=== PATIENT | female | born 1975 | race Caucasian/White ===

== ENCOUNTER → 2019-11-18 09:58 | Outpatient (BNVA) | payer MEDICAID, SELFPAY | PROVIDERS: Family Provider Family Medicine; PCP Family Medicine; Visit Provider Anesthesiology | DX: M54.5 Low back pain (principal); M50.30 Other cervical disc degeneration, unspecified cervical region; F17.210 Nicotine dependence, cigarettes, uncomplicated; Z79.891 Long term (current) use of opiate analgesic | CPT/HCPCS: 99214 ==

== ENCOUNTER → 2020-01-13 10:51 | Outpatient (BNVA) | payer MEDICAID, SELFPAY | PROVIDERS: Family Provider Family Medicine; PCP Family Medicine; Visit Provider Nurse Practitioner | DX: G89.29 Other chronic pain (principal); M54.42 Lumbago with sciatica, left side; M17.0 Bilateral primary osteoarthritis of knee; F17.210 Nicotine dependence, cigarettes, uncomplicated; Z79.891 Long term (current) use of opiate analgesic | CPT/HCPCS: 99215 ==

== ENCOUNTER → 2020-03-09 10:34 | Outpatient (BNVA) | payer MEDICAID, SELFPAY | PROVIDERS: Family Provider Family Medicine; PCP Family Medicine; Visit Provider Anesthesiology | DX: M17.0 Bilateral primary osteoarthritis of knee (principal); M25.561 Pain in right knee; M25.552 Pain in left hip; F17.210 Nicotine dependence, cigarettes, uncomplicated; Z79.891 Long term (current) use of opiate analgesic | CPT/HCPCS: 20610; 77003; J1030; J2001; J3490 ==

== ENCOUNTER → 2020-03-21 15:20 | Outpatient (BNVA) | payer MEDICAID, SELFPAY | PROVIDERS: Family Provider Family Medicine; PCP Nurse Practitioner Family; Visit Provider Nurse Practitioner Family | DX: I10 Essential (primary) hypertension (principal); K95.09 Other complications of gastric band procedure; E55.9 Vitamin D deficiency, unspecified; N93.9 Abnormal uterine and vaginal bleeding, unspecified; F52.22 Female sexual arousal disorder | CPT/HCPCS: 80053; 80061; 81003; 82306; 82607; 82746; 84425; 84443; 85025 ==

== ENCOUNTER → 2020-04-11 10:24 | Outpatient (BNVA) | payer MEDICAID, SELFPAY | PROVIDERS: Family Provider Family Medicine; PCP Nurse Practitioner Family; Visit Provider Anesthesiology | DX: G89.29 Other chronic pain (principal); M54.42 Lumbago with sciatica, left side; M54.9 Dorsalgia, unspecified; M50.30 Other cervical disc degeneration, unspecified cervical region; M17.0 Bilateral primary osteoarthritis of knee; F17.210 Nicotine dependence, cigarettes, uncomplicated; Z79.891 Long term (current) use of opiate analgesic | CPT/HCPCS: 99214 ==

== ENCOUNTER → 2020-04-26 14:05 | Outpatient (BNVA) | payer MEDICAID, SELFPAY | PROVIDERS: Family Provider Family Medicine; PCP Nurse Practitioner Family; Visit Provider Obstetrics & Gynecology | DX: N93.9 Abnormal uterine and vaginal bleeding, unspecified (principal); Z90.721 Acquired absence of ovaries, unilateral | CPT/HCPCS: 76830 ==

== ENCOUNTER 2020-05-09 06:14 | Day surgery (SDC) | payer MEDICAID, SELFPAY ==
[2020-05-08 12:25] VITALS: BMI 65.9
[2020-05-08 12:41] LABS: OR HCG Qualitative Urine Negative (Negative)
--- NOTE | 2020-05-08 12:56 | ANES.PREANE2 ---
Pre-Anesthetic Assessment Pre-Anesthetic Assessment: Height/Weight: Height 1.8 m Weight 214.549 kg Preop Diagnosis: Abnormal uterine bleeding. Proposed Procedure: Operation Date: 05/09/20 07:00 Proposed Procedures p Hysteroscopy [id number] n93.9(Not Applicable) - Paul Deshpande MD s Dilation And Curettage (D&C)/Paracervical Block(Not Applicable) - Paul Deshpande MD Social: Social History: Tobacco and No alcohol Exam: Pre-Anes Outpt Exam: alert, oriented x 3, clear to auscultation bilaterally and regular rate & rhythm Airway: Submandibular: WNL Cervical ROM: WNL MP: 1 Dentition: Other (teeth ok) History/ROS: No significant history except as noted Pulmonary: Pulmonary: Sleep apnea CV/HEM: CV/HEM: None reported : : None reported Hepatic: Hepatic: None reported GI: GI: GERD (occ) Metabolic: Metabolic: Morbid obesity Musc/skel: Musc/skel: Lower Back Pain and OA/DJD Neuropsych: Neuropsych: Anxiety and Depression Anesthetic Plan: ASA status: 3 Anesthesia: Anesthesia Evaluation and MAC Risk of > 500 ml blood loss (7ml/kg in children): No PFSH Anesthesia PFSH: Medical History (Updated 04/15/20 @ 18:41 by Paul Deshpande MD) Arthralgia of cervical spine Current every day smoker Degeneration of intervertebral disc of cervical 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 Has been on and off treatment for many years. Surgical History (Updated 04/15/20 @ 18:41 by Paul Deshpande MD) H/O bariatric surgery (09/14/12) Laparoscopic band. H/O section 12/21/1991, 12/14/1993, 04/17/1995. History of bariatric surgery (~2016) Laparoscopic gastric sleeve. History of D&C (~09/2003) History of laparoscopic cholecystectomy (~1993) History of laparoscopy (09/21/18) Dx: Small bowel obstruction. Lysis of adhesions. Performed by Dr. Yee at [facility] [place]. History of left salpingo-oophorectomy (01/15/06) Laparotomy. Performed by Dr. Lovelace at [facility] [place]. 10 cm left adnexal cystic mass. Family History Father Diabetes Hypertension Social History Smoking and tobacco status: current every day smoker cigarettes Packs smoked per day: 1 Alcohol intake: never Substance/Drug Use: never History of recent travel: No Data Anesthesia CBC & Chem 7: 05/08/20 12:35 Other Labs: Laboratory Results - last 48 hr 05/08/20 12:17 Urine HCG, Qual Negative Cardiac Studies: No Data to Display
[2020-05-08 13:15] LABS: Basophils % 0.4 %; Eosinophils # 0.2 10^3/uL (0.0-0.8); Eosinophils % 2.5 %; Hematocrit 37.8 % (37.0-47.0); Hemoglobin 11.2 g/dL (11.5-15.3); Lymphocytes # 2.1 10^3/uL (0.8-4.8); Lymphocytes % 26.7 %; Mean Corpuscular HGB Conc 29.6 g/dL (30.0-36.0); Mean Corpuscular Hemoglobin 25.3 pg (28.0-34.0); Mean Corpuscular Volume 85.5 fL (81-99); Mean Platelet Volume 10.4 fL (7.4-10.4); Monocytes # 0.9 10^3/uL (0.2-0.9); Monocytes % 11.5 %; Neutrophils # 4.6 10^3/uL (1.8-7.7); Neutrophils % 58.4 %; Nucleated Red Blood Cells % 0 %; Platelet Count 264 10^3/cmm (130-400); Red Blood Count 4.42 10^6/uL (4.1-5.3); White Blood Count 7.9 10^3/uL (4.0-10.0)
[2020-05-09] VITALS (8 sets, daily range): BP systolic 126–176; BP diastolic 68–97; PULSE 48–87; RESP 17–23; TEMP 36.1–36.6; O2SAT 95–100
--- NOTE | 2020-05-09 06:41 | W.PM.OPSUD ---
Surgery/Procedure H&P Update DATE OF PROCEDURE: May 09, 2020 DATE H&P PERFORMED: 05/08/20 H&P UPDATE INFORMATION: I have reviewed H&P completed within last 30 days, I have examined patient prior to procedure, No changes to prior documentation and H&P is in [facility] EMR on date indicated PREOP DIAGNOSIS: Abnormal uterine bleeding. PLANNED PROCEDURE: Operation Date: 05/09/20 07:00 Proposed Procedures p Hysteroscopy [id number] n93.9(Not Applicable) - Paul Deshpande MD s Dilation And Curettage (D&C)/Paracervical Block(Not Applicable) - Paul Deshpande MD
[2020-05-09] MEDS: sodium chloride 0.9% 1,000 ML 30 ML IV (06:42)
[2020-05-09] MEDS: ketorolac 30 mg/mL INJ IVP (06:44)
--- NOTE | 2020-05-09 08:05 | P.OP_ITS ---
Operative Report Date of procedure: May 09, 2020 Pre-op Diagnosis: Abnormal uterine bleeding. Post-op Diagnosis: Abnormal uterine bleeding Procedure Done: Hysteroscopy with dilation and curettage, Paracervical block Specimens removed/disposition: Endometrial curettings Surgeon: Paul Deshpande Senior Civil Engineer: Varinder Anesthesia: General and Other (Paracervical block) Estimated blood loss (mL): 5 IV fluids (mL): 800 Complications: None Findings: Thick fluffy endometrial lining with multiple folds seen on hysteroscopy. Neither tubal ostia could be identified. No significant uterine prolapse noted. Condition: stable Brief History: Patient is a 45-year-old white female 3, para 3-0-0-2. She had presented to the office as a referral from ANDRES Hernandez, due to abnormal bleeding. Patient had been previously diagnosed with PCOS and had gone off of her treatment (quick progesterone). As a result she had not had a regular period since November 2019. Her cycles are very infrequent when they occur. She is now been having irregular bleeding with no pattern. She bleeds almost daily and ranges from heavy soaking episodes to light spotting. Reports the passage of up to fist sized clots. She had an ultrasound performed which showed a 3-1/2 cm endometrial stripe with irregularity in its appearance. Further endometrial sampling was recommended, however, due to the patient's weight, it was unable to be performed in the office and she is now presenting to the hospital for hysteroscopy with D&C. Procedure: The patient was taken to the operating room where general anesthesia was obtai lizabeth. She was prepped and draped in the usual sterile fashion in the dorsal supine position with legs in Gavin style stirrups. Sequential compression boots had been placed prior to starting the case. Patient had voided just before coming to the operating room. Exam under anesthesia was performed and the patient was noted to have no significant uterine prolapse. A single-sided Graves-style speculum was placed and the cervix was grasped with a single-tooth tenaculum. A paracervical block was performed with a total of 12 mL of 2% lidocaine with epinephrine used. The cervix was serially dilated until a operative hysteroscope could be passed. Crystalloid solution was used as a distention media. The endometrial cavity was inspected. Thick, fluffy endometrial lining with multiple folds noted. Neither tubal ostia could be identified. Sharp curettage was performed with large amount of tissue obtained. The tenaculum was removed and there was minimal bleeding from the tenaculum site. Patient tolerated the procedure well. Sponge and needle counts were correct. DRAINS: None POSTOPERATIVE STATUS: The patient was transferred to the recovery room in satisfactory condition DISPOSITION: Discharge to home when criteria was met. FOLLOWUP APPOINTMENT: Followup appointment had been scheduled on 05/19/2020 in my office. MEDICATIONS: Patient to resume usual home medications.
--- NOTE | 2020-05-09 08:14 | SUR.PHASEI ---
pt awake alert talkative, pt HOB at 40 degrees, pt is obese, but with good resp effort now on ra sats remain 100%
[2020-05-09] MEDS: cetylpyridinium Lozenge 1 EACH MUCOUS MEM (08:31)
== END 2020-05-09 09:20 | disposition home or self-care (01) ==
PROVIDERS: Family Provider Family Medicine; PCP Nurse Practitioner Family; Visit Provider Obstetrics & Gynecology
PROC: 0UJD8ZZ Inspection of Uterus and Cervix, Via Natural or Artificial Opening Endoscopic (ICD-10-PCS; CPT 58555; principal; 2020-05-09 07:00)
PROC: (CPT 58120; 2020-05-09 07:00)
DX: N93.9 Abnormal uterine and vaginal bleeding, unspecified (principal); G47.30 Sleep apnea, unspecified; E66.01 Morbid (severe) obesity due to excess calories; Z68.44 Body mass index [BMI] 60.0-69.9, adult; M19.90 Unspecified osteoarthritis, unspecified site; F41.9 Anxiety disorder, unspecified; F32.9 Major depressive disorder, single episode, unspecified; F17.210 Nicotine dependence, cigarettes, uncomplicated; I10 Essential (primary) hypertension
CPT/HCPCS: 58558; 12345; 36415; 81025; 84703; 85025; 88305; 96374; J0330; J1885; J2001; J2250; J2405; J2704; J2710; J3010; J3490; J7030

== ENCOUNTER → 2020-06-07 10:32 | Outpatient (BNVA) | payer MEDICAID, SELFPAY | PROVIDERS: Family Provider Family Medicine; PCP Nurse Practitioner Family; Visit Provider Anesthesiology | DX: G89.29 Other chronic pain (principal); M54.42 Lumbago with sciatica, left side; M50.30 Other cervical disc degeneration, unspecified cervical region; M54.9 Dorsalgia, unspecified; F17.210 Nicotine dependence, cigarettes, uncomplicated; Z79.891 Long term (current) use of opiate analgesic | CPT/HCPCS: 99213; 99214 ==

== ENCOUNTER → 2020-06-16 13:17 | Outpatient (BNVA) | payer MEDICAID, SELFPAY | PROVIDERS: Family Provider Family Medicine; PCP Nurse Practitioner Family; Visit Provider Obstetrics & Gynecology | DX: N93.9 Abnormal uterine and vaginal bleeding, unspecified (principal) | CPT/HCPCS: 85025 ==

== ENCOUNTER 2020-06-19 16:22 | Inpatient (IN) | payer MEDICAID, SELFPAY ==
--- NOTE | 2020-06-19 17:20 | PC.NURSE ---
patient arrived on unit. patient denies pain at this time.
--- NOTE | 2020-06-19 19:02 | PC.NURSE ---
Addendum entered by Linda Londono CNA 06/19/20 19:05: 98.7, 72PR, 18R, 9902 125/59 Original Note: Patient Vitals 98.[address] 18 Resp 99 o2 100/50 BP.
[2020-06-19 20:42] LABS: Hematocrit 21.9 % (37.0-47.0)
[2020-06-19 20:48] LABS: Hemoglobin 5.9 g/dL (11.5-15.3)
[2020-06-19 21:03] VITALS: BP 122/74; PULSE 80; RESP 20; TEMP 36.8; O2SAT 99
--- NOTE | 2020-06-19 21:07 | PC.NURSE ---
pt to the floor on day shift. Received T/S around 1800. Blood bank called to let me know blood was ready and after attempting to retrieved it was told they needed an updated HBG/HCT. That order came back critical at 5.9. Called Albino and he ordered another 2 units, for a total of 4 units. Pt currently in no distress as the first 15 min of transfusion is in progress. Pt educated on signs of reaction and is aware. Will monitor closely.
[2020-06-19] MEDS: sodium chloride 0.9% (100 ml) 200 ML 75 ML (21:17)
[2020-06-19 21:20] VITALS: BP 146/76; PULSE 85; RESP 20; TEMP 37.2; O2SAT 98
[2020-06-19 21:35] VITALS: BP 130/85; PULSE 93; RESP 20; TEMP 37.1; O2SAT 99
[2020-06-19 22:35] VITALS: BP 125/75; PULSE 89; RESP 18; TEMP 37.3; O2SAT 99
[2020-06-19 23:35] VITALS: BP 144/79; PULSE 82; RESP 20; TEMP 37.1; O2SAT 100
[2020-06-20] VITALS (17 sets, daily range): BP systolic 119–188; BP diastolic 60–86; PULSE 71–113; RESP 16–20; TEMP 36.6–37.2; O2SAT 94–99
[2020-06-20] MEDS: sodium chloride 0.9% (100 ml) 100 ML 75 ML (00:36)
--- NOTE | 2020-06-20 00:48 | PC.NURSE ---
second unit transfusing at this time, no reaction with in the first 15min, patient in good spirits and resting comfortably
--- NOTE | 2020-06-20 07:41 | PC.NURSE ---
Started administration of 4th unit of blood. patient has no complaints of pain at this time. patient is short of breath with any activity. patient said I am still bleeding alot, they are going to have to do something. When patient stands us, patient had blood dripping on floor. Patient said she told the doctor she was bleeding like that and she already tried two medications and they didn't work, and doctor said he wanted to try replacing blood first then some possible estrogen.
--- NOTE | 2020-06-20 08:16 | P.HP_ITS ---
Providers/Chief Complaint Primary Care Provider: ANDRES Hernandez Chief Complaint: TRANSFUSION HPI TABULAR TYPIST History of Present Illness Ziyad Felipe is a 45 year old female. Status post hysteroscopy and D&C on 05/08/2020 due to abnormal uterine bleeding. Patient refers she has not stopped bleeding since the surgery. Treated with tranexamic acid, but referred that she was still bleeding and feel weakness. Patient came to the clinic to be reassessed. She states that she has went through 78 pads since her surgery with Dr. Deshpande in May. She states that she is changing a pad every 2.5-3 hours. She complains of pelvic cramping today. She states that the pain has been worse the pst couple of days. She states that she feels very weak and not able to do anything. She states that it takes her 45 minutes to shower and she uses a shower chair. She states that she has had a 99 temp over the past 3 weeks. She states that she feels like she is going to pass out. She pushes a wheelchair at home to help her ambulate. She continues to take the Lysteda. Present Details Date of Last Menstrual Period: 05/09/20 Calculated Date of Delivery: 02/13/21 Gestational Age Based on Last Menstrual Period: 6 Review of Systems General: Reports: 10 or more systems reviewed and unremarkable except in HPI and below Const: Reports: fatigue and other (weakness); Denies: fever(s) or chills : Reports: vaginal bleeding, irregular period and metrorrhagia; Denies: flank pain, difficulty voiding, dysuria, urinary frequency, urinary urgency, urinary incontinence, genital lesions, genital pruritis, vaginal dryness, vaginal odor, vaginal discharge, dysmenorrhea, amenorrhea, pelvic pain, prolapse symptoms or dyspareunia Medications/Allergies Home Medications Medication Instructions Recorded Confirmed Last Taken Type multivitamin 1 tab PO BEDTIME 11/18/19 06/20/20 06/18/20 History fexofenadine 180 mg tablet 180 mg PO DAILY PRN 03/09/20 06/20/20 05/08/20 History cholecalciferol (vitamin D3) 1,250 50,000 unit PO .WEEKLY #4 cap 04/21/20 06/20/20 06/18/20 Rx mcg (50,000 unit) capsule trazodone 50 mg tablet 100 mg PO DAILY #60 tab 04/21/20 06/20/20 06/18/20 Rx hydrocodone 10 mg-acetaminophen 1 tab PO Q6H PRN 30 Days #120 tab 06/07/20 06/20/20 06/19/20 10:00 Rx 325 mg tablet tramadol 50 mg tablet 50 mg PO TID PRN 30 Days #90 tab 06/07/20 06/20/20 Unknown Rx pregabalin 50 mg capsule 50 mg PO TID PRN cap 06/19/20 06/20/20 06/18/20 History tizanidine 4 mg capsule 4 mg PO TID PRN cap 06/19/20 06/20/20 06/18/20 History Allergies Allergy/AdvReac Type Severity Reaction Status Date / Time red dye Allergy Intermediate rash Verified 06/19/20 15:13 amoxicillin [From Augmentin] Allergy HIVES AND Verified 06/19/20 15:12 ITCHING clavulanic acid Allergy HIVES AND Verified 06/19/20 15:12 [From Augmentin] ITCHING meperidine [From Demerol] Allergy HIVES, Verified 06/19/20 15:12 ITCHING AND SHORTNESS OF BREATH PFSH TABULAR TYPIST PFSH: Medical History (Updated 06/20/20 @ 08:18 by Leonel Puckett MD) Arthralgia of cervical spine Current every day smoker Degeneration of intervertebral disc of cervical 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 Has been on and off treatment for many years. Surgical History H/O bariatric surgery (09/14/12) Laparoscopic band. H/O section 12/21/1991, 12/14/1993, 04/17/1995. History of bariatric surgery (~2016) Laparoscopic gastric sleeve. History of D&C (~09/2003) History of laparoscopic cholecystectomy (~1993) History of laparoscopy (09/21/18) Dx: Small bowel obstruction. Lysis of adhesions. [place] [facility] [place] History of left salpingo-oophorectomy (01/15/06) Laparotomy. [place] Lovel[place] [facility] [place] 10 cm left adnexal cystic mass. Family History Father Diabetes Hypertension Social History Smoking and tobacco status: current every day smoker cigarettes Packs smoked per day: 1 Alcohol intake: never Other Female Reproductive History: Hx Age of Menarche: 10 Duration of menses: 6-7 days Cycle Length: every 28 days, LMP unknown Menstrual flow: normal/abnormal: heavy History History History 3 Term 3 Miscarriages/Ectopic 0 0 Living Children 2 Vitals/I&O/Wt Last Vital Signs Temp 98.8 F 06/20/20 07:48 Pulse 88 06/20/20 07:48 Resp 18 06/20/20 07:48 BP 188/83 06/20/20 07:48 Pulse Ox 94 06/20/20 07:48 06/19/20 06/20/20 06/20/20 22:59 06:59 14:59 Intake Total 0 / 0 700 / 700 350 / 350 Balance 0 / 0 700 / 700 350 / 350 Physical Exam Narrative: EXAM NARRATIVE: GENERAL APPEARANCE: well developed, COMMON NORMALS: no acute distress, average body habitus, alert and well nourished ORIENTATION/CONSCIOUSNESS: Yes oriented to person, Yes oriented to place and Yes oriented to time Neck/C-Spine: COMMON NORMALS: Thyroid normal GENERAL: Yes trachea midline THYROID: Thyroid normal Resp: COMMON NORMALS: normal respiratory effort and clear to auscultation bilaterally AUSCULTATION: clear to auscultation bilaterally Cardio: COMMON NORMALS: regular rate, regular rhythm, No gallops present (Cardio), No murmurs present (Cardio) and No rub (Cardio) RATE: regular rate RHYTHM: regular rhythm Neuro: SENSORIUM/ORIENTATION: Yes alert, Yes oriented to person, Yes oriented to place and Yes oriented to time Psych: COMMON NORMALS: normal affect MOOD & AFFECT: Yes euthymic mood Data : 06/20/20 11:06 A&P Assessment and plan (1) Anemia: Symptomatic anemia patient admitted for blood transfusion Status: Acute Qualifiers: Anemia type: other cause Other causes of anemia: other cause, not classified Qualified Code(s): D64.89 - Other specified anemias (2) Abnormal uterine bleeding due to disorder of endometrium: Each ear be causing symptomatic anemia admitted for blood transfusion and estrogen therapy. Status: Acute Attestations Medical Necessity Statement*: By professional opinion for admitting diagnosis. Coding Level of Care Code Acute Cop Winder for [facility] Fwd Diagnoses Anemia D64.89 Anemia type: other cause Other causes of anemia: other cause, not classified Abnormal uterine bleeding due to disorder of endometrium N93.9; N85.9
--- NOTE | 2020-06-20 08:26 | PC.NURSE ---
Rcvd verbal order from Dr Puckett to continue home medications, order 1 unit FFP, regular diet, cbc and H&H and Estrogen. Religious Healer put orders in as requested.
[2020-06-20] MEDS: sodium chloride 0.9% (100 ml) 100 ML 50 ML (08:31)
--- NOTE | 2020-06-20 08:40 | PC.NURSE ---
error entered in the TAR for BP at 0748. Blood pressure was 155/83 not 188/83.
[2020-06-20] MEDS: HYDROcodone-acetaminophen 10-325 mg Tablet 1 TAB PO ×2 (09:16→21:53)
[2020-06-20] MEDS: tizanidine 4 mg Tablet PO ×2 (09:17→21:54)
[2020-06-20] MEDS: estrogens Conjugated 25 mg/5 mL SDV IVP (10:04)
[2020-06-20 11:14] LABS: Hematocrit 27.2 % (37.0-47.0); Mean Corpuscular HGB Conc 29.4 g/dL (30.0-36.0); Mean Corpuscular Hemoglobin 23.5 pg (28.0-34.0); Platelet Count 238 10^3/cmm (130-400); Red Cell Distribution Width 16.5 % (12.1-15.1); White Blood Count 7.1 10^3/uL (4.0-10.0)
--- NOTE | 2020-06-20 11:15 | PC.CHAP ---
Pastoral Care Encounter/Spiritual Assessment Type of Contact [] Declined brass sorter visit [] Patient/Family/Request visit [] Outpatient visit [] Follow-up visit [] Physician referral [] Code/Alert [x] Routine visit [] Staff referral [] Actively dying [] Patient sleeping [] Family support [] [] Out of room [] Palliative care [] [x] Receiving care in room [] Pre-surgical visit [] Trauma [] Long length of stay [] ICU visit [] Other: Relational/Emotional Strength [x] Patient feels connected with others/family/visitors/staff [] Distress [] Loneliness/isolation [] Abandonment Spirituality of Patient [x] Person of [place] [] Attends Cheondoism of their [place] [x] Believes in Prayer [] Reads Bible or Samaritan materials [] There are Spiritual issues to be addressed Warehouse Lead Interventions [x] Prayer [x] Active listening [x] Non-anxious presence [x] Spiritual/emotional support [] Crisis/trauma care [x] Spiritual counseling [] Bereavement support [] Provided bereavement packet [] Provided Bible/devotional materials [] Provided toy/stuffed animal, coloring book to patient or family member [] Provided Communion [] Anointing/[place] [] Salvation [x] Completed spiritual assessment [] Other: Impact on Illness or Injury [] Angry [] Fearful [] Anxious [] Often cries [] Exhaustion [] Unable to work [] Unable to attend latter day [] Unable to walk/stand [] Unable to read [] Unable to drive [] Unable to eat/drink [] Unable to sleep [] Unable to be with family [] Patient intubated [] Other: Summary Had procedure in some pain, Has a good and good attirude, going home Time spent with patient 10 mins
[2020-06-20 12:20] LABS: Absolute Segmented Neutrophil 4.9 10/cmm (1.6-7.1); Lymphocytes 25 %; Segmented Neutrophils 69 %; Total Cells Counted 100 (0-100)
[2020-06-20 12:21] LABS: Anisocytosis 1+; Basophils Absolute 0.1 10^3/cmm (0.0-0.2); Eosinophils 1 %; Monocytes Absolute 0.4 10^3/cmm (0.1-0.6); Platelet Estimate Normal (Normal); Polychromasia Trace
--- NOTE | 2020-06-20 15:41 | P.PN_ITS ---
Subjective Subjective: Interval history: 45-year-old female with vaginal bleeding post hysteroscopy with D&C and medical management. Refers feeling better but she still with vaginal bleeding. Denied pain. Vitals/I&O/Wt Last Vital Signs Temp 98.6 F 06/20/20 10:55 Pulse 71 06/20/20 10:55 Resp 16 06/20/20 10:55 BP 123/64 06/20/20 10:55 Pulse Ox 94 06/20/20 10:55 06/20/20 06/20/20 06/20/20 06:59 14:59 22:59 Intake Total 700 / 700 1763 / 1763 Balance 700 / 700 1763 / 1763 Weight last 48 hrs Weight 211.329 kg Physical Exam Const: COMMON NORMALS: no acute distress, average body habitus and patient oriented x3 GENERAL APPEARANCE: cooperative and well kempt HENMT: COMMON NORMALS: normocephalic and atraumatic HEAD & SCALP: normocephalic and atraumatic Neck/C-Spine: COMMON NORMALS: full ROM Chest: COMMONS NORMALS: normal inspection of the chest Resp: COMMON NORMALS: normal respiratory effort Cardio: COMMON NORMALS: regular rate and regular rhythm RATE: regular rate RHYTHM: regular rhythm GI: INSPECTION: Yes normal to inspection : SPECULUM EXAM - VAGINA: Yes vaginal bleeding Amount: medium/moderate OB/EXTERNAL & SPECULUM: vaginal bleeding Neuro: COMMON NORMALS: patient oriented x3 Psych: APPEARANCE: Yes well kempt Data : 06/20/20 11:06 A&P Assessment and plan (1) Abnormal uterine bleeding due to disorder of endometrium: Patient status post hysteroscopy and D&C with abnormal uterine bleeding, treated with tranexamic acid, but continue with vaginal bleeding. She was found to be severely anemic and admitted for blood transfusion, and estrogen therapy. She still with vaginal bleeding, but refers less flow. She has received only one dose of estrogen. Status: Acute Attestations Medical Necessity Statement*: My professional opinion for admitting diagnosis. Coding Level of Care Code Acute Technology Applications [facility] Diagn[facility] Abnormal uterine bleeding due to disorder of endometrium N93.9; N85.9
--- NOTE | 2020-06-20 15:43 | PC.NURSE ---
Dr Puckett called to check on patient. credit underwriter reported patient's bleeding had decreased. patient changes pad every 3 hours and pad is now not as saturated.
--- NOTE | 2020-06-20 16:38 | PC.NURSE ---
per pharmacy, Estrogen is out of stock. Notified Dr Puckett. Per Dr Puckett, no medication change.
[2020-06-20] MEDS: multivitamin therapeutic Tablet 1 TAB PO (21:52)
[2020-06-20] MEDS: trazodone 100 mg Tablet PO (21:53)
[2020-06-20] MEDS: pregabalin 50 mg Capsule PO (21:53)
[2020-06-21] VITALS (7 sets, daily range): BP systolic 123–148; BP diastolic 69–80; PULSE 71–83; RESP 12–20; TEMP 36.6–37.1; O2SAT 91–98
[2020-06-21] MEDS: estrogens Conjugated 25 mg/5 mL SDV IVP ×3 (10:29→21:10)
--- NOTE | 2020-06-21 11:26 | PC.NURSE ---
Patient states she has improved on the frequency of aleks pad changes. she states she changed pad now and it had lasted 7 hours. SALLY Lloyd
[2020-06-21] MEDS: TRAMadol 50 mg Tablet PO (11:51)
--- NOTE | 2020-06-21 15:09 | PM.PN ---
Subjective Subjective: Interval history: 45-year-old female with abnormal uterine bleeding, anemia status post blood transfusion. Refers vaginal bleeding is less, but she still bleeding Vitals/I&O/Wt Last Vital Signs Temp 98.0 F 06/21/20 11:21 Pulse 80 06/21/20 11:21 Resp 18 06/21/20 11:21 BP 135/74 06/21/20 11:21 Pulse Ox 94 06/21/20 11:21 06/21/20 06/21/20 06/21/20 06:59 14:59 22:59 Intake Total 500 / 3223 960 / 960 Balance 500 / 3223 960 / 960 Weight last 48 hrs Weight 211.329 kg Physical Exam Const: COMMON NORMALS: no acute distress, average body habitus and patient oriented x3 GENERAL APPEARANCE: cooperative and well kempt HENMT: COMMON NORMALS: normocephalic and atraumatic HEAD & SCALP: normocephalic and atraumatic Neck/C-Spine: COMMON NORMALS: full ROM Chest: COMMONS NORMALS: normal inspection of the chest Resp: COMMON NORMALS: normal respiratory effort Cardio: COMMON NORMALS: regular rate and regular rhythm RATE: regular rate RHYTHM: regular rhythm GI: INSPECTION: Yes normal to inspection : SPECULUM EXAM - VAGINA: Yes vaginal bleeding OB/EXTERNAL & SPECULUM: vaginal bleeding Neuro: COMMON NORMALS: patient oriented x3 Psych: APPEARANCE: Yes well kempt Data : 06/20/20 11:06 A&P Additional A&P Information 45-year-old female with abnormal uterine bleeding status post blood transfusion. IV estrogen therapy ordered. The pharmacy has not been able to obtain the cautery unit on estrogen that is needed to treat the patient. She had only received 1 dose today. Patient was counseled regarding IV estrogen therapy to stop her bleeding. The patient will continue to stay inpatient until the bleeding stopped by the therapy prescribed. Attestations Medical Necessity Statement*: In my professional opinion per admitting diagnosis Coding Level of Care Code Acute Director Of Compliance for [facility]
--- NOTE | 2020-06-21 16:12 | PC.RESP ---
SMOKING CESSATION INFORMATION SENT TO PATIENT.
[2020-06-21 16:17] LABS: Hematocrit 30.9 % (37.0-47.0); Hemoglobin 8.8 g/dL (11.5-15.3); Mean Corpuscular HGB Conc 28.5 g/dL (30.0-36.0); Mean Corpuscular Hemoglobin 23.2 pg (28.0-34.0); Mean Corpuscular Volume 81.3 fL (81-99); Mean Platelet Volume 10.6 fL (7.4-10.4); Platelet Count 265 10^3/cmm (130-400); Red Cell Distribution Width 17.3 % (12.1-15.1)
[2020-06-21 19:25] LABS: Absolute Eosinophils 0.1 10^3/cmm (0.0-0.7); Eosinophils 2 %; Lymphocytes 24 %; Monocytes Absolute 0.6 10^3/cmm (0.1-0.6); Platelet Estimate Normal (Normal); Segmented Neutrophils 67 %; Total Cells Counted 100 (0-100)
[2020-06-21 19:26] LABS: Anisocytosis 1+
[2020-06-21] MEDS: multivitamin therapeutic Tablet 1 TAB PO (20:59)
[2020-06-21] MEDS: trazodone 100 mg Tablet PO (21:00)
[2020-06-22] MEDS: TRAMadol 50 mg Tablet PO (01:44)
[2020-06-22] MEDS: tizanidine 4 mg Tablet PO (01:46)
[2020-06-22 04:00] VITALS: BP 120/67; PULSE 75; RESP 20; TEMP 36.6
[2020-06-22] MEDS: estrogens Conjugated 25 mg/5 mL SDV IVP ×3 (06:07→17:27)
[2020-06-22 07:33] VITALS: BP 123/75; PULSE 67; RESP 20; TEMP 36.5; O2SAT 95
[2020-06-22 11:32] VITALS: BP 135/72; PULSE 72; RESP 20; TEMP 36.4; O2SAT 95
[2020-06-22 16:00] VITALS: BP 142/81; PULSE 73; RESP 20; TEMP 36.7; O2SAT 94
--- NOTE | 2020-06-22 16:12 | PC.NURSE ---
Called Dr Puckett left msg, about IV Estrogen
--- NOTE | 2020-06-22 17:29 | PM.OBGYDC ---
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 Date of Admission: 06/19/20 16:22 Date of Discharge: 06/22/20 Attending Provider at Admission: Leonel Puckett MD Attending Provider at Discharge: Leonel Puckett MD Primary Care Provider: ANDRES Hernandez Diagnoses at Discharge Discharge Diagnosis (1) Anemia: Status: Acute Qualifiers: Anemia type: other cause Other causes of anemia: other cause, not classified Qualified Code(s): D64.89 - Other specified anemias (2) Abnormal uterine bleeding due to disorder of endometrium: Status: Acute Reason for Visit Reason for Visit: TRANSFUSION Hospital Course Hospital Course: 45-year-old female status post hysteroscopy and D&C Due to abnormal uterine bleeding, Continue with vaginal bleeding unresponsive to medical management. She developed a symptomatic severe anemia. She was admitted for blood transfusion she received 4 units of packed red blood cells and 1 unit of plasma. She was treated with IV conjugated estrogen until bleeding stopped today. Is afebrile hemodynamically stable. Ambulating without difficulty. Refers feeling 100% better. Patient was counseled on device to see Dr. Deshpande. Physical Exam Const: COMMON NORMALS: no acute distress, average body habitus and patient oriented x3 GENERAL APPEARANCE: cooperative and well kempt HENMT: COMMON NORMALS: normocephalic and atraumatic HEAD & SCALP: normocephalic and atraumatic Neck/C-Spine: COMMON NORMALS: full ROM Chest: COMMONS NORMALS: normal inspection of the chest Resp: COMMON NORMALS: normal respiratory effort Cardio: COMMON NORMALS: regular rate and regular rhythm RATE: regular rate RHYTHM: regular rhythm GI: INSPECTION: Yes normal to inspection : SPECULUM EXAM - VAGINA: No vaginal bleeding OB/EXTERNAL & SPECULUM: No vaginal bleeding Neuro: COMMON NORMALS: patient oriented x3 Psych: APPEARANCE: Yes well kempt Discharge Data Data Completed and Pending: Laboratory Tests 05/08/20 06/16/20 06/19/20 12:35 13:15 16:00 WBC 7.9 8.6 Hgb 11.2 L 6.8 L 5.9 L* Plt Count 264 316 06/20/20 06/21/20 11:06 15:52 WBC 7.1 9.0 Hgb 8.0 L D 8.8 L Plt Count 238 265 Labs from last 24 hours 06/21/20 15:52 Total Counted 100 Absolute Neutrophi ls 6.0 Segmented Neutroph ils 67 Abs Segm Neuts (Ma n) 6.0 Band Neutrophils 0.0 Abs Band Neuts (Ma n) 0.0 Lymphocytes (Manua l) 24 Monocytes (Manual) 7.0 Absolute Monocytes 0.6 Eosinophils (Manua l) 2 Absolute Eosinophi ls 0.1 Platelet Estimate Normal Anisocytosis 1+ H Vitals: Last Vital Signs Temp 98.0 F 06/22/20 16:00 Pulse 73 06/22/20 16:00 Resp 20 H 06/22/20 16:00 BP 142/81 06/22/20 16:00 Pulse Ox 94 06/22/20 16:00 Discharge Plan Discharge Patient Disposition: Home Condition: Stable Prescriptions: Continued multivitamin Tablet 1 tab PO BEDTIME RF: 0 fexofenadine [Rosa Allergy] 180 mg tablet 180 mg PO DAILY PRN (Reason: Allergy Symptoms) RF: 0 hydrocodone-acetaminophen 10-325 mg tablet 1 tab PO Q6H PRN (Reason: pain) 30 Days Qty: 120 RF: 0 tramadol 50 mg tablet 50 mg PO TID PRN (Reason: pain) 30 Days Qty: 90 RF: 1 pregabalin [Lyrica] 50 mg capsule 50 mg PO TID PRN (Reason: pain) RF: 0 tizanidine 4 mg capsule 4 mg PO TID PRN (Reason: muscle spasticity) RF: 0 trazodone 50 mg tablet 100 mg PO DAILY Qty: 60 RF: 1 cholecalciferol (vitamin D3) 1,250 mcg (50,000 unit) capsule 50,000 unit PO .WEEKLY Qty: 4 RF: 0 Discharge Orders: Discharge Order (Routine); Ordered 06/22/20 Ordered By: Leonel Puckett Referrals: Paul Deshpande MD [Physician] - (ANNE. Please call patient at home with a follow up appointment and time. Faxed information to the clinic) Discharge Diet: Regular Discharge Activity: Increase activity as tolerated Patient Instructions: Abnormal Uterine Bleeding Activity Restrictions/Additional Instructions: Pelvic rest for 6 weeks (no sex, no tampons, no vaginal douches). Return to the emergency room if any fever, increased bleeding or pain. 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
[2020-06-22 17:51] VITALS: BP 142/81; PULSE 73; RESP 20; TEMP 36.7; O2SAT 94
== END 2020-06-22 18:05 | disposition home or self-care (01) | DRG 812 ==
LOC: GILAB 16:24 → MEDSURG 06-20 08:36
PROVIDERS: Admitting Provider Obstetrics & Gynecology; Family Provider Family Medicine; PCP Nurse Practitioner Family; Visit Provider Obstetrics & Gynecology
DX: D64.89 Other specified anemias (principal); Z68.44 Body mass index [BMI] 60.0-69.9, adult; N93.9 Abnormal uterine and vaginal bleeding, unspecified; N85.9 Noninflammatory disorder of uterus, unspecified; F17.210 Nicotine dependence, cigarettes, uncomplicated; I10 Essential (primary) hypertension; E66.01 Morbid (severe) obesity due to excess calories
CPT/HCPCS: 12345; 36415; 36430; 85007; 85014; 85018; 85027; 86850; 86900; 86920; 86927; 96375; J1410; P9016; P9017

== ENCOUNTER → 2020-06-28 12:26 | Outpatient (BNVA) | payer MEDICAID, SELFPAY | PROVIDERS: Family Provider Family Medicine; PCP Nurse Practitioner Family; Visit Provider Obstetrics & Gynecology | DX: D64.89 Other specified anemias (principal) | CPT/HCPCS: 85027 ==

== ENCOUNTER → 2020-07-26 09:37 | Outpatient (BNVA) | payer MEDICAID, SELFPAY | PROVIDERS: Family Provider Family Medicine; PCP Family Medicine; Visit Provider Anesthesiology | DX: G89.29 Other chronic pain (principal); M54.42 Lumbago with sciatica, left side; M50.30 Other cervical disc degeneration, unspecified cervical region; M54.9 Dorsalgia, unspecified; M17.0 Bilateral primary osteoarthritis of knee; F17.210 Nicotine dependence, cigarettes, uncomplicated; Z79.891 Long term (current) use of opiate analgesic | CPT/HCPCS: 87635; 99214 ==

== ENCOUNTER 2020-08-01 10:21 | Inpatient (IN) | payer MEDICAID, SELFPAY ==
[2020-07-28 12:04] VITALS: BMI 63.7
--- NOTE | 2020-07-28 12:33 | P.ANESASSM_ITS ---
Pre-Anesthetic Assessment Pre-Anesthetic Assessment: Height/Weight: Height 1.83 m Weight 213.188 kg Preop Diagnosis: Abnormal uterine bleeding. Proposed Procedure: Operation Date: 08/01/20 07:00 Proposed Procedures p Total Abdominal Hysterectomy 72461 N93.9 D64.9(Not Applicable) - Paul Deshpande MD s Salpingo Oophorectomy (Open)(Not Applicable) - Paul Deshpande MD Familial anesthetic complications: NOne Social: Social History: Tobacco and No alcohol Exam: Pre-Anes Outpt Exam: alert, oriented x 3, clear to auscultation bilaterally and regular rate & rhythm Airway: Cervical ROM: WNL MP: 1 Dentition: Other (missing) Additional comments: large neck circumference Pulmonary: Pulmonary: Sleep apnea GI: GI: GERD Comments: hx bariatic surgery Metabolic: Metabolic: Morbid obesity Musc/skel: Musc/skel: Lower Back Pain Comments: lymphedema in legs Anesthetic Plan: ASA status: 2 Anesthesia: General Risk of > 500 ml blood loss (7ml/kg in children): No PFSH Anesthesia PFSH: Medical History (Updated 07/28/20 @ 10:37 by Paul Deshpande MD) Arthralgia of cervical spine Current every day smoker Degeneration of intervertebral disc of cervical 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 Has been on and off treatment for many years. Surgical History H/O bariatric surgery (09/14/12) Laparoscopic band. H/O section 12/21/1991, 12/14/1993, 04/17/1995. History of bariatric surgery (~2016) Laparoscopic gastric sleeve. History of D&C (~09/2003) History of laparoscopic cholecystectomy (~1993) History of laparoscopy (09/21/18) Dx: Small bowel obstruction. Lysis of adhesions. Performed by Dr. Yee at [facility]. History of left salpingo-oophorectomy (01/15/06) Laparotomy. Performed by Dr. Lovelace at [facility]. 10 cm left adnexal cystic mass. Status post hysteroscopy (~05/09/20) Hysteroscopy with dilation and curettage with Dr. Paul Deshpande at [facility] Family History Father Diabetes Hypertension Social History Smoking and tobacco status: current every day smoker cigarettes Packs smoked per day: 1 Alcohol intake: never Other details last substance use: Denies drug use. Female Reproductive History: Date of last menstrual period: 07/28/20 Data Anesthesia Cardiac Studies: No Data to Display
[2020-07-28 13:01] LABS: Basophils % 0.5 %; Eosinophils # 0.2 10^3/uL (0.0-0.8); Eosinophils % 2.9 %; Hematocrit 30.9 % (37.0-47.0); Hemoglobin 8.3 g/dL (11.5-15.3); Lymphocytes # 1.6 10^3/uL (0.8-4.8); Lymphocytes % 21.3 %; Mean Corpuscular HGB Conc 26.9 g/dL (30.0-36.0); Mean Corpuscular Hemoglobin 20.8 pg (28.0-34.0); Mean Corpuscular Volume 77.3 fL (81-99); Mean Platelet Volume 9.8 fL (7.4-10.4); Monocytes # 0.6 10^3/uL (0.2-0.9); Monocytes % 8.5 %; Neutrophils # 4.85 10^3/uL (1.8-7.7); Neutrophils % 66.4 %; Nucleated Red Blood Cells % 0 %; Platelet Count 317 10^3/cmm (130-400); Red Cell Distribution Width 18.9 % (12.1-15.1); White Blood Count 7.3 10^3/uL (4.0-10.0)
[2020-08-01] VITALS (39 sets, daily range): BP systolic 132–184; BP diastolic 52–89; PULSE 61–102; RESP 12–24; TEMP 36.7–37.1; O2SAT 89–99; BMI 63.7
[2020-08-01] MEDS: sodium chloride 0.9% 1,000 ML 30 ML IV (06:31)
[2020-08-01] MEDS: ketorolac 30 mg/mL INJ IVP ×3 (06:31→20:14)
[2020-08-01] MEDS: lidocaine 1% INJ 20 mL INTRADERMA (06:32)
--- NOTE | 2020-08-01 06:43 | W.PM.OPSUD ---
Surgery/Procedure H&P Update DATE OF PROCEDURE: August 01, 2020 DATE H&P PERFORMED: 07/28/20 H&P UPDATE INFORMATION: I have reviewed H&P completed within last 30 days, I have examined patient prior to procedure, No changes to prior documentation and H&P is in [facility] EMR on date indicated PREOP DIAGNOSIS: Dysfunctional uterine bleeding PLANNED PROCEDURE: Operation Date: 08/01/20 07:00 Proposed Procedures p Total Abdominal Hysterectomy 05185 N93.9 D64.9(Not Applicable) - Paul Deshpande MD s Salpingo Oophorectomy (Open)(Not Applicable) - Paul Deshpande MD
[2020-08-01] MEDS: midazolam 1 mg/mL INJ 2 mL 2 MG IVP (06:51)
[2020-08-01 06:57] LABS: OR HCG Qualitative Urine Negative (Negative)
--- NOTE | 2020-08-01 06:57 | P.ANESUD_ITS ---
Pre-Anesthetic Update Pre-Anesthetic Assessment: Date of Surgery/Procedure: 08/01/20 Preop Annetta gnosis: Dysfunctional uterine bleeding Proposed Procedure: Operation Date: 08/01/20 07:00 Proposed Procedures p Total Abdominal Hysterectomy 41505 N93.9 D64.9(Not Applicable) - Paul Deshpande MD s Salpingo Oophorectomy (Open)(Not Applicable) - Paul Deshpande MD Any changes to Pre-Anesthetic Assessment?: No Last Intake: Intake Last Liquid Date 07/31/20 Last Liquid Time 23:30 Last Solid Date 07/31/20 Last Solid Time 19:00 Vitals: Temperature 98.6 F 08/01/20 06:03 Pulse Rate 95 08/01/20 06:03 Respiratory Rate 18 08/01/20 06:03 Blood Pressure 168/89 08/01/20 06:03 Blood Pressure Dottie n 115 08/01/20 06:03 Pulse Oximetry 96 08/01/20 06:03 Oxygen Delivery Me thod 08/01/20 06:03 Exam: Pre-Anes Outpt Exam: alert, oriented x 3, clear to auscultation bilaterally and regular rate & rhythm Cardiac Studies: No Data to Display
[2020-08-01] MEDS: enoxaparin 30 mg/0.3 mL Syringe SUBCUT (06:58)
--- NOTE | 2020-08-01 07:00 | PC.NURSE ---
Dr Jeramy kernsed drug interaction with Cefazolin as pre-op antibiotics.
[2020-08-01] MEDS: ceFAZolin 3,000 MG in sodium chloride 0.9% (100 ml) 100 ML 200 MG IV (07:08)
--- NOTE | 2020-08-01 07:55 | SUR.OPER ---
yeast noted in all skin folds, cut on left foot.
--- NOTE | 2020-08-01 10:29 | P.OP_ITS ---
Operative Report Date of procedure: August 01, 2020 Pre-op Diagnosis: Dysfunctional uterine bleeding, Iron deficiency anemia due to chronic blood loss, Morbid obesity Post-op Diagnosis: Dysfunctional uterine bleeding, Iron deficiency anemia due to chronic blood loss, Morbid obesity Procedure Done: Total abdominal hysterectomy with right salpingo-oophorectomy Specimens removed/disposition: Uterus, cervix, right tube and ovary Surgeon: Paul Deshpande Assistant Director Of Plant Operations: Rebecca Solomon Anesthesia: General Estimated blood loss (mL): 1,000 IV fluids (mL): 1,600 Urine output (mL): 50 Complications: None Findings: Filmy bowel adhesions to the posterior uterus, right tube and ovary, and left broad ligament. Brief History: Patient is a 45-year-old female 3, para 3-0-0-2 who had presented to the office as a referral from ANDRES Lopez in April 2020 due to abnormal uterine bleeding. She had a history of polycystic ovarian syndrome. She had been treated with Provera previously in 2014 due to irregular bleeding. In April she reported that her bleeding had completely stopped for a while following weight loss. However she gained back approximately 100 pounds and started bleeding again. She reported no pattern to the bleeding episodes. Bleeding could last for a few days to weeks at a time. It ranged from spotting to gushes of blood that would soak through to her clothing. She typically has to change overnight pads every couple of hours with the heaviest bleeding is present. She was reporting clots the size of her fist at times. She had an ultrasound performed which showed an endometrial stripe of 3.5 cm with irregularity in its appearance. No masses were identified. She had a D&C performed in May with changes suspicious for a polyp. No cancer or precancerous changes noted in the lining. Following the D&C she continued to bleed heavily. She was started on daily suppression with Provera which was increased up to 30 mg/day. This decreased her bleeding to light spotting to no bleeding at all. During this process she had been found to be significantly anemic and had to be transfused in June due to anemia. She is still anemic at this time. She is presenting for hysterectomy. Procedure: Due to the patient's weight and difficulty with the abdominal hysterectomy, Dr. Nevarez was present and assisted with the entire case. Patient was taken to the operating room where general anesthesia was obtained. She was prepped and draped in usual sterile fashion dorsal supine position. Due to the degree of obesity and the size of her legs, SCDs were not able to be used. Foot pumps were placed and patient received subcutaneous Lovenox before surgery. She also received 3 g of Kefzol preoperatively. A vertical incision was made through the abdominal wall, starting above the navel and extending around to the left side before extending into the lower abdomen. This was carried down to the fascia with electrocautery. Fascia was incised in the midline and then extended superiorly and inferiorly. Uterus was identified and patient was found to have adhesions of the bowel to the posterior surface of the uterus, to the right tube and ovary, and to the left broad ligament area. The left tube and ovary were surgically absent. The bowel was partially packed out of the way with a Bookwalter retractor being used for retraction purposes. The adhesions were taken down bluntly and sharply until the uterus, broad ligament, and right tube and ovary were freed. The bowel was then repacked for exposure purposes. The corner of the uterus was grasped with Kocker clamps. The right round ligament was doubly clamped, cut, and suture ligated with 0 Vicryl suture. The broad ligament was then opened inferiorly and carried over to the anterior uterus. The bladder was noted to be adherent high on the uterus anteriorly. It was sharply taken down until the bladder was completely freed from the anterior uterus. A window was made in the posterior leaf of the broad ligament below the ovarian vessels. Straight clamps were placed across the utero-ovarian ligament and tube. The pedicle was cut and then tied with the near and far stitch of 0 Vicryl suture. Uterine vessels were further skeletonized. Curved clamp was placed at the level of the internal loss. The round ligament on the left side was identified and doubly clamped. It was cut and then suture ligated with 0 V icryl suture. Straight clamps were then placed across the left corner of the uterus. Pedicles were then cut and tied with 0 Vicryl suture. Curved clamp was placed at the level of the internal loss. The pedicles were cut and then tied bilaterally with 0 Vicryl suture. Bladder was continued to be dissected down off of the lower uterine segment. Straight clamps were placed along the broad ligament bilaterally. These were then cut and tied with 0 Vicryl suture. Multiple bites were taken along both sides until the top of the vagina was reached. Curved clamps were placed under the cervix and the cervix amputated from the vagina using Jayna scissors. Care was taken not to damage underlying structures including ureters and bladder in the process. The corner of the vaginal cuff were secured with 0 Vicryl suture in a Bertha fashion. The remaining midportion of the vaginal cuff was oversewn with 0 Vicryl suture in an interrupted [id number] fashion. Areas of bleeding were controlled with electrocautery. The right tube and ovary was grasped with a Tulia clamp. Clamp was placed across the infundibulopelvic ligament. It was then cut and tied with a near and far stitch of 0 Vicryl suture. Was tied with a free tie of 0 Vicryl suture. Pelvis was thoroughly irrigated and inspected. Areas of bleeding were again brought under control with electrocautery. She did have one pedicle on the left side that was bleeding. It was oversewn with a [id number]-[id number] stitch of 0 Vicryl suture. Patient had had oozing along the area of the bladder dissection from the uterus. This had been controlled with direct pressure and then electrocautery at specific sites as needed. However, due to the oozing, Surgicel was placed over the area as well. The packing and retractors were removed. The fascia, rectus muscles, and peritoneum were reapproximated using looped 0 PDS suture in a running fashion. The subcutaneous layer was irrigated and brought hemostasis with electrocautery. It was reapproximated with a running stitch of 2-0 Vicryl suture and then interrupted stitches of 3 oh plain suture just below the skin for reapproximation purposes. Skin was reapproximated with skin ciera. Drains: Brumfield catheter Postoperative status: Patient was transferred recovery room in satisfactory condition. Due to degree of blood loss and her starting hemoglobin of 8.3, patient to be transfused with 2 units of PRBCs, starting in the recovery room.
--- NOTE | 2020-08-01 10:35 | PM.PACU ---
PACU note PACU note: VSS, good respiratory effort Post-Anesthesia Exam: awake Disposition: admitted
[2020-08-01] MEDS: fentaNYL 50 mcg/mL INJ 2mL IVP (10:53)
[2020-08-01] MEDS: morphine 4 mg/mL SDV 1 mL 2 MG IVP (11:14)
[2020-08-01] MEDS: ondansetron 2 mg/ML SDV 2 mL 4 MG IVP (11:18)
[2020-08-01] MEDS: metoclopramide 5 mg/mL SDV 2 mL 10 MG IVP (11:20)
[2020-08-01] MEDS: morphine 4 mg/mL SDV 1 mL IVP ×3 (12:15→22:50)
--- NOTE | 2020-08-01 13:03 | SUR.PHASEI ---
1135- TRANSFERRED PATIENT FROM PACU TO OB VIA [facility]. RESP ARE EVEN AND NONLABORED. SAT 98% WITH 2L/NC. SHE IS AWAKE AND ALERT, RESTING WITH EYES CLOSED. DRESSING TO ABDOMEN IS DRY AND INTACT. PACHECO CATHETER IS PATENT AND DRAINING CLEAR YELLOW URINE. BLOOD INFUSING TO RIGHT FOREARM IV, STARTED ON PUMP UPON ARRIVAL TO OB ROOM. PATIENT REPORTS PAIN 10/10 FOLLOWING TRANSFER FROM [facility] TO BED. NURSE GUNJAN RN AWARE. NO REPORT OF NAUSEA.
[2020-08-01] MEDS: dextrose 5%-lactated ringers 1,000 ML 125 ML IV (15:34)
[2020-08-01] MEDS: heparin 5,000 unit/mL INJ 1 mL 5000 UNIT SUBCUT ×2 (15:39→22:38)
[2020-08-01] MEDS: oxyCODONE-APAP 5-325 mg Tablet PO ×2 (17:05→23:23)
[2020-08-01 18:28] LABS: Hematocrit 31.2 % (37.0-47.0); Hemoglobin 8.9 g/dL (11.5-15.3); Mean Corpuscular HGB Conc 28.5 g/dL (30.0-36.0); Mean Corpuscular Hemoglobin 21.7 pg (28.0-34.0); Mean Corpuscular Volume 76.1 fL (81-99); Mean Platelet Volume 10.2 fL (7.4-10.4); Platelet Count 328 10^3/cmm (130-400); Red Cell Distribution Width 19.2 % (12.1-15.1); White Blood Count 15.3 10^3/uL (4.0-10.0)
[2020-08-01] MEDS: trazodone 50 mg Tablet PO (20:14)
[2020-08-01] MEDS: nystatin powder 15 gm Btl 1 APPLIC TOPICAL (20:15)
--- NOTE | 2020-08-01 21:08 | PC.NURSE ---
PATIENT REPORT CALLED BY LABORATORY MANAGER TO JAKE NURSE ON MED SURG UNIT AT 2034
--- NOTE | 2020-08-01 21:13 | PC.NURSE ---
PATIENT TRANSFERRED VIA BED TO MED SURG UNIT AT 2054
[2020-08-02] VITALS (15 sets, daily range): BP systolic 114–179; BP diastolic 59–72; PULSE 53–85; RESP 15–24; TEMP 36.7–37.1; O2SAT 93–99
[2020-08-02] MEDS: dextrose 5%-lactated ringers 1,000 ML 125 ML IV ×3 (00:18→10:55)
[2020-08-02] MEDS: ketorolac 30 mg/mL INJ IVP ×2 (01:52→06:33)
[2020-08-02] MEDS: oxyCODONE-APAP 5-325 mg Tablet PO ×2 (06:43→15:44)
[2020-08-02] MEDS: heparin 5,000 unit/mL INJ 1 mL 5000 UNIT SUBCUT ×3 (08:50→22:04)
[2020-08-02] MEDS: nystatin powder 15 gm Btl 1 APPLIC TOPICAL ×3 (08:51→22:05)
--- NOTE | 2020-08-02 09:10 | PM.PN ---
Subjective Subjective: Interval history: Patient reports feeling better today. States pain has been well controlled with medications. Denies lightheadedness with sitting up in bed, but states has not been out of bed. Denies shortness of breath or chest pains. States has started passing flatus. Reports feels hungry. Vitals/I&O/Wt Last Vital Signs Temp 98.4 F 08/02/20 07:41 Pulse 70 08/02/20 07:41 Resp 16 08/02/20 07:41 BP 116/68 08/02/20 07:41 Pulse Ox 95 08/02/20 07:41 08/01/20 08/02/20 08/02/20 22:59 06:59 14:59 Intake Total 350 / 2400 1000 / 3400 1000 / 1000 Output Total 400 / 1700 300 / 2000 Balance -50 / 700 700 / 1400 1000 / 1000 Weight last 48 hrs Weight 470 lb Physical Exam Const: COMMON NORMALS: no acute distress, average body habitus, alert and well nourished GENERAL APPEARANCE: well developed ORIENTATION/CONSCIOUSNESS: Yes oriented to person, Yes oriented to place and Yes oriented to time Resp: COMMON NORMALS: normal respiratory effort and clear to auscultation bilaterally AUSCULTATION: clear to auscultation bilaterally Cardio: COMMON NORMALS: regular rate, regular rhythm, No gallops present (Cardio), No murmurs present (Cardio) and No rub (Cardio) RATE: regular rate RHYTHM: regular rhythm GI: COMMON NORMALS: Soft to palpation, No hepatosplenomegaly present and no masses INSPECTION: Yes incision (Dressing dry) AUSCULTATION: Yes normoactive bowel sounds PALPATION: Yes Soft to palpation, Yes Tenderness to palpation present (GI) (Lower abdomen.), Yes No hepatosplenomegaly present and No Hernia present : EXTERNAL FEMALE EXAM: No Hernia present Extremity: COMMON NORMALS: no calf tenderness NARRATIVE EXTREMITY EXAM: Foot pumps and use. Neuro: SENSORIUM/ORIENTATION: Yes alert, Yes oriented to person, Yes oriented to place and Yes oriented to time Psych: COMMON NORMALS: normal affect MOOD & AFFECT: Yes euthymic mood Urinary Catheter Management^: Brumfield: Cath Placed During This Visit: yes Reason for Continuing Indwelling Catheter: Acute Urinary Retention or Obstruction Urinary Catheter Date of Insertion: 08/01/20 Urinary Catheter Time of Insertion: 07:25 Data : 08/01/20 17:50 A&P Assessment and plan (1) Dysfunctional uterine bleeding: Postoperative day 1, status post LYLE with RSO. Patient reporting doing well overall. Her pain per her report is been adequately controlled. Will switch to oral pain medications today since she is reporting passing flatus. Also advance to clear liquid diet this morning. Patient states she is not interested in solid food at this time. Patient to be up to the chair today and ambulate later this morning if possible. When ambulating well, can have Brumfield catheter removed. She has been receiving heparin and has foot pumps for DVT prophylaxis. Patient has been continued on her usual chronic pain treatment medications. Status: Acute (2) Anemia: Patient was anemic before surgery with the hemoglobin of 8.3. Due to her starting hemoglobin and having lost approximately 1000 mL blood during surgery, she was transferred used with 2 units of blood after surgery. 2-hour post transfusion hemoglobin was 8.9. Discussed with patient the results of her blood tests and my recommendation for at least 1 more unit of blood. Patient in agreement with this. Transfuse with 1 unit PRBC at this time with the possible need for second unit. Status: Acute Qualifiers: Anemia type: iron deficiency Iron deficiency anemia type: chronic blood loss Qualified Code(s): D50.0 - Iron deficiency anemia secondary to blood loss (chronic) (3) Skin yeast infection: Patient has skin yeast infection under the folds of her belly and under the breasts. Nystatin powder has been prescribed. Status: Acute Attestations Medical Necessity Statement*: Patient is day 1 after abdominal hysterectomy. Increasing activities today. Patient also receiving blood transfusion today. Starting clear liquids today and switching to oral pain medication. 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
--- NOTE | 2020-08-02 09:47 | PC.NURSE ---
Rounded with Dr Deshpande this morning. vd order for 1 unit blood today, ambulate patient, remove dressing from abd after shower and clear liquid diet.
[2020-08-02] MEDS: sodium chloride 0.9% (100 ml) 100 ML 50 ML (10:30)
--- NOTE | 2020-08-02 11:28 | ANE.PACU2 ---
Inpatient post-anesthesia follow up: Airway intact: Yes Vital signs: Temperature 98.2 F Pulse Rate 61 Respiratory Rate 18 Blood Pressure 126/64 Pulse Oximetry 95 Oxygen Delivery Me thod Room Air Oxygen Flow Rate 2 Fraction of Inspir ed Oxygen 30 Hydration adequate: Yes (gett) Nausea and vomiting: No Pain level: 1 Mental status: Baseline Additional Comments: getting 3rd unit of prbcs
--- NOTE | 2020-08-02 12:21 | PC.RESP ---
SMOKING CESSATION INFORMATION SENT TO PATIENT.
--- NOTE | 2020-08-02 14:37 | PC.NURSE ---
Dressing removed of abd. incision GUANACO
--- NOTE | 2020-08-02 15:41 | PC.NURSE ---
removed joiner catheter.
--- NOTE | 2020-08-02 18:03 | PC.NURSE ---
Per Dr Deshpande patient can be PIID with good oral intake
[2020-08-02 18:49] LABS: Hemoglobin 9.4 g/dL (11.5-15.3); Mean Corpuscular HGB Conc 27.6 g/dL (30.0-36.0); Mean Corpuscular Hemoglobin 21.6 pg (28.0-34.0); Mean Platelet Volume 9.7 fL (7.4-10.4); Platelet Count 311 10^3/cmm (130-400); Red Blood Count 4.36 10^6/uL (4.1-5.3); Red Cell Distribution Width 19.5 % (12.1-15.1); White Blood Count 11.1 10^3/uL (4.0-10.0)
[2020-08-02] MEDS: trazodone 50 mg Tablet PO (22:10)
[2020-08-03] VITALS: BP 159/84; PULSE 77; RESP 20; TEMP 36.7; O2SAT 95
[2020-08-03 00:42] VITALS: RESP 16
[2020-08-03] MEDS: oxyCODONE-APAP 5-325 mg Tablet PO (00:42)
[2020-08-03] MEDS: ondansetron 2 mg/ML SDV 2 mL 4 MG IVP (00:47)
[2020-08-03 04:00] VITALS: BP 168/75; PULSE 64; RESP 18; TEMP 36.9; O2SAT 92
[2020-08-03] MEDS: HYDROcodone-acetaminophen 5-325 mg Tablet PO (07:36)
[2020-08-03] MEDS: heparin 5,000 unit/mL INJ 1 mL 5000 UNIT SUBCUT (07:36)
[2020-08-03] MEDS: nystatin powder 15 gm Btl 1 APPLIC TOPICAL (07:36)
[2020-08-03 08:00] VITALS: BP 154/91; PULSE 62; RESP 18; TEMP 36.6; O2SAT 96
--- NOTE | 2020-08-03 08:04 | PM.DCS ---
Discharge Providers Date of Admission: 08/01/20 10:21 Date of Discharge: August 03, 2020 Attending Provider at Admission: Paul Deshpande MD Attending Provider at Discharge: Paul Deshpande MD Primary Care Provider: Susannah Cruz MD Diagnoses at Discharge Discharge Diagnosis (1) Dysfunctional uterine bleeding: Status: Acute (2) Anemia: Status: Acute Problem details: Acute blood loss anemia in setting of chronic blood loss anemia. Qualifiers: Anemia type: iron deficiency Iron deficiency anemia type: chronic blood loss Qualified Code(s): D50.0 - Iron deficiency anemia secondary to blood loss (chronic) (3) Skin yeast infection: Status: Acute Reason for Visit Reason for Visit: abnormal uterine bleeding Hospital Course Hospital Course: Patient is a 45-year-old 3 para 3-0-0-2 who had presented to the office as a referral from ANDRES Lopez, in April 2020 due to abnormal uterine bleeding. Patient had a history of polycystic ovarian syndrome which had been previously treated with Provera. However, she had gone off of the medication and was having irregular bleeding. She reports no pattern to the bleeding. Bleeding could last anywhere from a few days to several weeks and ranged from spotting to gushes of blood that soaked through to her clothing. During her evaluation she was found to have significant anemia and at 1 point had bled to the point of being admitted to the hospital and transfused. During her evaluation she had an ultrasound which showed an irregular, thickened endometrial stripe. She had a D&C performed which was negative for cancer or precancerous changes with findings suggestive of polyp. She continued to have bleeding following this and was treated with high-dose continuous progesterone which significantly slowed but did not completely stop the bleeding. As a result decision was made to proceed to a hysterectomy. Of note, her history is significant for being significantly morbidly obese. She is also on chronic pain medications. Patient had a total abdominal hysterectomy with right salpingo-oophorectomy performed on 08/01/2020. She was admitted to the hospital afterwards for postoperative care. At her preoperative lab work, she was noted to have a hemoglobin of 8.3. During surgery she had significant blood loss. She was transfused with 3 units of PRBCs with 2 units the day of surgery and 1 unit the next day. On admission for surgery, she was also found to have yeast within the folds of her abdomen and under her breasts. She was treated with nystatin powder following the surgery. She had also been started on heparin for DVT prophylaxis. Postoperative Day 1 Patient was reporting feeling better that morning. She was reporting that her pain was being adequately controlled. She denied lightheadedness with sitting up in bed. She denied shortness of breath or chest pains. She reported that she had started passing flatus that morning. She had been tolerating ice chips and sips without nausea or vomiting. She was afebrile with stable vital signs. Activities were increased through the day. She was started on a clear liquid diet. She was also switched to oral pain medication. Brumfield catheter was discontinued later in the day. Blood count that evening revealed an H&H of 9.4/34.0. This was after a total of 3 units of PRBCs since surgery. Postoperative Day 2 Patient reported that she was continuing to do well. She reported that her pain was adequately controlled on oral medications. She was ambulating slowly without lightheadedness or dizziness. She denied shortness of breath or chest pains. Diet had been advanced that morning and she was tolerating it without nausea or vomiting. She denied problems with urination. Physical Exam: See below Plan Patient did well through the morning and was discharged home later in the day. She was to continue Lovenox shots at home for DVT prophylaxis due to limited mobility and her weight. She was to continue the nystatin powder at home as well. She had also been instructed to continue oral iron at home. Discharge instructions were discussed with her. She was to follow-up in the office in 1 week for staple removal. She was sent home on Percocet tablets. Physical Exam Const: COMMON NORMALS: no acute distress, alert and well nourished GENERAL APPEARANCE: well developed NUTRITIONAL APPEARANCE: obese morbidly obese ORIENTATION/CONSCIOUSNESS: Yes oriented to person, Yes oriented to place and Yes oriented to time Resp: COMMON NORMALS: normal respiratory effort and clear to auscultation bilaterally AUSCULTATION: clear to auscultation bilaterally Cardio: COMMON NORMALS: regular rate, regular rhythm, No gallops present (Cardio), No murmurs present (Cardio) and No rub (Cardio) RATE: regular rate RHYTHM: regular rhythm GI: COMMON NORMALS: Soft to palpation, No hepatosplenomegaly present and no masses INSPECTION: Yes incision (Lower abdominal incision well approximated with ciera present.) and Yes central obesity AUSCULTATION: Yes normoactive bowel sounds PALPATION: Yes Soft to palpation, Yes Tenderness to palpation present (GI) (Tender lower abdomen.), Yes No hepatosplenomegaly present and No Hernia present : EXTERNAL FEMALE EXAM: No Hernia present Extremity: COMMON NORMALS: no calf tenderness NARRATIVE EXTREMITY EXAM: Extreme lymphedema of the legs. Neuro: SENSORIUM/ORIENTATION: Yes alert, Yes oriented to person, Yes oriented to place and Yes oriented to time Psych: COMMON NORMALS: normal affect MOOD & AFFECT: Yes euthymic mood Skin: NARRATIVE SKIN EXAM: Erythema consistent with skin yeast under the folds of the abdomen and breast. Urinary Catheter Management^: Brumfield: Cath Placed During This Visit: yes, but has since been removed by the nurse Reason for Continuing Indwelling Catheter: Decision to DC Catheter Urinary Catheter Date of Insertion: 08/01/20 Urinary Catheter Time of Insertion: 07:25 Date Urinary Catheter Removed: 08/02/20 Time Urinary Catheter Discontinued: 15:40 Discharge Data Data Completed and Pending: Pending at discharge Category Date Time Status Pathology: Surgic al [PTH] Routine Pth 08/01/20 10:16 Received Labs from last 24 hours 08/02/20 08/01/20 18:23 06:55 WBC 11.1 H RBC 4.36 Hgb 9.4 L Hct 34.0 L MCV 78.0 L MCH 21.6 L MCHC 27.6 L RDW 19.5 H Plt Count 311 MPV 9.7 Blood Type O Positive Rho(D) Type Positive Antibody Screen Negative Crossmatch See Detail Vitals: Last Vital Signs Temp 98.4 F 08/03/20 04:00 Pulse 64 08/03/20 04:00 Resp 18 08/03/20 04:00 BP 168/75 08/03/20 04:00 Pulse Ox 92 08/03/20 04:00 Discharge Plan Discharge Patient Disposition: Home Condition: Stable Prescriptions: New ibuprofen 800 mg Tablet 800 mg PO TID PRN (Reason: pain) Qty: 40 RF: 0 Nystop 100,000 unit/gram Powder 1 applic topical TID Qty: 60 RF: 1 oxycodone-acetaminophen 5-325 mg Tablet 1 - 2 tab PO Q6H PRN (Reason: Moderate To Severe Pain) Qty: 40 RF: 0 Lovenox 40 mg/0.4 mL syringe 40 mg SUBCUT Q12H 7 Days Qty: 5.6 RF: 0 Continued multivitamin Tablet 1 tab PO BEDTIME RF: 0 fexofenadine [Rosa Allergy] 180 mg tablet 180 mg PO DAILY PRN (Reason: Allergy Symptoms) RF: 0 tramadol 50 mg tablet 50 mg PO TID PRN (Reason: pain) 30 Days Qty: 90 RF: 1 pregabalin [Lyrica] 50 mg capsule 50 mg PO TID PRN (Reason: pain) Qty: 90 RF: 1 tizanidine 4 mg capsule 4 mg PO TID PRN (Reason: muscle spasticity) Qty: 90 RF: 1 trazodone 50 mg tablet 50 mg PO DAILY RF: 0 Held hydrocodone-acetaminophen 10-325 mg tablet 1 tab PO Q6H PRN (Reason: pain) 30 Days Qty: 120 RF: 0 Hold Instructions: Resume on 08/10/20. Until no longer taking the Percocet Discontinued medroxyprogesterone [Provera] 10 mg tablet 30 mg PO DAILY Qty: 33 RF: 0 Discharge Orders: Discharge Order (Routine); Ordered 08/03/20 Ordered By: Paul Deshpande Referrals: Paul Deshpande MD [Physician] - 08/09/20 1:30 pm (Staple removal) Discharge Diet: Regular Discharge Activity: Limit activity as instructed Patient Instructions: Hydrocodone/Acetaminophen (By mouth), Ibuprofen (By mouth), Nystatin (On the skin), Enoxaparin (Injection), Dysfunctional Uterine Bleeding (DC), How to Stop Smoking (DC), Polycystic Ovarian Syndrome (DC), Anemia (DC), OB Abdominal Surgery - [facility] Activity Restrictions/Additional Instructions: Use [id number]-[id number] stool softeners Discharge Date/Time: 08/03/20 11:42 Discharge Attestations Time Spent in Discharge Care*: less than 30 min Quality Metrics Clinical Quality Measures During this hospital stay, did patient experience: None Coding Level of Care Code Acute Rotor Assembler for g Fwd Exam Detailed Diagnoses Dysfunctional uterine bleeding N93.8 Anemia D50.0 Anemia type: iron deficiency Iron deficiency anemia type: chronic blood loss Skin yeast infection B37.2
--- NOTE | 2020-08-03 11:13 | PC.NURSE ---
Discharge note Patient discharge instructions given per physician orders. New meds with side effects taught. Patient verbalized understanding. Iv removed with catheter intact. Pressure dressing applied. Patient tolerated well.
[2020-08-03 11:42] VITALS: BP 154/91; PULSE 62; RESP 18; TEMP 36.6; O2SAT 96
== END 2020-08-03 11:42 | disposition home or self-care (01) | DRG 742 ==
LOC: MEDSURG 08-02 05:24 → OBGYN 08-02 05:24
PROVIDERS: Admitting Provider Obstetrics & Gynecology; PCP Family Medicine; Visit Provider Obstetrics & Gynecology
PROC: 0UT90ZZ Resection of Uterus, Open Approach (ICD-10-PCS; CPT 58150; principal; 2020-08-01 07:00)
PROC: 0UT90ZZ Resection of Uterus, Open Approach (ICD-10-PCS; CPT 58720; 2020-08-01 07:00)
DX: N93.8 Other specified abnormal uterine and vaginal bleeding (principal); Z68.44 Body mass index [BMI] 60.0-69.9, adult; E28.2 Polycystic ovarian syndrome; M50.30 Other cervical disc degeneration, unspecified cervical region; F17.210 Nicotine dependence, cigarettes, uncomplicated; I10 Essential (primary) hypertension; E66.01 Morbid (severe) obesity due to excess calories; M17.0 Bilateral primary osteoarthritis of knee; Z98.84 Bariatric surgery status; D50.0 Iron deficiency anemia secondary to blood loss (chronic); B37.2 Candidiasis of skin and nail
CPT/HCPCS: 12345; 36415; 36430; 51702; 84703; 85025; 85027; 86850; 86900; 86920; 88307; 94660; 96372; 96374; 96375; J0131; J0330; J0690; J1100; J1644; J1650; J1885; J2250; J2270; J2405; J2704; J2710; J2765; J3010; J3490; J7030; P9016

== ENCOUNTER → 2020-08-09 13:55 | Outpatient (BNVA) | payer MEDICAID, SELFPAY | PROVIDERS: PCP Family Medicine; Visit Provider Obstetrics & Gynecology | DX: R30.0 Dysuria (principal) | CPT/HCPCS: 80053; 81000 ==

== ENCOUNTER → 2020-09-05 11:01 | Outpatient (BNVA) | payer MEDICAID, SELFPAY | PROVIDERS: Family Provider Family Medicine; PCP Family Medicine; Referring Provider Anesthesiology; Visit Provider Anesthesiology | DX: G89.29 Other chronic pain (principal); M54.42 Lumbago with sciatica, left side; M50.30 Other cervical disc degeneration, unspecified cervical region; M54.9 Dorsalgia, unspecified; F17.210 Nicotine dependence, cigarettes, uncomplicated; Z79.891 Long term (current) use of opiate analgesic | CPT/HCPCS: 99213; 99214 ==

== ENCOUNTER → 2020-11-02 13:17 | Outpatient (BNVA) | payer MEDICAID, SELFPAY | PROVIDERS: Family Provider Family Medicine; PCP Family Medicine; Visit Provider Anesthesiology | DX: G89.29 Other chronic pain (principal); M54.9 Dorsalgia, unspecified; M54.42 Lumbago with sciatica, left side; M17.0 Bilateral primary osteoarthritis of knee; M50.30 Other cervical disc degeneration, unspecified cervical region; M79.604 Pain in right leg; F17.210 Nicotine dependence, cigarettes, uncomplicated; Z79.891 Long term (current) use of opiate analgesic | CPT/HCPCS: 99214 ==

== ENCOUNTER → 2020-12-28 13:09 | Outpatient (BNVA) | payer MEDICAID, SELFPAY | PROVIDERS: Family Provider Family Medicine; PCP Family Medicine; Visit Provider Nurse Practitioner | DX: G89.29 Other chronic pain (principal); M50.30 Other cervical disc degeneration, unspecified cervical region; M50.90 Cervical disc disorder, unspecified, unspecified cervical region; M54.42 Lumbago with sciatica, left side; M54.9 Dorsalgia, unspecified; M17.0 Bilateral primary osteoarthritis of knee; F17.210 Nicotine dependence, cigarettes, uncomplicated; Z79.891 Long term (current) use of opiate analgesic | CPT/HCPCS: 99214 ==

== ENCOUNTER → 2021-02-27 12:39 | Outpatient (BNVA) | payer MEDICAID, SELFPAY | PROVIDERS: Family Provider Family Medicine; PCP Family Medicine; Visit Provider Nurse Practitioner | DX: G89.29 Other chronic pain (principal); M54.42 Lumbago with sciatica, left side; M50.30 Other cervical disc degeneration, unspecified cervical region; M54.9 Dorsalgia, unspecified; E66.01 Morbid (severe) obesity due to excess calories; M17.0 Bilateral primary osteoarthritis of knee; F17.210 Nicotine dependence, cigarettes, uncomplicated; Z79.891 Long term (current) use of opiate analgesic; Z71.6 Tobacco abuse counseling | CPT/HCPCS: 99214 ==

== ENCOUNTER → 2021-05-03 13:02 | Outpatient (BNVA) | payer MEDICAID, SELFPAY | PROVIDERS: Family Provider Family Medicine; PCP Family Medicine; Visit Provider Nurse Practitioner | DX: G89.29 Other chronic pain (principal); M54.42 Lumbago with sciatica, left side; M54.9 Dorsalgia, unspecified; M50.30 Other cervical disc degeneration, unspecified cervical region; M17.0 Bilateral primary osteoarthritis of knee; I89.0 Lymphedema, not elsewhere classified; E66.01 Morbid (severe) obesity due to excess calories; F17.210 Nicotine dependence, cigarettes, uncomplicated; Z79.891 Long term (current) use of opiate analgesic; Z71.6 Tobacco abuse counseling | CPT/HCPCS: 99213; 99214 ==

== ENCOUNTER → 2021-06-19 13:05 | Outpatient (BNVA) | payer MEDICAID, SELFPAY | PROVIDERS: Family Provider Family Medicine; PCP Family Medicine; Visit Provider Nurse Practitioner | DX: G89.29 Other chronic pain (principal); M54.42 Lumbago with sciatica, left side; M17.0 Bilateral primary osteoarthritis of knee; M50.30 Other cervical disc degeneration, unspecified cervical region; E66.01 Morbid (severe) obesity due to excess calories; I89.0 Lymphedema, not elsewhere classified; F17.210 Nicotine dependence, cigarettes, uncomplicated; Z79.891 Long term (current) use of opiate analgesic; Z68.44 Body mass index [BMI] 60.0-69.9, adult | CPT/HCPCS: 99214 ==

== ENCOUNTER → 2021-08-30 13:33 | Outpatient (BNVA) | payer MEDICAID, SELFPAY | PROVIDERS: Family Provider Family Medicine; PCP Family Medicine; Visit Provider Anesthesiology | DX: G89.29 Other chronic pain (principal); M54.50 Low back pain, unspecified; M54.2 Cervicalgia; M17.0 Bilateral primary osteoarthritis of knee; F17.200 Nicotine dependence, unspecified, uncomplicated; Z71.6 Tobacco abuse counseling; Z79.891 Long term (current) use of opiate analgesic | CPT/HCPCS: 99214 ==

== ENCOUNTER → 2021-10-31 13:01 | Outpatient (BNVA) | payer MEDICAID, SELFPAY | PROVIDERS: Family Provider Family Medicine; PCP Family Medicine; Visit Provider Anesthesiology | DX: G89.29 Other chronic pain (principal); M54.42 Lumbago with sciatica, left side; M50.30 Other cervical disc degeneration, unspecified cervical region; F17.200 Nicotine dependence, unspecified, uncomplicated; Z79.891 Long term (current) use of opiate analgesic | CPT/HCPCS: 99214 ==

== ENCOUNTER → 2021-11-20 12:22 | Outpatient (BNVA) | payer MEDICAID, SELFPAY | PROVIDERS: Family Provider Family Medicine; PCP Family Medicine; Visit Provider Nurse Practitioner Family | DX: Z20.822 Contact with and (suspected) exposure to COVID-19 (principal) | CPT/HCPCS: 87635 ==

== ENCOUNTER → 2022-01-10 09:56 | Outpatient (BNVA) | payer MEDICAID, SELFPAY | PROVIDERS: Family Provider Family Medicine; PCP Family Medicine; Visit Provider Nurse Practitioner Family | DX: L03.90 Cellulitis, unspecified (principal) | CPT/HCPCS: 80053; 85025 ==

== ENCOUNTER 2022-12-29 19:50 | Inpatient (IN) | payer MEDICAID, SELFPAY ==
--- NOTE | 2022-12-29 19:56 | XRR_ITS ---
PROCEDURE INFORMATION: Exam: XR Chest Exam date and time: 12/29/2022 8:03 PM Age: 47 years old Clinical indication: Shortness of breath; Additional info: Chest pain TECHNIQUE: Imaging protocol: Radiologic exam of the chest. Views: 1 view. COMPARISON: CR XR chest 1V [id number] 07/04/2019 9:02 PM FINDINGS: Lungs: Unremarkable. No consolidation. Pleural spaces: Unremarkable. No pleural effusion. No pneumothorax. Heart/Mediastinum: Cardiomegaly. Bones/joints: Unremarkable. XR/XR chest 1V portable [id number] IMPRESSION: Cardiomegaly, negative for infiltrate.
--- NOTE | 2022-12-29 19:57 | ECG_ITS ---
[facility] Test Date: 2022-12-29 Pat Name: Ziyad Felipe Department: Room: 250 Gender: Female Transportation Specialist: : [id number] Requested By: Edward Donaldson Order Number: [id number] Conor MD: Mike Juarez M.D. Measurements Intervals [place] Rate: 101 P: 111 VT: 169 QRS: 31 QRSD: 86 T: 76 QT: 326 QTc: 422 Interpretive Statements SINUS TACHYCARDIA NONSPECIFIC ST & T-WAVE ABNORMALITY Compared to ECG 09/16/2018 21:13:44 T-wave abnormality now present Sinus rhythm no longer present Electronically Signed On 12-30-2022 17:31:18 STAPLE SHEAR OPERATOR by Mike Juarez M.D. [id number]
[2022-12-29 20:00] VITALS: BP 197/108; PULSE 102; RESP 24; TEMP 36.6; O2SAT 92; BMI 70.2
--- NOTE | 2022-12-29 20:12 | ED_ITS ---
HPI - SOB/Dyspnea General: Chief Complaint: Shortness of Breath/Dyspnea Stated Complaint: sob, swelling,cp Time Seen by Provider: 12/29/22 19:56 History of Present Illness: HPI Narrative: 47-year-old female presents to the emergency department with chief complaint of acute on chronic bilateral lower extremity edema in the setting of severe lymphedema, shortness of breath, orthopnea, chest tightness with difficulty breathing. Patient reports that she was taking Lasix 40 mg daily but stopped a few months ago because her back was hurting and she thought her kidneys were being injured. She also states that even with the Lasix she was only urinating 3 times a day. She has severe social anxiety and so she has not left her home to come for medical care. Today she reports she had to take a nerve pill as well as a nausea pill because she was so nervous about coming here. She says she threw up on the way here. She does use a BiPAP at night for sleep apnea. Patient is an active smoker. She is on several medications for pain including Lyrica, tramadol, hydrocodone. Patient notes that near her left heel and on her left perez, she has some skin ulcerations. They are having a honey colored yellow discharge. She is worried that the swelling is so severe that she is going to start getting more of them. Associated symptoms: Deny abdominal pain, fever(s) or syncope Review of Systems General: Reports: 10 or more systems reviewed and unremarkable except in HPI and below Const: Denies: fever(s), chills or body aches Eyes: Denies: change in vision ENMT: Denies: throat pain Card: Denies: syncope Resp: Denies: productive cough GI: Denies: abdominal pain or diarrhea : Denies: flank pain, dysuria or urinary frequency Musc: Denies: neck pain or back pain Neuro: Denies: headache(s), weakness in extremities or lack of coordination PFSH ED PFSH: Medical History (Updated 12/29/22 @ 20:23 by Zachary Freitas MD) Arthralgia of cervical spine Current every day smoker Degeneration of intervertebral disc of cervical 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 Has been on and off treatment for many years. Surgical History H/O bariatric surgery (09/14/12) Laparoscopic band. H/O section 12/21/1991, 12/14/1993, 04/17/1995. History of bariatric surgery (~2016) Laparoscopic gastric sleeve. History of D&C (~09/2003) History of laparoscopic cholecystectomy (~1993) History of laparoscopy (09/21/18) Dx: Small bowel obstruction. Lysis of adhesions. [place] [facility] [place] of left salpingo-oophorectomy (01/15/06) Laparotomy. [place] [facility] 10 cm left adnexal cystic mass. S/P total abdominal hysterectomy (08/01/20) With RSO. [place] Deshpande [place] [facility] [place]. Path showed polyp with complex hyperplasia with atypia Status post hysteroscopy (~05/09/20) Hysteroscopy with dilation and curettage with Dr. Paul Deshpande at [facility] Family History Father Diabetes Hypertension Social History Smoking and tobacco status: never smoked Alcohol intake: never Other details last substance use: Denies drug use. Physical Exam Const: COMMON NORMALS: no limitations and alert EXAM LIMITATIONS: no altered mental status HENMT: COMMON NORMALS: normocephalic, atraumatic and external ears normal HEAD & SCALP: normocephalic and atraumatic EXTERNAL EAR: Yes external ears normal MOUTH: no muffled voice Eye: COMMON NORMALS: conjunctivae normal and no scleral icterus CONJUNCTIVA: Yes conjunctivae normal Neck/C-Spine: GENERAL: Yes normal visual inspection and Yes trachea midline Resp: OTHER: Patient is tachypneic with increased work of breathing. There is likely also an element of obesity alveolar hypoventilation syndrome. She has some crackles in the bases. No wheezes are appreciated. Cardio: COMMON NORMALS: regular rhythm RATE: tachycardic RHYTHM: regular rhythm GI: COMMON NORMALS: Soft to palpation and non-tender PALPATION: Yes Soft to palpation and No Guarding due to palpation present (GI) Extremity: OTHER: Patient has absolutely massive lower extremities due to her lymphedema. There is pitting edema going all the way up to her thighs. The left lower leg near the perez and just above the heel does have superficial skin ulcerations with a yellowish transudative appearing discharge. There is no obvious cellulitis. Neuro: COMMON NORMALS: no focal motor deficits SENSORIUM/ORIENTATION: Yes alert SPEECH: speech normal Psych: COMMON NORMALS: mental status grossly normal, Normal thought process present, cooperative, normal affect and speech normal SPEECH: Yes normal speech THOUGHT PROCESS: Normal thought process present Skin: COMMON NORMALS: turgor normal and no jaundice GENERAL SKIN EXAM: turgor normal OTHER: Stasis ulcers in the left lower extremity Course Vital Signs: Vital signs: Vital Signs Temperature 97.9 F 12/29/22 20:00 Pulse Rate 102 H 12/29/22 20:00 Respiratory Rate 24 H 12/29/22 20:00 Blood Pressure 197/108 12/29/22 20:00 Pulse Oximetry 93 12/29/22 20:35 Oxygen Delivery Me thod 12/29/22 20:35 Oxygen Flow Rate 2 12/29/22 20:35 MDM - SOB/Dyspnea Medical Decision Making 47-year-old female smoker with extreme obesity and a severe case of lower extremity lymphedema presents with progressive lower extremity swelling, orthopnea, dyspnea with minimal exertion and now a few weeks of feeling tight in the chest. She is noted to be hypertensive but is also very nervous. I suspect that this is multifactorial with some diastolic congestive heart failure, pulmonary artery hypertension, and we need to look for any signs of renal insufficiency, anemia. The patient has been noncompliant with her diuretics as she thought they were doing her more damage and not working. Her EKG shows a sinus tachycardia at a rate of 101 bpm, sinus rhythm, normal axis, some nonspecific ST changes without any concerning ST segment elevation, no ectopy Chest x-ray does not show any significant effusion, pulmonary vascular congestion. There is mild cardiomegaly. The hgb is mildly low. Trop neg BNP neg --however morbid obesity known to give false negatives. With 2mg of IV bumex she's only urinated once and wasn't much volume. Patient requesting admission. She is on 2L of oxygen to maintain 92%. Feel PE is unlikely bc of the chronicity of her symptoms. Discussed with Dr Nava for med surg admission. Lab Data 12/29/22 20:43 12/29/22 20:43 Labs/Radiology: Radiology Impressions Chest X-Ray 12/29/22 19:56 IMPRESSION: Cardiomegaly, negative for infiltrate. Laboratory Results WBC 10.1 10^3/uL (4.0-10.0) H 12/29/22 20:43 RBC 4.20 10^6/uL (4.1-5.3) 12/29/22 20:43 Hgb 11.3 g/dL (11.5-15.3) L 12/29/22 20:43 Hct 36.9 % (37.0-47.0) L 12/29/22 20:43 MCV 87.9 fl (81-99) 12/29/22 20:43 MCH 26.9 pg (28.0-34.0) L 12/29/22 20:43 MCHC 30.6 g/dL (30.0-36.0) 12/29/22 20:43 RDW 17.0 % (12.1-15.1) H 12/29/22 20:43 Plt Count 243 10^3/cmm (130-400) 12/29/22 20:43 MPV 9.7 fL (7.4-10.4) 12/29/22 20:43 Neut % (Auto) 72.9 % 12/29/22 20:43 Lymph % (Auto) 16.7 % 12/29/22 20:43 [place] % (Auto) 7.3 % 12/29/22 20:43 Eos % (Auto) 2.0 % 12/29/22 20:43 Baso % (Auto) 0.4 % 12/29/22 20:43 Neut # (Auto) 7.37 10^3/uL (1.8-7.7) 12/29/22 20:43 Lymph # (Auto) 1.7 10^3/uL (0.8-4.8) 12/29/22 20:43 [place] # (Auto) 0.7 10^3/uL (0.2-0.9) 12/29/22 20:43 Eos # (Auto) 0.2 10^3/uL (0.0-0.8) 12/29/22 20:43 Baso # (Auto) 0.0 10^3/uL (0.0-0.1) 12/29/22 20:43 Nucleated RBC % (auto) 0 % 12/29/22 20:43 Nucleated RBCs # 0.0 /100WBC 12/29/22 20:43 Sodium 137 mmol/L (136-145) 12/29/22 20:43 Potassium 4.1 mmol/L (3.5-5.1) 12/29/22 20:43 Chloride 102 mmol/L (98-107) 12/29/22 20:43 Carbon Dioxide 26 mmol/L (22-29) 12/29/22 20:43 Anion Gap 13.1 (5-19) 12/29/22 20:43 BUN 13 mg/dL (6-20) 12/29/22 20:43 Creatinine 0.6 mg/dL (0.5-0.9) 12/29/22 20:43 GFR Calculation 106.3 mL/min (90-130) 12/29/22 20:43 Glucose 157 mg/dL (65-115) H 12/29/22 20:43 Calculated Osmolality 287 mOsm/kg (285-295) 12/29/22 20:43 Calcium 9.4 mg/dL (8.5-10.5) 12/29/22 20:43 Magnesium 1.6 mg/dL (1.7-2.3) L 12/29/22 20:43 Total Bilirubin 0.3 mg/dL (0.15-1.2) 12/29/22 20:43 AST 23 U/L (0-32) 12/29/22 20:43 ALT 20 U/L (0-33) 12/29/22 20:43 Alkaline Phosphatase 67 U/L (35-105) 12/29/22 20:43 Troponin T Baseline 7 ng/L (0-10) 12/29/22 20:43 NT-Pro-B Natriuret Pep 111 pg/mL (0-125) 12/29/22 20:43 Total Protein 7.8 g/dL (6.6-8.7) 12/29/22 20:43 Albumin 3.5 g/dL (3.5-5.2) 12/29/22 20:43 Globulin 4.3 g/dL (1.3-4.6) 12/29/22 20:43 Discharge Plan Discharge Clinical Impression: Lymphedema associated with obesity, Lower limb ulcer, ankle, Smokes cigarettes, Accelerated hypertension Condition: Stable Prescriptions: No Action multivitamin Tablet 1 tab PO BEDTIME tramadol 50 mg tablet 50 mg PO TID PRN (Reason: pain) 30 Days Qty: 90 1RF Rx Instructions: fill on or after 11/04/21 and 12/04/21 sulfamethoxazole-trimethoprim [Bactrim DS] 800-160 mg tablet 1 tab PO BID 10 Days Qty: 20 0RF mupirocin 2 % ointment 1 applic topical TID Qty: 15 2RF hydrocodone-acetaminophen 10-325 mg tablet 1 tab PO QID 30 Days Qty: 120 0RF Rx Instructions: fill on or after 12/04/21 naloxone 4 mg/actuation spray,non-aerosol 4 mg intranasal Q2M Qty: 2 0RF Rx Instructions: spray 1 dose into ONE nostril; alternate nostrils w each dose until help arrives hydrocodone-acetaminophen 10-325 mg tablet 1 tab PO QID 4 Days Qty: 16 0RF prenat.vits,zayra,xpz-qvdb-ulchw Tablet 1 tab PO DAILY Qty: 30 11RF fexofenadine [Rosa Allergy] 180 mg tablet 180 mg PO DAILY PRN (Reason: Allergy Symptoms) Qty: 30 1RF pregabalin 50 mg capsule 50 mg PO TID Qty: 90 2RF promethazine-DM 6.25-15 mg/5 mL syrup 5 ml PO Q6H PRN (Reason: cough) Qty: 118 0RF Rx Instructions: Every 6-8 hours as needed tizanidine 4 mg tablet See Rx Instructions .ROUTE .COMPLEX Qty: 60 0RF Dose Instruction: TAKE 1 TABLET BY MOUTH THREE TIMES DAILY NEEDED FOR muscle spasticity Rx Instructions: TAKE 1 TABLET BY MOUTH THREE TIMES DAILY NEEDED FOR muscle spasticity trazodone 50 mg tablet See Rx Instructions .ROUTE .COMPLEX Qty: 30 0RF Dose Instruction: TAKE 1 TABLET BY MOUTH EVERY DAY Rx Instructions: TAKE 1 TABLET BY MOUTH EVERY DAY budesonide-formoterol [Symbicort] 160-4.5 mcg/actuation HFA aerosol inhaler See Rx Instructions .ROUTE .COMPLEX Qty: 10.2 0RF Dose Instruction: USE 2 PUFFS TWO TIMES DAILY FOR 2 WEEKS Rx Instructions: USE 2 PUFFS TWO TIMES DAILY FOR 2 WEEKS ondansetron 4 mg tablet,disintegrating See Rx Instructions .ROUTE .COMPLEX Qty: 10 0RF Dose Instruction: DISSOLVE ONE TABLET BY MOUTH EVERY 6 HOURS NEEDED FOR NAUSEA AND VOMITING Rx Instructions: DISSOLVE ONE TABLET BY MOUTH EVERY 6 HOURS NEEDED FOR NAUSEA AND VOMITING Referrals: Susannah Cruz MD [Primary Care Provider] - Coding Level of Care Code ED Heeler for Jojo Marino
[2022-12-29 20:35] VITALS: O2SAT 93
[2022-12-29 20:57] LABS: Basophils % 0.4 %; Eosinophils # 0.2 10^3/uL (0.0-0.8); Hematocrit 36.9 % (37.0-47.0); Hemoglobin 11.3 g/dL (11.5-15.3); Lymphocytes # 1.7 10^3/uL (0.8-4.8); Lymphocytes % 16.7 %; Mean Corpuscular HGB Conc 30.6 g/dL (30.0-36.0); Mean Corpuscular Hemoglobin 26.9 pg (28.0-34.0); Mean Corpuscular Volume 87.9 fl (81-99); Mean Platelet Volume 9.7 fL (7.4-10.4); Monocytes # 0.7 10^3/uL (0.2-0.9); Monocytes % 7.3 %; Neutrophils # 7.37 10^3/uL (1.8-7.7); Neutrophils % 72.9 %; Nucleated Red Blood Cells % 0 %; Platelet Count 243 10^3/cmm (130-400); White Blood Count 10.1 10^3/uL (4.0-10.0)
[2022-12-29] MEDS: bumetanide 0.25 mg/mL SDV 4 mL 2 MG IVP (21:05)
[2022-12-29 21:11] LABS: Troponin(5th) Baseline 7 ng/L (0-10)
[2022-12-29 21:20] LABS: Alanine Aminotransferase 20 U/L (0-33); Albumin Level 3.5 g/dL (3.5-5.2); Alkaline Phosphatase 67 U/L (35-105); Aspartate Amino Transferase 23 U/L (0-32); Blood Urea Nitrogen 13 mg/dL (6-20); Calcium 9.4 mg/dL (8.5-10.5); Carbon Dioxide 26 mmol/L (22-29); Chloride 102 mmol/L (98-107); Globulin 4.3 g/dL (1.3-4.6); Glomerular Filtration Rate 106.3 mL/min (90-130); Glucose 157 mg/dL (65-115); Magnesium 1.6 mg/dL (1.7-2.3); NT Pro B Type Natriuretic Pept 111 pg/mL (0-125); Osmolality Calculated 287 mOsm/kg (285-295); Sodium 137 mmol/L (136-145); Total Bilirubin 0.3 mg/dL (0.15-1.2); Total Protein 7.8 g/dL (6.6-8.7)
[2022-12-29 21:23] LABS: Anion Gap 13.1 (5-19); Potassium 4.1 mmol/L (3.5-5.1)
--- NOTE | 2022-12-29 21:47 | PM.HP ---
Providers/Chief Complaint Primary Care Provider: Susannah Cruz MD Chief Complaint: sob, swelling,cp History of Present Illness Ziyad Felipe is a 47 year old female with past medical history of hypertension, chronic bilateral lower extremity lymphedema, morbid obesity, came in today with chief complaint of worsening bilateral lower extremity swelling, as well as worsening bilateral lower extremity wound, she was also complaining of Worsening shortness of breath, particularly with minimal exertion, also has orthopnea, no PND. She was requiring 2 L of oxygen to maintain acceptable oxygen saturation, do not use oxygen at home. X-ray chest has shown: Cardiomegaly, no pulmonary vascular congestion. Pertinent labs: WBC 10.1, H&H 11/36, PLT: 243 , serum sodium 137, serum potassium 4.1, BUN 13, serum creatinine 0.6 proBNP: 111 (could be falsely low in the setting of morbid obesity) Patient received 2 mg Bumex IV one-time dose in ER. Review of Systems General: Reports: 10 or more systems reviewed and unremarkable except in HPI and below Const: Denies: fever(s), chills, body aches, change in appetite or diaphoresis Card: Reports: edema, swelling of feet/ankles and dyspnea on exertion; Denies: palpitations or orthopnea Resp: Reports: dyspnea; Denies: productive cough, wheezing or pain on inspiration GI: Denies: abdominal pain, nausea, vomiting, diarrhea or constipation : Denies: flank pain Musc: Denies: back pain, extremity pain or extremity swelling Neuro: Reports: difficulty walking; Denies: headache(s) or confusion Medications/Allergies Home Medications Medication Instructions Recorded Confirmed Last Taken Type multivitamin 1 tab PO BEDTIME 11/18/19 02/08/22 07/30/20 History tramadol 50 mg tablet 50 mg PO TID PRN pain 30 days #90 10/31/21 02/08/22 Unknown Rx tabs mupirocin 2 % topical ointment 1 applic topical TID #15 grams 01/09/22 02/08/22 Unknown Rx sulfamethoxazole 800 1 tab PO BID 10 days #20 tabs 01/09/22 02/08/22 Unknown Rx mg-trimethoprim 160 mg tablet (Bactrim DS) hydrocodone 10 mg-acetaminophen 1 tab PO QID pain 30 days #120 tabs 02/08/22 02/08/22 Unknown Rx 325 mg tablet naloxone 4 mg/actuation nasal spray 4 mg intranasal Q2M #2 ea 02/08/22 02/08/22 Unknown Rx hydrocodone 10 mg-acetaminophen 1 tab PO QID pain 4 days #16 tabs 04/11/22 Unknown Rx 325 mg tablet fexofenadine 180 mg tablet 180 mg PO DAILY PRN Allergy 05/17/22 Unknown Rx ([facility] All[facility]) Symptoms #30 tabs prenat.vits,zayra,wmi-azed-ytvhp 1 tab PO DAILY #30 tabs 05/17/22 Unknown Rx pregabalin 50 mg capsule 50 mg PO TID #90 caps 06/18/22 Unknown Rx promethazine-DM 6.25 mg-15 mg/5 mL 5 ml PO Q6H PRN cough #118 mL 07/16/22 Unknown Rx oral syrup tizanidine 4 mg tablet See Rx Instructions .Route 09/17/22 Unknown Rx .COMPLEX #60 tabs budesonide-formoterol HFA 160 See Rx Instructions .Route 10/18/22 Unknown Rx mcg-4.5 mcg/actuation aerosol .COMPLEX #10.2 grams inhaler (Symbicort) ondansetron 4 mg disintegrating See Rx Instructions .Route 10/18/22 Unknown Rx tablet .COMPLEX #10 tabs trazodone 50 mg tablet See Rx Instructions .Route 10/18/22 Unknown Rx .COMPLEX #30 tabs Allergies Allergy/AdvReac Type Severity Reaction Status Date / Time red dye Allergy Intermediate rash Verified 11/20/21 10:39 amoxicillin [From Augmentin] Allergy HIVES AND Verified 11/20/21 10:39 ITCHING clavulanic acid Allergy HIVES AND Verified 11/20/21 10:39 [From Augmentin] ITCHING meperidine [From Demerol] Allergy HIVES, Verified 11/20/21 10:39 ITCHING AND SHORTNESS OF BREATH PFSH Acute PFSH: Medical History (Updated 12/29/22 @ 22:55 by Trace Nava MD) Arthralgia of cervical spine Current every day smoker Degeneration of intervertebral disc of cervical 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 Has been on and off treatment for many years. Surgical History H/O bariatric surgery (09/14/12) Laparoscopic band. H/O section 12/21/1991, 12/14/1993, 04/17/1995. History of bariatric surgery (~2016) Laparoscopic gastric sleeve. History of D&C (~09/2003) History of laparoscopic cholecystectomy (~1993) History of laparoscopy (09/21/18) Dx: Small bowel obstruction. Lysis of adhesions. Performed by Dr. Yee at [facility] [place]. History of left salpingo-oophorectomy (01/15/06) Laparotomy. Performed by Dr. Lovelace at [facility]. 10 cm left adnexal cystic mass. S/P total abdominal hysterectomy (08/01/20) With RSO. Performed by Dr. Deshpande at [facility] [place] in [place], [place]. Path showed polyp with complex hyperplasia with atypia Status post hysteroscopy (~05/09/20) Hysteroscopy with dilation and curettage with Dr. Paul Deshpande at [facility] Family History Father Diabetes Hypertension Social History Smoking and tobacco status: never smoked Alcohol intake: never Other details last substance use: Denies drug use. Vitals/I&O/Wt Last Vital Signs Temp 97.9 F 12/29/22 20:00 Pulse 102 H 12/29/22 20:00 Resp 24 H 12/29/22 20:00 BP 197/108 12/29/22 20:00 Pulse Ox 93 12/29/22 20:35 O2 Del Method 12/29/22 20:35 O2 Flow Rate 2 12/29/22 20:35 Weight last 48 hrs Weight 228.611 kg Physical Exam Const: COMMON NORMALS: patient oriented x3 HENMT: COMMON NORMALS: normocephalic and atraumatic HEAD & SCALP: normocephalic and atraumatic Resp: COMMON NORMALS: normal respiratory effort, No retractions, No use of accessory muscles and clear to auscultation bilaterally EFFORT & INSPECTION: Yes symmetric chest movement AUSCULTATION: clear to auscultation bilaterally Cardio: COMMON NORMALS: regular rate, regular rhythm, S1 normal heart sound present, S2 normal heart sound present, No gallops present (Cardio), No murmurs present (Cardio), No rub (Cardio) and Peripheral pulses 2+ throughout RATE: regular rate RHYTHM: regular rhythm HEART SOUNDS: S1 normal heart sound present and S2 normal heart sound present PERIPHERAL PULSES: Peripheral pulses 2+ throughout GI: COMMON NORMALS: Normal to inspection, nondistended, normoactive bowel sounds present, Soft to palpation, non-tender, No hepatosplenomegaly present and no masses AUSCULTATION: Yes normoactive bowel sounds PALPATION: Yes Soft to palpation and Yes No hepatosplenomegaly present RECTAL EXAM: deferred Extremity: NARRATIVE EXTREMITY EXAM: Bilateral lower extremity swelling redness, ulcers, 3+ bilateral pitting edema Neuro: COMMON NORMALS: patient oriented x3 Data 12/29/22 20:43 12/29/22 20:43 A&P Assessment and plan (1) Lymphedema associated with obesity: (2) Lower limb ulcer, ankle: (3) Accelerated hypertension: (4) LAURA (obstructive sleep apnea): (5) Obesity hypoventilation syndrome: (6) Morbid obesity: (7) Chronic low back pain with left-sided sciatica: (8) Bilateral lower leg cellulitis: Plan Amelie Felipe is a 47 year old female with past medical history of hypertension, chronic bilateral lower extremity lymphedema, morbid obesity, came in today with chief complaint of worsening bilateral lower extremity swelling, as well as worsening bilateral lower extremity wound, she was also complaining of Worsening shortness of breath, particularly with minimal exertion, also has orthopnea, no PND. She was requiring 2 L of oxygen to maintain acceptable oxygen saturation, do not use oxygen at home. Assessment: Bilateral lower extremity cellulitis: Given the extent of the cellulitis, for now will cover with cefepime, routine wound care Wound care follow-up as outpatient Worsening bilateral lower extremity chronic lymphedema: Follow bilateral lower extremity Doppler vein to rule out DVT Continue Lasix 60 IV twice daily for now. Possible heart failure currently type unknown Patient is complaining of worsening shortness of breath with minimal exertion, orthopnea, worsening bilateral lower extremity swelling Though the proBNP is low it can be falsely low in the setting of morbid obesity Follow 2D echo X-ray chest has shown: Cardiomegaly Continue Lasix 60 IV twice daily Intake output charting Daily weight Monitor electrolytes Telemetry monitoring LAURA/OHS: Patient uses BiPAP at home continue with the same Hypoxia: Currently requiring 2 L oxygen, to maintain acceptable saturation, do not use oxygen at home Could be possibly secondary to sleep apnea Continue supplemental oxygen as needed BiPAP Hypertension: Appears to be not on antihypertensive medication at home,Will initiate lisinopril, for now. Monitor blood pressure for achieving target goal blood pressure. CODE STATUS: Full code DVT prophylaxis: On Lovenox Attestations Medical Necessity Statement*: Patient is to be in hospital for management of cellulitis. For IV diuresis, anticipated length of stay greater than 2 midnights. Coding Level of Care Code 79699 Diagnoses Lymphedema associated with obesity I89.0; E66.9 Lower limb ulcer, ankle L97.309 Accelerated hypertension I10 LAURA (obstructive sleep apnea) G47.33 Obesity hypoventilation syndrome E66.2 Morbid obesity E66.01 Chronic low back pain with left-sided sciatica M54.42; G89.29 Bilateral lower leg cellulitis L03.116; L03.115
--- NOTE | 2022-12-29 21:52 | PC.NURSE ---
Pt assisted to w/c at pt request. Pt able to stand and move self to chair. Does become SOB with activity. Bedside commode placed in front of pt and call light in reach. At this time, pt has urinated twice with approx 300ml output.
[2022-12-29 21:53] VITALS: BP 138/88; PULSE 92; RESP 22; O2SAT 94
[2022-12-29 22:00] VITALS: PULSE 79
[2022-12-29] MEDS: cefepime 2,000 MG in sodium chloride 0.9% (plus) 50 ML 100 MG IV (23:05)
[2022-12-29 23:06] LABS: Troponin 5 2HR 8.56 ng/L (0-10)
--- NOTE | 2022-12-29 23:06 | USR_ITS ---
PROCEDURE INFORMATION: Exam: US Duplex Lower Extremity Veins, Bilateral Exam date and time: 12/29/2022 11:18 PM Age: 47 years old Clinical indication: Edema, localized; Lower extremity, bilateral; Additional info: R/O dvt TECHNIQUE: Imaging protocol: Real-time duplex ultrasound of the bilateral extremities with 2-D santizo scale, color Doppler flow and spectral waveform analysis including responses to compression and other maneuvers (when performed) with image documentation. Complete exam focused on the lower extremity veins. COMPARISON: US soft tissue/extremity [id number] 07/11/2017 1:08 PM FINDINGS: Right deep veins: Unremarkable. The common femoral, femoral, proximal profunda femoral and popliteal veins are patent without thrombus. Normal Doppler waveforms. Normal compressibility and/or augmentation response. Right superficial veins: Saphenofemoral junction is patent without thrombus. Left deep veins: Unremarkable. The common femoral, femoral, proximal profunda femoral and popliteal veins are patent without thrombus. Normal Doppler waveforms. Normal compressibility and/or augmentation response. Left superficial veins: Saphenofemoral junction is patent without thrombus. Soft tissues: Unremarkable. US/[place] [id number] IMPRESSION: No evidence of deep vein thrombosis.
[2022-12-29] MEDS: enoxaparin 60 mg/0.6 mL Syringe SUBCUT (23:11)
[2022-12-29 23:34] LABS: Troponin 5 2HR Delta 1.56 ABS# (0-10)
[2022-12-30] VITALS (9 sets, daily range): BP systolic 115–153; BP diastolic 74–85; PULSE 73–91; RESP 16–18; TEMP 36.3–37.8; O2SAT 94–98
--- NOTE | 2022-12-30 01:06 | PC.NURSE ---
Addendum entered by Ronadlo Sandoval RN 12/30/22 01:07: Amended to note that this was done at 2300. Original Note: Pt waiting on bariatric bed at this time. Pt was assisted back to stretcher for US to do Bilat LE US. Will take pt to med surg when US is complete.
[2022-12-30 03:17] LABS: Basophils % 0.4 %; Eosinophils # 0.3 10^3/uL (0.0-0.8); Eosinophils % 2.5 %; Hematocrit 36.2 % (37.0-47.0); Lymphocytes # 1.9 10^3/uL (0.8-4.8); Lymphocytes % 19.7 %; Mean Corpuscular HGB Conc 30.4 g/dL (30.0-36.0); Mean Corpuscular Hemoglobin 27.3 pg (28.0-34.0); Mean Corpuscular Volume 89.8 fl (81-99); Mean Platelet Volume 9.8 fL (7.4-10.4); Monocytes # 0.8 10^3/uL (0.2-0.9); Monocytes % 7.9 %; Neutrophils # 6.75 10^3/uL (1.8-7.7); Neutrophils % 68.5 %; Nucleated Red Blood Cells % 0 %; Platelet Count 234 10^3/cmm (130-400); Red Blood Count 4.03 10^6/uL (4.1-5.3); Red Cell Distribution Width 17.1 % (12.1-15.1); White Blood Count 9.9 10^3/uL (4.0-10.0)
[2022-12-30 03:39] LABS: Troponin 5 6HR 8.43 ng/L (0-10)
[2022-12-30 03:48] LABS: Troponin 5 6HR Delta 1.43 ng/L (0-12)
[2022-12-30 03:58] LABS: Anion Gap 13.9 (5-19); Blood Urea Nitrogen 13 mg/dL (6-20); Calcium 8.8 mg/dL (8.5-10.5); Carbon Dioxide 29 mmol/L (22-29); Chloride 100 mmol/L (98-107); Glomerular Filtration Rate 88.9 mL/min (90-130); Glucose 100 mg/dL (65-115); Magnesium 1.7 mg/dL (1.7-2.3); Osmolality Calculated 288 mOsm/kg (285-295); Potassium 3.9 mmol/L (3.5-5.1); Sodium 139 mmol/L (136-145)
--- NOTE | 2022-12-30 06:00 | USCV_ITS ---
Zyiad Felipe Age: 47 Gender: F : 1975 Exam Date: 12/30/2022 12:31 Ordering Phys: Trace Nava MD Technologist: Joaquim Galvez Exam Location: [facility] [place] Indication: sob BP: 156 / 85 HR: 78 Rhythm: Sinus Technical Quality: Adequate MEASUREMENTS (Male / Female) Normal Values 2D ECHO LV Diastolic Diameter PLAX 4.6 cm 4.2 - 5.9 / 3.9 - 5.3 cm LV Systolic Diameter PLAX 3.3 cm IVS Diastolic Thickness 1.3 cm 0.6 - 1.0 / 0.6 - 0.9 cm IVS Systolic Thickness 1.9 cm LVPW Diastolic Thickness 1.3 cm 0.6 - 1.0 / 0.6 - 0.9 cm LVPW Systolic Thickness 1.9 cm LVOT Diameter 2.1 cm LV Ejection Fraction 2D Teich 55.1 % LV Ejection Fraction MOD 2C 58.4 % LV Ejection Fraction 2C AL 59.1 % LA Diameter 4.0 cm M-MODE Aortic Annulus Diameter 3.5 cm LA Ao Ratio MM 1.2 DOPPLER AV Peak Velocity 166.0 cm/s LVOT Peak Velocity 109.0 cm/s AV Area Cont Eq vti 1.8 cm squared AV Area Cont Eq pk 2.2 cm squared MV Area PHT 5.0 cm squared Mitral E to A Ratio 1.1 MV E' Velocity 62.5 cm/s Mitral E to MV E' Ratio 17.0 Mitral E to LV E' Lateral Ratio 19.5 Mitral E to LV E' Septal Ratio 15.3 TR Peak Velocity 183.0 cm/s TR Peak Gradient 13.4 mmHg TV Peak E Velocity 103.0 cm/s Right Atrial Pressure 3.0 mmHg Pulmonary Artery Systolic Pressu 16.4 mmHg FINDINGS Left Ventricle Normal left ventricular size and systolic function, EF 56 %. No regional wall motion abnormalities. Right Ventricle Right Atrium Left Atrium Mitral Valve Aortic Valve Tricuspid Valve Pulmonic Valve Pericardium No pericardial effusion. Aorta IVC CONCLUSIONS Technically very difficult study. Echo contrast -Optison was used to delineate the LV endocardium and ejection fraction estimation. LV ejection fraction was estimated to be 56%. Normal LV size with no gross wall motion normalities No pericardial effusion Dr Karime Clay MD FACC (Electronically Signed) Final Date: 31 December 2022 08:18 S
[2022-12-30] MEDS: FUROsemide 10 mg/mL SDV 10mL 60 MG IVP ×2 (06:08→17:39)
[2022-12-30] MEDS: pregabalin 50 mg Capsule PO ×3 (09:50→19:35)
--- NOTE | 2022-12-30 10:17 | P.PN_ITS ---
Subjective Subjective: History and physical was reviewed. Patient reports she feels little bit better after diuresing heavily. She denies any chest pain or shortness of breath. She reports she has chronic swelling in her lower extremities, but usually never above the knee. She did notice for the last several months this was worse. She relates that she stopped taking Lasix sometime ago as she did not think it was effective. No recent fevers. Has noticed some significant blisters left lower extremity with erythema. Medications: Reviewed: Yes Vitals/I&O/Wt Last Vital Signs Temp 100.0 F H 12/30/22 08:00 Pulse 81 12/30/22 08:00 Resp 16 12/30/22 08:00 BP 140/84 12/30/22 08:00 Pulse Ox 96 12/30/22 08:00 O2 Del Method 12/30/22 08:00 O2 Flow Rate 2 12/29/22 21:53 12/29/22 12/30/22 12/30/22 22:59 06:59 14:59 Intake Total 50 / 50 Output Total 300 / 300 4000 / 4000 Balance -250 / -250 -4000 / -4000 Weight last 48 hrs Weight 250.156 kg Weight 228.611 kg Physical Exam Narrative: General exam is a white female, in no distress on 2 L of oxygen Neck is supple Cardiovascular regular rate and rhythm Lungs clear but with diminished breath sounds at the bases Abdomen soft obese bowel sounds are noted Extremities show a tremendous amount of lymphedema, and edema does go above the knee bilaterally. On the left side there are some blisters with erythema surrounding with slight amount of yellow drainage. Distal cap refill is intact. Skin see findings above Neuro no obvious focal deficits Urinary Catheter Management: Brumfield: Cath Placed During This Visit: yes Reason for Continuing Indwelling Catheter: Accurate Measurement of Urinary Output in Critically Ill Patients Urinary Catheter Date of Insertion: 12/30/22 Urinary Catheter Time of Insertion: 02:26 Data 12/30/22 02:43 12/30/22 02:43 Other Labs: TSH is normal Troponins and delta were not significantly elevated Magnesium has been corrected and normal this morning I have ordered a urinalysis A&P Assessment and plan (1) Cellulitis: Patient has evidence of left lower extremity cellulitis Add vancomycin to her third-generation cephalosporin Venous duplex was negative for any DVT No blood cultures were done on admission. Should she spike any fever will obtain (2) Acute diastolic heart failure: Continue diuresis with IV Lasix BMP tomorrow to evaluate renal function (3) Lymphedema associated with obesity: May benefit from wound care at discharge secondary to lymphedema associated with skin breakdown lower extremities, especially in the left Plan Acute on chronic anemia. Continue to monitor. CBC tomorrow Attestations Medical Necessity Statement*: Needs continued hospitalization for IV antibiot ics related to cellulitis, lower extremities Diagnoses Cellulitis L03.90 Acute diastolic heart failure I50.31 Lymphedema associated with obesity I89.0; E66.9
[2022-12-30] MEDS: cefepime 2,000 MG in sodium chloride 0.9% (plus) 50 ML 100 MG IV ×2 (11:49→22:47)
--- NOTE | 2022-12-30 12:31 | PC.CHAP ---
Pastoral Care Encounter/Spiritual Assessment Type of Contact [] Declined outside contractor sales visit [] Patient/Family/Request visit [] Outpatient visit [] Follow-up visit [] Physician referral [] Code/Alert [x] Routine visit [] Staff referral [] Actively dying [] Patient sleeping [] Family support [] [] Out of room [] Palliative care [] [] Receiving care in room [] Pre-surgical visit [] Trauma [] Long length of stay [] ICU visit [] Other: Relational/Emotional Strength []x Patient feels connected with others/family/visitors/staff [] Distress [] Loneliness/isolation [] Abandonment Spirituality of Patient [x] Person of [place] [] Attends Baptism of their [place] [x] Believes in Prayer [] Reads Bible or Synagogue materials [] There are 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 [x] Prayer [] Active listening [] Non-anxious presence [] Spiritual/emotional support [] Crisis/trauma care [] Spiritual counseling [] Bereavement support [] Provided bereavement packet [] Provided Bible/devotional materials [] Provided toy/stuffed animal, coloring book to patient or family member [] Provided Communion [] Anointing/[place] [] Salvation [x] Completed spiritual assessment [] Other: Impact on Illness or Injury [] Angry [] Fearful [] Anxious [] Often cries [] Exhaustion [] Unable to work [] Unable to attend islam [] Unable to walk/stand [] Unable to read [] Unable to drive [] Unable to eat/drink [] Unable to sleep [] Unable to be with family [] Patient intubated [] Other: Summary Time spent with patient 10 min
[2022-12-30] MEDS: tizanidine 4 mg Tablet PO ×2 (12:53→19:36)
[2022-12-30] MEDS: perflutren protein-a microsphr 0.22 mg/mL SDV 3 mL IV (12:54)
[2022-12-30] MEDS: silver sulfadiazine cream 1% 50 gm 1 APPLIC TOPICAL (16:36)
[2022-12-30 17:58] LABS: Bilirubin Urine Neg (Negative); Blood Urine 2+ (Negative); Glucose Urine UA Norm (Normal); Ketones Urine Negative (Negative); Leukocyte Esterase Urine Trace (Negative); Nitrate Urine Negative (Negative); Protein Urine 1+ (Negative); Specific Gravity, Urine 1.015 (1.005-1.030); Urine Appearance Hazy (CLEAR); Urine Color Yellow (Yellow); Urobilinogen Urine Neg (Negative); pH Urine 5 (5-7)
[2022-12-30 18:00] LABS: RBC Urine 0-4 /hpf (0-2); WBC Urine 0-4 /hpf (0-5)
[2022-12-30 18:01] LABS: Amorphous Sediment Urine 2+ /hpf; Bacteria Urine TRACE /hpf; Hyaline Casts Urine 0-4 /lpf; Mucus Urine 2+ /hpf; Squamous Epithelial Cell Urine 0-4 /hpf (0-5)
[2022-12-30 18:02] LABS: Add Urine Culture? No
[2022-12-30] MEDS: nicotine 21 mg Patch 1 PATCH TRANSDERMA (18:38)
[2022-12-30] MEDS: TRAMadol 50 mg Tablet PO (19:34)
[2022-12-30] MEDS: trazodone 50 mg Tablet PO (19:34)
[2022-12-30] MEDS: enoxaparin 60 mg/0.6 mL Syringe SUBCUT (22:47)
--- NOTE | 2022-12-30 23:05 | PC.NURSE ---
Bedside report completed with DAVID Lraa at beginning of shift.
[2022-12-31] VITALS (10 sets, daily range): BP systolic 126–158; BP diastolic 71–96; PULSE 76–105; RESP 15–20; TEMP 36.5–36.9; O2SAT 92–95
[2022-12-31] MEDS: TRAMadol 50 mg Tablet PO ×2 (03:10→19:29)
[2022-12-31] MEDS: tizanidine 4 mg Tablet PO ×2 (03:10→19:30)
[2022-12-31 05:28] LABS: Basophils % 0.5 %; Eosinophils # 0.2 10^3/uL (0.0-0.8); Eosinophils % 2.9 %; Hematocrit 35.4 % (37.0-47.0); Hemoglobin 10.7 g/dL (11.5-15.3); Lymphocytes # 1.7 10^3/uL (0.8-4.8); Lymphocytes % 20.9 %; Mean Corpuscular HGB Conc 30.2 g/dL (30.0-36.0); Mean Corpuscular Hemoglobin 26.8 pg (28.0-34.0); Mean Corpuscular Volume 88.7 fl (81-99); Mean Platelet Volume 9.8 fL (7.4-10.4); Monocytes # 0.8 10^3/uL (0.2-0.9); Monocytes % 9.8 %; Neutrophils # 5.13 10^3/uL (1.8-7.7); Neutrophils % 65.1 %; Nucleated Red Blood Cells % 0 %; Platelet Count 233 10^3/cmm (130-400); Red Blood Count 3.99 10^6/uL (4.1-5.3); Red Cell Distribution Width 16.7 % (12.1-15.1); White Blood Count 7.9 10^3/uL (4.0-10.0)
[2022-12-31 05:50] LABS: Anion Gap 9.8 (5-19); Blood Urea Nitrogen 10 mg/dL (6-20); Calcium 8.4 mg/dL (8.5-10.5); Carbon Dioxide 34 mmol/L (22-29); Chloride 100 mmol/L (98-107); Glomerular Filtration Rate 88.9 mL/min (90-130); Glucose 111 mg/dL (65-115); Magnesium 1.9 mg/dL (1.7-2.3); Osmolality Calculated 290 mOsm/kg (285-295); Potassium 3.8 mmol/L (3.5-5.1); Sodium 140 mmol/L (136-145)
[2022-12-31] MEDS: FUROsemide 10 mg/mL SDV 4mL 40 MG IVP ×2 (06:44→18:37)
--- NOTE | 2022-12-31 07:56 | PM.PN ---
Subjective Subjective: Ziyad reports she is feeling better. She thinks she is less swollen. Not short of breath currently. Cannot see some wrinkles in her lower extremities. Medications: Reviewed: Yes Vitals/I&O/Wt Last Vital Signs Temp 97.7 F 12/31/22 07:40 Pulse 76 12/31/22 07:40 Resp 15 12/31/22 07:40 BP 156/90 12/31/22 07:40 Pulse Ox 94 12/31/22 07:40 O2 Del Method 12/31/22 07:40 O2 Flow Rate 2 12/29/22 21:53 12/30/22 12/31/22 12/31/22 22:59 06:59 14:59 Intake Total 890 / 1180 500 / 1680 Output Total 3650 / 7650 1450 / 9100 Balance -2760 / -6470 -950 / -7420 Weight last 48 hrs Weight 249.839 kg Weight 250.156 kg Weight 228.611 kg Physical Exam Narrative: General exam is a white female, no distress Neck is supple Cardiovascular regular rate and rhythm Lungs clear but with diminished breath sounds at the bases Abdomen soft obese bowel sounds are noted Extremities show a tremendous amount of lymphedema, and edema does go above the knee bilaterally. On the left side there are some blisters with erythema surrounding with slight amount of yellow drainage. Distal cap refill is intact. Edema is slightly better but still present Skin see findings above Neuro no obvious focal deficits Urinary Catheter Management: [place]um[place]: Cath Placed During This Visit: yes Reason for Continuing Indwelling Catheter: Accurate Measurement of Urinary Output in Critically Ill Patients Urinary Catheter Date of Insertion: 12/30/22 Urinary Catheter Time of Insertion: 02:26 Data 12/31/22 04:52 12/31/22 04:52 A&P Assessment and plan (1) Cellulitis: Patient has evidence of left lower extremity cellulitis Continue vancomycin and cephalosporin. Pharmacy is going to monitor vancomycin levels, and we will monitor creatinine for toxicity. Venous duplex was negative for any DVT No blood cultures were done on admission. Should she spike any fever will obtain. She has not had any fevers (2) Acute diastolic heart failure: Continue diuresis with IV Lasix Repeat BMP tomorrow Echocardiogram has been taken, but results pending (3) Lymphedema associated with obesity: May benefit from wound care at discharge secondary to lymphedema associated with skin breakdown lower extremities, especially in the left Secondary to significant edema urinalysis was checked. Only 1+ proteinuria Plan Acute on chronic anemia. Continue to monitor. Hemoglobin is stable on CBC. No need to repeat tomorrow. Lovenox for DVT prophylaxis Attestations Medical Necessity Statement*: Needs continued hospital stay for diuresis Diagnoses Cellulitis L03.90 Acute diastolic heart failure I50.31 Lymphedema associated with obesity I89.0; E66.9
[2022-12-31] MEDS: nicotine 21 mg Patch 1 PATCH TRANSDERMA (08:39)
[2022-12-31] MEDS: silver sulfadiazine cream 1% 50 gm 1 APPLIC TOPICAL (08:40)
[2022-12-31] MEDS: pregabalin 50 mg Capsule PO ×3 (08:40→19:29)
[2022-12-31] MEDS: trazodone 50 mg Tablet PO (08:40)
[2022-12-31] MEDS: chlorhexidine gluconate 4% Btl 118 mL 1 APPLIC TOPICAL (11:39)
[2022-12-31] MEDS: cefepime 2,000 MG in sodium chloride 0.9% (plus) 50 ML 100 MG IV ×2 (11:44→22:19)
--- NOTE | 2022-12-31 14:18 | PC.NURSE ---
Patient states she has no pain. This is the best she has felt in a few days. Legs were washed down with chlorahex. and silvadine applied. Protective barrier rubbed on top of feet and toes to help with big scales of dry skin.
[2022-12-31] MEDS: enoxaparin 60 mg/0.6 mL Syringe SUBCUT (22:19)
[2022-12-31] MEDS: acetaminophen 325 mg Tablet 650 MG PO (22:19)
[2022-12-31 22:56] LABS: Vancomycin Trough 12.2 ug/mL (10-15)
--- NOTE | 2022-12-31 23:10 | PC.NURSE ---
Pharmacy notified of vanc trough of 12.2.
[2023-01-01 03:47] VITALS: BP 146/89; PULSE 70; RESP 15; TEMP 36.6; O2SAT 95
[2023-01-01 05:43] VITALS: PULSE 86
[2023-01-01] MEDS: tizanidine 4 mg Tablet PO (05:50)
[2023-01-01] MEDS: TRAMadol 50 mg Tablet PO (05:50)
[2023-01-01 06:24] LABS: Blood Urea Nitrogen 9 mg/dL (6-20); Calcium 8.4 mg/dL (8.5-10.5); Carbon Dioxide 31 mmol/L (22-29); Chloride 99 mmol/L (98-107); Glomerular Filtration Rate 106.3 mL/min (90-130); Glucose 104 mg/dL (65-115); Osmolality Calculated 283 mOsm/kg (285-295); Sodium 137 mmol/L (136-145)
[2023-01-01 06:33] LABS: Anion Gap 10.7 (5-19); Potassium 3.7 mmol/L (3.5-5.1)
[2023-01-01 08:00] VITALS: BP 148/80; PULSE 73; RESP 16; TEMP 36.4; O2SAT 96
[2023-01-01] MEDS: nicotine 21 mg Patch 1 PATCH TRANSDERMA (09:46)
[2023-01-01] MEDS: FUROsemide 10 mg/mL SDV 4mL 40 MG IVP (09:48)
[2023-01-01] MEDS: pregabalin 50 mg Capsule PO (09:48)
[2023-01-01] MEDS: chlorhexidine gluconate 4% Btl 118 mL 1 APPLIC TOPICAL (09:49)
[2023-01-01] MEDS: silver sulfadiazine cream 1% 50 gm 1 APPLIC TOPICAL (09:50)
--- NOTE | 2023-01-01 10:21 | P.DS_ITS ---
Discharge Providers Date of Admission: 12/29/22 22:33 Date of Discharge: January 01, 2023 Attending Provider at Admission: Trace Nava MD Attending Provider at Discharge: Branden Sequeira MD Primary Care Provider: Susannah Cruz MD Diagnoses at Discharge Discharge Diagnosis (1) Cellulitis: Status: Acute (2) Acute diastolic heart failure: Status: Acute (3) Lymphedema associated with obesity: Status: Acute Reason for Visit Reason for Visit: sob, swelling,cp Hospital Course Hospital Course Morbidly obese 47-year-old female who presented to hospital for left lower extremity cellulitis and acute diastolic heart failure. Patient diuresed very well 15 L off today. She is fairly mobile with a walker at home, lives with her son in law and daughter, she will need outpatient wound care, patient had home health services in the past, son-in-law knew how to do compression wraps in the past patient is endorsing that it made a big difference, at the time of discharge she will need bacitracin topical ointment, doxycycline, for her wound care she could use bacitracin topical ointment daily with daily dressing changes with Kerlix ABD and Wilfredo compression wraps. We will arrange home health services for her. Echo showed preserved ejection fraction. For her cellulitis I will give her doxycycline and levofloxacin, patient is allergic to Augmentin Outpatient wound care clinic referral Home health services to be arranged She will continue her diuretics I will prescribe Bumex instead of Lasix, patient was taking p.o. 40 mg of Lasix at home which she stopped taking thinking it is not working for to make more urine, will prescribe 2 mg in the morning, she can adjust the dose to 2 mg twice a day on as-needed basis if morning dose is not helping her relieve her symptoms, potassium supplement added Physical Exam Narrative: Pleasant cooperative female Good granulation tissue noted on left lower leg Mild serous drainage Lymphedema Congestive heart failure sign superimposed lymphedema Abdomen soft Currently on 2 L Awake and alert Pleasant cooperative She uses a walker Urinary Catheter Management: [place]: Cath Placed During This Visit: yes Reason for Continuing Indwelling Catheter: Accurate Measurement of Urinary Output in Critically Ill Patients Urinary Catheter Date of Insertion: 12/30/22 Urinary Catheter Time of Insertion: 02:26 Discharge Data Studies Completed and Pending Completed Studies During Hospitalization Category Date Time Status XR chest 1V portable [id number] Stat Exams 12/29/22 19:56 Completed CV. echo wo/w contrast [id number] Routine Ultrasound 12/30/22 06:00 Completed US venous duplex lower extremity bilat [CV venous Ultrasound 12/29/22 23:06 [place] [id number]] Routine Radiology Impressions Chest X-Ray 12/29/22 19:56 IMPRESSION: Cardiomegaly, negative for infiltrate. Venous Duplex 12/29/22 23:06 IMPRESSION: No evidence of deep vein thrombosis. Laboratory Results WBC 7.9 10^3/uL (4.0-10.0) 12/31/22 04:52 RBC 3.99 10^6/uL (4.1-5.3) L 12/31/22 04:52 Hgb 10.7 g/dL (11.5-15.3) L 12/31/22 04:52 Hct 35.4 % (37.0-47.0) L 12/31/22 04:52 MCV 88.7 fl (81-99) 12/31/22 04:52 MCH 26.8 pg (28.0-34.0) L 12/31/22 04:52 MCHC 30.2 g/dL (30.0-36.0) 12/31/22 04:52 RDW 16.7 % (12.1-15.1) H 12/31/22 04:52 Plt Count 233 10^3/cmm (130-400) 12/31/22 04:52 MPV 9.8 fL (7.4-10.4) 12/31/22 04:52 Neut % (Auto) 65.1 % 12/31/22 04:52 Lymph % (Auto) 20.9 % 12/31/22 04:52 [place] % (Auto) 9.8 % 12/31/22 04:52 Eos % (Auto) 2.9 % 12/31/22 04:52 Baso % (Auto) 0.5 % 12/31/22 04:52 Neut # (Auto) 5.13 10^3/uL (1.8-7.7) 12/31/22 04:52 Lymph # (Auto) 1.7 10^3/uL (0.8-4.8) 12/31/22 04:52 [place] # (Auto) 0.8 10^3/uL (0.2-0.9) 12/31/22 04:52 Eos # (Auto) 0.2 10^3/uL (0.0-0.8) 12/31/22 04:52 Baso # (Auto) 0.0 10^3/uL (0.0-0.1) 12/31/22 04:52 Nucleated RBC % (auto) 0 % 12/31/22 04:52 Nucleated RBCs # 0.0 /100WBC 12/31/22 04:52 Sodium 137 mmol/L (136-145) 01/01/23 05:52 Potassium 3.7 mmol/L (3.5-5.1) 01/01/23 05:52 Chloride 99 mmol/L (98-107) 01/01/23 05:52 Carbon Dioxide 31 mmol/L (22-29) H 01/01/23 05:52 Anion Gap 10.7 (5-19) 01/01/23 05:52 BUN 9 mg/dL (6-20) 01/01/23 05:52 Creatinine 0.6 mg/dL (0.5-0.9) 01/01/23 05:52 GFR Calculation 106.3 mL/min (90-130) 01/01/23 05:52 Glucose 104 mg/dL (65-115) 01/01/23 05:52 Calculated Osmolality 283 mOsm/kg (285-295) L 01/01/23 05:52 Calcium 8.4 mg/dL (8.5-10.5) L 01/01/23 05:52 Magnesium 2.0 mg/dL (1.7-2.3) 01/01/23 05:52 Total Bilirubin 0.3 mg/dL (0.15-1.2) 12/29/22 20:43 AST 23 U/L (0-32) 12/29/22 20:43 ALT 20 U/L (0-33) 12/29/22 20:43 Alkaline Phosphatase 67 U/L (35-105) 12/29/22 20:43 Troponin T Baseline 7 ng/L (0-10) 12/29/22 20:43 Troponin T 120 Minute 8.56 ng/L (0-10) 12/29/22 22:43 Delta Troponin T 1.56 ABS# (0-10) 12/29/22 22:43 Troponin T Hi Sens 6Hr 8.43 ng/L (0-10) 12/30/22 02:43 Troponin T Hi Sens 6Hr Delta 1.43 ng/L (0-12) 12/30/22 02:43 NT-Pro-B Natriuret Pep 111 pg/mL (0-125) 12/29/22 20:43 Total Protein 7.8 g/dL (6.6-8.7) 12/29/22 20:43 Albumin 3.5 g/dL (3.5-5.2) 12/29/22 20:43 Globulin 4.3 g/dL (1.3-4.6) 12/29/22 20:43 TSH 2.30 uIU/mL (0.27-4.20) 12/30/22 02:43 Urine Color Yellow (Yellow) 12/30/22 17:15 Urine Appearance Hazy (CLEAR) A 12/30/22 17:15 Urine pH 5 (5-7) 12/30/22 17:15 Ur Specific [place] 1.015 (1.005-1.030) 12/30/22 17:15 Urine Protein 1+ (Negative) H 12/30/22 17:15 Urine Glucose (UA) Norm (Normal) 12/30/22 17:15 Urine Ketones Negative (Negative) 12/30/22 17:15 Urine Blood 2+ (Negative) H 12/30/22 17:15 Urine Nitrate Negative (Negative) 12/30/22 17:15 Urine Bilirubin Neg (Negative) 12/30/22 17:15 Urine Urobilinogen Neg mg/dL (Negative) 12/30/22 17:15 Ur Leukocyte Esterase Trace (Negative) H 12/30/22 17:15 Urine RBC 0-4 /hpf (0-2) H 12/30/22 17:15 Urine WBC 0-4 /hpf (0-5) H 12/30/22 17:15 Ur Squamous Epith Cells 0-4 /hpf (0-5) H 12/30/22 17:15 Amorphous Sediment 2+ /hpf 12/30/22 17:15 Urine Bacteria Trace /hpf (NONE) 12/30/22 17:15 Hyaline Casts 0-4 /lpf H 12/30/22 17:15 Urine Mucus 2+ /hpf 12/30/22 17:15 Vancomycin Trough 12.2 ug/mL (10-15) 12/31/22 22:00 Vitals Last Vital Signs Temp 97.5 F L 01/01/23 08:00 Pulse 73 01/01/23 08:00 Resp 16 01/01/23 08:00 BP 148/80 01/01/23 08:00 Pulse Ox 96 01/01/23 08:00 O2 Del Method 01/01/23 08:00 O2 Flow Rate 1.5 01/01/23 03:47 Discharge Plan Discharge Patient Disposition: Home Condition: Stable Prescriptions: New (DME) LifestyleComfort Socks X-Large Misc See Rx Instructions .Route Qty: 2 0RF Rx Instructions: As directed bacitracin 500 unit/gram ointment 1 applic topical Q12H Qty: 28 3RF bumetanide 2 mg tablet 2 mg PO DAILY Qty: 120 3RF levofloxacin 750 mg tablet 750 mg PO DAILY 10 Days Qty: 10 0RF potassium chloride 20 mEq tablet extended release 20 meq PO DAILY Qty: 60 1RF doxycycline hyclate 100 mg tablet 100 mg PO BID 10 Days Qty: 20 0RF Continued hydrocodone-acetaminophen 10-325 mg tablet 1 tab PO QID 30 Days Qty: 120 0RF Rx Instructions: fill on or after 12/04/21 naloxone 4 mg/actuation spray,non-aerosol 4 mg intranasal Q2M Qty: 2 0RF Rx Instructions: spray 1 dose into ONE nostril; alternate nostrils w each dose until help arrives prenat.vits,zayra,kyc-wymw-rdnbh Tablet 1 tab PO DAILY Qty: 30 11RF pregabalin 50 mg capsule 50 mg PO TID Qty: 90 2RF tizanidine 4 mg tablet 4 mg PO TID PRN (Reason: Muscle Spasm) tramadol 50 mg tablet 50 mg PO TID PRN (Reason: Pain) Rx Instructions: fill on or after 11/04/21 and 12/04/21 trazodone 50 mg tablet 50 mg PO BEDTIME Symbicort 160-4.5 mcg/actuation HFA aerosol inhaler 2 puff inhalation BID Discharge Orders: Discharge Order (Routine); Ordered 01/01/23 Ordered By: Branden Sequeira Referrals: [facility], [Staff Physician] - 4-7 days Susannah Cruz MD [Primary Care Provider] - 01/07/23 3:00 pm Discharge Diet: Cardiac Patient Instructions: Opioid Safety Discharge Attestations Time Spent in Discharge Care*: less than 30 min Quality Metrics Clinical Quality Measures [ No reported AMI, CVA or VTE this stay] Coding Level of Care Code Acute Code for Chg Fwd Diagnoses Cellulitis L03.90 Acute diastolic heart failure I50.31 Lymphedema associated with obesity I89.0; E66.9
[2023-01-01] MEDS: cefepime 2,000 MG in sodium chloride 0.9% (plus) 50 ML 100 MG IV (11:17)
[2023-01-01 12:00] VITALS: BP 158/89; PULSE 82; RESP 18; TEMP 36.8; O2SAT 93
[2023-01-01 13:44] VITALS: BP 158/89; PULSE 82; RESP 18; TEMP 36.8; O2SAT 93
== END 2023-01-01 13:15 | disposition home or self-care (01) | DRG 602 ==
LOC: ER 20:19 → MEDSURG 22:34
PROVIDERS: Internal Medicine; Physician Assistant; Admitting Provider Internal Medicine; Emergency Provider Emergency Medicine; PCP Family Medicine; Visit Provider Internal Medicine
DX: L03.116 Cellulitis of left lower limb (principal); I50.31 Acute diastolic (congestive) heart failure; E66.2 Morbid (severe) obesity with alveolar hypoventilation; Z68.45 Body mass index [BMI] 70 or greater, adult; I89.0 Lymphedema, not elsewhere classified; L03.115 Cellulitis of right lower limb; I11.0 Hypertensive heart disease with heart failure; T50.1X6A Underdosing of loop [high-ceiling] diuretics, initial encounter; R09.02 Hypoxemia; F17.200 Nicotine dependence, unspecified, uncomplicated; Z91.128 Patient's intentional underdosing of medication regimen for other reason; Z99.89 Dependence on other enabling machines and devices
CPT/HCPCS: 36415; 51702; 71045; 80048; 80053; 80202; 81001; 83735; 83880; 84443; 84484; 85025; 93005; 93970; 96372; 96374; 99285; C8929; J0692; J1650; J1940; J3370; J3490; J7040; Q9956

== ENCOUNTER 2023-02-12 17:52 | Emergency (ER) | payer MEDICAID, SELFPAY ==
[2023-02-12 18:06] VITALS: BP 179/78; PULSE 100; RESP 18; TEMP 36.6; O2SAT 96; BMI 72.5
[2023-02-12 20:23] LABS: Basophils % 0.3 %; Eosinophils # 0.2 10^3/uL (0.0-0.8); Eosinophils % 1.6 %; Hematocrit 39.5 % (37.0-47.0); Hemoglobin 12.1 g/dL (11.5-15.3); Lymphocytes # 1.4 10^3/uL (0.8-4.8); Lymphocytes % 11.6 %; Mean Corpuscular HGB Conc 30.6 g/dL (30.0-36.0); Mean Corpuscular Hemoglobin 26.8 pg (28.0-34.0); Mean Corpuscular Volume 87.6 fl (81-99); Mean Platelet Volume 9.6 fL (7.4-10.4); Monocytes % 7.7 %; Neutrophils # 9.54 10^3/uL (1.8-7.7); Neutrophils % 77.1 %; Nucleated Red Blood Cells % 0 %; Platelet Count 311 10^3/cmm (130-400); Red Blood Count 4.51 10^6/uL (4.1-5.3); Red Cell Distribution Width 16.7 % (12.1-15.1); White Blood Count 12.4 10^3/uL (4.0-10.0)
[2023-02-12 20:36] LABS: Erythrocyte Sedimentation Rate 34 mm/hr (0-15)
[2023-02-12 20:52] LABS: Alanine Aminotransferase 16 U/L (0-33); Albumin Level 3.7 g/dL (3.5-5.2); Alkaline Phosphatase 72 U/L (35-105); Anion Gap 16.1 (5-19); Aspartate Amino Transferase 16 U/L (0-32); Blood Urea Nitrogen 10 mg/dL (6-20); C Reactive Protein 180.5 mg/L (0.0-4.9); Calcium 8.8 mg/dL (8.5-10.5); Carbon Dioxide 27 mmol/L (22-29); Chloride 99 mmol/L (98-107); Glomerular Filtration Rate 88.6 mL/min (90-130); Glucose 92 mg/dL (65-115); NT Pro B Type Natriuretic Pept 116 pg/mL (0-125); Osmolality Calculated 283 mOsm/kg (285-295); Potassium 5.1 mmol/L (3.5-5.1); Sodium 137 mmol/L (136-145); Total Bilirubin 0.4 mg/dL (0.15-1.2); Total Protein 8.7 g/dL (6.6-8.7)
[2023-02-12 21:06] LABS: Lactic Sepsis W/Reflex 1.3 mmol/L (0.5-2.2)
== END 2023-02-12 22:58 | disposition left against medical advice (07) ==
PROVIDERS: Emergency Medicine; Emergency Provider Family Medicine; PCP Family Medicine
DX: Z53.21 Procedure and treatment not carried out due to patient leaving prior to being seen by health care provider (principal)
CPT/HCPCS: 80053; 83605; 83880; 85025; 85651; 86140; 87040

== ENCOUNTER → 2023-02-17 16:14 | Outpatient (BNVA) | payer MEDICAID, SELFPAY | PROVIDERS: PCP Family Medicine; Visit Provider Nurse Practitioner Family | DX: M79.672 Pain in left foot (principal) | CPT/HCPCS: 73630; 87070; 87075; 87205 ==

== ENCOUNTER → 2023-02-25 13:23 | Outpatient (BNVA) | payer MEDICAID, SELFPAY | PROVIDERS: PCP Family Medicine; Visit Provider Podiatrist Foot & Ankle Surgery | DX: L97.921 Non-pressure chronic ulcer of unspecified part of left lower leg limited to breakdown of skin (principal); L03.116 Cellulitis of left lower limb; I89.0 Lymphedema, not elsewhere classified; I83.009 Varicose veins of unspecified lower extremity with ulcer of unspecified site | CPT/HCPCS: 99203 ==

== ENCOUNTER → 2023-03-04 13:11 | Outpatient (BNVA) | payer MEDICAID, SELFPAY | PROVIDERS: PCP Family Medicine; Visit Provider Podiatrist Foot & Ankle Surgery | DX: L03.90 Cellulitis, unspecified (principal); I89.0 Lymphedema, not elsewhere classified; I83.009 Varicose veins of unspecified lower extremity with ulcer of unspecified site; L97.921 Non-pressure chronic ulcer of unspecified part of left lower leg limited to breakdown of skin | CPT/HCPCS: 99213 ==

== ENCOUNTER → 2023-03-18 12:58 | Outpatient (BNVA) | payer MEDICAID, SELFPAY | PROVIDERS: PCP Family Medicine; Visit Provider Podiatrist Foot & Ankle Surgery | DX: Z09 Encounter for follow-up examination after completed treatment for conditions other than malignant neoplasm (principal); L03.115 Cellulitis of right lower limb; L03.116 Cellulitis of left lower limb; I89.0 Lymphedema, not elsewhere classified | CPT/HCPCS: 99213 ==

== ENCOUNTER → 2023-03-25 13:10 | Outpatient (BNVA) | payer MEDICAID, SELFPAY | PROVIDERS: PCP Family Medicine; Visit Provider Podiatrist Foot & Ankle Surgery | DX: I89.0 Lymphedema, not elsewhere classified (principal) | CPT/HCPCS: 99213 ==

== ENCOUNTER 2023-06-12 14:08 | Outpatient (CLI) | payer OTHER, SELFPAY | END 2023-06-12 14:09 | disposition home or self-care (01) | PROVIDERS: PCP Family Medicine; Visit Provider Dermatology | DX: Z02.71 Encounter for disability determination (principal); R06.09 Other forms of dyspnea | CPT/HCPCS: 94618 ==

== ENCOUNTER 2024-01-04 20:32 | Emergency (ER) | payer MEDICAID, SELFPAY ==
[2024-01-04] VITALS (10 sets, daily range): BP systolic 155–198; BP diastolic 73–111; PULSE 81–89; RESP 14–22; TEMP 36.4; O2SAT 92–98; BMI 75.3
--- NOTE | 2024-01-04 20:36 | XRR_ITS ---
PROCEDURE INFORMATION: Exam: XR Chest Exam date and time: 01/04/2024 8:59 PM Age: 48 years old Clinical indication: Chest pressure; Patient HX: Chest pain TECHNIQUE: Imaging protocol: Radiologic exam of the chest. Views: 1 view. COMPARISON: CR XR chest 1V portable [id number] 12/29/2022 8:03 PM FINDINGS: Lungs: New right basilar pleural thickening with areas of peripheral discoid atelectasis or fibrosis. The left lung is clear. Pleural spaces: See Lungs finding. Heart/Mediastinum: Unremarkable. No cardiomegaly. Bones/joints: Unremarkable. XR/XR chest 1V portable [id number] IMPRESSION: New right pleural thickening with peripheral fibrosis and atelectasis. Etiology uncertain but could be nonacute if there has been previous trauma or pneumonia since last year
--- NOTE | 2024-01-04 20:39 | ECG_ITS ---
[facility] Test Date: 2024-01-04 Pat Name: Ziyad Felipe Department: Room: Gender: Female Icer Machine: : 1975 Requested By: Marie Hannah Order Number: [id number] Conor MD: Mike Juarez M.D. Measurements Intervals [place] Rate: 86 P: 0 OK: 176 QRS: 29 QRSD: 93 T: 56 QT: 346 QTc: 416 Interpretive Statements SINUS RHYTHM WITH FREQUENT VENTRICULAR PREMATURE COMPLEXES NONSPECIFIC T-WAVE ABNORMALITY Compared to ECG 12/29/2022 20:01:25 Ventricular premature complex(es) now present Sinus tachycardia no longer present T-wave abnormality still present Electronically Signed On 01-05-2024 8:47:29 PROPERTY CLAIMS MANAGER by Mike Juarez M.D. [id number]
--- NOTE | 2024-01-04 20:44 | ED_ITS ---
HPI - Chest Pain 2 General: Chief Complaint: Chest Pain Stated Complaint: CP Time Seen by Provider: 01/04/24 20:36 Source: patient and EMS Mode of arrival: EMS Limitations: no limitations History of Present Illness: 48-year-old female states she has had in termittent chest pains throughout the day. States it has been a sharp pain in her left chest that comes and goes she is currently pain-free she denies any shortness of breath denies any cough or fever. She states the pain started when she was doing her hair is a very sharp pain left lower chest that seems to be worse at times with movement and palpation Associated symptoms: Deny abdominal pain, dyspnea, fever(s), nausea or vomiting Review of Systems 2 Const: Denies: fever(s), chills, body aches or change in appetite ENMT: Denies: throat pain or dental pain Card: Reports: chest pain Resp: Denies: dyspnea GI: Denies: abdominal pain, nausea, vomiting or diarrhea : Denies: dysuria Musc: Denies: neck pain or back pain Skin/Breast: Denies: rash Neuro: Denies: headache(s) PFSH ED 2 PFSH: Medical History (Updated 01/04/24 @ 21:44 by Marie Hannah MD) Acute diastolic heart failure Cellulitis Bilateral lower leg cellulitis Obesity hypoventilation syndrome Accelerated hypertension Smokes cigarettes Lower limb ulcer, ankle Lymphedema associated with obesity Polycystic ovarian syndrome Longstanding diagnosis, dating back to 2003. Has been on and off treatment for many years. LAURA (obstructive sleep apnea) Morbid obesity Hypertension Osteoarthritis of knees, bilateral Chronic low back pain with left-sided sciatica > 50% of 45 min visit counseling patient regarding weight. Encounter for long-term opiate analgesic use Current every day smoker Degeneration of intervertebral disc of cervical spine without disc herniation Arthralgia of cervical spine Surgical History S/P total abdominal hysterectomy (08/01/20) With RSO. Performed by Dr. Deshpande at [facility] in [place], [place]. Path showed polyp with complex hyperplasia with atypia Status post hysteroscopy (~05/09/20) Hysteroscopy with dilation and curettage with Dr. Paul Deshpande at [facility] History of laparoscopic cholecystectomy (~1993) History of D&C (~09/2003) History of laparoscopy (09/21/18) Dx: Small bowel obstruction. Lysis of adhesions. Performed by Dr. Yee at [facility]. History of left salpingo-oophorectomy (01/15/06) Laparotomy. Performed by Dr. Lovelace at [facility]. 10 cm left adnexal cystic mass. History of bariatric surgery (~2016) Laparoscopic gastric sleeve. H/O bariatric surgery (09/14/12) Laparoscopic band. H/O section 12/21/1991, 12/14/1993, 04/17/1995. Family History Father Diabetes Hypertension Social History Smoking and tobacco/nicotine status: never used tobacco/nicotine Alcohol intake: never Substance/Drug Use: never Physical Exam 2 Const: COMMON NORMALS: patient oriented x3 HENMT: COMMON NORMALS: normocephalic and atraumatic HEAD & SCALP: n ormocephalic and atraumatic Neck/C-Spine: COMMON NORMALS: full ROM and supple Chest: COMMONS NORMALS: normal inspection of the chest OTHER: Point tender to left chest reproduces pain Resp: COMMON NORMALS: normal respiratory effort, No retractions, No use of accessory muscles and clear to auscultation bilaterally AUSCULTATION: clear to auscultation bilaterally Cardio: COMMON NORMALS: regular rate, regular rhythm and No murmurs present (Cardio) RATE: regular rate RHYTHM: regular rhythm Extremity: COMMON NORMALS: normal to inspection and full ROM Neuro: COMMON NORMALS: patient oriented x3, moves all extremities and no focal motor deficits Psych: COMMON NORMALS: mental status grossly normal, Normal thought process present and cooperative THOUGHT PROCESS: Normal thought process present Skin: COMMON NORMALS: no rashes or lesions noted and no wounds GENERAL SKIN EXAM: no rashes or lesions noted Course 2 Vital Signs: Vital signs: Vital Signs Temperature 97.6 F 01/04/24 20:41 Pulse Rate 82 01/04/24 21:30 Respiratory Rate 18 01/04/24 21:30 Blood Pressure 177/99 01/04/24 21:04 Pulse Oximetry 97 01/04/24 21:30 Oxygen Delivery Me thod Room Air 01/04/24 20:41 MDM - Chest Pain Medical Decision Making Patient presents for chest pains atypical in nature likely muscular she is point tender on exam here. Her EKG is normal her troponin is 7. She feels improved here we will she stable for discharge she does not need a 2-hour troponin as her pain has been going on throughout the day she is to follow-up with PCP and return if worsening she understands agrees to plan she does have hypertension here we will start her on Norvasc she needs to monitor her blood pressure at home as well Medical Records I reviewed the patient's medical records. Lab Data I reviewed the patient's lab results. 01/04/24 21:07 01/04/24 21:07 Laboratory Results WBC 10.32 10^3/uL (3.29-11.43) 01/04/24 21:07 RBC 4.88 10^6/uL (3.85-5.65) 01/04/24 21:07 Hgb 12.80 g/dL (11.27-16.99) 01/04/24 21:07 Hct 41.2 % (36-47) 01/04/24 21:07 MCV 84.4 fl (85-98) L 01/04/24 21:07 MCH 26.2 pg (27-33) L 01/04/24 21:07 MCHC 31.1 g/dL (30-55) 01/04/24 21:07 RDW 16.9 % (12.1-15.1) H 01/04/24 21:07 Plt Count 258 10^3/cmm (157-399) 01/04/24 21:07 MPV 9.6 fL (7.4-10.4) 01/04/24 21:07 Neut % (Auto) 69.3 % 01/04/24 21:07 Lymph % (Auto) 18.8 % 01/04/24 21:07 [place] % (Auto) 7.7 % 01/04/24 21:07 Eos % (Auto) 3.0 % 01/04/24 21:07 Baso % (Auto) 0.3 % 01/04/24 21:07 Neut # (Auto) 7.16 10^3/uL (1.8-7.7) 01/04/24 21:07 Lymph # (Auto) 1.9 10^3/uL (0.8-4.8) 01/04/24 21:07 [place] # (Auto) 0.8 10^3/uL (0.2-0.9) 01/04/24 21:07 Eos # (Auto) 0.3 10^3/uL (0.0-0.8) 01/04/24 21:07 Baso # (Auto) 0.0 10^3/uL (0.0-0.1) 01/04/24 21:07 Nucleated RBC % (auto) 0 % 01/04/24 21:07 Nucleated RBCs # 0.0 /100WBC 01/04/24 21:07 Sodium 141 mmol/L (136-145) 01/04/24 21:07 Potassium 4.1 mmol/L (3.5-5.1) 01/04/24 21:07 Chloride 103 mmol/L (98-107) 01/04/24 21:07 Carbon Dioxide 27 mmol/L (22-29) 01/04/24 21:07 Anion Gap 15.1 (5-19) 01/04/24 21:07 BUN 12 mg/dL (6-20) 01/04/24 21:07 Creatinine 0.6 mg/dL (0.5-0.9) 01/04/24 21:07 GFR Calculation 105.8 mL/min (90-130) 01/04/24 21:07 Glucose 89 mg/dL (65-115) 01/04/24 21:07 Calculated Osmolality 291 mOsm/kg (285-295) 01/04/24 21:07 Calcium 8.8 mg/dL (8.5-10.5) 01/04/24 21:07 Total Bilirubin 0.3 mg/dL (0.15-1.2) 01/04/24 21:07 AST 17 U/L (0-32) 01/04/24 21:07 ALT 18 U/L (0-33) 01/04/24 21:07 Alkaline Phosphatase 73 U/L (35-105) 01/04/24 21:07 Troponin T Baseline 7 ng/L (0-10) 01/04/24 21:07 Total Protein 7.6 g/dL (6.6-8.7) 01/04/24 21:07 Albumin 3.8 g/dL (3.5-5.2) 01/04/24 21:07 Globulin 3.8 g/dL (1.3-4.6) 01/04/24 21:07 Lipase 14 U/L (13-60) 01/04/24 21:07 All radiology interpretation(s) finalized by discharge EKG Data EKG 1: I personally reviewed and interpreted this EKG as follows: EKG interpretation date: 01/04/24 EKG interpretation time: 20:39 Interpretation: nsr hr [address] or t wave abnormalities qrs 93 qtc 390 Discharge Plan Discharge Patient Disposition: Home Clinical Impression: Chest pain, Hypertension Condition: Stable Prescriptions: New Norvasc 10 mg tablet 10 mg PO DAILY Qty: 30 0RF No Action hydrocodone-acetaminophen 10-325 mg tablet 1 tab PO QID 30 Days Qty: 120 0RF Rx Instructions: fill on or after 12/04/21 naloxone 4 mg/actuation spray,non-aerosol 4 mg intranasal Q2M Qty: 2 0RF Rx Instructions: spray 1 dose into ONE nostril; alternate nostrils w each dose until help arrives prednisone 20 mg tablet 40 mg PO DAILY 5 Days Qty: 10 0RF levofloxacin 750 mg tablet 750 mg PO DAILY 5 Days Qty: 5 0RF albuterol sulfate [Ventolin HFA] 90 mcg/actuation HFA aerosol inhaler 2 puff inhalation Q4H PRN (Reason: shortness of breath or wheezing) Qty: 8.5 0RF prenat.vits,zayra,dua-dxya-ksbtw Tablet 1 tab PO DAILY Qty: 30 11RF esomeprazole magnesium [Nexium] 40 mg capsule,delayed release(DR/EC) 40 mg PO BID Qty: 60 3RF cephalexin 500 mg capsule 500 mg PO TID 10 Days Qty: 30 0RF potassium chloride 20 mEq tablet extended release 20 meq PO DAILY Qty: 60 1RF trazodone 50 mg tablet See Rx Instructions .ROUTE .COMPLEX Qty: 30 3RF Dose Instruction: TAKE 1 TABLET BY MOUTH AT BEDTIME Rx Instructions: TAKE 1 TABLET BY MOUTH AT BEDTIME sucralfate 1 gram tablet See Rx Instructions .ROUTE .COMPLEX Qty: 90 0RF Dose Instruction: TAKE ONE TABLET BY MOUTH THREE TIMES DAILY Rx Instructions: TAKE ONE TABLET BY MOUTH THREE TIMES DAILY Symbicort 160-4.5 mcg/actuation HFA aerosol inhaler See Rx Instructions .ROUTE .COMPLEX Qty: 10.2 2RF Dose Instruction: USE 2 PUFFS TWO TIMES DAILY FOR 2 WEEKS Rx Instructions: USE 2 PUFFS TWO TIMES DAILY FOR 2 WEEKS ondansetron HCl 4 mg tablet See Rx Instructions .ROUTE .COMPLEX Qty: 30 2RF Dose Instruction: TAKE 1 TABLET BY MOUTH EVERY 8 HOURS NEEDED FOR NAUSEA AND VOMITING Rx Instructions: TAKE 1 TABLET BY MOUTH EVERY 8 HOURS NEEDED FOR NAUSEA AND VOMITING tizanidine 4 mg tablet 4 mg PO TID PRN (Reason: Muscle Spasm) Qty: 90 2RF pregabalin 50 mg capsule 50 mg PO TID Qty: 90 2RF tramadol 50 mg tablet 50 mg PO TID PRN (Reason: Pain) Rx Instructions: fill on or after 11/04/21 and 12/04/21 bacitracin 500 unit/gram ointment 1 applic topical Q12H Qty: 28 3RF (DME) LifestyleComfort Socks X-Large Misc See Rx Instructions .Route Qty: 2 0RF Rx Instructions: As directed bumetanide 2 mg tablet 2 mg PO DAILY Qty: 120 3RF Discharge Orders: Discharge ED (Routine); Ordered 01/04/24 Ordered By: Marie Hannah Referrals: Susannah Cruz MD [Primary Care Provider] - 1-3 days Discharge Diet: Advance as tolerated Discharge Activity: Resume usual activity Patient Instructions: Chest Pain (ED), Hypertension (ED) Coding Level of Care Code ED Surgical Elastic Knitter Hand Frame for Jojo Marino
[2024-01-04 21:18] LABS: Basophils % 0.3 %; Eosinophils # 0.3 10^3/uL (0.0-0.8); Hematocrit 41.2 % (36-47); Lymphocytes # 1.9 10^3/uL (0.8-4.8); Lymphocytes % 18.8 %; Mean Corpuscular HGB Conc 31.1 g/dL (30-55); Mean Corpuscular Hemoglobin 26.2 pg (27-33); Mean Corpuscular Volume 84.4 fl (85-98); Mean Platelet Volume 9.6 fL (7.4-10.4); Monocytes # 0.8 10^3/uL (0.2-0.9); Monocytes % 7.7 %; Neutrophils # 7.16 10^3/uL (1.8-7.7); Neutrophils % 69.3 %; Nucleated Red Blood Cells % 0 %; Platelet Count 258 10^3/cmm (157-399); Red Blood Count 4.88 10^6/uL (3.85-5.65); Red Cell Distribution Width 16.9 % (12.1-15.1); White Blood Count 10.32 10^3/uL (3.29-11.43)
[2024-01-04 21:39] LABS: Troponin(5th) Baseline 7 ng/L (0-10)
[2024-01-04] MEDS: hyDRALAzine 20 mg/mL INJ 1 mL 10 MG IM (21:45)
[2024-01-04 21:53] LABS: Alanine Aminotransferase 18 U/L (0-33); Albumin Level 3.8 g/dL (3.5-5.2); Alkaline Phosphatase 73 U/L (35-105); Anion Gap 15.1 (5-19); Aspartate Amino Transferase 17 U/L (0-32); Blood Urea Nitrogen 12 mg/dL (6-20); Calcium 8.8 mg/dL (8.5-10.5); Carbon Dioxide 27 mmol/L (22-29); Chloride 103 mmol/L (98-107); Creatinine Clr Calc Pharmacy 248.7242; Globulin 3.8 g/dL (1.3-4.6); Glomerular Filtration Rate 105.8 mL/min (90-130); Glucose 89 mg/dL (65-115); Lipase 14 U/L (13-60); Osmolality Calculated 291 mOsm/kg (285-295); Potassium 4.1 mmol/L (3.5-5.1); Sodium 141 mmol/L (136-145); Total Bilirubin 0.3 mg/dL (0.15-1.2); Total Protein 7.6 g/dL (6.6-8.7)
[2024-01-04 22:44] LABS: Troponin 5 2HR 9.32 ng/L (0-10); Troponin 5 2HR Delta 2.32 ABS# (0-10)
== END 2024-01-04 22:40 | disposition home or self-care (01) ==
PROVIDERS: Emergency Provider Emergency Medicine; PCP Family Medicine
DX: R07.9 Chest pain, unspecified (principal); I11.0 Hypertensive heart disease with heart failure; I50.31 Acute diastolic (congestive) heart failure
CPT/HCPCS: 36415; 71045; 80053; 83690; 84484; 85025; 93005; 96372; 99285; J0360

== ENCOUNTER 2024-05-13 19:04 | Inpatient (IN) | payer MEDICAID, SELFPAY ==
[2024-05-13 19:16] VITALS: BP 133/75; PULSE 93; RESP 20; TEMP 36.7; O2SAT 95; BMI 72.2
--- NOTE | 2024-05-13 21:13 | XRR_ITS ---
PROCEDURE INFORMATION: Exam: XR Chest Exam date and time: 05/13/2024 9:22 PM Age: 49 years old Clinical indication: Shortness of breath TECHNIQUE: Imaging protocol: Radiologic exam of the chest. Views: 1 view. COMPARISON: CR XR chest 1V portable [id number] 01/04/2024 8:59 PM FINDINGS: Lungs: Unremarkable. No consolidation. Pleural spaces: Unremarkable. No pleural effusion. No pneumothorax. Heart/Mediastinum: Cardiomegaly similar to the prior study. Bones/joints: Unremarkable. XR/XR chest 1V portable [id number] IMPRESSION: Cardiomegaly similar to the prior study.
--- NOTE | 2024-05-13 21:14 | ECG_ITS ---
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 Measurements Intervals [place] Rate: 80 P: 2 TN: 188 QRS: 24 QRSD: 93 T: 59 QT: 378 QTc: 438 Interpretive Statements SINUS RHYTHM WITH SINUS ARRHYTHMIA Compared to ECG 01/04/2024 20:39:53 Ventricular premature complex(es) no longer present T-wave abnormality no longer present Electronically Signed On 05-13-2024 23:26:56 CDT by Karime Clay M.D. [email or web address] [id number]
--- NOTE | 2024-05-13 21:16 | W.ED.SOB ---
HPI - SOB/Dyspnea General: Chief Complaint: Shortness of Breath/Dyspnea Stated Complaint: Sob\[place]\Cant get up and down Time Seen by Provider: 05/13/24 21:09 History of Present Illness: HPI Narrative: 49-year-old female with a history of morbid obesity, diastolic heart failure, chronic cellulitis and venous stasis dermatitis, obstructive sleep apnea, hypertension, chronic pain syndrome, on chronic opiate therapy who presents to the emergency room with several complaints. She says I need a catheter put in and I need to be admitted to get Lasix to get this fluid off of me, and have cellulitis on my leg so bad the skin is peeling off, and I think you still have pneumonia and I need you to get rid of it . He is more short of breath than usual. Says she is been having cramps in her legs. Review of Systems Narrative: Constitutional symptoms: Negative except as documented in HPI. Skin symptoms: Negative except as documented in HPI. Eye symptoms: Negative except as documented in HPI. ENMT symptoms: Negative except as documented in HPI. Respiratory symptoms: Negative except as documented in HPI. Cardiovascular symptoms: Negative except as documented in HPI. Gastrointestinal symptoms: Negative except as documented in HPI. Genitourinary symptoms: Negative except as documented in HPI. Musculoskeletal symptoms: Negative except as documented in HPI. Neurologic symptoms: Negative except as documented in HPI. Psychiatric symptoms: Negative except as documented in HPI. Endocrine symptoms: Negative except as documented in HPI. [facility] ED PFSH: Medical History (Updated 05/13/24 @ 23:20 by Emily Gilbert MD) Acute diastolic heart failure Cellulitis Bilateral lower leg cellulitis Obesity hypoventilation syndrome Accelerated hypertension Smokes cigarettes Lower limb ulcer, ankle Lymphedema associated with obesity Polycystic ovarian syndrome Longstanding diagnosis, dating back to 2003. Has been on and off treatment for many years. LAURA (obstructive sleep apnea) Morbid obesity Hypertension Osteoarthritis of knees, bilateral Chronic low back pain with left-sided sciatica > 50% of 45 min visit counseling patient regarding weight. Encounter for long-term opiate analgesic use Current every day smoker Degeneration of intervertebral disc of cervical spine without disc herniation Arthralgia of cervical spine Surgical History S/P total abdominal hysterectomy (08/01/20) With RSO. Performed by Dr. Deshpande at [facility] in [place], [place]. Path showed polyp with complex hyperplasia with atypia Status post hysteroscopy (~05/09/20) Hysteroscopy with dilation and curettage with Dr. Paul Deshpande at [facility] History of laparoscopic cholecystectomy (~1993) History of D&C (~09/2003) History of laparoscopy (09/21/18) Dx: Small bowel obstruction. Lysis of adhesions. Performed by Dr. Yee at [facility]. History of left salpingo-oophorectomy (01/15/06) Laparotomy. Performed by Dr. Lovelace at [facility]. 10 cm left adnexal cystic mass. History of bariatric surgery (~2016) Laparoscopic gastric sleeve. H/O bariatric surgery (09/14/12) Laparoscopic band. H/O section 12/21/1991, 12/14/1993, 04/17/1995. Family History Father Diabetes Hypertension Social History Smoking and tobacco/nicotine status: never used tobacco/nicotine Alcohol intake: never Substance/Drug Use: never Physical Exam Narrative: EXAM NARRATIVE: General: Alert, no acute distress. Skin: Warm, dry. Patient has extensive edema/venous stasis. She has venous stasis dermatitis that appears to have a super imposed infection. This appears worse on her left lateral perez. There is weeping and increased erythema and blistering. Head: Normocephalic, atraumatic. Neck: Supple, trachea midline. Eye: Extraocular movements are intact. Ears, nose, mouth and throat: mucosa moist. Cardiovascular: Regular, Normal peripheral perfusion. Respiratory: Lungs are clear to auscultation, tachypneic with mild exertion, breath sounds are equal, Symmetrical chest wall expansion. Gastrointestinal: Soft, Nontender, Non distended Musculoskeletal: Normal ROM, no deformity. Neurological: Alert and oriented, No focal neurological deficit observed. Psychiatric: Cooperative, appropriate mood & affect. Course Vital Signs: Vital signs: Vital Signs Temperature 98.1 F 05/13/24 19:16 Pulse Rate 71 05/13/24 22:54 Respiratory Rate 20 H 05/13/24 19:16 Blood Pressure 151/81 05/13/24 22:54 Pulse Oximetry 98 05/13/24 22:54 Oxygen Delivery Me thod Nasal Cannula 05/13/24 22:54 MDM - SOB/Dyspnea Medical Decision Making Medical decision making: Differential diagnosis including but not limited to and based on the above HPI, review of systems and physical exam: for patient with edema: Congestive heart failure. Kidney failure. DVT / Pulmonary embolism. Protein malnutrition. Cirrhosis. Orders placed to evaluate differential diagnosis based on the above differential, HPI and physical exam EKG: Time 2140. Rate 80. Normal sinus rhythm, No ST-T changes, no ectopy, normal CA & QRS intervals, This was reviewed and interpreted by myself the ER physician at 214 Chest x-ray: Mild stable cardiomegaly. No acute process. No infiltrate. No pneumothorax. This was reviewed and interpreted by myself the ER physician. Lab Review: Laboratory results were reviewed and interpreted by myself the emergency room physician. Some leukocytosis with a white count of 12,000. Stable anemia at 10.7. BUN and creatinine are normal at 9 and 0.6. Her ESR is elevated at 78. Her CRP is elevated at 29. This would indicate worsening infection of her lower extremities. I reviewed the patient's medical record. Reexamination: Patient remained stable. At rest she is not working hard to breathe. No altered mental status. No focal motor deficits. Wound is still weeping. Assessment and plan: Venous stasis dermatitis with overlying cellulitis Weeping edema Morbid obesity Edema -80 mg IV Lasix. IV cefepime -I discussed the patient with the hospitalist on-call who is admitting the patient. - Discussed findings and plan with patient. Answered any questions. - All laboratory values were reviewed and interpreted personally by myself, the ER physician - All imaging was reviewed and interpreted personally by myself, the ER physician. - Evaluation and treatment of this problem were appropriate in the emergency setting Lab Data 05/13/24 21:30 05/13/24 21:30 Labs/Radiology: Radiology Impressions Chest X-Ray 05/13/24 21:13 IMPRESSION: Cardiomegaly similar to the prior study. Laboratory Results WBC 12.69 10^3/uL (3.29-11.43) H 05/13/24 21:30 RBC 4.11 10^6/uL (3.85-5.65) 05/13/24 21:30 Hgb 10.70 g/dL (11.27-16.99) L 05/13/24 21:30 Hct 35.0 % (36-47) L 05/13/24 21:30 MCV 85.2 fl (85-98) 05/13/24 21:30 MCH 26.0 pg (27-33) L 05/13/24 21: MCHC 30.6 g/dL (30-55) 05/13/24 21: RDW 15.7 % (12.1-15.1) H 05/13/24 21:30 Plt Count 310 10^3/cmm (157-399) 05/13/24 21:30 MPV 9.0 fL (7.4-10.4) 05/13/24 21: Neut % (Auto) 78.4 % 05/13/24 21: Lymph % (Auto) 13.2 % 05/13/24 21: [place] % (Auto) 6.6 % 05/13/24 21: Eos % (Auto) 0.9 % 05/13/24 21: Baso % (Auto) 0.3 % 05/13/24 21:30 Neut # (Auto) 9.93 10^3/uL (1.8-7.7) H 05/13/24 21:30 Lymph # (Auto) 1.7 10^3/uL (0.8-4.8) 05/13/24 21:30 [place] # (Auto) 0.8 10^3/uL (0.2-0.9) 05/13/24 21: Eos # (Auto) 0.1 10^3/uL (0.0-0.8) 05/13/24 21:30 Baso # (Auto) 0.0 10^3/uL (0.0-0.1) 05/13/24 21: Nucleated RBC % (auto) 0 % 05/13/24 21: Nucleated RBCs # 0.0 /100WBC 05/13/24 21: ESR 78 mm/hr (0-15) H 05/13/24 21:30 Specimen Type Arterial 05/13/24 21:38 Sample Site Radial, left 05/13/24 21:38 ABG pH 7.42 (7.35-7.45) 05/13/24 21:38 ABG pCO2 41.8 mmHg (35-45) 05/13/24 21:38 ABG pO2 91.9 mmHg (80.0-100.0) 05/13/24 21:38 ABG HCO3 27.1 mmol/L (22-26) H 05/13/24 21:38 ABG O2 Saturation 98.4 05/13/24 21:38 ABG Base Excess 2.4 mmol/L (-2.0-2.0) H 05/13/24 21:38 Gavin Test Pos 05/13/24 21:38 A-a O2 Gradient 0.7 mmHg (5-10) L 05/13/24 21:38 Hematocrit 38.2 % (37-47) 05/13/24 21:38 Hgb O2 Saturation 96.9 % (95-100) 05/13/24 21:38 Carboxyhemoglobin 1.4 %THgb (0.4-20.1) 05/13/24 21:38 Methemoglobin 0.2 % (0.4-1.5) L 05/13/24 21:38 Total Hemoglobin 12.5 g/dL (12-16) 05/13/24 21:38 Sodium 142.0 mmol/L (131-143) 05/13/24 21:38 Potassium 3.9 mmol/L (3.5-5.0) 05/13/24 21:38 Glucose 81.0 mg/dL (70-115) 05/13/24 21:38 Ionized Calcium 1.1 mmol/L (1.1-1.4) 05/13/24 21:38 O2 Delivery Device Nc 05/13/24 21:38 O2 Liters/Min 3.0 % 05/13/24 21:38 Pipe Finisher ID Jose 05/13/24 21:38 Sodium 139 mmol/L (136-145) 05/13/24 21:30 Potassium 4.1 mmol/L (3.5-5.1) 05/13/24 21:30 Chloride 102 mmol/L (98-107) 05/13/24 21:30 Carbon Dioxide 24 mmol/L (22-29) 05/13/24 21:30 Anion Gap 17.1 (5-19) 05/13/24 21:30 BUN 9 mg/dL (6-20) 05/13/24 21:30 Creatinine 0.6 mg/dL (0.5-0.9) 05/13/24 21:30 GFR Calculation 105.4 mL/min (90-130) 05/13/24 21: Glucose 82 mg/dL (65-115) 05/13/24 21: Calculated Osmolality 286 mOsm/kg (285-295) 05/13/24 21: Calcium 8.5 mg/dL (8.5-10.5) 05/13/24 21: Magnesium 1.9 mg/dL (1.7-2.3) 05/13/24 21: Total Bilirubin 0.3 mg/dL (0.15-1.2) 05/13/24 21: AST 16 U/L (0-32) 05/13/24 21: ALT 20 U/L (0-33) 05/13/24 21: Alkaline Phosphatase 65 U/L (35-105) 05/13/24 21: Troponin T Baseline 11 ng/L (0-10) H 05/13/24 21: C-Reactive Protein 28.6 mg/L (0.0-4.9) H 05/13/24 21:30 NT-Pro-B Natriuret Pep 232 pg/mL (0-125) H 05/13/24 21:30 Total Protein 7.7 g/dL (6.6-8.7) 05/13/24 21: Albumin 3.6 g/dL (3.5-5.2) 05/13/24 21: Globulin 4.1 g/dL (1.3-4.6) 05/13/24 21:30 Urine Color Yellow (Yellow) 05/13/24 22:47 Urine Appearance Slightly cloudy (CLEAR) 05/13/24 22:47 Urine pH 6 (5-7) 05/13/24 22:47 Ur Specific [place] 1.010 (1.005-1.030) 05/13/24 22:47 Urine Protein Neg (Negative) 05/13/24 22:47 Urine Glucose (UA) Norm (Normal) 05/13/24 22:47 Urine Ketones Negative (Negative) 05/13/24 22:47 Urine Blood Neg (Negative) 05/13/24 22:47 Urine Nitrate Positive (Negative) A 05/13/24 22:47 Urine Bilirubin Neg (Negative) 05/13/24 22:47 Urine Urobilinogen Neg mg/dL (Negative) 05/13/24 22:47 Ur Leukocyte Esterase Negative (Negative) 05/13/24 22:47 Urine RBC 0-4 /hpf (0-2) H 05/13/24 22:47 Urine WBC 5-10 /hpf (0-5) H 05/13/24 22:47 Ur Squamous Epith Cells None /hpf (0-5) 05/13/24 22:47 Amorphous Sediment Not Reportable 05/13/24 22:47 Urine Bacteria 4+ /hpf (NONE) H 05/13/24 22:47 Urine Mucus Trace /hpf 05/13/24 22:47 All radiology interpretation(s) finalized by discharge Discharge Plan Discharge Patient Disposition: Admitted As Inpatient Clinical Impression: Cellulitis of left lower leg, Anasarca, Venous stasis dermatitis, Morbid obesity Condition: Stable Coding Level of Care Code ED It Service Manager for Jojo Marino
[2024-05-13 21:44] LABS: Basophils % 0.3 %; Eosinophils # 0.1 10^3/uL (0.0-0.8); Eosinophils % 0.9 %; Lymphocytes # 1.7 10^3/uL (0.8-4.8); Lymphocytes % 13.2 %; Mean Corpuscular HGB Conc 30.6 g/dL (30-55); Mean Corpuscular Volume 85.2 fl (85-98); Monocytes # 0.8 10^3/uL (0.2-0.9); Monocytes % 6.6 %; Neutrophils # 9.93 10^3/uL (1.8-7.7); Neutrophils % 78.4 %; Nucleated Red Blood Cells % 0 %; Platelet Count 310 10^3/cmm (157-399); Red Blood Count 4.11 10^6/uL (3.85-5.65); Red Cell Distribution Width 15.7 % (12.1-15.1); White Blood Count 12.69 10^3/uL (3.29-11.43)
[2024-05-13 21:47] LABS: ABG PCO2 41.8 mmHg (35-45); ABG PH Result 7.42 (7.35-7.45); Alveolar-Arterial Oxygen Gradi 0.7 mmHg (5-10); Arterial Blood Gas Hematocrit 38.2 % (37-47); Base Excess ABG 2.4 mmol/L (-2.0-2.0); Blood Gas Allen Test Pos; Blood Gas Operator Identificat BUSJA; Blood Gas Sample Site Radial, left; Blood Gas Sample Type Arterial; Carboxyhemoglobin 1.4 %THgb (0.4-20.1); HCO3 ABG 27.1 mmol/L (22-26); HGB O2 Sat 96.9 % (95-100); Ionized Calcium Level - ABG 1.1 mmol/L (1.1-1.4); Methemoglobin 0.2 % (0.4-1.5); Oxygen Device NC; Oxygen Saturation ABG 98.4; PO2 ABG 91.9 mmHg (80.0-100.0); Potassium Level - ABG 3.9 mmol/L (3.5-5.0); Total Hemoglobin 12.5 g/dL (12-16)
[2024-05-13 22:12] LABS: Troponin(5th) Baseline 11 ng/L (0-10)
[2024-05-13 22:15] LABS: Erythrocyte Sedimentation Rate 78 mm/hr (0-15)
[2024-05-13 22:29] LABS: Alanine Aminotransferase 20 U/L (0-33); Albumin Level 3.6 g/dL (3.5-5.2); Alkaline Phosphatase 65 U/L (35-105); Aspartate Amino Transferase 16 U/L (0-32); Blood Urea Nitrogen 9 mg/dL (6-20); C Reactive Protein 28.6 mg/L (0.0-4.9); Calcium 8.5 mg/dL (8.5-10.5); Carbon Dioxide 24 mmol/L (22-29); Creatinine Clr Calc Pharmacy 238.9706; Globulin 4.1 g/dL (1.3-4.6); Glomerular Filtration Rate 105.4 mL/min (90-130); Glucose 82 mg/dL (65-115); Magnesium 1.9 mg/dL (1.7-2.3); NT Pro B Type Natriuretic Pept 232 pg/mL (0-125); Total Bilirubin 0.3 mg/dL (0.15-1.2); Total Protein 7.7 g/dL (6.6-8.7)
[2024-05-13 22:41] LABS: Anion Gap 17.1 (5-19); Chloride 102 mmol/L (98-107); Osmolality Calculated 286 mOsm/kg (285-295); Potassium 4.1 mmol/L (3.5-5.1); Sodium 139 mmol/L (136-145)
[2024-05-13 22:54] VITALS: BP 151/81; PULSE 71; O2SAT 98
[2024-05-13 23:13] LABS: Bilirubin Urine Neg (Negative); Blood Urine Neg (Negative); Glucose Urine UA Norm (Normal); Ketones Urine Negative (Negative); Leukocyte Esterase Urine Negative (Negative); Nitrate Urine Positive (Negative); Protein Urine Neg (Negative); Urine Appearance Slightly Cloudy (CLEAR); Urine Color Yellow (Yellow); Urobilinogen Urine Neg (Negative); pH Urine 6 (5-7)
[2024-05-13 23:14] LABS: Add Urine Culture? Yes; Bacteria Urine 4+ /hpf; Mucus Urine TRACE /hpf; RBC Urine 0-4 /hpf (0-2)
--- NOTE | 2024-05-13 23:14 | ECG_ITS ---
[facility] [place] [facility] Test Date: 2024-05-13 Pat Name: Ziyad Felipe Department: Room: Gender: Female Manager Star: : 1975 Requested By: Emily Granados Order Number: [id number] Conor MD: Suzan Dudley M.D. Measurements Intervals [place] Rate: 77 P: 52 ND: 201 QRS: 33 QRSD: 89 T: 64 QT: 376 QTc: 427 Interpretive Statements SINUS RHYTHM Compared to ECG 05/13/2024 21:41:43 Sinus arrhythmia no longer present Electronically Signed On 05-14-2024 11:46:12 CDT by Suzan Dudley M.D. [id number]
--- NOTE | 2024-05-13 23:14 | P.HP_ITS ---
Providers/Chief Complaint 2 Primary Care Provider: Susannah Cruz MD Chief Complaint: Sob\Penumonia\Cant get up and down History of Present Illness Ziyad Felipe is a 49 year old female with history of diastolic CHF, lymphedema, venous stasis dermatitis, was getting home health care for her wound care presenting today with chief complaint of worsening of lower extremity swelling, weight gain, shortness of breath. Patient is stating that at baseline she uses BiPAP at nighttime and uses 2 to 3 L of oxygen during the day. She lives with her son who sometimes helps her with wound care but he is also disabled. Patient has not been using lymphedema wraps lately. She eats at [employer] 4-5 times a month. She is not complaining of active chest pain fever nausea vomiting or diarrhea but stating that Bumex 2 mg is not working for her anymore. Patient stating that she tries to watch her sodium and fluid intake In the ER she has been diagnosed with cellulitis of left lower extremity Diastolic CHF exacerbation She has been given IV Lasix, Brumfield catheter placed Review of Systems 2 Const: Reports: change in weight; Denies: fever(s) Eyes: Denies: change in vision ENMT: Denies: throat pain Card: Reports: swelling of feet/ankles; Denies: chest pain Resp: Reports: dyspnea GI: Denies: abdominal pain : Denies: flank pain Musc: Reports: extremity pain Medications/Allergies Home Medications Medication Instructions Recorded Confirmed Last Taken Type hydrocodone 10 mg-acetaminophen 1 tab PO QID pain 30 days #120 tabs 02/08/22 02/03/24 Unknown Rx 325 mg tablet naloxone 4 mg/actuation nasal spray 4 mg intranasal Q2M #2 ea 02/08/22 02/03/24 Unknown Rx tramadol 50 mg tablet 50 mg PO TID PRN Pain 12/30/22 02/03/24 12/30/22 History 00:30 bacitracin 500 unit/gram topical 1 applic topical Q12H #28 grams 01/01/23 02/03/24 Unknown Rx ointment compression socks, x-large #2 ea 01/01/23 02/03/24 Unknown Rx (LifestyleComfort Socks X-Large) esomeprazole magnesium 40 mg 40 mg PO BID #60 caps 01/13/23 02/03/24 Unknown Rx capsule,delayed release (Nexium) cephalexin 500 mg capsule 500 mg PO TID 10 days #30 caps 02/24/02/03/24 Unknown Rx levofloxacin 750 mg tablet 750 mg PO DAILY 5 days #5 tabs 10/08/23 02/03/24 Unknown Rx prednisone 20 mg tablet 40 mg (2 x 20 mg) PO DAILY 5 days 10/08/23 02/03/24 Unknown Rx #10 tabs pregabalin 50 mg capsule 50 mg PO TID #90 caps 01/02/24 02/03/24 Unknown Rx lidocaine HCl 2 % mucosal solution 1 applic mucous membrane BID #100 01/13/24 02/03/24 Unknown Rx (Lidocaine Viscous) mL valacyclovir 1 gram tablet 2,000 mg (2 x 1 gram) PO .COMPLEX 01/13/24 02/03/24 Unknown Rx (Valtrex) #4 tabs oxygen at 2L per nasal canula #1 ea 02/03/24 02/03/24 Unknown Rx amlodipine 10 mg tablet (Norvasc) 10 mg PO DAILY #30 tabs 02/05/24 Unknown Rx potassium chloride 20 mEq 20 meq PO DAILY #60 tabs 02/05/24 Unknown Rx tablet,extended release prenat.vits,zayra,kgx-wija-iuxri 1 tab PO DAILY #30 tabs 02/05/24 Unknown Rx budesonide-formoterol HFA 160 See Rx Instructions .Route 03/02/24 Unknown Rx mcg-4.5 mcg/actuation aerosol .COMPLEX #10.2 grams inhaler (Symbicort) ondansetron HCl 4 mg tablet See Rx Instructions .Route 03/08/24 Unknown Rx .COMPLEX #30 tabs bumetanide 2 mg tablet 2 mg PO DAILY #120 tabs 04/05/24 Unknown Rx tizanidine 4 mg tablet 4 mg PO TID PRN Muscle Spasm #90 04/05/24 Unknown Rx tabs albuterol sulfate 90 mcg/actuation See Rx Instructions .Route 04/30/24 Unknown Rx aerosol inhaler (Ventolin HFA) .COMPLEX #18 grams solifenacin 10 mg tablet See Rx Instructions .Route 04/30/24 Unknown Rx .COMPLEX #90 tabs sucralfate 1 gram tablet See Rx Instructions .Route 04/30/24 Unknown Rx .COMPLEX #90 tabs trazodone 50 mg tablet See Rx Instructions .Route 04/30/24 Unknown Rx .COMPLEX #30 tabs Allergies Allergy/AdvReac Type Severity Reaction Status Date / Time red dye Allergy Intermediate rash Verified 05/13/24 19:20 amoxicillin [From Augmentin] Allergy HIVES AND Verified 05/13/24 19:20 ITCHING clavulanic acid Allergy HIVES AND Verified 05/13/24 19:20 [From Augmentin] ITCHING meperidine [From Demerol] Allergy HIVES, Verified 05/13/24 19:20 ITCHING AND SHORTNESS OF BREATH Augmentin Allergy Unknown rash Uncoded 05/13/24 19:20 PFSH Acute 2 PFSH: Medical History Acute diastolic heart failure Cellulitis Bilateral lower leg cellulitis Obesity hypoventilation syndrome Accelerated hypertension Smokes cigarettes Lower limb ulcer, ankle Lymphedema associated with obesity Polycystic ovarian syndrome Longstanding diagnosis, dating back to 2003. Has been on and off treatment for many years. LAURA (obstructive sleep apnea) Morbid obesity Hypertension Osteoarthritis of knees, bilateral Chronic low back pain with left-sided sciatica > 50% of 45 min visit counseling patient regarding weight. Encounter for long-term opiate analgesic use Current every day smoker Degeneration of intervertebral disc of cervical spine without disc herniation Arthralgia of cervical spine Surgical History S/P total abdominal hysterectomy (08/01/20) With RSO. Performed by Dr. Deshpande at [facility] in [place], [place]. Path showed polyp with complex hyperplasia with atypia Status post hysteroscopy (~05/09/20) Hysteroscopy with dilation and curettage with Dr. Paul Deshpande at [facility] History of laparoscopic cholecystectomy (~1993) History of D&C (~09/2003) History of laparoscopy (09/21/18) Dx: Small bowel obstruction. Lysis of adhesions. Performed by Dr. Yee at [facility]. History of left salpingo-oophorectomy (01/15/06) Laparotomy. Performed by Dr. Lovelace at [facility]. 10 cm left adnexal cystic mass. History of bariatric surgery (~2016) Laparoscopic gastric sleeve. H/O bariatric surgery (09/14/12) Laparoscopic band. H/O section 12/21/1991, 12/14/1993, 04/17/1995. Family History Father Diabetes Hypertension Social History Smoking and tobacco/nicotine status: never used tobacco/nicotine Alcohol intake: never Substance/Drug Use: never Vitals/I&O/Wt Last Vital Signs Temp 98.1 F 05/13/24 19:16 Pulse 71 05/13/24 22:54 Resp 20 H 05/13/24 19:16 BP 151/81 05/13/24 22:54 Pulse Ox 98 05/13/24 22:54 O2 Del Method Nasal Cannula 05/13/24 22:54 Weight last 48 hrs Weight 234.961 kg Physical Exam 2 Narrative: Diastolic CHF features present Nonfocal neuroexam Pleasant cooperative Morbidly obese Currently on 2 L Bilateral lower extremity venous stasis dermatitis with lymphedema Cellulitis with blistering noted of left lower extremity No sign of vascular compromise Skin excoriation noted Brumfield catheter in place S1, S2 No audible stridor or wheezing Urinary Catheter Management: Brumfield: Cath Placed During This Visit: yes Urinary Catheter Date of Insertion: 05/13/24 Urinary Catheter Time of Insertion: 22:57 Data 05/13/24 21:30 05/13/24 21:30 A&P Assessment and plan (1) Venous stasis dermatitis: (2) Acute diastolic heart failure: (3) Hypertension: Qualifiers: Hypertension type: primary hypertension Qualified Code(s): I10 - Essential (primary) hypertension (4) Morbid obesity: (5) Cellulitis of left lower leg: (6) Anasarca: (7) Lymphedema: (8) Current every day smoker: Plan Acute diastolic CHF exacerbation I will start her on 2 mg IV Bumex along metolazone Place Brumfield catheter Target diuresis for up to 2 L/day watch for contraction of oxygen Daily supplementation for potassium check magnesium, continue magnesium supplementation No active chest pain Requested D-dimer Serial troponin EKG Patient still eats 4-5 times at [employer] in a month Sleep apnea, pickwickian syndrome Patient uses BiPAP at night and uses 2 L of oxygen during the day No acute worsening or any sign of respiratory failure Cellulitis of lower extremity noted Blistering noted as well history of MRSA in the past Start doxycycline and ceftriaxone no active sign of sepsis Patient will need lymphedema wraps Outpatient she will need extensive wound care management and frequent lymphedema wrap nurse care Full code Cardiac diet DVT prophylaxis Lovenox will add 30 mg every 12 hours secondary to high BMI Attestations 2 Medical Necessity Statement*: More than 2 midnights anticipated Diagnoses Venous stasis dermatitis I87.2 Acute diastolic heart failure I50.31 Primary hypertension I10 Hypertension type: primary hypertension Morbid obesity E66.01 Cellulitis of left lower leg L03.116 Anasarca R60.1 Lymphedema I89.0 Current every day smoker F17.200
[2024-05-13] MEDS: FUROsemide 10 mg/mL SDV 10mL 80 MG IVP (23:27)
[2024-05-13 23:30] VITALS: BP 155/103
[2024-05-13 23:32] VITALS: BP 146/74; PULSE 81; O2SAT 100
[2024-05-14] VITALS (12 sets, daily range): BP systolic 122–165; BP diastolic 65–90; PULSE 72–90; RESP 15–24; TEMP 36.4–37.3; O2SAT 91–99; BMI 72.2
[2024-05-14 00:06] LABS: Troponin 5 2HR 10.67 ng/L (0-10); Troponin 5 2HR Delta -0.33 ABS# (0-10)
[2024-05-14] MEDS: tizanidine 4 mg Tablet PO (00:06)
--- NOTE | 2024-05-14 00:16 | PC.NURSE ---
Patient report was called Faustino HERNANDEZ. All questions and concerns were addressed at time of report.
[2024-05-14] MEDS: enoxaparin 30 mg/0.3 mL Syringe SUBCUT ×2 (01:32→14:49)
[2024-05-14] MEDS: HYDROcodone-acetaminophen 10-325 mg Tablet 1 TAB PO ×4 (02:06→20:45)
[2024-05-14 03:53] LABS: Basophils % 0.4 %; Eosinophils # 0.1 10^3/uL (0.0-0.8); Eosinophils % 1.1 %; Hematocrit 31.7 % (36-47); Lymphocytes # 1.6 10^3/uL (0.8-4.8); Lymphocytes % 15.9 %; Mean Corpuscular HGB Conc 30.6 g/dL (30-55); Mean Corpuscular Hemoglobin 26.4 pg (27-33); Mean Corpuscular Volume 86.1 fl (85-98); Mean Platelet Volume 8.6 fL (7.4-10.4); Monocytes # 0.7 10^3/uL (0.2-0.9); Monocytes % 6.8 %; Neutrophils # 7.61 10^3/uL (1.8-7.7); Neutrophils % 75.4 %; Nucleated Red Blood Cells % 0 %; Platelet Count 259 10^3/cmm (157-399); Red Blood Count 3.68 10^6/uL (3.85-5.65); Red Cell Distribution Width 15.8 % (12.1-15.1)
--- NOTE | 2024-05-14 04:04 | ECG_ITS ---
[facility] Test Date: 2024-05-14 Pat Name: Ziyad Felipe Department: Room: 261 Gender: Female Corporate Real Estate Manager: : 1975 Requested By: Emily Granados Order Number: [id number] Conor MD: Suzan Dudley M.D. Measurements Intervals [place] Rate: 72 P: 30 WI: 200 QRS: 34 QRSD: 106 T: 50 QT: 407 QTc: 447 Interpretive Statements SINUS RHYTHM Compared to ECG 05/13/2024 23:26:14 No significant changes Electronically Signed On 05-14-2024 11:44:19 CDT by Suzan Dudley M.D. [email or web address] systemPikanotek[facility] limaSafeTool/store/[id number]
[2024-05-14 04:20] LABS: Troponin 5 6HR 10.14 ng/L (0-10)
[2024-05-14 04:22] LABS: Troponin 5 6HR Delta -0.86 ng/L (0-12)
[2024-05-14 04:27] LABS: Anion Gap 12.9 (5-19); Blood Urea Nitrogen 9 mg/dL (6-20); Calcium 8.3 mg/dL (8.5-10.5); Carbon Dioxide 29 mmol/L (22-29); Chloride 105 mmol/L (98-107); Creatinine Clr Calc Pharmacy 238.9706; Glomerular Filtration Rate 105.4 mL/min (90-130); Glucose 127 mg/dL (65-115); Magnesium 1.9 mg/dL (1.7-2.3); Osmolality Calculated 296 mOsm/kg (285-295); Phosphorus 3.8 mg/dL (2.5-4.5); Potassium 3.9 mmol/L (3.5-5.1); Sodium 143 mmol/L (136-145)
[2024-05-14] MEDS: sennosides-docusate Tablet 1 TAB PO (09:07)
[2024-05-14] MEDS: potassium chloride ER 20 mEq Tablet 40 MEQ PO (09:07)
[2024-05-14] MEDS: cefTRIAXone 1,000 MG in sodium chloride 0.9% (plus) 50 ML 100 MG IV (09:07)
[2024-05-14] MEDS: pregabalin 50 mg Capsule PO ×3 (09:07→20:45)
[2024-05-14] MEDS: metOLazone 5 MG Tablet PO (09:07)
[2024-05-14] MEDS: magnesium oxide 400 mg tablet PO (09:07)
[2024-05-14] MEDS: bumetanide 0.25 mg/mL SDV 10 mL 2 MG IVP ×2 (09:08→18:16)
[2024-05-14] MEDS: doxycycline 100 mg Tablet PO ×2 (09:08→18:17)
--- NOTE | 2024-05-14 11:42 | PC.CHAP ---
Pastoral Care Encounter/Spiritual Assessment Type of Contact [] Declined toaster operator visit [] Patient/Family/Request visit [] Outpatient visit [] Follow-up visit [] Physician referral [] Code/Alert [X] Routine visit [] Staff referral [] Actively dying [] Patient sleeping [] Family support [] [X] Out of room [] Palliative care [] [] Receiving care in room [] Pre-surgical visit [] Trauma [] Long length of stay [] ICU visit [] Other: Relational/Emotional Strength [] Patient feels connected with others/family/visitors/staff [] Distress [] Loneliness/isolation [] Abandonment Spirituality of Patient [] Person of Ely [] Attends Evangelical of their [place] [] Believes in Prayer [] Reads Bible or Buddhist materials [] There are Spiritual issues to be addressed Feed Mill Tender Interventions [] Prayer [] Active listening [] Non-anxious presence [] Spiritual/emotional support [] Crisis/trauma care [] Spiritual counseling [] Bereavement support [] Provided bereavement packet [] Provided Bible/devotional materials [] Provided toy/stuffed animal, coloring book to patient or family member [] Provided Communion [] Anointing/Fleming [] Salvation [] Completed spiritual assessment [] Other: Impact on Illness or Injury [] Angry [] Fearful [] Anxious [] Often cries [] Exhaustion [] Unable to work [] Unable to attend faith [] Unable to walk/stand [] Unable to read [] Unable to drive [] Unable to eat/drink [] Unable to sleep [] Unable to be with family [] Patient intubated [] Other: Summary Time spent with patient
--- NOTE | 2024-05-14 11:44 | PC.CHAP ---
Pastoral Care Encounter/Spiritual Assessment Type of Contact [] Declined technical advisor visit [] Patient/Family/Request visit [] Outpatient visit [] Follow-up visit [] Physician referral [] Code/Alert [X] Routine visit [] Staff referral [] Actively dying [] Patient sleeping [] Family support [] [] Out of room [] Palliative care [] [] Receiving care in room [] Pre-surgical visit [] Trauma [] Long length of stay [] ICU visit [] Other: Relational/Emotional Strength [X] Patient feels connected with others/family/visitors/staff [] Distress [] Loneliness/isolation [] Abandonment Spirituality of Patient [] Person of Ely [] Attends Catholic of their [place] [X] Believes in Prayer [] Reads Bible or Bahai materials [] There are Spiritual issues to be addressed [employer] Electrical Person Interventions [X] Prayer [X] Active listening [X] Non-anxious presence [] Spiritual/emotional support [] Crisis/trauma care [] Spiritual counseling [] Bereavement support [] Provided bereavement packet [] Provided Bible/devotional materials [] Provided toy/stuffed animal, coloring book to patient or family member [] Provided Communion [] Anointing/Hermann [] Salvation [] Completed spiritual assessment [] Other: Impact on Illness or Injury [] Angry [] Fearful [] Anxious [] Often cries [] Exhaustion [] Unable to work [] Unable to attend nondenominational [] Unable to walk/stand [] Unable to read [] Unable to drive [] Unable to eat/drink [] Unable to sleep [] Unable to be with family [] Patient intubated [] Other: Summary Time spent with patient 10Min
--- NOTE | 2024-05-14 13:29 | CTR_ITS ---
PROCEDURE INFORMATION: Exam: CTA Chest With Contrast Exam date and time: 05/14/2024 5:37 PM Age: 49 years old Clinical indication: Abnormal findings; Abnormal diagnostic tests; Elevated d-dimer; Shortness of breath; Prior surgery; Surgery date: 6+ months; Surgery type: Gastric band. Gb. Patient HX: SOB with dimer 2.50; Additional info: Assess for pe TECHNIQUE: Imaging protocol: Computed tomographic angiography of the chest with contrast. Exam focused on the arteries. 3D rendering (Not supervised by radiologist): MIP and/or 3D reconstructed images were created by the technologist. Radiation optimization: All CT scans at this facility use at least one of these dose optimization techniques: automated exposure control; mA and/or kV adjustment per patient size (includes targeted exams where dose is matched to clinical indication); or iterative reconstruction. Contrast material: OMNI 350; Contrast volume: 100 ml; Contrast route: INTRAVENOUS (IV); COMPARISON: CR (CHEST, ) 05/13/2024 9:22 PM RADIATION DOSE METRICS: Total DLP (mGy-cm): 616.11 FINDINGS: Limitations: Study is technically limited due to body habitus. Pulmonary arteries: No filling defects in the pulmonary arteries to suggest pulmonary embolism. Aorta: No evidence for aortic aneurysm or aortic dissection. Trachea: Tracheobronchial structures are patent. Lungs: Lungs are clear bilaterally. No pulmonary parenchymal nodules or masses. Pleural spaces: No pneumothorax. No pleural effusion. Heart: Stable moderate enlargement of the heart. Esophagus: The esophagus is unremarkable. Lymph nodes: No lymphadenopathy. Liver: The visualized liver is unremarkable. Pancreas: The visualized pancreas is unremarkable. No pancreatic ductal dilatation. Spleen: The visualized spleen is unremarkable. Adrenal glands: The visualized right and left adrenal glands are unremarkable. Stomach: Patient has had a prior gastric sleeve procedure. Bones/joints: Multilevel degenerative changes of varying severity in the visualized spine. Soft tissues: No acute abnormality in the extrathoracic soft tissues. No acute abnormality in the extrathoracic soft tissues. CT/CT angio chest PE protcl [id number] IMPRESSION: 1. No evidence for pulmonary embolism. 2. No acute cardiopulmonary process. 3. Incidental/nonacute findings are listed in the report.
--- NOTE | 2024-05-14 15:20 | PM.PN ---
Subjective Subjective: No acute interim events since last night. Noted to have an elevated D-dimer. Patient reports that she has had a chronic pneumonia for the past 5 months. In February 2024 she went on supplemental O2. She states that she she has constant expectoration and mucus production. States that she has recently quit smoking. Legs are in a lymphedema wrap today. Medications: Reviewed: Yes Vitals/I&O/Wt Last Vital Signs Temp 98.2 F 05/14/24 12:00 Pulse 85 05/14/24 12:00 Resp 18 05/14/24 12:00 BP 165/71 05/14/24 12:00 Pulse Ox 95 05/14/24 12:00 O2 Del Method Nasal Cannula 05/14/24 08:00 O2 Flow Rate 2 05/14/24 07:08 FiO2 40 05/14/24 03:30 05/14/24 05/14/24 05/14/24 06:59 14:59 22:59 Intake Total 720 / 720 Output Total 3000 / 3000 Balance -3000 / -3000 720 / 720 Weight last 48 hrs Weight 234.961 kg Weight 234.961 kg Weight 234.961 kg Physical Exam Narrative: General: No acute distress, AO x3 HEENT: PERRLA, pupils bilaterally equal and reactive, pallors not present Chest: Normal vesicular breath sounds, no added sounds, equal good air entry bilaterally CVS: S1-S2 regular, no murmurs, no tachycardia, no gallops, no rubs Abdomen: Soft, nontender, no organomegaly, bowel sounds present Neuro: No focal deficits, no facial deformity, AO x3, power 5/5 in all limbs Extremities: Bilateral impressive lymphedema, currently legs are in a lymphedema wrap. Urinary Catheter Management: Brumfield: Cath Placed During This Visit: yes Reason for Continuing Indwelling Catheter: Other Urinary Catheter Date of Insertion: 05/13/24 Urinary Catheter Time of Insertion: 22:57 Data 05/14/24 03:46 05/14/24 03:46 A&P Assessment and plan (1) Venous stasis dermatitis: (2) Acute diastolic heart failure: (3) Hypertension: Qualifiers: Hypertension type: primary hypertension Qualified Code(s): I10 - Essential (primary) hypertension (4) Morbid obesity: (5) Cellulitis of left lower leg: (6) Anasarca: (7) Lymphedema: (8) Current every day smoker: Plan Acute diastolic CHF exacerbation I will start her on 2 mg IV Bumex along metolaz[address] Brumfield catheter Target diuresis for up to 2 L/day watch for contraction of oxygen Daily supplementation for potassium check magnesium, continue magnesium supplementation No active chest pain Requested D-dimer Serial troponin EKG Patient still eats 4-5 times at [employer] in a month Sleep apnea, pickwickian syndrome Patient uses BiPAP at night and uses 2 L of oxygen during the day No acute worsening or any sign of respiratory failure Cellulitis of lower extremity noted Blistering noted as well history of MRSA in the past Start doxycycline and ceftriaxone no active sign of sepsis Patient will need lymphedema wraps Outpatient she will need extensive wound care management and frequent lymphedema wrap nurse care Full code Cardiac diet DVT prophylaxis Lovenox will add 30 mg every 12 hours secondary to high BMI Plan for today May 14, 2024. Continue IV diuresis with Bumex 2 mg IV every 8 hours. Monitor MADI's and urine output. D-dimer elevated. Will request CTA of the chest to evaluate for PE. Patient complains of persistent pneumonia , she describes this as a feeling of shortness of breath, persistent expectoration over the past 3 to 4 months. Discussed with her that it is highly unlikely that pneumonia would persist for this long especially when she has been treated with appropriate antibiotics. Given h/o chronic smoking, would evaluate for alternate etiology including PE, pleural effusion, lung mass. Attestations Medical Necessity Statement*: continued stay for iv diuresis, iv abx for cellulitis , CT imaging Coding Level of Care Code Acute Code for Chg Fwd Diagnoses Venous stasis dermatitis I87.2 Acute diastolic heart failure I50.31 Primary hypertension I10 Hypertension type: primary hypertension Morbid obesity E66.01 Cellulitis of left lower leg L03.116 Anasarca R60.1 Lymphedema I89.0 Current every day smoker F17.200
[2024-05-14] MEDS: TRAMadol 50 mg Tablet PO (18:17)
[2024-05-14] MEDS: ipratropium-albuterol 3 mL Neb INHALATION (19:40)
[2024-05-14] MEDS: trazodone 50 mg Tablet PO (20:45)
[2024-05-14] MEDS: bacitracin ointment Pkt 1 EACH TOPICAL (20:46)
[2024-05-15] VITALS (11 sets, daily range): BP systolic 121–152; BP diastolic 65–84; PULSE 76–107; RESP 16–24; TEMP 36.6–37.2; O2SAT 91–97
[2024-05-15] MEDS: acetaminophen 500 mg Tablet PO (00:55)
[2024-05-15] MEDS: enoxaparin 30 mg/0.3 mL Syringe SUBCUT ×2 (00:56→15:03)
[2024-05-15] MEDS: bumetanide 0.25 mg/mL SDV 10 mL 2 MG IVP ×3 (00:56→17:04)
[2024-05-15] MEDS: HYDROcodone-acetaminophen 10-325 mg Tablet 1 TAB PO ×3 (01:37→15:03)
[2024-05-15] MEDS: ipratropium-albuterol 3 mL Neb INHALATION ×4 (02:30→20:09)
[2024-05-15] MEDS: tizanidine 4 mg Tablet PO ×3 (03:29→21:30)
[2024-05-15 04:08] LABS: Basophils % 0.4 %; Eosinophils # 0.1 10^3/uL (0.0-0.8); Eosinophils % 1.4 %; Lymphocytes # 1.7 10^3/uL (0.8-4.8); Lymphocytes % 20.1 %; Mean Corpuscular HGB Conc 29.7 g/dL (30-55); Mean Corpuscular Hemoglobin 25.5 pg (27-33); Mean Corpuscular Volume 85.9 fl (85-98); Mean Platelet Volume 9.4 fL (7.4-10.4); Monocytes # 0.8 10^3/uL (0.2-0.9); Monocytes % 9.2 %; Neutrophils # 5.75 10^3/uL (1.8-7.7); Neutrophils % 68.5 %; Nucleated Red Blood Cells % 0 %; Platelet Count 298 10^3/cmm (157-399); Red Blood Count 4.19 10^6/uL (3.85-5.65); Red Cell Distribution Width 15.8 % (12.1-15.1); White Blood Count 8.39 10^3/uL (3.29-11.43)
[2024-05-15 04:27] LABS: Alanine Aminotransferase 19 U/L (0-33); Albumin Level 3.6 g/dL (3.5-5.2); Alkaline Phosphatase 63 U/L (35-105); Anion Gap 13.5 (5-19); Aspartate Amino Transferase 27 U/L (0-32); Blood Urea Nitrogen 7 mg/dL (6-20); Calcium 9.1 mg/dL (8.5-10.5); Carbon Dioxide 37 mmol/L (22-29); Chloride 94 mmol/L (98-107); Globulin 4.6 g/dL (1.3-4.6); Glomerular Filtration Rate 88.2 mL/min (90-130); Glucose 103 mg/dL (65-115); Osmolality Calculated 290 mOsm/kg (285-295); Potassium 3.5 mmol/L (3.5-5.1); Sodium 141 mmol/L (136-145); Total Bilirubin 0.6 mg/dL (0.15-1.2); Total Protein 8.2 g/dL (6.6-8.7)
[2024-05-15] MEDS: cefTRIAXone 1,000 MG in sodium chloride 0.9% (plus) 50 ML 100 MG IV (09:30)
[2024-05-15] MEDS: magnesium oxide 400 mg tablet PO (09:32)
[2024-05-15] MEDS: doxycycline 100 mg Tablet PO ×2 (09:33→17:04)
[2024-05-15] MEDS: potassium chloride ER 20 mEq Tablet 40 MEQ PO (09:33)
[2024-05-15] MEDS: amlodipine 10 mg Tablet PO (09:33)
[2024-05-15] MEDS: pregabalin 50 mg Capsule PO ×3 (09:33→21:30)
[2024-05-15] MEDS: sennosides-docusate Tablet 1 TAB PO (09:33)
[2024-05-15] MEDS: bacitracin ointment Pkt 1 EACH TOPICAL ×3 (09:33→21:32)
--- NOTE | 2024-05-15 15:48 | P.PN_ITS ---
Subjective 2 Subjective: CTA chest without PE or pneumonia, net negative 12L Medications: Reviewed: Yes Vitals/I&O/Wt Last Vital Signs Temp 98 F 05/15/24 12:00 Pulse 76 05/15/24 13:45 Resp 16 05/15/24 13:35 BP 149/84 05/15/24 12:00 Pulse Ox 96 05/15/24 13:35 O2 Del Method Nasal Cannula 05/15/24 13:35 O2 Flow Rate 2 05/15/24 13:35 FiO2 40 05/15/24 03:02 05/15/24 05/15/24 05/15/24 06:59 14:59 22:59 Intake Total 530 / 530 Output Total 5325 / 16538 1500 / 1500 Balance -5325 / -86705 -970 / -970 Weight last 48 hrs Weight 234.961 kg Weight 234.961 kg Weight 234.961 kg Weight 234.961 kg Physical Exam 2 Narrative: General: No acute distress, AO x3 HEENT: PERRLA, pupils bilaterally equal and reactive, pallors not present Chest: Normal vesicular breath sounds, no added sounds, equal good air entry bilaterally CVS: S1-S2 regular, no murmurs, no tachycardia, no gallops, no rubs Abdomen: Soft, nontender, no organomegaly, bowel sounds present Neuro: No focal deficits, no facial deformity, AO x3, power 5/5 in all limbs Extremities: Bilateral impressive lymphedema, currently legs are in a lymphedema wrap. Urinary Catheter Management: Brumfield: Cath Placed During This Visit: yes Reason for Continuing Indwelling Catheter: Other Urinary Catheter Date of Insertion: 05/13/24 Urinary Catheter Time of Insertion: 22:57 Data 05/15/24 03:05 05/15/24 03:05 Micro: Microbiology 05/14/24 22:35 Gram Stain - Final Sputum - Expectorated Sputum Sputum Culture - Preliminary 05/13/24 22:47 Urine Culture - Preliminary Urine,Clean Catch Gram Negative Rods A&P Assessment and plan (1) Venous stasis dermatitis: (2) Acute diastolic heart failure: (3) Hypertension: Qualifiers: Hypertension type: primary hypertension Qualified Code(s): I10 - Essential (primary) hypertension (4) Morbid obesity: (5) Cellulitis of left lower leg: (6) Anasarca: (7) Lymphedema: (8) Current every day smoker: Plan Acute diastolic CHF exacerbation I will start her on 2 mg IV Bumex along metolaz[address] Place Brumfield catheter Target diuresis for up to 2 L/day watch for contraction of oxygen Daily supplementation for potassium check magnesium, continue magnesium supplementation No active chest pain Requested D-dimer Serial troponin EKG Patient still eats 4-5 times at [employer] in a month Sleep apnea, pickwickian syndrome Patient uses BiPAP at night and uses 2 L of oxygen during the day No acute worsening or any sign of respiratory failure Cellulitis of lower extremity noted Blistering noted as well history of MRSA in the past Start doxycycline and ceftriaxone no active sign of sepsis Patient will need lymphedema wraps Outpatient she will need extensive wound care management and frequent lymphedema wrap nurse care Full code Cardiac diet DVT prophylaxis Lovenox will add 30 mg every 12 hours secondary to high BMI Plan for today May 14, 2024. Continue IV diuresis with Bumex 2 mg IV every 8 hours. Monitor MADI's and urine output. D-dimer elevated. Will request CTA of the chest to evaluate for PE. Patient complains of persistent pneumonia , she describes this as a feeling of shortness of breath, persistent expectoration over the past 3 to 4 months. Discussed with her that it is highly unlikely that pneumonia would persist for this long especially when she has been treated with appropriate antibiotics. Given h/o chronic smoking, would evaluate for alternate etiology including PE, pleural effusion, lung mass. 05/15/24: CTA completed- no PE, pneumonia or pleural effusion. Continue diuresis with Bumex, monitor uein output aand kidney function. LE edema alight better. Plan to remove wraps on friday . urine cx with GNR, pending identification Attestations 2 Medical Necessity Statement*: continued need for iv diuresis and iv abx. Coding Level of Care Code Acute Code for Chg Fwd Diagnoses Venous stasis dermatitis I87.2 Acute diastolic heart failure I50.31 Primary hypertension I10 Hypertension type: primary hypertension Morbid obesity E66.01 Cellulitis of left lower leg L03.116 Anasarca R60.1 Lymphedema I89.0 Current every day smoker F17.200
[2024-05-15] MEDS: trazodone 50 mg Tablet PO (21:29)
[2024-05-16] VITALS (11 sets, daily range): BP systolic 125–160; BP diastolic 67–87; PULSE 70–97; RESP 17–21; TEMP 36.6–37.2; O2SAT 90–98
[2024-05-16] MEDS: enoxaparin 30 mg/0.3 mL Syringe SUBCUT ×2 (01:30→11:47)
[2024-05-16] MEDS: bumetanide 0.25 mg/mL SDV 10 mL 2 MG IVP ×3 (01:30→17:20)
[2024-05-16] MEDS: HYDROcodone-acetaminophen 10-325 mg Tablet 1 TAB PO ×3 (01:31→20:23)
[2024-05-16] MEDS: ipratropium-albuterol 3 mL Neb INHALATION ×4 (01:45→20:03)
[2024-05-16 04:08] LABS: Basophils % 0.4 %; Eosinophils # 0.2 10^3/uL (0.0-0.8); Eosinophils % 1.5 %; Hematocrit 34.3 % (36-47); Lymphocytes # 1.8 10^3/uL (0.8-4.8); Lymphocytes % 17.9 %; Mean Corpuscular HGB Conc 30.9 g/dL (30-55); Mean Corpuscular Hemoglobin 26.2 pg (27-33); Mean Corpuscular Volume 84.9 fl (85-98); Mean Platelet Volume 9.6 fL (7.4-10.4); Monocytes # 0.9 10^3/uL (0.2-0.9); Monocytes % 8.9 %; Neutrophils # 7.05 10^3/uL (1.8-7.7); Nucleated Red Blood Cells % 0 %; Platelet Count 242 10^3/cmm (157-399); Red Blood Count 4.04 10^6/uL (3.85-5.65); Red Cell Distribution Width 15.9 % (12.1-15.1); White Blood Count 9.93 10^3/uL (3.29-11.43)
[2024-05-16 04:36] LABS: Alanine Aminotransferase 21 U/L (0-33); Albumin Level 3.4 g/dL (3.5-5.2); Alkaline Phosphatase 55 U/L (35-105); Anion Gap 12.5 (5-19); Aspartate Amino Transferase 38 U/L (0-32); Blood Urea Nitrogen 11 mg/dL (6-20); Calcium 8.7 mg/dL (8.5-10.5); Carbon Dioxide 37 mmol/L (22-29); Chloride 92 mmol/L (98-107); Globulin 4.2 g/dL (1.3-4.6); Glomerular Filtration Rate 75.6 mL/min (90-130); Glucose 124 mg/dL (65-115); Osmolality Calculated 287 mOsm/kg (285-295); Potassium 3.5 mmol/L (3.5-5.1); Sodium 138 mmol/L (136-145); Total Bilirubin 0.7 mg/dL (0.15-1.2); Total Protein 7.6 g/dL (6.6-8.7)
[2024-05-16] MEDS: magnesium oxide 400 mg tablet PO (10:44)
[2024-05-16] MEDS: doxycycline 100 mg Tablet PO ×2 (10:44→17:20)
[2024-05-16] MEDS: amlodipine 10 mg Tablet PO (10:45)
[2024-05-16] MEDS: pregabalin 50 mg Capsule PO ×3 (10:45→20:23)
[2024-05-16] MEDS: tizanidine 4 mg Tablet PO ×2 (10:45→17:20)
[2024-05-16] MEDS: potassium chloride ER 20 mEq Tablet 40 MEQ PO (10:45)
[2024-05-16] MEDS: sennosides-docusate Tablet 1 TAB PO (10:45)
[2024-05-16] MEDS: cefTRIAXone 1,000 MG in sodium chloride 0.9% (plus) 50 ML 100 MG IV (10:46)
[2024-05-16] MEDS: TRAMadol 50 mg Tablet PO (17:20)
--- NOTE | 2024-05-16 19:31 | P.PN_ITS ---
Subjective 2 Subjective: No acute interim events. No new complaints. Lower extremity edema appears to be improving. Lymphedema wraps will be removed tomorrow to reexamine legs. Afebrile, hemodynamically stable. Medications: Reviewed: Yes Vitals/I&O/Wt Last Vital Signs Temp 97.8 F 05/16/24 16:00 Pulse 97 05/16/24 16:00 Resp 18 05/16/24 16:00 BP 148/87 05/16/24 16:00 Pulse Ox 94 05/16/24 16:00 O2 Del Method Nasal Cannula 05/16/24 16:00 O2 Flow Rate 2 05/16/24 13:19 FiO2 40 05/15/24 03:02 05/16/24 05/16/24 05/16/24 06:59 14:59 22:59 Intake Total 240 / 1250 890 / 890 480 / 1370 Output Total 3000 / 22213 1450 / 1450 1000 / 2450 Balance -2760 / -9700 -560 / -560 -520 / -1080 Weight last 48 hrs Weight 235.142 kg Weight 234.961 kg Physical Exam 2 Narrative: General: No acute distress, AO x3 HEENT: PERRLA, pupils bilaterally equal and reactive, pallors not present Chest: Normal vesicular breath sounds, no added sounds, equal good air entry bilaterally CVS: S1-S2 regular, no murmurs, no tachycardia, no gallops, no rubs Abdomen: Soft, nontender, no organomegaly, bowel sounds present Neuro: No focal deficits, no facial deformity, AO x3, power 5/5 in all limbs Extremities: Bilateral impressive lymphedema, currently legs are in a lymphedema wrap. Urinary Catheter Management: Brumfield: Cath Placed During This Visit: yes Reason for Continuing Indwelling Catheter: Other Urinary Catheter Date of Insertion: 05/13/24 Urinary Catheter Time of Insertion: 22:57 Data 05/16/24 03:22 05/16/24 03:22 Micro: Microbiology 05/14/24 22:35 Gram Stain - Final Sputum - Expectorated Sputum Sputum Culture - Final 05/13/24 22:47 Urine Culture - Final Urine,Clean Catch Escherichia coli A&P Assessment and plan (1) Venous stasis dermatitis: (2) Acute diastolic heart failure: (3) Hypertension: Qualifiers: Hypertension type: primary hypertension Qualified Code(s): I10 - Essential (primary) hypertension (4) Morbid obesity: (5) Cellulitis of left lower leg: (6) Anasarca: (7) Lymphedema: (8) Current every day smoker: Plan Acute diastolic CHF exacerbation I will start her on 2 mg IV Bumex along metolaz[address] Place Brumfield catheter Target diuresis for up to 2 L/day watch for contraction of oxygen Daily supplementation for potassium check magnesium, continue magnesium supplementation No active chest pain Requested D-dimer Serial troponin EKG Patient still eats 4-5 times at [employer] in a month Sleep apnea, pickwickian syndrome Patient uses BiPAP at night and uses 2 L of oxygen during the day No acute worsening or any sign of respiratory failure Cellulitis of lower extremity noted Blistering noted as well history of MRSA in the past Start doxycycline and ceftriaxone no active sign of sepsis Patient will need lymphedema wraps Outpatient she will need extensive wound care management and frequent lymphedema wrap nurse care Full code Cardiac diet DVT prophylaxis Lovenox will add 30 mg every 12 hours secondary to high BMI Plan for today May 14, 2024. Continue IV diuresis with Bumex 2 mg IV every 8 hours. Monitor MADI's and urine output. D-dimer elevated. Will request CTA of the chest to evaluate for PE. Patient complains of persistent pneumonia , she describes this as a feeling of shortness of breath, persistent expectoration over the past 3 to 4 months. Discussed with her that it is highly unlikely that pneumonia would persist for this long especially when she has been treated with appropriate antibiotics. Given h/o chronic smoking, would evaluate for alternate etiology including PE, pleural effusion, lung mass. 05/15/24: CTA completed- no PE, pneumonia or pleural effusion. Continue diuresis with Bumex, monitor uein output aand kidney function. LE edema alight better. Plan to remove wraps on friday . urine cx with GNR, pending identification May 16, 2024. Continue diuresis with Bumex. Urine output and kidney function currently stable. Lower extremity edema improving. Afebrile hemodynamically stable. Lymphedema wraps will be removed on Friday to reassess. Urine culture showing E. coli guerrero susceptible. Wound culture from leg showing group A strep.Both covered with ceftriaxone. Attestations 2 Medical Necessity Statement*: continue iv ceftraixone, iv bumex Coding Level of Care Code Acute Code for Chg Fwd Diagnoses Venous stasis dermatitis I87.2 Acute diastolic heart failure I50.31 Primary hypertension I10 Hypertension type: primary hypertension Morbid obesity E66.01 Cellulitis of left lower leg L03.116 Anasarca R60.1 Lymphedema I89.0 Current every day smoker F17.200
[2024-05-16] MEDS: trazodone 50 mg Tablet PO (20:23)
[2024-05-16] MEDS: bacitracin ointment Pkt 1 EACH TOPICAL (20:34)
[2024-05-17] MEDS: enoxaparin 30 mg/0.3 mL Syringe SUBCUT (01:33)
[2024-05-17] MEDS: bumetanide 0.25 mg/mL SDV 10 mL 2 MG IVP ×2 (01:33→08:35)
[2024-05-17 01:42] VITALS: PULSE 68; RESP 18; O2SAT 96
[2024-05-17] MEDS: ipratropium-albuterol 3 mL Neb INHALATION ×3 (01:42→13:51)
[2024-05-17] MEDS: HYDROcodone-acetaminophen 10-325 mg Tablet 1 TAB PO ×3 (02:23→14:20)
[2024-05-17 04:00] VITALS: BP 110/64; PULSE 80; RESP 18; TEMP 36.8; O2SAT 92
[2024-05-17 06:14] LABS: Basophils # 0.1 10^3/uL (0.0-0.1); Basophils % 0.5 %; Eosinophils # 0.3 10^3/uL (0.0-0.8); Eosinophils % 3.3 %; Hematocrit 34.9 % (36-47); Lymphocytes # 1.8 10^3/uL (0.8-4.8); Lymphocytes % 19.2 %; Mean Corpuscular HGB Conc 30.4 g/dL (30-55); Mean Corpuscular Volume 85.5 fl (85-98); Mean Platelet Volume 9.1 fL (7.4-10.4); Monocytes # 0.9 10^3/uL (0.2-0.9); Monocytes % 9.5 %; Neutrophils # 6.26 10^3/uL (1.8-7.7); Nucleated Red Blood Cells % 0 %; Platelet Count 252 10^3/cmm (157-399); Red Blood Count 4.08 10^6/uL (3.85-5.65); Red Cell Distribution Width 16.1 % (12.1-15.1); White Blood Count 9.36 10^3/uL (3.29-11.43)
[2024-05-17 07:32] VITALS: PULSE 71; RESP 18; O2SAT 96
[2024-05-17 08:00] VITALS: BP 122/71; PULSE 74; RESP 19; TEMP 36.6; O2SAT 96
[2024-05-17] MEDS: magnesium oxide 400 mg tablet PO (08:36)
[2024-05-17] MEDS: sennosides-docusate Tablet 1 TAB PO (08:36)
[2024-05-17] MEDS: amlodipine 10 mg Tablet PO (08:36)
[2024-05-17] MEDS: doxycycline 100 mg Tablet PO (08:36)
[2024-05-17] MEDS: potassium chloride ER 20 mEq Tablet 40 MEQ PO (08:36)
[2024-05-17] MEDS: pregabalin 50 mg Capsule PO ×2 (08:36→14:20)
[2024-05-17] MEDS: cefTRIAXone 1,000 MG in sodium chloride 0.9% (plus) 50 ML 100 MG IV (08:36)
[2024-05-17] MEDS: ondansetron 2 mg/ML SDV 2 mL 4 MG IVP (08:38)
[2024-05-17] MEDS: bacitracin ointment Pkt 1 EACH TOPICAL (09:40)
--- NOTE | 2024-05-17 11:52 | PM.DCS ---
Discharge Providers Date of Admission: 05/13/24 23:43 Date of Discharge: May 17, 2024 Attending Provider at Admission: Branden Sequeira MD Attending Provider at Discharge: Branden Sequeira MD Primary Care Provider: Susannah Cruz MD Diagnoses at Discharge Discharge Diagnosis (1) Venous stasis dermatitis: Status: Acute (2) Acute diastolic heart failure: Status: Acute (3) Hypertension: Status: Acute Qualifiers: Hypertension type: primary hypertension Qualified Code(s): I10 - Essential (primary) hypertension (4) Morbid obesity: Status: Acute (5) Cellulitis of left lower leg: Status: Acute (6) Anasarca: Status: Acute (7) Lymphedema: Status: Acute (8) Current every day smoker: Status: Chronic Reason for Visit Reason for Visit: Sob\[place]\Cant get up and down Hospital Course Hospital Course 49-year female who was admitted for management evaluation of UTI, cellulitis of lower extremities, diastolic CHF exacerbation, lymphedema wraps were applied during hospitalization, patient's urine culture showed E. coli pansensitive, she remained hemodynamically stable, she was given Bumex 2 mg IV every 8 hours for negative fluid balance effect, at the time of discharge I will give her referral for lymphedema wraps outpatient. Wound care clinic won't be able to do it. She will also get cefpodoxime twice a day regimen for 5 days. Patient uses 3 L of oxygen at baseline during the day and uses BiPAP at night at home. Lives with her son. Physical Exam Narrative: Lower extremity lymphedema Cellulitis of lower extremities without significant worsening GCS 15 nonfocal neuroexam S1, S2 Hemodynamic stable Currently on 2 L Urinary Catheter Management: [place]: Cath Placed During This Visit: yes Reason for Continuing Indwelling Catheter: Acute Urinary Retention or Obstruction Urinary Catheter Date of Insertion: 05/13/24 Urinary Catheter Time of Insertion: 22:57 Discharge Data Studies Completed and Pending Completed Studies During Hospitalization Category Date Time Status CTA PE [CT angio chest PE protcl [id number]] Routine Cat Scan 05/14/24 13:29 Completed XR chest 1V portable [id number] Stat Exams 05/13/24 21:13 Completed Pending at discharge Category Date Time Status CMP [Comprehensive Metabolic Panel] AM LABS Lab 05/17/24 05:29 Received Radiology Impressions Chest X-Ray 05/13/24 21:13 IMPRESSION: Cardiomegaly similar to the prior study. Chest CTA 05/14/24 13:29 IMPRESSION: 1. No evidence for pulmonary embolism. 2. No acute cardiopulmonary process. 3. Incidental/nonacute findings are listed in the report. Laboratory Results WBC 9.36 10^3/uL (3.29-11.43) 05/17/24 05:29 RBC 4.08 10^6/uL (3.85-5.65) 05/17/24 05:29 Hgb 10.60 g/dL (11.27-16.99) L 05/17/24 05:29 Hct 34.9 % (36-47) L 05/17/24 05:29 MCV 85.5 fl (85-98) 05/17/24 05:29 MCH 26.0 pg (27-33) L 05/17/24 05:29 MCHC 30.4 g/dL (30-55) 05/17/24 05:29 RDW 16.1 % (12.1-15.1) H 05/17/24 05:29 Plt Count 252 10^3/cmm (157-399) 05/17/24 05:29 MPV 9.1 fL (7.4-10.4) 05/17/24 05:29 Neut % (Auto) 67.0 % 05/17/24 05: Lymph % (Auto) 19.2 % 05/17/24 05:29 [place] % (Auto) 9.5 % 05/17/24 05:29 Eos % (Auto) 3.3 % 05/17/24 05:29 Baso % (Auto) 0.5 % 05/17/24 05:29 Neut # (Auto) 6.26 10^3/uL (1.8-7.7) 05/17/24 05:29 Lymph # (Auto) 1.8 10^3/uL (0.8-4.8) 05/17/24 05:29 [place] # (Auto) 0.9 10^3/uL (0.2-0.9) 05/17/24 05:29 Eos # (Auto) 0.3 10^3/uL (0.0-0.8) 05/17/24 05:29 Baso # (Auto) 0.1 10^3/uL (0.0-0.1) 05/17/24 05:29 Nucleated RBC % (auto) 0 % 05/17/24 05:29 Nucleated RBCs # 0.0 /100WBC 05/17/24 05:29 ESR 78 mm/hr (0-15) H 05/13/24 21:30 D-Dimer 2.50 ug/mLFEU (0-0.59) H 05/13/24 21:30 Specimen Type Arterial 05/13/24 21:38 Sample Site Radial, left 05/13/24 21:38 ABG pH 7.42 (7.35-7.45) 05/13/24 21:38 ABG pCO2 41.8 mmHg (35-45) 05/13/24 21:38 ABG pO2 91.9 mmHg (80.0-100.0) 05/13/24 21:38 ABG HCO3 27.1 mmol/L (22-26) H 05/13/24 21:38 ABG O2 Saturation 98.4 05/13/24 21:38 ABG Base Excess 2.4 mmol/L (-2.0-2.0) H 05/13/24 21:38 Gavin Test Pos 05/13/24 21:38 A-a O2 Gradient 0.7 mmHg (5-10) L 05/13/24 21:38 Hematocrit 38.2 % (37-47) 05/13/24 21:38 Hgb O2 Saturation 96.9 % (95-100) 05/13/24 21:38 Carboxyhemoglobin 1.4 %THgb (0.4-20.1) 05/13/24 21:38 Methemoglobin 0.2 % (0.4-1.5) L 05/13/24 21:38 Total Hemoglobin 12.5 g/dL (12-16) 05/13/24 21:38 Sodium 142.0 mmol/L (131-143) 05/13/24 21:38 Potassium 3.9 mmol/L (3.5-5.0) 05/13/24 21:38 Glucose 81.0 mg/dL (70-115) 05/13/24 21:38 Ionized Calcium 1.1 mmol/L (1.1-1.4) 05/13/24 21:38 O2 Delivery Device Nc 05/13/24 21:38 O2 Liters/Min 3.0 % 05/13/24 21:38 Manager Report ID Jose 05/13/24 21:38 Sodium 138 mmol/L (136-145) 05/16/24 03:22 Potassium 3.5 mmol/L (3.5-5.1) 05/16/24 03:22 Chloride 92 mmol/L (98-107) L 05/16/24 03:22 Carbon Dioxide 37 mmol/L (22-29) H 05/16/24 03:22 Anion Gap 12.5 (5-19) 05/16/24 03:22 BUN 11 mg/dL (6-20) 05/16/24 03:22 Creatinine 0.8 mg/dL (0.5-0.9) 05/16/24 03:22 GFR Calculation 75.6 mL/min (90-130) L 05/16/24 03:22 Glucose 124 mg/dL (65-115) H 05/16/24 03:22 Calculated Osmolality 287 mOsm/kg (285-295) 05/16/24 03:22 Calcium 8.7 mg/dL (8.5-10.5) 05/16/24 03:22 Phosphorus 3.8 mg/dL (2.5-4.5) 05/14/24 03:46 Magnesium 1.9 mg/dL (1.7-2.3) 05/14/24 03:46 Total Bilirubin 0.7 mg/dL (0.15-1.2) 05/16/24 03:22 AST 38 U/L (0-32) H 05/16/24 03:22 ALT 21 U/L (0-33) 05/16/24 03:22 Alkaline Phosphatase 55 U/L (35-105) 05/16/24 03:22 Troponin T Baseline 11 ng/L (0-10) H 05/13/24 21:30 Troponin T 120 Minute 10.67 ng/L (0-10) H 05/13/24 23:27 Delta Troponin T -0.33 ABS# (0-10) L 05/13/24 23:27 Troponin T Hi Sens 6Hr 10.14 ng/L (0-10) H 05/14/24 03:46 Troponin T Hi Sens 6Hr Delta -0.86 ng/L (0-12) L 05/14/24 03:46 C-Reactive Protein 28.6 mg/L (0.0-4.9) H 05/13/24 21:30 NT-Pro-B Natriuret Pep 232 pg/mL (0-125) H 05/13/24 21:30 Total Protein 7.6 g/dL (6.6-8.7) 05/16/24 03:22 Albumin 3.4 g/dL (3.5-5.2) L 05/16/24 03:22 Globulin 4.2 g/dL (1.3-4.6) 05/16/24 03:22 Urine Color Yellow (Yellow) 05/13/24 22:47 Urine Appearance Slightly cloudy (CLEAR) 05/13/24 22:47 Urine pH 6 (5-7) 05/13/24 22:47 Ur Specific Check 1.010 (1.005-1.030) 05/13/24 22:47 Urine Protein Neg (Negative) 05/13/24 22:47 Urine Glucose (UA) Norm (Normal) 05/13/24 22:47 Urine Ketones Negative (Negative) 05/13/24 22:47 Urine Blood Neg (Negative) 05/13/24 22:47 Urine Nitrate Positive (Negative) A 05/13/24 22:47 Urine Bilirubin Neg (Negative) 05/13/24 22:47 Urine Urobilinogen Neg mg/dL (Negative) 05/13/24 22:47 Ur Leukocyte Esterase Negative (Negative) 05/13/24 22:47 Urine RBC 0-4 /hpf (0-2) H 05/13/24 22:47 Urine WBC 5-10 /hpf (0-5) H 05/13/24 22:47 Ur Squamous Epith Cells None /hpf (0-5) 05/13/24 22:47 Amorphous Sediment Not Reportable 05/13/24 22:47 Urine Bacteria 4+ /hpf (NONE) H 05/13/24 22:47 Urine Mucus Trace /hpf 05/13/24 22:47 Vitals Last Vital Signs Temp 97.8 F 05/17/24 08:00 Pulse 74 05/17/24 08:00 Resp 19 H 05/17/24 08:00 BP 122/71 05/17/24 08:00 Pulse Ox 96 05/17/24 08:00 O2 Del Method Nasal Cannula 05/17/24 07:32 O2 Flow Rate 2 05/17/24 07:32 FiO2 40 05/15/24 03:02 Discharge Plan Discharge Patient Disposition: Home Condition: Stable Prescriptions: New doxycycline monohydrate 100 mg Tablet 100 mg PO BID Qty: 10 0RF cefpodoxime 200 mg tablet 200 mg PO BID Qty: 10 0RF Rx Instructions: must administer with a meal/food bacitracin 500 unit/gram Packet 500 unit topical TID Qty: 144 0RF Continued hydrocodone-acetaminophen 10-325 mg tablet 1 tab PO QID 30 Days Qty: 120 0RF Rx Instructions: fill on or after 12/04/21 naloxone 4 mg/actuation spray,non-aerosol 4 mg intranasal Q2M Qty: 2 0RF Rx Instructions: spray 1 dose into ONE nostril; alternate nostrils w each dose until help arrives (DME) oxygen at 2L per nasal canula See Rx Instructions .Route .MEDSUPPLY Qty: 1 0RF Rx Instructions: As directed lidocaine HCl [Lidocaine Viscous] 2 % solution 1 applic mucous membrane BID Qty: 100 0RF pregabalin 50 mg capsule 50 mg PO TID Qty: 90 2RF prenat.vits,zayra,kyc-oatl-hujeu Tablet 1 tab PO DAILY Qty: 30 11RF Norvasc 10 mg tablet 10 mg PO DAILY Qty: 30 3RF Symbicort 160-4.5 mcg/actuation HFA aerosol inhaler See Rx Instructions .ROUTE .COMPLEX Qty: 10.2 2RF Dose Instruction: USE 2 PUFFS TWO TIMES DAILY FOR 2 WEEKS Rx Instructions: USE 2 PUFFS TWO TIMES DAILY FOR 2 WEEKS ondansetron HCl 4 mg tablet See Rx Instructions .ROUTE .COMPLEX Qty: 30 2RF Dose Instruction: TAKE 1 TABLET BY MOUTH EVERY 8 HOURS NEEDED FOR NAUSEA AND VOMITING Rx Instructions: TAKE 1 TABLET BY MOUTH EVERY 8 HOURS NEEDED FOR NAUSEA AND VOMITING tizanidine 4 mg tablet 4 mg PO TID PRN (Reason: Muscle Spasm) Qty: 90 2RF albuterol sulfate [Ventolin HFA] 90 mcg/actuation HFA aerosol inhaler See Rx Instructions .ROUTE .COMPLEX Qty: 18 2RF Dose Instruction: INHALE TWO PUFFS EVERY 4 HOURS NEEDED FOR SHORTNESS OF BREATH OR WHEEZING Rx Instructions: INHALE TWO PUFFS EVERY 4 HOURS NEEDED FOR SHORTNESS OF BREATH OR WHEEZING sucralfate 1 gram tablet See Rx Instructions .ROUTE .COMPLEX Qty: 90 0RF Dose Instruction: TAKE 1 TABLET BY MOUTH THREE TIMES DAILY Rx Instructions: TAKE 1 TABLET BY MOUTH THREE TIMES DAILY solifenacin 10 mg tablet See Rx Instructions .ROUTE .COMPLEX Qty: 90 0RF Dose Instruction: TAKE 1 TABLET BY MOUTH EVERY DAY Rx Instructions: TAKE 1 TABLET BY MOUTH EVERY DAY trazodone 50 mg tablet See Rx Instructions .ROUTE .COMPLEX Qty: 30 0RF Dose Instruction: TAKE 1 TABLET BY MOUTH AT BEDTIME Rx Instructions: TAKE 1 TABLET BY MOUTH AT BEDTIME tramadol 50 mg tablet 50 mg PO TID PRN (Reason: Pain) Rx Instructions: fill on or after 11/04/21 and 12/04/21 bumetanide 2 mg tablet 2 mg PO DAILY Qty: 120 3RF potassium chloride 20 mEq tablet extended release 20 meq PO DAILY Qty: 60 6RF Discharge Orders: Discharge Order (Routine); Ordered 05/17/24 Ordered By: Branden Sequeira Referrals: Susannah Cruz MD [Primary Care Provider] - Discharge Diet: Cardiac Discharge Activity: Increase activity as tolerated Patient Instructions: Opioid Safety Activity Restrictions/Additional Instructions: you will need lymphedema wraps that can be only done by a nurse or a licensed person. I am adding referral for physical therapy you might have to pay [id number] for that. For your UTI and cellulitis adding antibiotics for 7 days. You can keep taking Bumex 2 mg twice a day for 7 days and then switch to 2 mg daily you can increase Bumex dose to 2 mg 3 times a day if you think your swelling and heart failure features are getting worse Please make sure to keep potassium tablets on board whenever you take Bumex You have been getting ceftriaxone you have not developed any allergies or anaphylactic reaction thus far I am giving you cefpodoxime for UTI. Will get doxycycline for your cellulitis. Discharge Attestations Time Spent in Discharge Care*: greater than 30 min Quality Metrics Clinical Quality Measures [ No reported AMI, CVA or VTE this stay] Coding Level of Care Code Acute Code for Chg Fwd Diagnoses Venous stasis dermatitis I87.2 Acute diastolic heart failure I50.31 Primary hypertension I10 Hypertension type: primary hypertension Morbid obesity E66.01 Cellulitis of left lower leg L03.116 Anasarca R60.1 Lymphedema I89.0 Current every day smoker F17.200
[2024-05-17 12:00] VITALS: BP 133/70; PULSE 88; RESP 18; TEMP 36.5; O2SAT 92
[2024-05-17 12:04] LABS: Alanine Aminotransferase 22 U/L (0-33); Albumin Level 3.3 g/dL (3.5-5.2); Alkaline Phosphatase 56 U/L (35-105); Anion Gap 17.6 (5-19); Aspartate Amino Transferase 38 U/L (0-32); Blood Urea Nitrogen 14 mg/dL (6-20); Calcium 8.5 mg/dL (8.5-10.5); Carbon Dioxide 31 mmol/L (22-29); Chloride 92 mmol/L (98-107); Creatinine Clr Calc Pharmacy 204.9407; Globulin 4.3 g/dL (1.3-4.6); Glomerular Filtration Rate 88.2 mL/min (90-130); Glucose 97 mg/dL (65-115); Osmolality Calculated 284 mOsm/kg (285-295); Potassium 3.6 mmol/L (3.5-5.1); Sodium 137 mmol/L (136-145); Total Bilirubin 0.7 mg/dL (0.15-1.2); Total Protein 7.6 g/dL (6.6-8.7)
--- NOTE | 2024-05-17 13:37 | PC.NURSE ---
dc pending referral to wound care
[2024-05-17 13:52] VITALS: PULSE 95; RESP 18; O2SAT 94
== END 2024-05-17 16:01 | disposition home or self-care (01) | DRG 291 ==
LOC: ER 23:20 → MEDSURG 23:43
PROVIDERS: Student in an Organized Health Care Education/Training Program; Admitting Provider Internal Medicine; Emergency Provider Emergency Medicine; PCP Family Medicine; Visit Provider Internal Medicine
DX: I11.0 Hypertensive heart disease with heart failure (principal); I50.33 Acute on chronic diastolic (congestive) heart failure; E66.2 Morbid (severe) obesity with alveolar hypoventilation; L03.116 Cellulitis of left lower limb; N39.0 Urinary tract infection, site not specified; I87.8 Other specified disorders of veins; I89.0 Lymphedema, not elsewhere classified; Z72.0 Tobacco use; Z99.81 Dependence on supplemental oxygen; B96.20 Unspecified Escherichia coli [E. coli] as the cause of diseases classified elsewhere; G89.4 Chronic pain syndrome; Z79.891 Long term (current) use of opiate analgesic; Z86.14 Personal history of Methicillin resistant Staphylococcus aureus infection; Z99.89 Dependence on other enabling machines and devices
CPT/HCPCS: 36415; 36600; 51702; 71045; 71275; 80048; 80051; 80053; 81001; 82330; 82805; 83735; 83880; 84100; 84484; 85025; 85378; 85651; 86140; 87070; 87077; 87086; 87186; 87205; 93005; 94640; 94660; 96372; 96374; 97161; 97167; 97530; 99285; J0696; J1650; J1940; J2405; J3490; Q9967

== ENCOUNTER → 2024-05-21 08:00 | Outpatient (BNVA) | payer MEDICAID, SELFPAY | PROVIDERS: PCP Family Medicine; Visit Provider Thoracic Surgery (Cardiothoracic Vascular Surgery) | DX: I96 Gangrene, not elsewhere classified (principal); I89.0 Lymphedema, not elsewhere classified; L97.821 Non-pressure chronic ulcer of other part of left lower leg limited to breakdown of skin; L97.321 Non-pressure chronic ulcer of left ankle limited to breakdown of skin | CPT/HCPCS: 97597; 97598; 99213 ==

== ENCOUNTER → 2024-05-25 15:50 | Outpatient (BNVA) | payer MEDICAID, SELFPAY | PROVIDERS: PCP Family Medicine; Visit Provider Nurse Practitioner Family | DX: I96 Gangrene, not elsewhere classified (principal); I89.0 Lymphedema, not elsewhere classified; L97.821 Non-pressure chronic ulcer of other part of left lower leg limited to breakdown of skin; L97.321 Non-pressure chronic ulcer of left ankle limited to breakdown of skin | CPT/HCPCS: 29581 ==

== ENCOUNTER → 2024-05-28 09:40 | Outpatient (BNVA) | payer MEDICAID, SELFPAY | PROVIDERS: PCP Family Medicine; Visit Provider Surgery | DX: K21.9 Gastro-esophageal reflux disease without esophagitis (principal); R10.9 Unspecified abdominal pain; R19.8 Other specified symptoms and signs involving the digestive system and abdomen; I89.0 Lymphedema, not elsewhere classified; L97.321 Non-pressure chronic ulcer of left ankle limited to breakdown of skin | CPT/HCPCS: 97597; 99204 ==

== ENCOUNTER → 2024-06-03 14:02 | Outpatient (BNVA) | payer MEDICAID, SELFPAY | PROVIDERS: PCP Family Medicine; Visit Provider Thoracic Surgery (Cardiothoracic Vascular Surgery) | DX: I89.0 Lymphedema, not elsewhere classified (principal); L97.821 Non-pressure chronic ulcer of other part of left lower leg limited to breakdown of skin; Z09 Encounter for follow-up examination after completed treatment for conditions other than malignant neoplasm | CPT/HCPCS: 97597; A6197; A6251 ==

== ENCOUNTER → 2024-06-08 10:55 | Outpatient (BNVA) | payer MEDICAID, SELFPAY | PROVIDERS: PCP Family Medicine; Visit Provider Thoracic Surgery (Cardiothoracic Vascular Surgery) | DX: Z51.89 Encounter for other specified aftercare (principal) | CPT/HCPCS: 29581 ==

== ENCOUNTER → 2024-06-10 14:51 | Outpatient (BNVA) | payer MEDICAID, SELFPAY | PROVIDERS: PCP Family Medicine; Visit Provider Thoracic Surgery (Cardiothoracic Vascular Surgery) | DX: Z09 Encounter for follow-up examination after completed treatment for conditions other than malignant neoplasm (principal); Z87.2 Personal history of diseases of the skin and subcutaneous tissue | CPT/HCPCS: 99212 ==

== ENCOUNTER 2024-06-28 11:48 | Emergency (ER) | payer MEDICARE, MEDICAID, SELFPAY ==
[2024-06-28 12:06] VITALS: BP 155/72; PULSE 92; RESP 18; TEMP 36.8; O2SAT 94; BMI 70.8
--- NOTE | 2024-06-28 13:24 | CT_ITS ---
WS: [id number] CT ABDOMEN AND PELVIS WITH CONTRAST HISTORY: R sided abdominal pain; fevers TECHNIQUE: Imaging performed of the abdomen and pelvis with IV contrast. Single phase imaging of the abdomen. Coronal and sagittal reformats are submitted. All CT scans at [facility] use at [address] [facility] one of these dose optimization techniques: automated exposure control; mA and/or kV adjustment per patient size (includes targeted exams where dose is matched to clinical indication); or iterative re construction. IV CONTRAST: Omnipaque 350; 100 mL IV. Oral contrast: No DLP: 1325.94 mGy.cm COMPARISON: 09/16/2018 Quality of this examination is compromised by patient's body habitus. Lower thorax: Lung bases are clear. Heart is normal size. No hiatal hernia. Significant artifact through the abdomen and pelvis from patient's body habitus. Liver/biliary system: Normal size with no intrahepatic dilatation. Gallbladder: Status post cholecystectomy. Pancreas: Normal size pancreas and pancreatic duct. No adjacent inflammation. Spleen: Normal size spleen. No mass or infarct. Adrenal glands: Normal. Right kidney: Nonobstructing calcifications. There are a few too small to characterize hypodensities in the cortex. Small parapelvic cyst. No ureteral obstruction. Left kidney: Nonobstructing calcifications and parapelvic cysts. No obstruction. Aorta: Normal. Lymphadenopathy: None. Free fluid: None. GI tract: Gastric bypass. No stomach distention. No small bowel obstruction. No appendicitis. Appendi x is very small. Abdominal wall: Ventral abdominal wall hernia. Slight protrusion of the transverse colon through the abdominal wall hernia but there is no obstruction. Pelvis: Prior hysterectomy. No free fluid or adenopathy. Significant artifact in the pelvis from rosemarie ent's body habitus. RIGHT ovary is identified and normal. Bones: Bones are poorly visualized. CT/CT abdomen pelvis w con* [id number] IMPRESSION: 1. Quality this examination is compromised by patient's body habitus. 2. No ascites or adenopathy identified. 3. Prior cholecystectomy. 4. Ventral abdominal wall hernia with no GI tract obstruction. 5. Prior hysterectomy. No colitis identified. 6. Small rudimentary appearing appendix.
--- NOTE | 2024-06-28 13:25 | ED_ITS ---
HPI - Abdominal Pain 2 General: Chief Complaint: Abdominal Pain Stated Complaint: fever, abdominal pain Time Seen by Provider: 06/28/24 13:16 Source: patient Mode of arrival: ambulatory Limitations: no limitations History of Present Illness: Patient is a 49-year-old female who presents to the ER with a complaint of right-sided abdominal pain over the past 3 to 4 days. She states abdominal pain has progressively worsened since onset. She was seen by her primary care provider Dr. Cruz who referred her to the emergency department for concern of acute appendicitis. She reports fevers as high as 103 at home. She is afebrile here upon arrival. States she has not wanted to eat secondary to the pain. No vomiting. She has chronic constipation that reportedly is improving with medication. She states she has upcoming colonoscopy/endoscopy with Dr. Howard. She is not complaining of urinary dysuria, frequency, urgency. She does report decreased urine output and dark urine. She states her urine is always dark. She is not having flank pain. MD elicited complaint: abdominal pain Onset (ago): day(s) Pain Consistency: constant and other (worsening) Location: Other (R sided) Severity: severe Radiation: none Migration to: no migration Exacerbating factors: nothing Relieving factors: nothing Associated Symptoms: Reports chills, constipation (chronic-improving with medication), fever(s) and nausea; Denies dysuria and vomiting Related Data Home Medications Medication Instructions Recorded Confirmed tramadol 50 mg tablet 50 mg PO TID PRN Pain 12/30/22 06/28/24 albuterol sulfate 90 mcg/actuation 2 puff inhalation Q4H PRN 06/28/24 06/28/24 aerosol inhaler (Ventolin HFA) Shortness Of Breath Or Wheezing bacitracin 500 unit/gram topical 500 unit topical TID PRN Skin 06/28/24 06/28/24 packet Irritation budesonide-formoterol HFA 160 2 puff inhalation BID 06/28/24 06/28/24 mcg-4.5 mcg/actuation aerosol inhaler (Symbicort) hydrocodone 10 mg-acetaminophen 1 tab PO QID PRN pain 06/28/24 06/28/24 325 mg tablet lidocaine HCl 2 % mucosal solution 1 applic mucous membrane BID PRN 06/28/24 06/28/24 (Lidocaine Viscous) mouth sores naloxone 4 mg/actuation nasal spray 4 mg intranasal Q2M PRN Opioid 06/28/24 06/28/24 Overdose ondansetron HCl 4 mg tablet 4 mg PO Q8H PRN Nausea And Vomiting 06/28/24 06/28/24 vit no.95-ferrous 1 tab PO DAILY 06/28/24 06/28/24 fumarate 28 mg-folic acid 800 mcg tablet () solifenacin 10 mg tablet 10 mg PO DAILY 06/28/24 06/28/24 sucralfate 1 gram tablet 1 g PO TID 06/28/24 06/28/24 trazodone 50 mg tablet 50 mg PO BEDTIME 06/28/24 06/28/24 Previous Rx's Medication Instructions Recorded pregabalin 50 mg capsule 50 mg PO TID #90 caps 01/02/24 oxygen at 2L per nasal canula #1 ea 02/03/24 amlodipine 10 mg tablet (Norvasc) 10 mg PO DAILY #30 tabs 02/05/24 tizanidine 4 mg tablet 4 mg PO TID PRN Muscle Spasm #90 04/05/24 tabs bumetanide 2 mg tablet 2 mg PO DAILY #120 tabs 05/17/24 potassium chloride 20 mEq 20 meq PO DAILY #60 tabs 05/17/24 tablet,extended release pantoprazole 40 mg tablet,delayed 40 mg PO BID #60 tabs 05/24/24 release polyethylene glycol 3350 17 17 g PO DAILY 30 days #238 grams 05/28/24 gram/dose oral powder (Miralax) Allergies Allergy/AdvReac Type Severity Reaction Status Date / Time red dye Allergy Intermediate rash Verified 06/28/24 12:09 amoxicillin [From Augmentin] Allergy HIVES AND Verified 06/28/24 12:09 ITCHING clavulanic acid Allergy HIVES AND Verified 06/28/24 12:09 [From Augmentin] ITCHING meperidine [From Demerol] Allergy HIVES, Verified 06/28/24 12:09 ITCHING AND SHORTNESS OF BREATH Augmentin Allergy Unknown rash Uncoded 06/28/24 12:09 Review of Systems 2 Const: Reports: fever(s) and chills; Denies: body aches, fatigue or malaise Card: Denies: chest pain Resp: Denies: dyspnea GI: Reports: abdominal pain, nausea and constipation (chronic-improving with medication); Denies: vomiting : Reports: other (reports decreased urination and dark urine); Denies: flank pain, difficulty voiding, dysuria, urinary frequency, urinary urgency, urinary hesitancy or dribbling Musc: Reports: extremity swelling (chronic lymphedema); Denies: neck pain, back pain or joint pain Skin/Breast: Denies: rash Neuro: Denies: headache(s) PFSH ED 2 PFSH: Medical History Morbid obesity Venous stasis dermatitis Anasarca Cellulitis of left lower leg Lymphedema Acute diastolic heart failure Cellulitis Bilateral lower leg cellulitis Obesity hypoventilation syndrome Accelerated hypertension Smokes cigarettes Lower limb ulcer, ankle Lymphedema associated with obesity Polycystic ovarian syndrome Longstanding diagnosis, dating back to 2003. Has been on and off treatment for many years. LAURA (obstructive sleep apnea) Morbid obesity Hypertension Osteoarthritis of knees, bilateral Chronic low back pain with left-sided sciatica > 50% of 45 min visit counseling patient regarding weight. Encounter for long-term opiate analgesic use Current every day smoker Degeneration of intervertebral disc of cervical spine without disc herniation Arthralgia of cervical spine Surgical History S/P total abdominal hysterectomy (08/01/20) With RSO. Performed by Dr. Deshpande at [facility] in [place], [place]. Path showed polyp with complex hyperplasia with atypia Status post hysteroscopy (~05/09/20) Hysteroscopy with dilation and curettage with Dr. Paul Deshpande at [facility] History of laparoscopic cholecystectomy (~1993) History of D&C (~09/2003) History of laparoscopy (09/21/18) Dx: Small bowel obstruction. Lysis of adhesions. Performed by Dr. Yee at [facility]. History of left salpingo-oophorectomy (01/15/06) Laparotomy. Performed by Dr. Lovelace at [facility]. 10 cm left adnexal cystic mass. History of bariatric surgery (~2016) Laparoscopic gastric sleeve. H/O bariatric surgery (09/14/12) Laparoscopic band. H/O section 12/21/1991, 12/14/1993, 04/17/1995. Family History Father Diabetes Hypertension Social History Smoking and tobacco/nicotine status: former use of tobacco/nicotine Alcohol intake: never Substance/Drug Use: never Physical Exam 2 Const: COMMON NORMALS: no acute distress, patient oriented x3 and alert E XAM LIMITATIONS: physical limitations (pt is super morbidly obese with a BMI of over 70) GENERAL APPEARANCE: cooperative Eye: COMMON NORMALS: no scleral icterus Resp: COMMON NORMALS: normal respiratory effort and clear to auscultation bilaterally AUSCULTATION: clear to auscultation bilaterally Cardio: COMMON NORMALS: regular rate and regular rhythm RATE: regular rate RHYTHM: regular rhythm GI: AUSCULTATION: Yes normoactive bowel sounds PALPATION: Yes Tenderness to palpation present (GI), No Guarding due to palpation present (GI) and No Rigid due to palpation OTHER: Exam is significantly hindered due to body habitus-patient is super morbidly obese with a BMI of over 70. Extremely large pannus. : COMMON NORMALS: Yes no CVA tenderness BLADDER/KIDNEY EXAM: Yes no CVA tenderness Back/Pelvis: COMMON NORMALS: no CVA tenderness Extremity: NARRATIVE EXTREMITY EXAM: chronic lymphedema Neuro: COMMON NORMALS: patient oriented x3 SENSORIUM/ORIENTATION: Yes alert Course 2 Vital Signs: Vital signs: Vital Signs Temperature 98.3 F 06/28/24 12:06 Pulse Rate 90 06/28/24 15:38 Respiratory Rate 18 06/28/24 12:06 Blood Pressure 169/80 06/28/24 15:38 Pulse Oximetry 99 06/28/24 15:38 Oxygen Delivery Me thod Room Air 06/28/24 15:00 Oxygen Flow Rate 2 06/28/24 13:30 MDM - Abdominal Pain Medical Decision Making Patient 49-year-old female here for right-sided abdominal pain. She arrives in no acute distress with stable vital signs. She is on 2 L of oxygen which is normal for her. She does not complain of chest pain, shortness of breath, difficulty breathing, or cough. Reporting fevers at home. She is afebrile upon arrival. Physical exam is significantly hindered secondary to her super morbidly obese status. Her BMI is 70.9. Weight of over 500 lbs. Blood work does show a white count of 15.8. Chemistry panel overall is unremarkable. Her UA does not look suspicious for cystitis. CT scan again was compromised secondary to body habitus. They did not identify any emergent or life- threatening etiologies. Very small ventral wall abdominal hernia identified with no obstruction. Will obtain COVID PCR prior to discharge. At this point I do not have any indication for antibiotics. I do recommend she follows up with Dr. Cruz by the end of the week for re-evaluation and possible repeat blood work. Return to ED precautions given. Medical Records I reviewed the patient's medical records. Lab Data I reviewed the patient's lab results. 06/28/24 13:45 06/28/24 13:45 Labs/Radiology: Radiology Impressions Abdomen/Pelvis CT 06/28/24 13:24 IMPRESSION: 1. Quality this examination is compromised by patient's body habitus. 2. No ascites or adenopathy identified. 3. Prior cholecystectomy. 4. Ventral abdominal wall hernia with no GI tract obstruction. 5. Prior hysterectomy. No colitis identified. 6. Small rudimentary appearing appendix. Laboratory Results WBC 15.82 10^3/uL (3.29-11.43) H 06/28/24 13:45 RBC 4.41 10^6/uL (3.85-5.65) 06/28/24 13:45 Hgb 11.60 g/dL (11.27-16.99) 06/28/24 13:45 Hct 37.4 % (36-47) 06/28/24 13:45 MCV 84.8 fl (85-98) L 06/28/24 13:45 MCH 26.3 pg (27-33) L 06/28/24 13:45 MCHC 31.0 g/dL (30-55) 06/28/24 13:45 RDW 16.2 % (12.1-15.1) H 06/28/24 13:45 Plt Count 264 10^3/cmm (157-399) 06/28/24 13:45 MPV 9.3 fL (7.4-10.4) 06/28/24 13:45 Neut % (Auto) 85.4 % 06/28/24 13:45 Lymph % (Auto) 8.2 % 06/28/24 13:45 Grand % (Auto) 4.5 % 06/28/24 13:45 Eos % (Auto) 0.3 % 06/28/24 13:45 Baso % (Auto) 0.3 % 06/28/24 13:45 Neut # (Auto) 13.53 10^3/uL (1.8-7.7) H 06/28/24 13:45 Lymph # (Auto) 1.3 10^3/uL (0.8-4.8) 06/28/24 13:45 Grand # (Auto) 0.7 10^3/uL (0.2-0.9) 06/28/24 13:45 Eos # (Auto) 0.0 10^3/uL (0.0-0.8) 06/28/24 13:45 Baso # (Auto) 0.0 10^3/uL (0.0-0.1) 06/28/24 13:45 Nucleated RBC % (auto) 0 % 06/28/24 13:45 Nucleated RBCs # 0.0 /100WBC 06/28/24 13:45 Sodium 136 mmol/L (136-145) 06/28/24 13:45 Potassium 4.0 mmol/L (3.5-5.1) 06/28/24 13:45 Chloride 98 mmol/L (98-107) 06/28/24 13:45 Carbon Dioxide 25 mmol/L (22-29) 06/28/24 13:45 Anion Gap 17.0 (5-19) 06/28/24 13:45 BUN 11 mg/dL (6-20) 06/28/24 13:45 Creatinine 0.8 mg/dL (0.5-0.9) 06/28/24 13:45 GFR Calculation 75.6 mL/min (90-130) L 06/28/24 13:45 Glucose 116 mg/dL (65-115) H 06/28/24 13:45 Calculated Osmolality 282 mOsm/kg (285-295) L 06/28/24 13:45 Calcium 8.5 mg/dL (8.5-10.5) 06/28/24 13:45 Total Bilirubin 0.8 mg/dL (0.15-1.2) 06/28/24 13:45 AST 18 U/L (0-32) 06/28/24 13:45 ALT 22 U/L (0-33) 06/28/24 13:45 Alkaline Phosphatase 63 U/L (35-105) 06/28/24 13:45 Total Protein 8.1 g/dL (6.6-8.7) 06/28/24 13:45 Albumin 3.7 g/dL (3.5-5.2) 06/28/24 13:45 Globulin 4.4 g/dL (1.3-4.6) 06/28/24 13:45 Lipase 9 U/L (13-60) L 06/28/24 13:45 Urine Color Dark yellow (Yellow) A 06/28/24 13:35 Urine Appearance Clear (CLEAR) 06/28/24 13:35 Urine pH 5.5 (5-7) 06/28/24 13:35 Ur Specific Mckinney 1.024 (1.005-1.030) 06/28/24 13:35 Urine Protein 2+ (Negative) A 06/28/24 13:35 Urine Glucose (UA) Negative (Normal) 06/28/24 13:35 Urine Ketones Trace (Negative) 06/28/24 13:35 Urine Blood Negative (Negative) 06/28/24 13:35 Urine Nitrate Negative (Negative) 06/28/24 13:35 Urine Bilirubin 1+ (Negative) H 06/28/24 13:35 Urine Urobilinogen 1.0 mg/dL (Negative) 06/28/24 13:35 Ur Leukocyte Esterase Trace (Negative) A 06/28/24 13:35 Urine RBC 0-2 /hpf (0-2) 06/28/24 13:35 Urine WBC 0-5 /hpf (0-5) 06/28/24 13:35 Ur Squamous Epith Cells 6-10 /hpf (0-5) 06/28/24 13:35 Amorphous Sediment Not Reportable 06/28/24 13:35 Urine Bacteria None seen /hpf (NONE) 06/28/24 13:35 Hyaline Casts 9.91 /lpf 06/28/24 13:35 All radiology interpretation(s) finalized by discharge Discharge Plan Discharge Patient Disposition: Home Clinical Impression: Abdominal pain Qualifiers: Abdominal location: unspecified location Qualified Code(s): R10.9 - Unspecified abdominal pain Condition: Stable Prescriptions: No Action (DME) oxygen at 2L per nasal canula See Rx Instructions .Route .MEDSUPPLY Qty: 1 0RF Rx Instructions: As directed pantoprazole 40 mg tablet,delayed release (DR/EC) 40 mg PO BID Qty: 60 3RF polyethylene glycol 3350 [Miralax] 17 gram/dose powder 17 g PO DAILY 30 Days Qty: 238 11RF pregabalin 50 mg capsule 50 mg PO TID Qty: 90 2RF Norvasc 10 mg tablet 10 mg PO DAILY Qty: 30 3RF tizanidine 4 mg tablet 4 mg PO TID PRN (Reason: Muscle Spasm) Qty: 90 2RF tramadol 50 mg tablet 50 mg PO TID PRN (Reason: Pain) 28 mg iron- 800 mcg Tablet 1 tab PO DAILY trazodone 50 mg tablet 50 mg PO BEDTIME sucralfate 1 gram tablet 1 g PO TID ondansetron HCl 4 mg tablet 4 mg PO Q8H PRN (Reason: Nausea And Vomiting) hydrocodone-acetaminophen 10-325 mg tablet 1 tab PO QID PRN (Reason: pain) Lidocaine Viscous 2 % solution 1 applic mucous membrane BID PRN (Reason: mouth sores) Ventolin HFA 90 mcg/actuation HFA aerosol inhaler 2 puff inhalation Q4H PRN (Reason: Shortness Of Breath Or Wheezing) bacitracin 500 unit/gram packet 500 unit topical TID PRN (Reason: Skin Irritation) solifenacin 10 mg tablet 10 mg PO DAILY Symbicort 160-4.5 mcg/actuation HFA aerosol inhaler 2 puff inhalation BID naloxone 4 mg/actuation spray,non-aerosol 4 mg intranasal Q2M PRN (Reason: Opioid Overdose) Rx Instructions: spray 1 dose into ONE nostril; alternate nostrils w each dose until help arrives bumetanide 2 mg tablet 2 mg PO DAILY Qty: 120 3RF potassium chloride 20 mEq tablet extended release 20 meq PO DAILY Qty: 60 6RF Discharge Orders: Discharge ED (Routine); Ordered 06/28/24 Ordered By: Bee Martell Referrals: Susannah Cruz MD [Primary Care Provider] - Patient Instructions: Abdominal Pain (ED) Activity Restrictions/Additional Instructions: As we discussed, I did not find an exact etiology for your abdominal discomfort on today's examination. I would like you to follow-up with primary care later this week for reevaluation. You need to return to the emergency department for worsening or severe abdominal pain, repetitive episodes of vomiting, continued fevers, generally feeling worse or unwell, or any other concerns you may have. I hope you begin to feel better soon. Coding Level of Care Code ED Field Sales Engineer for Jojo Marino
[2024-06-28 13:26] VITALS: BP 148/82; PULSE 104; O2SAT 98
[2024-06-28 13:30] VITALS: BP 139/72; PULSE 107; O2SAT 95
[2024-06-28 13:42] LABS: Charge for UA Resulting for Rev
[2024-06-28 13:44] LABS: Bilirubin Urine 1+ (Negative); Blood Urine Negative (Negative); Glucose Urine UA Negative (Normal); Ketones Urine Trace (Negative); Leukocyte Esterase Urine Trace (Negative); Nitrate Urine Negative (Negative); Protein Urine 2+ (Negative); Specific Gravity, Urine 1.024 (1.005-1.030); Urine Appearance Clear (CLEAR); Urine Color Dark Yellow (Yellow); pH Urine 5.5 (5-7)
[2024-06-28 13:46] LABS: Bacteria Urine None Seen /hpf; Hyaline Casts Urine 9.91 /lpf; RBC Urine 0-2 /hpf (0-2); WBC Urine 0-5 /hpf (0-5)
[2024-06-28 13:57] LABS: Basophils % 0.3 %; Eosinophils % 0.3 %; Hematocrit 37.4 % (36-47); Lymphocytes # 1.3 10^3/uL (0.8-4.8); Lymphocytes % 8.2 %; Mean Corpuscular Hemoglobin 26.3 pg (27-33); Mean Corpuscular Volume 84.8 fl (85-98); Mean Platelet Volume 9.3 fL (7.4-10.4); Monocytes # 0.7 10^3/uL (0.2-0.9); Monocytes % 4.5 %; Neutrophils # 13.53 10^3/uL (1.8-7.7); Neutrophils % 85.4 %; Nucleated Red Blood Cells % 0 %; Platelet Count 264 10^3/cmm (157-399); Red Blood Count 4.41 10^6/uL (3.85-5.65); Red Cell Distribution Width 16.2 % (12.1-15.1); White Blood Count 15.82 10^3/uL (3.29-11.43)
[2024-06-28] MEDS: iohexol 350 mg/mL 500 mL Btl (per mL) IV (14:00)
[2024-06-28 14:15] LABS: Alanine Aminotransferase 22 U/L (0-33); Albumin Level 3.7 g/dL (3.5-5.2); Alkaline Phosphatase 63 U/L (35-105); Aspartate Amino Transferase 18 U/L (0-32); Blood Urea Nitrogen 11 mg/dL (6-20); Calcium 8.5 mg/dL (8.5-10.5); Carbon Dioxide 25 mmol/L (22-29); Chloride 98 mmol/L (98-107); Globulin 4.4 g/dL (1.3-4.6); Glomerular Filtration Rate 75.6 mL/min (90-130); Glucose 116 mg/dL (65-115); Lipase 9 U/L (13-60); Osmolality Calculated 282 mOsm/kg (285-295); Sodium 136 mmol/L (136-145); Total Bilirubin 0.8 mg/dL (0.15-1.2); Total Protein 8.1 g/dL (6.6-8.7)
[2024-06-28 15:00] VITALS: BP 158/108; PULSE 99; O2SAT 94
[2024-06-28 15:38] VITALS: BP 169/80; PULSE 90; O2SAT 99
[2024-06-28 17:47] LABS: Adenovirus Not Detected (NOT DETECT); Chlamydia Pneumoniae Not Detected (NOT DETECT); Coronavirus 229E,HKU1,NL63,OC4 Not Detected (NOT DETECT); Human Metapneumovirus Not Detected (NOT DETECT); Human Rhinovirus/Enterovirus Not Detected (NOT DETECT); Influenza A Not Detected (NOT DETECT); Influenza A H1 Not Detected (NOT DETECT); Influenza A H1-2009 Not Detected (NOT DETECT); Influenza A H3 Not Detected (NOT DETECT); Influenza B Not Detected (NOT DETECT); Mycoplasma Pneumoniae Not Detected (NOT DETECT); Parainfluenza Virus Type 1 Not Detected (NOT DETECT); Parainfluenza Virus Type 2 Not Detected (NOT DETECT); Parainfluenza Virus Type 3 Not Detected (NOT DETECT); Parainfluenza Virus Type 4 Not Detected (NOT DETECT); Respiratory Syncytial Virus A Not Detected (NOT DETECT); Respiratory Syncytial Virus B Not Detected (NOT DETECT); SARS-COV-2 Not Detected (NOT DETECT)
== END 2024-06-28 15:39 | disposition home or self-care (01) ==
PROVIDERS: Emergency Provider Physician Assistant; PCP Family Medicine
DX: R10.9 Unspecified abdominal pain (principal); Z87.891 Personal history of nicotine dependence; I11.0 Hypertensive heart disease with heart failure; I50.30 Unspecified diastolic (congestive) heart failure; Z11.52 Encounter for screening for COVID-19
CPT/HCPCS: 74177; 80053; 81003; 81015; 83690; 85025; 87635; 99285; Q9967

== ENCOUNTER 2024-07-21 09:51 | Day surgery (SDC) | payer MEDICARE, MEDICAID, SELFPAY ==
[2024-07-21 10:15] VITALS: BP 166/75; PULSE 76; RESP 16; TEMP 36.4; O2SAT 96
[2024-07-21 10:29] VITALS: BMI 70.9
--- NOTE | 2024-07-21 10:50 | P.ANESASSM_ITS ---
Pre-Anesthetic Assessment Height/Weight: Height 5 ft 11 in Weight 509 lb Preop Diagnosis: Screening colonoscopy Operation Date: 07/21/24 11:00 Proposed Procedures p EGD 80404, 18781, G0105, K21.9, R10.9(Not Applicable) - Mckinley Howard DO s Colonoscopy- 13832 , 95724 , G0105, K21.9, R10.9(Not Applicable) - Mckinley Howard DO Last intake: Intake Last Liquid Date 07/20/24 Last Liquid Time 23:55 Last Solid Date 07/19/24 Last Solid Time 23:30 Social No alcohol Prior tobacco Exam alert, oriented x 3, clear to auscultation bilaterally and regular rate & rhythm Airway Submandibular: within normal limits Cervical ROM: within normal limits Mallampati: Class III Dentition: full Anesthetic Plan ASA status: 3 Anesthesia: MAC Other: No prior issues with anesthesia History of GERD, on Protonix Chronic pain, takes hydrocodone 4 times daily and tramadol BMI 71, on 2 L O2 at baseline Patient has limited mobility, arrives in wheelchair Labs reviewed 06/28/2024 EKG sinus rhythm Plan for MAC anesthetic Medications/Allergies Home Medications Medication Instructions Recorded Confirmed Last Taken Type tramadol 50 mg tablet 50 mg PO TID PRN Pain 12/30/22 07/21/24 07/20/24 History pregabalin 50 mg capsule 50 mg PO TID #90 caps 01/02/24 07/21/24 07/20/24 Rx oxygen at 2L per nasal canula #1 ea 02/03/24 06/28/24 Unknown Rx amlodipine 10 mg tablet (Norvasc) 10 mg PO DAILY #30 tabs 02/05/24 07/21/24 07/20/24 Rx tizanidine 4 mg tablet 4 mg PO TID PRN Muscle Spasm #90 04/05/24 07/21/24 07/20/24 Rx tabs bumetanide 2 mg tablet 2 mg PO DAILY #120 tabs 05/17/24 07/19/24 07/12/24 Rx potassium chloride 20 mEq 20 meq PO DAILY #60 tabs 05/17/24 07/21/24 07/12/24 Rx tablet,extended release pantoprazole 40 mg tablet,delayed 40 mg PO BID #60 tabs 05/24/24 07/21/24 07/20/24 Rx release bacitracin 500 unit/gram topical 500 unit topical TID PRN Skin 06/28/24 07/19/24 07/18/24 History packet Irritation budesonide-formoterol HFA 160 2 puff inhalation BID 06/28/24 07/21/24 07/20/24 History mcg-4.5 mcg/actuation aerosol inhaler (Symbicort) hydrocodone 10 mg-acetaminophen 1 tab PO QID PRN pain 06/28/24 07/21/24 07/21/24 History 325 mg tablet naloxone 4 mg/actuation nasal spray 4 mg intranasal Q2M PRN Opioid 06/28/24 07/19/24 Unknown History Overdose ondansetron HCl 4 mg tablet 4 mg PO Q8H PRN Nausea And Vomiting 06/28/24 07/21/24 07/20/24 History vit no.95-ferrous 1 tab PO DAILY 06/28/24 07/21/24 07/20/24 History fumarate 28 mg-folic acid 800 mcg tablet () solifenacin 10 mg tablet 10 mg PO DAILY 06/28/24 07/21/24 07/20/24 History sucralfate 1 gram tablet 1 g PO TID 06/28/24 07/21/24 07/20/24 History trazodone 50 mg tablet 50 mg PO BEDTIME 06/28/24 07/19/24 07/18/24 History albuterol sulfate 90 mcg/actuation 2 puff inhalation Q4H PRN 07/09/24 07/21/24 07/19/24 Rx aerosol inhaler (Ventolin HFA) Shortness Of Breath Or Wheezing #18 grams Allergies Allergy/AdvReac Type Severity Reaction Status Date / Time red dye Allergy Intermediate rash Verified 07/19/24 14:28 amoxicillin [From Augmentin] Allergy HIVES AND Verified 07/19/24 14:28 ITCHING clavulanic acid Allergy HIVES AND Verified 07/19/24 14:28 [From Augmentin] ITCHING meperidine [From Demerol] Allergy HIVES, Verified 07/19/24 14:28 ITCHING AND SHORTNESS OF BREATH Augmentin Allergy Unknown rash Uncoded 07/19/24 14:28 [facility] Anesthesia Medical History Morbid obesity Venous stasis dermatitis Anasarca Cellulitis of left lower leg Lymphedema Acute diastolic heart failure Cellulitis Bilateral lower leg cellulitis Obesity hypoventilation syndrome Accelerated hypertension Smokes cigarettes Lower limb ulcer, ankle Lymphedema associated with obesity Polycystic ovarian syndrome Longstanding diagnosis, dating back to 2003. Has been on and off treatment for many years. LAURA (obstructive sleep apnea) Morbid obesity Hypertension Osteoarthritis of knees, bilateral Chronic low back pain with left-sided sciatica > 50% of 45 min visit counseling patient regarding weight. Encounter for long-term opiate analgesic use Current every day smoker Degeneration of intervertebral disc of cervical spine without disc herniation Arthralgia of cervical spine Surgical History S/P total abdominal hysterectomy (08/01/20) With RSO. Performed by Dr. Deshpande at [facility] [place] in [place], [place]. Path showed polyp with complex hyperplasia with atypia Status post hysteroscopy (~05/09/20) Hysteroscopy with dilation and curettage with Dr. Paul Deshapnde at [facility] History of laparoscopic cholecystectomy (~1993) History of D&C (~09/2003) History of laparoscopy (09/21/18) Dx: Small bowel obstruction. Lysis of adhesions. Performed by Dr. Yee at [facility]. History of left salpingo-oophorectomy (01/15/06) Laparotomy. Performed by Dr. Lovelace at [facility]. 10 cm left adnexal cystic mass. History of bariatric surgery (~2016) Laparoscopic gastric sleeve. H/O bariatric surgery (09/14/12) Laparoscopic band. H/O section 12/21/1991, 12/14/1993, 04/17/1995. Family History Father Diabetes Hypertension Social History Smoking and tobacco/nicotine status: former use of tobacco/nicotine Alcohol intake: never Substance/Drug Use: never Data Anesthesia Cardiac Studies: Echocardiogram 12/30/22
[2024-07-21] MEDS: sodium chloride 0.9% 1,000 ML 30 ML IV (10:51)
--- NOTE | 2024-07-21 10:56 | P.HP_ITS ---
Providers/Chief Complaint Primary Care Provider: Susannah Cruz MD Chief Complaint: K21.9, R10.9 History of Present Illness Ziyad Felipe is a 49 year old female Review of Systems General: Reports: 10 or more systems reviewed and unremarkable except in HPI and below Medications/Allergies Home Medications Medication Instructions Recorded Confirmed Last Taken Type tramadol 50 mg tablet 50 mg PO TID PRN Pain 12/30/22 07/21/24 07/20/24 History pregabalin 50 mg capsule 50 mg PO TID #90 caps 01/02/24 07/21/24 07/20/24 Rx oxygen at 2L per nasal canula #1 ea 02/03/24 06/28/24 Unknown Rx amlodipine 10 mg tablet (Norvasc) 10 mg PO DAILY #30 tabs 02/05/24 07/21/24 07/20/24 Rx tizanidine 4 mg tablet 4 mg PO TID PRN Muscle Spasm #90 04/05/24 07/21/24 07/20/24 Rx tabs bumetanide 2 mg tablet 2 mg PO DAILY #120 tabs 05/17/24 07/19/24 07/12/24 Rx potassium chloride 20 mEq 20 meq PO DAILY #60 tabs 05/17/24 07/21/24 07/12/24 Rx tablet,extended release pantoprazole 40 mg tablet,delayed 40 mg PO BID #60 tabs 05/24/24 07/21/24 07/20/24 Rx release bacitracin 500 unit/gram topical 500 unit topical TID PRN Skin 06/28/24 07/19/24 07/18/24 History packet Irritation budesonide-formoterol HFA 160 2 puff inhalation BID 06/28/24 07/21/24 07/20/24 History mcg-4.5 mcg/actuation aerosol inhaler (Symbicort) hydrocodone 10 mg-acetaminophen 1 tab PO QID PRN pain 06/28/24 07/21/24 07/21/24 History 325 mg tablet naloxone 4 mg/actuation nasal spray 4 mg intranasal Q2M PRN Opioid 06/28/24 07/19/24 Unknown History Overdose ondansetron HCl 4 mg tablet 4 mg PO Q8H PRN Nausea And Vomiting 06/28/24 07/21/24 07/20/24 History vit no.95-ferrous 1 tab PO DAILY 06/28/24 07/21/24 07/20/24 History fumarate 28 mg-folic acid 800 mcg tablet () solifenacin 10 mg tablet 10 mg PO DAILY 06/28/24 07/21/24 07/20/24 History sucralfate 1 gram tablet 1 g PO TID 06/28/24 07/21/24 07/20/24 History trazodone 50 mg tablet 50 mg PO BEDTIME 06/28/24 07/19/24 07/18/24 History albuterol sulfate 90 mcg/actuation 2 puff inhalation Q4H PRN 07/09/24 07/21/24 07/19/24 Rx aerosol inhaler (Ventolin HFA) Shortness Of Breath Or Wheezing #18 grams Allergies Allergy/AdvReac Type Severity Reaction Status Date / Time red dye Allergy Intermediate rash Verified 07/19/24 14:28 amoxicillin [From Augmentin] Allergy HIVES AND Verified 07/19/24 14:28 ITCHING clavulanic acid Allergy HIVES AND Verified 07/19/24 14:28 [From Augmentin] ITCHING meperidine [From Demerol] Allergy HIVES, Verified 07/19/24 14:28 ITCHING AND SHORTNESS OF BREATH Augmentin Allergy Unknown rash Uncoded 07/19/24 14:28 PFSH Acute PFSH: Medical History Morbid obesity Venous stasis dermatitis Anasarca Cellulitis of left lower leg Lymphedema Acute diastolic heart failure Cellulitis Bilateral lower leg cellulitis Obesity hypoventilation syndrome Accelerated hypertension Smokes cigarettes Lower limb ulcer, ankle Lymphedema associated with obesity Polycystic ovarian syndrome Longstanding diagnosis, dating back to 2003. Has been on and off treatment for many years. LAURA (obstructive sleep apnea) Morbid obesity Hypertension Osteoarthritis of knees, bilateral Chronic low back pain with left-sided sciatica > 50% of 45 min visit counseling patient regarding weight. Encounter for long-term opiate analgesic use Current every day smoker Degeneration of intervertebral disc of cervical spine without disc herniation Arthralgia of cervical spine Surgical History S/P total abdominal hysterectomy (08/01/20) With RSO. Performed by Dr. Deshpande at [facility] in [place], [place]. Path showed polyp with complex hyperplasia with atypia Status post hysteroscopy (~05/09/20) Hysteroscopy with dilation and curettage with Dr. Paul Deshpande at [facility] History of laparoscopic cholecystectomy (~1993) History of D&C (~09/2003) History of laparoscopy (09/21/18) Dx: Small bowel obstruction. Lysis of adhesions. Performed by Dr. Yee at [facility]. History of left salpingo-oophorectomy (01/15/06) Laparotomy. Performed by Dr. Lovelace at [facility]. 10 cm left adnexal cystic mass. History of bariatric surgery (~2016) Laparoscopic gastric sleeve. H/O bariatric surgery (09/14/12) Laparoscopic band. H/O section 12/21/1991, 12/14/1993, 04/17/1995. Family History Father Diabetes Hypertension Social History Smoking and tobacco/nicotine status: former use of tobacco/nicotine Alcohol intake: never Substance/Drug Use: never Vitals/I&O/Wt Last Vital Signs Temp 97.6 F 07/21/24 10:15 Pulse 76 07/21/24 10:15 Resp 16 07/21/24 10:15 BP 166/75 07/21/24 10:15 Pulse Ox 96 07/21/24 10:15 O2 Del Method Room Air 07/21/24 10:15 Weight last 48 hrs Weight 509 lb A&P Assessment and plan (1) GERD without esophagitis: (2) Colon cancer screening: (3) Abdominal pain: Plan EGD and colonoscopy Attestations Medical Necessity Statement*: Home Coding Level of Care Code Acute Code for Chg Fwd Diagnoses GERD without esophagitis K21.9 Colon cancer screening Z12.11 Abdominal pain R10.9
[2024-07-21] MEDS: EPINEPHrine 1 mg/mL INJ XX (11:14)
[2024-07-21 11:39] VITALS: BP 112/69; PULSE 94; RESP 16; TEMP 36.9; O2SAT 98
[2024-07-21 11:54] VITALS: BP 104/66; PULSE 91; RESP 16; O2SAT 95
--- NOTE | 2024-07-21 12:14 | ANE.PACU2 ---
Inpatient post-anesthesia follow up: Vital signs: Temperature 98.5 F Pulse Rate 91 Respiratory Rate 16 Blood Pressure 104/66 Pulse Oximetry 95 Oxygen Delivery Me thod Nasal Cannula Oxygen Flow Rate 2 Fraction of Inspir ed Oxygen
== END 2024-07-21 12:14 | disposition home or self-care (01) ==
PROVIDERS: PCP Family Medicine; Visit Provider Surgery
PROC: 0DJ08ZZ Inspection of Upper Intestinal Tract, Via Natural or Artificial Opening Endoscopic (ICD-10-PCS; CPT 43235; principal; 2024-07-21 11:00)
PROC: 0DJD8ZZ Inspection of Lower Intestinal Tract, Via Natural or Artificial Opening Endoscopic (ICD-10-PCS; CPT 45378; 2024-07-21 11:00)
DX: Z12.11 Encounter for screening for malignant neoplasm of colon (principal); K57.30 Diverticulosis of large intestine without perforation or abscess without bleeding; D12.8 Benign neoplasm of rectum; K29.50 Unspecified chronic gastritis without bleeding; K21.9 Gastro-esophageal reflux disease without esophagitis; G89.29 Other chronic pain; Z99.81 Dependence on supplemental oxygen; E66.01 Morbid (severe) obesity due to excess calories; Z68.45 Body mass index [BMI] 70 or greater, adult; G47.33 Obstructive sleep apnea (adult) (pediatric); E66.9 Obesity, unspecified; Z87.891 Personal history of nicotine dependence
CPT/HCPCS: 43239; 45382; 45385; 88305; J0171; J2250; J2704; J7030

== ENCOUNTER → 2024-08-12 11:19 | Outpatient (BNVA) | payer MEDICARE, MEDICAID, SELFPAY | PROVIDERS: PCP Nurse Practitioner Family; Visit Provider Surgery | DX: Z09 Encounter for follow-up examination after completed treatment for conditions other than malignant neoplasm (principal); K63.5 Polyp of colon; R19.8 Other specified symptoms and signs involving the digestive system and abdomen; K21.9 Gastro-esophageal reflux disease without esophagitis | CPT/HCPCS: 99214 ==

== ENCOUNTER → 2025-02-21 14:44 | Outpatient (BNVA) | payer MEDICARE, MEDICAID, SELFPAY | PROVIDERS: PCP Nurse Practitioner Family; Visit Provider Nurse Practitioner Family | DX: I10 Essential (primary) hypertension (principal); Z79.891 Long term (current) use of opiate analgesic; E55.9 Vitamin D deficiency, unspecified | CPT/HCPCS: 80053; 80061; 82306; 82607; 83036; 84443; 85025 ==

== ENCOUNTER 2025-03-10 15:13 | Inpatient (IN) | payer MEDICARE, MEDICAID, SELFPAY ==
[2025-03-10] VITALS (10 sets, daily range): BP systolic 140–192; BP diastolic 75–99; PULSE 74–87; RESP 15–19; TEMP 36.6; O2SAT 93–98; BMI 69.1
[2025-03-10] MEDS: sodium chloride 0.9% 1,000 ML 999 ML IV (17:25)
[2025-03-10 17:54] LABS: Basophils % 0.4 %; Eosinophils # 0.2 10^3/uL (0.0-0.8); Eosinophils % 2.5 %; Hematocrit 34.4 % (36-47); Lymphocytes # 1.4 10^3/uL (0.8-4.8); Lymphocytes % 16.3 %; Mean Corpuscular HGB Conc 29.7 g/dL (30-55); Mean Corpuscular Volume 84.3 fl (85-98); Mean Platelet Volume 9.8 fL (7.4-10.4); Monocytes # 0.8 10^3/uL (0.2-0.9); Monocytes % 8.8 %; Neutrophils # 6.03 10^3/uL (1.8-7.7); Neutrophils % 70.2 %; Nucleated Red Blood Cells % 0 %; Platelet Count 238 10^3/cmm (157-399); Red Blood Count 4.08 10^6/uL (3.85-5.65); Red Cell Distribution Width 16.3 % (12.1-15.1); White Blood Count 8.57 10^3/uL (3.29-11.43)
[2025-03-10 18:03] LABS: Alanine Aminotransferase 25 U/L (0-33); Albumin Level 3.4 g/dL (3.5-5.2); Alkaline Phosphatase 74 U/L (35-105); Anion Gap 14.2 (5-19); Aspartate Amino Transferase 18 U/L (0-32); Blood Urea Nitrogen 11 mg/dL (6-20); Calcium 8.7 mg/dL (8.5-10.5); Carbon Dioxide 27 mmol/L (22-29); Chloride 104 mmol/L (98-107); Creatinine Clr Calc Pharmacy 229.3742; Globulin 4.4 g/dL (1.3-4.6); Glucose 92 mg/dL (65-115); Osmolality Calculated 291 mOsm/kg (285-295); Potassium 4.2 mmol/L (3.5-5.1); Sodium 141 mmol/L (136-145); Total Bilirubin 0.4 mg/dL (0.15-1.2); Total Protein 7.8 g/dL (6.6-8.7)
[2025-03-10 18:04] LABS: Lactic Sepsis W/Reflex 0.9 mmol/L (0.5-2.2)
[2025-03-10] MEDS: piperacillin-tazobactam 4.5 GM in sodium chloride 0.9% (plus) 50 ML IV (18:15)
--- NOTE | 2025-03-10 18:29 | ED_ITS ---
HPI - Wound/Laceration 2 General: Chief Complaint: Wound/Laceration Stated Complaint: leg infection - fever x 3 days Time Seen by Provider: 03/10/25 17:04 History of Present Illness: 50-year-old female with history of chron ic lymphedema presents to the ED with concerns for Left lower extremity infection. Patient reports her dog scratched her right ankle last Friday. Two days later, she noticed redness and warmth at the site. Subsequently developed fever of 104?F over the weekend. Patient had to travel to [place] in a small van where her legs were compressed, after which she developed a yellow blister that has since ruptured with clear to yellow drainage. The affected area is now red, swollen, and painful. Patient has a history of chronic lymphedema since 2005, stating this is the worst episode she has experienced. She previously received wound care services but was discharged once wounds healed. Last took antipyretics on Friday, with improvement in fever. Reports history of intermittent high fevers that resolve spontaneously. Related Data Home Medications ?Medication ?Instructions ?Recorded ?Confirmed tramadol 50 mg tablet 50 mg PO TID PRN Pain 02/21/25 hydrocodone 10 mg-acetaminophen 1 tab PO QID PRN pain 06/28/24 02/21/25 325 mg tablet naloxone 4 mg/actuation nasal spray 4 mg intranasal Q2 M PRN Opioid 06/28/24 02/21/25 Overdose Previous Rx's ?Medication ?Instructions ?Recorded bumetanide 2 mg tablet 2 mg PO DAILY #120 tabs 05/03 03/26 potassium chloride 20 mEq 20 meq PO DAILY #60 tabs tablet,extended release oxygen at 2L per nasal canula #1 ea 08/23/24 ondansetron HCl 4 mg tablet See Rx Instructions .Route 11/15/24 .COMPLEX #30 tabs pantoprazole 40 mg tablet,delayed See Rx Instructions .Route 11/15/24 release .COMPLEX #60 tabs solifenacin 10 mg tablet See Rx Instructions .Route 0 11/15/24 .COMPLEX #30 tabs albuterol sulfate 90 mcg/actuation See Rx Instructions .Route 11/24/24 aerosol inhaler (Ventolin HFA) .COMPLEX #18 grams pregabalin 50 mg capsule 50 mg PO BID #60 caps tizanidine 4 mg tablet See Rx Instructions .Route 0 01/06/25 .COMPLEX #20 tabs losartan 100 mg tablet See Rx Instructions .Route 0 02/21/25 .COMPLEX #30 tabs trazodone 100 mg tablet See Rx Instructions .Route 0 02/21/25 .COMPLEX #90 tabs cholecalciferol (vitamin D3) 1,250 50,000 unit PO .onc e weekly #12 02/23/25 mcg (50,000 unit) capsule caps budesonide-formoterol HFA 160 See Rx Instructions .Rou te 02/28/25 mcg-4.5 mcg/actuation aerosol .COMPLEX #10.2 grams inhaler (Breyna) vit no.95-ferrous 1 tab PO DAILY #90 tabs 04/27 fumarate 28 mg-folic acid 800 mcg tablet () Allergies Allergy/AdvReac Type Severity Reaction Status Date / Time red dye Allergy Intermediate rash Verified 08/12/24 11:28 amoxicillin (From Augmentin) Allergy HIVES AND Verified 08/12/24 11:28 ITCHING clavulanic acid (From Allergy HIVES AND Verified 08/12/24 11:28 Augmentin) ITCHING meperidine (From Demerol) Allergy HIVES, Verified 08/12/24 11:28 ITCHING AND SHORTNESS OF BREATH PFSH ED 2 PFSH: Medical History Hypertension Morbid obesity Colon polyps Morbid obesity Venous stasis dermatitis Anasarca Cellulitis of left lower leg Lymphedema Acute diastolic heart failure Cellulitis Bilateral lower leg cellulitis Obesity hypoventilation syndrome Accelerated hypertension Smokes cigarettes Lower limb ulcer, ankle Lymphedema associated with obesity Polycystic ovarian syndrome Longstanding diagnosis, dating back to 2003. Has been on and off treatment for many years. LAURA (obstructive sleep apnea) Osteoarthritis of knees, bilateral Chronic low back pain with left-sided sciatica > 50% of 45 min visit counseling patient regarding weight. Encounter for long-term opiate analgesic use Current every day smoker Degeneration of intervertebral disc of cervical spine without disc herniation Arthralgia of cervical spine Surgical History S/P total abdominal hysterectomy (08/01/20) With RSO. Performed by Dr. Deshpande at [facility] [place], [place]. Path showed polyp with complex hyperplasia with atypia Status post hysteroscopy (~05/09/20) Hysteroscopy with dilation and curettage with Dr. Paul Deshpande at [facility] History of laparoscopic cholecystectomy (~1993) History of D&C (~09/2003) History of laparoscopy (09/21/18) Dx: Small bowel obstruction. Lysis of adhesions. Performed by Dr. Yee at [facility] History of left salpingo-oophorectomy (01/15/06) Laparotomy. Performed by Dr. Lovelace at [facility]. 10 cm left adnexal cystic mass. History of bariatric surgery (~2016) Laparoscopic gastric sleeve. H/O bariatric surgery (09/14/12) Laparoscopic band. H/O section 12/21/1991, 12/14/1993, 04/17/1995. Family History Father Diabetes Hypertension Social History Smoking and tobacco/nicotine status: former use of tobacco/nicotine (quit 15 months ago) Alcohol intake: never Substance/Drug Use: never Physical Exam 2 Const: COMMON NORMALS: no acute distress NUTRITIONAL APPEARANCE: obese HENMT: COMMON NORMALS: normocephalic HEAD & SCALP: normocephalic Eye: COMMON NORMALS: EOMs intact bilaterally Resp: COMMON NORMALS: normal respiratory effort and No use of accessory muscles Cardio: COMMON NORMALS: regular rate RATE: regular rate Extremity: NARRATIVE EXTREMITY EXAM: morbidly obese, severe lymphedema bilaterally, cellulitis appearance noted to LLE> Course 2 Vital Signs: Vital signs: Vital Signs Temperature 97.9 F 03/10/25 15:28 Pulse Rate 76 03/10/25 19:00 Respiratory Rate 18 03/10/25 17:31 Blood Pressure 151/82 03/10/25 17:28 Pulse Oximetry 98 03/10/25 19:00 Oxygen Delivery Me thod Room Air 03/10/25 19:00 MDM - Wound/Laceration Medical Decision Making Review of Systems: Constitutional: Positive for fever, resolved Skin: Positive for redness, swelling, drainage All other systems reviewed and negative Medications: None reported Allergies: Augmentin - pruritis Demerol Past Medical History: Congestive Heart Failure Chronic lymphedema Super morbid obesity Past Surgical History: Three sections Cholecystectomy Bowel reconstruction for obstruction Total hysterectomy Oophorectomy with salpingectomy Bariatric sleeve surgery Gastric band removal Social History: Former smoker, quit 14 months ago Family History: No relevant family history reported Vital Signs: Afebrile at time of examination Other vital signs not reported Physical Exam: General: Super morbidly obese female Lower Extremities: - Bilateral severe lymphedema with near elephantiasis appearance - Left LE: Erythema and warmth from mid to distal thigh to foot, with edema - Right LE: Edema present, no cellulitis - Both legs are warm and well-perfused - Right ankle with visible scratch roberson - Areas of drainage and ruptured blister noted Lab Results: Pending Imaging and Other Relevant Results: None reported Medical Decision Making: Summary Statement: 50-year-old female with chronic lymphedema presents with Left lower extremity cellulitis following dog scratch, complicated by fever and local wound drainage. Problem List: 1. Left lower extremity cellulitis, 2. Chronic lymphedema, 3. Super morbid obesity, 4. Congestive heart failure Differential Diagnosis: 1. Cellulitis, 2. Deep vein thrombosis, 3. Lymphangitis, 4. Necrotizing fasciitis, 5. Venous stasis dermatitis ED Course: Patient evaluated, labs pending. Decision made to start broad- spectrum antibiotics and admit for IV antibiotics and management of cellulitis with underlying lymphedema. Assessment and Plan: 1. Left Lower Extremity Cellulitis: - Admit to hospital for IV antibiotics - Start broad-spectrum antibiotics - Elevation of affected extremity 2. Chronic Lymphedema: - Wound care consultation - Consider compression therapy once cellulitis improves 3. Super Morbid Obesity: - Continue current management 4. Congestive Heart Failure: - Continue home medications - Monitor fluid status during admission Patient is a morbidly obese 50-year-old female with cellulitis to the left lower extremity is weeping. Patient was started on broad-spectrum antibiotics with vancomycin and Zosyn. Her labs actually do not look profoundly abnormal. She does not have a significant leukocytosis. Chemistry panel is unremarkable. Despite this given her morbid obesity and the severity of her cellulitis I do think it is reasonable to admit for observation. I spoke with Dr. Peters with the hospitalist service who will admit. Patient was only given 1 L of normal saline out of concern for possible fluid overload. Lab Data I reviewed the patient's lab results. 03/10/25 17:27 03/10/25 17:27 Laboratory Results WBC 8.57 10^3/uL (3.29-11.43) 03/10/25 17: RBC 4.08 10^6/uL (3.85-5.65) 03/10/25 17:27 Hgb 10.20 g/dL (11.27-16.99) L 03/10/25 17:27 Hct 34.4 % (36-47) L 03/10/25 17: MCV 84.3 fl (85-98) L 03/10/25 17: MCH 25.0 pg (27-33) L 03/10/25 17: MCHC 29.7 g/dL (30-55) L 03/10/25 17: RDW 16.3 % (12.1-15.1) H 03/10/25 17: Plt Count 238 10^3/cmm (157-399) 03/10/25 17: MPV 9.8 fL (7.4-10.4) 03/10/25 17:27 Neut % (Auto) 70.2 % 03/10/25 17:27 Lymph % (Auto) 16.3 % 03/10/25 17:27 [place] % (Auto) 8.8 % 03/10/25 17:27 Eos % (Auto) 2.5 % 03/10/25 17: Baso % (Auto) 0.4 % 03/10/25 17: Neut # (Auto) 6.03 10^3/uL (1.8-7.7) 03/10/25 17:27 Lymph # (Auto) 1.4 10^3/uL (0.8-4.8) 03/10/25 17:27 [place] # (Auto) 0.8 10^3/uL (0.2-0.9) 03/10/25 17: Eos # (Auto) 0.2 10^3/uL (0.0-0.8) 03/10/25 17:27 Baso # (Auto) 0.0 10^3/uL (0.0-0.1) 03/10/25 17: Nucleated RBC % (auto) 0 % 03/10/25 17: Nucleated RBCs # 0.0 /100WBC 03/10/25 17:27 Sodium 141 mmol/L (136-145) 03/10/25 17:27 Potassium 4.2 mmol/L (3.5-5.1) 03/10/25 17:27 Chloride 104 mmol/L (98-107) 03/10/25 17:27 Carbon Dioxide 27 mmol/L (22-29) 03/10/25 17:27 Anion Gap 14.2 (5-19) 03/10/25 17:27 BUN 11 mg/dL (6-20) 03/10/25 17:27 Creatinine 0.6 mg/dL (0.5-0.9) 03/10/25 17:27 GFR Calculation 105.0 mL/min (90-130) 03/10/25 17:27 Glucose 92 mg/dL (65-115) 03/10/25 17:27 Calculated Osmolality 291 mOsm/kg (285-295) 03/10/25 17:27 Lactic Acid 0.9 mmol/L (0.5-2.2) 03/10/25 17:27 Calcium 8.7 mg/dL (8.5-10.5) 03/10/25 17:27 Total Bilirubin 0.4 mg/dL (0.15-1.2) 03/10/25 17:27 AST 18 U/L (0-32) 03/10/25 17:27 ALT 25 U/L (0-33) 03/10/25 17:27 Alkaline Phosphatase 74 U/L (35-105) 03/10/25 17:27 Total Protein 7.8 g/dL (6.6-8.7) 03/10/25 17:27 Albumin 3.4 g/dL (3.5-5.2) L 03/10/25 17:27 Globulin 4.4 g/dL (1.3-4.6) 03/10/25 17:27 No radiology studies performed this visit Discharge Plan Discharge Patient Disposition: Placed in Observation Clinical Impression: Cellulitis Coding Level of Care Code ED Show Card Writer for Jojo Marino
[2025-03-10] MEDS: vancomycin 2,000 MG/400 ML PIGGYBACK 200 MG IV (18:44)
--- NOTE | 2025-03-10 19:20 | PM.HP ---
Providers/Chief Complaint Primary Care Provider: ANDRES Hernandez Chief Complaint: leg infection - fever x 3 days History of Present Illness Ziyad Felipe is a 50 year old female with a past medical history significant for lymphedema, congestive heart failure, hypertension, GERD, chronic pain, morbid obesity, cellulitis, sleep apnea, and multiple other comorbidities who presents to the emergency department with worsening redness, swelling and weeping to the left lower extremity. Patient reports symptoms started about 3 to 4 days ago. She states her dog jumped and scratch her left foot around that time. She states following that incident, her foot became red, swollen, and very painful. She states symptoms of progressively worsened. She states that over the weekend she had high fevers to 104. She endorses associated chills. States the pain is so bad she has been on the label to bear weight. She states she can typically take a few steps and use a manual wheelchair at baseline. She endorses a longstanding history of lymphedema. She has previously followed with wound care services. Reports she did take some Tylenol which improved her fevers at home. Denies other alleviating or aggravating factors. In the emergency department, patient was found to have severe lymphedema with weeping each with associated significant cellulitis. She presents for observation admission for IV antibiotics due to the severity of her infection. Review of Systems Narrative: A complete review of systems was obtained and is negative except as stated in HPI. Medications/Allergies Home Medications ?Medication ?Instructions ?Recorded ?Confirmed ?Last Taken ?Type tramadol 50 mg tablet 50 mg PO TID PRN Pain 12/30/22 02/21/25 07/20/24 History bumetanide 2 mg tablet 2 mg PO DAILY #120 tabs 05/17/24 02/21/25 07/12/24 Rx potassium chloride 20 mEq 20 meq PO DAILY #60 tabs 05/17/24 02/21/25 07/12/24 Rx tablet,extended release hydrocodone 10 mg-acetaminophen 1 tab PO QID PRN pain 06/28/24 02/21/25 07/21/24 History 325 mg tablet naloxone 4 mg/actuation nasal spray 4 mg intranasal Q2M PRN Opioid 06/28/24 02/21/25 Unknown History Overdose oxygen at 2L per nasal canula #1 ea 08/23/24 02/21/25 Unknown Rx ondansetron HCl 4 mg tablet See Rx Instructions .Route 11/15/24 02/21/25 Unknown Rx .COMPLEX #30 tabs pantoprazole 40 mg tablet,delayed See Rx Instructions .Route 11/15/24 02/21/25 Unknown Rx release .COMPLEX #60 tabs solifenacin 10 mg tablet See Rx Instructions .Route 11/15/24 02/21/25 Unknown Rx .COMPLEX #30 tabs albuterol sulfate 90 mcg/actuation See Rx Instructions .Route 11/24/24 02/21/25 Unknown Rx aerosol inhaler (Ventolin HFA) .COMPLEX #18 grams pregabalin 50 mg capsule 50 mg PO BID #60 caps 12/09/24 02/21/25 Unknown Rx tizanidine 4 mg tablet See Rx Instructions .Route 01/06/25 02/21/25 Unknown Rx .COMPLEX #20 tabs losartan 100 mg tablet See Rx Instructions .Route 02/21/25 02/21/25 Unknown Rx .COMPLEX #30 tabs trazodone 100 mg tablet See Rx Instructions .Route 02/21/25 02/21/25 Unknown Rx .COMPLEX #90 tabs cholecalciferol (vitamin D3) 1,250 50,000 unit PO .once weekly #12 02/23/25 Unknown Rx mcg (50,000 unit) capsule caps budesonide-formoterol HFA 160 See Rx Instructions .Route 02/28/25 Unknown Rx mcg-4.5 mcg/actuation aerosol .COMPLEX #10.2 grams inhaler (Breyna) vit no.95-ferrous 1 tab PO DAILY #90 tabs 03/08/25 Unknown Rx fumarate 28 mg-folic acid 800 mcg tablet () Allergies Allergy/AdvReac Type Severity Reaction Status Date / Time red dye Allergy Intermediate rash Verified 08/12/24 11:28 amoxicillin (From Augmentin) Allergy HIVES AND Verified 08/12/24 11:28 ITCHING clavulanic acid (From Allergy HIVES AND Verified 08/12/24 11:28 Augmentin) ITCHING meperidine (From Demerol) Allergy HIVES, Verified 08/12/24 11:28 ITCHING AND SHORTNESS OF BREATH PFSH Acute PFSH: Medical History Hypertension Morbid obesity Colon polyps Morbid obesity Venous stasis dermatitis Anasarca Cellulitis of left lower leg Lymphedema Acute diastolic heart failure Cellulitis Bilateral lower leg cellulitis Obesity hypoventilation syndrome Accelerated hypertension Smokes cigarettes Lower limb ulcer, ankle Lymphedema associated with obesity Polycystic ovarian syndrome Longstanding diagnosis, dating back to 2003. Has been on and off treatment for many years. LAURA (obstructive sleep apnea) Osteoarthritis of knees, bilateral Chronic low back pain with left-sided sciatica > 50% of 45 min visit counseling patient regarding weight. Encounter for long-term opiate analgesic use Current every day smoker Degeneration of intervertebral disc of cervical spine without disc herniation Arthralgia of cervical spine Surgical History S/P total abdominal hysterectomy (08/01/20) With RSO. [place] [facility] [place] Path showed polyp with complex hyperplasia with atypia Status post hysteroscopy (~05/09/20) Hysteroscopy with dilation and curettage with Dr. Paul Deshpande at [facility] History of laparoscopic cholecystectomy (~1993) History of D&C (~09/2003) History of laparoscopy (09/21/18) Dx: Small bowel obstruction. Lysis of adhesions. [place] [facility] [place] History of left salpingo-oophorectomy (01/15/06) Laparotomy. [place] [facility] [place] 10 cm left adnexal cystic mass. History of bariatric surgery (~2016) Laparoscopic gastric sleeve. H/O bariatric surgery (09/14/12) Laparoscopic band. H/O section 12/21/1991, 12/14/1993, 04/17/1995. Family History Father Diabetes Hypertension Social History Smoking and tobacco/nicotine status: former use of tobacco/nicotine (quit 15 months ago) Alcohol intake: never Substance/Drug Use: never Vitals/I&O/Wt Last Vital Signs Temp 97.9 F 03/10/25 15:28 Pulse 76 03/10/25 19:00 Resp 18 03/10/25 17:31 BP 151/82 03/10/25 17:28 Pulse Ox 98 03/10/25 19:00 O2 Del Method Room Air 03/10/25 19:00 03/10/25 03/10/25 03/10/25 06:59 14:59 22:59 Intake Total 1050 / 1050 Balance 1050 / 1050 Weight last 48 hrs Weight 224.982 kg Physical Exam Narrative: General: Patient is awake. Appears uncomfortable. Obese. Head: Normocephalic. Atraumatic. EOM intact. Neck: No JVD. Cardiovascular: RRR. No gallops. No murmurs. Severe lymphedema bilateral lower extremities. Lungs: Distant breath sounds. No use of accessory muscles, no crackles or wheezes. Skin: No jaundice. There is severe erythema, pitting on top of the lymphedema, and tenderness to palpation involving the left foot, left calf extending up near her knee. Abdomen: Normal bowel sounds, abdomen soft and nontender. Genito Urinary: Genital exam not performed since complaints not related. Rectal: Rectal exam not performed since no symptoms indicated blood loss. Extremities: Chronic lymphedema changes of lower extremities present. Musculoskeletal: Muscular development difficult to assess. Neurological: Moves all 4 extremities. No myoclonus. Data 03/10/25 17:27 03/10/25 17:27 Micro: Microbiology 03/10/25 17:27 Blood Culture - Preliminary Blood SPECIMEN COLLECTED 03/10/25 17:38 Blood Culture - Preliminary Blood SPECIMEN COLLECTED A&P Assessment and plan (1) Cellulitis: (2) CHF (congestive heart failure): (3) Morbid obesity: (4) Hypertension: (5) Anxiety and depression: (6) GERD without esophagitis: (7) Insomnia: Plan Cellulitis of left lower extremity Severe lymphedema - Severely complicated by severe lymphedema with repeat - She is high risk for failing oral antibiotics - Admit to observation for IV antibiotics - Start vancomycin, pharmacy to dose - Screen with MRSA nasal screening - Start cefepime - Start IV Bumex History of congestive heart failure with preserved ejection fraction -Patient has severe weepage of left lower extremity - Start IV Bumex - Hold oral Bumex Chronic pain - Continue home analgesics - Hydromorphone Friday through pain Hypertension - Continue home antihypertensives GERD - PPI Insomnia - Continue home trazodone Morbid obesity - Would benefit from weight loss DVT prophylaxis: Lovenox CODE STATUS: Full code PDMP PDMP Reviewed: Not Reviewed Attestations Medical Necessity Statement*: Patient presents with severe cellulitis of the left lower extremity significantly complicated by severe lymphedema with expected hospitalization not to cross 2 midnights for initiation IV antibiotics. Coding Level of Care Code Acute Code for [facility] Fwd Diagnoses Cellulitis L03.90 CHF (congestive heart failure) I50.9 Morbid obesity E66.01 Primary hypertension I10 Hypertension type: primary hypertension Anxiety and depression F41.9; F32.A GERD without esophagitis K21.9 Other insomnia G47.09 Insomnia type: other insomnia
--- NOTE | 2025-03-10 20:09 | PC.NURSE ---
attempted to call report at 1999. Nurse to callback.
--- NOTE | 2025-03-10 20:18 | PC.NURSE ---
report called to [facility] at 2018.
[2025-03-10 21:18] LABS: C Reactive Protein 36.7 mg/L (0.0-4.9)
[2025-03-10 21:20] LABS: Erythrocyte Sedimentation Rate 94 mm/hr (0-15)
[2025-03-10 21:26] LABS: Procalcitonin 1.05 ng/mL (0-0.5)
[2025-03-10] MEDS: cefepime 1,000 mg SDV 1000 MG IVP (21:44)
[2025-03-10] MEDS: trazodone 100 mg Tablet PO (21:44)
[2025-03-10] MEDS: HYDROcodone-acetaminophen 10-325 mg Tablet 1 TAB PO (22:01)
[2025-03-10] MEDS: tizanidine 4 mg Tablet PO (22:01)
[2025-03-10 23:50] LABS: MRSA PCR OZH (swab) MRSA Detected (Not Detecte)
[2025-03-11] VITALS (8 sets, daily range): BP systolic 118–141; BP diastolic 62–87; PULSE 77–91; RESP 16–20; TEMP 36.6–36.9; O2SAT 94–98
[2025-03-11] MEDS: cefepime 1,000 mg SDV 1000 MG IVP ×3 (05:46→20:25)
[2025-03-11] MEDS: TRAMadol 50 mg Tablet PO (05:47)
[2025-03-11] MEDS: budesonide 0.5 mg/2 mL Neb INHALATION ×2 (08:03→19:40)
[2025-03-11] MEDS: albuterol 2.5 mg/3 mL Neb INHALATION (08:03)
[2025-03-11] MEDS: pantoprazole DR 40 mg Tablet PO ×2 (08:43→17:33)
[2025-03-11] MEDS: losartan 50 mg Tablet 100 MG PO (08:43)
[2025-03-11] MEDS: pregabalin 50 mg Capsule PO ×2 (08:43→17:32)
[2025-03-11] MEDS: potassium chloride ER 20 mEq Tablet PO (08:43)
[2025-03-11] MEDS: bumetanide 0.25 mg/mL SDV 10 mL 2 MG IVP (08:43)
--- NOTE | 2025-03-11 11:46 | P.PN_ITS ---
Subjective 2 Subjective: No acute events overnight. Patient seen at the bedside and has no new complaints. She reports some improvement in pain in her left leg, although her leg is still red. Vitals/I&O/Wt Last Vital Signs Temp 98.1 F 03/11/25 11:37 Pulse 80 03/11/25 11:37 Resp 19 H 03/11/25 11:37 BP 118/75 03/11/25 11:37 Pulse Ox 96 03/11/25 11:37 O2 Del Method Nasal Cannula 03/11/25 11:37 O2 Flow Rate 1 03/11/25 08:04 03/10/25 03/11/25 03/11/25 22:59 06:59 14:59 Intake Total 1690 / 1690 Balance 1690 / 1690 Weight last 48 hrs Weight 224.982 kg Weight 224.982 kg Physical Exam 2 Narrative: General: Awake, alert, no acute distress Head: Normocephalic. Atraumatic. EOM intact. Neck: No JVD. Cardiovascular: RRR. No gallops. No murmurs. Lungs: Diminished breath sounds bilaterally, no wheezes or crackles Skin: No jaundice. Abdomen: Normal bowel sounds, abdomen soft and nontender. Extremities: Chronic lymphedema changes of lower extremities present with ? blisters. Left leg/foot - swelling , redness , weeping skin, tenderness Neurological: Moves all 4 extremities. Urinary Catheter Management: Brumfield: Cath Placed During This Visit: yes Urinary Catheter Date of Insertion: 03/11/25 Urinary Catheter Time of Insertion: 11:09 Data 03/10/25 17:27 03/10/25 17:27 Micro: Microbiology 03/10/25 17:27 Blood Culture - Preliminary Blood SPECIMEN COLLECTED 03/10/25 17:38 Blood Culture - Preliminary Blood SPECIMEN COLLECTED A&P Assessment and plan (1) Cellulitis: (2) CHF (congestive heart failure): (3) Morbid obesity: (4) Hypertension: (5) Anxiety and depression: (6) GERD without esophagitis: (7) Insomnia: Plan #Cellulitis of left lower extremity #Severe chronic lymphedema - Left leg still looks red, with weeping skin and tender today - Continue broad-spectrum antibiotics vancomycin and cefepime - Wound care consult - Continue IV Bumex - Get wound cultures #History of congestive heart failure with preserved ejection fraction -Patient has severe weepage of left lower extremity - Continue IV Bumex - Hold oral Bumex #Chronic pain - Continue analgesics #Hypertension - Continue home antihypertensives #GERD - PPI #Insomnia - Continue home trazodone # Class III obesity - Would benefit from weight loss DVT prophylaxis: Lovenox PDMP PDMP Reviewed: Not Reviewed Attestations 2 Medical Necessity Statement*: Patient requires inpatient care for management of severe left lower extremity cellulitis Coding Level of Care Code Acute Code for [facility] Diagnoses Cellulitis L03.90 CHF (congestive heart failure) I50.9 Morbid obesity E66.01 Primary hypertension I10 Hypertension type: primary hypertension Anxiety and depression F41.9; F32.A GERD without esophagitis K21.9 Other insomnia G47.09 Insomnia type: other insomnia
[2025-03-11] MEDS: enoxaparin 40 mg/0.4 mL Syringe SUBCUT (12:31)
[2025-03-11] MEDS: trazodone 100 mg Tablet PO (20:24)
[2025-03-11] MEDS: HYDROcodone-acetaminophen 10-325 mg Tablet 1 TAB PO (20:24)
[2025-03-12] VITALS (9 sets, daily range): BP systolic 118–163; BP diastolic 68–79; PULSE 74–89; RESP 16–21; TEMP 36.6–36.9; O2SAT 95–97
[2025-03-12] MEDS: cefepime 1,000 mg SDV 1000 MG IVP ×3 (05:27→21:57)
[2025-03-12] MEDS: HYDROcodone-acetaminophen 10-325 mg Tablet 1 TAB PO ×3 (05:34→23:26)
[2025-03-12 05:51] LABS: Albumin Level 2.8 g/dL (3.5-5.2); Anion Gap 11.7 (5-19); Blood Urea Nitrogen 7 mg/dL (6-20); Calcium 8.2 mg/dL (8.5-10.5); Carbon Dioxide 27 mmol/L (22-29); Chloride 105 mmol/L (98-107); Glomerular Filtration Rate 129.6 mL/min (90-130); Glucose 103 mg/dL (65-115); Phosphorus 3.9 mg/dL (2.5-4.5); Potassium 3.7 mmol/L (3.5-5.1); Sodium 140 mmol/L (136-145)
[2025-03-12] MEDS: albuterol 2.5 mg/3 mL Neb INHALATION ×2 (07:57→19:40)
[2025-03-12] MEDS: budesonide 0.5 mg/2 mL Neb INHALATION ×2 (07:57→19:40)
[2025-03-12] MEDS: pantoprazole DR 40 mg Tablet PO ×2 (10:13→17:01)
[2025-03-12] MEDS: potassium chloride ER 20 mEq Tablet PO (10:13)
[2025-03-12] MEDS: losartan 50 mg Tablet 100 MG PO (10:13)
[2025-03-12] MEDS: pregabalin 50 mg Capsule PO ×2 (10:13→17:01)
[2025-03-12] MEDS: bumetanide 0.25 mg/mL SDV 10 mL 2 MG IVP (10:14)
--- NOTE | 2025-03-12 10:33 | P.PN_ITS ---
Subjective 2 Subjective: No acute events overnight. Patient seen at the bedside and has no new complaints. She reports some improvement in pain in her left leg, although her leg is still red. Vitals/I&O/Wt Last Vital Signs Temp 97.8 F 03/12/25 07:58 Pulse 80 03/12/25 08:00 Resp 16 03/12/25 08:00 BP 163/79 03/12/25 07:58 Pulse Ox 96 03/12/25 08:00 O2 Del Method Nasal Cannula 03/12/25 08:00 O2 Flow Rate 1 03/12/25 08:00 03/11/25 03/12/25 03/12/25 22:59 06:59 14:59 Intake Total 240 / 720 480 / 480 Output Total 3150 / 3150 400 / 3550 400 / 400 Balance -2910 / -2430 -400 / -2830 80 / 80 Weight last 48 hrs Weight 224.982 kg Weight 224.982 kg Physical Exam 2 Narrative: General: Awake, alert, no acute distress Head: Normocephalic. Atraumatic. EOM intact. Neck: No JVD. Cardiovascular: RRR. No gallops. No murmurs. Lungs: Diminished breath sounds bilaterally, no wheezes or crackles Skin: No jaundice. Abdomen: Normal bowel sounds, abdomen soft and nontender. Extremities: Chronic lymphedema changes of lower extremities present with ? blisters. Left leg/foot - swelling , redness , weeping skin, tenderness Neurological: Moves all 4 extremities. Urinary Catheter Management: Brumfield: Cath Placed During This Visit: yes Reason for Continuing Indwelling Catheter: Assist healing open wound Urinary Catheter Date of Insertion: 03/11/25 Urinary Catheter Time of Insertion: 11:09 Data 03/10/25 17:27 03/12/25 05:20 Micro: Microbiology 03/12/25 05:26 Blood Culture - Preliminary Blood SPECIMEN COLLECTED 03/12/25 05:20 Blood Culture - Preliminary Blood SPECIMEN COLLECTED 03/10/25 17:27 Blood Culture - Preliminary Blood NEGATIVE TO DATE 03/10/25 17:38 Blood Culture - Preliminary Blood Staphylococcus epidermidis A&P Assessment and plan (1) Cellulitis: (2) CHF (congestive heart failure): (3) Morbid obesity: (4) Hypertension: (5) Anxiety and depression: (6) GERD without esophagitis: (7) Insomnia: Plan #Cellulitis of left lower extremity #Severe chronic lymphedema - Left leg still looks red, with weeping skin and tender today - Continue broad-spectrum antibiotics vancomycin and cefepime -1 set of blood cultures with Staph epidermidis, unclear if contaminant -Surveillance blood cultures ordered - Wound care consult - Continue IV Bumex - Get wound cultures #History of congestive heart failure with preserved ejection fraction -Patient has severe weepage of left lower extremity - Continue IV Bumex - Hold oral Bumex #Chronic pain - Continue analgesics #Hypertension - Continue home antihypertensives #GERD - PPI #Insomnia - Continue home trazodone # Class III obesity - Would benefit from weight loss DVT prophylaxis: Lovenox PDMP PDMP Reviewed: Not Reviewed Attestations 2 Medical Necessity Statement*: Patient requires inpatient care for management of severe left lower extremity cellulitis Coding Level of Care Code Acute Code for [facility] Diagnoses Cellulitis L03.90 CHF (congestive heart failure) I50.9 Morbid obesity E66.01 Primary hypertension I10 Hypertension type: primary hypertension Anxiety and depression F41.9; F32.A GERD without esophagitis K21.9 Other insomnia G47.09 Insomnia type: other insomnia
[2025-03-12] MEDS: enoxaparin 40 mg/0.4 mL Syringe SUBCUT (11:59)
[2025-03-12] MEDS: ondansetron 2 mg/ML SDV 2 mL 4 MG IVP (17:44)
[2025-03-12] MEDS: trazodone 100 mg Tablet PO (21:57)
[2025-03-13] VITALS (10 sets, daily range): BP systolic 121–176; BP diastolic 69–84; PULSE 69–84; RESP 16–19; TEMP 36.5–36.8; O2SAT 94–96
[2025-03-13 05:25] LABS: Basophils % 0.5 %; Eosinophils # 0.3 10^3/uL (0.0-0.8); Eosinophils % 5.4 %; Hematocrit 29.8 % (36-47); Lymphocytes # 1.6 10^3/uL (0.8-4.8); Lymphocytes % 25.4 %; Mean Corpuscular HGB Conc 29.5 g/dL (30-55); Mean Corpuscular Hemoglobin 25.1 pg (27-33); Mean Corpuscular Volume 85.1 fl (85-98); Mean Platelet Volume 9.4 fL (7.4-10.4); Monocytes # 0.5 10^3/uL (0.2-0.9); Monocytes % 8.1 %; Neutrophils # 3.69 10^3/uL (1.8-7.7); Neutrophils % 58.4 %; Nucleated Red Blood Cells % 0 %; Platelet Count 228 10^3/cmm (157-399); Red Cell Distribution Width 16.4 % (12.1-15.1); White Blood Count 6.31 10^3/uL (3.29-11.43)
[2025-03-13 05:46] LABS: Albumin Level 2.7 g/dL (3.5-5.2); Anion Gap 11.4 (5-19); Blood Urea Nitrogen 7 mg/dL (6-20); Calcium 8.1 mg/dL (8.5-10.5); Carbon Dioxide 29 mmol/L (22-29); Chloride 105 mmol/L (98-107); Creatinine Clr Calc Pharmacy 229.3742; Glucose 130 mg/dL (65-115); Phosphorus 3.6 mg/dL (2.5-4.5); Potassium 3.4 mmol/L (3.5-5.1); Sodium 142 mmol/L (136-145)
[2025-03-13] MEDS: cefepime 1,000 mg SDV 1000 MG IVP ×3 (05:46→20:03)
[2025-03-13] MEDS: budesonide 0.5 mg/2 mL Neb INHALATION ×2 (07:57→20:32)
[2025-03-13] MEDS: albuterol 2.5 mg/3 mL Neb INHALATION (07:58)
[2025-03-13] MEDS: HYDROcodone-acetaminophen 10-325 mg Tablet 1 TAB PO ×2 (08:44→22:10)
[2025-03-13] MEDS: pantoprazole DR 40 mg Tablet PO ×2 (08:44→17:53)
[2025-03-13] MEDS: potassium chloride ER 20 mEq Tablet PO (08:44)
[2025-03-13] MEDS: losartan 50 mg Tablet 100 MG PO (08:44)
[2025-03-13] MEDS: pregabalin 50 mg Capsule PO ×2 (08:44→17:53)
[2025-03-13] MEDS: tizanidine 4 mg Tablet PO (08:44)
[2025-03-13] MEDS: bumetanide 0.25 mg/mL SDV 10 mL 2 MG IVP (08:45)
[2025-03-13] MEDS: enoxaparin 40 mg/0.4 mL Syringe SUBCUT (12:35)
--- NOTE | 2025-03-13 17:32 | P.PN_ITS ---
Subjective 2 Subjective: chart reveiwed patient states that LLE swelling is improving ,continues to have significant erythema over the left leg along with discharge Medications: Reviewed: Yes Vitals/I&O/Wt Last Vital Signs Temp 97.9 F 03/13/25 16:00 Pulse 76 03/13/25 16:00 Resp 18 03/13/25 16:00 BP 133/71 03/13/25 16:00 Pulse Ox 94 03/13/25 16:00 O2 Del Method Nasal Cannula 03/13/25 16:00 O2 Flow Rate 1.5 03/13/25 08:00 03/13/25 03/13/25 03/13/25 06:59 14:59 22:59 Intake Total 960 / 960 Output Total 400 / 4850 3400 / 3400 Balance -400 / -3650 -2440 / -2440 Physical Exam 2 Narrative: General: No acute distress, AO x3 HEENT: PERRLA, pupils bilaterally equal and reactive, pallors not present Chest: Normal vesicular breath sounds, no added sounds, equal good air entry bilaterally CVS: S1-S2 regular, no murmurs, no tachycardia, no gallops, no rubs Abdomen: Soft, nontender, no organomegaly, bowel sounds present Neuro: No focal deficits, no facial deformity, AO x3, power 5/5 in all limbs Extremities: severe lymphedema B/L with changes of cellulitis over LLE- pictures attached Urinary Catheter Management: Brumfield: Cath Placed During This Visit: yes Reason for Continuing Indwelling Catheter: Assist healing open wound Urinary Catheter Date of Insertion: 03/11/25 Urinary Catheter Time of Insertion: 11:09 Data 03/13/25 04:54 03/13/25 04:54 Micro: Microbiology 03/10/25 17:38 Blood Culture - Preliminary Blood Staphylococcus epidermidis Staphylococcus lugdunensis 03/12/25 05:26 Blood Culture - Preliminary Blood NEGATIVE TO DATE 03/12/25 05:20 Blood Culture - Preliminary Blood NEGATIVE TO DATE 03/12/25 15:20 Gram Stain - Final Ankle - Drainage Other data: A&P Assessment and plan (1) Cellulitis: (2) CHF (congestive heart failure): (3) Morbid obesity: (4) Hypertension: (5) Anxiety and depression: (6) GERD without esophagitis: (7) Insomnia: Plan #Cellulitis of left lower extremity #Severe chronic lymphedema - Left leg still looks red, with weeping skin and tender today - Continue broad-spectrum antibiotics vancomycin and cefepime -1 set of blood cultures with Staph epidermidis, unclear if contaminant -Surveillance blood cultures ordered - Wound care consult - Continue IV Bumex - Get wound cultures #History of congestive heart failure with preserved ejection fraction -Patient has severe weepage of left lower extremity - Continue IV Bumex - Hold oral Bumex #Chronic pain - Continue analgesics #Hypertension - Continue home antihypertensives #GERD - PPI #Insomnia - Continue home trazodone # Class III obesity - Would benefit from weight loss DVT prophylaxis: Lovenox March 13, 2025 50F with a past medical history of morbid obesity, massive lymphedema, past history of multiple episodes of cellulitis and sepsis related to infections with the left lower extremity, currently admitted to the hospital with left lower extremity cellulitis. Patient states that she had injury to the left leg when her dog scratched her foot accidentally. Blood cultures was positive for staph lugdunensis And Staph epidermidis. After 2 lugdunensis is less likely to be a contaminant. Will need to be treated with dedicated antibiotics. She is currently on cefepime 1 g IV every 8 hours, however continues to have cellulitic changes. Add vancomycin empirically and monitor closely. Discussed with patient that given recurrent episodes of sepsis and cellulitis, patient will likely benefit from chronic suppression. Discussed daily suppressive antibiotic approach vs pill in pocket approach. Patient currently states she would prefer to do a pill in pocket approach for long-term. Will establish care with outpatient ID for long-term treatment. In the interim would benefit from lymphedema wraps. Reviewed prior chart. Patient was referred to the wound care clinic after a similar episode of cellulitis approximately 1 year ago. She had a shallow ulcer at that time which subsequently healed. Patient was referred for lymphedema therapy to physical therapy, however her insurance declined/did not cover the treatment. Ordered for lymphedema care currently in the hospital. She would benefit from ongoing lym[hedema care- will refer as outpatient. Patient is currently considering weight loss surgery and is scheduled for a Felib[facility]-en-Y procedure in [facility]. Continue iv abx PDMP PDMP Reviewed: Not Reviewed Attestations 2 Medical Necessity Statement*: add iv vancomycin, lymphedema PT care, await f/up cx to determine clearance Coding Level of Care Code Acute Code for [facility] Diagnoses Cellulitis L03.90 CHF (congestive heart failure) I50.9 Morbid obesity E66.01 Primary hypertension I10 Hypertension type: primary hypertension Anxiety and depression F41.9; F32.A GERD without esophagitis K21.9 Other insomnia G47.09 Insomnia type: other insomnia
--- NOTE | 2025-03-13 17:38 | PHA.VACGOAL ---
Vancomycin Goal - Goal Vancomycin Goal:: 10-15 mg/L Vancomycin Indication:: SSTI - Therapy Current therapy:: Cefepime Day of therpy:: Day []of [] . Actual body weight (kg): 496 lb - Data Labs: WBC 6.31 10^3/uL (3.29-11.43) 03/13/25 04:54 RBC 3.50 10^6/uL (3.85-5.65) L 03/13/25 04:54 Hgb 8.80 g/dL (11.27-16.99) L 03/13/25 04:54 Hct 29.8 % (36-47) L 03/13/25 04:54 MCV 85.1 fl (85-98) 03/13/25 04:54 MCH 25.1 pg (27-33) L 03/13/25 04:54 MCHC 29.5 g/dL (30-55) L 03/13/25 04:54 RDW 16.4 % (12.1-15.1) H 03/13/25 04:54 Sodium 142 mmol/L (136-145) 03/13/25 04:54 Potassium 3.4 mmol/L (3.5-5.1) L 03/13/25 04:54 Chloride 105 mmol/L (98-107) 03/13/25 04:54 Carbon Dioxide 29 mmol/L (22-29) 03/13/25 04:54 Anion Gap 11.4 (5-19) 03/13/25 04:54 BUN 7 mg/dL (6-20) 03/13/25 04:54 Creatinine 0.6 mg/dL (0.5-0.9) 03/13/25 04:54 GFR Calculation 105.0 mL/min (90-130) 03/13/25 04:54 Last dialysis session:: N/A Treatment plan:: new consult <Brice Hernandez - Last Filed: 03/13/25 17:38> - Therapy Day of therpy:: Day []of [] . - Data Labs: WBC 7.57 10^3/uL (3.29-11.43) 03/14/25 06:50 RBC 3.66 10^6/uL (3.85-5.65) L 03/14/25 06:50 Hgb 9.20 g/dL (11.27-16.99) L 03/14/25 06:50 Hct 31.2 % (36-47) L 03/14/25 06:50 MCV 85.2 fl (85-98) 03/14/25 06:50 MCH 25.1 pg (27-33) L 03/14/25 06:50 MCHC 29.5 g/dL (30-55) L 03/14/25 06:50 RDW 16.3 % (12.1-15.1) H 03/14/25 06:50 Sodium 141 mmol/L (136-145) 03/14/25 06:50 Potassium 3.9 mmol/L (3.5-5.1) 03/14/25 06:50 Chloride 105 mmol/L (98-107) 03/14/25 06:50 Carbon Dioxide 27 mmol/L (22-29) 03/14/25 06:50 Anion Gap 12.9 (5-19) 03/14/25 06:50 BUN 7 mg/dL (6-20) 03/14/25 06:50 Creatinine 0.5 mg/dL (0.5-0.9) 03/14/25 06:50 GFR Calculation 129.6 mL/min (90-130) 03/14/25 06:50 Treatment plan:: new consult Regimen:: INITIAL MAINTENANCE DOSE OF 2000 MG Q8H <Steven Earl - Last Filed: 03/14/25 17:32> - Therapy Day of therpy:: Day []of [] . - Data Labs: WBC 7.57 10^3/uL (3.29-11.43) 03/14/25 06:50 RBC 3.66 10^6/uL (3.85-5.65) L 03/14/25 06:50 Hgb 9.20 g/dL (11.27-16.99) L 03/14/25 06:50 Hct 31.2 % (36-47) L 03/14/25 06:50 MCV 85.2 fl (85-98) 03/14/25 06:50 MCH 25.1 pg (27-33) L 03/14/25 06:50 MCHC 29.5 g/dL (30-55) L 03/14/25 06:50 RDW 16.3 % (12.1-15.1) H 03/14/25 06:50 Sodium 141 mmol/L (136-145) 03/14/25 06:50 Potassium 3.9 mmol/L (3.5-5.1) 03/14/25 06:50 Chloride 105 mmol/L (98-107) 03/14/25 06:50 Carbon Dioxide 27 mmol/L (22-29) 03/14/25 06:50 Anion Gap 12.9 (5-19) 03/14/25 06:50 BUN 7 mg/dL (6-20) 03/14/25 06:50 Creatinine 0.5 mg/dL (0.5-0.9) 03/14/25 06:50 GFR Calculation 129.6 mL/min (90-130) 03/14/25 06:50 <Pavel Wagoner - Last Filed: 03/15/25 12:45>
[2025-03-13] MEDS: vancomycin 2,000 MG/400 ML PIGGYBACK 200 MG IV (17:53)
[2025-03-13] MEDS: trazodone 100 mg Tablet PO (20:03)
[2025-03-14] VITALS (10 sets, daily range): BP systolic 128–149; BP diastolic 74–83; PULSE 69–86; RESP 15–20; TEMP 36.4–36.9; O2SAT 93–98
[2025-03-14] MEDS: vancomycin 2,000 MG/400 ML PIGGYBACK 200 MG IV ×2 (01:48→08:44)
[2025-03-14] MEDS: cefepime 1,000 mg SDV 1000 MG IVP ×2 (04:00→12:45)
[2025-03-14 07:00] LABS: Basophils % 0.5 %; Eosinophils # 0.4 10^3/uL (0.0-0.8); Eosinophils % 5.7 %; Hematocrit 31.2 % (36-47); Lymphocytes # 1.5 10^3/uL (0.8-4.8); Lymphocytes % 19.4 %; Mean Corpuscular HGB Conc 29.5 g/dL (30-55); Mean Corpuscular Hemoglobin 25.1 pg (27-33); Mean Corpuscular Volume 85.2 fl (85-98); Monocytes # 0.6 10^3/uL (0.2-0.9); Monocytes % 7.9 %; Neutrophils # 4.91 10^3/uL (1.8-7.7); Neutrophils % 64.9 %; Nucleated Red Blood Cells % 0 %; Platelet Count 255 10^3/cmm (157-399); Red Blood Count 3.66 10^6/uL (3.85-5.65); Red Cell Distribution Width 16.3 % (12.1-15.1); White Blood Count 7.57 10^3/uL (3.29-11.43)
[2025-03-14 07:23] LABS: Alanine Aminotransferase 17 U/L (0-33); Albumin Level 2.8 g/dL (3.5-5.2); Alkaline Phosphatase 57 U/L (35-105); Anion Gap 12.9 (5-19); Aspartate Amino Transferase 16 U/L (0-32); Blood Urea Nitrogen 7 mg/dL (6-20); Calcium 8.1 mg/dL (8.5-10.5); Carbon Dioxide 27 mmol/L (22-29); Chloride 105 mmol/L (98-107); Glomerular Filtration Rate 129.6 mL/min (90-130); Glucose 90 mg/dL (65-115); Osmolality Calculated 290 mOsm/kg (285-295); Potassium 3.9 mmol/L (3.5-5.1); Sodium 141 mmol/L (136-145); Total Bilirubin 0.4 mg/dL (0.15-1.2); Total Protein 6.8 g/dL (6.6-8.7)
[2025-03-14] MEDS: budesonide 0.5 mg/2 mL Neb INHALATION ×2 (08:21→20:22)
[2025-03-14] MEDS: albuterol 2.5 mg/3 mL Neb INHALATION (08:23)
[2025-03-14] MEDS: losartan 50 mg Tablet 100 MG PO (08:43)
[2025-03-14] MEDS: potassium chloride ER 20 mEq Tablet PO (08:43)
[2025-03-14] MEDS: HYDROcodone-acetaminophen 10-325 mg Tablet 1 TAB PO (08:43)
[2025-03-14] MEDS: tizanidine 4 mg Tablet PO (08:43)
[2025-03-14] MEDS: pregabalin 50 mg Capsule PO ×2 (08:43→17:09)
[2025-03-14] MEDS: pantoprazole DR 40 mg Tablet PO ×2 (08:44→17:09)
[2025-03-14] MEDS: bumetanide 0.25 mg/mL SDV 10 mL 2 MG IVP (08:44)
[2025-03-14] MEDS: enoxaparin 40 mg/0.4 mL Syringe SUBCUT (12:45)
--- NOTE | 2025-03-14 15:00 | P.PN_ITS ---
Subjective 2 Subjective: Hemodynamically stable and afebrile. States that she had an episode of profuse sweating last night which resolved spontaneously. Left lower extremity still with signs of cellulitis, improvement over yesterday. Medications: Reviewed: Yes Vitals/I&O/Wt Last Vital Signs Temp 97.7 F 03/14/25 12:18 Pulse 83 03/14/25 12:18 Resp 19 H 03/14/25 12:18 BP 129/76 03/14/25 12:18 Pulse Ox 93 03/14/25 12:18 O2 Del Method Nasal Cannula 03/14/25 12:18 O2 Flow Rate 1 03/14/25 08:23 03/14/25 03/14/25 03/14/25 06:59 14:59 22:59 Intake Total 400 / 2240 1000 / 1000 Output Total 900 / 4300 4725 / 4725 Balance -500 / -2060 -3725 / -3725 Weight last 48 hrs Weight 224.982 kg Physical Exam 2 Narrative: General: No acute distress, AO x3 HEENT: PERRLA, pupils bilaterally equal and reactive, pallors not present Chest: Normal vesicular breath sounds, no added sounds, equal good air entry bilaterally CVS: S1-S2 regular, no murmurs, no tachycardia, no gallops, no rubs Abdomen: Soft, nontender, no organomegaly, bowel sounds present Neuro: No focal deficits, no facial deformity, AO x3, power 5/5 in all limbs Extremities: severe lymphedema B/L with changes of cellulitis over LLE- pictures attached Urinary Catheter Management: Brumfield: Cath Placed During This Visit: yes Reason for Continuing Indwelling Catheter: Assist healing open wound Urinary Catheter Date of Insertion: 03/11/25 Urinary Catheter Time of Insertion: 11:09 Data 03/14/25 06:50 03/14/25 06:50 Micro: Microbiology 03/12/25 15:20 Gram Stain - Final Ankle - Drainage Wound Culture - Preliminary Pseudomonas aeruginosa Serratia marcescens Strep agalactiae - (group b) NAME: Ziyad Felipe LOC: [facility] U #: [id number] AGE/SX: 50/F ROOM: [facility] R E03/11/[address]: Jillian Goodson MD : 1975 BED: 2 D IS: FAX #: STATUS: ADM IN TLOC: Spec #: [id number] Tahir: 03/12/25 Status: RES Req #: [id number] Recd: 03/12/[address]: Casie Jernigan MD Src: Ankle SpDesc: Drainage Ordered: WC and GS Procedure Result Verified Site Gram Stain Final 03/12/25 Result FEW WHITE BLOOD CELLS FEW GRAM POSITIVE COCCI IN PAIRS RARE GRAM NEGATIVE RODS Wound Culture Preliminary 03/14/25 Organism 1 Pseudomonas aeruginosa Growth MODERATE Organism 2 Serratia marcescens Growth MODERATE Organism 3 Strep agalactiae - (group b) Growth FEW Strep Typing Strep Typing MODERATE MIXED SUPERFICIAL ARTUR ON DAY 3 RESULTS TO FOLLOW P aerugino S marcesc M.I.C. RX M.I.C. RX --------- ------ --------- ------ * Amikacin <=16 S * Aztreonam <=4 S <=4 S * Cefepime <=8 S <=8 S * Ceftriaxone 32 R * Ciprofloxacin <=1 S <=1 S * Gentamicin <=2 S * Imipenem <=1 S <=1 S * Levofloxacin <=2 S <=2 S * Tetracycline >8 R * Trimethoprim/Sulfamethoxazole >2/38 R * Piperacillin/Tazobactam <=16 S <=16 S Wound Culture Preliminary (changed) 03/13/25 Organism 1 Gram Negative Rods Growth MODERATE Organism 2 Gram Negative Rods#2 Growth MODERATE MODERATE MIXED SUPERFICIAL ARTUR ON DAY 1 RESULTS TO FOLLOW 03/10/25 17:38 Blood Culture - Final Blood Staphylococcus epidermidis Staphylococcus lugdunensis NAME: Ziyad Felipe LOC: [facility] #: [id number] AGE/SX: 50/F ROOM: 256 R E03/11/[address]: Jillian Goodson MD : 1975 BED: 2 D IS: FAX #: STATUS: ADM IN TLOC: Spec #: [id number] Tahir: 03/10/25 Status: COMP Req #: [id number] Recd: 03/10/[address]: Rylan Miller MD Src: Blood SpDesc: Ordered: Bcult Procedure Result Verified Site Blood Culture Final 03/14/25-1012 1 OF 3 BOTTLES POSITIVE DIRECT GRAM STAIN: GRAM POSITIVE COCCI IN CLUSTERS IDENTIFICATION BY DIRECT PCR Detection of mecA indicates presence of Methicillin Resistant Staphylococcus spp. Organism 1 Staphylococcus epidermidis Growth 1 BOTTLE Organism 2 Staphylococcus lugdunensis Growth IN SAME BOTTLE #1 Gram Stain Charge Charge for Gram Stain CRITICAL RESULT YES/NO: YES CRITICAL CALLED BY: CHARY TO AND READ BACK BY: EMMA SAID SHE WOULD HAVE NURSE CALL DATE: 03/11/25 TIME: 1314 2ND CRITICAL RES YES/NO: YES 2ND CRITICAL CALLED BY: CHARY 2ND TO AND READ BACK BY: SHI DATE: 03/11/25 2ND CRITICAL TIME: 1412 S epidermi Panchito fontenot M.I.C. RX M.I.C. RX --------- ------ --------- ------ * Ciprofloxacin <=1 S <=1 S * Clindamycin <=0.5 S <=0.5 S * Erythromycin >4 R >4 R * Gentamicin <=4 S * Levofloxacin <=1 S <=1 S * Linezolid <=1 S <=1 S * Moxifloxacin <=0.5 S <=0.5 S * Oxacillin >2 R >2 R * Penicillin 8 R >8 R * Rifampin <=1 S <=1 S * Tetracycline <=4 S <=4 S * Trimethoprim/Sulfamethoxazole >2/38 R >2/38 R Vancomycin 1 S 1 S Daptomycin <=0.5 S <=0.5 S NAME: Ziyad Felipe LOC: [facility] U #: [id number] AGE/SX: 50/F ROOM: 256 R E03/11/[address]: Jillian Goodson MD : 1975 BED: 2 D IS: FAX #: STATUS: ADM IN TLOC: Spec #: [id number] Tahir: 03/12/25 Status: RES Req #: [id number] Recd: 03/12/[address]: Casie Jernigan MD Src: Blood SpDesc: Ordered: Bcult Procedure Result Verified Site Blood Culture Preliminary 03/13/25 NEGATIVE TO DATE Blood Culture Preliminary (changed) 03/12/25 SPECIMEN COLLECTED A&P Assessment and plan (1) Cellulitis: (2) CHF (congestive heart failure): (3) Morbid obesity: (4) Hypertension: (5) Anxiety and depression: (6) GERD without esophagitis: (7) Insomnia: Plan #Cellulitis of left lower extremity #Severe chronic lymphedema - Left leg still looks red, with weeping skin and tender today - Continue broad-spectrum antibiotics vancomycin and cefepime -1 set of blood cultures with Staph epidermidis, unclear if contaminant -Surveillance blood cultures ordered - Wound care consult - Continue IV Bumex - Get wound cultures #History of congestive heart failure with preserved ejection fraction -Patient has severe weepage of left lower extremity - Continue IV Bumex - Hold oral Bumex #Chronic pain - Continue analgesics #Hypertension - Continue home antihypertensives #GERD - PPI #Insomnia - Continue home trazodone # Class III obesity - Would benefit from weight loss DVT prophylaxis: Lovenox March 13, 2025 50F with a past medical history of morbid obesity, massive lymphedema, past history of multiple episodes of cellulitis and sepsis related to infections with the left lower extremity, currently admitted to the hospital with left lower extremity cellulitis. Patient states that she had injury to the left leg when her dog scratched her foot accidentally. Blood cultures was positive for staph lugdunensis And Staph epidermidis. After 2 lugdunensis is less likely to be a contaminant. Will need to be treated with dedicated antibiotics. She is currently on cefepime 1 g IV every 8 hours, however continues to have cellulitic changes. Add vancomycin empirically and monitor closely. Discussed with patient that given recurrent episodes of sepsis and cellulitis, patient will likely benefit from chronic suppression. Discussed daily suppressive antibiotic approach vs pill in pocket approach. Patient currently states she would prefer to do a pill in pocket approach for long-term. Will establish care with outpatient ID for long-term treatment. In the interim would benefit from lymphedema wraps. Reviewed prior chart. Patient was referred to the wound care clinic after a similar episode of cellulitis approximately 1 year ago. She had a shallow ulcer at that time which subsequently healed. Patient was referred for lymphedema therapy to physical therapy, however her insurance declined/did not cover the treatment. Ordered for lymphedema care currently in the hospital. She would benefit from ongoing lym[hedema care- will refer as outpatient. Patient is currently considering weight loss surgery and is scheduled for a Feliberto-en-Y procedure in [facility]. Continue iv abx 03/14/2025 No definite improvement in lymphedema and cellulitis today. IV vancomycin was added yesterday. Will continue IV vancomycin and IV cefepime today. Increased dose of cefepime to 2 g IV every 8 hours to optimize for Pseudomonas that is now revealed on wound cultures. To start with lymphedema wraps today. Blood culture positive for staph lugdunensis on 07/11/2025. Follow-up blood cultures from 06/12/2025 thus far remain negative to date. Continue IV cefepime and IV vancomycin. Once cellulitis starts to improve, will aim to transition to oral ciprofloxacin and linezolid at the time of discharge. PDMP PDMP Reviewed: Not Reviewed Attestations 2 Medical Necessity Statement*: Continued need for iv abx, lymphedema care Coding Level of Care Code Acute Code for [facility] Fwd Diagnoses Cellulitis L03.90 CHF (congestive heart failure) I50.9 Morbid obesity E66.01 Primary hypertension I10 Hypertension type: primary hypertension Anxiety and depression F41.9; F32.A GERD without esophagitis K21.9 Other insomnia G47.09 Insomnia type: other insomnia
[2025-03-14 17:01] LABS: Vancomycin Trough 17.7 ug/mL (10-15)
[2025-03-14] MEDS: vancomycin 1,750 MG/350 ML PIGGYBACK 175 MG IV (17:12)
[2025-03-14] MEDS: trazodone 100 mg Tablet PO (21:54)
[2025-03-15] VITALS (10 sets, daily range): BP systolic 124–157; BP diastolic 67–82; PULSE 78–91; RESP 16–18; TEMP 36.4–36.9; O2SAT 93–97
--- NOTE | 2025-03-15 01:48 | PC.NURSE ---
patient laying in bed with eyes open. assessment done at this time. bilateral lower extremeties 4 plus edema. left lower extremity red and hot to touch. patient denies pain. blister like bubbles on both lower extremeties. legs not weeping at this time. lymphadema wraps applied to both lower extremeties, both dry and intact.
--- NOTE | 2025-03-15 01:52 | PC.NURSE ---
patient in bed with eyes open, complaints of pain at iv site, nurse inspects site, iv leaking fluid. nurse dc's iv, catheter intact upon removal. this note wrote late, iv dc'd at 2200
[2025-03-15] MEDS: cefepime 2,000 mg SDV 2000 MG IVP ×4 (02:01→21:17)
[2025-03-15] MEDS: vancomycin 1,750 MG/350 ML PIGGYBACK 175 MG IV ×3 (02:07→21:17)
[2025-03-15] MEDS: HYDROcodone-acetaminophen 10-325 mg Tablet 1 TAB PO ×2 (02:16→14:11)
--- NOTE | 2025-03-15 04:29 | PC.NURSE ---
patient in bed with eyes open, sathish mcarthur Rn in room to start an iv via ultrasound. 20g to her left forearm flushed with 10ml normal saline. patient tolerated well. patient asking for pain meds at this time. note wrote late 0200
[2025-03-15] MEDS: albuterol 2.5 mg/3 mL Neb INHALATION (07:53)
[2025-03-15] MEDS: budesonide 0.5 mg/2 mL Neb INHALATION ×2 (07:53→19:56)
[2025-03-15] MEDS: bumetanide 0.25 mg/mL SDV 10 mL 2 MG IVP (08:10)
[2025-03-15] MEDS: pantoprazole DR 40 mg Tablet PO ×2 (08:11→17:06)
[2025-03-15] MEDS: pregabalin 50 mg Capsule PO ×2 (08:11→17:06)
[2025-03-15] MEDS: losartan 50 mg Tablet 100 MG PO (08:11)
[2025-03-15] MEDS: potassium chloride ER 20 mEq Tablet PO (08:11)
--- NOTE | 2025-03-15 10:40 | PC.NURSE ---
Reported to this RN that IV complications prevented Vancomycin to be completed on time. Vancomycin completed at 0700. Notifies Pavel, pharmacist, of complications and if 1000 dose should be given. Pavel changes schedule to match the late dose.
[2025-03-15] MEDS: enoxaparin 40 mg/0.4 mL Syringe SUBCUT (10:49)
--- NOTE | 2025-03-15 14:24 | P.PN_ITS ---
Subjective 2 Subjective: improving area of cellulitis over the medial aspect, however the lateral aspect continues to be erythematous and warm to touch. There is now an open draining wound over the medial ankle. In the interim has also developed intercrural candidiasis. Medications: Reviewed: Yes Vitals/I&O/Wt Last Vital Signs Temp 97.9 F 03/15/25 11:01 Pulse 84 03/15/25 11:01 Resp 17 03/15/25 11:01 BP 156/80 03/15/25 11:01 Pulse Ox 93 03/15/25 11:01 O2 Del Method Room Air 03/15/25 11:01 O2 Flow Rate 1 03/15/25 07:35 03/14/25 03/15/25 03/15/25 22:59 06:59 14:59 Intake Total 710 / 1710 350 / 2060 480 / 480 Output Total 1450 / 6175 850 / 7025 5350 / 5350 Balance -740 / -4465 -500 / -4965 -4870 / -4870 Weight last 48 hrs Weight 224.982 kg Weight 224.982 kg Physical Exam 2 Narrative: General: No acute distress, AO x3 HEENT: PERRLA, pupils bilaterally equal and reactive, pallors not present Chest: Normal vesicular breath sounds, no added sounds, equal good air entry bilaterally CVS: S1-S2 regular, no murmurs, no tachycardia, no gallops, no rubs Abdomen: Soft, nontender, no organomegaly, bowel sounds present Neuro: No focal deficits, no facial deformity, AO x3, power 5/5 in all limbs Extremities: severe lymphedema B/L with changes of cellulitis over LLE Urinary Catheter Management: Brumfield: Cath Placed During This Visit: yes Reason for Continuing Indwelling Catheter: Other Urinary Catheter Date of Insertion: 03/11/25 Urinary Catheter Time of Insertion: 11:09 Data 03/14/25 06:50 03/14/25 06:50 Micro: Microbiology 03/12/25 15:20 Gram Stain - Final Ankle - Drainage Wound Culture - Final Pseudomonas aeruginosa Serratia marcescens Strep agalactiae - (group b)#2 03/10/25 17:38 Blood Culture - Final Blood Staphylococcus epidermidis Staphylococcus lugdunensis A&P Assessment and plan (1) Cellulitis: (2) CHF (congestive heart failure): (3) Morbid obesity: (4) Hypertension: (5) Anxiety and depression: (6) GERD without esophagitis: (7) Insomnia: Plan #Cellulitis of left lower extremity #Severe chronic lymphedema - Left leg still looks red, with weeping skin and tender today - Continue broad-spectrum antibiotics vancomycin and cefepime -1 set of blood cultures with Staph epidermidis, unclear if contaminant -Surveillance blood cultures ordered - Wound care consult - Continue IV Bumex - Get wound cultures #History of congestive heart failure with preserved ejection fraction -Patient has severe weepage of left lower extremity - Continue IV Bumex - Hold oral Bumex #Chronic pain - Continue analgesics #Hypertension - Continue home antihypertensives #GERD - PPI #Insomnia - Continue home trazodone # Class III obesity - Would benefit from weight loss DVT prophylaxis: Lovenox March 13, 2025 50F with a past medical history of morbid obesity, massive lymphedema, past history of multiple episodes of cellulitis and sepsis related to infections with the left lower extremity, currently admitted to the hospital with left lower extremity cellulitis. Patient states that she had injury to the left leg when her dog scratched her foot accidentally. Blood cultures was positive for staph lugdunensis And Staph epidermidis. After 2 lugdunensis is less likely to be a contaminant. Will need to be treated with dedicated antibiotics. She is currently on cefepime 1 g IV every 8 hours, however continues to have cellulitic changes. Add vancomycin empirically and monitor closely. Discussed with patient that given recurrent episodes of sepsis and cellulitis, patient will likely benefit from chronic suppression. Discussed daily suppressive antibiotic approach vs pill in pocket approach. Patient currently states she would prefer to do a pill in pocket approach for long-term. Will establish care with outpatient ID for long-term treatment. In the interim would benefit from lymphedema wraps. Reviewed prior chart. Patient was referred to the wound care clinic after a similar episode of cellulitis approximately 1 year ago. She had a shallow ulcer at that time which subsequently healed. Patient was referred for lymphedema therapy to physical therapy, however her insurance declined/did not cover the treatment. Ordered for lymphedema care currently in the hospital. She would benefit from ongoing lym[hedema care- will refer as outpatient. Patient is currently considering weight loss surgery and is scheduled for a Feliberto-en-Y procedure in [facility]. Continue iv abx 03/14/2025 No definite improvement in lymphedema and cellulitis today. IV vancomycin was added yesterday. Will continue IV vancomycin and IV cefepime today. Increased dose of cefepime to 2 g IV every 8 hours to optimize for Pseudomonas that is now revealed on wound cultures. To start with lymphedema wraps today. Blood culture positive for staph lugdunensis on 07/11/2025. Follow-up blood cultures from 06/12/2025 thus far remain negative to date. Continue IV cefepime and IV vancomycin. Once cellulitis starts to improve, will aim to transition to oral ciprofloxacin and linezolid at the time of discharge. 03/15/2025 mild improvement in cellulitis over the medial aspect, continues to have lateral aspect of the leg. Lymphedema wraps were placed yesterday. Taken down for examination today. Currently also has a draining ulcer over the medial aspect just above the ankle. Optifoam dressing will be applied. Lymphedema wraps today. Wound care consult placed. Continue IV cefepime, IV vancomycin and add oral fluconazole 100 mg p.o. daily. Continue lymphedema wraps. Monitor for improvement closely over the next 24 hours, thus far the cellulitis has been very slow to improve. Aim to discharge with oral antibiotics over the next 24 to 48 hours if cellulitis improves.Transition Bumex from IV to oral today. Patient is on Bumex for lymphedema and also for a history of chronic diastolic heart failure. She has diagnosed sleep apnea and is meant to wear a BiPAP at nighttime but is refusing the BiPAP here. States that she has not wear the BiPAP in the last 6 months due to claustrophobia. PDMP PDMP Reviewed: Not Reviewed Attestations 2 Medical Necessity Statement*: Transition IV to oral Bumex, continue lymphedema wraps, add fluconazole and monitor closely for improvement. Coding Level of Care Code Acute Code for Chg Fwd High MDM includes number and complexity of problems actively addressed during encounter, amount and/or complexity of data reviewed/ordered and described risk of complication, morbidity or mortality of management as documented Diagnoses Cellulitis L03.90 CHF (congestive heart failure) I50.9 Morbid obesity E66.01 Primary hypertension I10 Hypertension type: primary hypertension Anxiety and depression F41.9; F32.A GERD without esophagitis K21.9 Other insomnia G47.09 Insomnia type: other insomnia
--- NOTE | 2025-03-15 15:09 | PC.NURSE ---
Lymphedema wraps reapplied by LYNN Johnson.
[2025-03-15] MEDS: nystatin powder 15 gm Btl 1 APPLIC TOPICAL (17:06)
[2025-03-15] MEDS: ondansetron 2 mg/ML SDV 2 mL 4 MG IVP (17:09)
[2025-03-15] MEDS: trazodone 100 mg Tablet PO (21:17)
[2025-03-16] VITALS (11 sets, daily range): BP systolic 135–158; BP diastolic 71–75; PULSE 75–101; RESP 16–19; TEMP 36.6–37.1; O2SAT 93–97
[2025-03-16 05:17] LABS: Basophils % 0.3 %; Eosinophils # 0.4 10^3/uL (0.0-0.8); Eosinophils % 4.4 %; Hematocrit 32.5 % (36-47); Lymphocytes # 1.3 10^3/uL (0.8-4.8); Lymphocytes % 13.9 %; Mean Corpuscular HGB Conc 29.8 g/dL (30-55); Mean Corpuscular Hemoglobin 25.5 pg (27-33); Mean Corpuscular Volume 85.3 fl (85-98); Mean Platelet Volume 8.9 fL (7.4-10.4); Monocytes # 0.7 10^3/uL (0.2-0.9); Monocytes % 7.6 %; Neutrophils # 7.02 10^3/uL (1.8-7.7); Neutrophils % 73.2 %; Nucleated Red Blood Cells % 0 %; Platelet Count 289 10^3/cmm (157-399); Red Blood Count 3.81 10^6/uL (3.85-5.65); Red Cell Distribution Width 16.2 % (12.1-15.1); White Blood Count 9.59 10^3/uL (3.29-11.43)
[2025-03-16 05:47] LABS: Alanine Aminotransferase 17 U/L (0-33); Albumin Level 2.9 g/dL (3.5-5.2); Alkaline Phosphatase 56 U/L (35-105); Aspartate Amino Transferase 16 U/L (0-32); Blood Urea Nitrogen 8 mg/dL (6-20); Carbon Dioxide 27 mmol/L (22-29); Chloride 104 mmol/L (98-107); Creatinine Clr Calc Pharmacy 274.2683; Globulin 3.9 g/dL (1.3-4.6); Glomerular Filtration Rate 129.6 mL/min (90-130); Glucose 113 mg/dL (65-115); Osmolality Calculated 291 mOsm/kg (285-295); Sodium 141 mmol/L (136-145); Total Bilirubin 0.3 mg/dL (0.15-1.2); Total Protein 6.8 g/dL (6.6-8.7)
[2025-03-16] MEDS: vancomycin 1,750 MG/350 ML PIGGYBACK 175 MG IV ×2 (05:48→16:59)
[2025-03-16] MEDS: cefepime 2,000 mg SDV 2000 MG IVP ×3 (05:48→23:57)
[2025-03-16] MEDS: nystatin powder 15 gm Btl 1 APPLIC TOPICAL ×2 (05:56→17:02)
[2025-03-16] MEDS: budesonide 0.5 mg/2 mL Neb INHALATION ×2 (07:28→20:34)
[2025-03-16] MEDS: albuterol 2.5 mg/3 mL Neb INHALATION (07:28)
[2025-03-16] MEDS: pantoprazole DR 40 mg Tablet PO ×2 (08:27→17:01)
[2025-03-16] MEDS: potassium chloride ER 20 mEq Tablet PO (08:28)
[2025-03-16] MEDS: pregabalin 50 mg Capsule PO ×2 (08:28→17:01)
[2025-03-16] MEDS: losartan 50 mg Tablet 100 MG PO (08:30)
[2025-03-16] MEDS: bumetanide 1 mg Tablet 2 MG PO (08:30)
[2025-03-16] MEDS: fluconazole 100 mg Tablet PO (08:30)
--- NOTE | 2025-03-16 13:07 | P.PN_ITS ---
Subjective 2 Subjective: Cellulitis appears to be improving today. The lateral aspect which was concerning yesterday is less tender and warm to touch.Undergoing anticipated color changes. Medications: Reviewed: Yes Vitals/I&O/Wt Last Vital Signs Temp 97.9 F 03/16/25 11:12 Pulse 82 03/16/25 11:12 Resp 19 H 03/16/25 11:12 BP 136/73 03/16/25 11:12 Pulse Ox 95 03/16/25 11:12 O2 Del Method Nasal Cannula 03/16/25 11:12 O2 Flow Rate 1 03/16/25 11:12 03/15/25 03/16/25 03/16/25 22:59 06:59 14:59 Intake Total 1070 / 1550 350 / 1900 830 / 830 Output Total 1950 / 7300 400 / 7700 1500 / 1500 Balance -880 / -5750 -50 / -5800 -670 / -670 Weight last 48 hrs Weight 223.802 kg Weight 224.982 kg Physical Exam 2 Narrative: General: No acute distress, AO x3 HEENT: PERRLA, pupils bilaterally equal and reactive, pallors not present Chest: Normal vesicular breath sounds, no added sounds, equal good air entry bilaterally CVS: S1-S2 regular, no murmurs, no tachycardia, no gallops, no rubs Abdomen: Soft, nontender, no organomegaly, bowel sounds present Neuro: No focal deficits, no facial deformity, AO x3, power 5/5 in all limbs Extremities: severe lymphedema B/L with changes of cellulitis over LLE Urinary Catheter Management: [place]: Cath Placed During This Visit: yes Reason for Continuing Indwelling Catheter: Other Urinary Catheter Date of Insertion: 03/11/25 Urinary Catheter Time of Insertion: 11:09 Data 03/16/25 05:04 03/16/25 05:04 Micro: Microbiology 03/10/25 17:27 Blood Culture - Final Blood NO GROWTH AFTER 5 DAYS 03/12/25 15:20 Gram Stain - Final Ankle - Drainage Wound Culture - Final Pseudomonas aeruginosa Serratia marcescens Strep agalactiae - (group b)#2 A&P Assessment and plan (1) Cellulitis: (2) CHF (congestive heart failure): (3) Morbid obesity: (4) Hypertension: (5) Anxiety and depression: (6) GERD without esophagitis: (7) Insomnia: Plan #Cellulitis of left lower extremity #Severe chronic lymphedema - Left leg still looks red, with weeping skin and tender today - Continue broad-spectrum antibiotics vancomycin and cefepime -1 set of blood cultures with Staph epidermidis, unclear if contaminant -Surveillance blood cultures ordered - Wound care consult - Continue IV Bumex - Get wound cultures #History of congestive heart failure with preserved ejection fraction -Patient has severe weepage of left lower extremity - Continue IV Bumex - Hold oral Bumex #Chronic pain - Continue analgesics #Hypertension - Continue home antihypertensives #GERD - PPI #Insomnia - Continue home trazodone # Class III obesity - Would benefit from weight loss DVT prophylaxis: Lovenox March 13, 2025 50F with a past medical history of morbid obesity, massive lymphedema, past history of multiple episodes of cellulitis and sepsis related to infections with the left lower extremity, currently admitted to the hospital with left lower extremity cellulitis. Patient states that she had injury to the left leg when her dog scratched her foot accidentally. Blood cultures was positive for staph lugdunensis And Staph epidermidis. After 2 lugdunensis is less likely to be a contaminant. Will need to be treated with dedicated antibiotics. She is currently on cefepime 1 g IV every 8 hours, however continues to have cellulitic changes. Add vancomycin empirically and monitor closely. Discussed with patient that given recurrent episodes of sepsis and cellulitis, patient will likely benefit from chronic suppression. Discussed daily suppressive antibiotic approach vs pill in pocket approach. Patient currently states she would prefer to do a pill in pocket approach for long-term. Will establish care with outpatient ID for long-term treatment. In the interim would benefit from lymphedema wraps. Reviewed prior chart. Patient was referred to the wound care clinic after a similar episode of cellulitis approximately 1 year ago. She had a shallow ulcer at that time which subsequently healed. Patient was referred for lymphedema therapy to physical therapy, however her insurance declined/did not cover the treatment. Ordered for lymphedema care currently in the hospital. She would benefit from ongoing lym[hedema care- will refer as outpatient. Patient is currently considering weight loss surgery and is scheduled for a [facility] [place] [facility] [place] Continue iv abx 03/14/2025 No definite improvement in lymphedema and cellulitis today. IV vancomycin was added yesterday. Will continue IV vancomycin and IV cefepime today. Increased dose of cefepime to 2 g IV every 8 hours to optimize for Pseudomonas that is now revealed on wound cultures. To start with lymphedema wraps today. Blood culture positive for staph lugdunensis on 07/11/2025. Follow-up blood cultures from 06/12/2025 thus far remain negative to date. Continue IV cefepime and IV vancomycin. Once cellulitis starts to improve, will aim to transition to oral ciprofloxacin and linezolid at the time of discharge. 03/15/2025 mild improvement in cellulitis over the medial aspect, continues to have lateral aspect of the leg. Lymphedema wraps were placed yesterday. Taken down for examination today. Currently also has a draining ulcer over the medial aspect just above the ankle. Optifoam dressing will be applied. Lymphedema wraps today. Wound care consult placed. Continue IV cefepime, IV vancomycin and add oral fluconazole 100 mg p.o. daily. Continue lymphedema wraps. Monitor for improvement closely over the next 24 hours, thus far the cellulitis has been very slow to improve. Aim to discharge with oral antibiotics over the next 24 to 48 hours if cellulitis improves.Transition Bumex from IV to oral today. Patient is on Bumex for lymphedema and also for a history of chronic diastolic heart failure. She has diagnosed sleep apnea and is meant to wear a BiPAP at nighttime but is refusing the BiPAP here. States that she has not wear the BiPAP in the last 6 months due to claustrophobia. 03/16/2025 Cellulitis is showing signs of improvement today. It has been slow to respond thus far with addition of vancomycin and lymphedema wraps appear to be helping. Wound care consult pending for today to assess draining wound over the medial malleolus of the left ankle. Additionally assess if patient would need wound care follow-up at discharge versus home care of the wound. Continue IV cefepime, vancomycin and oral fluconazole for treatment today. Plan to discharge patient with oral Cipro, linezolid and fluconazole over the next 24 hours if cellulitis continues to do well. She will follow-up with physical therapy as outpatient for lymphedema wraps. Will likely benefit from chronic suppression, patient prefers to do a pill in pocket approach. This may be slightly difficult given multiple colonizers is currently Pseudomonas aeruginosa, however since most common culprits are usually staph and strep species, we will attempt suppression with oral cefadroxil as first-line. PDMP PDMP Reviewed: Not Reviewed Attestations 2 Medical Necessity Statement*: wound care, slowly showing signs of improvement, transition to oral abx tomorrow for anticipated discharge Coding Level of Care Code Acute Code for g Fwd Diagnoses Cellulitis L03.90 CHF (congestive heart failure) I50.9 Morbid obesity E66.01 Primary hypertension I10 Hypertension type: primary hypertension Anxiety and depression F41.9; F32.A GERD without esophagitis K21.9 Other insomnia G47.09 Insomnia type: other insomnia
[2025-03-16] MEDS: enoxaparin 40 mg/0.4 mL Syringe SUBCUT (13:13)
[2025-03-16 13:39] LABS: Vancomycin Trough 17.8 ug/mL (10-15)
--- NOTE | 2025-03-16 15:59 | P.CONIM_ITS ---
<Statement entered by Bhavesh Will MD - 03/17/25 07:52> I have reviewed the documentation and plan of care and agree with the assessment and plan of care as written. Dr. Bhavesh Will. This will be a recurring problem given the patient's overall medical condition and longstanding lymphedema. After acute treatment appropriate planning should be considered for long-term maintenance therapy. Providers/Reason For Consult 2 Consulting Physician/Specialty*: Wound care Reason for Consult*: Open wounds left lower extremity Requesting Physician: Dr. Goodson Attending Physician: Jillian Goodson MD Primary Care Provider: ANDRES Hernandez History of Present Illness History of Present Illness Ziyad Felipe is a 50 year old female with a past medical history that includes lymphedema, congestive heart failure, hypertension, GERD, chronic pain, morbid obesity, cellulitis, sleep apnea, and multiple other comorbidities. ?She has previously been treated at [facility] wound care in May and June 2024 for an open ulcer to her left medial malleolus after hospitalization due to cellulitis of her left lower extremity.? She presented to the emergency room due to complaints of worsening left lower extremity redness, edema, and weeping on March 10, 2025.? She was admitted for left lower extremity cellulitis. ?Approximately 1 week ago her dog accidentally scratched her leg and soon after her symptoms started. Blood cultures returned staph lugdunensis and Staph epidermidis.? A wound culture collected from the drainage coming from her left medial ankle resulted in Pseudomonas aeruginosa, Serratia marcescens, strep agalactiae group B. She has been treated with IV antibiotics including cefepime and vancomycin during her hospital course. ?Therapy services have been wrapping her legs with lymphedema wraps to help with the extreme edema. Her edema today is substancial though improved from previous days per therapy services who was present during the visit.? Wound care has been consulted due to open ulcerations on her left lower extremity. She is currently afebrile.? She is being medically managed by hospitalist service. Review of Systems 2 General: Reports: 10 or more systems reviewed and unremarkable except in HPI and below Const: Denies: fever(s), chills, fatigue or night sweats Card: Reports: swelling of feet/ankles (chronic bilateral); Denies: chest pain or irregular heart rhythm Resp: Denies: dyspnea GI: Reports: nausea (intermittent); Denies: abdominal pain Skin/Breast: Reports: sores (left lower extremity only) and dry skin (BLE) Medications/Allergies Home Medications ?Medication ?Instructions ?Recorded ?Confirmed ?Last Taken ?Type tramadol 50 mg tablet 50 mg PO TID PRN Pain 03/11/25 03/11/25 History bumetanide 2 mg tablet 2 mg PO DAILY #120 tabs 05/0303/11/25 07/12/24 Rx hydrocodone 10 mg-acetaminophen 1 tab PO QID PRN pain 06/28/24 03/11/25 03/10/25 History 325 mg tablet naloxone 4 mg/actuation nasal spray 4 mg intranasal Q2 M PRN Opioid 06/28/24 03/11/25 Unknown History Overdose ondansetron HCl 4 mg tablet See Rx Instructions .Route 11/15/24 03/11/25 Unknown Rx .COMPLEX #30 tabs pantoprazole 40 mg tablet,delayed See Rx Instructions .Route 11/15/24 03/11/25 Unknown Rx release .COMPLEX #60 tabs solifenacin 10 mg tablet See Rx Instructions .Route 0 11/15/24 03/11/25 Unknown Rx .COMPLEX #30 tabs albuterol sulfate 90 mcg/actuation See Rx Instructions .Route 11/24/24 03/11/25 Unknown Rx aerosol inhaler (Ventolin HFA) .COMPLEX #18 grams pregabalin 50 mg capsule 50 mg PO BID #60 caps 03/11/25 Unknown Rx tizanidine 4 mg tablet See Rx Instructions .Route 0 01/06/25 03/11/25 03/10/25 Rx .COMPLEX #20 tabs trazodone 100 mg tablet See Rx Instructions .Route 0 02/21/25 03/11/25 03/10/25 Rx .COMPLEX #90 tabs cholecalciferol (vitamin D3) 1,250 50,000 unit PO .onc e weekly #12 02/23/25 03/11/25 Unknown Rx mcg (50,000 unit) capsule caps budesonide-formoterol HFA 160 See Rx Instructions .Rou te 02/28/25 03/11/25 Unknown Rx mcg-4.5 mcg/actuation aerosol .COMPLEX #10.2 grams inhaler (Breyna) losartan 100 mg tablet 100 mg PO DAILY 03/11/2507/2803/10/25 History Allergies Allergy/AdvReac Type Severity Reaction Status Date / Time red dye Allergy Intermediate rash Verified 08/12/24 11:28 amoxicillin (From Augmentin) Allergy HIVES AND Verified 08/12/24 11:28 ITCHING clavulanic acid (From Allergy HIVES AND Verified 08/12/24 11:28 Augmentin) ITCHING meperidine (From Demerol) Allergy HIVES, Verified 08/12/24 11:28 ITCHING AND SHORTNESS OF BREATH Current Medications Generic Name Dose Route Start Last Admin Trade Name Freq PRN Reason Stop Dose Admin Hydrocodone Bitart/Acetaminophen 1 tab 03/10/25 20:55 03/15/25 14:11 Hydrocodone-Acetaminophen 10-325 Mg Tablet PO 1 tab QID PRN Administration MODERATE PAIN Albuterol Sulfate 2.5 mg 03/10/25 20:55 03/16/25 07:28 Albuterol 2.5 Mg/3 Ml Neb INHALATION 2.5 mg Q4H PRN Administration SHORTNESS OF BREATH Budesonide 0.5 mg 03/11/25 08:00 03/16/25 07:28 Budesonide 0.5 Mg/2 Ml Neb INHALATION 0.5 mg BID.RESPIRATORY MONAE Administration Bumetanide 2 mg 03/16/25 09:00 03/16/25 08:30 Bumetanide 1 Mg Tablet PO 2 mg DAILY MONAE Administration Cefepime HCl 2,000 mg 03/14/25 20:00 03/16/25 13:13 Cefepime 2,000 Mg Sdv IVP 2,000 mg Q8H MONAE Administration Protocol Enoxaparin Sodium 40 mg 03/11/25 12:00 03/16/25 13:13 Enoxaparin 40 Mg/0.4 Ml Syringe SUBCUT 40 mg Q24H MONAE Administration Fluconazole 100 mg 03/16/25 09:00 03/16/25 08:30 Fluconazole 100 Mg Tablet PO 100 mg DAILY MONAE Administration Losartan Potassium 100 mg 03/11/25 09:00 03/16/25 08:30 Losartan 50 Mg Tablet PO 100 mg DAILY MONAE Administration Mupirocin 1 applic 03/16/25 09:00 03/16/25 08:32 Mupirocin Oint 22 Gm TOPICAL Not Given DAILY MONAE Nystatin 1 applic 03/15/25 18:00 03/16/25 05:56 Nystatin Powder 15 Gm Btl TOPICAL 1 applic BID MONAE Administration Ondansetron HCl 4 mg 03/12/25 17:39 03/15/25 17:09 Ondansetron 2 Mg/Ml Sdv 2 Ml IVP 4 mg Q8H PRN Administration NAUSEA AND VOMITING Pantoprazole Sodium 40 mg 03/11/25 09:00 03/16/25 08:[address] 40 Mg Tablet PO 40 mg BID MONAE Administration Potassium Chloride 20 meq 03/11/25 09:00 03/16/25 08:28 Potassium Chloride Er 20 Meq Tablet PO 20 meq DAILY MONAE Administration Pregabalin 50 mg 03/11/25 09:00 03/16/25 08:28 Pregabalin 50 Mg Capsule PO 50 mg BID MONAE Administration Tizanidine HCl 4 mg 03/10/25 21:00 03/14/25 08:43 Tizanidine 4 Mg Tablet PO 4 mg TID PRN Administration MUSCLE SPASMS Tramadol HCl 50 mg 03/10/25 20:55 03/11/25 05:47 Tramadol 50 Mg Tablet PO 50 mg TID PRN Administration MILD PAIN Trazodone HCl 100 mg 03/10/25 21:00 03/15/25 21:17 Trazodone 100 Mg Tablet PO 100 mg BEDTIME MONAE Administration PFSH Acute 2 PFSH: Medical History (Updated 03/16/25 @ 16:20 by ANDRES Guerrero) Lymphedema Hypertension Morbid obesity Colon polyps Morbid obesity Venous stasis dermatitis Anasarca Cellulitis of left lower leg Acute diastolic heart failure Cellulitis Bilateral lower leg cellulitis Obesity hypoventilation syndrome Accelerated hypertension Smokes cigarettes Lower limb ulcer, ankle Lymphedema associated with obesity Polycystic ovarian syndrome Longstanding diagnosis, dating back to 2003. Has been on and off treatment for many years. LAURA (obstructive sleep apnea) Osteoarthritis of knees, bilateral Chronic low back pain with left-sided sciatica > 50% of 45 min visit counseling patient regarding weight. Encounter for long-term opiate analgesic use Current every day smoker Degeneration of intervertebral disc of cervical spine without disc herniation Arthralgia of cervical spine Surgical History S/P total abdominal hysterectomy (08/01/20) With RSO. Performed by Dr. Deshpande at [facility] in [place], [place]. Path showed polyp with complex hyperplasia with atypia Status post hysteroscopy (~05/09/20) Hysteroscopy with dilation and curettage with Dr. Paul Deshpande at [facility] History of laparoscopic cholecystectomy (~1993) History of D&C (~09/2003) History of laparoscopy (09/21/18) Dx: Small bowel obstruction. Lysis of adhesions. Performed by Dr. Yee at [facility]. History of left salpingo-oophorectomy (01/15/06) Laparotomy. Performed by Dr. Lovelace at [facility]. 10 cm left adnexal cystic mass. History of bariatric surgery (~2016) Laparoscopic gastric sleeve. H/O bariatric surgery (09/14/12) Laparoscopic band. H/O section 12/21/1991, 12/14/1993, 04/17/1995. Family History Father Diabetes Hypertension Social History Smoking and tobacco/nicotine status: former use of tobacco/nicotine (quit 15 months ago) Alcohol intake: never Substance/Drug Use: never Vitals/I&O/Wt Last Vital Signs Temp 97.9 F 03/16/25 11:12 Pulse 82 03/16/25 11:12 Resp 19 H 03/16/25 11:12 BP 136/73 03/16/25 11:12 Pulse Ox 95 03/16/25 11:12 O2 Del Method Nasal Cannula 03/16/25 11:12 O2 Flow Rate 1 03/16/25 11:12 03/16/25 03/16/25 03/16/25 06:59 14:59 22:59 Intake Total 350 / 1900 830 / 830 Output Total 400 / 7700 4500 / 4500 Balance -50 / -5800 -3670 / -3670 Weight last 48 hrs Weight 223.802 kg Weight 224.982 kg Physical Exam 2 Const: COMMON NORMALS: no acute distress, patient oriented x3 and alert G ENERAL APPEARANCE: cooperative, comfortable, disheveled and appears older than stated age NUTRITIONAL APPEARANCE: obese morbidly obese O RIENTATION/CONSCIOUSNESS: Yes awake, Yes oriented to person, Yes oriented to place and Yes oriented to time HENMT: HEAD & SCALP: normal to inspection OTHER: wearing a nasal cannula Eye: GENERAL EYE: appearance normal, both eyes and all related structures Neck/C-Spine: GENERAL: Yes trachea midline Lymph: LYMPHATIC: lymphedema (Bilateral lower extremities) Chest: CHEST: Yes Symmetrical chest wall rise Resp: COMMON NORMALS: normal respiratory effort and No use of accessory muscles EFFORT & INSPECTION: Yes able to speak in complete sentences and Yes symmetric chest movement Cardio: COMMON NORMALS: regular rate RATE: regular rate Extremity: COMMON NORMALS: capillary refill normal NARRATIVE EXTREMITY EXAM: Bilateral lower extremities: 2+ edema, hyperkeratosis, hypertrophy of skin causing skin folds, pigmentation changes, papillomatosis, Left lower extremity: Open ulceration to medial lower leg and anterior lower leg GENERAL: Yes edema LEFT LOWER EXTREMITY: Yes foot & digits (Capillary refill less than 3 seconds) Neuro: COMMON NORMALS: patient oriented x3 SENSORIUM/ORIENTATION: Yes alert, Yes oriented to person, Yes oriented to place and Yes oriented to time Psych: COMMON NORMALS: mental status grossly normal, Normal thought process present, cooperative, normal affect and speech normal ATTITUDE: Yes calm and Yes engaged ACTIVITY/MOTOR BEHAVIOR: Yes appropriate eye contact SPEECH: Y es normal speech THOUGHT PROCESS: Normal thought process present THOUGHT CONTENT: Yes Normal thought content present ATTENTION/CONCENTRATION: Yes attention grossly intact MEMORY/COGNITION: Yes memory grossly intact I NSIGHT: Good insight present (Psych) JUDGEMENT: Good judgement present (Psych) Skin: GENERAL SKIN EXAM: crusts (Bilateral lower extremities) and dry skin (Bilateral lower extremities) WOUNDS: Yes wounds noted (See wound assessment) Data 03/16/25 05:04 03/16/25 05:04 Micro: Microbiology 03/10/25 17:27 Blood Culture - Final Blood NO GROWTH AFTER 5 DAYS 03/12/25 15:20 Gram Stain - Final Ankle - Drainage Wound Culture - Final Pseudomonas aeruginosa Serratia marcescens Strep agalactiae - (group b)#2 A&P Assessment and plan (1) Open wound of left lower extremity with complication: Upon lymphedema wrap removal of the left lower extremity, it appears the desquamated layer of epidermis has from her dermal layer in areas and moisture is accumulating between the layers most notably on the left anterior lower leg and the left medial lower leg. Erythema to left lower leg though from reports of patient, this is improved. No warmth is appreciated today. Purulent drainage was noted upon dressing removal to the left medial ankle. No purulent drainage was noted to the ulceration found on the left anterior lower leg. The ulceration to the left medial lower leg is in the area where her dog scratched her approximately 1 week ago. She has no pain with palpation of the left anterior lower leg. She has pain with palpation to the left medial lower leg wound. Her leg was cleansed thoroughly with saline and gauze and a large amount of desquamated epidermis was easily removed during this. I spoke with Dr. Goodson via telephone to discuss this. Per our conversation it was decided that given Ms. Felipe's current health status, it would be more advantageous to perform a bedside debridement rather than her undergoing a surgical debridement at this time. Risks and benefits of debridement were discussed with the patient. Ms. Felipe was agreeable to debridement and gave verbal consent as well as written consent for the debridement of the open ulcerations to her left lower extremity. Topical lidocaine gel was applied to both wounds. A curette was utilized to remove nonviable epidermis, dermis, as well as exudative material and adherent slough. She tolerated the debridement well with mild discomfort and minimal bleeding controlled with pressure. Postdebridement, the right anterior lower leg wound has a modest amount of epithelialization noted throughout. Maxorb AG was applied to the open wounds and covered with an ABD pad, Kerlix, and secured with an Wilfredo wrap. No signs of distal ischemia are present after Wilfredo bandage was placed. Her left ankle crease is macerated, though the epidermal layer remains intact. This area was not debrided today. I recommend that lymphedema therapy be held today to ensure moisture control in this area can be achieved. I have educated nursing staff including the charge nurse and tax staff accountant that gauze needs to be placed in this area, secured with an Wilfredo bandage, and changed 3 times per shift. I have asked that the gauze be changed once before the end day shift today and to paint the area with Betadine. I have asked her to pass it off to the oncoming manager shift nurse to change it 3 times over the night. The charge nurse will be working tomorrow and will ensure the oncoming day shift nurse will change it once in the morning. The occupational therapist providing lymphedema treatment and myself will see Ms. Felipe at 11:00 tomorrow to reevaluate the condition of her lower extremity and potentially resume lymphedema therapy to the left lower extremity if moisture in this area has decreased. I have discussed this plan with Dr. Goodson. Specific orders for this have been written. Ms. Felipe was educated to keep her left lower extremity elevated as much as possible until she is reevaluated tomorrow. Ms. Felipe will need outpatient wound care follow-up once discharged. A referral has been placed. (2) Lymphedema: Plan Wound Debridement Continued: Post debridement measurements: Left anterior lower leg: length: 16cm width: 11cm depth: 0.1cm Percentage of wound debrided: 100 Left medial lower leg: length: 13cm width: 12 cm depth: 0.1cm Percentage of wound debrided: 100 Post debridement photos: PDMP PDMP Reviewed: Not Reviewed Consult Attestations 2 Time Spent in Patient Care: Greater than 35 minutes (>than 50% of time spent in counselling and/or direct pt care on unit) . Coding Level of Care Code Acute Code for Chg Fwd Diagnoses Open wound of left lower extremity with complication S81.802A Lymphedema I89.0 Wound Assessment Wound Assessment Wound Number 1 Lower Leg: Descriptor: Left and Anterior Primary Etiology:: Cellulitis Secondary Etiology:: Lymphedema Length: (cm): 14 cm Width: (cm): 9 cm Depth: (cm): 0.1 cm Epithelialization:: None Tunneling:: No Undermining:: No Limited to Skin Breakdown: Yes Exudate Amount:: Medium Drainage Type: Serosanguineous Foul Odor After Cleansing:: No Slough/Fibrin?: Yes Granulation Amount: None Necrotic Amount:: Medium (34-66%) Necrotic Type:: Adherent Slough Wound Number 2 Lower Leg: Descriptor: Left and Medial Primary Etiology:: Cellulitis Secondary Etiology:: Lymphedema Length: (cm): 11 cm Width: (cm): 13 cm Depth: (cm): 0.1 cm Epithelialization:: None Tunneling:: No Undermining:: No Limited to Skin Breakdown: Yes Exudate Amount:: Medium Drainage Type: Purulent Foul Odor After Cleansing:: Yes Slough/Fibrin?: Yes Granulation Amount: None Necrotic Amount:: Large (67-100%) Necrotic Type:: Adherent Slough Wound Orders All Wounds: Left anterior lower leg, left medial lower leg Dressing change frequency: Daily Wound Cleansing: Saline Primary Wound Care Dressing: Maxorb AG Secondary Wound Care Dressing: ABD, Kerlix, Wilfredo bandages Edema Control: Elevate legs to heart level for 30 mins daily and/or when sitting and Other Edema Control Order/Instructions: (Wilfredo bandage ) Non Wound Condition 1: Left medial ankle crease Dressing change frequency: Other (3 times per shift) Skin Barriers/Dayana-Wound Care: Betadine Primary Wound Care Dressing: Gauze Secondary Wound Care Dressing: Wilfredo wrap Wound Care Debridement Wound Number: Wound Number: All Wounds (Left anterior lower leg and left medial lower leg) Procedure Details: Severity of tissue Pre-Debridement: Limited to breakdown of skin Level of Consciousness:: Awake and Alert Pre-Procedure Verification/Time-Out Taken:: Yes Time: 15:45 Pain Control: Lidocaine 2% topical gel Tissue and other material debrided:: Non-Viable, Fibrin/Exudate, Skin: Dermis, Skin: Epidermis and Slough Debridement description:: Selective/Open Wound Intrument:: jassi Specimen:: None Blood Loss: Minimal Hemostasis Achieved:: Pressure Procedural Pain: 2 Post Procedural Pain: 0 Reponse to treatment:: Procedure tolerated well Level of Consciousness:: Awake and Alert Character of Wound/Ulcer Post Debridement:: Improved Severity of tissue Post Debridement: Limited to breakdown of skin Post Procedure Diagnosis: Same as pre-procedure
[2025-03-16] MEDS: HYDROcodone-acetaminophen 10-325 mg Tablet 1 TAB PO (17:01)
--- NOTE | 2025-03-16 23:27 | PC.NURSE ---
ICU nurse Johnathon HERNANDEZ in room to start an ultrasound guided IV line. a 20g to her right upper arm obtained. will now administer late IV meds
[2025-03-16] MEDS: trazodone 100 mg Tablet PO (23:58)
[2025-03-17] MEDS: HYDROcodone-acetaminophen 10-325 mg Tablet 1 TAB PO ×2 (00:03→08:51)
--- NOTE | 2025-03-17 00:12 | PC.NURSE ---
patient in bed with eyes open watching tv. this nurse in room to change wound dressing on the left ankle. nurse takes off delia bandage and soaks the dried gauze with sterile water then removes old gauze, no bloody drainage noted, drainage is yellow brown tinged, nurse replaces old gauze with a clean dry super fluff gauze pad then wraps the ankle with delia bandage. patient tolerated well. patient asking for a pain pill at this time. nurse administered 10/325 hydocodone PO. patient tolerated well. has no other concerns or complaints at this time.
--- NOTE | 2025-03-17 00:16 | PC.NURSE ---
patient lost iv access during dayshift on 03/16/2025, patient had IV vancomyocin ordered and wasn't given. pharmacy notified and told this nurse to no administer medication due to the next dose being soon. this nurse wasted medication in Pyxis machine.
[2025-03-17] MEDS: vancomycin 1,750 MG/350 ML PIGGYBACK 175 MG IV ×2 (01:16→08:51)
[2025-03-17 01:58] LABS: Vancomycin Trough 8.1 ug/mL (10-15)
[2025-03-17 03:52] VITALS: BP 148/72; PULSE 89; RESP 18; TEMP 36.7; O2SAT 94
--- NOTE | 2025-03-17 04:18 | PC.NURSE ---
patient in bed with eyes closed, this nurse in room to change dressing to left ankle. nurse unwraps ankle, soaks old gauze in sterril water and removes old gauze, blood tinged yellow drainage on gauze. nurse cleans wound with betadine and places a new super fluff gauze pad into wound and wraps ankle in delia bandage. patient tolerated well.
[2025-03-17] MEDS: cefepime 2,000 mg SDV 2000 MG IVP ×2 (05:40→12:14)
[2025-03-17 08:11] VITALS: BP 153/79; PULSE 72; RESP 18; TEMP 36.6; O2SAT 92
[2025-03-17] MEDS: budesonide 0.5 mg/2 mL Neb INHALATION (08:33)
[2025-03-17] MEDS: albuterol 2.5 mg/3 mL Neb INHALATION (08:33)
[2025-03-17 08:35] VITALS: PULSE 81; RESP 18; O2SAT 95
[2025-03-17] MEDS: mupirocin oint 22 gm 1 APPLIC TOPICAL (08:42)
[2025-03-17 08:43] VITALS: BP 153/79
[2025-03-17] MEDS: fluconazole 100 mg Tablet PO (08:43)
[2025-03-17] MEDS: pantoprazole DR 40 mg Tablet PO (08:43)
[2025-03-17] MEDS: pregabalin 50 mg Capsule PO (08:43)
[2025-03-17] MEDS: potassium chloride ER 20 mEq Tablet PO (08:43)
[2025-03-17] MEDS: losartan 50 mg Tablet 100 MG PO (08:43)
[2025-03-17] MEDS: bumetanide 1 mg Tablet 2 MG PO (08:43)
[2025-03-17] MEDS: nystatin powder 15 gm Btl 1 APPLIC TOPICAL (08:53)
--- NOTE | 2025-03-17 11:33 | P.PN_ITS ---
<Statement entered by Bhavesh Will MD - 03/17/25 13:05> I have reviewed the documentation and plan of care and agree with the assessment and plan of care as written. Dr. Bhavesh Will Subjective 2 Subjective: Ms. Felipe was evaluated at bedside on [facility] today. Dressing was changed 3 times overnight to area of moisture in left medial ankle. No strikethrough drainage appreciated on dressing to left medial lower leg or left anterior lower leg. Occupational therapist and hospitalist, Dr. Goodson present during visit. Vitals/I&O/Wt Last Vital Signs Temp 98 F 03/17/25 08:11 Pulse 81 03/17/25 08:35 Resp 18 03/17/25 08:35 BP 153/79 03/17/25 08:43 Pulse Ox 95 03/17/25 08:35 O2 Del Method Nasal Cannula 03/17/25 08:35 O2 Flow Rate 1 03/17/25 08:35 03/16/25 03/17/25 03/17/25 22:59 06:59 14:59 Intake Total 506.25 / 1336.25 800 / 2136.25 360 / 360 Output Total 1550 / 6050 Balance -1043.75 / -4713.75 800 / -3913.75 360 / 360 Weight last 48 hrs Weight 220.446 kg Weight 223.802 kg Physical Exam 2 Const: COMMON NORMALS: no acute distress, patient oriented x3 and alert G ENERAL APPEARANCE: cooperative, comfortable, disheveled and appears older than stated age NUTRITIONAL APPEARANCE: obese morbidly obese O RIENTATION/CONSCIOUSNESS: Yes awake, Yes oriented to person, Yes oriented to place and Yes oriented to time HENMT: HEAD & SCALP: normal to inspection OTHER: wearing a nasal cannula Eye: GENERAL EYE: appearance normal, both eyes and all related structures Neck/C-Spine: GENERAL: Yes trachea midline Lymph: LYMPHATIC: lymphedema (Bilateral lower extremities) Chest: CHEST: Yes Symmetrical chest wall rise Resp: COMMON NORMALS: normal respiratory effort and No use of accessory muscles EFFORT & INSPECTION: Yes able to speak in complete sentences and Yes symmetric chest movement Cardio: COMMON NORMALS: regular rate RATE: regular rate PERIPHERAL PULSES: dorsalis pedis present positive left dopplerable (Biphasic) Extremity: COMMON NORMALS: capillary refill normal NARRATIVE EXTREMITY EXAM: Bilateral lower extremities: 2+ edema, hyperkeratosis, hypertrophy of skin causing skin folds, pigmentation changes, papillomatosis, Left lower extremity: Open ulceration to medial lower leg and anterior lower leg GENERAL: Yes edema LEFT LOWER EXTREMITY: Yes foot & digits (Capillary refill less than 3 seconds) Neuro: COMMON NORMALS: patient oriented x3 SENSORIUM/ORIENTATION: Yes alert, Yes oriented to person, Yes oriented to place and Yes oriented to time Psych: COMMON NORMALS: mental status grossly normal, Normal thought process present, cooperative, normal affect and speech normal ATTITUDE: Yes calm and Yes engaged ACTIVITY/MOTOR BEHAVIOR: Yes appropriate eye contact SPEECH: Y es normal speech THOUGHT PROCESS: Normal thought process present THOUGHT CONTENT: Yes Normal thought content present ATTENTION/CONCENTRATION: Yes attention grossly intact MEMORY/COGNITION: Yes memory grossly intact I NSIGHT: Good insight present (Psych) JUDGEMENT: Good judgement present (Psych) Skin: GENERAL SKIN EXAM: crusts (Bilateral lower extremities) and dry skin (Bilateral lower extremities) WOUNDS: Yes wounds noted (See wound assessment) Data 03/16/25 05:04 03/16/25 05:04 Micro: Microbiology 03/12/25 05:26 Blood Culture - Final Blood NO GROWTH AFTER 5 DAYS 03/12/25 05:20 Blood Culture - Final Blood NO GROWTH AFTER 5 DAYS A&P Assessment and plan (1) Open wound of left lower extremity with complication: Decreased erythema to left lower leg. No warmth appreciated upon palpation. No purulent drainage noted from left medial lower leg wound over left anterior lower leg wound. Increasing epithelialization throughout to the left anterior lower leg. There is less nonviable material noted to the left medial lower leg wound. The moisture in the left medial ankle crease has decreased. She has biphasic dopplerable dorsalis pedis pulses and less than 3-second capillary refill to her left distal digits. Dr. Goodson consulted with dermatology who was advised to have patient apply urea cream and AmLactin lotion to crusting on left lower leg. Patient was unable to get urea cream from the pharmacy but did have AmLactin in the room. She will follow-up with dermatology outpatient regarding venous stasis dermatitis per Dr. Goodson. Wounds were cleansed with saline and gauze. Maxorb was applied to open ulcerations. AmLactin was applied to entire left lower leg except for open ulcerations. [place] lock was applied over left medial ankle for moisture control. ABD pad was applied over left anterior lower leg wound for moisture control. Dressings were secured with Kerlix. Occupational therapist applied lymphedema wraps to left lower extremity. Ms. Felipe will be discharged today. She will follow-up with [facility] wound care outpatient on March 21 at 9 AM. She will then go to the [facility] after this appointment to see the occupational therapist for a lymphedema wrap application. Will then have Ms. Felipe follow-up with the outpatient physical therapist for continued lymphedema treatment and wrap applications. I educated Ms. Felipe that if she was to see strikethrough drainage to her left lower extremity, her daughter or her sister should remove the entire wrap cleanse the area with saline and gauze and apply the ordered wound care dressings and secure with an Wilfredo wrap and change daily until her appointment on Friday. [facility] medical equipment will be delivering wound care supplies to patient's room before discharge. Pt was educated to elevate legs frequently to prevent and control swelling, position legs above the level of her heart, using pillows or a wedge for support, for about 15-30 minutes, 3-4 times a day and as needed. (2) Lymphedema: PDMP PDMP Reviewed: Not Reviewed Attestations 2 Medical Necessity Statement*: Time Spent in Patient Care: 16 - 35 minutes Coding Level of Care Code Acute Code for Chg Fwd Diagnoses Open wound of left lower extremity with complication S81.802A Lymphedema I89.0 Wound Assessment Wound Assessment Wound Number 1 Lower Leg: Descriptor: Left and Anterior Primary Etiology:: Cellulitis Secondary Etiology:: Lymphedema Length: (cm): 14 cm Width: (cm): 11 cm Depth: (cm): 0.1 cm Epithelialization:: Medium (34-66%) Tunneling:: No Undermining:: No Limited to Skin Breakdown: Yes Exudate Amount:: Medium Drainage Type: Serosanguineous Foul Odor After Cleansing:: No Slough/Fibrin?: Yes Granulation Amount: None Necrotic Amount:: Small (1-33%) Necrotic Type:: Adherent Slough Wound Number 2 Lower Leg: Descriptor: Left and Medial Primary Etiology:: Cellulitis Secondary Etiology:: Lymphedema Length: (cm): 13 cm Width: (cm): 12 cm Depth: (cm): 0.1 cm Epithelialization:: Small (1-33%) Tunneling:: No Undermining:: No Limited to Skin Breakdown: Yes Exudate Amount:: Medium Drainage Type: Serosanguineous Foul Odor After Cleansing:: Yes Slough/Fibrin?: Yes Granulation Amount: None Necrotic Amount:: Small (1-33%) Necrotic Type:: Adherent Slough Wound Orders All Wounds: Left anterior lower leg, left medial lower leg Dressing change frequency: Daily Wound Cleansing: Saline Primary Wound Care Dressing: Maxorb AG Secondary Wound Care Dressing: ABD, hydralock, Kerlix, lymphedema wraps Edema Control: Elevate legs to heart level for 30 mins daily and/or when sitting and Other Edema Control Order/Instructions: (Wilfredo bandage ) Non Wound Condition 1: Left medial ankle crease Dressing change frequency: Other (3 times per shift) Primary Wound Care Dressing: Gauze Secondary Wound Care Dressing: lymphedema wraps
[2025-03-17] MEDS: enoxaparin 40 mg/0.4 mL Syringe SUBCUT (12:14)
[2025-03-17 12:18] VITALS: BP 150/77; PULSE 83; RESP 18; TEMP 36.5; O2SAT 94
[2025-03-17 13:31] VITALS: BP 150/77; PULSE 83; RESP 18; TEMP 36.5; O2SAT 94
--- NOTE | 2025-03-17 14:59 | PM.DCS ---
Discharge Providers Date of Admission: 03/11/25 10:13 Date of Discharge: March 17, 2025 Attending Provider at Admission: Edward Peters MD Attending Provider at Discharge: Jillian Goodson MD Primary Care Provider: ANDRES Hernandez Diagnoses at Discharge Discharge Diagnosis (1) Open wound of left lower extremity with complication: Status: Acute (2) Lymphedema: Status: Acute (3) Cellulitis: Status: Acute Reason for Visit Reason for Visit: leg infection - fever x 3 days Brief History: Ziyad Felipe is a 50 year old female with a past medical history significant for lymphedema, congestive heart failure, hypertension, GERD, chronic pain, morbid obesity, cellulitis, sleep apnea, and multiple other comorbidities who presents to the emergency department with worsening redness, swelling and weeping to the left lower extremity that started after her dog jumped on her. she had high fevers to 104. She endorses associated chills. She was started on treatment with cefepime and vancomycin. Blood culture returned positive for staph lugdunensis. Overall picture consistent with cellulitis with resulting bacteremia. Her cellulitis was slow to improve during the course of admission. Fluconazole was additionally added due to noted intercrural candidiasis. Wound care was consulted, please see their notes for details, bedside debridement was performed and patient has been set up with wound care clinic as an outpatient. Additionally patient was restarted on lymphedema wraps during course of this admission and has been referred for continued lymphedema therapy with OT as outpatient. Patient has also been set up with dermatology as outpatient for long-term management of stasis dermatitis resulting from the lymphedema. Urea 40% ointment and ammonium lactate 12% has been added at the time of discharge for skin care. Antibiotics have been transitioned to oral ciprofloxacin and linezolid for 7 days at discharge. Long-term chronic suppression was discussed with the patient and she opted for a pill in pocket approach of suppressive therapy with cefadroxil 1 g p.o. twice daily. Patient has been instructed to start cefadroxil at the first signs of impending cellulitis and continue course for 7 days. If she ends up requiring pill in pocket very frequently, may need to switch to a daily suppressive approach. She received diuresis with Bumex which helped ease some of the lower extremity edema. Patient has a history of chronic diastolic heart failure, current picture appears to be more consistent with recent lymphedema than CHF exacerbation. Recommend close follow-up with primary care physician, wound care clinic Physical Exam Narrative: General: No acute distress, AO x3 HEENT: PERRLA, pupils bilaterally equal and reactive, pallors not present Chest: Normal vesicular breath sounds, no added sounds, equal good air entry bilaterally CVS: S1-S2 regular, no murmurs, no tachycardia, no gallops, no rubs Abdomen: Soft, nontender, no organomegaly, bowel sounds present Neuro: No focal deficits, no facial deformity, AO x3, power 5/5 in all limbs Extremities: Bilateral lower extremity lymphedema, appears improved compared to admission, however still with significant edema and changes of stasis dermatitis. Urinary Catheter Management: [place]: Cath Placed During This Visit: yes Reason for Continuing Indwelling Catheter: Other Urinary Catheter Date of Insertion: 03/11/25 Urinary Catheter Time of Insertion: 11:09 Discharge Data Studies Completed and Pending Laboratory Results WBC 9.59 10^3/uL (3.29-11.43) 03/16/25 05:04 RBC 3.81 10^6/uL (3.85-5.65) L 03/16/25 05:04 Hgb 9.70 g/dL (11.27-16.99) L 03/16/25 05:04 Hct 32.5 % (36-47) L 03/16/25 05:04 MCV 85.3 fl (85-98) 03/16/25 05:04 MCH 25.5 pg (27-33) L 03/16/25 05:04 MCHC 29.8 g/dL (30-55) L 03/16/25 05:04 RDW 16.2 % (12.1-15.1) H 03/16/25 05:04 Plt Count 289 10^3/cmm (157-399) 03/16/25 05:04 MPV 8.9 fL (7.4-10.4) 03/16/25 05:04 Neut % (Auto) 73.2 % 03/16/25 05:04 Lymph % (Auto) 13.9 % 03/16/25 05:04 [place] % (Auto) 7.6 % 03/16/25 05:04 Eos % (Auto) 4.4 % 03/16/25 05:04 Baso % (Auto) 0.3 % 03/16/25 05:04 Neut # (Auto) 7.02 10^3/uL (1.8-7.7) 03/16/25 05:04 Lymph # (Auto) 1.3 10^3/uL (0.8-4.8) 03/16/25 05:04 [place] # (Auto) 0.7 10^3/uL (0.2-0.9) 03/16/25 05:04 Eos # (Auto) 0.4 10^3/uL (0.0-0.8) 03/16/25 05:04 Baso # (Auto) 0.0 10^3/uL (0.0-0.1) 03/16/25 05:04 Nucleated RBC % (auto) 0 % 03/16/25 05:04 Nucleated RBCs # 0.0 /100WBC 03/16/25 05:04 ESR 94 mm/hr (0-15) H 03/10/25 17:27 Sodium 141 mmol/L (136-145) 03/16/25 05:04 Potassium 4.0 mmol/L (3.5-5.1) 03/16/25 05:04 Chloride 104 mmol/L (98-107) 03/16/25 05:04 Carbon Dioxide 27 mmol/L (22-29) 03/16/25 05:04 Anion Gap 14.0 (5-19) 03/16/25 05:04 BUN 8 mg/dL (6-20) 03/16/25 05:04 Creatinine 0.5 mg/dL (0.5-0.9) 03/16/25 05:04 GFR Calculation 129.6 mL/min (90-130) 03/16/25 05:04 Glucose 113 mg/dL (65-115) 03/16/25 05:04 Calculated Osmolality 291 mOsm/kg (285-295) 03/16/25 05:04 Lactic Acid 0.9 mmol/L (0.5-2.2) 03/10/25 17:27 Calcium 8.0 mg/dL (8.5-10.5) L 03/16/25 05:04 Phosphorus 3.6 mg/dL (2.5-4.5) 03/13/25 04:54 Total Bilirubin 0.3 mg/dL (0.15-1.2) 03/16/25 05:04 AST 16 U/L (0-32) 03/16/25 05:04 ALT 17 U/L (0-33) 03/16/25 05:04 Alkaline Phosphatase 56 U/L (35-105) 03/16/25 05:04 C-Reactive Protein 36.7 mg/L (0.0-4.9) H 03/10/25 17:27 Total Protein 6.8 g/dL (6.6-8.7) 03/16/25 05:04 Albumin 2.9 g/dL (3.5-5.2) L 03/16/25 05:04 Globulin 3.9 g/dL (1.3-4.6) 03/16/25 05:04 Procalcitonin 1.05 ng/mL (0-0.5) H 03/10/25 17:27 Nasal MRSA (PCR) Mrsa detected (Not Detecte) A 03/10/25 21:55 Vancomycin Trough 8.1 ug/mL (10-15) L 03/17/25 00:55 Vitals Last Vital Signs Temp 97.7 F 03/17/25 13:31 Pulse 83 03/17/25 13:31 Resp 18 03/17/25 13:31 BP 150/77 03/17/25 13:31 Pulse Ox 94 03/17/25 13:31 O2 Del Method Nasal Cannula 03/17/25 12:18 O2 Flow Rate 1 03/17/25 08:35 Discharge Plan Discharge Patient Disposition: Home Condition: Stable Prescriptions: New fluconazole 100 mg Tablet 100 mg PO DAILY 10 Days Qty: 10 0RF potassium chloride [Klor-Con M20] 20 mEq Tablet,Er Particles/Crystals 20 meq PO DAILY 30 Days Qty: 0 0RF ciprofloxacin HCl 500 mg tablet 500 mg PO BID 7 Days Qty: 14 0RF linezolid 600 mg tablet 600 mg PO Q12H 7 Days Qty: 14 0RF cefadroxil 500 mg capsule 1,000 mg PO Q12H PRN (Reason: cellulitis) 7 Days Qty: 28 6RF Rx Instructions: start at first signs of cellulitis, continue for 7 days urea 40 % cream 1 applic topical BID Qty: 28 0RF ammonium lactate 12 % cream 1 applic topical DAILY Qty: 280 0RF Continued trazodone 100 mg tablet See Rx Instructions .ROUTE .COMPLEX Qty: 90 1RF Dose Instruction: TAKE ONE TABLET BY MOUTH AT BEDTIME Rx Instructions: TAKE ONE TABLET BY MOUTH AT BEDTIME ondansetron HCl 4 mg tablet See Rx Instructions .ROUTE .COMPLEX Qty: 30 0RF Dose Instruction: TAKE ONE TABLET BY MOUTH EVERY 8 HOURS NEEDED FOR NAUSEA AND VOMITING Rx Instructions: TAKE ONE TABLET BY MOUTH EVERY 8 HOURS NEEDED FOR NAUSEA AND VOMITING pantoprazole 40 mg tablet,delayed release (DR/EC) See Rx Instructions .ROUTE .COMPLEX Qty: 60 0RF Dose Instruction: TAKE 1 TABLET BY MOUTH TWICE DAILY Rx Instructions: TAKE 1 TABLET BY MOUTH TWICE DAILY solifenacin 10 mg tablet See Rx Instructions .ROUTE .COMPLEX Qty: 30 0RF Dose Instruction: TAKE 1 TABLET BY MOUTH EVERY DAY Rx Instructions: TAKE 1 TABLET BY MOUTH EVERY DAY pregabalin 50 mg capsule 50 mg PO BID Qty: 60 0RF cholecalciferol (vitamin D3) 1,250 mcg (50,000 unit) capsule 50,000 unit PO .once weekly Qty: 12 0RF budesonide-formoterol [Breyna] 160-4.5 mcg/actuation HFA aerosol inhaler See Rx Instructions .ROUTE .COMPLEX Qty: 10.2 1RF Dose Instruction: INHALE TWO PUFFS into lungs TWICE DAILY Rx Instructions: INHALE TWO PUFFS into lungs TWICE DAILY tramadol 50 mg tablet 50 mg PO TID PRN (Reason: Pain) hydrocodone-acetaminophen 10-325 mg tablet 1 tab PO QID PRN (Reason: pain) naloxone 4 mg/actuation spray,non-aerosol 4 mg intranasal Q2M PRN (Reason: Opioid Overdose) Rx Instructions: spray 1 dose into ONE nostril; alternate nostrils w each dose until help arrives bumetanide 2 mg tablet 2 mg PO DAILY Qty: 120 3RF losartan 100 mg tablet 100 mg PO DAILY Rx Instructions: TAKE 1 TABLET BY MOUTH DAILY Held tizanidine 4 mg tablet See Rx Instructions .ROUTE .COMPLEX Qty: 20 0RF Hold Instructions: Resume on 03/23/25. hold while on cipro Dose Instruction: TAKE 1 TABLET BY MOUTH THREE TIMES DAILY as needed for MUSCLE SPASMS Rx Instructions: TAKE 1 TABLET BY MOUTH THREE TIMES DAILY as needed for MUSCLE SPASMS No Action Ventolin HFA 90 mcg/actuation HFA aerosol inhaler See Rx Instructions .ROUTE .COMPLEX Qty: 18 3RF Dose Instruction: INHALE TWO PUFFS EVERY 4 HOURS NEEDED FOR SHORTNESS OF BREATH OR WHEEZING Rx Instructions: INHALE TWO PUFFS EVERY 4 HOURS NEEDED FOR SHORTNESS OF BREATH OR WHEEZING Discharge Orders: Discharge Order (Routine); Ordered 03/17/25 Ordered By: Jillian Goodson Other Ambulatory Orders: DME: Miscellaneous (Order) Location: None Selected Ordered By: Av Garza Occupational Therapy Eval and Treat Outpatient (Order) Timeframe: 2 Days Facility: [facility] - Location: Occupational Therapy [place] Ordered By: Jillian Goodson Referrals: [facility]- PT/OT [Other] - 03/21/25 2:30 pm Referral Note: Lymphedema therapy Av Garza FNP [Nurse Practitioner, Wound Care] - 03/21/25 1:00 pm Referral Note: Mere Reich DO [Physician, Dermatology] - 03/21/25 9:45 am Referral Note: stasis dermatitis from lymphedema- case discussed with Charissa Javed FNP [Primary Care Provider, Family Practice] Referral Note: We have notified your physician's clinic of the need for a follow-up appointment to be scheduled. If you have not heard from them within the next 2 business days, please call them directly. Discharge Activity: Increase activity as tolerated Patient Instructions: Cefadroxil (By mouth), Ciprofloxacin (By mouth), Fluconazole (By mouth), Linezolid (By mouth), Ammonium Lactate (On the skin), Opioid Safety, Pain Management Activity Restrictions/Additional Instructions: Wound Orders All Wounds: Left anterior lower leg, left medial lower leg Dressing change frequency: Daily with lymphedema wrap changes Wound Cleansing: Saline and gauze Primary Wound Care Dressing: Maxorb AG Secondary Wound Care Dressing: ABD, Kerlix, lymphedema wraps Edema Control: Elevate legs to heart level for 30 mins daily and/or when sitting and Other Edema Control Order/Instructions: (Wilfredo bandage ) Non Wound Condition 1: Left medial ankle crease Dressing change frequency: Daily with lymphedema wrap changes Primary Wound Care Dressing: Gauze Secondary Wound Care Dressing: lymphedema wraps Discharge Attestations Time Spent in Discharge Care*: greater than 30 min Quality Metrics Clinical Quality Measures [ No reported AMI, CVA or VTE this stay] Coding Level of Care Code Acute Code for Chg Fwd Diagnoses Open wound of left lower extremity with complication S81.802A Lymphedema I89.0 Cellulitis L03.90
== END 2025-03-17 13:33 | disposition home or self-care (01) | DRG 602 ==
LOC: ER 19:25 → MEDSURG 19:49
PROVIDERS: Student in an Organized Health Care Education/Training Program; Admitting Provider Internal Medicine; Emergency Provider Student in an Organized Health Care Education/Training Program; PCP Nurse Practitioner Family; Visit Provider Student in an Organized Health Care Education/Training Program
DX: L03.116 Cellulitis of left lower limb (principal); I50.23 Acute on chronic systolic (congestive) heart failure; E66.2 Morbid (severe) obesity with alveolar hypoventilation; Z68.44 Body mass index [BMI] 60.0-69.9, adult; I11.0 Hypertensive heart disease with heart failure; K21.9 Gastro-esophageal reflux disease without esophagitis; G89.29 Other chronic pain; B95.8 Unspecified staphylococcus as the cause of diseases classified elsewhere; B96.5 Pseudomonas (aeruginosa) (mallei) (pseudomallei) as the cause of diseases classified elsewhere; B95.1 Streptococcus, group B, as the cause of diseases classified elsewhere; B37.2 Candidiasis of skin and nail; I87.2 Venous insufficiency (chronic) (peripheral); Z79.891 Long term (current) use of opiate analgesic; Z87.891 Personal history of nicotine dependence; E28.2 Polycystic ovarian syndrome; M17.0 Bilateral primary osteoarthritis of knee; Z98.84 Bariatric surgery status; F40.240 Claustrophobia
CPT/HCPCS: 36415; 51702; 80053; 80069; 80202; 83605; 84145; 85025; 85651; 86140; 87040; 87070; 87075; 87077; 87150; 87186; 87205; 94640; 96365; 96367; 96372; 97110; 97124; 97167; 99285; A9281; G0378; J0692; J1650; J2405; J2543; J3372; J3490; J7030; J7613; J7626; J9999

== ENCOUNTER 2025-03-21 15:35 | Outpatient (RCR) | payer MEDICARE, MEDICAID, SELFPAY | END 2025-04-02 23:59 | disposition home or self-care (01) | LOC: SPO 15:35 | DX: I89.0 Lymphedema, not elsewhere classified (principal) | CPT/HCPCS: 97124; 97140; 97161; 97167; 97597; 97598; 99213; A6251; A6253 ==

== ENCOUNTER → 2025-03-29 14:54 | Outpatient (BNVA) | payer MEDICARE, MEDICAID, SELFPAY | PROVIDERS: Visit Provider Thoracic Surgery (Cardiothoracic Vascular Surgery) | DX: I89.0 Lymphedema, not elsewhere classified (principal); L97.821 Non-pressure chronic ulcer of other part of left lower leg limited to breakdown of skin; L03.116 Cellulitis of left lower limb | CPT/HCPCS: 97597; A6253 ==

== ENCOUNTER 2025-04-03 05:00 | Outpatient (RCR) | payer MEDICARE, MEDICAID, SELFPAY | END 2025-05-02 23:59 | disposition home or self-care (01) | LOC: SPO 05:00 | DX: I89.0 Lymphedema, not elsewhere classified (principal) | CPT/HCPCS: 97140 ==

== ENCOUNTER → 2025-04-05 08:07 | Outpatient (BNVA) | payer MEDICARE, MEDICAID, SELFPAY | PROVIDERS: Visit Provider Thoracic Surgery (Cardiothoracic Vascular Surgery) | DX: I96 Gangrene, not elsewhere classified (principal); L97.821 Non-pressure chronic ulcer of other part of left lower leg limited to breakdown of skin; L03.116 Cellulitis of left lower limb | CPT/HCPCS: 97597 ==

== ENCOUNTER → 2025-04-12 12:49 | Outpatient (BNVA) | payer MEDICARE, MEDICAID, SELFPAY | PROVIDERS: Visit Provider Thoracic Surgery (Cardiothoracic Vascular Surgery) | DX: I96 Gangrene, not elsewhere classified (principal); L97.821 Non-pressure chronic ulcer of other part of left lower leg limited to breakdown of skin; L03.116 Cellulitis of left lower limb | CPT/HCPCS: 97597 ==

== ENCOUNTER → 2025-04-19 13:25 | Outpatient (BNVA) | payer MEDICARE, MEDICAID, SELFPAY | PROVIDERS: Visit Provider Thoracic Surgery (Cardiothoracic Vascular Surgery) | DX: I96 Gangrene, not elsewhere classified (principal); L97.821 Non-pressure chronic ulcer of other part of left lower leg limited to breakdown of skin; L03.116 Cellulitis of left lower limb | CPT/HCPCS: 97597 ==

== ENCOUNTER → 2025-04-26 10:18 | Outpatient (BNVA) | payer MEDICARE, MEDICAID, SELFPAY | PROVIDERS: Visit Provider Thoracic Surgery (Cardiothoracic Vascular Surgery) | DX: Z09 Encounter for follow-up examination after completed treatment for conditions other than malignant neoplasm (principal); Z87.2 Personal history of diseases of the skin and subcutaneous tissue | CPT/HCPCS: 99212 ==

== ENCOUNTER 2025-05-20 12:46 | Outpatient (CLI) | payer MEDICARE, MEDICAID, SELFPAY ==
--- NOTE | 2025-05-20 12:53 | XR_ITS ---
WS: [id number] XR knee RT 3V* [id number] REASON FOR EXAM: BILATERAL KNEE PAIN FINDINGS: No fracture or focal bone lesion. Significant narrowing of the medial knee joint space, likely with [id number] articulation. Moderate subchondral sclerosis and significant marginal osteophytosis. Mild narrowing of the lateral joint space with mild to moderate subchondral sclerosis and significant marginal osteophytosis. Narrowing of the patellofemoral joint space with significant subchondral sclerosis and osteophytosis. Significant osteophytosis of the opposing femoral condyles. XR/XR knee RT 3V* [id number] IMPRESSION: Severe osteoarthritis of the right knee as above.
--- NOTE | 2025-05-20 12:53 | XR_ITS ---
WS: [email or web address] XR knee LT 3V* [id number] REASON FOR EXAM: BILATERAL KNEE PAIN FINDINGS: No fracture or focal bone lesion. Significant narrowing of the medial joint space, likely [id number] articulation, with mild subchondral sclerosis and significant marginal osteophytosis. Mild to moderate narrowing of the lateral knee joint space with mild subchondral sclerosis and significant marginal osteophytosis. The patellofemoral joint space appears narrowed with significant subchondral sclerosis and osteophytosis of the patella and significant osteophytosis of the opposing femoral condyles. XR/XR knee LT 3V* [id number] IMPRESSION: /Severe osteoarthritis with probable hhmz-fr-ljnw articulation in the medial bibi int space as above.
--- NOTE | 2025-05-20 12:53 | XR_ITS ---
WS: [id number] XR cervical spine min 6V [id number] REASON FOR EXAM: CERVICAL SPONDYLOLYSIS FINDINGS: Mild straightening of the normal lordosis of the cervical spine. No significant vertebral body abnormality. Mild to moderate narrowing of the C5-C6 disc space with moderate subchondral sclerosis and anterior and posterior osteophytosis. There is mild narrowing of the C7-T1 disc space with moderate subchondral sclerosis and anterior phytosis. Mild posterior osteophytosis. Calcification anterior to the C6-C7 disc space and either the annulus or anterior longitudinal ligament. No significant neutral listhesis. XR/XR cervical spine min 6V [id number] IMPRESSION: Cervical degenerative spondylosis as above which is similar to examination of .
== END 2025-05-20 12:47 | disposition home or self-care (01) ==
LOC: RAD 12:51
PROVIDERS: PCP Nurse Practitioner Family; Visit Provider Student in an Organized Health Care Education/Training Program
DX: M43.02 Spondylolysis, cervical region (principal); M48.02 Spinal stenosis, cervical region; M25.78 Osteophyte, vertebrae; M17.0 Bilateral primary osteoarthritis of knee
CPT/HCPCS: 72052; 73562

== ENCOUNTER → 2025-06-08 10:54 | Outpatient (BNVA) | payer MEDICARE, MEDICAID, SELFPAY | PROVIDERS: PCP Nurse Practitioner Family; Visit Provider Nurse Practitioner Family | DX: Z71.3 Dietary counseling and surveillance (principal); I10 Essential (primary) hypertension; Z79.891 Long term (current) use of opiate analgesic; D50.0 Iron deficiency anemia secondary to blood loss (chronic); E55.9 Vitamin D deficiency, unspecified | CPT/HCPCS: 80053; 80061; 82306; 82607; 82728; 82746; 83036; 83550; 83735; 84425; 84443; 84590; 85025 ==

== ENCOUNTER 2025-07-04 19:24 | Inpatient (IN) | payer MEDICARE, MEDICAID, SELFPAY ==
[2025-07-04] VITALS (28 sets, daily range): BP systolic 59–170; BP diastolic 34–109; PULSE 121–169; RESP 18–39; TEMP 37.2; O2SAT 66–100; BMI 69.4
--- NOTE | 2025-07-04 19:31 | ECG_ITS ---
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 Measurements Intervals Watson Rate: 180 P: 0 AZ: 0 QRS: 62 QRSD: 86 T: 61 QT: 250 QTc: 433 Interpretive Statements ATRIAL FIBRILLATION WITH RAPID VENTRICULAR RESPONSE NONSPECIFIC ST & T-WAVE ABNORMALITY CRITICAL TEST RESULT Compared to ECG 05/14/2024 04:04:06 T-wave abnormality now present Sinus rhythm no longer present Electronically Signed On 07-05-2025 21:43:26 CDT by Karime Clay M.D. [email or web address]
--- NOTE | 2025-07-04 19:38 | XRR_ITS ---
PROCEDURE INFORMATION: Exam: XR Chest Exam date and time: 07/04/2025 7:59 PM Age: 50 years old Clinical indication: Cough and dyspnea; Additional info: Dyspnea/cough TECHNIQUE: Imaging protocol: Radiologic exam of the chest. Views: 1 view. COMPARISON: CT angio chest PE protcl [id number] 05/14/2024 5:37 PM FINDINGS: Lungs: Unremarkable. No consolidation. Pleural spaces: Unremarkable. No pleural effusion. No pneumothorax. Heart/Mediastinum: Unremarkable. No cardiomegaly. Bones/joints: Ghee-rd-mpihitsu degenerative changes of thoracic spine. Mild degenerative change of the AC joints. XR/XR chest 1V portable [id number] IMPRESSION: No definite acute infiltrate or effusion.
--- NOTE | 2025-07-04 19:40 | W.ED.GENADLT ---
HPI - General Adult General: Chief complaint: General Medical Stated complaint: low bp Time Seen by Provider: 07/04/25 19:31 History of Present Illness: 50-year-old female presents emergency room with complaint of swelling in her left legs rapid heart rate fever at home and low blood pressure. Patient is chronically on 4 L EMS reports she was 80% on 4 L and increased her to 6. Per EMS caregiver reported slight altered mental status. Patient's lower extremities are wrapped have a significant amount of chronic venous stasis edema red and erythematous. She did take blood pressure medications as well as narcotic pain medications around 4 this afternoon. She has some mild chest and abdominal discomfort as well. She has no known history of atrial fibrillation. On arrival here she is in A-fib with RVR. She is not on any anticoagulants. History of chronic lymphedema. She has been following at the wound clinic however it appears her last visit was in April of this year. Associated symptoms: Reports chest pain, dyspnea, nausea and palpitations; Deny vomiting Related Data Home Medications ?Medication ?Instructions ?Recorded ?Confirmed tramadol 50 mg tablet 50 mg PO TID PRN Pain 12/30/22 06/08/25 hydrocodone 10 mg-acetaminophen 1 tab PO QID PRN pain 06/28/24 06/08/25 325 mg tablet naloxone 4 mg/actuation nasal spray 4 mg intranasal Q2M PRN Opioid 06/28/24 06/08/25 Overdose Previous Rx's ?Medication ?Instructions ?Recorded bumetanide 2 mg tablet 2 mg PO DAILY #120 tabs 05/17/24 pregabalin 50 mg capsule 50 mg PO BID #60 caps 12/09/24 cholecalciferol (vitamin D3) 1,250 50,000 unit PO .once weekly #12 02/23/25 mcg (50,000 unit) capsule caps cefadroxil 500 mg capsule 1,000 mg (2 x 500 mg) PO Q12H PRN 03/16/25 cellulitis 7 days #28 caps albuterol sulfate 90 mcg/actuation See Rx Instructions .Route 03/17/25 aerosol inhaler (Ventolin HFA) .COMPLEX #18 grams ammonium lactate 12 % topical cream 1 applic topical DAILY #280 grams 03/17/25 urea 40 % topical cream 1 applic topical BID skin 03/17/25 irritation #28 grams ondansetron HCl 4 mg tablet See Rx Instructions .Route 06/24/25 .COMPLEX #30 tabs pantoprazole 40 mg tablet,delayed See Rx Instructions .Route 06/24/25 release .COMPLEX #180 tabs solifenacin 10 mg tablet See Rx Instructions .Route 06/24/25 .COMPLEX #90 tabs tizanidine 4 mg tablet See Rx Instructions .Route 06/24/25 .COMPLEX #90 tabs trazodone 100 mg tablet See Rx Instructions .Route 06/24/25 .COMPLEX #90 tabs budesonide-formoterol HFA 160 See Rx Instructions .Route 06/29/25 mcg-4.5 mcg/actuation aerosol .COMPLEX #10.2 grams inhaler (Breyna) losartan 100 mg tablet See Rx Instructions .Route 06/29/25 .COMPLEX #90 tabs Allergies Allergy/AdvReac Type Severity Reaction Status Date / Time red dye Allergy Intermediate rash Verified 06/08/25 09:49 amoxicillin (From Augmentin) Allergy HIVES AND Verified 06/08/25 09:49 ITCHING clavulanic acid (From Allergy HIVES AND Verified 06/08/25 09:49 Augmentin) ITCHING meperidine (From Demerol) Allergy HIVES, Verified 06/08/25 09:49 ITCHING AND SHORTNESS OF BREATH Review of Systems Const: Denies: fever(s) or chills Card: Reports: chest pain, palpitations, irregular heart rhythm, edema, swelling of feet/ankles, dyspnea on exertion and orthopnea Resp: Reports: dyspnea GI: Reports: abdominal pain and nausea; Denies: vomiting, hematemesis, coffee ground emesis, hematochezia or melena : Denies: dysuria, urinary frequency or urinary urgency Musc: Denies: neck pain or back pain Skin/Breast: Reports: erythema, skin tenderness, skin swelling and changing lesions PFSH ED PFSH: Medical History Lymphedema Hypertension Morbid obesity Colon polyps Morbid obesity Venous stasis dermatitis Anasarca Cellulitis of left lower leg Acute diastolic heart failure Cellulitis Bilateral lower leg cellulitis Obesity hypoventilation syndrome Accelerated hypertension Smokes cigarettes Lower limb ulcer, ankle Lymphedema associated with obesity Polycystic ovarian syndrome Longstanding diagnosis, dating back to 2003. Has been on and off treatment for many years. LAURA (obstructive sleep apnea) Osteoarthritis of knees, bilateral Chronic low back pain with left-sided sciatica > 50% of 45 min visit counseling patient regarding weight. Encounter for long-term opiate analgesic use Current every day smoker Degeneration of intervertebral disc of cervical spine without disc herniation Arthralgia of cervical spine Surgical History S/P total abdominal hysterectomy (08/01/20) With RSO. Per[place]. Deshpande [place] [facility] [place], [place]. Path showed polyp with complex hyperplasia with atypia Status post hysteroscopy (~05/09/20) Hysteroscopy with dilation and curettage with Dr. Paul Deshpande at [facility] History of laparoscopic cholecystectomy (~1993) History of D&C (~09/2003) History of laparoscopy (09/21/18) Dx: Small bowel obstruction. Lysis of adhesions. Per[place] Dr. Yee [place] [facility] History of left salpingo-oophorectomy (01/15/06) Laparotomy. Performed by Dr. Lovelace at [facility]. 10 cm left adnexal cystic mass. History of bariatric surgery (~2016) Laparoscopic gastric sleeve. H/O bariatric surgery (09/14/12) Laparoscopic band. H/O section 12/21/1991, 12/14/1993, 04/17/1995. Family History Father Diabetes Hypertension Social History Smoking and tobacco/nicotine status: former use of tobacco/nicotine (quit 15 months ago) Alcohol intake: never Substance/Drug Use: never Physical Exam Const: GENERAL APPEARANCE: cooperative ORIENTATION/CONSCIOUSNESS: Yes awake, Yes oriented to person, Yes oriented to place and Yes oriented to time HENMT: COMMON NORMALS: normocephalic, atraumatic and hearing grossly normal bilaterally HEAD & SCALP: normocephalic and atraumatic Resp: COMMON NORMALS: normal respiratory effort, No retractions, No use of accessory muscles and clear to auscultation bilaterally AUSCULTATION: clear to auscultation bilaterally Cardio: RATE: tachycardic RHYTHM: abnormal rhythm irregularly irregular GI: COMMON NORMALS: Soft to palpation and No hepatosplenomegaly present AUSCULTATION: Yes normoactive bowel sounds PALPATION: Yes Soft to palpation, No Tenderness to palpation present (GI), No Guarding due to palpation present (GI) and Yes No hepatosplenomegaly present Extremity: OTHER: 3+ edema lower extremities with changes of chronic venous stasis edema redness and erythema of the lower extremities from the knee distal Neuro: SENSORIUM/ORIENTATION: Yes oriented to person, Yes oriented to place and Yes oriented to time Skin: OTHER: Examination the sacral area and the back there is no evidence skin breakdown ulceration or decubiti Procedures Central Line Placement Right IJ: Time Out Performed: Yes Patient Placed on Monitor/Pulse Ox: Yes MD Prep: mask, gown and gloves Central Line Prep: Chlorhexidine scrub Local Anesthetic: lidocaine 1% Amount of anesthesia used (mL): 5 Ultrasound Used for Placement: Yes Central Line Lumen Inserted: triple Post Procedure: sutured in place, good blood return, all ports aspirated, flushed, capped and sterile dressing applied Post Procedure X-Ray: tip of catheter in good position Patient Tolerated Procedure: well Complications: none Course Vital Signs: Vital signs: Vital Signs Temperature 99.5 F 07/05/25 00:00 Pulse Rate 124 H 07/05/25 04:00 Respiratory Rate 34 H 07/05/25 04:00 Blood Pressure 130/84 07/05/25 04:00 Pulse Oximetry 95 07/05/25 04:00 Oxygen Delivery Me thod Nasal Cannula 07/05/25 02:22 Oxygen Flow Rate 4 07/05/25 02:22 MDM - General Adult Medical Decision Making Patient presents in sepsis. White count markedly elevated. Large left shift. Lactic acid elevated as well given fluid bolus central line started despite fluid bolus did not significantly improve blood pressure Levophed initiated. Blood cultures have been started patient started on meropenem and vancomycin. Patient has a cellulitis of the right lower leg Additionally she is in A-fib with RVR she was started on amiodarone bolus and then a drip. Due to her acute kidney injury and is not not an option to add digoxin. Her blood pressure will not tolerate diltiazem at this time. Reviewed with the hospitalist. Medical Records I reviewed the patient's medical records. Lab Data I reviewed the patient's lab results. 07/05/25 01:33 07/05/25 01:33 Radiology Impressions Chest X-Ray 07/04/25 22:25 IMPRESSION: No definite acute infiltrate or effusion. Right neck central line, tip in the cavoatrial junction. Laboratory Results WBC 22.60 10^3/uL (3.29-11.43) H 07/04/25 19:46 RBC 4.43 10^6/uL (3.85-5.65) 07/04/25 19:46 Hgb 11.90 g/dL (11.27-16.99) 07/04/25 19:46 Hct 38.0 % (36-47) 07/04/25 19:46 MCV 85.8 fl (85-98) 07/04/25 19:46 MCH 26.9 pg (27-33) L 07/04/25 19:46 MCHC 31.3 g/dL (30-55) 07/04/25 19:46 RDW 16.4 % (12.1-15.1) H 07/04/25 19:46 Plt Count 202 10^3/cmm (157-399) 07/04/25 19:46 MPV 10.0 fL (7.4-10.4) 07/04/25 19:46 Lymph % (Auto) Not Reportable 07/04/25 19:46 Mayes % (Auto) Not Reportable 07/04/25 19:46 Lymph # (Auto) Not Reportable 07/04/25 19:46 Mayes # (Auto) Not Reportable 07/04/25 19:46 Total Counted 100 (0-100) 07/04/25 19:46 Atypical Lymphs % Not Reportable 07/04/25 19:46 Absolute Neutrophils 19.2 10^3/cmm (1.4-6.5) H 07/04/25 19:46 Segmented Neutrophils 65 % 07/04/25 19:46 Band Neutrophils 20.0 % 07/04/25 19:46 Lymphocytes (Manual) 2 % 07/04/25 19:46 Monocytes (Manual) 2.0 % 07/04/25 19:46 Absolute Monocytes 0.5 10^3/cmm (0.1-0.6) 07/04/25 19:46 Eosinophils (Manual) 0 % 07/04/25 19:46 Absolute Eosinophils 0.0 10^3/cmm (0.0-0.7) 07/04/25 19:46 Basophils (Manual) 0.0 % 07/04/25 19:46 Absolute Basophils 0.0 10^3/cmm (0.0-0.2) 07/04/25 19:46 Metamyelocytes 6.0 % 07/04/25 19:46 Myelocytes 5.0 % 07/04/25 19:46 Platelet Estimate Normal (Normal) 07/04/25 19:46 Sodium 134 mmol/L (136-145) L 07/04/25 19:46 Potassium 5.0 mmol/L (3.5-5.1) 07/04/25 19:46 Chloride 95 mmol/L (98-107) L 07/04/25 19:46 Carbon Dioxide 21 mmol/L (22-29) L 07/04/25 19:46 Anion Gap 23.0 (5-19) H 07/04/25 19:46 BUN 36 mg/dL (6-20) H 07/04/25 19:46 Creatinine 3.2 mg/dL (0.5-0.9) H 07/04/25 19:46 GFR Calculation 15.2 mL/min (90-130) L 07/04/25 19:46 Glucose 119 mg/dL (65-115) H 07/04/25 19:46 Calculated Osmolality 287 mOsm/kg (285-295) 07/04/25 19:46 Lactic Acid 5.9 mmol/L (0.5-2.2) H* 07/04/25 19:46 Calcium 7.9 mg/dL (8.5-10.5) L 07/04/25 19:46 Magnesium 1.4 mg/dL (1.7-2.3) L 07/04/25 19:46 Total Bilirubin 1.4 mg/dL (0.15-1.2) H 07/04/25 19:46 AST 54 U/L (0-32) H 07/04/25 19:46 ALT 39 U/L (0-33) H 07/04/25 19:46 Alkaline Phosphatase 41 U/L (35-105) 07/04/25 19:46 Creatine Kinase 824 U/L (26-192) H* 07/04/25 19:46 Troponin T Baseline 40 ng/L (0-10) H 07/04/25 19:46 NT-Pro-B Natriuret Pep 8500 pg/mL (0-125) H 07/04/25 19:46 Total Protein 6.9 g/dL (6.6-8.7) 07/04/25 19:46 Albumin 3.4 g/dL (3.5-5.2) L 07/04/25 19:46 Globulin 3.5 g/dL (1.3-4.6) 07/04/25 19:46 Lipase 11 U/L (13-60) L 07/04/25 19:46 Procalcitonin > 100.00 ng/mL (0-0.5) H 07/04/25 19:46 TSH 1.44 uIU/mL (0.27-4.20) 07/04/25 19:46 Serum Ketones Negative (Negative) 07/04/25 19:46 All radiology interpretation(s) finalized by discharge EKG Data EKG 1: Interpretation: EKG 07/04/2025 1938 A-fib with rapid ventricular sponsor rate of 180 QTc 433. Compared to EKG 05/14/2024 now in A-fib with RVR no acute ST elevation. Computer generated interpretation: Chest X-Ray 07/04/25 22:25 IMPRESSION: No definite acute infiltrate or effusion. Right neck central line, tip in the cavoatrial junction. Critical Care Time Critical Care Time: Attestation: The high probability of a clinically significant, sudden or life threatening deterioration of the patient's cardiovascular respiratory dermatologic genitourinary system(s) required my full and direct attention, intervention and personal management. The critical care time is as shown. This time is in addition to time spent performing any reported procedures but includes the following: [x] Data and vital sign review and interpretation [x] Patient assessment, examination and intervention [x] Documentation [x] Medication orders and management Discharge Plan Discharge Patient Disposition: Admitted As Inpatient Admit Provider: Samantha Bean Clinical Impression: Acute kidney injury, Atrial fibrillation with rapid ventricular response, Cystitis Sepsis Qualifiers: Sepsis type: sepsis due to unspecified organism Sepsis acute organ dysfunction status: with acute organ dysfunction Severe sepsis acute organ dysfunction type: acute renal failure Acute renal failure type: unspecified Severe sepsis shock status: with septic shock Qualified Code(s): A41.9 - Sepsis, unspecified organism Cellulitis Qualifiers: Site of cellulitis: extremity Site of cellulitis of extremity: lower extremity Laterality: left Qualified Code(s): L03.116 - Cellulitis of left lower limb Rhabdomyolysis Qualifiers: Rhabdomyolysis type: non-traumatic Qualified Code(s): M62.82 - Rhabdomyolysis Condition: Stable Coding Level of Care Code ED Nurse Practitioner for Jojo Marino
--- OUTSIDE RECORDS SUMMARY | 2025-07-04 19:55 | XMS_ITS | Encounter Summary ---
Author Organization [facility] Address [address] [place] [address] Care Team Providers Care Customer Operations Manager Name Role Phone Rikki Benitez DO Primary Care Provider [phone] Encounter Details Date Type Department Care Team (Latest Contact Info) Description 09/16/2016 Ancillary Orders [facility] Cardiology- [place] [address] [place] [address] Glenn Jefferson MD [address] [place] [address] Morbid obesity with BMI of 60.0-69.9, adult ([facility]) (Primary Dx); Preop cardiovascular exam; SOB (shortness of breath) Social History Tobacco Use Types Packs/Day Years Used Date Smoking Tobacco: Every Day Alcohol Use Standard Drinks/Week Comments Not Asked 0 (1 standard drink = 0.6 oz pur e alcohol) Comments Unknown Sex and Gender Information Value Date Recorded Sex Assigned at Not on file Legal Sex Female 3:08 PM CDT Gender Identity Not on file Sexual Orientation Not on file documented as of this encounter Plan of Treatment Not on file documented as of this encounter Visit Diagnoses Diagnosis Morbid obesity with BMI of 60.0-69.9, adult ([facility])- Primary Preop cardiovascular exam Pre-operative cardiovascular examination SOB (shortness of breath) Shortness of breath documented in this encounter Care Teams Customer Operations Manager Relationship Specialty Start Date End Date Rikki Benitez DO [address] [place] [address] PCP - General Specialist 09/02/16 documented as of this encounter
--- OUTSIDE RECORDS SUMMARY | 2025-07-04 19:55 | XMS_ITS | Encounter Summary ---
Author Organization [facility] Address [address] [place] [address] Care Team Providers Care Apartment Leasing Agent Name Role Phone Rikki Benitez DO Primary Care Provider [phone] Encounter Details Date Type Department Care Team (Latest Contact Info) Description 09/16/2016 Ancillary Orders [facility] Cardiology- [place] [address] [place] [address] Glenn Jefferson MD [address] [place] [address] Morbid obesity with BMI of 60.0-69.9, adult ([facility]) (Primary Dx); Preop cardiovascular exam; SOB (shortness [...] Morbid obesity with BMI of 60.0-69.9, adult ([facility])- Primary Preop cardiovascular exam Pre-operative cardiovascular examination SOB (shortness of breath) Shortness of breath documented in this encounter Care Teams Apartment Leasing Agent Relationship Specialty Start Date End Date Rikki Benitez DO [address] [place] [address] PCP - General Specialist 09/02/16 documented as of this encounter
--- OUTSIDE RECORDS SUMMARY | 2025-07-04 19:55 | XMS_ITS | Clinical Summary ---
Author Organization [facility] Address [address] [facility] Attn: [place] [address] Care Team Providers Care Fashion Patternmaker Name Role Phone Rikki Benitez Primary Care Provider [phone] Allergies Active Allergy Reactions Criticality Noted Date Comments Amoxicillin-Pot Clavulanate Hives,Shortn ess of Breath/Wheezing High 09/02/2016 Meperidine Hives,Shortness of Breath/Wheezing High 09/02/2016 Medications Ventolin HFA 90 mcg/actuation inhaler Take 1 Puff by inhalation every 6 hours as needed. 5 Active Breyna 160-4.5 mcg/actuation HFA Aerosol Inhaler Take 2 Puffs by inhalation 2 times daily. 5 Active bumetanide (BUMEX) 2 mg tablet Take 2 mg by mouth daily. Active cholecalciferol 1,250 mcg (50,000 unit) Capsule Take 1 Capsule by mouth every 7 days. 5 Active HYDROcodone-delia taminophen (NORCO) 10-325 mg Tablet Take 1 Tablet by mouth every 4 hours as needed. Active losartan (COZAAR) 100 mg tablet Take 100 mg by mouth daily. 5 Active ondansetron (ZOFRAN) 4 mg Tablet Take 4 mg by mouth every 8 hours as needed. 5 Active pantoprazole (PROTONIX) 40 mg Tablet, Delayed Release (E.C.) Take 1 Tablet by mouth 2 times daily. 5 Active Vitamin Plus Low Iron 27 mg iron- 1 mg Tablet Take 1 Tablet by mouth daily. 5 Active potassium CHLORIDE (K-TAB) 20 mEq Extended Release tablet Take 20 mEq by mouth one time only. 3 Active pregabalin (LYRICA) 50 mg Capsule Take 50 mg by mouth daily at bedtime. Active tiZANidine (ZANAFLEX) 4 mg Tablet Take 4 mg by mouth 3 times daily as needed. for muscle spasms Active traMADol (ULTRAM) 50 mg tablet Take 50 mg by mouth every 8 hours as needed. Active sucralfate (CARAFATE) 1 gram tablet Take 1 Gram by mouth 3 times daily before meals. Active Active Problems Problem Noted Date Diagnosed Date Suboptimal echocardiogram 09/20/2016 Morbid obesity with BMI of 60.0-69.9, adult 08/05 Preop cardiovascular exam 09/02/2016 SOB (shortness of breath) 09/02/2016 Chest pain 09/02/2016 Encounters Date Type Department Care Team Description 06/22/2025 1:20 PM CDT - 06/22/2025 11:59 PM CDT Hospital Encounter [facility] [address] [place] [phone] Hakeem Sapp MD Discharge Disposition: Home or Self Care 06/22/2025 1:19 PM CDT - 06/22/2025 11:59 PM CDT Hospital Encounter [facility] [address] [place] [phone] Hakeem Sapp MD Discharge Disposition: Home or Self Care 06/07/2025 External Device Data STL ABSTRACTION Provider, Abstract 06/06/2025 1:26 PM CDT - 06/06/2025 11:59 PM CDT Hospital Encounter [facility] [address] [place] [phone] Jose L Dillon MD McCarter, Bradley S Discharge Disposition: Home or Self Care 06/01/2025 Orders Only [facility] [address] [place] [phone] Jose L Dillon MD Morbid obesity with BMI of 60.0-69.9, adult (Primary Dx) 05/31/2025 3:00 PM CDT Office Visit [facility] Spine Multidisciplinary Pain [address] [place] [address] Nicky Quick PsyD Psychological factors affecting morbid obesity ([facility]) (Primary Dx); Morbid obesity with BMI of 60.0-69.9, adult ([facility]/HCC) 05/27/2025 Telephone [facility]enter[facility]- [place] [address] [place] [address] Grace Streeter RN [facility] 05/23/2025 1:10 PM CDT Office Visit [facility] Gen Spec Surg [place] [address] [place] [address] Jose L Dillon MD Intestinal malabsorption, unspecified type (Primary Dx); Morbid obesity with BMI of 60.0-69.9, adult ([facility]); History of sleeve gastrectomy; Gastroesophageal reflux disease, unspecified whether esophagitis present; HTN (hypertension), benign; LAURA (obstructive sleep apnea) 05/23/2025 Telephone [facility] [address] [place] [address] Jose L Dillon MD Bariatrics 05/23/2025 Orders Only [facility] [address] [place] [address] Jose L Dillon MD LAURA (obstructive sleep apnea) (Primary Dx); Obesity hypoventilation syndrome ([facility]); Hypertension, unspecified type; Gastroesophageal reflux disease, unspecified whether esophagitis present; Lymphedema; Other chronic pain; Morbid obesity with BMI of 60.0-69.9, adult ([facility]) 05/18/2025 External Device Data STL ABSTRACTION Provider, Abstract 05/18/2025 External Device Data STL ABSTRACTION Provider, Abstract 05/17/2025 External Device Data STL ABSTRACTION Provider, Abstract 04/19/2025 External Device Data STL ABSTRACTION Provider, Abstract from Last 3 Months Social History Tobacco Use Types Packs/Day Years Used Date Smoking Tobacco: Former Cigarettes Q uit: 12/04/2023 Tobacco Cessation:Counseling Given: Not Answered Alcohol Use Standard Drinks/Week Comments Not Currently 0 (1 standard drink = 0.6 oz pur e alcohol) Comments No Sex and Gender Information Value Date Recorded Sex Assigned at Not on file 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 Gender Identity Not on file Sexual Orientation Not on file Last Filed Vital Signs Vital Sign Reading Time Taken Comments Blood Pressure 136/70 05/23/2025 1:03 PM CDT Pulse 90 05/23/2025 1:03 PM CDT Temperature - - Respiratory Rate 20 05/23/2025 1:03 PM CDT Oxygen Saturation 94% 05/23/2025 1:03 PM CDT Inhaled Oxygen Concentration - - Weight 225.9 kg (498 lb) 06/29/2025 8:04 AM CDT Height 182.9 cm (6') 06/29/2025 8:04 AM CDT Body Mass Index 67.54 06/29/2025 8:04 AM CDT Plan of Treatment Upcoming Encounters Date Type Department Care Team (Latest Contact Info) Description 07/07/2025 11:30 AM CDT Appointment [facility] [address] [place] [address] Hakeem Sapp MD [address] [address] Jenaro Alvarez 07/07/2025 12:45 PM CDT Appointment [facility] [address] [place] [address] Hakeem Sapp MD [address] [address] 07/18/2025 9:00 AM CDT Hospital Encounter [facility] [address] [place] [address] Adriana Drummond, DO [address] [facility] [address] [place] [address] 07/18/2025 9:00 AM CDT - 07/18/2025 9:20 AM CDT Surgery [facility] [address] [place] [address] Adriana Drummond, DO [address] [facility] [address] [place] [address] ESOPHAGOGASTRODUODENOSCOPY Scheduled Procedures Name Priority Associated Diagnoses Date/Ti me ESOPHAGOGASTRODUODENOSCOPY Morbid obesity with BMI of 60.0-69.9, adult (CMS/HCC) History of sleeve gastrectomy Heartburn 07/18/2025 9:00 AM CDT PH STUDY 48 HOUR Morbid obesity with BMI of 60.0-69.9, adult ([facility]/HCC) History of sleeve gastrectomy Heartburn 07/18/2025 9:00 AM CDT Health Maintenance Due Date Last Done Comments Pre-Diabetes and Diabetes Screening 1975 HEPATITIS B VACCINES (1 of 3 - 19+ 3-dose series) 01/02 HPV/Cotest (21-29) 1994 CERVICAL CANCER SCREENING 2003 HPV/Cotest (30-65) 2003 PAP SMEAR 2003 DTAP/TDAP/TD VACCINES (1 - Tdap) 08/27/2009 08/26/20 09 BREAST CANCER SCREENING 2013 COLORECTAL SCREENING 2018 Colorectal Cancer Screening 2018 FIT-DNA Q 3 years 2018 FIT/FOBT Q 1 year 2018 Flex Sig/CT Colonography Q 5 years 2018 ZOSTER VACCINE (1 of 2) 2023 INFLUENZA VACCINE (#1) 2025 Goals Goal Patient Goal Type Associated Problems Recent Progress Patient-Stated? Author Autogenerat ed Goal Care Plan Autogenerated Problem No Lora Victor Procedures Procedure Name Priority Date/Time Associated Diagnosis Comments XR UPR GI Routine 06/06/2025 1:54 PM CDT Morbid obesity with BMI of 60.0-69.9, adult (CMS/HCC) History of sleeve gastrectomy Intestinal malabsorption, unspecified type Gastroesophageal reflux disease, unspecified whether esophagitis present from Last 3 Months Results * XR UPR GI (06/06/2025 1:54 PM CDT) Anatomical Region Laterality Modality Abdomen Computed Radiogr aphy 06/06/2025 2:06 PM CDT Impressions 06/06/2025 2:16 PM CDT IMPRESSION: Please see below. Exam: XR UPR GI Date/Time of Exam: 06/06/2025 1:54 PM Reason For Exam: See Diagnosis. Diagnosis: Morbid obesity with BMI of 60.0-69.9, adult (CMS/HCC); Morbid obesity with BMI of 60.0-69.9, adult (CMS/HCC); History of sleeve gastrectomy; Intestinal malabsorption, unspecified type; Gastroesophageal reflux disease, unspecified whether esophagitis present. Preliminary findings dictated by Valentin Corral RPA, RRA. Direct supervision and final interpretation by Dr. Pulido. Wire Loop Machine Operator view of the upper abdomen shows surgical clips over the right upper abdomen. Nondistended gas pattern. Degenerative changes of the spine. Patient was given barium swallow. Esophagus is nondistended without stricture, mass, or ulceration. No hiatal hernia seen. Patient is status post remote sleeve gastrectomy by report. The minimally restrictive stomach shows no stricture or obstruction. No delayed gastric emptying. Duodenal bulb and sweep unremarkable. No gastroesophageal reflux seen during intermittent fluoroscopy. Patient was standing for the entire procedure per patient request. IMPRESSION: 1. Minimally restrictive remote sleeve gastrectomy without apparent complication. 2. No delayed gastric emptying or obvious duodenal abnormality appreciated. Narrative Procedure Note Earl Pulido MD - 06/06/2025 IMPRESSION: Please see below. Exam: XR UPR GI Date/Time of Exam: 06/06/2025 1:54 PM Reason For Exam: See Diagnosis. Diagnosis: Morbid obesity with BMI of 60.0-69.9, adult (CMS/HCC); Morbid obesity with BMI of 60.0-69.9, adult (CMS/HCC); History of sleeve gastrectomy; Intestinal malabsorption, unspecified type; Gastroesophageal reflux disease, unspecified whether esophagitis present. Preliminary findings dictated by XAVI Alvarez RPA. Direct supervision and final interpretation by Dr. Pulido. Wire Loop Machine Operator view of the upper abdomen shows surgical clips over the right upper abdomen. Nondistended gas pattern. Degenerative changes of the spine. Patient was given barium swallow. Esophagus is nondistended without stricture, mass, or ulceration. No hiatal hernia seen. Patient is status post remote sleeve gastrectomy by report. The minimally restrictive stomach shows no stricture or obstruction. No delayed gastric emptying. Duodenal bulb and sweep unremarkable. No gastroesophageal reflux seen during intermittent fluoroscopy. Patient was standing for the entire procedure per patient request. IMPRESSION: 1. Minimally restrictive remote sleeve gastrectomy without apparent complication. 2. No delayed gastric emptying or obvious duodenal abnormality appreciated. Jose L Dillon MD DIAGNOSTIC IMAGING ORDERABLES Fi nal Result from Last 3 Months Additional Health Concerns Active Problems Noted Date Diagnosed Date Autogenerated Problem 05/30/2025 Insurance MEDICARE PART A AND B [place] B Care Teams Fashion Patternmaker Relationship Specialty Start Date End Date Rikki Benitez DO [address] [place] [id number] PCP - General Specialist 09/02/16
--- OUTSIDE RECORDS SUMMARY | 2025-07-04 19:55 | XMS_ITS | Encounter Summary ---
Author Organization [facility] Address [address] [place] [address] Care Team Providers Care Copyright Expert Name Role Phone Rikki Benitez DO Primary Care Provider [phone] Reason for Referral * Outpatient Services (Routine) - Closed Specialty Diagnoses / Procedures Referred By Contac t Referred To Contact Radiology Diagnoses Morbid obesity with BMI of 60.0-69.9, adult (CMS/HCC) Preop cardiovascular exam SOB (shortness of breath) Procedures ECHOCARDIOGRAM W/ CONTRAST AGENT ECHO COMPLETE ECHO STRESS TEST PHARMACO W DOPP AND COLOR FLOW Glenn Jefferson MD Phone: tel: fax: [facility] [place] [address] [place] [address] Phone: tel: fax: Referral ID Status Reason Start Date Expiration Date V isits Requested Visits Authorized [id number] Closed [facility] TO SCHEDULE (SGF) 09/02/2016 10/03/2017 1 1 Encounter Details Date Type Department Care Team (Latest Contact Info) Description 09/16/2016 Ancillary Orders [facility] Cardiology- [place] [address] [place] [address] Glenn Jefferson MD [address] [place] [address] Morbid obesity with BMI of 60.0-69.9, adult (CMS/HCC) (Primary Dx); Preop cardiovascular exam; SOB (shortness [...] on file documented as of this encounter Results * ECHOCARDIOGRAM W/ CONTRAST AGENT (09/16/2016 2:06 PM [employer]) EJECTION FRACTION 54 INTERFACE SYSTEM 09/16/2016 12:3 1 PM [employer] Narrative INTERFACE SYSTEM - 09/16/2016 2:48 PM [employer] [employer] [facility] Echocardiography-[address] [place] [address] Transthoracic Echocardiography Patient: Matteo Study ECHO STRESS Ziyad ID: TEST Gender: F : 1975 Age: 41 Room: Study 09/16/2016 Pt Outpatient Date: Status: Study 12:31 PM [facility] #: [id number] Time: Ordering:Glnen Jefferson MD Interpreting:Charlie Zavala MD Hurl Shaker: Yarelis Franco [facility] Indications and History: Pre-operative Cardiovascular Evaluation. SOB. Summary and Conclusion: - Left ventricle: The cavity size was upper normal to mildly increased. Hypertrophy was noted. Systolic function was at the lower limits of normal. The left ventricular ejection fraction was 54%, by biplane method of disks. The visually estimated ejection fraction was in the range of 50% to 55%. - Left atrium: The atrium was mildly dilated. - Mitral valve: Trivial to mild regurgitation. - Tricuspid valve: Trivial to mild regurgitation. Impressions: Technically difficult study for assessment of wall motion abnormalities despite use of IV contrast Procedure information: No prior study was available for comparison. Study status: Routine. Procedure: Transthoracic echocardiography. Image quality was adequate. Scanning was performed from the parasternal, apical, subcostal, and suprasternal notch acoustic windows. Intravenous contrast (Definity) was administered. Study components: M-mode, 2D, complete spectral Doppler, and color Doppler. Height: Height: 185.4cm. Height: 73in. Weight: Weight: 207.3kg. Weight: 456lb. Body mass index: BMI: 60.3kg/m\S\2. Body surface area: BSA: 3.39m\S\2. Blood pressure: 140/80. Patient status: Outpatient. Study date: Study date: September 16, 2016. Cardiac Anatomy: LEFT VENTRICLE: The cavity size was upper normal to mildly increased. Hypertrophy was noted. Systolic function was at the lower limits of normal. The left ventricular ejection fraction was 54%, by biplane method of disks. The visually estimated ejection fraction was in the range of 50% to 55%. LEFT ATRIUM: The atrium was mildly dilated. AORTIC VALVE: Doppler: There was no stenosis. No significant regurgitation. Peak velocity ratio of LVOT to aortic valve: 0.54. Valve area: 2.03cm\S\2 (Vmax). Indexed valve area: 0.6cm\S\2/m\S\2 (Vmax). Peak gradient: 12mm Hg (S). MITRAL VALVE: Doppler: Trivial to mild regurgitation. TRICUSPID VALVE: Doppler: Trivial to mild regurgitation. PERICARDIUM: There was no pericardial effusion. 2D measurements Adult Normal Range Left ventricle LVID ED, chord, PLAX *55.94 mm 43-52 LVID ES, chord, PLAX *40.53 mm 23-38 FS, chord, PLAX *28 % >29 LVPW, ED 15.74 mm IVS/LVPW ratio, ED 0.97 <1.3 Vol ED, MOD1 203.8 ml Vol ES, MOD1 94.5 ml EF, MOD1 53.63 % Stroke vol, MOD1 109.3 ml Vol index, ED, MOD1 60 ml/m\S\2 Vol index, ES, MOD1 28 ml/m\S\2 Stroke index, MOD1 32.3 ml/m\S\2 Ventricular septum IVS, ED 15.24 mm LVOT Diam, S 21.9 mm AP diam 21.9 mm Area 3.77 cm\S\2 Aorta Root diam, ED 35.46 mm Left atrium AP dim ES, PLAX *38.06 mm 23-38 Right atrium SI dim, ES, A4C 47.96 mm 34-49 Right ventricle RVID ED, PLAX *16.69 mm 19-38 Doppler measurements Adult Normal Range Left ventricle IVRT 100 ms 60-100 LVOT Peak darryn, S 94.29 cm/s Aortic valve Peak darryn, S 174.99 cm/s Peak gradient, S 12 mm Hg Peak darryn ratio, LVOT/AV 0.54 Area, Vmax 2.03 cm\S\2 Area index (Vmax) 0.6 cm\S\2/m\S\2 Tricuspid valve Regurg peak darryn 255.05 cm/s Peak RV-RA gradient, S 26 mm Hg Max regurg darryn 255.05 cm/s Legend: Mean values are shown as u=mean value. Asterisk (*) roberson values outside specified normal range. [facility] are accredited with the [employer]oci[employer] Accreditation Commission - Echocardiography. Prepared and Electronically Authenticated Charlie Zavala MD Confirmed 09/16/2016 14:47 Procedure Note Josesito Zavala MD - 09/16/2016 [facility]chocardi[facility]-[place] [facility] [address] [place] [address] Transthoracic Echocardiography Patient: Matteo Study ECHO STRESS Ziyad ID: TEST Gender: F : 1975 Age: 41 Room: Study 09/16/2016 Pt Outpatient Date: Status: Study 12:31 PM CSN #: [id number] Time: Ordering:Glenn Jefferson MD Interpreting:Charlie Zavala MD Hurl Shaker: Yarelis Franco [facility] Indications and History: Pre-operative Cardiovascular Evaluation. SOB. Summary and Conclusion: - Left ventricle: The cavity size was upper normal to mildly increased. Hypertrophy was noted. Systolic function was at the lower limits of normal. The left ventricular ejection fraction was 54%, by biplane method of disks. The visually estimated ejection fraction was in the range of 50% to 55%. - Left atrium: The atrium was mildly dilated. - Mitral valve: Trivial to mild regurgitation. - Tricuspid valve: Trivial to mild regurgitation. Impressions: Technically difficult study for assessment of wall motion abnormalities despite use of IV contrast Procedure information: No prior study was available for comparison. Study status: Routine. Procedure: Transthoracic echocardiography. Image quality was adequate. Scanning was performed from the parasternal, apical, subcostal, and suprasternal notch acoustic windows. Intravenous contrast (Definity) was administered. Study components: M-mode, 2D, complete spectral Doppler, and color Doppler. Height: Height: 185.4cm. Height: 73in. Weight: Weight: 207.3kg. Weight: 456lb. Body mass index: BMI: 60.3kg/m\S\2. Body surface area: BSA: 3.39m\S\2. Blood pressure: 140/80. Patient status: Outpatient. Study date: Study date: September 16, 2016. Cardiac Anatomy: LEFT VENTRICLE: The cavity size was upper normal to mildly increased. Hypertrophy was noted. Systolic function was at the lower limits of normal. The left ventricular ejection fraction was 54%, by biplane method of disks. The visually estimated ejection fraction was in the range of 50% to 55%. LEFT ATRIUM: The atrium was mildly dilated. AORTIC VALVE: Doppler: There was no stenosis. No significant regurgitation. Peak velocity ratio of LVOT to aortic valve: 0.54. Valve area: 2.03cm\S\2 (Vmax). Indexed valve area: 0.6cm\S\2/m\S\2 (Vmax). Peak gradient: 12mm Hg (S). MITRAL VALVE: Doppler: Trivial to mild regurgitation. TRICUSPID VALVE: Doppler: Trivial to mild regurgitation. PERICARDIUM: There was no pericardial effusion. 2D measurements Adult Normal Range Left ventricle LVID ED, chord, PLAX *55.94 mm 43-52 LVID ES, chord, PLAX *40.53 mm 23-38 FS, chord, PLAX *28 % >29 LVPW, ED 15.74 mm IVS/LVPW ratio, ED 0.97 <1.3 Vol ED, MOD1 203.8 ml Vol ES, MOD1 94.5 ml EF, MOD1 53.63 % Stroke vol, MOD1 109.3 ml Vol index, ED, MOD1 60 ml/m\S\2 Vol index, ES, MOD1 28 ml/m\S\2 Stroke index, MOD1 32.3 ml/m\S\2 Ventricular septum IVS, ED 15.24 mm LVOT Diam, S 21.9 mm AP diam 21.9 mm Area 3.77 cm\S\2 Aorta Root diam, ED 35.46 mm Left atrium AP dim ES, PLAX *38.06 mm 23-38 Right atrium SI dim, ES, A4C 47.96 mm 34-49 Right ventricle RVID ED, PLAX *16.69 mm 19-38 Doppler measurements Adult Normal Range Left ventricle IVRT 100 ms 60-100 LVOT Peak darryn, S 94.29 cm/s Aortic valve Peak darryn, S 174.99 cm/s Peak gradient, S 12 mm Hg Peak darryn ratio, LVOT/AV 0.54 Area, Vmax 2.03 cm\S\2 Area index (Vmax) 0.6 cm\S\2/m\S\2 Tricuspid valve Regurg peak darryn 255.05 cm/s Peak RV-RA gradient, S 26 mm Hg Max regurg darryn 255.05 cm/s Legend: Mean values are shown as u=mean value. Asterisk (*) roberson values outside specified normal range. [facility] are accredited with the [facility] Accreditation Commission - Echocardiography. Prepared and Electronically Authenticated Charlie Zavala MD Confirmed 09/16/2016 14:47 us Glenn Jie Jefferson MD US ORDERABLES Final Result INTERFACE SYSTEM Refer to clinic/hospital department documented in this encounter Visit Diagnoses Diagnosis Morbid obesity with BMI of 60.0-69.9, adult ([facility]) Preop cardiovascular exam Pre-operative cardiovascular examination SOB (shortness of breath) Shortness of breath Morbid obesity with BMI of 60.0-69.9, adult ([facility])- Primary Preop cardiovascular exam Pre-operative cardiovascular examination SOB (shortness of breath) Shortness of breath documented in this encounter Care Teams Copyright Expert Relationship Specialty Start Date End Date Rikki Benitez DO [address] [place] [address] PCP - General Specialist 09/02/16 documented as of this encounter
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
--- OUTSIDE RECORDS SUMMARY | 2025-07-04 19:55 | XMS_ITS | Encounter Summary ---
Author Organization [facility] Address [address] [place] [address] Care Team Providers Care Lithographers Printer Name Role Phone Rikki Benitez DO Primary Care Provider [phone] Reason for Referral * Outpatient Services (Routine) - Closed Specialty Diagnoses / Procedures Referred By Fernando t Referred To Contact Diagnoses Chest pain, unspecified type Preop cardiovascular exam SOB (shortness of breath) Morbid obesity with BMI of 60.0-69.9, adult (CMS/HCC) Suboptimal echocardiogram Procedures ECHO STRESS W CONTRAST PHARMACO ECHO STRESS TEST PHARMACO W DOPP AND COLOR FLOW Glenn Jefferson MD Phone: tel: fax: [facility] Pre-Registration [place] CALL TO MAKE APPOINTMENT ONLY [address] [place] [address] Phone: tel: fax: Referral ID Status Reason Start Date Expiration Date Visits Re quested Visits Authorized [id number] Closed 09/20/2016 10/21/2017 1 1 DULING MANAGER Encounter Details Date Type Department Care Team (Latest Contact Info) Description 10/09/2016 Ancillary Orders [facility] Cardiology- [place] [address] [place] [address] Glenn Jefferson MD [address] [place] [address] Chest pain, unspecified type; Preop cardiovascular exam; SOB (shortness of breath); Morbid obesity with BMI of 60.0-69.9, adult (CMS/HCC); Suboptimal echocardiogram Social History Tobacco Use Types Packs/Day Years [...] documented as of this encounter Results * ECHO STRESS W CONTRAST PHARMACO (10/09/2016 8:53 AM SCHEDULING MANAGER) EJECTION FRACTION INTERFACE SYSTEM 10/09/2016 8:28 AM SCHEDULING MANAGER Narrative INTERFACE SYSTEM - 10/09/2016 2:02 PM SCHEDULING MANAGER [facility] Echocardiography-[address] [place] [id number] Stress Echocardiography Dobutamine Patient: Matteo Study ECHO STRESS Ziyad ID: TEST Gender: F : 1975 Age: 41 Room: Study 10/09/2016 Pt Outpatient Date: Status: Study 08:28 AM [facility] #: [id number] Time: Ordering:Glenn Jefferson MD Interpreting:Glenn Jefferson MD Nurse Case Management: Yarelis Franco [facility] Indications and History: Pre-operative Cardiovascular Evaluation. Risk factors: Family history of coronary artery disease. Current tobacco use. Summary and Conclusion: - Left ventricle: The cavity size was normal. Systolic function was normal. The visually estimated ejection fraction was in the range of 55% to 60%. - Stress: Maximal heart rate during stress was 157bpm (89% of maximal predicted heart rate). The maximal predicted heart rate was 177bpm.The target heart rate was achieved. The rate-pressure product for the peak heart rate and blood pressure was 31632jx Hg/min. The patient experienced no chest pain during stress. - Stress ECG conclusions: There were no stress arrhythmias or conduction abnormalities. Ventricular ectopy noted with stress. The stress ECG was negative for ischemia. - Staged echo: There was no echocardiographic evidence for stress-induced ischemia. Technically difficult, contrast was used. Procedure information: Comparison was made to the study of September 16, 2016. Study status: Routine. Consent: The risks, benefits, and alternatives to the procedure were explained to the patient and consent was obtained. Procedure: Initial setup. A baseline ECG was recorded. Surface ECG leads were monitored. Dobutamine stress test. Stress testing was performed, with dobutamine infusion from 10 to 40 mcg/kg/min by 10 mcg/kg/min increments. Each test stage was approximately 3 min. Transthoracic stress echocardiography. Image quality was adequate. Images were captured at baseline, low dose, mid dose, and peak dose. Intravenous contrast (Definity) was administered. Study completion: The patient tolerated the procedure well. There were no complications. Dobutamine. Study components: 2D. Height: Height: 185.4cm. Height: 73in. Weight: Weight: 207.3kg. Weight: 456lb. Body mass index: BMI: 60.3kg/m\S\2. Body surface area: BSA: 3.39m\S\2. Patient status: Outpatient. Study date: Study date: October 09, 2016. Location: Stress laboratory. Cardiac Anatomy: LEFT VENTRICLE: The cavity size was normal. Systolic function was normal. The visually estimated ejection fraction was in the range of 55% to 60%. Baseline ECG: Normal sinus rhythm. Stress protocol: - Baseline HR: 65bpm BP: 140/77 (98) - Dobutamine 40 ug/kg/min HR: 157bpm BP: 125/33 (64) Stress results: Maximal heart rate during stress was 157bpm (89% of maximal predicted heart rate). The maximal predicted heart rate was 177bpm.The target heart rate was achieved. The rate-pressure product for the peak heart rate and blood pressure was 87090zl Hg/min. The patient experienced no chest pain during stress. Stress ECG: There were no stress arrhythmias or conduction abnormalities. Ventricular ectopy noted with stress. The stress ECG was negative for ischemia. Low dose: LV global systolic function was appropriately augmented from baseline. No evidence for new LV regional wall motion abnormalities. Mid dose: LV global systolic function was appropriately augmented from baseline. No evidence for new LV regional wall motion abnormalities. Peak stress: LV global systolic function was appropriately augmented from baseline. No evidence for new LV regional wall motion abnormalities. Stress echo results: There was no echocardiographic evidence for stress-induced ischemia. Technically difficult, contrast was used. [facility] are accredited with the Intersocietal Accreditation Commission - Echocardiography. Prepared and Electronically Authenticated Glenn Jefferson MD Confirmed 10/09/2016 14:02 Procedure Note Glenn Jefferson MD - 10/09/2016 [facility]ocardi[facility]-[place] [address] [place] [address] Stress Echocardiography Dobutamine Patient: Matteo Study ECHO STRESS Ziyad ID: TEST Gender: F : 1975 Age: 41 Room: Study 10/09/2016 Pt Outpatient Date: Status: Study 08:28 AM CSN #: [id number] Time: Ordering:Glenn Jefferson MD Interpreting:Glenn Jefferson MD Nurse Case Management: Yarelis Franco [facility] Indications and History: Pre-operative Cardiovascular Evaluation. Risk factors: Family history of coronary artery disease. Current tobacco use. Summary and Conclusion: - Left ventricle: The cavity size was normal. Systolic function was normal. The visually estimated ejection fraction was in the range of 55% to 60%. - Stress: Maximal heart rate during stress was 157bpm (89% of maximal predicted heart rate). The maximal predicted heart rate was 177bpm.The target heart rate was achieved. The rate-pressure product for the peak heart rate and blood pressure was 86881nl Hg/min. The patient experienced no chest pain during stress. - Stress ECG conclusions: There were no stress arrhythmias or conduction abnormalities. Ventricular ectopy noted with stress. The stress ECG was negative for ischemia. - Staged echo: There was no echocardiographic evidence for stress-induced ischemia. Technically difficult, contrast was used. Procedure information: Comparison was made to the study of September 16, 2016. Study status: Routine. Consent: The risks, benefits, and alternatives to the procedure were explained to the patient and consent was obtained. Procedure: Initial setup. A baseline ECG was recorded. Surface ECG leads were monitored. Dobutamine stress test. Stress testing was performed, with dobutamine infusion from 10 to 40 mcg/kg/min by 10 mcg/kg/min increments. Each test stage was approximately 3 min. Transthoracic stress echocardiography. Image quality was adequate. Images were captured at baseline, low dose, mid dose, and peak dose. Intravenous contrast (Definity) was administered. Study completion: The patient tolerated the procedure well. There were no complications. Dobutamine. Study components: 2D. Height: Height: 185.4cm. Height: 73in. Weight: Weight: 207.3kg. Weight: 456lb. Body mass index: BMI: 60.3kg/m\S\2. Body surface area: BSA: 3.39m\S\2. Patient status: Outpatient. Study date: Study date: October 09, 2016. Location: Stress laboratory. Cardiac Anatomy: LEFT VENTRICLE: The cavity size was normal. Systolic function was normal. The visually estimated ejection fraction was in the range of 55% to 60%. Baseline ECG: Normal sinus rhythm. Stress protocol: - Baseline HR: 65bpm BP: 140/77 (98) - Dobutamine 40 ug/kg/min HR: 157bpm BP: 125/33 (64) Stress results: Maximal heart rate during stress was 157bpm (89% of maximal predicted heart rate). The maximal predicted heart rate was 177bpm.The target heart rate was achieved. The rate-pressure product for the peak heart rate and blood pressure was 30151aa Hg/min. The patient experienced no chest pain during stress. Stress ECG: There were no stress arrhythmias or conduction abnormalities. Ventricular ectopy noted with stress. The stress ECG was negative for ischemia. Low dose: LV global systolic function was appropriately augmented from baseline. No evidence for new LV regional wall motion abnormalities. Mid dose: LV global systolic function was appropriately augmented from baseline. No evidence for new LV regional wall motion abnormalities. Peak stress: LV global systolic function was appropriately augmented from baseline. No evidence for new LV regional wall motion abnormalities. Stress echo results: There was no echocardiographic evidence for stress-induced ischemia. Technically difficult, contrast was used. [facility] are accredited with the Intersocietal Accreditation Commission - Echocardiography. Prepared and Electronically Authenticated Glenn Jefferson MD Confirmed 10/09/2016 14:02 us Glenn Jefferson MD US ORDERABLES Final Result INTERFACE SYSTEM Refer to clinic/hospital department documented in this encounter Visit Diagnoses Diagnosis Chest pain, unspecified type Preop cardiovascular exam Pre-operative cardiovascular examination SOB (shortness of breath) Shortness of breath Morbid obesity with BMI of 60.0-69.9, adult (CMS/[facility]) Suboptimal echocardiogram Chest pain, unspecified type Preop cardiovascular exam Pre-operative cardiovascular examination SOB (shortness of breath) Shortness of breath Morbid obesity with BMI of 60.0-69.9, adult (CMS/HCC) Suboptimal echocardiogram documented in this encounter Care Teams Lithographers Printer Relationship Specialty Start Date End Date Rikki Benitez DO [address] [place] [address] PCP - General Specialist 09/02/16 documented as of this encounter
--- OUTSIDE RECORDS SUMMARY | 2025-07-04 19:55 | XMS_ITS | Clinical Summary ---
Author Organization [facility] Address [address] [place] [address] Phone Care Team Providers Care Bobbin Disker Name Role Phone Rikki Benitez Primary Care Provider Allergies Active Allergy Reactions Criticality Noted Date Comments Amoxicillin-Pot Clavulanate Hives,Shortn ess of Breath/Wheezing High 09/02/2016 Meperidine Hives,Shortness of Breath/Wheezing High 09/02/2016 Medications bismuth subsalicylate (PEPTO-BISMOL) 262 mg/15 mL suspensionIndicatio ns:Morbid obesity with BMI of 60.0-69.9, adult ([facility]),Preop cardiovascular exam,SOB (shortness of breath) Take 30 mL by mouth every 6 hours as needed for Indigestion . Active HYDROcodone-acetami nophen (NORCO) 7.5-325 mg TabletIndications:M orbid obesity with BMI of 60.0-69.9, adult ([facility]),Preop cardiovascular exam,SOB (shortness of breath) Take 1 Tablet by mouth every 4 hours as needed for Pain, Moderate. Active gabapentin (NEURONTIN) 300 mg capsuleIndications: Morbid obesity with BMI of 60.0-69.9, adult ([facility]),Preop cardiovascular exam,SOB (shortness of breath) Take 300 mg by mouth 3 times daily. Active traZODone (DESYREL) 50 mg tabletIndications:M orbid obesity with BMI of 60.0-69.9, adult ([facility]),Preop cardiovascular exam,SOB (shortness of breath) Take 50 mg by mouth daily at bedtime. Active traMADol (ULTRAM) 50 mg tabletIndications:M orbid obesity with BMI of 60.0-69.9, adult ([facility]),Preop cardiovascular exam,SOB (shortness of breath) Take 100 mg by mouth every 4 hours as needed for Pain. Active tiZANidine (ZANAFLEX) 4 mg TabletIndications:M orbid obesity with BMI of 60.0-69.9, adult ([facility]),Preop cardiovascular exam,SOB (shortness of breath) Take 4 mg by mouth daily at bedtime. Active Active Problems Problem Noted Date Diagnosed Date Suboptimal echocardiogram 09/20/2016 Morbid obesity with BMI of 60.0-69.9, adult 08/05 Preop cardiovascular exam 09/02/2016 SOB (shortness of breath) 09/02/2016 Chest pain 09/02/2016 Social History Tobacco Use Types Packs/Day Years [...] Sign Reading Time Taken Comments Blood Pressure 144/79 10/09/2016 8:57 AM EDUCATIONAL ADVISER Pulse 108 10/09/2016 8:57 AM EDUCATIONAL ADVISER Temperature - - Respiratory Rate - - Oxygen Saturation - - Inhaled Oxygen Concentration - - Weight 207.3 kg (457 lb) 09/02/2016 2:28 PM CDT Height 185.4 cm (6' 1 ) 09/02/2016 2:28 PM CDT Body Mass Index 60.29 09/02/2016 2:28 PM CDT Plan of Treatment Health Maintenance Due Date Last Done Comments Pre-Diabetes and Diabetes Screening 1975 DTAP/TDAP/TD VACCINES (1 - Tdap) 01/27/1992 HEPATITIS B VACCINES (1 of 3 - 19+ 3-dose series) 01/02 HPV/Cotest (21-29) 1994 CERVICAL CANCER SCREENING 2003 HPV/Cotest (30-65) 2003 PAP SMEAR 2003 BREAST CANCER SCREENING 2013 COLORECTAL SCREENING 2018 Colorectal Cancer Screening 2018 FIT-DNA Q 3 years 2018 FIT/FOBT Q 1 year 2018 Flex Sig/CT Colonography Q 5 years 2018 ZOSTER VACCINE (1 of 2) 2023 INFLUENZA VACCINE (#1) 2025 Insurance * Guarantor: Ziyad Felipe Account Type Relation to Patient Date of Phone Billing Address Personal/Family Self 1975 [address] [place] [address] MEDICAID [place] Care Teams Bobbin Disker Relationship Specialty Start Date End Date Rikki Benitez DO [address] [place] [address] PCP - General Specialist 09/02/16
--- OUTSIDE RECORDS SUMMARY | 2025-07-04 19:55 | XMS_ITS | Patient Health Record ---
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 Name Role Phone Susannah Cruz MD Primary Care Provider Unavail able Fiona JAIMES, Rylan Unavailable [phone] Zhane Cortes Unavailable [phone] Allergies Allergen (clinical drug ingredient) Drug/Non Drug Allergy documented on EMR Reaction Allergy Type Onset Date Status Clavulanic acid clavulanic acid (uncoded) hives, itch Allergy Active red dye (uncoded) Unknown Allergy Ac tive amoxicillin / clavulanate Augmentin Unknown Drug Allergy Active meperidine meperidine hives, itch and shortness of breath Drug Allergy Active amoxicillin-clavul anate hives, itch Drug Allergy Active Reason For Referral No Information Medications Medication SIG (Take, Route, Frequency, Duration) Notes Start Date End Date Status acetaminophen-hydrocod one 325 mg-10 mg 1 tab orally Q4H prn severe pain (max 4/day; hold within 4H of planned sleep); Duration: 28 days Do not fill prior to 04/01/25. ICD-10: G89.29 03/01/2025 Active tiZANidine 4 mg 1 tab orally 3 times a day, as needed for muscle spasticity Active bumetanide 2 mg 1 tab(s) orally once a day; Duration: 30 day(s) 01/08/2023 Active pregabalin 50 mg 1 cap orally 3 times a day Active potassium chloride 20 mEq 1 tab(s) orally 2 times a day; Duration: 30 day(s) 01/08/2023 Active acetaminophen-hydrocod one 325 mg-10 mg 1 tab orally Q4H prn severe pain (max 4/day; hold within 4H of planned sleep); Duration: 28 days Do not fill prior to 03/04/25. ICD-10: G89.29 03/01/2025 Active Severe Cold Maximum Strength 325 mg-10 mg-200 mg-5 mg 2 tab(s) orally every 4 hours Active traMADol 50 mg 1 tab orally Q4-6H p rn pain (max 3/day; hold within 4H of planned sleep); Duration: 28 days ICD-10: G89.29 03/01/2025 Active Plus Multivitamins with Folic Acid 1 mg 1 tab orally once a day Active losartan 50 mg 1 tab(s) orally once a day Active loratadine 10 mg 1 tab orally once a day Active Nicoderm C-Q 7 mg/24 hr 1 PATCH transdermally once a day Active mupirocin topical 2% 1 sussy applied topically 3 times a day; Duration: 5 day(s) Active traZODone 50 mg 1 tab orally once a day Active acetaminophen-hydrocod one 325 mg-10 mg 1 tab orally Q4H prn severe pain (max 4/day; hold within 4H of planned sleep); Duration: 28 days Do not fill prior to 04/29/25. ICD-10: G89.29 03/01/2025 Active Social History Tobacco Use: Social History Observation Description Date Details (start date - stop date) Former Smoker NA - NA Tobacco use: Question Answer Notes : former smoker When did you stop smoking? 01/12 AUDIT-C (Standard) Question Answer Notes Did you have a drink containing alcohol in the p ast year? 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) Active confirmed Problem Obstructive sleep apnea syndrome (88410094) Obstructive sleep apnea (adult) (pediatric) (G47.33) Active confirmed Problem Chronic pain (29257244) Other chronic pain (G89.29) Active confirmed Problem Essential hypertension (62405943) Essential (primary) hypertension (I10) Active confirmed Problem Degeneration of cervical intervertebral disc (84384604) Other cervical disc degeneration, unspecified cervical region (M50.30) Active confirmed Problem Radiculopathy due to lumbar intervertebral disc disorder (109701771947029) Intervertebral disc disorders with radiculopathy, lumbar region (M51.16) Active confirmed Problem Cervicalgia (45522777) Cervicalgia (M54.2) Active confirmed Problem Sciatica (18012874) Lumbago with sciatica, left side (M54.42) Active confirmed Problem Pain in lumbar spine (995792531) Vertebrogenic low back pain (M54.51) Active confirmed Vital Signs Temperature 97.1 degrees Fahrenheit 03/01/2025 Cristy ent reported weight Blood pressure diastolic 97 mm Hg 03/01/2025 Pat ient reported weight Oximetry 89 % 03/01/2025 Patient reporte d weight Height 71 in 03/01/2025 Patient reporte d weight Blood pressure systolic 166 mm Hg 03/01/2025 Cristy ent reported weight Weight 514 lbs 03/01/2025 Patient reporte d weight BMI 71.68 kg/m2 03/01/2025 Patient reporte d weight Encounters Encounter Location Date Provider Diagnosis [facility] [address] [place], [place] [id number] 07/15/2024 Zhane Moreno Vertebrogenic low ba ck pain M54.51 ; Other chronic pain G89.29 ; Obstructive sleep apnea (adult) (pediatric) G47.33 and [facility] (current) use of opiate analgesic Z79.891 [facility] [address] [place], [place] [id number] 09/08/2024 Rylan Jaimes Vertebrogenic low ba ck pain M54.51 ; Other chronic pain G89.29 and Obstructive sleep apnea (adult) (pediatric) G47.33 [facility] [address] [place], [place] [id number] 11/09/2024 Rylan Jaimes Vertebrogenic low ba ck pain M54.51 ; Other chronic pain G89.29 and Obstructive sleep apnea (adult) (pediatric) G47.33 [facility] [address] [place], [place] [id number] 01/04/2025 Rylan Jaimes Vertebrogenic low ba ck pain M54.51 ; Other chronic pain G89.29 ; Essential (primary) hypertension I10 and Obstructive sleep apnea (adult) (pediatric) G47.33 [facility] [address] [place], [place] [id number] 03/01/2025 Rylan Jaimes Vertebrogenic low ba ck pain M54.51 ; Other chronic pain G89.29 ; Essential (primary) hypertension I10 and Obstructive sleep apnea (adult) (pediatric) G47.33 Assessments Encounter Date Diagnosis (ICD Code) Assessment Notes Treatment Notes Treatment Clinical Notes Section Notes 01/04/2025 Other chronic pain (ICD-10 - G89.29) Patient reports that taking her pain medication allows her to help clean her home. Plan to continue oral opioid medication management. 01/04/2025 Vertebrogenic low back pain (ICD-10 - M54.51) Chronic axial lumbosacral spine pain. 03/01/2025 Vertebrogenic low back pain (ICD-10 - M54.51) Chronic axial lumbosacral spine pain. 11/09/2024 Vertebrogenic low back pain (ICD-10 - M54.51) Chronic axial lumbosacral spine pain. 09/08/2024 Other chronic pain (ICD-10 - G89.29) Patient reports that taking her pain medication allows her to be more mobile. Plan to continue oral opioid medication management. 09/08/2024 Vertebrogenic low back pain (ICD-10 - M54.51) Chronic axial lumbosacral spine pain. 07/15/2024 Vertebrogenic low back pain (ICD-10 - M54.51) Chronic axial lumbosacral spine pain. 11/09/2024 Other chronic pain (ICD-10 - G89.29) Patient reports that taking her pain medication allows her to grocery shop and clean her home. Plan to continue oral opioid medication management. 07/15/2024 Obstructive sleep apnea (adult) (pediatric) (ICD-10 - G47.33) Patient reports nightly use of her BiPAP device; she reports sleeping in a recliner. Plan to continue to restrict opioid use in relation to sleep for safety concerns. 07/15/2024 Other chronic pain (ICD-10 - G89.29) Patient reports that taking her pain medication allows her to be more mobile. Plan to continue oral opioid medication management. 09/08/2024 Obstructive sleep apnea (adult) (pediatric) (ICD-10 - G47.33) Patient reports nightly use of her BiPAP device; she reports sleeping in a recliner. Plan to continue to restrict opioid use in relation to sleep for safety concerns. 03/01/2025 Other chronic pain (ICD-10 - G89.29) Patient reports that taking her pain medication allows her to help clean her home. Plan to continue oral opioid medication at today's visit. 01/04/2025 Essential (primary) hypertension (ICD-10 - I10) Education sheet given at today's visit; patient to address with PCP. 01/04/2025 Obstructive sleep apnea (adult) (pediatric) (ICD-10 - G47.33) Patient reports partial compliance regarding nightly use of her BiPAP device; she reports currently sleeping in a recliner. Plan to continue to restrict opioid use in relation to sleep for safety concerns. 03/01/2025 Essential (primary) hypertension (ICD-10 - I10) Education sheet given at today's visit; patient to address with PCP. 11/09/2024 Obstructive sleep apnea (adult) (pediatric) (ICD-10 - G47.33) Patient reports nightly use of her BiPAP device; she reports sleeping in a recliner. Plan to continue to restrict opioid use in relation to sleep for safety concerns. 07/15/2024 [facility] (current) use of opiate analgesic (ICD-10 - Z79.891) 03/01/2025 Obstructive sleep apnea (adult) (pediatric) (ICD-10 - G47.33) Patient reports partial compliance regarding nightly use of her BiPAP device; she reports currently sleeping in a recliner. Plan to continue to restrict opioid use in relation to sleep for safety concerns. 03/01/2025 Other The service was provided by ANDRES Hannah, as part of the ongoing care plan established by Rylan Jaimes MD, who was present in the office for direct supervision during the encounter. Patient was provided with a letter at today's visit informing patient that this clinic is closing due to Dr. Jaimes's long-term; see scanned document. Terminal prescriptions were given to the patient along with tapering instructions. 11/09/2024 Other The service was provided by ANDRES Hannah, as part of the ongoing care plan established by Rylan Jaimes MD, who was present in the office for direct supervision during the encounter. 01/04/2025 Other The service was provided by ANDRES Hannah, as part of the ongoing care plan established by Rylan Jaimes MD, who was present in the office for direct supervision during the encounter. 09/08/2024 Other 07/15/2024 Other Plan Of Treatment No Information Insurance Providers Payer Name Payer Address Payer Phone Subscriber Number Group Number Insured Name Patient Relationship to Insured Coverage Start Date Coverage End Date [employer] Medicare Part B Claims Department [address] [address] [place] [address] [id number] Ziyad Felipe Self - patient is the insured [place] [address] [place] [id number] iZyad Felipe Self - patient is the insured Medical (General) History Medical History History ICD Code Chronic pain Low back pain Lumbar spondylosis and disc disease Sacroiliitis Scoliosis, mild, as per prior plain film s report Neck pain Degeneration of intervertebr al disc of cervical spine without disc herniation Arthralgia of cervical spine Left shoulder pain Right hip pain Knee pain, history of injection therapy by Dr. Deng Osteoarthritis of knees, bilateral Hypertension Polycystic ovarian syndrome Lymphedema History of tobacco use, poss ible COPD, possible restrictive lung disease due to obesity Supplemental oxygen use for lung disease Sleep apnea Obesity, morbid Surgical History Surgery Date(Month/Year) Cesaran section, performed in spring, 1993, 1994 Cholecystectomy, performed in [facility] , 1993 Dilation and curettage, 09/2003 Laparotomy, salpingo-oophore ctomy, left, performed at [facility] by Dr. Lovelace, 01/15/06 Laparoscopic bariatric band, performed i [place], [place], 09/14/12 Laparoscopic gastric sleeve, performed [place], [place], 2017 Laparoscopic, small bowel ob struction with lysis of adhesions, treated at [facility] by Dr. Yee, 09/21/18 Hysteroscopy with dilation a nd curettage, performed at [facility] by Dr. Deshpande, 05/09/20 Hysterectomy with salpingo-o ophorectomy, right, performed at [facility] by Dr. Deshpande, 08/01/20 Hospitalization History Reason Date(Month/Year) Fluid build up, treated at [facility], 12/29/22 -01/01/23 Sepsis Polycystic ovarian disease, blood loss, 2017 C-diff MRSA
[2025-07-04 19:56] LABS: Hematocrit 38.0 % (36-47); Hemoglobin 11.90 g/dL (11.27-16.99); Mean Corpuscular HGB Conc 31.3 g/dL (30-55); Mean Corpuscular Hemoglobin 26.9 pg (27-33); Mean Corpuscular Volume 85.8 fl (85-98); Platelet Count 202 10^3/cmm (157-399); Red Blood Count 4.43 10^6/uL (3.85-5.65); White Blood Count 22.60 10^3/uL (3.29-11.43)
[2025-07-04] MEDS: amiodarone 150 MG/100 ML PREMIX 400 MG IV (19:58)
[2025-07-04 20:11] LABS: Ketone (Acetest) Serum Negative (Negative)
[2025-07-04 20:12] LABS: Troponin(5th) Baseline 40 ng/L (0-10)
[2025-07-04 20:19] LABS: Lactic Sepsis W/Reflex 5.9 mmol/L (0.5-2.2)
[2025-07-04 20:22] LABS: NT Pro B Type Natriuretic Pept 8500 pg/mL (0-125); Thyroid Stimulating Hormone 1.44 uIU/mL (0.27-4.20)
[2025-07-04 20:33] LABS: Alanine Aminotransferase 39 U/L (0-33); Albumin Level 3.4 g/dL (3.5-5.2); Alkaline Phosphatase 41 U/L (35-105); Anion Gap 23.0 (5-19); Aspartate Amino Transferase 54 U/L (0-32); Blood Urea Nitrogen 36 mg/dL (6-20); Calcium 7.9 mg/dL (8.5-10.5); Carbon Dioxide 21 mmol/L (22-29); Chloride 95 mmol/L (98-107); Creatinine Clr Calc Pharmacy 43.1254; Globulin 3.5 g/dL (1.3-4.6); Glucose 119 mg/dL (65-115); Lipase 11 U/L (13-60); Magnesium 1.4 mg/dL (1.7-2.3); Osmolality Calculated 287 mOsm/kg (285-295); Potassium 5.0 mmol/L (3.5-5.1); Sodium 134 mmol/L (136-145); Total Protein 6.9 g/dL (6.6-8.7)
[2025-07-04] MEDS: SODIUM CHLORIDE 0.9% 2124 ML IV (20:51)
[2025-07-04] MEDS: MEROPENEM 2,000 MG in sodium chloride 0.9% (plus) 50 ML 100 MG IV (20:52)
[2025-07-04 20:53] LABS: Absolute Segmented Neutrophil 14.7 10/cmm (1.6-7.1); Band Neutrophils Absolute 4.5 10^3/cmm (0.0-1.2); Slide Review Slide Review Perform; Total Cells Counted 100 (0-100)
[2025-07-04 21:03] LABS: Procalcitonin > 100.00 ng/mL (0-0.5)
[2025-07-04 21:18] LABS: ABG PCO2 39.1 mmHg (35-45); ABG PH Result 7.35 (7.35-7.45); Alveolar-Arterial Oxygen Gradi 24.0 mmHg (5-10); Arterial Blood Gas Hematocrit 37.0 % (37-47); Blood Gas Allen Test Pos; Blood Gas LPM 6.0 %; Blood Gas Operator Identificat gerca; Blood Gas Sample Site Radial, right; Blood Gas Sample Type Arterial; Carboxyhemoglobin 1.5 %THgb (0.4-20.1); Glucose Level-ABG 127.0 mg/dL (70-115); HCO3 ABG 21.8 mmol/L (22-26); Ionized Calcium Level - ABG 1.1 mmol/L (1.1-1.4); Methemoglobin 0.6 % (0.4-1.5); Oxygen Saturation ABG 96.5; PO2 ABG 80.4 mmHg (80.0-100.0); PO2 FiO2 Ratio Arterial Blood 182; Potassium Level - ABG 4.5 mmol/L (3.5-5.0); Sodium Level - ABG 134.0 mmol/L (131-143)
[2025-07-04 21:37] LABS: Reflex Lactate Order REFLEX LACTIC ORDERD
--- NOTE | 2025-07-04 21:39 | ECG_ITS ---
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 Measurements Intervals [place] Rate: 155 P: 0 OR: 0 QRS: 55 QRSD: 84 T: 49 QT: 273 QTc: 438 Interpretive Statements ATRIAL FIBRILLATION WITH RAPID VENTRICULAR RESPONSE CRITICAL TEST RESULT Compared to ECG 07/04/2025 19:38:52 T-wave abnormality no longer present Electronically Signed On 07-05-2025 21:42:07 CDT by Karime Clay M.D. [id number]
[2025-07-04 21:46] LABS: Glucose Urine UA Negative (Normal); Nitrate Urine Positive (Negative); Specific Gravity, Urine 1.026 (1.005-1.030)
[2025-07-04 21:49] LABS: Add Urine Microscopic? YES
[2025-07-04 22:05] LABS: UA Slide Review UA Slide Review Perf
--- NOTE | 2025-07-04 22:25 | XRR_ITS ---
PROCEDURE INFORMATION: Exam: XR Chest Exam date and time: 07/04/2025 10:24 PM Age: 50 years old Clinical indication: Other vascular access device placement or adjustment; Central line, non-tunnelled; Check S/P central line placement TECHNIQUE: Imaging protocol: Radiologic exam of the chest. Views: 1 view. COMPARISON: CR (CHEST, ) 07/04/2025 7:59 PM FINDINGS: Tubes, catheters and devices: Right neck central line. Tip in the cavoatrial junction. Lungs: Unremarkable. No consolidation. Pleural spaces: Unremarkable. No pleural effusion. No pneumothorax. Heart/Mediastinum: Unremarkable. No cardiomegaly. Bones/joints: [id number] degenerative changes of thoracic spine. Mild degenerative change of the AC joints. XR/XR chest 1V portable [id number] IMPRESSION: No definite acute infiltrate or effusion. Right neck central line, tip in the cavoatrial junction.
[2025-07-04] MEDS: norepinephrine 4 MG/250 ML BAG 30 MG IV (22:34)
[2025-07-04 22:59] LABS: Troponin 5 2HR 34.89 ng/L (0-10); Troponin 5 2HR Delta -5.11 ABS# (0-10)
[2025-07-04 23:00] LABS: Lactic Acid level (Lactate) 3.9 mmol/L (0.5-2.2)
[2025-07-05] VITALS (97 sets, daily range): BP systolic 77–142; BP diastolic 51–95; PULSE 93–146; RESP 17–42; TEMP 37.5–38.6; O2SAT 84–100
--- NOTE | 2025-07-05 01:01 | PC.NURSE ---
Addendum entered by Sangeetha Navarro RN 07/05/25 01:08: witnessed patient stating she did not have any money or valuables in her possession at time of admission Original Note: Patient arrived to ICU 7 at 2335. Patient alert and oriented. Patients top cut off with her permission. Transfered to ICU bed, which would not accommodate patients weight. Patient then moved to bariatric bed. Orders placed for respiratory to eval and treat as none were in the system and patient maxed out at 6L NC. Provider notified. Patient stated in front of this nurse and Sangeetha Navarro RN that she did not have any money or valuables in her purse besides her cell phone.
--- NOTE | 2025-07-05 01:32 | ECG_ITS ---
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 Measurements Intervals [place] Rate: 125 P: 0 [place]: 0 QRS: 13 QRSD: 90 T: -2 QT: 303 QTc: 438 Interpretive Statements ATRIAL FIBRILLATION WITH RAPID VENTRICULAR RESPONSE ABNORMAL RHYTHM ECG Compared to ECG 07/04/2025 21:39:13 No significant changes Electronically Signed On 07-05-2025 21:54:39 CDT by Karime Clay M.D. [id number]
[2025-07-05 01:53] LABS: Hematocrit 34.6 % (36-47); Hemoglobin 11.00 g/dL (11.27-16.99); Mean Corpuscular HGB Conc 31.8 g/dL (30-55); Mean Corpuscular Hemoglobin 26.8 pg (27-33); Mean Corpuscular Volume 84.2 fl (85-98); Nucleated Red Blood Cells % 0 %; Platelet Count 179 10^3/cmm (157-399); Red Blood Count 4.11 10^6/uL (3.85-5.65); White Blood Count 21.95 10^3/uL (3.29-11.43)
--- NOTE | 2025-07-05 01:53 | PM.HP ---
Providers/Chief Complaint Admitting Physician: Samantha Bean MD--- I have seen and evaluated patient before midnight Primary Care Provider: ANDRES Hernandez Chief Complaint: low bp History of Present Illness Ziyad Felipe is a 50 year old female who is morbidly obese with bilateral elephantiasis of the lower extremity wheelchair-bound but lives at home by herself. She has no assistance for her activities of daily living. This sister comes by and check on her but this was not enough. Patient had gotten sick over the past 3 days but had not admitted to the hospital till today she was not doing well at all she was very cold and could not figure out why and when she checked her oxygen saturation at home it was in the 70s for that reason she went ahead and called the ambulance to take her to the emergency room for evaluation. Patient had gotten here to the emergency room. EMS at patient's home noted systolic blood pressure was in the 60s patient digits we are cyanotic patient has extensive left lower extremity cellulitis from the foot up to the thigh region. And she has visuals on the skin showing multiple possible micro organism entrance into the system. Patient had received a total of 4 L of IV fluid with pressor on board. Chest x-ray area clean patient had leukocytosis of 21,000. Patient is in acute renal failure with a creatinine of 3.1 lactic elevated. Patient was pancultured from blood and urine and was given vancomycin loading for pharmacy to dose and also was started on meropenem. It took a while to get the blood pressure stabilized blood pressure we will plan down to even a systolic of 50s with a MAP of 22 finally patient was able to respond to care. I then moved patient to ICU after much time in the emergency room and care. Review of Systems Narrative: System review upon 10 organ review were significant for integumentary with cyanosis fissures on the lower extremity legs on the skin elephantiasis. Most importantly patient is in septic shock. Medications/Allergies Home Medications ?Medication ?Instructions ?Recorded ?Confirmed ?Last Taken ?Type tramadol 50 mg tablet 50 mg PO TID PRN Pain 12/30/22 06/08/25 03/11/25 History bumetanide 2 mg tablet 2 mg PO DAILY #120 tabs 05/17/24 06/08/25 07/12/24 Rx hydrocodone 10 mg-acetaminophen 1 tab PO QID PRN pain 06/28/24 06/08/25 03/10/25 History 325 mg tablet naloxone 4 mg/actuation nasal spray 4 mg intranasal Q2M PRN Opioid 06/28/24 06/08/25 Unknown History Overdose pregabalin 50 mg capsule 50 mg PO BID #60 caps 12/09/24 06/08/25 Unknown Rx cholecalciferol (vitamin D3) 1,250 50,000 unit PO .once weekly #12 02/23/25 06/08/25 Unknown Rx mcg (50,000 unit) capsule caps cefadroxil 500 mg capsule 1,000 mg (2 x 500 mg) PO Q12H PRN 03/16/25 06/08/25 Unknown Rx cellulitis 7 days #28 caps albuterol sulfate 90 mcg/actuation See Rx Instructions .Route 03/17/25 06/08/25 Unknown Rx aerosol inhaler (Ventolin HFA) .COMPLEX #18 grams ammonium lactate 12 % topical cream 1 applic topical DAILY #280 grams 03/17/25 06/08/25 Unknown Rx urea 40 % topical cream 1 applic topical BID skin 03/17/25 06/08/25 Unknown Rx irritation #28 grams ondansetron HCl 4 mg tablet See Rx Instructions .Route 06/24/25 Unknown Rx .COMPLEX #30 tabs pantoprazole 40 mg tablet,delayed See Rx Instructions .Route 06/24/25 Unknown Rx release .COMPLEX #180 tabs solifenacin 10 mg tablet See Rx Instructions .Route 06/24/25 Unknown Rx .COMPLEX #90 tabs tizanidine 4 mg tablet See Rx Instructions .Route 06/24/25 Unknown Rx .COMPLEX #90 tabs trazodone 100 mg tablet See Rx Instructions .Route 06/24/25 Unknown Rx .COMPLEX #90 tabs budesonide-formoterol HFA 160 See Rx Instructions .Route 06/29/25 Unknown Rx mcg-4.5 mcg/actuation aerosol .COMPLEX #10.2 grams inhaler (Breyna) losartan 100 mg tablet See Rx Instructions .Route 06/29/25 Unknown Rx .COMPLEX #90 tabs Allergies Allergy/AdvReac Type Severity Reaction Status Date / Time red dye Allergy Intermediate rash Verified 06/08/25 09:49 amoxicillin (From Augmentin) Allergy HIVES AND Verified 06/08/25 09:49 ITCHING clavulanic acid (From Allergy HIVES AND Verified 06/08/25 09:49 Augmentin) ITCHING meperidine (From Demerol) Allergy HIVES, Verified 06/08/25 09:49 ITCHING AND SHORTNESS OF BREATH PFSH Acute PFSH: Medical History Lymphedema Hypertension Morbid obesity Colon polyps Morbid obesity Venous stasis dermatitis Anasarca Cellulitis of left lower leg Acute diastolic heart failure Cellulitis Bilateral lower leg cellulitis Obesity hypoventilation syndrome Accelerated hypertension Smokes cigarettes Lower limb ulcer, ankle Lymphedema associated with obesity Polycystic ovarian syndrome Longstanding diagnosis, dating back to 2003. Has been on and off treatment for many years. LAURA (obstructive sleep apnea) Osteoarthritis of knees, bilateral Chronic low back pain with left-sided sciatica > 50% of 45 min visit counseling patient regarding weight. Encounter for long-term opiate analgesic use Current every day smoker Degeneration of intervertebral disc of cervical spine without disc herniation Arthralgia of cervical spine Surgical History S/P total abdominal hysterectomy (08/01/20) With RSO. Performed by Dr. Deshpande at [facility] in [place], [place]. Path showed polyp with complex hyperplasia with atypia Status post hysteroscopy (~05/09/20) Hysteroscopy with dilation and curettage with Dr. Paul Deshpande at [facility] History of laparoscopic cholecystectomy (~1993) History of D&C (~09/2003) History of laparoscopy (09/21/18) Dx: Small bowel obstruction. Lysis of adhesions. Performed by Dr. Yee at [facility]. History of left salpingo-oophorectomy (01/15/06) Laparotomy. Performed by Dr. Lovelace at [facility]. 10 cm left adnexal cystic mass. History of bariatric surgery (~2016) Laparoscopic gastric sleeve. H/O bariatric surgery (09/14/12) Laparoscopic band. H/O section 12/21/1991, 12/14/1993, 04/17/1995. Family History Father Diabetes Hypertension Social History Smoking and tobacco/nicotine status: former use of tobacco/nicotine (quit 15 months ago) Alcohol intake: never Substance/Drug Use: never Vitals/I&O/Wt Last Vital Signs Temp 99.5 F 07/05/25 00:00 Pulse 146 H 07/05/25 01:00 Resp 36 H 07/05/25 01:00 BP 98/65 07/05/25 01:00 Pulse Ox 95 07/05/25 01:00 O2 Del Method Nasal Cannula 07/05/25 00:00 O2 Flow Rate 6 07/05/25 00:00 07/04/25 07/04/25 07/05/25 14:59 22:59 06:59 Intake Total 111.25 / 111.25 4450.25 / 4561.50 Balance 111.25 / 111.25 4450.25 / 4561.50 Weight last 48 hrs Weight 235.6 kg Weight 225.889 kg Weight 225.889 kg Physical Exam Narrative: The patient looks toxic very ill-appearing pale and cyanotic in the facial area shoulder and down to the fingers. Cool to touch. And this was at the beginning after over 3 to 4 hours of care in the emergency room at the bedside patient then now maintaining good blood pressure with pressor on board and some IV fluid was transferred to ICU for further care and monitoring. HEENT normocephalic/atraumatic neck neck is supple cardiovascular heart rate is regular lungs are pretty much clear abdomen soft but obese abdomen remarkable for Brumfield draining to gravity tea burrell-colored urine. Extremities significant for elephantiasis and that left lower extremities much with cellulitis neurology he has no focality but alertness is very diminished Urinary Catheter Management: Brumfield: Cath Placed During This Visit: yes Urinary Catheter Date of Insertion: 07/04/25 Urinary Catheter Time of Insertion: 21:30 Data 07/05/25 01:33 07/05/25 01:33 Micro: Microbiology 07/04/25 19:46 Blood Culture - Preliminary Blood SPECIMEN COLLECTED A&P Assessment and plan 1. Sepsis: 2. Cellulitis: 3. Cystitis: 4. Rhabdomyolysis: 5. Atrial fibrillation with rapid ventricular response: 6. Acute kidney injury: 7. Lymphedema: 8. Open wound of left lower extremity with complication: 9. Hypertension: 10. Anxiety and depression: 11. Morbid obesity: Plan: #1 Sepsis with septic shock - Admit to ICU for critical care delivery - Patient received a total of 4 L of IV fluid while the open and then pressor was initiated to further optimize the blood pressure. - Panculture from blood and urine - Initiated antibiotics with vancomycin and meropenem #2 Left lower extremity severe cellulitis - Continue antibiotics with vancomycin and Merrem follow through and optimize accordingly - IV fluid has been de-escalated to a maintenance fluid of 100 mL/h - Patient is still on Levophed pressor to continue to optimize blood pressure #3 Rhabdomyolysis - Addressed with IV hydration Continue to monitor #4 Acute renal failure - Had improved dramatically from a creatinine of 3.6 now down to a creatinine of 2.1. - Eventually this will come back down to normal at patient's baseline - Keep medication renal friendly #5 GI and DVT prophylaxis in place PDMP PDMP Reviewed: Last Reviewed 07/05/25 06:01 by Samantha Bean MD Attestations Medical Necessity Statement*: Patient with multiple acute medical issues requiring attention. Patient found to be in septic shock requiring over 3 L of IV normal saline along with pressor to keep the blood pressure up. Patient MAP was down to 22 with systolic blood pressure in the 60s. Patient deserves to midnight stay at least and at this time has been placed in ICU for critical care delivery Coding Level of Care Code 53033 Diagnoses Sepsis A41.9 Cellulitis L03.90 Cystitis N30.90 Rhabdomyolysis M62.82 Atrial fibrillation with rapid ventricular response I48.91 Acute kidney injury N17.9 Lymphedema I89.0 Open wound of left lower extremity with complication S81.802A Hypertension I10 Anxiety and depression F41.9; F32.A Morbid obesity E66.01 Time Spent (min) 80
[2025-07-05 02:06] LABS: Troponin 5 6HR 42.69 ng/L (0-10); Troponin 5 6HR Delta 2.69 ng/L (0-12)
[2025-07-05] MEDS: norepinephrine 4 MG/250 ML BAG 67.5 MG IV (02:07)
[2025-07-05] MEDS: heparin 5,000 unit/mL INJ 1 mL 5000 UNIT SUBCUT ×2 (02:08→15:10)
[2025-07-05 02:10] LABS: Alanine Aminotransferase 43 U/L (0-33); Albumin Level 2.9 g/dL (3.5-5.2); Alkaline Phosphatase 53 U/L (35-105); Anion Gap 18.5 (5-19); Aspartate Amino Transferase 64 U/L (0-32); Blood Urea Nitrogen 33 mg/dL (6-20); Calcium 7.5 mg/dL (8.5-10.5); Carbon Dioxide 21 mmol/L (22-29); Chloride 99 mmol/L (98-107); Creatinine Clr Calc Pharmacy 67.6366; Globulin 3.6 g/dL (1.3-4.6); Glucose 112 mg/dL (65-115); Magnesium 1.3 mg/dL (1.7-2.3); Osmolality Calculated 286 mOsm/kg (285-295); Potassium 4.5 mmol/L (3.5-5.1); Sodium 134 mmol/L (136-145); Total Protein 6.5 g/dL (6.6-8.7)
[2025-07-05 02:21] LABS: Slide Review Slide Review Perform
--- NOTE | 2025-07-05 03:05 | PC.NURSE ---
Addendum entered by SIXTO Ontiveros 07/05/25 03:42: Provider gave order for 10mg Cardizem IVP once. Order placed. See MAR Original Note: Provider notified that patient is still in afib and not converted to sinus rhythm, along with rates close to 150 at times. Clarified if provider wanted to follow protocol on Amiodarone drip and decrease rate to 0.5mg/min. She stated she did want to follow protocol. Pump decreased and set to 0.5mg/min per protocol.
[2025-07-05] MEDS: dilTIAZem 5 mg/mL SDV 5 mL 10 MG IVP (04:07)
[2025-07-05] MEDS: norepinephrine 4 MG/250 ML BAG 30 MG IV (06:23)
--- NOTE | 2025-07-05 07:10 | PHA.VACGOAL ---
Vancomycin Goal - Goal Vancomycin Goal:: 15-20 mg/L Vancomycin Indication:: Other (SEPSIS) - Therapy Current therapy:: Meropenem Day of therpy:: Day []of [] . Actual body weight (kg): 519 lb 6.545 oz - Data Labs: WBC 21.95 10^3/uL (3.29-11.43) H 07/05/25 01:33 RBC 4.11 10^6/uL (3.85-5.65) 07/05/25 01:33 Hgb 11.00 g/dL (11.27-16.99) L 07/05/25 01:33 Hct 34.6 % (36-47) L 07/05/25 01:33 MCV 84.2 fl (85-98) L 07/05/25 01:33 MCH 26.8 pg (27-33) L 07/05/25 01:33 MCHC 31.8 g/dL (30-55) 07/05/25 01:33 RDW 16.5 % (12.1-15.1) H 07/05/25 01:33 Sodium 134 mmol/L (136-145) L 07/05/25 01:33 Sodium Cancelled 07/05/25 01:33 Potassium 4.5 mmol/L (3.5-5.1) 07/05/25 01:33 Potassium Cancelled 07/05/25 01:33 Chloride 99 mmol/L (98-107) 07/05/25 01:33 Chloride Cancelled 07/05/25 01:33 Carbon Dioxide 21 mmol/L (22-29) L 07/05/25 01:33 Carbon Dioxide Cancelled 07/05/25 01:33 Anion Gap 18.5 (5-19) 07/05/25 01:33 Anion Gap Cancelled 07/05/25 01:33 BUN 33 mg/dL (6-20) H 07/05/25 01:33 BUN Cancelled 07/05/25 01:33 Creatinine 2.1 mg/dL (0.5-0.9) H 07/05/25 01:33 Creatinine Cancelled 07/05/25 01:33 GFR Calculation 24.7 mL/min (90-130) L 07/05/25 01:33 GFR Calculation Cancelled 07/05/25 01:33 Last dialysis session:: N/A Drug administration history:: Medications Vancomycin HCl (Vancocin) 1,500 mg in 300 mls @ 200 mls/hr IV Q12H MONAE Last Admin: 07/05/25 06:30 Dose: 200 mls/hr Discontinued Medications Vancomycin HCl 1,000 mg/ (Sodium Chloride) 250 mls @ 250 mls/hr IV ONCE ONE; Protocol Stop: 07/04/25 21:36 Last Admin: 07/04/25 23:12 Dose: Infused Treatment plan:: new consult Regimen:: 1000 MG DOSE GIVEN IN ER STARTED MAINTENANCE DOSE OF 1500 MG Q12H PER DOSING PROTOCOL. Follow up:: WILL CONTINUE TO MONITOR AND FOLLOW UP DAILY
--- NOTE | 2025-07-05 09:10 | PC.PHAR ---
pt states her medications are all messed up and she can't seem to get the help she needs to straighten them out and get the right ones filled every month. She would be a good candidate for home health to help her set them up monthly.
--- NOTE | 2025-07-05 09:10 | PC.NURSE ---
Dr Batista bedside discussing POC, noticed patients fever, received additional one time dose of tylenol see MAR.
--- NOTE | 2025-07-05 09:11 | PC.NURSE ---
Dr Batista also ordered cdiff test on patient.
[2025-07-05] MEDS: meropenem 1,000 mg SDV 1000 MG IVP ×2 (10:47→23:10)
--- NOTE | 2025-07-05 12:17 | PC.NURSE ---
Dr. Batista ordered stat CT, called signal operator technical, she came down with tape measure and measured patient. Patient's width to wide for machine. Notified Dr. Batista.
[2025-07-05] MEDS: ondansetron 2 mg/ML SDV 2 mL 4 MG IVP ×2 (12:31→19:54)
--- NOTE | 2025-07-05 12:56 | PC.NURSE ---
Cancel CT order due to patients size per Dr. Maty ray
[2025-07-05] MEDS: norepinephrine 4 MG/250 ML BAG 22.5 MG IV (17:01)
--- NOTE | 2025-07-05 17:36 | P.PN_ITS ---
Subjective 2 Subjective: Patient was seen this morning, currently alert oriented x 3, follow commands, she does report feeling feverish, having chills, no nausea, no vomiting, no flank pain, she does report having a dog in the home, but denies any licking/scratching/bites by her animal, does report dysuria, no history of kidney stones, she tells me that she used to follow-up with wound care, Vitals/I&O/Wt Last Vital Signs Temp 100.2 F H 07/05/25 12:00 Pulse 123 H 07/05/25 14:45 Resp 29 H 07/05/25 14:45 BP 127/61 07/05/25 14:45 Pulse Ox 98 07/05/25 14:45 O2 Del Method Nasal Cannula 07/05/25 08:38 O2 Flow Rate 4 07/05/25 08:38 07/05/25 07/05/25 07/05/25 06:59 14:59 22:59 Intake Total 6148.061 / 6259.311 1754.199 / 1754.199 231.375 / 1984.574 Output Total 1025 / 1025 Balance 5123.061 / 5234.311 1754.199 / 1754.199 231.375 / 1984.574 Weight last 48 hrs Weight 235.6 kg Weight 235.6 kg Weight 225.889 kg Weight 225.889 kg Physical Exam 2 Const: COMMON NORMALS: no acute distress and patient oriented x3 Neck/C-Spine: OTHER: Right neck central line in place Resp: COMMON NORMALS: normal respiratory effort, No retractions, No use of accessory muscles and clear to auscultation bilaterally AUSCULTATION: clear to auscultation bilaterally Cardio: COMMON NORMALS: regular rate, regular rhythm, S1 normal heart sound present and S2 normal heart sound present RATE: regular rate RHYTHM: r egular rhythm HEART SOUNDS: S1 normal heart sound present and S2 normal heart sound present GI: COMMON NORMALS: Normal to inspection, nondistended, normoactive bowel sounds present and non-tender Extremity: COMMON NORMALS: no pedal edema Neuro: COMMON NORMALS: patient oriented x3, CN's II-XII intact bilaterally and moves all extremities Psych: COMMON NORMALS: mental status grossly normal Skin: NARRATIVE SKIN EXAM: Right lower extremity - Has 2+ pitting edema - Multiple skin changes, erythema/swelli ng/warmth extending from forefoot to just below no the knee - With superficial abrasions, nodules, h as open sores, multiple open areas of ulceration Left lower extremity - 2+ pitting edema - Multiple superficial skin changes, gutierrez thema/swelling/warmth extending from forefoot to just below the knee - Patient has multiple ruptured blisters largest measuring 5 x 5 cm, has multiple open areas of ulceration Urinary Catheter Management: Brumfield: Cath Placed During This Visit: yes Reason for Continuing Indwelling Catheter: Accurate Measurement of Urinary Output in Critically Ill Patients Urinary Catheter Date of Insertion: 07/04/25 Urinary Catheter Time of Insertion: 21:30 Data 07/05/25 01:33 07/05/25 01:33 Micro: Microbiology 07/04/25 20:00 Blood Culture - Preliminary Blood SPECIMEN COLLECTED 07/04/25 19:46 Blood Culture - Preliminary Blood SPECIMEN COLLECTED A&P Assessment and plan 1. Sepsis: 2. Cellulitis: 3. Cystitis: 4. Rhabdomyolysis: 5. Atrial fibrillation with rapid ventricular response: 6. Acute kidney injury: 7. Lymphedema: 8. Open wound of left lower extremity with complication: 9. Hypertension: 10. Anxiety and depression: 11. Morbid obesity: 12. Septic shock: Plan: Sepsis with septic shock - Source -Cellulitis of bilateral extremities, concern for deep tissue infection -Urinary tract infection Plan -Blood cultures -Wound culture -Urine culture -Vancomycin -Meropenem -Add clindamycin -Levophed, maintain MAP greater than 65 - Continue albumin Urinary tract infection -Cannot do a CT scan abdomen pelvis given patient's BMI, and girth - Will order renal ultrasound - Continue antibiotics as above Cellulitis, deep tissue injury bilateral extremities - Continue antibiotics as above - Will try to attempt CT scan of bilateral extremities - General Surgery consulted for consideration of debridement Atrial fibrillation with rapid ventricular response - Continue amiodarone drip - [id number] score 2 Lactic acidosis -Secondary to septic shock as above Rhabdomyolysis - Addressed with IV hydration, will hold off on further IV hydration given concerns for fluid overload Continue to monitor Acute renal failure - Secondary to sepsis, septic shock, rhabdomyolysis - Renal ultrasound - Monitor urine output, monitor creatinine NSTEMI - No chest pain complaints - Serial EKGs, serial troponins, telemetry monitoring Hypomagnesemia will replace IV Protonix for GI prophylaxis Heparin for DVT prophylaxis Full code PDMP PDMP Reviewed: Not Reviewed Attestations 2 Medical Necessity Statement*: Patient requires hospitalization, for septic shock, secondary bilateral extremity cellulitis, UTI, atrial fibrillation, lactic acidosis, acute renal failure Coding Level of Care Code Critical Care >/= 30 minutes Critical care time (in minutes): 50 The high probability of a clinically significant, sudden or life threatening deterioration, as referenced in this documentation, required my full and direct attention, intervention and personal management. The critical care time shown is in addition to time spent performing any reported separately billable procedures and includes the following: [x] Data and vital sign review and interpretation [x ] Patient assessment, examination and intervention [x] Medication orders and management [x] Patient/Family updates as able [x] Care Coordination and Documentation. Diagnoses Sepsis A41.9 Cellulitis L03.90 Cystitis N30.90 Rhabdomyolysis M62.82 Atrial fibrillation with rapid ventricular response I48.91 Acute kidney injury N17.9 Lymphedema I89.0 Open wound of left lower extremity with complication S81.802A Hypertension I10 Anxiety and depression F41.9; F32.A Morbid obesity E66.01 Septic shock A41.9; R65.21 Sepsis Event Note Focused Exam Vital Signs Temp Pulse Resp BP Pulse Ox O2 Del Method O2 Flow Rate 07/05/25 14:45 123 H 29 H 127/61 98 07/05/25 14:30 106 H 24 H 112/59 97 07/05/25 14:15 112 H 28 H 114/64 98 07/05/25 14:00 109 H 25 H 104/79 97 07/05/25 14:00 108 H 07/05/25 13:45 93 24 H 102/74 98 07/05/25 13:30 102 H 26 H 100/64 99 07/05/25 13:15 117 H 22 H 104/70 99 07/05/25 13:00 114 H 24 H 92/65 98 07/05/25 12:45 112 H 26 H 87/53 98 07/05/25 12:30 110 H 25 H 114/92 98 07/05/25 12:15 121 H 25 H 87/54 98 07/05/25 12:00 100.2 F H 123 H 20 H 86/59 98 07/05/25 11:45 124 H 30 H 96/58 98 07/05/25 11:30 114 H 42 H 106/63 97 07/05/25 11:15 127 H 21 H 90/57 97 07/05/25 11:00 119 H 31 H 99/64 98 07/05/25 10:45 122 H 28 H 105/55 97 07/05/25 10:30 118 H 28 H 91/51 98 07/05/25 10:15 114 H 34 H 116/52 99 07/05/25 10:00 123 H 26 H 109/63 98 07/05/25 09:45 113 H 27 H 113/76 99 07/05/25 09:30 123 H 34 H 91/58 99 07/05/25 09:15 115 H 32 H 114/63 100 07/05/25 09:00 133 H 23 H 94/65 99 07/05/25 08:45 115 H 30 H 117/54 98 07/05/25 08:38 124 H 22 H 98 Nasal Cannula 4 07/05/25 08:30 118 H 30 H 77/63 98 07/05/25 08:15 101.5 F H 120 H 34 H 98/52 97 07/05/25 08:00 118 H 35 H 91/58 97 07/05/25 07:45 125 H 32 H 87/60 07/05/25 07:30 129 H 30 H 91/59 85 L 07/05/25 07:15 127 H 32 H 90/53 95 07/05/25 07:00 121 H 33 H 113/61 95 07/05/25 06:47 101.5 F H 07/05/25 06:45 130 H 34 H 111/70 97 07/05/25 06:30 133 H 32 H 137/67 95 07/05/25 06:15 127 H 33 H 122/60 95 07/05/25 06:00 128 H 29 H 99/82 95 07/05/25 05:45 137 H 33 H 136/71 96 Respiratory exam: Present wheezes Cardiovascular exam: Present tachycardia and irregularly irregular Capillary refill: > 3 Seconds Peripheral pulse strength: 2+ Slightly Diminished Peripheral pulse location: Pedal Skin exam: flushed Date exam was performed: 07/05/25 Time exam was performed: 17:47 Problem List 1. Sepsis: Status: Acute 2. Cellulitis: Status: Acute 3. Cystitis: Status: Acute 4. Rhabdomyolysis: Status: Acute 5. Atrial fibrillation with rapid ventricular response: Status: Acute 6. Acute kidney injury: Status: Acute 7. Lymphedema: Status: Acute 8. Open wound of left lower extremity with complication: Status: Acute 9. Hypertension: Status: Acute 10. Anxiety and depression: Status: Acute 11. Morbid obesity: Status: Acute
--- NOTE | 2025-07-05 17:44 | PM.CONSULT ---
Providers/Reason For Consult Consulting Physician/Specialty*: dr argueta general surgery Reason for Consult*: bilateral lower extremity soft tissue infection Attending Physician: Trip Batista MD Primary Care Provider: ANDRES Hernandez History of Present Illness History of Present Illness Ziyad Felipe is a 50 year old female whom surgery consulted for BL lower extremity soft tissue infection. Known to wound care for management of lymphedema. On exam bilateral lower extremities are erythematous, no fluctuance, no crepitation. Levo down to 2 from 6 earlier this afternoon. Patient is refusing CT scan to rule out necrotizing soft tissue infection. Medications/Allergies Home Medications ?Medication ?Instructions ?Recorded ?Confirmed ?Last Taken ?Type bumetanide 2 mg tablet 2 mg PO DAILY #120 tabs 05/17/24 07/05/25 07/12/24 Rx hydrocodone 10 mg-acetaminophen 1 tab PO QID PRN pain 06/28/24 07/05/25 07/04/25 History 325 mg tablet naloxone 4 mg/actuation nasal spray 4 mg intranasal Q2M PRN Opioid 06/28/24 07/05/25 Unknown History Overdose pregabalin 50 mg capsule 50 mg PO BID #60 caps 12/09/24 07/05/25 Unknown Rx cholecalciferol (vitamin D3) 1,250 50,000 unit PO .once weekly #12 02/23/25 07/05/25 Unknown Rx mcg (50,000 unit) capsule caps cefadroxil 500 mg capsule 1,000 mg (2 x 500 mg) PO Q12H PRN 03/16/25 07/05/25 Unknown Rx cellulitis 7 days #28 caps albuterol sulfate 90 mcg/actuation 2 puff inhalation Q4H PRN 07/05/25 07/05/25 Unknown History aerosol inhaler (Ventolin HFA) Shortness Of Breath Or Wheezing budesonide-formoterol HFA 160 2 puff inhalation BID 07/05/25 07/05/25 07/04/25 History mcg-4.5 mcg/actuation aerosol inhaler (Breyna) losartan 100 mg tablet 100 mg PO DAILY 07/05/25 07/05/25 07/04/25 History ondansetron HCl 4 mg tablet 4 mg PO Q8H PRN Nausea And Vomiting 07/05/25 07/05/25 Unknown History pantoprazole 40 mg tablet,delayed 40 mg PO BID 07/05/25 07/05/25 Unknown History release solifenacin 10 mg tablet 10 mg PO DAILY 07/05/25 07/05/25 07/04/25 History tizanidine 4 mg tablet 4 mg PO TID PRN muscle spasms 07/05/25 07/05/25 07/04/25 History tramadol 100 mg tablet,extended 100 mg PO DAILY 07/05/25 07/05/25 Unknown History release 24 hr trazodone 100 mg tablet 100 mg PO BEDTIME 07/05/25 07/05/25 07/04/25 History Allergies Allergy/AdvReac Type Severity Reaction Status Date / Time red dye Allergy Intermediate rash Verified 06/08/25 09:49 amoxicillin (From Augmentin) Allergy HIVES AND Verified 06/08/25 09:49 ITCHING clavulanic acid (From Allergy HIVES AND Verified 06/08/25 09:49 Augmentin) ITCHING meperidine (From Demerol) Allergy HIVES, Verified 06/08/25 09:49 ITCHING AND SHORTNESS OF BREATH Current Medications Generic Name Dose Route Start Last Admin Trade Name Freq PRN Reason Stop Dose Admin Acetaminophen 650 mg 07/05/25 01:34 07/05/25 06:30 Acetaminophen 325 Mg Tablet PO 650 mg Q6H PRN Administration Mild/Mod Pain Or Temp >/= 101 Docusate Sodium 100 mg 07/05/25 09:00 07/05/25 15:31 Docusate Sodium 100 Mg Capsule PO Not Given BID [facility] Heparin Sodium (Porcine) 5,000 unit 07/05/25 01:45 07/05/25 15:10 Heparin 5,000 Unit/Ml Inj 1 Ml SUBCUT 5,000 unit Q12H MONAE Administration Amiodarone HCl/Dextrose 360 mg in 200 mls @ 0 mls/hr 07/04/25 19:38 07/05/25 12:36 Nexterone IV 0.5 mg/min .Q0M MONAE 16.67 mls/hr Protocol Administration Per Protocol Norepinephrine Bitartrate 4 mg in 250 mls @ 0 mls/hr 07/04/25 22:45 07/05/25 17:04 Levophed IV 4 mcg/min .Q0M MONAE 15 mls/hr Protocol Titration Per Protocol Vancomycin HCl 1,500 mg in 300 mls @ 200 mls/hr 07/05/25 07:00 07/05/25 08:21 Vancocin IV Infused Q12H MONAE Infusion Meropenem 1,000 mg 07/05/25 11:00 07/05/25 10:47 Meropenem 1,000 Mg Sdv IVP 1,000 mg Q12H MONAE Administration Protocol Ondansetron HCl 4 mg 07/04/25 23:50 07/05/25 12:31 Ondansetron 2 Mg/Ml Sdv 2 Ml IVP 4 mg Q6H PRN Administration NAUSEA AND VOMITING Pantoprazole Sodium 40 mg 07/05/25 09:00 07/05/25 08:[address] 40 Mg Tablet PO 40 mg DAILY MONAE Administration PFSH Acute PFSH: Medical History (Updated 07/05/25 @ 17:39 by Trip Batista MD) Lymphedema Hypertension Morbid obesity Colon polyps Morbid obesity Venous stasis dermatitis Anasarca Cellulitis of left lower leg Acute diastolic heart failure Cellulitis Bilateral lower leg cellulitis Obesity hypoventilation syndrome Accelerated hypertension Smokes cigarettes Lower limb ulcer, ankle Lymphedema associated with obesity Polycystic ovarian syndrome Longstanding diagnosis, dating back to 2003. Has been on and off treatment for many years. LAURA (obstructive sleep apnea) Osteoarthritis of knees, bilateral Chronic low back pain with left-sided sciatica > 50% of 45 min visit counseling patient regarding weight. Encounter for long-term opiate analgesic use Current every day smoker Degeneration of intervertebral disc of cervical spine without disc herniation Arthralgia of cervical spine Surgical History S/P total abdominal hysterectomy (08/01/20) With RSO. Performed by Dr. Deshpande at [facility] in [place], [place]. Path showed polyp with complex hyperplasia with atypia Status post hysteroscopy (~05/09/20) Hysteroscopy with dilation and curettage with Dr. Paul Deshpande at [facility] History of laparoscopic cholecystectomy (~1993) History of D&C (~09/2003) History of laparoscopy (09/21/18) Dx: Small bowel obstruction. Lysis of adhesions. Performed by Dr. Yee at [facility]. History of left salpingo-oophorectomy (01/15/06) Laparotomy. Performed by Dr. Lovelace at [facility]. 10 cm left adnexal cystic mass. History of bariatric surgery (~2017) Laparoscopic gastric sleeve. H/O bariatric surgery (09/14/12) Laparoscopic band. H/O section 12/21/1991, 12/14/1993, 04/17/1995. Family History Father Diabetes Hypertension Social History Smoking and tobacco/nicotine status: former use of tobacco/nicotine (quit 15 months ago) Alcohol intake: never Substance/Drug Use: never Vitals/I&O/Wt Last Vital Signs Temp 100.2 F H 07/05/25 12:00 Pulse 123 H 07/05/25 14:45 Resp 29 H 07/05/25 14:45 BP 127/61 07/05/25 14:45 Pulse Ox 98 07/05/25 14:45 O2 Del Method Nasal Cannula 07/05/25 08:38 O2 Flow Rate 4 07/05/25 08:38 07/05/25 07/05/25 07/05/25 06:59 14:59 22:59 Intake Total 6148.061 / 6259.311 1754.199 / 1754.199 231.375 / 1985.574 Output Total 1025 / 1025 Balance 5123.061 / 5234.311 1754.199 / 1754.199 231.375 / 1985.574 Weight last 48 hrs Weight 519 lb 6.545 oz Weight 519 lb 6.545 oz Weight 498 lb Weight 498 lb Physical Exam Narrative: obese sinus tachycardia unlabored breathing 2L NC bilateral lower extremity cellulitis, no crepitation, no fluctuance. Severe bilateral lower extremity lymphedema, elephantiasis. Urinary Catheter Management: Brumfield: Cath Placed During This Visit: yes Reason for Continuing Indwelling Catheter: Accurate Measurement of Urinary Output in Critically Ill Patients Urinary Catheter Date of Insertion: 07/04/25 Urinary Catheter Time of Insertion: 21:30 Data 07/05/25 01:33 07/05/25 01:33 Micro: Microbiology 07/04/25 20:00 Blood Culture - Preliminary Blood SPECIMEN COLLECTED 07/04/25 19:46 Blood Culture - Preliminary Blood SPECIMEN COLLECTED A&P Assessment and plan 1. Cellulitis: Plan: 50yo female whom surgery was consulted for bilateral lower extremity soft tissue infection. Clinical picture most consistent with cellulitis. Patient refusing CT scan to rule out an abscess/necrotizing soft tissue infection. Recommend with antibiotics for cellulitis. At this point no indication for surgery. PDMP PDMP Reviewed: Not Reviewed Coding Level of Care Code 12560 Diagnoses Cellulitis L03.90
[2025-07-05] MEDS: albumin 25 G/100 ML BAG 60 G IV (18:21)
--- NOTE | 2025-07-05 18:45 | PC.NURSE ---
Patient refused CT
[2025-07-05] MEDS: magnesium sulfate premix 1 GM/100 ML PIGGYBACK IV (18:46)
[2025-07-05] MEDS: morphine 4 mg/mL SDV 1 mL IVP (19:37)
[2025-07-05 20:02] LABS: MRSA PCR OZH (swab) NOT DETECTED (Not Detecte)
[2025-07-05 20:13] LABS: Bacillus cereus group Not Detected (NOT DETECT); Bacillus subtillis group Not Detected (NOT DETECT); Corynebacterium Not Detected (NOT DETECT); Cutibacterium acnes (P.acnes) Not Detected (NOT DETECT); Enterococcus faecalis Not Detected (NOT DETECT); Enterococcus faecium Not Detected (NOT DETECT); Listeria Not Detected (NOT DETECT); Micrococcus Not Detected (NOT DETECT); Pan Candida Not Detected (NOT DETECT); Pan Gram-Negative Not Detected (NOT DETECT); Staphylococcus epidermidis Not Detected (NOT DETECT); Staphylococcus lugdunensis Not Detected (NOT DETECT); Staphylococcus species Detected (NOT DETECT); Streptococcus anginosus group Not Detected (NOT DETECT); Streptococcus pyogenes Not Detected (NOT DETECT); Streptococcus species Not Detected (NOT DETECT); mecA Detected (NOT DETECT); mecC Not Detected (NOT DETECT)
[2025-07-06] VITALS (100 sets, daily range): BP systolic 75–143; BP diastolic 42–92; PULSE 79–131; RESP 14–33; TEMP 37–37.8; O2SAT 87–99
[2025-07-06] MEDS: AMIODARONE HCL/D5W 900 MG/500 ML BAG 16.67 MG IV (00:49)
[2025-07-06] MEDS: morphine 4 mg/mL SDV 1 mL IVP ×6 (01:09→23:45)
[2025-07-06] MEDS: heparin 5,000 unit/mL INJ 1 mL 5000 UNIT SUBCUT ×2 (01:09→14:03)
[2025-07-06] MEDS: albumin 25 G/100 ML BAG 60 G IV ×2 (01:09→09:51)
[2025-07-06 04:00] LABS: Hematocrit 29.3 % (36-47); Hemoglobin 9.20 g/dL (11.27-16.99); Mean Corpuscular HGB Conc 31.4 g/dL (30-55); Mean Corpuscular Hemoglobin 26.6 pg (27-33); Mean Corpuscular Volume 84.7 fl (85-98); Nucleated Red Blood Cells % 0 %; Platelet Count 146 10^3/cmm (157-399); Red Blood Count 3.46 10^6/uL (3.85-5.65); White Blood Count 11.09 10^3/uL (3.29-11.43)
[2025-07-06 04:25] LABS: Lactate (Lactic Acid level) 1.1 mmol/L (0.5-2.2)
[2025-07-06 04:29] LABS: NT Pro B Type Natriuretic Pept 5601 pg/mL (0-125); Procalcitonin 44.94 ng/mL (0-0.5)
[2025-07-06 04:30] LABS: Alanine Aminotransferase 41 U/L (0-33); Albumin Level 2.7 g/dL (3.5-5.2); Alkaline Phosphatase 71 U/L (35-105); Anion Gap 15.6 (5-19); Aspartate Amino Transferase 49 U/L (0-32); Blood Urea Nitrogen 36 mg/dL (6-20); Calcium 7.5 mg/dL (8.5-10.5); Carbon Dioxide 24 mmol/L (22-29); Chloride 103 mmol/L (98-107); Creatinine Clr Calc Pharmacy 94.6913; Globulin 3.8 g/dL (1.3-4.6); Glucose 106 mg/dL (65-115); Magnesium 1.8 mg/dL (1.7-2.3); Osmolality Calculated 297 mOsm/kg (285-295); Potassium 3.6 mmol/L (3.5-5.1); Sodium 139 mmol/L (136-145); Total Protein 6.5 g/dL (6.6-8.7)
[2025-07-06 04:54] LABS: Slide Review Slide Review Perform
--- NOTE | 2025-07-06 08:04 | P.PN_ITS ---
Subjective 2 Subjective: NAEON Vitals/I&O/Wt Last Vital Signs Temp 98.9 F 07/06/25 04:30 Pulse 87 07/06/25 07:58 Resp 16 07/06/25 07:58 BP 90/60 07/06/25 07:45 Pulse Ox 95 07/06/25 07:58 O2 Del Method Nasal Cannula 07/06/25 07:58 O2 Flow Rate 4 07/06/25 07:58 07/05/25 07/06/25 07/06/25 22:59 06:59 14:59 Intake Total 969.125 / 2723.324 695 / 3418.324 Output Total 1900 / 1900 700 / 2600 Balance -930.875 / 823.324 -5 / 818.324 Weight last 48 hrs Weight 519 lb 6.545 oz Weight 519 lb 6.545 oz Weight 498 lb Weight 498 lb Physical Exam 2 Narrative: rrr unlabored breathing bl lower extremity cellulitis, elephantiasis Urinary Catheter Management: Brumfield: Cath Placed During This Visit: yes Reason for Continuing Indwelling Catheter: Accurate Measurement of Urinary Output in Critically Ill Patients Urinary Catheter Date of Insertion: 07/04/25 Urinary Catheter Time of Insertion: 21:30 Data 07/06/25 03:17 07/06/25 03:17 Micro: Microbiology 07/04/25 20:00 Blood Culture - Preliminary Blood NEGATIVE TO DATE 07/04/25 19:46 Blood Culture - Preliminary Blood Staphylococcus species 07/05/25 18:38 Gram Stain - Final Leg - #1 A&P Assessment and plan 1. Cellulitis: Plan: 50yo female with bilateral lower extremity cellulitis. Continue abx. No surgical intervention indicated. Discussed with hospitalist. PDMP PDMP Reviewed: Not Reviewed Attestations 2 Medical Necessity Statement*: NA Coding Level of Care Code 94251 Diagnoses Cellulitis L03.90
--- NOTE | 2025-07-06 08:29 | USCV_ITS ---
Ziyad Felipe Age: 50 Gender: F : 1975 Exam Date: 07/05/2025 22:33 Ordering Phys: Trip Batista MD Technologist: JOSS Exam Location: [facility] Indication: cp chf BP: 127 / 69 HR: 70 Rhythm: Sinus Technical Quality: MEASUREMENTS (Male / Female) Normal Values 2D ECHO LV Diastolic Diameter PLAX 3.7 cm 4.2 - 5.9 / 3.9 - 5.3 cm LV Systolic Diameter PLAX 2.7 cm IVS Diastolic Thickness 2.0 cm 0.6 - 1.0 / 0.6 - 0.9 cm IVS Systolic Thickness 2.3 cm LVPW Diastolic Thickness 1.3 cm 0.6 - 1.0 / 0.6 - 0.9 cm LVPW Systolic Thickness 1.3 cm LVOT Diameter 1.9 cm LV Ejection Fraction 2D Teich 53.3 % LV Ejection Fraction MOD 4C 58.5 % LV Ejection Fraction MOD 2C 68.8 % LV Ejection Fraction 2C AL 74.2 % LA Diameter 4.5 cm Aorta at Sinotubular Diameter 2.8 cm IVC Diameter 1.5 cm M-MODE LA Ao Ratio MM 1.8 AV Cusp Separation MM 2.1 cm DOPPLER AV Peak Velocity 136.0 cm/s LVOT Peak Velocity 105.0 cm/s AV Area Cont Eq vti 2.7 cm squared AV Area Cont Eq pk 2.3 cm squared MV Peak Velocity 99.0 cm/s MV Area PHT 2.9 cm squared TV Peak Velocity 248.0 cm/s TR Peak Velocity 280.0 cm/s TR Peak Gradient 31.4 mmHg TV Peak E Velocity 42.0 cm/s PV Peak Velocity 86.0 cm/s FINDINGS Left Ventricle Normal LV size landejection fraction of 58%. Moderate left ventricular hypertrophy. No regional wall motion abnormalities. Grade I/IV diastolic dysfunction (abnormal relaxation filling pattern), normal to mildly elevated filling pressures. Right Ventricle Normal right ventricular size and systolic function. Right Atrium Normal right atrial size. Left Atrium Mildly increased left atrial size. Mitral Valve Moderate mitral annular calcification. Thickened mitral valve. Mild mitral valve regurgitation. Aortic Valve Thickened aortic valve. Tricuspid Valve [id number] tricuspid valve regurgitation. Pulmonic Valve Trace pulmonary valve regurgitation. Pericardium No pericardial effusion. Aorta Normal aortic annulus size. IVC Normal inferior vena cava. CONCLUSIONS Normal LV size landejection fraction of 58%. Moderate left ventricular hypertrophy. No regional wall motion abnormalities. Grade I/IV diastolic dysfunction (abnormal relaxation filling pattern), normal to mildly elevated filling pressures. Mildly increased left atrial size. Moderate mitral annular calcification. Thickened mitral valve. Mild mitral valve regurgitation. Thickened aortic valve. [id number] tricuspid valve regurgitation. Estimated pulmonary artery peak systolic pressure 34 mmHg Trace pulmonary valve regurgitation. There is no pericardial effusion. There are no intracardiac masses. Comparison with the previous study is difficult because of the difference in the technical quality. Dr Karime Clay MD [facility] (Electronically Signed) Final Date: 06 July 2025 17:05 S
--- NOTE | 2025-07-06 09:06 | US_ITS ---
WS: [id number] RENAL ULTRASOUND HISTORY: VIC COMPARISON: None available. TECHNIQUE: 2-D and color Doppler imaging of the kidney submitted. Right kidney: 14.4 cm x 2.5 cm x 7.3 cm. Cortex: 2.1 cm Normal echogenicity with no hydronephrosis or mass. Left kidney: 12.9 cm x 7.8 cm x 7.4 cm. Cortex: 2.4 cm Normal echogenicity with no hydronephrosis or mass. Aorta: Normal. Urinary Bladder: Not visualized. US/US renal BI* [id number] IMPRESSION: Normal renal ultrasound.
--- NOTE | 2025-07-06 09:59 | PC.SOCIAL ---
IMM Update Updated pt on IMM. No questions voiced. Provided pt a copy. Initialed,dated, & timed a copy & placed in chart.
[2025-07-06] MEDS: meropenem 1,000 mg SDV 1000 MG IVP ×2 (10:43→23:27)
--- NOTE | 2025-07-06 15:48 | PC.NURSE ---
Dr. Batista gave verbal orders for nystatin and Lasix, see MAR>
--- NOTE | 2025-07-06 15:50 | P.PN_ITS ---
Subjective 2 Subjective: - Patient was seen this morning - She is alert oriented x 3, follow comm ands she is feeling significantly better - She is currently on 2 Levophed - No nausea, no vomiting, no abdominal p ain - Diarrhea has improved - She has just declined CT scan of bilat eral extremities, discussed the role of the CT scan was to rule out underlying abscess of her bilateral legs, she understands morbidity and mortality, associated with underlying abscess, deep tissue infection, she voices understanding, all questions were, for now she would like to hold off as she is clinically improving, understands morbidity and mortality, voiced understanding, all questions answered -Discussed her staphylococcal bacteremia - Discussed continue IV antibiotics, cli nical monitoring, she agrees Vitals/I&O/Wt Last Vital Signs Temp 98.6 F 07/06/25 08:45 Pulse 112 H 07/06/25 14:00 Resp 24 H 07/06/25 12:30 BP 106/54 07/06/25 12:30 Pulse Ox 92 07/06/25 12:30 O2 Del Method Nasal Cannula 07/06/25 07:58 O2 Flow Rate 4 07/06/25 07:58 07/06/25 07/06/25 07/06/25 06:59 14:59 22:59 Intake Total 695 / 3418.324 790 / 790 Output Total 700 / 2600 Balance -5 / 818.324 790 / 790 Weight last 48 hrs Weight 235.6 kg Weight 235.6 kg Weight 225.889 kg Weight 225.889 kg Physical Exam 2 Const: COMMON NORMALS: no acute distress and patient oriented x3 HENMT: COMMON NORMALS: normocephalic HEAD & SCALP: normocephalic Neck/C-Spine: COMMON NORMALS: no JVD Resp: COMMON NORMALS: normal respiratory effort, No retractions, No use of accessory muscles and clear to auscultation bilaterally AUSCULTATION: clear to auscultation bilaterally Cardio: COMMON NORMALS: no JVD, regular rate, regular rhythm, S1 normal heart sound present and S2 normal heart sound present RATE: regular rate RHYTHM: regular rhythm HEART SOUNDS: S1 normal heart sound present and S2 normal heart sound present GI: COMMON NORMALS: Normal to inspection, nondistended, normoactive bowel sounds present and non-tender Extremity: NARRATIVE EXTREMITY EXAM: Left lower extremity, erythema, swelling, tenderness, extending from the forefoot, up to anterior posterior leg compartments, up to the mid thigh Right lower extremity erythema, swelling, tenderness significantly improved compared to yesterday Neuro: COMMON NORMALS: patient oriented x3, CN's II-XII intact bilaterally and moves all extremities Psych: COMMON NORMALS: mental status grossly normal Urinary Catheter Management: Brumfield: Cath Placed During This Visit: yes Reason for Continuing Indwelling Catheter: Accurate Measurement of Urinary Output in Critically Ill Patients Urinary Catheter Date of Insertion: 07/04/25 Urinary Catheter Time of Insertion: 21:30 Data 07/06/25 03:17 07/06/25 03:17 Micro: Microbiology 07/05/25 18:38 Gram Stain - Final Leg - #1 Wound Culture - Preliminary 07/06/25 08:53 Blood Culture - Preliminary Blood SPECIMEN COLLECTED 07/06/25 08:51 Blood Culture - Preliminary Blood SPECIMEN COLLECTED 07/04/25 19:46 Blood Culture - Preliminary Blood Staphylococcus species 07/04/25 20:00 Blood Culture - Preliminary Blood NEGATIVE TO DATE A&P Assessment and plan 1. Sepsis: 2. Cellulitis: 3. Cystitis: 4. Rhabdomyolysis: 5. Atrial fibrillation with rapid ventricular response: 6. Acute kidney injury: 7. Lymphedema: 8. Open wound of left lower extremity with complication: 9. Hypertension: 10. Anxiety and depression: 11. Morbid obesity: 12. Septic shock: Plan: Sepsis with septic shock - Source -Cellulitis of bilateral extremities, concern for deep tissue infection -Urinary tract infection Plan -is on 2 of levophed -Blood cultures -Wound culture -Urine culture -Vancomycin -Meropenem -Add clindamycin, will discontinue in the next 24 to 48 hours based on clinical progress -The patient declined CT scan of bilateral lower extremity to evaluate for underlying abscess, deep tissue infection -Levophed, maintain MAP greater than 65 - Continue albumin Staphylococcal bacteremia -Follow identification - Continue IV antibiotics Urinary tract infection -Cannot do a CT scan abdomen pelvis given patient's BMI, and girth - Will order renal ultrasound, no acute findings - Continue antibiotics as above Cellulitis, deep tissue injury bilateral extremities - Continue antibiotics as above - General Surgery consulted for consideration of debridement, recommend medical management Atrial fibrillation with rapid ventricular response - Continue amiodarone drip transition to p.o. amiodarone - [id number] score 2 Lactic acidosis -Secondary to septic shock as above Rhabdomyolysis - Addressed with IV hydration, will hold off on further IV hydration given concerns for fluid overload Continue to monitor Here in [place] bilateral extremity edema will okay 1 dose IV Lasix Acute renal failure, improving - Secondary to sepsis, septic shock, rhabdomyolysis - Renal ultrasound - Monitor urine output, monitor creatinine NSTEMI - No chest pain complaints - Serial EKGs, serial troponins, telemetry monitoring Hypomagnesemia monitor Protonix for GI prophylaxis Heparin for DVT prophylaxis Full code PDMP PDMP Reviewed: Not Reviewed Attestations 2 Medical Necessity Statement*: Patient presents with presumptive staphylococcal bacteremia, cellulitis uti acute renal failure, NSTEMI Coding Level of Care Code Critical Care >/= 30 minutes Critical care time (in minutes): 35 The high probability of a clinically significant, sudden or life threatening deterioration, as referenced in this documentation, required my full and direct attention, intervention and personal management. The critical care time shown is in addition to time spent performing any reported separately billable procedures and includes the following: [x] Data and vital sign review and interpretation [x ] Patient assessment, examination and intervention [x] Medication orders and management [x] Patient/Family updates as able [x] Care Coordination and Documentation. Diagnoses Sepsis A41.9 Cellulitis L03.90 Cystitis N30.90 Rhabdomyolysis M62.82 Atrial fibrillation with rapid ventricular response I48.91 Acute kidney injury N17.9 Lymphedema I89.0 Open wound of left lower extremity with complication S81.802A Hypertension I10 Anxiety and depression F41.9; F32.A Morbid obesity E66.01 Septic shock A41.9; R65.21
[2025-07-06] MEDS: FUROsemide 10 mg/mL SDV 4mL 40 MG IVP (16:00)
[2025-07-06] MEDS: albumin 25 G/100 ML BAG 90 G IV (17:36)
[2025-07-06] MEDS: ondansetron 2 mg/ML SDV 2 mL 4 MG IVP (21:16)
[2025-07-07] VITALS (67 sets, daily range): BP systolic 86–146; BP diastolic 63–104; PULSE 89–122; RESP 17–32; TEMP 36.9–37; O2SAT 88–97
[2025-07-07] MEDS: albumin 25 G/100 ML BAG 60 G IV ×3 (01:16→17:25)
[2025-07-07] MEDS: heparin 5,000 unit/mL INJ 1 mL 5000 UNIT SUBCUT ×2 (01:17→13:20)
[2025-07-07] MEDS: morphine 4 mg/mL SDV 1 mL IVP ×2 (04:28→08:55)
[2025-07-07] MEDS: ondansetron 2 mg/ML SDV 2 mL 4 MG IVP (05:03)
[2025-07-07 05:31] LABS: Hematocrit 28.9 % (36-47); Hemoglobin 9.00 g/dL (11.27-16.99); Mean Corpuscular HGB Conc 31.1 g/dL (30-55); Mean Corpuscular Hemoglobin 26.4 pg (27-33); Mean Corpuscular Volume 84.8 fl (85-98); Nucleated Red Blood Cells % 0 %; Platelet Count 114 10^3/cmm (157-399); Red Blood Count 3.41 10^6/uL (3.85-5.65); White Blood Count 8.76 10^3/uL (3.29-11.43)
[2025-07-07 05:50] LABS: Lactate (Lactic Acid level) 1.1 mmol/L (0.5-2.2)
[2025-07-07 05:58] LABS: Magnesium 2.0 mg/dL (1.7-2.3)
[2025-07-07 05:59] LABS: NT Pro B Type Natriuretic Pept 3522 pg/mL (0-125); Procalcitonin 14.65 ng/mL (0-0.5)
[2025-07-07 06:01] LABS: Alanine Aminotransferase 32 U/L (0-33); Albumin Level 3.3 g/dL (3.5-5.2); Alkaline Phosphatase 101 U/L (35-105); Anion Gap 15.6 (5-19); Aspartate Amino Transferase 32 U/L (0-32); Blood Urea Nitrogen 26 mg/dL (6-20); Calcium 7.8 mg/dL (8.5-10.5); Carbon Dioxide 25 mmol/L (22-29); Chloride 104 mmol/L (98-107); Creatinine Clr Calc Pharmacy 177.5461; Globulin 2.9 g/dL (1.3-4.6); Glucose 100 mg/dL (65-115); Osmolality Calculated 297 mOsm/kg (285-295); Potassium 3.6 mmol/L (3.5-5.1); Sodium 141 mmol/L (136-145); Total Protein 6.2 g/dL (6.6-8.7)
[2025-07-07] MEDS: meropenem 1,000 mg SDV 1000 MG IVP ×2 (10:41→20:22)
--- NOTE | 2025-07-07 13:24 | P.PN_ITS ---
Subjective 2 Subjective: Patient was afebrile no nausea, no vomiting, no abdominal pain, no pain in lower extremities, denies any fevers, no chills Vitals/I&O/Wt Last Vital Signs Temp 98.4 F 07/07/25 09:15 Pulse 108 H 07/07/25 13:15 Resp 22 H 07/07/25 13:15 BP 125/82 07/07/25 13:15 Pulse Ox 93 07/07/25 13:15 O2 Del Method Nasal Cannula 07/07/25 08:09 O2 Flow Rate 4 07/07/25 08:09 07/06/25 07/07/25 07/07/25 22:59 06:59 14:59 Intake Total 891.866 / 1681.866 450 / 2131.866 120 / 120 Output Total 2150 / 2150 1650 / 3800 Balance -1258.134 / -468.134 -1200 / -1668.134 120 / 120 Physical Exam 2 Const: COMMON NORMALS: no acute distress and patient oriented x3 Resp: COMMON NORMALS: normal respiratory effort, No retractions, No use of accessory muscles and clear to auscultation bilaterally AUSCULTATION: clear to auscultation bilaterally Cardio: COMMON NORMALS: regular rate, regular rhythm, S1 normal heart sound present and S2 normal heart sound present RATE: regular rate RHYTHM: r egular rhythm HEART SOUNDS: S1 normal heart sound present and S2 normal heart sound present GI: COMMON NORMALS: Normal to inspection, nondistended, normoactive bowel sounds present and non-tender Extremity: COMMON NORMALS: no pedal edema NARRATIVE EXTREMITY EXAM: Left lower extremity, erythema, swelling, tenderness, extending up to mid thigh Multiple of superficial blisters Neuro: COMMON NORMALS: patient oriented x3 Psych: COMMON NORMALS: mental status grossly normal Urinary Catheter Management: Brumfield: Cath Placed During This Visit: yes Reason for Continuing Indwelling Catheter: Accurate Measurement of Urinary Output in Critically Ill Patients Urinary Catheter Date of Insertion: 07/04/25 Urinary Catheter Time of Insertion: 21:30 Data 07/07/25 05:12 07/07/25 05:12 Micro: Microbiology 07/05/25 18:38 Gram Stain - Final Leg - #1 Wound Culture - Preliminary 07/06/25 09:02 Urine Culture - Preliminary Urine Catheterized 07/06/25 08:51 Blood Culture - Preliminary Blood NEGATIVE TO DATE 07/06/25 08:53 Blood Culture - Preliminary Blood NEGATIVE TO DATE 07/04/25 19:46 Blood Culture - Preliminary Blood Staphylococcus species A&P Assessment and plan 1. Sepsis: 2. Cellulitis: 3. Cystitis: 4. Rhabdomyolysis: 5. Atrial fibrillation with rapid ventricular response: 6. Acute kidney injury: 7. Lymphedema: 8. Open wound of left lower extremity with complication: 9. Hypertension: 10. Anxiety and depression: 11. Morbid obesity: 12. Septic shock: Plan: Sepsis with septic shock - Source -Cellulitis of bilateral extremities, concern for deep tissue infection -Urinary tract infection Plan -is on 2 of levophed -Blood cultures, staph species -Wound culture -Urine culture -Vancomycin -Meropenem -clindamycin, -The patient declined CT scan of bilateral lower extremity to evaluate for underlying abscess, deep tissue infection -Levophed, maintain MAP greater than 65 - Continue albumin Staphylococcal bacteremia -Follow identification - Continue IV antibiotics Urinary tract infection -Cannot do a CT scan abdomen pelvis given patient's BMI, and girth - Will order renal ultrasound, no acute findings - Continue antibiotics as above Cellulitis, deep tissue injury bilateral extremities - Continue antibiotics as above - General Surgery consulted for consideration of debridement, recommend medical management Atrial fibrillation with rapid ventricular response - Continue amiodarone drip transition to p.o. amiodarone - [id number] score 2 - continue aspirin Bilateral scrotal edema, fluid overload - Lasix 40 IV twice daily Lactic acidosis -Secondary to septic shock as above Rhabdomyolysis - Addressed with IV hydration, will hold off on further IV hydration given concerns for fluid overload Continue to monitor Acute renal failure, improving - Secondary to sepsis, septic shock, rhabdomyolysis - Renal ultrasound - Monitor urine output, monitor creatinine NSTEMI - No chest pain complaints - Serial EKGs, serial troponins, telemetry monitoring Hypomagnesemia monitor Protonix for GI prophylaxis Heparin for DVT prophylaxis Full code PDMP PDMP Reviewed: Not Reviewed Attestations 2 Medical Necessity Statement*: Patient requires hospitalization for septic shock, staphylococcal bacteremia, UTI cellulitis, deep tissue injury, A-fib Diagnoses Sepsis A41.9 Cellulitis L03.90 Cystitis N30.90 Rhabdomyolysis M62.82 Atrial fibrillation with rapid ventricular response I48.91 Acute kidney injury N17.9 Lymphedema I89.0 Open wound of left lower extremity with complication S81.802A Hypertension I10 Anxiety and depression F41.9; F32.A Morbid obesity E66.01 Septic shock A41.9; R65.21
[2025-07-07] MEDS: HYDROcodone-acetaminophen 5-325 mg Tablet 1 TAB PO ×2 (14:21→19:15)
[2025-07-07] MEDS: linezolid premix 600 MG/300 ML PREMIX 300 MG IV (14:21)
[2025-07-07] MEDS: FUROsemide 10 mg/mL SDV 4mL 40 MG IVP (14:22)
--- NOTE | 2025-07-07 15:10 | P.PN_ITS ---
Subjective 2 Subjective: No changes No acute events overnight Off Levophed Vitals/I&O/Wt Last Vital Signs Temp 98.4 F 07/07/25 09:15 Pulse 107 H 07/07/25 14:30 Resp 27 H 07/07/25 14:30 BP 134/82 07/07/25 14:30 Pulse Ox 94 07/07/25 14:30 O2 Del Method Nasal Cannula 07/07/25 08:09 O2 Flow Rate 4 07/07/25 08:09 07/07/25 07/07/25 07/07/25 06:59 14:59 22:59 Intake Total 450 / 2131.866 120 / 120 Output Total 1650 / 3800 Balance -1200 / -1668.134 120 / 120 Physical Exam 2 Narrative: Chest: Unlabored breathing room air. No lymphadenopathy. Heart: Regular rate and rhythm. Abdomen: Soft, nontender, nondistended. No masses or lymphadenopathy. Bilateral lower extremity cellulitis and elephantiasis Urinary Catheter Management: Brumfield: Cath Placed During This Visit: yes Reason for Continuing Indwelling Catheter: Accurate Measurement of Urinary Output in Critically Ill Patients Urinary Catheter Date of Insertion: 07/04/25 Urinary Catheter Time of Insertion: 21:30 Data 07/08/25 05:26 07/08/25 05:26 Micro: Microbiology 07/05/25 18:38 Gram Stain - Final Leg - #1 Wound Culture - Preliminary 07/06/25 09:02 Urine Culture - Preliminary Urine Catheterized 07/06/25 08:51 Blood Culture - Preliminary Blood NEGATIVE TO DATE 07/06/25 08:53 Blood Culture - Preliminary Blood NEGATIVE TO DATE A&P Assessment and plan 1. Cellulitis: Plan: 50-year-old female with bilateral lower extremity cellulitis and elephantiasis. Patient refusing CT scan. Given clinical improvement on antibiotics I have a low suspicion for an abscess or a necrotizing soft tissue infection. Continue treating with antibiotics. From a surgical perspective since patient does not want a CT scan nothing to add to her care at this point. PDMP PDMP Reviewed: Not Reviewed Attestations 2 Medical Necessity Statement*: N/A Coding Level of Care Code 34120 Diagnoses Cellulitis L03.90
--- NOTE | 2025-07-07 15:45 | PC.NURSE ---
Patient was taken up to [facility] via bed. Leg continues to weep copious amounts. Buttocks and thighs are dusky/bruised but blanchable.
--- NOTE | 2025-07-07 15:47 | PM.CONSULT ---
Providers/Reason For Consult Consulting Physician/Specialty*: Jillian Goodson MD/ Infectious Disease Reason for Consult*: cellulitis, staphylococcus bacteremia Requesting Physician: Trip Batista MD Attending Physician: Trip Batista MD Primary Care Provider: ANDRES Hernandez History of Present Illness History of Present Illness Ziyad Felipe is a 50 year old female with a past medical history significant for lymphedema, congestive heart failure, hypertension, GERD, chronic pain, morbid obesity, cellulitis, sleep apnea, and multiple other comorbidities who presented to the emergency department with worsening redness, swelling and weeping to the left lower extremity. ROS + fever and chills. 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 Patient was last admitted here in 03/2025 for LE cellulitis and lymphedema and had been recommended to start chronic suppression given risk of recurrence. She elected for the pill in pocket approach. She noticed the onset of erythema 4 days [employer] and started Cefadroxil 1g BID as instructed in the past, however in spite of taking the abx for 3days, symptoms continued to progress. She is currently on Zosyn and vancomycin. Blood culture returned positive for staphylococcus species pending further identification. LE edema is unchanged. She is seen in the ICU today and needed to be admitted here for sepsis needing pressor support. She is currently off pressors, alert and awake. Review of Systems General: Reports: 10 or more systems reviewed and unremarkable except in HPI and below Const: Denies: fever(s), chills or body aches Eyes: Denies: change in vision, blurry vision or photophobia ENMT: Reports: hoarseness; Denies: throat pain, enlarged tonsils, odynophagia or nasal congestion Card: Denies: chest pain, palpitations, irregular heart rhythm, edema, swelling of feet/ankles, lightheadedness, pre-syncope, dyspnea on exertion or orthopnea Resp: Denies: dyspnea, productive cough, non-productive cough, wheezing, stridor, pain on inspiration, change in phlegm color, hemoptysis or chest congestion GI: Denies: abdominal pain, nausea, vomiting, hematemesis, coffee ground emesis, dysphagia, heartburn, diarrhea, constipation, GI cramping, change in stool character, hematochezia or melena : Denies: flank pain, difficulty voiding, dysuria, urinary frequency, urinary urgency, urinary hesitancy or hematuria Musc: Denies: neck pain, back pain, extremity pain, joint swelling, joint warmth or deformity Neuro: Denies: headache(s), numbness in extremities, weakness in extremities, sensory changes, difficulty walking, frequent falls, dizziness, vertigo, behavioral changes, Slurred speech present or seizure-like activity Psych: Denies: anxiety, depression, suicidal ideation or homicidal ideation Endo: Denies: polyuria, polydipsia, tired all the time, cold intolerance or hot flashes Eulalio/Lymph: Denies: easy bruising or easy bleeding Medications/Allergies Home Medications ?Medication ?Instructions ?Recorded ?Confirmed ?Last Taken ?Type bumetanide 2 mg tablet 2 mg PO DAILY #120 tabs 05/17/24 07/05/25 07/12/24 Rx hydrocodone 10 mg-acetaminophen 1 tab PO QID PRN pain 06/28/24 07/05/25 07/04/25 History 325 mg tablet naloxone 4 mg/actuation nasal spray 4 mg intranasal Q2M PRN Opioid 06/28/24 07/05/25 Unknown History Overdose pregabalin 50 mg capsule 50 mg PO BID #60 caps 12/09/24 07/05/25 Unknown Rx cholecalciferol (vitamin D3) 1,250 50,000 unit PO .once weekly #12 02/23/25 07/05/25 Unknown Rx mcg (50,000 unit) capsule caps cefadroxil 500 mg capsule 1,000 mg (2 x 500 mg) PO Q12H PRN 03/16/25 07/05/25 Unknown Rx cellulitis 7 days #28 caps albuterol sulfate 90 mcg/actuation 2 puff inhalation Q4H PRN 07/05/25 07/05/25 Unknown History aerosol inhaler (Ventolin HFA) Shortness Of Breath Or Wheezing budesonide-formoterol HFA 160 2 puff inhalation BID 07/05/25 07/05/25 07/04/25 History mcg-4.5 mcg/actuation aerosol inhaler (Breyna) losartan 100 mg tablet 100 mg PO DAILY 07/05/25 07/05/25 07/04/25 History ondansetron HCl 4 mg tablet 4 mg PO Q8H PRN Nausea And Vomiting 07/05/25 07/05/25 Unknown History pantoprazole 40 mg tablet,delayed 40 mg PO BID 07/05/25 07/05/25 Unknown History release solifenacin 10 mg tablet 10 mg PO DAILY 07/05/25 07/05/25 07/04/25 History tizanidine 4 mg tablet 4 mg PO TID PRN muscle spasms 07/05/25 07/05/25 07/04/25 History tramadol 100 mg tablet,extended 100 mg PO DAILY 07/05/25 07/05/25 Unknown History release 24 hr trazodone 100 mg tablet 100 mg PO BEDTIME 07/05/25 07/05/25 07/04/25 History Allergies Allergy/AdvReac Type Severity Reaction Status Date / Time red dye Allergy Intermediate rash Verified 06/08/25 09:49 amoxicillin (From Augmentin) Allergy HIVES AND Verified 06/08/25 09:49 ITCHING clavulanic acid (From Allergy HIVES AND Verified 06/08/25 09:49 Augmentin) ITCHING meperidine (From Demerol) Allergy HIVES, Verified 06/08/25 09:49 ITCHING AND SHORTNESS OF BREATH Current Medications Generic Name Dose Route Start Last Admin Trade Name Freq PRN Reason Stop Dose Admin Acetaminophen 650 mg 07/05/25 01:34 07/06/25 17:39 Acetaminophen 325 Mg Tablet PO 650 mg Q6H PRN Administration Mild/Mod Pain Or Temp >/= 101 Hydrocodone Bitart/Acetaminophen 1 tab 07/07/25 14:04 07/07/25 14:21 Hydrocodone-Acetaminophen 5-325 Mg Tablet PO 1 tab Q4H PRN Administration MODERATE PAIN Amiodarone HCl 400 mg 07/06/25 16:00 07/07/25 04:28 Amiodarone 200 Mg Tablet PO 400 mg Q12H MONAE Administration Aspirin 81 mg 07/06/25 15:55 07/07/25 08:53 Aspirin 81 Mg Ec Tablet PO 81 mg DAILY MONAE Administration Docusate Sodium 100 mg 07/05/25 09:00 07/07/25 08:54 Docusate Sodium 100 Mg Capsule PO Not Given BID MONAE Furosemide 40 mg 07/07/25 13:45 07/07/25 14:22 Furosemide 10 Mg/Ml Sdv 4ml IVP 40 mg Q12H MONAE Administration Heparin Sodium (Porcine) 5,000 unit 07/05/25 01:45 07/07/25 13:20 Heparin 5,000 Unit/Ml Inj 1 Ml SUBCUT 5,000 unit Q12H MONAE Administration Albumin Human 25 g in 100 mls @ 60 mls/hr 07/05/25 17:45 07/07/25 10:40 Albumin IV 60 mls/hr Q8H MONAE Administration Linezolid 600 mg in 300 mls @ 300 mls/hr 07/07/25 14:00 07/07/25 14:21 Zyvox Premix IV 300 mls/hr Q12H MONAE Administration Protocol Lanolin 1 applic 07/07/25 10:06 07/07/25 10:40 Lanolin Oint 7 Gm TOPICAL 1 applic PRN PRN Administration DRYNESS Nystatin 1 applic 07/06/25 18:00 07/07/25 08:54 Nystatin Powder 15 Gm Btl TOPICAL 1 applic BID MONAE Administration Ondansetron HCl 4 mg 07/04/25 23:50 07/07/25 05:03 Ondansetron 2 Mg/Ml Sdv 2 Ml IVP 4 mg Q6H PRN Administration NAUSEA AND VOMITING Pantoprazole Sodium 40 mg 07/05/25 09:00 07/07/25 08:[address] 40 Mg Tablet PO 40 mg DAILY MONAE Administration Pregabalin 25 mg 07/05/25 18:00 07/07/25 08:54 Pregabalin 25 Mg Capsule PO 25 mg BID MONAE Administration Trazodone HCl 100 mg 07/05/25 21:00 07/06/25 21:10 Trazodone 100 Mg Tablet PO 100 mg BEDTIME MONAE Administration PFSH Acute PFSH: Medical History (Updated 07/08/25 @ 12:10 by Jillian Goodson MD) Lymphedema Hypertension Morbid obesity Colon polyps Morbid obesity Venous stasis dermatitis Anasarca Cellulitis of left lower leg Acute diastolic heart failure Cellulitis Bilateral lower leg cellulitis Obesity hypoventilation syndrome Accelerated hypertension Smokes cigarettes Lower limb ulcer, ankle Lymphedema associated with obesity Polycystic ovarian syndrome Longstanding diagnosis, dating back to 2003. Has been on and off treatment for many years. LAURA (obstructive sleep apnea) Osteoarthritis of knees, bilateral Chronic low back pain with left-sided sciatica > 50% of 45 min visit counseling patient regarding weight. Encounter for long-term opiate analgesic use Current every day smoker Degeneration of intervertebral disc of cervical spine without disc herniation Arthralgia of cervical spine Surgical History S/P total abdominal hysterectomy (08/01/20) With RSO. [place] [facility] [place]. Path showed polyp with complex hyperplasia with atypia Status post hysteroscopy (~05/09/20) Hysteroscopy with dilation and curettage with Dr. Paul Deshpande at [facility] History of laparoscopic cholecystectomy (~1993) History of D&C (~09/2003) History of laparoscopy (09/21/18) Dx: Small bowel obstruction. Lysis of adhesions. [place] [facility] History of left salpingo-oophorectomy (01/15/06) Laparotomy. [place]. Lovelace [place] [facility] 10 cm left adnexal cystic mass. History of bariatric surgery (~2016) Laparoscopic gastric sleeve. H/O bariatric surgery (09/14/12) Laparoscopic band. H/O section 12/21/1991, 12/14/1993, 04/17/1995. Family History Father Diabetes Hypertension Social History Smoking and tobacco/nicotine status: former use of tobacco/nicotine (quit 15 months ago) Alcohol intake: never Substance/Drug Use: never Vitals/I&O/Wt Last Vital Signs Temp 98.4 F 07/07/25 09:15 Pulse 107 H 07/07/25 14:30 Resp 27 H 07/07/25 14:30 BP 134/82 07/07/25 14:30 Pulse Ox 94 07/07/25 14:30 O2 Del Method Nasal Cannula 07/07/25 08:09 O2 Flow Rate 4 07/07/25 08:09 07/07/25 07/07/25 07/07/25 06:59 14:59 22:59 Intake Total 450 / 2131.866 120 / 120 Output Total 1650 / 3800 Balance -1200 / -1668.134 120 / 120 Physical Exam Narrative: General: No acute distress, AO x3 HEENT: PERRLA, pupils bilaterally equal and reactive, pallors not present Chest: Normal vesicular breath sounds, no added sounds, equal good air entry bilaterally CVS: S1-S2 regular, no murmurs, no tachycardia, no gallops, no rubs Abdomen: Soft, nontender, no organomegaly, bowel sounds present Neuro: No focal deficits, no facial deformity, AO x3, power 5/5 in all limbs Extremities: significant LLE cellulitis extending to knee, with changes of stasis dermatitis B/L. Massive lymphedema B/L Urinary Catheter Management: Brumfield: Cath Placed During This Visit: yes Reason for Continuing Indwelling Catheter: Accurate Measurement of Urinary Output in Critically Ill Patients Urinary Catheter Date of Insertion: 07/04/25 Urinary Catheter Time of Insertion: 21:30 Data 07/08/25 05:26 07/08/25 05:26 Micro: Microbiology 07/05/25 18:38 Gram Stain - Final Leg - #1 Wound Culture - Preliminary 07/06/25 09:02 Urine Culture - Preliminary Urine Catheterized 07/06/25 08:51 Blood Culture - Preliminary Blood NEGATIVE TO DATE 07/06/25 08:53 Blood Culture - Preliminary Blood NEGATIVE TO DATE NAME: Ziyad Felipe ACC #: [id number] LOC: [facility] #: [id number] AGE/SX: 50/F ROOM: [facility] RE07/04/[address]: Tommy Justin MD : 1975 BED: 1 DIS: FAX #: STATUS: ADM IN TLOC: Spec #: [id number] Tahir: 07/04/25 Status: RES Req #: [id number] Recd: 07/04/[address]: Michele Stanford DO Src: Blood SpDesc: Ordered: Bcult Blood Culture Preliminary (changed) 07/06/25-853 1 OF 4 BOTTLES POSITIVE DIRECT GRAM STAIN: GRAM POSITIVE COCCI IN PAIRS AND TETRADS IDENTIFICATION BY DIRECT PCR Detection of mecA indicates presence of Methicillin Resistant Staphylococcus spp. RESULTS TO FOLLOW Organism 1 Staphylococcus species Growth 1 BOTTLE Gram Stain Charge Charge for Gram Stain CRITICAL RESULT YES/NO: YES CRITICAL CALLED BY: LUKAS TO AND READ BACK BY: MICHAEL DATE: 07/05/25 TIME: 2100 Blood Culture Preliminary (changed) 07/05/25-2101 1 OF 4 BOTTLES POSITIVE DIRECT GRAM STAIN: GRAM POSITIVE COCCI IN PAIRS AND TETRADS IDENTIFICATION BY DIRECT PCR RESULTS TO FOLLOW Organism 1 Staphylococcus species Growth 1 BOTTLE Gram Stain Charge Charge for Gram Stain CRITICAL RESULT YES/NO: YES CRITICAL CALLED BY: LUKAS TO AND READ BACK BY: MICHAEL DATE: 07/05/25 TIME: 2100 Blood Culture Preliminary (changed) 07/05/25 NEGATIVE TO DATE Blood Culture Preliminary (changed) 07/04/25-1954 SPECIMEN COLLECTED A&P Assessment and plan 1. Cellulitis: 2. Sepsis: 3. Coag negative Staphylococcus bacteremia: 4. Lymphedema: Plan: 50 year old lady with massive lymphedema, chronic stasis dermatitis admitted with LLE cellulitis and sepsis She is currently on treatment with meropenem and linezolid which can continue for now for treatment Blood cx from 07/04 reported positive for staph spp 1/4 bottles. Per discussion with [facility], PCR analysis reports this to be non aureus, epidermidis or lugdienensis. Likely that this represents CoNS contamination. Repeat Blood cx from 07/06 thus far negtaive will follow for improvement PDMP PDMP Reviewed: Not Reviewed Coding Level of Care Code Acute Code for g Fwd Diagnoses Cellulitis L03.90 Sepsis A41.9 Coag negative Staphylococcus bacteremia R78.81; B95.7 Lymphedema I89.0
[2025-07-08] VITALS (10 sets, daily range): BP systolic 132–164; BP diastolic 66–94; PULSE 71–122; RESP 16–20; TEMP 36.7–37.2; O2SAT 97–100
[2025-07-08] MEDS: HYDROcodone-acetaminophen 5-325 mg Tablet 1 TAB PO ×5 (00:01→23:27)
[2025-07-08] MEDS: linezolid premix 600 MG/300 ML PREMIX 300 MG IV ×2 (02:24→13:23)
[2025-07-08] MEDS: FUROsemide 10 mg/mL SDV 4mL 40 MG IVP ×2 (02:24→13:23)
[2025-07-08] MEDS: heparin 5,000 unit/mL INJ 1 mL 5000 UNIT SUBCUT ×2 (02:24→13:23)
[2025-07-08] MEDS: meropenem 1,000 mg SDV 1000 MG IVP ×3 (04:56→20:30)
[2025-07-08 05:46] LABS: Hematocrit 28.7 % (36-47); Hemoglobin 8.90 g/dL (11.27-16.99); Mean Corpuscular HGB Conc 31.0 g/dL (30-55); Mean Corpuscular Hemoglobin 26.3 pg (27-33); Mean Corpuscular Volume 84.9 fl (85-98); Nucleated Red Blood Cells % 0 %; Platelet Count 125 10^3/cmm (157-399); Red Blood Count 3.38 10^6/uL (3.85-5.65); White Blood Count 7.79 10^3/uL (3.29-11.43)
[2025-07-08 06:10] LABS: Alanine Aminotransferase 28 U/L (0-33); Albumin Level 3.1 g/dL (3.5-5.2); Alkaline Phosphatase 123 U/L (35-105); Anion Gap 14.6 (5-19); Aspartate Amino Transferase 27 U/L (0-32); Blood Urea Nitrogen 21 mg/dL (6-20); Calcium 8.2 mg/dL (8.5-10.5); Carbon Dioxide 26 mmol/L (22-29); Chloride 105 mmol/L (98-107); Creatinine Clr Calc Pharmacy 236.7281; Globulin 3.8 g/dL (1.3-4.6); Glucose 109 mg/dL (65-115); Magnesium 2.0 mg/dL (1.7-2.3); Osmolality Calculated 298 mOsm/kg (285-295); Potassium 3.6 mmol/L (3.5-5.1); Sodium 142 mmol/L (136-145); Total Protein 6.9 g/dL (6.6-8.7)
[2025-07-08 06:11] LABS: Lactate (Lactic Acid level) 0.9 mmol/L (0.5-2.2)
[2025-07-08 06:29] LABS: NT Pro B Type Natriuretic Pept 4491 pg/mL (0-125); Procalcitonin 7.74 ng/mL (0-0.5)
--- NOTE | 2025-07-08 07:35 | P.PN_ITS ---
Subjective 2 Subjective: cellulitis remaining stable ID progress note: Interval development of herpes stomatitis today Blood isolate is identified as staph auricularis. Left lower extremity cellulitis appears to be mildly improved to stable today. Medications: Reviewed: Yes Vitals/I&O/Wt Last Vital Signs Temp 98.1 F 07/08/25 07:03 Pulse 103 H 07/08/25 07:03 Resp 19 H 07/08/25 07:03 BP 148/85 07/08/25 07:03 Pulse Ox 98 07/08/25 07:03 O2 Del Method Nasal Cannula 07/08/25 07:03 O2 Flow Rate 4 07/07/25 20:00 07/07/25 07/08/25 07/08/25 22:59 06:59 14:59 Intake Total 1090 / 1210 940 / 2150 Output Total 2600 / 2600 Balance -1510 / -1390 940 / -450 Weight last 48 hrs Weight 213.642 kg Physical Exam 2 Narrative: General: No acute distress, AO x3 HEENT: PERRLA, pupils bilaterally equal and reactive, pallors not present Chest: Normal vesicular breath sounds, no added sounds, equal good air entry bilaterally CVS: S1-S2 regular, no murmurs, no tachycardia, no gallops, no rubs Abdomen: Soft, nontender, no organomegaly, bowel sounds present Neuro: No focal deficits, no facial deformity, AO x3, power 5/5 in all limbs Urinary Catheter Management: Brumfield: Cath Placed During This Visit: yes Reason for Continuing Indwelling Catheter: Acute Urinary Retention or Obstruction Urinary Catheter Date of Insertion: 07/04/25 Urinary Catheter Time of Insertion: 21:30 Data 07/08/25 05:26 07/08/25 05:26 Other Labs: NAME: Ziyad Felipe LOC: [facility] #: [id number] AGE/SX: 50/F ROOM: 264 R E07/04/[address]: Tommy Justin MD : 1975 BED: 1 D IS: FAX #: STATUS: ADM IN TLOC: Spec #: [id number] Tahir: 07/04/25 Status: RES Req #: [id number] Recd: 07/04/[address]: Michele Stanford DO Src: Blood SpDesc: Ordered: Bcult Procedure Result Verified Site Blood Culture Preliminary 07/08/25 1 OF 4 BOTTLES POSITIVE DIRECT GRAM STAIN: GRAM POSITIVE COCCI IN PAIRS AND TETRADS IDENTIFICATION BY DIRECT PCR Detection of mecA indicates presence of Methicillin Resistant Staphylococcus spp. Organism 1 STAPHYLOCOCCUS AURICULARIS Growth 1 BOTTLE Gram Stain Charge Charge for Gram Stain CRITICAL RESULT YES/NO: YES CRITICAL CALLED BY: LUKAS TO AND READ BACK BY: MICHAEL DATE: 07/05/25 TIME: 2100 MARY Brenner RX --------- ------ * Ciprofloxacin <=1 S * Clindamycin >4 R * Erythromycin >4 R * Gentamicin >8 R * Levofloxacin <=1 S * Linezolid >4 R * Moxifloxacin <=0.5 S * Oxacillin >2 R * Penicillin >8 R * Rifampin <=1 S * Tetracycline <=4 S * Trimethoprim/Sulfamethoxazole >2/38 R Vancomycin 1 S Daptomycin <=0.5 S Blood Culture Preliminary (changed) 07/06/25 1 OF 4 BOTTLES POSITIVE DIRECT GRAM STAIN: GRAM POSITIVE COCCI IN PAIRS AND TETRADS IDENTIFICATION BY DIRECT PCR Detection of mecA indicates presence of Methicillin Resistant Staphylococcus spp. RESULTS TO FOLLOW Organism 1 Staphylococcus species Growth 1 BOTTLE Gram Stain Charge Charge for Gram Stain CRITICAL RESULT YES/NO: YES CRITICAL CALLED BY: LUKAS TO AND READ BACK BY: MICHAEL DATE: 07/05/25 TIME: 2100 Blood Culture Preliminary (changed) 07/05/25-2101 1 OF 4 BOTTLES POSITIVE DIRECT GRAM STAIN: GRAM POSITIVE COCCI IN PAIRS AND TETRADS IDENTIFICATION BY DIRECT PCR RESULTS TO FOLLOW Organism 1 Staphylococcus species Growth 1 BOTTLE Gram Stain Charge Charge for Gram Stain CRITICAL RESULT YES/NO: YES CRITICAL CALLED BY: LUKAS TO AND READ BACK BY: MICHAEL DATE: 07/05/25 TIME: 2100 Blood Culture Preliminary (changed) 07/05/25-1948 NEGATIVE TO DATE Blood Culture Preliminary (changed) 07/04/25-1954 SPECIMEN COLLECTED Micro: Microbiology 07/05/25 18:38 Gram Stain - Final Leg - #1 Wound Culture - Preliminary 07/06/25 09:02 Urine Culture - Preliminary Urine Catheterized 07/06/25 08:51 Blood Culture - Preliminary Blood NEGATIVE TO DATE 07/06/25 08:53 Blood Culture - Preliminary Blood NEGATIVE TO DATE A&P Assessment and plan 1. Herpes stomatitis: 2. Cellulitis: 3. Sepsis: 4. Coag negative Staphylococcus bacteremia: 5. Lymphedema: Plan: 50 year old lady with massive lymphedema, chronic stasis dermatitis admitted with LLE cellulitis and sepsis She is currently on treatment with meropenem and linezolid which can continue for now for treatment Blood cx from 07/04 reported positive for staph spp 1/4 bottles. Per discussion with [facility], PCR analysis reports this to be non aureus, epidermidis or lugdienensis. Likely that this represents CoNS contamination. Repeat Blood cx from 07/06 thus far negtaive July 09, 2025 Lower extremity cellulitis appears slightly improved compared to yesterday. Continue current antibiotics meropenem and linezolid. Wound culture gram- negative rods. Prior cultures from March 2025 with Pseudomonas aeruginosa and Serratia. Once improving and ready for discharge, will likely transition to oral ciprofloxacin and cefdinir. Blood culture reported as positive for Staphylococcus auricularis 1 out of 4 cultures. This likely represent contamination. Urine culture showing yeast species. Will order fluconazole for vulvovaginal candidiasis and crural candidiasis. Developed herpes stomatitis with outbreak along upper and lower lip. Patient additionally reports ulceration in the mouth leading to painful swallowing. Start Valtrex 1 g twice daily. Add Magic mouthwash and Biotene spray for symptomatic relief. PDMP PDMP Reviewed: Not Reviewed Attestations 2 Medical Necessity Statement*: Per admitting Coding Level of Care Code Acute Code for Chg Fwd Diagnoses Herpes stomatitis B00.2 Cellulitis L03.116 Laterality: left Site of cellulitis: extremity Site of cellulitis of extremity: lower extremity Sepsis A41.9; R65.21; N17.9 Acute renal failure type: unspecified Sepsis acute organ dysfunction status: with acute organ dysfunction Sepsis type: sepsis due to unspecified organism Severe sepsis acute organ dysfunction type: acute renal failure Severe sepsis shock status: with septic shock Coag negative Staphylococcus bacteremia R78.81; B95.7 Lymphedema I89.0
[2025-07-08] MEDS: saliva stimulant spray 30 mL Btl 1 SPRAY MUCOUS MEM ×3 (08:41→13:20)
--- NOTE | 2025-07-08 11:01 | P.PN_ITS ---
Subjective 2 Subjective: No acute events overnight Vitals/I&O/Wt Last Vital Signs Temp 98.4 F 07/08/25 10:39 Pulse 106 H 07/08/25 10:39 Resp 20 H 07/08/25 10:39 BP 146/77 07/08/25 10:39 Pulse Ox 97 07/08/25 10:39 O2 Del Method Nasal Cannula 07/08/25 10:39 O2 Flow Rate 4 07/08/25 08:47 07/07/25 07/08/25 07/08/25 22:59 06:59 14:59 Intake Total 1090 / 1210 940 / 2150 240 / 240 Output Total 2600 / 2600 Balance -1510 / -1390 940 / -450 240 / 240 Weight last 48 hrs Weight 471 lb Physical Exam 2 Narrative: Chest: Unlabored breathing room air. No lymphadenopathy. Heart: Regular rate and rhythm. Abdomen: Soft, nontender, nondistended. No masses or lymphadenopathy. Bilateral lower extremity cellulitis Urinary Catheter Management: Brumfield: Cath Placed During This Visit: yes Reason for Continuing Indwelling Catheter: Acute Urinary Retention or Obstruction Urinary Catheter Date of Insertion: 07/04/25 Urinary Catheter Time of Insertion: 21:30 Data 07/09/25 04:30 07/09/25 04:30 Micro: Microbiology 07/04/25 19:46 Blood Culture - Preliminary Blood Staphylococcus Auricularis 07/05/25 18:38 Gram Stain - Final Leg - #1 Wound Culture - Preliminary 07/06/25 09:02 Urine Culture - Preliminary Urine Catheterized 07/06/25 08:51 Blood Culture - Preliminary Blood NEGATIVE TO DATE 07/06/25 08:53 Blood Culture - Preliminary Blood NEGATIVE TO DATE A&P Assessment and plan 1. Cellulitis: Plan: 50-year-old female who presented with bilateral lower extremity cellulitis. Continue antibiotics. No surgical indication PDMP PDMP Reviewed: Not Reviewed Attestations 2 Medical Necessity Statement*: N/A Coding Level of Care Code 59597 Diagnoses Cellulitis L03.90
--- NOTE | 2025-07-08 11:40 | PC.SOCIAL ---
IMM Update pg 2 of IMM Updated and reviewed w/ patient. copy provided and copy dated, initialed and placed in chart.
--- NOTE | 2025-07-08 20:49 | P.PN_ITS ---
Subjective 2 Subjective: Left leg feels edematous and has been somewhat difficult to elevate. Some regression of erythema on the left thigh. Lower leg and distal medial left thigh with persistent changes with cellulitis, edema, blisters superimposed on chronic cornified tissue with chronic severe lymphedema. Vitals/I&O/Wt Last Vital Signs Temp 98.1 F 07/08/25 15:24 Pulse 75 07/08/25 15:24 Resp 18 07/08/25 15:24 BP 164/84 07/08/25 15:24 Pulse Ox 97 07/08/25 15:24 O2 Del Method Nasal Cannula 07/08/25 15:24 O2 Flow Rate 4 07/08/25 08:47 07/08/25 07/08/25 07/08/25 06:59 14:59 22:59 Intake Total 940 / 2150 780 / 780 120 / 900 Output Total 850 / 850 2100 / 2950 Balance 940 / -450 -70 / -70 -1980 / -0 Weight last 48 hrs Weight 213.642 kg Physical Exam 2 Const: COMMON NORMALS: patient oriented x3 and alert GENERAL APPEARANCE: c ooperative NUTRITIONAL APPEARANCE: obese morbidly obese O RIENTATION/CONSCIOUSNESS: Yes awake HENMT: COMMON NORMALS: oropharynx normal Neck/C-Spine: COMMON NORMALS: no JVD Resp: COMMON NORMALS: normal respiratory effort and clear to auscultation bilaterally AUSCULTATION: clear to auscultation bilaterally Cardio: COMMON NORMALS: no JVD, regular rhythm, S1 normal heart sound present, S2 normal heart sound present and No murmurs present (Cardio) RHYTHM: regular rhythm HEART SOUNDS: S1 normal heart sound present and S2 normal heart sound present GI: COMMON NORMALS: Normal to inspection, nondistended, normoactive bowel sounds present, Soft to palpation and non-tender PALPATION: Yes Soft to palpation Extremity: NARRATIVE EXTREMITY EXAM: Very severe lymphedema left lower extremity with chronic cornified tissue, multiple large folds Neuro: COMMON NORMALS: patient oriented x3 and moves all extremities S ENSORIUM/ORIENTATION: Yes alert Urinary Catheter Management: Brumfield: Cath Placed During This Visit: yes Reason for Continuing Indwelling Catheter: Acute Urinary Retention or Obstruction Urinary Catheter Date of Insertion: 07/04/25 Urinary Catheter Time of Insertion: 21:30 Data 07/08/25 05:26 07/08/25 05:26 Micro: Microbiology 07/05/25 18:38 Gram Stain - Final Leg - #1 Wound Culture - Final 07/06/25 09:02 Urine Culture - Preliminary Urine Catheterized Yeast species 07/04/25 19:46 Blood Culture - Preliminary Blood Staphylococcus Auricularis A&P Assessment and plan 1. Sepsis: 2. Cellulitis: 3. Cystitis: 4. Rhabdomyolysis: 5. Atrial fibrillation with rapid ventricular response: 6. Acute kidney injury: 7. Lymphedema: 8. Open wound of left lower extremity with complication: 9. Hypertension: 10. Anxiety and depression: 11. Morbid obesity: 12. Septic shock: Plan: Sepsis with septic shock sepsis and septic shock resolved. Continues with significant cellulitis of left lower extremity. Some aggression of erythema on the thigh. Persistent significant cellulitis left lower leg with severe lymphedema. Blisters and weeping. Discussed with nursing staff left leg is elevated more at the knee, further attempts elevate left lower leg to keep at or above heart level. Discussed with surgery, at present time low suspicion of necrotizing fasciitis, but continue to monitor. -Cellulitis of bilateral extremities, concern for deep tissue infection -Urinary tract infection: Noted yeast species. Appreciate ID recommendation. Continue: Meropenem, linezolid. Monitor for risk of cytopenias, seizure. -The patient declined CT scan of bilateral lower extremity to evaluate for underlying abscess, deep tissue infection Staphylococcal bacteremia: Staph auricularis noted. Possible contaminant. Versus bacteremia secondary to extensive cellulitis. Continue IV antibiotic. Urinary tract infection: Yeast species and urine culture noted. Possible contamination versus UTI. Appreciate ID recommendation. Cellulitis, deep tissue injury bilateral extremities. Per discussion with general surgery no opportunity for debridement at current time. - Continue antibiotics as above Atrial fibrillation with rapid ventricular response - Continue amiodarone drip transition to p.o. amiodarone - [id number] score 2 - continue aspirin Bilateral lower extremity edema, fluid overload. Chronic lymphedema. - Lasix 40 IV twice daily. Elevate extremity. Lactic acidosis: Resolved Rhabdomyolysis - Addressed with IV hydration, will hold off on further IV hydration given concerns for fluid overload Continue to monitor Acute renal failure, resolved - Renal ultrasound reviewed NSTEMI - No chest pain complaints - Serial EKGs, serial troponins, telemetry monitoring Hypomagnesemia monitor Protonix for GI prophylaxis Heparin for DVT prophylaxis Full code PDMP PDMP Reviewed: Not Reviewed Attestations 2 Medical Necessity Statement*: Continue admission for management of extensive severe cellulitis of lower extremity superimposed on severe chronic lymphedema, possible gram-positive bacteremia. and High MDM includes amount and/or complexity of data reviewed/ordered [ resulted lab(s)/test(s), ordered lab(s)/test(s) and other healthcare professional discussion] and described risk of complication, morbidity or mortality of management as documented Diagnoses Sepsis A41.9 Cellulitis L03.90 Cystitis N30.90 Rhabdomyolysis M62.82 Atrial fibrillation with rapid ventricular response I48.91 Acute kidney injury N17.9 Lymphedema I89.0 Open wound of left lower extremity with complication S81.802A Hypertension I10 Anxiety and depression F41.9; F32.A Morbid obesity E66.01 Septic shock A41.9; R65.21
[2025-07-09] VITALS (11 sets, daily range): BP systolic 133–159; BP diastolic 76–92; PULSE 72–99; RESP 14–20; TEMP 36.6–36.8; O2SAT 93–99
[2025-07-09] MEDS: linezolid premix 600 MG/300 ML PREMIX 300 MG IV ×2 (02:04→13:01)
[2025-07-09] MEDS: heparin 5,000 unit/mL INJ 1 mL 5000 UNIT SUBCUT ×2 (02:04→13:01)
[2025-07-09] MEDS: FUROsemide 10 mg/mL SDV 4mL 40 MG IVP (02:04)
[2025-07-09] MEDS: meropenem 1,000 mg SDV 1000 MG IVP ×3 (04:13→20:14)
[2025-07-09 05:35] LABS: Hematocrit 30.1 % (36-47); Hemoglobin 9.30 g/dL (11.27-16.99); Mean Corpuscular HGB Conc 30.9 g/dL (30-55); Mean Corpuscular Hemoglobin 26.4 pg (27-33); Mean Corpuscular Volume 85.5 fl (85-98); Platelet Count 184 10^3/cmm (157-399); Red Blood Count 3.52 10^6/uL (3.85-5.65); White Blood Count 7.91 10^3/uL (3.29-11.43)
[2025-07-09 05:51] LABS: Alanine Aminotransferase 26 U/L (0-33); Albumin Level 3.0 g/dL (3.5-5.2); Alkaline Phosphatase 160 U/L (35-105); Anion Gap 12.4 (5-19); Aspartate Amino Transferase 25 U/L (0-32); Blood Urea Nitrogen 15 mg/dL (6-20); Calcium 8.3 mg/dL (8.5-10.5); Carbon Dioxide 29 mmol/L (22-29); Chloride 101 mmol/L (98-107); Creatinine Clr Calc Pharmacy 265.0704; Globulin 3.9 g/dL (1.3-4.6); Glucose 122 mg/dL (65-115); Osmolality Calculated 290 mOsm/kg (285-295); Potassium 3.4 mmol/L (3.5-5.1); Sodium 139 mmol/L (136-145); Total Protein 6.9 g/dL (6.6-8.7)
[2025-07-09 06:29] LABS: Absolute Segmented Neutrophil 5.5 10/cmm (1.6-7.1); Atypical Lymphs 1.0 % (0-5); Band Neutrophils Absolute 0.0 10^3/cmm (0.0-1.2); Slide Review Slide Review Perform; Total Cells Counted 100 (0-100)
[2025-07-09] MEDS: HYDROcodone-acetaminophen 5-325 mg Tablet 1 TAB PO (09:42)
[2025-07-09] MEDS: ondansetron 2 mg/ML SDV 2 mL 4 MG IVP (09:50)
[2025-07-09] MEDS: oxyCODONE 5 mg IR Tab/Cap PO ×2 (11:13→20:25)
[2025-07-09] MEDS: metoclopramide 5 mg/mL SDV 2 mL IVP (11:13)
[2025-07-09] MEDS: lidocaine 2% viscous 15 ML, diphenhydrAMINE oral liq 37.5 MG, aluminum-mag hydrox-simet... MUCOUS MEM (11:15)
--- NOTE | 2025-07-09 13:17 | P.PN_ITS ---
Subjective 2 Subjective: No acute events overnight Vitals/I&O/Wt Last Vital Signs Temp 97.8 F 07/09/25 11:33 Pulse 94 07/09/25 11:33 Resp 14 07/09/25 11:33 BP 150/90 07/09/25 11:33 Pulse Ox 93 07/09/25 11:33 O2 Del Method Nasal Cannula 07/09/25 11:33 O2 Flow Rate 3 07/09/25 09:49 07/08/25 07/09/25 07/09/25 22:59 06:59 14:59 Intake Total 360 / 1140 600 / 1740 360 / 360 Output Total 2100 / 2950 3000 / 5950 Balance -1740 / -1810 -2400 / -4210 360 / 360 Weight last 48 hrs Weight 469 lb Weight 471 lb Physical Exam 2 Narrative: Chest: Unlabored breathing room air. No lymphadenopathy. Heart: Regular rate and rhythm. Abdomen: Soft, nontender, nondistended. No masses or lymphadenopathy. Bilateral lower extremity cellulitis Urinary Catheter Management: Brumfield: Cath Placed During This Visit: yes Reason for Continuing Indwelling Catheter: Acute Urinary Retention or Obstruction Urinary Catheter Date of Insertion: 07/04/25 Urinary Catheter Time of Insertion: 21:30 Data 07/09/25 04:30 07/09/25 04:30 Micro: Microbiology 07/04/25 19:46 Blood Culture - Final Blood Staphylococcus Auricularis 07/05/25 18:38 Gram Stain - Final Leg - #1 Wound Culture - Final 07/06/25 09:02 Urine Culture - Preliminary Urine Catheterized Yeast species A&P Assessment and plan 1. Cellulitis: Plan: 50-year-old female who presented with bilateral lower extremity cellulitis. No indications for surgery. Continue antibiotics. Care per hospitalist PDMP PDMP Reviewed: Not Reviewed Attestations 2 Medical Necessity Statement*: N/A Coding Level of Care Code 63004 Diagnoses Cellulitis L03.90
[2025-07-09] MEDS: bumetanide 0.25 mg/mL SDV 4 mL 1 MG IVP (16:40)
--- NOTE | 2025-07-09 19:10 | P.PN_ITS ---
Vitals/I&O/Wt Last Vital Signs Temp 98.0 F 07/09/25 16:00 Pulse 72 07/09/25 16:00 Resp 16 07/09/25 16:00 BP 154/84 07/09/25 16:00 Pulse Ox 98 07/09/25 16:00 O2 Del Method Nasal Cannula 07/09/25 16:00 O2 Flow Rate 3 07/09/25 09:49 07/09/25 07/09/25 07/09/25 06:59 14:59 22:59 Intake Total 600 / 1740 900 / 900 Output Total 3000 / 5950 830 / 830 Balance -2400 / -4210 900 / 900 -830 / 70 Weight last 48 hrs Weight 212.735 kg Weight 213.642 kg Physical Exam 2 Const: COMMON NORMALS: no acute distress and patient oriented x3 Resp: COMMON NORMALS: normal respiratory effort, No retractions, No use of accessory muscles and clear to auscultation bilaterally AUSCULTATION: clear to auscultation bilaterally Cardio: COMMON NORMALS: regular rate, regular rhythm, S1 normal heart sound present and S2 normal heart sound present RATE: regular rate RHYTHM: r egular rhythm HEART SOUNDS: S1 normal heart sound present and S2 normal heart sound present GI: COMMON NORMALS: Normal to inspection, nondistended, normoactive bowel sounds present and non-tender Extremity: NARRATIVE EXTREMITY EXAM: Right lower extremity, erythema, swelling, tenderness, clinically improving, - 2+ pitting edema Neuro: COMMON NORMALS: patient oriented x3 Psych: COMMON NORMALS: mental status grossly normal Urinary Catheter Management: Brum[place]: Cath Placed During This Visit: yes Reason for Continuing Indwelling Catheter: Acute Urinary Retention or Obstruction Urinary Catheter Date of Insertion: 07/04/25 Urinary Catheter Time of Insertion: 21:30 Data 07/09/25 04:30 07/09/25 04:30 Micro: Microbiology 07/04/25 19:46 Blood Culture - Final Blood Staphylococcus Auricularis 07/05/25 18:38 Gram Stain - Final Leg - #1 Wound Culture - Final A&P Assessment and plan 1. Sepsis: 2. Cellulitis: 3. Cystitis: 4. Rhabdomyolysis: 5. Atrial fibrillation with rapid ventricular response: 6. Acute kidney injury: 7. Lymphedema: 8. Open wound of left lower extremity with complication: 9. Hypertension: 10. Anxiety and depression: 11. Morbid obesity: 12. Septic shock: Plan: Sepsis with septic shock - Source -Cellulitis of bilateral extremities, concern for deep tissue infection -Urinary tract infection Plan -is on 2 of levophed -Blood cultures, staph auricularis -Wound culture -Urine culture - Zyvox -Meropenem -The patient declined CT scan of bilateral lower extremity to evaluate for underlying abscess, deep tissue infection Bilateral extremity edema - Bumex 1 mg IV twice daily - -5 L so far Staphylococcal bacteremia -Follow identification - Continue IV antibiotics as above Urinary tract infection -Cannot do a CT scan abdomen pelvis given patient's BMI, and girth - Will order renal ultrasound, no acute findings - Continue antibiotics as above Cellulitis, deep tissue injury bilateral extremities - Continue antibiotics as above - General Surgery consulted for consideration of debridement, recommend medical management Atrial fibrillation with rapid ventricular response - Continue amiodarone drip transition to p.o. amiodarone - [id number] score 2 - continue aspirin Bilateral scrotal edema, fluid overload - Bumex Lactic acidosis -Secondary to septic shock as above Rhabdomyolysis - Addressed with IV hydration, will hold off on further IV hydration given concerns for fluid overload Continue to monitor Acute renal failure, improving - Secondary to sepsis, septic shock, rhabdomyolysis - Renal ultrasound - Monitor urine output, monitor creatinine NSTEMI - No chest pain complaints - Serial EKGs, serial troponins, telemetry monitoring Hypomagnesemia monitor Oral herpetic lesions, continue valacyclovir Protonix for GI prophylaxis Heparin for DVT prophylaxis Full code PDMP PDMP Reviewed: Not Reviewed Attestations 2 Medical Necessity Statement*: Patient requires hospitalization for cellulitis of bilateral extremity Diagnoses Sepsis A41.9 Cellulitis L03.90 Cystitis N30.90 Rhabdomyolysis M62.82 Atrial fibrillation with rapid ventricular response I48.91 Acute kidney injury N17.9 Lymphedema I89.0 Open wound of left lower extremity with complication S81.802A Hypertension I10 Anxiety and depression F41.9; F32.A Morbid obesity E66.01 Septic shock A41.9; R65.21
[2025-07-10] VITALS (11 sets, daily range): BP systolic 140–185; BP diastolic 74–88; PULSE 85–102; RESP 16–20; TEMP 36.6–36.9; O2SAT 92–99
[2025-07-10] MEDS: lidocaine 2% viscous 15 ML, diphenhydrAMINE oral liq 37.5 MG, aluminum-mag hydrox-simet... MUCOUS MEM (00:26)
[2025-07-10] MEDS: heparin 5,000 unit/mL INJ 1 mL 5000 UNIT SUBCUT ×2 (00:29→13:08)
[2025-07-10] MEDS: metoclopramide 5 mg/mL SDV 2 mL IVP (00:29)
[2025-07-10] MEDS: meropenem 1,000 mg SDV 1000 MG IVP ×3 (03:20→20:22)
[2025-07-10] MEDS: bumetanide 0.25 mg/mL SDV 4 mL 1 MG IVP ×2 (03:20→16:57)
[2025-07-10 03:50] LABS: C.Diff PCR (Lab) NEGATIVE (Negative)
[2025-07-10 05:05] LABS: Hematocrit 31.1 % (36-47); Hemoglobin 9.60 g/dL (11.27-16.99); Mean Corpuscular HGB Conc 30.9 g/dL (30-55); Mean Corpuscular Hemoglobin 26.2 pg (27-33); Mean Corpuscular Volume 85.0 fl (85-98); Platelet Count 253 10^3/cmm (157-399); Red Blood Count 3.66 10^6/uL (3.85-5.65); White Blood Count 8.38 10^3/uL (3.29-11.43)
[2025-07-10 05:24] LABS: Slide Review Slide Review Perform
[2025-07-10 05:27] LABS: Alanine Aminotransferase 24 U/L (0-33); Albumin Level 3.0 g/dL (3.5-5.2); Alkaline Phosphatase 118 U/L (35-105); Anion Gap 13.6 (5-19); Aspartate Amino Transferase 21 U/L (0-32); Blood Urea Nitrogen 17 mg/dL (6-20); Calcium 8.1 mg/dL (8.5-10.5); Carbon Dioxide 30 mmol/L (22-29); Chloride 103 mmol/L (98-107); Creatinine Clr Calc Pharmacy 265.0704; Globulin 3.8 g/dL (1.3-4.6); Glucose 100 mg/dL (65-115); Osmolality Calculated 298 mOsm/kg (285-295); Potassium 3.6 mmol/L (3.5-5.1); Sodium 143 mmol/L (136-145); Total Protein 6.8 g/dL (6.6-8.7)
[2025-07-10 06:24] LABS: Absolute Segmented Neutrophil 5.6 10/cmm (1.6-7.1); Atypical Lymphs 3.0 % (0-5); Band Neutrophils Absolute 0.3 10^3/cmm (0.0-1.2); Total Cells Counted 100 (0-100)
[2025-07-10 06:25] LABS: Giant Platelets Trace
[2025-07-10] MEDS: oxyCODONE 5 mg IR Tab/Cap PO ×2 (09:37→22:09)
[2025-07-10] MEDS: ondansetron 2 mg/ML SDV 2 mL 4 MG IVP ×2 (09:37→20:22)
--- NOTE | 2025-07-10 10:27 | P.PN_ITS ---
Subjective 2 Subjective: No acute events overnight Vitals/I&O/Wt Last Vital Signs Temp 98.4 F 07/10/25 07:53 Pulse 91 07/10/25 09:54 Resp 17 07/10/25 09:54 BP 173/88 07/10/25 07:53 Pulse Ox 98 07/10/25 09:54 O2 Del Method Nasal Cannula 07/10/25 09:54 O2 Flow Rate 3 07/10/25 09:54 07/09/25 07/10/25 07/10/25 22:59 06:59 14:59 Intake Total 480 / 480 Output Total 2380 / 2380 1500 / 3880 650 / 650 Balance -2380 / -1480 -1500 / -2980 -170 / -170 Weight last 48 hrs Weight 469 lb Weight 469 lb Physical Exam 2 Narrative: Chest: Unlabored breathing room air. No lymphadenopathy. Heart: Regular rate and rhythm. Abdomen: Soft, nontender, nondistended. No masses or lymphadenopathy. Bilateral lower extremity cellulitis and elephantiasis Urinary Catheter Management: Brumfield: Cath Placed During This Visit: yes Reason for Continuing Indwelling Catheter: Acute Urinary Retention or Obstruction Urinary Catheter Date of Insertion: 07/04/25 Urinary Catheter Time of Insertion: 21:30 Data 07/11/25 03:17 07/11/25 03:17 Micro: Microbiology 07/04/25 20:00 Blood Culture - Final Blood NO GROWTH AFTER 5 DAYS 07/04/25 19:46 Blood Culture - Final Blood Staphylococcus Auricularis A&P Assessment and plan 1. Cellulitis: Plan: 50-year-old female who has responded well to antibiotics to treat bilateral lower extremity cellulitis. Follow-up with wound care for treatment of lymphedema. Discussed with hospitalist. Will sign off. PDMP PDMP Reviewed: Not Reviewed Attestations 2 Medical Necessity Statement*: N/A Coding Level of Care Code 77535 Diagnoses Cellulitis L03.90
--- NOTE | 2025-07-10 14:23 | P.PN_ITS ---
Subjective 2 Subjective: Patient was seen this morning, currently alert oriented x 3, following commands, denies any fevers, chills, no cough, no lightheadedness, no dizziness, swelling is coming down, erythema of left leg improving Vitals/I&O/Wt Last Vital Signs Temp 98.3 F 07/10/25 11:49 Pulse 86 07/10/25 11:49 Resp 18 07/10/25 11:49 BP 158/85 07/10/25 11:49 Pulse Ox 97 07/10/25 11:49 O2 Del Method Nasal Cannula 07/10/25 11:49 O2 Flow Rate 3 07/10/25 09:54 07/09/25 07/10/25 07/10/25 22:59 06:59 14:59 Intake Total 720 / 720 Output Total 2380 / 2380 1500 / 3880 650 / 650 Balance -2380 / -1480 -1500 / -2980 70 / 70 Weight last 48 hrs Weight 212.735 kg Weight 212.735 kg Physical Exam 2 Const: COMMON NORMALS: no acute distress and patient oriented x3 Resp: COMMON NORMALS: normal respiratory effort, No retractions, No use of accessory muscles and clear to auscultation bilaterally AUSCULTATION: clear to auscultation bilaterally Cardio: COMMON NORMALS: regular rate, regular rhythm, S1 normal heart sound present and S2 normal heart sound present RATE: regular rate RHYTHM: r egular rhythm HEART SOUNDS: S1 normal heart sound present and S2 normal heart sound present GI: COMMON NORMALS: Normal to inspection, nondistended, normoactive bowel sounds present and non-tender Extremity: NARRATIVE EXTREMITY EXAM: Left leg, erythema, swelling, tenderness significantly improved, has 2+ pitting edema Neuro: COMMON NORMALS: patient oriented x3 Psych: COMMON NORMALS: mental status grossly normal Urinary Catheter Management: Brumfield: Cath Placed During This Visit: yes Reason for Continuing Indwelling Catheter: Acute Urinary Retention or Obstruction Urinary Catheter Date of Insertion: 07/04/25 Urinary Catheter Time of Insertion: 21:30 Data 07/10/25 04:25 07/10/25 04:25 Micro: Microbiology 07/06/25 09:02 Urine Culture - Final Urine Catheterized Nakaseomyces glabrata 07/04/25 20:00 Blood Culture - Final Blood NO GROWTH AFTER 5 DAYS 07/04/25 19:46 Blood Culture - Final Blood Staphylococcus Auricularis A&P Assessment and plan 1. Sepsis: 2. Cellulitis: 3. Cystitis: 4. Rhabdomyolysis: 5. Atrial fibrillation with rapid ventricular response: 6. Acute kidney injury: 7. Lymphedema: 8. Open wound of left lower extremity with complication: 9. Hypertension: 10. Anxiety and depression: 11. Morbid obesity: 12. Septic shock: Plan: Sepsis with septic shock - Source -Cellulitis of bilateral extremities, concern for deep tissue infection -Urinary tract infection Plan - Off Levophed -Blood cultures, staph auricularis, likely contaminated -Wound culture -Urine culture Nakaseomyces glabrata -Currently on Diflucan - Zyvox -Meropenem -The patient declined CT scan of bilateral lower extremity to evaluate for underlying abscess, deep tissue infection Bilateral extremity edema - Bumex 1 mg IV twice daily - -5 L so far Staphylococcal bacteremia, likely contamination, staph auricularis -Follow identification - Continue IV antibiotics as above Urinary tract infection, as above -Cannot do a CT scan abdomen pelvis given patient's BMI, and girth - Will order renal ultrasound, no acute findings - Continue p.o. Diflucan Cellulitis, deep tissue injury bilateral extremities - Continue antibiotics as above - General Surgery consulted for consideration of debridement, recommend medical management - Will need to follow-up with wound care as outpatient Atrial fibrillation with rapid ventricular response - Continue amiodarone drip transition to p.o. amiodarone - [id number] score 2 - continue aspirin Bilateral lower extremity edema, fluid overload, - Bumex IV twice daily Lactic acidosis -Secondary to septic shock as above Rhabdomyolysis - Addressed with IV hydration, will hold off on further IV hydration given concerns for fluid overload Continue to monitor Acute renal failure, improving - Secondary to sepsis, septic shock, rhabdomyolysis - Renal ultrasound - Monitor urine output, monitor creatinine NSTEMI - No chest pain complaints - Serial EKGs, serial troponins, telemetry monitoring Hypomagnesemia monitor Oral herpetic lesions, continue valacyclovir Protonix for GI prophylaxis Heparin for DVT prophylaxis Full code PDMP PDMP Reviewed: Not Reviewed Attestations 2 Medical Necessity Statement*: Patient requires hospitalization for cellulitis left lower extremity, fluid overload Diagnoses Sepsis A41.9 Cellulitis L03.90 Cystitis N30.90 Rhabdomyolysis M62.82 Atrial fibrillation with rapid ventricular response I48.91 Acute kidney injury N17.9 Lymphedema I89.0 Open wound of left lower extremity with complication S81.802A Hypertension I10 Anxiety and depression F41.9; F32.A Morbid obesity E66.01 Septic shock A41.9; R65.21
[2025-07-11] VITALS (14 sets, daily range): BP systolic 151–171; BP diastolic 52–96; PULSE 66–108; RESP 16–18; TEMP 36.6–36.8; O2SAT 96–98
[2025-07-11] MEDS: heparin 5,000 unit/mL INJ 1 mL 5000 UNIT SUBCUT ×2 (01:03→13:43)
[2025-07-11 04:09] LABS: Hematocrit 31.4 % (36-47); Hemoglobin 9.80 g/dL (11.27-16.99); Mean Corpuscular HGB Conc 31.2 g/dL (30-55); Mean Corpuscular Hemoglobin 26.3 pg (27-33); Mean Corpuscular Volume 84.2 fl (85-98); Platelet Count 285 10^3/cmm (157-399); Red Blood Count 3.73 10^6/uL (3.85-5.65); White Blood Count 8.96 10^3/uL (3.29-11.43)
[2025-07-11 04:10] LABS: Alanine Aminotransferase 25 U/L (0-33); Albumin Level 3.1 g/dL (3.5-5.2); Alkaline Phosphatase 106 U/L (35-105); Anion Gap 11.4 (5-19); Aspartate Amino Transferase 24 U/L (0-32); Blood Urea Nitrogen 16 mg/dL (6-20); Calcium 8.4 mg/dL (8.5-10.5); Carbon Dioxide 35 mmol/L (22-29); Chloride 100 mmol/L (98-107); Creatinine Clr Calc Pharmacy 220.8920; Globulin 4.1 g/dL (1.3-4.6); Glucose 108 mg/dL (65-115); Osmolality Calculated 298 mOsm/kg (285-295); Potassium 3.4 mmol/L (3.5-5.1); Sodium 143 mmol/L (136-145); Total Protein 7.2 g/dL (6.6-8.7)
[2025-07-11 04:30] LABS: Slide Review Slide Review Perform
[2025-07-11] MEDS: bumetanide 0.25 mg/mL SDV 4 mL 1 MG IVP (04:51)
[2025-07-11] MEDS: meropenem 1,000 mg SDV 1000 MG IVP ×2 (04:51→11:31)
[2025-07-11 04:57] LABS: Absolute Segmented Neutrophil 5.6 10/cmm (1.6-7.1); Atypical Lymphs 2.0 % (0-5); Band Neutrophils Absolute 0.3 10^3/cmm (0.0-1.2); Total Cells Counted 100 (0-100)
[2025-07-11] MEDS: oxyCODONE 5 mg IR Tab/Cap PO ×2 (09:33→21:10)
[2025-07-11] MEDS: ondansetron 2 mg/ML SDV 2 mL 4 MG IVP (09:33)
--- NOTE | 2025-07-11 15:33 | PC.SOCIAL ---
IMM UPDATED IMM dated and initialed, copy given to patient and copy placed in chart.
--- NOTE | 2025-07-11 16:02 | P.PN_ITS ---
Subjective 2 Subjective: Patient was seen this morning, currently alert oriented x 3, following all commands, her shortness of breath is improving her edema is improving she was -7 L yesterday, discussing continue to diurese her today, monitor urine output, trend creatinine, monitoring her swallowing, will have her ambulate, do transfers, plan on possibly discharging today depending on how her ambulatory status, and diuresis Vitals/I&O/Wt Last Vital Signs Temp 97.8 F 07/11/25 11:07 Pulse 80 07/11/25 11:07 Resp 18 07/11/25 11:07 BP 171/79 07/11/25 13:42 Pulse Ox 97 07/11/25 11:07 O2 Del Method Nasal Cannula 07/11/25 11:07 O2 Flow Rate 2 07/11/25 02:00 07/11/25 07/11/25 07/11/25 06:59 14:59 22:59 Intake Total 960 / 960 Output Total 3750 / 7250 1850 / 1850 Balance -3750 / -6050 -890 / -890 Weight last 48 hrs Weight 211.629 kg Weight 212.735 kg Physical Exam 2 Const: COMMON NORMALS: no acute distress and patient oriented x3 Resp: COMMON NORMALS: normal respiratory effort, No retractions, No use of accessory muscles and clear to auscultation bilaterally AUSCULTATION: clear to auscultation bilaterally Cardio: COMMON NORMALS: regular rate, regular rhythm, S1 normal heart sound present and S2 normal heart sound present RATE: regular rate RHYTHM: r egular rhythm HEART SOUNDS: S1 normal heart sound present and S2 normal heart sound present GI: COMMON NORMALS: Normal to inspection, nondistended, normoactive bowel sounds present and non-tender Extremity: NARRATIVE EXTREMITY EXAM: 2+ pitting edema, erythema/swelling/sign ificantly improved Neuro: COMMON NORMALS: patient oriented x3 Psych: COMMON NORMALS: mental status grossly normal Urinary Catheter Management: Brumfield: Cath Placed During This Visit: yes Reason for Continuing Indwelling Catheter: Other Urinary Catheter Date of Insertion: 07/04/25 Urinary Catheter Time of Insertion: 21:30 Data 07/11/25 03:17 07/11/25 03:17 Micro: Microbiology 07/06/25 08:53 Blood Culture - Final Blood NO GROWTH AFTER 5 DAYS 07/06/25 08:51 Blood Culture - Final Blood NO GROWTH AFTER 5 DAYS 07/06/25 09:02 Urine Culture - Final Urine Catheterized Nakaseomyces glabrata A&P Assessment and plan 1. Sepsis: 2. Cellulitis: 3. Cystitis: 4. Rhabdomyolysis: 5. Atrial fibrillation with rapid ventricular response: 6. Acute kidney injury: 7. Lymphedema: 8. Open wound of left lower extremity with complication: 9. Hypertension: 10. Anxiety and depression: 11. Morbid obesity: 12. Septic shock: Plan: Sepsis with septic shock - Source -Cellulitis of bilateral extremities, concern for deep tissue infection -Urinary tract infection Plan -Blood cultures, staph auricularis, likely contaminated -Wound culture -Urine culture Nakaseomyces glabrata -Currently on Diflucan - De-escalate to cefdinir, ciprofloxacin Bilateral extremity edema - Bumex 1 mg IV twice daily, 1 dose metolazone - -10 L so far Staphylococcal bacteremia, likely contamination, staph auricularis -Follow identification - Continue IV antibiotics as above Urinary tract infection, as above -Cannot do a CT scan abdomen pelvis given patient's BMI, and girth - Will order renal ultrasound, no acute findings - Continue p.o. Diflucan - Antibiotics as above Cellulitis, deep tissue injury bilateral extremities - Continue antibiotics as above - General Surgery consulted for consideration of debridement, recommend medical management - Will need to follow-up with wound care as outpatient Atrial fibrillation with rapid ventricular response - Continue amiodarone drip transition to p.o. amiodarone - [id number] score 2 - continue aspirin Bilateral lower extremity edema, fluid overload, - Bumex IV twice daily above Lactic acidosis -Secondary to septic shock as above Rhabdomyolysis - Addressed with IV hydration, will hold off on further IV hydration given concerns for fluid overload Continue to monitor Acute renal failure, improving - Secondary to sepsis, septic shock, rhabdomyolysis - Renal ultrasound - Monitor urine output, monitor creatinine NSTEMI - No chest pain complaints - Serial EKGs, serial troponins, telemetry monitoring Hypomagnesemia monitor Oral herpetic lesions, continue valacyclovir Morbidly obese, BMI 65.1 Protonix for GI prophylaxis Heparin for DVT prophylaxis Full code PDMP PDMP Reviewed: Not Reviewed Attestations 2 Medical Necessity Statement*: Patient requires hospitalization for fluid overload, requiring IV diuresis, cellulitis Diagnoses Sepsis A41.9 Cellulitis L03.90 Cystitis N30.90 Rhabdomyolysis M62.82 Atrial fibrillation with rapid ventricular response I48.91 Acute kidney injury N17.9 Lymphedema I89.0 Open wound of left lower extremity with complication S81.802A Hypertension I10 Anxiety and depression F41.9; F32.A Morbid obesity E66.01 Septic shock A41.9; R65.21
[2025-07-12] VITALS (7 sets, daily range): BP systolic 101–163; BP diastolic 62–84; PULSE 70–92; RESP 16–19; TEMP 36.4–36.6; O2SAT 92–97
[2025-07-12] MEDS: heparin 5,000 unit/mL INJ 1 mL 5000 UNIT SUBCUT (01:13)
[2025-07-12 05:36] LABS: Hematocrit 34.9 % (36-47); Hemoglobin 10.60 g/dL (11.27-16.99); Mean Corpuscular HGB Conc 30.4 g/dL (30-55); Mean Corpuscular Hemoglobin 26.4 pg (27-33); Mean Corpuscular Volume 86.8 fl (85-98); Nucleated Red Blood Cells % 0 %; Platelet Count 324 10^3/cmm (157-399); Red Blood Count 4.02 10^6/uL (3.85-5.65); White Blood Count 10.11 10^3/uL (3.29-11.43)
[2025-07-12 05:57] LABS: Alanine Aminotransferase 34 U/L (0-33); Albumin Level 3.0 g/dL (3.5-5.2); Alkaline Phosphatase 101 U/L (35-105); Aspartate Amino Transferase 31 U/L (0-32); Blood Urea Nitrogen 17 mg/dL (6-20); Calcium 8.4 mg/dL (8.5-10.5); Carbon Dioxide 33 mmol/L (22-29); Chloride 95 mmol/L (98-107); Creatinine Clr Calc Pharmacy 217.1222; Globulin 4.4 g/dL (1.3-4.6); Glucose 107 mg/dL (65-115); Osmolality Calculated 292 mOsm/kg (285-295); Sodium 140 mmol/L (136-145); Total Protein 7.4 g/dL (6.6-8.7)
[2025-07-12 06:25] LABS: Anion Gap 15.4 (5-19); Potassium 3.4 mmol/L (3.5-5.1)
[2025-07-12] MEDS: ondansetron 2 mg/ML SDV 2 mL 4 MG IVP (08:02)
[2025-07-12] MEDS: oxyCODONE 5 mg IR Tab/Cap PO (08:21)
[2025-07-12] MEDS: bumetanide 0.25 mg/mL SDV 4 mL 1 MG IVP (09:13)
--- NOTE | 2025-07-12 11:27 | P.DS_ITS ---
Discharge Providers Date of Admission: 07/04/25 21:04 Date of Discharge: July 12, 2025 Attending Provider at Admission: Samantha Bean MD Attending Provider at Discharge: Trip Batista MD Primary Care Provider: ANDRES Hernandez Diagnoses at Discharge Discharge Diagnosis 1. Sepsis: 2. Cellulitis: 3. Cystitis: 4. Rhabdomyolysis: 5. Atrial fibrillation with rapid ventricular response: 6. Acute kidney injury: 7. Lymphedema: 8. Open wound of left lower extremity with complication: 9. Primary hypertension: 10. Anxiety and depression: 11. Morbid obesity: 12. Septic shock: Reason for Visit Reason for Visit: low bp Hospital Course Hospital Course This is a 50-year-old female with a past medical history of morbid obesity, history of bilateral lower extremity lymphedema, who presents [facility] due to lower extremity edema/erythema, tenderness Patient was admitted to [facility] for sepsis with septic shock secondary to lower extremity cellulitis, received broad-spectrum antibiotic therapy, required ICU admission required pressor therapy, overall clinically improved movement, moved out of ICU, infectious disease consulted kept on IV antibiotics, overall erythema/swelling/tenderness of bilateral lower extremity significant improved, discharged on p.o. antibiotic therapy For patient's urinary tract infection, managed on IV antibiotic therapy, overall clinically proved, urine culture showing Nakaseomyces glabrata, discharged on p.o. Diflucan There was concerns for streptococcal bacteremia, infectious disease consulted, however blood cultures positive for Staphylococcus auricularis likely contamination, repeat blood cultures negative, discussed risk and benefits with patient, she voiced understanding, all questions answered, agreed to proceed Patient's hospitalization was complicated by septic shock, resolved Patient's hospitalization was complicated by fluid overload, bilateral lower extremity edema, received IV diuresis, diuresed 13 L negative Patient's hospitalization was complicated with atrial fibrillation with rapid ventricular response, managed with amiodarone drip, de-escalated to p.o. amiodarone, discharged on p.o. amiodarone, remains atrial fibrillation on discharge however rate is well-controlled. Patient's [id number] score is 2, discussed risks and benefits of anticoagulant therapy, shared decision making, patient voiced understanding, all questions answered, for now she wants to just proceed with aspirin 81 mg daily. If patient were to have any strokelike symptoms, please call 911, follow-up with primary care Acute renal failure, secondary to septic shock, resolved There was concern for oral herpetic lesions, managed on oral valacyclovir, discharged on oral acyclovir Physical Exam Const: COMMON NORMALS: no acute distress and patient oriented x3 Resp: COMMON NORMALS: normal respiratory effort, No retractions, No use of accessory muscles and clear to auscultation bilaterally AUSCULTATION: clear to auscultation bilaterally Cardio: COMMON NORMALS: regular rate, regular rhythm, S1 normal heart sound present and S2 normal heart sound present RATE: regular rate RHYTHM: reg ular rhythm HEART SOUNDS: S1 normal heart sound present and S2 normal heart sound present GI: COMMON NORMALS: Normal to inspection, nondistended, normoactive bowel sounds present and non-tender Extremity: NARRATIVE EXTREMITY EXAM: Nonpitting edema, erythema, swelling, tenderness, significantly resolving 1 blister measuring 1 x 1 cm, improved DP PT pulses are palpable Neuro: COMMON NORMALS: patient oriented x3 Psych: COMMON NORMALS: mental status grossly normal Urinary Catheter Management: [place]: Cath Placed During This Visit: yes Reason for Continuing Indwelling Catheter: Other Urinary Catheter Date of Insertion: 07/04/25 Urinary Catheter Time of Insertion: 21:30 Discharge Data Studies Completed and Pending Completed Studies During Hospitalization Category Date Time Status XR chest 1V portable [id number] Stat Exams 07/04/25 19:38 Completed XR chest 1V portable [id number] Stat Exams 07/04/25 22:25 Completed CV. echo complete* [id number] Routine Ultrasound 07/06/25 08:29 Completed US renal BI* [id number] Routine Ultrasound 07/06/25 09:06 Completed Radiology Impressions Chest X-Ray 07/04/25 22:25 IMPRESSION: No definite acute infiltrate or effusion. Right neck central line, tip in the cavoatrial junction. Renal Ultrasound 07/06/25 09:06 IMPRESSION: Normal renal ultrasound. Laboratory Results WBC 10.11 10^3/uL (3.29-11.43) 07/12/25 04:41 RBC 4.02 10^6/uL (3.85-5.65) 07/12/25 04:41 Hgb 10.60 g/dL (11.27-16.99) L 07/12/25 04:41 Hct 34.9 % (36-47) L 07/12/25 04:41 MCV 86.8 fl (85-98) 07/12/25 04:41 MCH 26.4 pg (27-33) L 07/12/25 04:41 MCHC 30.4 g/dL (30-55) 07/12/25 04:41 RDW 16.4 % (12.1-15.1) H 07/12/25 04:41 Plt Count 324 10^3/cmm (157-399) 07/12/25 04:41 MPV 9.7 fL (7.4-10.4) 07/12/25 04:41 Neut % (Auto) 64.1 % 07/12/25 04:41 Lymph % (Auto) 19.1 % 07/12/25 04:41 [place] % (Auto) 8.0 % 07/12/25 04:41 Eos % (Auto) 3.3 % 07/12/25 04:41 Baso % (Auto) 0.6 % 07/12/25 04:41 Neut # (Auto) 6.48 10^3/uL (1.8-7.7) 07/12/25 04:41 Lymph # (Auto) 1.9 10^3/uL (0.8-4.8) 07/12/25 04:41 [place] # (Auto) 0.8 10^3/uL (0.2-0.9) 07/12/25 04:41 Eos # (Auto) 0.3 10^3/uL (0.0-0.8) 07/12/25 04:41 Baso # (Auto) 0.1 10^3/uL (0.0-0.1) 07/12/25 04:41 Nucleated RBC % (auto) 0 % 07/12/25 04:41 Total Counted 100 (0-100) 07/11/25 03:17 Atypical Lymphs % 2.0 % (0-5) 07/11/25 03:17 Absolute Neutrophils 5.9 10^3/cmm (1.4-6.5) 07/11/25 03:17 Segmented Neutrophils 63 % 07/11/25 03:17 Band Neutrophils 3.0 % 07/11/25 03:17 Absolute Lymphocytes 1.9 10^3/cmm (1.2-3.4) 07/11/25 03:17 Lymphocytes (Manual) 19 % 07/11/25 03:17 Monocytes (Manual) 5.0 % 07/11/25 03:17 Absolute Monocytes 0.4 10^3/cmm (0.1-0.6) 07/11/25 03:17 Eosinophils (Manual) 6 % 07/11/25 03:17 Absolute Eosinophils 0.5 10^3/cmm (0.0-0.7) 07/11/25 03:17 Basophils (Manual) 0.0 % 07/11/25 03:17 Absolute Basophils 0.0 10^3/cmm (0.0-0.2) 07/11/25 03:17 Metamyelocytes 0.0 % 07/11/25 03:17 Myelocytes 2.0 % 07/11/25 03:17 Nucleated RBCs 1.0 /100WBC (0-1) 07/09/25 04:30 Nucleated RBCs # 0.0 /100WBC 07/12/25 04:41 Platelet Estimate Normal (Normal) 07/11/25 03:17 Giant Platelets Trace 07/10/25 04:25 Specimen Type Arterial 07/04/25 21:06 Sample Site Radial, right 07/04/25 21:06 ABG pH 7.35 (7.35-7.45) 07/04/25 21:06 ABG pCO2 39.1 mmHg (35-45) 07/04/25 21:06 ABG pO2 80.4 mmHg (80.0-100.0) 07/04/25 21:06 ABG PO2/FiO2 Ratio 182 07/04/25 21:06 ABG HCO3 21.8 mmol/L (22-26) L 07/04/25 21:06 ABG O2 Saturation 96.5 07/04/25 21:06 ABG Base Excess -3.5 mmol/L (-2.0-2.0) L 07/04/25 21:06 Gavin Test Pos 07/04/25 21:06 A-a O2 Gradient 24.0 mmHg (5-10) H 07/04/25 21:06 Hematocrit 37.0 % (37-47) 07/04/25 21:06 Hgb O2 Saturation 94.5 % (95-100) L 07/04/25 21:06 Carboxyhemoglobin 1.5 %THgb (0.4-20.1) 07/04/25 21:06 Methemoglobin 0.6 % (0.4-1.5) 07/04/25 21:06 Total Hemoglobin 12.1 g/dL (12-16) 07/04/25 21:06 Sodium 134.0 mmol/L (131-143) 07/04/25 21:06 Potassium 4.5 mmol/L (3.5-5.0) 07/04/25 21:06 Glucose 127.0 mg/dL (70-115) H 07/04/25 21:06 Ionized Calcium 1.1 mmol/L (1.1-1.4) 07/04/25 21:06 O2 Delivery Device Nc 07/04/25 21:06 O2 Liters/Min 6.0 % 07/04/25 21:06 FiO2 44.0 % 07/04/25 21:06 Industrial Relations Worker ID [email or web address] 07/04/25 21:06 Sodium 140 mmol/L (136-145) 07/12/25 04:41 Potassium 3.4 mmol/L (3.5-5.1) L 07/12/25 04:41 Chloride 95 mmol/L (98-107) L 07/12/25 04:41 Carbon Dioxide 33 mmol/L (22-29) H 07/12/25 04:41 Anion Gap 15.4 (5-19) 07/12/25 04:41 BUN 17 mg/dL (6-20) 07/12/25 04:41 Creatinine 0.6 mg/dL (0.5-0.9) 07/12/25 04:41 GFR Calculation 105.0 mL/min (90-130) 07/12/25 04:41 Glucose 107 mg/dL (65-115) 07/12/25 04:41 Calculated Osmolality 292 mOsm/kg (285-295) 07/12/25 04:41 Lactic Acid 5.9 mmol/L (0.5-2.2) H* 07/04/25 19:46 Lactic Acid (Sepsis) 3.9 mmol/L (0.5-2.2) H 07/04/25 22:24 Lactate 0.9 mmol/L (0.5-2.2) 07/08/25 05:26 Calcium 8.4 mg/dL (8.5-10.5) L 07/12/25 04:41 Phosphorus 2.7 mg/dL (2.5-4.5) 07/08/25 05:26 Magnesium 2.0 mg/dL (1.7-2.3) 07/08/25 05:26 Total Bilirubin 0.5 mg/dL (0.15-1.2) 07/12/25 04:41 AST 31 U/L (0-32) 07/12/25 04:41 ALT 34 U/L (0-33) H 07/12/25 04:41 Alkaline Phosphatase 101 U/L (35-105) 07/12/25 04:41 Creatine Kinase 128 U/L (26-192) 07/08/25 05:26 Troponin T Baseline 40 ng/L (0-10) H 07/04/25 19:46 Troponin T 120 Minute 34.89 ng/L (0-10) H 07/04/25 22:24 Delta Troponin T -5.11 ABS# (0-10) L 07/04/25 22:24 Troponin T Hi Sens 6Hr 42.69 ng/L (0-10) H 07/05/25 01:33 Troponin T Hi Sens 6Hr Delta 2.69 ng/L (0-12) 07/05/25 01:33 C-Reactive Protein 161.6 mg/L (0.0-4.9) H 07/08/25 05:26 NT-Pro-B Natriuret Pep 4491 pg/mL (0-125) H 07/08/25 05:26 Total Protein 7.4 g/dL (6.6-8.7) 07/12/25 04:41 Albumin 3.0 g/dL (3.5-5.2) L 07/12/25 04:41 Globulin 4.4 g/dL (1.3-4.6) 07/12/25 04:41 Lipase 11 U/L (13-60) L 07/04/25 19:46 Procalcitonin 7.74 ng/mL (0-0.5) H 07/08/25 05:26 TSH 1.44 uIU/mL (0.27-4.20) 07/04/25 19:46 Urine Color [place] (Yellow) A 07/04/25 21:30 Urine Appearance Turbid (CLEAR) A 07/04/25 21:30 Urine pH 5.0 (5-7) 07/04/25 21:30 Ur Specific [place] 1.026 (1.005-1.030) 07/04/25 21:30 Urine Protein 1+ (Negative) A 07/04/25 21:30 Urine Glucose (UA) Negative (Normal) 07/04/25 21:30 Urine Ketones 1+ (Negative) H 07/04/25 21: Urine Blood Negative (Negative) 07/04/25 21: Urine Nitrate Positive (Negative) A 07/04/25 21: Urine Bilirubin 2+ (Negative) H 07/04/25 21: Urine Urobilinogen 1.0 mg/dL (Negative) 07/04/25 21: Ur Leukocyte Esterase 1+ (Negative) A 07/04/25 21: Urine RBC 11-20 /hpf (0-2) H 07/04/25 21:30 Urine WBC 0-5 /hpf (0-5) 07/04/25 21:30 Ur Squamous Epith Cells 11-20 /hpf (0-5) H 07/04/25 21:30 Calcium Oxalate Crystal 5-10 /hpf H 07/04/25 21:30 Amorphous Sediment Not Reportable 07/04/25 21:30 Urine Bacteria None seen /hpf (NONE) 07/04/25 21:30 Hyaline Casts 46.74 /lpf 07/04/25 21:30 Urine Mucus 2+ /hpf 07/04/25 21:30 Nasal MRSA (PCR) Not detected (Not Detecte) 07/05/25 18:38 Vancomycin Trough 13.8 ug/mL (10-15) 07/07/25 19:40 Serum Ketones Negative (Negative) 07/04/25 19:46 C. difficile (PCR) Negative (Negative) 07/10/25 02:27 Vitals Last Vital Signs Temp 97.8 F 07/12/25 08:17 Pulse 76 07/12/25 08:17 Resp 18 07/12/25 08:21 BP 141/84 07/12/25 08:21 Pulse Ox 93 07/12/25 08:17 O2 Del Method Nasal Cannula 07/12/25 08:17 O2 Flow Rate 2 07/12/25 07:56 Discharge Plan Discharge Patient Disposition: Home Health Service Condition: Stable Prescriptions: New amiodarone [Pacerone] 200 mg Tablet See Rx Instructions .ROUTE .COMPLEX Qty: 60 0RF Rx Instructions: 1 tab twice daily for 3 days, followed by 1 tab daily aspirin 81 mg Tablet,Delayed Release (Dr/Ec) 81 mg PO DAILY 30 Days Qty: 30 0RF fluconazole 100 mg Tablet 100 mg PO DAILY 5 Days Qty: 5 0RF valacyclovir 1 gram Tablet 1,000 mg PO BID 5 Days Qty: 10 0RF ciprofloxacin HCl [Cipro] 500 mg tablet 500 mg PO BID 7 Days Qty: 14 0RF cefdinir 300 mg capsule 300 mg PO BID 7 Days Qty: 14 0RF potassium chloride [Klor-Con M20] 20 mEq tablet,ER particles/crystals 20 meq PO DAILY 30 Days Qty: 30 0RF Continued pregabalin 50 mg capsule 50 mg PO BID Qty: 60 0RF cholecalciferol (vitamin D3) 1,250 mcg (50,000 unit) capsule 50,000 unit PO .once weekly Qty: 12 0RF hydrocodone-acetaminophen 10-325 mg tablet 1 tab PO QID PRN (Reason: pain) naloxone 4 mg/actuation spray,non-aerosol 4 mg intranasal Q2M PRN (Reason: Opioid Overdose) Rx Instructions: spray 1 dose into ONE nostril; alternate nostrils w each dose until help arrives tramadol 100 mg tablet extended release 24 hr 100 mg PO DAILY ondansetron HCl 4 mg tablet 4 mg PO Q8H PRN (Reason: Nausea And Vomiting) trazodone 100 mg tablet 100 mg PO BEDTIME pantoprazole 40 mg tablet,delayed release (DR/EC) 40 mg PO BID albuterol sulfate [Ventolin HFA] 90 mcg/actuation HFA aerosol inhaler 2 puff inhalation Q4H PRN (Reason: Shortness Of Breath Or Wheezing) losartan 100 mg tablet 100 mg PO DAILY solifenacin 10 mg tablet 10 mg PO DAILY budesonide-formoterol [Breyna] 160-4.5 mcg/actuation HFA aerosol inhaler 2 puff inhalation BID bumetanide 2 mg tablet 2 mg PO DAILY Qty: 120 3RF cefadroxil 500 mg capsule 1,000 mg PO Q12H PRN (Reason: cellulitis) 7 Days Qty: 28 6RF Rx Instructions: start at first signs of cellulitis, continue for 7 days Held tizanidine 4 mg tablet 4 mg PO TID PRN (Reason: muscle spasms) Hold Instructions: Resume on 07/25/25. hold until your finished antibiotics Discharge Order = DC NOW: Discharge Order (Routine); Ordered 07/12/25 Ordered By: Trip Batista Referrals: [facility] [Outside] Mike Juarez M.D [Physician, Cardiology] - 07/14/25 Referral Note: Jillian Ace MD [Hospitalist, Hospitalist] - 2 weeks Referral Note: We have notified your physician's clinic of the need for a follow-up appointment to be scheduled. If you have not heard from them within the next 2 business days, please call them directly. Charissa Lundberg FNP [Primary Care Provider, [facility]] - 07/19/25 12:00 pm Referral Note: Bhavesh Will MD [Physician, Wound Care] - 1 week Discharge Diet: Cardiac Discharge Activity: Resume usual activity Patient Instructions: Ciprofloxacin (By mouth), Amiodarone (By mouth), Valacyclovir (By mouth), Cefdinir (By mouth), Acute Wound Care (DC), Opioid Safety, Post Anesthesia Care, Patient Portal & Igor Instructions Activity Restrictions/Additional Instructions: - Please take antibiotics as prescribed - Please limit fluid intake to 1 L of fluid a day - Please take Bumex 2 mg daily - Please follow-up with cardiology - For atrial fibrillation take amiodarone taper as prescribed - Please follow-up with Dr. Goodson Discharge Attestations Time Spent in Discharge Care*: greater than 30 min Quality Metrics Clinical Quality Measures [ No reported AMI, CVA or VTE this stay] Coding Level of Care Code 87561 Total time (in minutes) for Discharge: 45 Diagnoses Sepsis A41.9; R65.21; N17.9 Acute renal failure type: unspecified Sepsis acute organ dysfunction status: with acute organ dysfunction Sepsis type: sepsis due to unspecified organism Severe sepsis acute organ dysfunction type: acute renal failure Severe sepsis shock status: with septic shock Cellulitis L03.116 Laterality: left Site of cellulitis: extremity Site of cellulitis of extremity: lower extremity Cystitis N30.90 Rhabdomyolysis M62.82 Rhabdomyolysis type: non-traumatic Atrial fibrillation with rapid ventricular response I48.91 Acute kidney injury N17.9 Lymphedema I89.0 Open wound of left lower extremity with complication S81.802A Primary hypertension I10 Hypertension type: primary hypertension Anxiety and depression F41.9; F32.A Morbid obesity E66.01 Septic shock A41.9; R65.21
--- NOTE | 2025-07-12 13:50 | PC.OT ---
OT evaluation attempted with pt discharging; pt has no needs at this time.
== END 2025-07-12 14:21 | disposition home health service (06) | DRG 871 ==
LOC: ER 21:46 → ICU 21:52 → MEDSURG 07-07 15:37
PROVIDERS: Internal Medicine; Admitting Provider Internal Medicine; Emergency Provider Family Medicine; PCP Nurse Practitioner Family; Visit Provider Family Medicine
DX: A41.9 Sepsis, unspecified organism (principal); I21.4 Non-ST elevation (NSTEMI) myocardial infarction; R65.21 Severe sepsis with septic shock; L03.116 Cellulitis of left lower limb; M62.82 Rhabdomyolysis; N17.9 Acute kidney failure, unspecified; Z68.44 Body mass index [BMI] 60.0-69.9, adult; E87.20 Acidosis, unspecified; I50.30 Unspecified diastolic (congestive) heart failure; N30.90 Cystitis, unspecified without hematuria; B96.89 Other specified bacterial agents as the cause of diseases classified elsewhere; I48.91 Unspecified atrial fibrillation; I11.0 Hypertensive heart disease with heart failure; F41.9 Anxiety disorder, unspecified; F32.A Depression, unspecified; E66.01 Morbid (severe) obesity due to excess calories; B00.9 Herpesviral infection, unspecified; I89.0 Lymphedema, not elsewhere classified; G47.33 Obstructive sleep apnea (adult) (pediatric); E83.42 Hypomagnesemia; I87.2 Venous insufficiency (chronic) (peripheral); Z99.3 Dependence on wheelchair; Z87.891 Personal history of nicotine dependence
CPT/HCPCS: 36415; 36592; 36600; 51702; 71045; 76770; 80051; 80053; 80202; 81001; 82009; 82330; 82550; 82805; 83605; 83690; 83735; 83880; 84100; 84145; 84443; 84484; 85007; 85025; 86140; 87040; 87070; 87075; 87077; 87086; 87106; 87150; 87186; 87205; 87493; 93005; 93306; 94640; 94664; 96365; 96366; 96367; 96372; 99291; 99292; A4222; J0282; J0283; J1200; J1644; J1938; J2020; J2185; J2270; J2405; J2765; J3373; J3475; J3490; J7030; J7050; J7611; J9999; P9046

== ENCOUNTER → 2025-07-14 11:46 | Outpatient (BNVA) | payer MEDICARE, MEDICAID, SELFPAY | PROVIDERS: PCP Nurse Practitioner Family; Referring Provider Nurse Practitioner Family; Visit Provider Internal Medicine Cardiovascular Disease | DX: I48.91 Unspecified atrial fibrillation (principal) | CPT/HCPCS: 93005; 99214 ==

== ENCOUNTER → 2025-07-18 09:21 | Outpatient (BNVA) | payer MEDICARE, MEDICAID, SELFPAY | PROVIDERS: PCP Nurse Practitioner Family; Visit Provider Thoracic Surgery (Cardiothoracic Vascular Surgery) | DX: I96 Gangrene, not elsewhere classified (principal); I89.0 Lymphedema, not elsewhere classified; L97.821 Non-pressure chronic ulcer of other part of left lower leg limited to breakdown of skin ==

== ENCOUNTER → 2025-07-19 12:43 | Outpatient (BNVA) | payer MEDICARE, MEDICAID, SELFPAY | PROVIDERS: PCP Nurse Practitioner Family; Visit Provider Nurse Practitioner Family | DX: M62.82 Rhabdomyolysis (principal); N17.9 Acute kidney failure, unspecified | CPT/HCPCS: 80053; 85025 ==

== ENCOUNTER → 2025-07-25 09:41 | Outpatient (BNVA) | payer MEDICARE, MEDICAID, SELFPAY | PROVIDERS: PCP Nurse Practitioner Family; Visit Provider Thoracic Surgery (Cardiothoracic Vascular Surgery) | DX: I96 Gangrene, not elsewhere classified (principal); L97.821 Non-pressure chronic ulcer of other part of left lower leg limited to breakdown of skin; L03.116 Cellulitis of left lower limb | CPT/HCPCS: 97597; 97598 ==

== ENCOUNTER → 2025-08-01 09:55 | Outpatient (BNVA) | payer MEDICARE, MEDICAID, SELFPAY | PROVIDERS: PCP Nurse Practitioner Family; Visit Provider Thoracic Surgery (Cardiothoracic Vascular Surgery) | DX: I96 Gangrene, not elsewhere classified (principal); I89.0 Lymphedema, not elsewhere classified; L97.821 Non-pressure chronic ulcer of other part of left lower leg limited to breakdown of skin; L03.116 Cellulitis of left lower limb | CPT/HCPCS: 97597; 97598 ==

== ENCOUNTER 2025-08-02 22:35 | Inpatient (IN) | payer MEDICARE, MEDICAID, SELFPAY ==
--- OUTSIDE RECORDS SUMMARY | 2025-08-02 22:46 | XMS_ITS | Patient Health Record ---
Author Organization [facility] Address [address] [place] [address] Care Team Providers Care Perinatal Technician Name Role Phone Tamika ARGUETANCharissa Primary Care Provider Neelam Campos Unavailable [phone] Charisse Halina Unavailable [phone] Allergies Allergen (clinical drug ingredient) Drug/Non Drug Allergy documented on EMR Reaction Allergy Type Onset Date Status Information temporarily unavailable Augmentin hives Drug Allergy Active Results Component Value Reference Range Flag Notes Urine Drug Screen (cup read) - 72265 Reviewed date:07/21/2025 04:02:01 PM Interpretation: Performing Lab: Notes/Report: OPI + Urine Drug Screen (cup read) - 52898 Reviewed date:04/26/2025 11:03:49 AM Interpretation: Performing Lab: Notes/Report: OPI + OXY + Urine Confirmation Panel (in strument) - [id number] Reviewed date:07/26/2025 01:12:39 PM Interpretation: Performing Lab: Notes/Report: 6-Acetylmorphine 0 [...] the U.S. Food and Drug Administration. Hydrocodone 536 <75 ng/mL H This test was developed and its performance characteristics determined by [facility]. It has not been cleared or approved by the U.S. Food and Drug Administration. Hydromorphone 206 <75 ng/mL H This test w as [...] the U.S. Food and Drug Administration. Methamphetamine 0 <75 ng/mL N This test was [...] the U.S. Food and Drug Administration. Tapentadol 0.0 <37.5 ng/mL N This test was [...] the U.S. Food and Drug Administration. Norhydrocodone 480 <75 ng/mL H This test was developed [...] the U.S. Food and Drug Administration. Pregabalin 0 <225 ng/mL N This test was [...] by the U.S. Food and Drug Administration. Urine Confirmation Panel (in strument) - [id number] Reviewed date:05/03/2025 03:13:54 PM Interpretation: Performing Lab: [...] the U.S. Food and Drug Administration. Pregabalin >65812 <225 ng/mL > This test was developed [...] Food and Drug Administration. Tox Results Reviewed date:07/26/2025 01:26:17 PM Interpretation: Performing Lab: Notes/Report: Tox Results Reviewed date:05/03/2025 03:19:27 PM Interpretation: Performing Lab: Notes/Report: Reason For Referral Reason chronic back pain gr eater than 3 month duration Diagnosis 1 Other chronic pain ( G89.29) Referring Provider First Name Charissa Referring Provider Last Name Tamika Referring Provider Speciality Nurse Prac titde kalbr Referred Organization [facility] Referred Provider Bijan Isaac Referred Address [address] [place] [address],ID,[phone], Referred Provider Specialty Pain Medicin e General Notes Sabiha Gan 12:17:38 PM >atc pt, no answer, no vm set up, Sabiha Gan 03/02/2025 01:50:09 PM >mailed npp, patient is scheduled for appt Referral Priority Routine Medications Medication SIG (Take, Route, Frequency, Duration) Notes Start Date End Date Status Ondansetron HCl 4 MG Tablet 1 tablet Orally Once a day Active traZODone HCl 100 MG Tablet 1 tablet at bedtime Orally Once a day Active Vitamin D3 1.25 MG (27522 UT) Capsule 1 capsule Orally Activ e tiZANidine HCl 4 MG Tablet 1 tablet at bedtime as needed Orally Once a day Active Active Pantoprazole Sodium 40 MG Tablet Delayed Release 1 tablet 1/2 to 1 hour before morning meal Orally Once a day Active Losartan Potassium 100 MG Tablet 1 tablet Orally Once a day Active Bumetanide 2 MG Tablet 1 tablet Orally Once a day Active traMADol HCl 50 MG Tablet 1 tablet as needed Orally Once a day Active Solifenacin Succinate 10 MG Tablet 1 tablet Orally Once a day Active HYDROcodone-Acetaminop hen 10-325 MG Tablet 1 tablet as needed Orally every 6 hrs Active Sucralfate 1 GM/10ML Suspension 10 mL 1 hour before meals and at bedtime on an empty stomach Orally Four times a day Active Potassium Chloride ER 20 MEQ Tablet Extended Release 1 tablet with food Orally Once a day Active Lyrica 50 MG Capsule 1 capsule Orally Once a day Active HYDROcodone-Acetaminop hen 10-325 MG Tablet 1 tablet Orally every 6 hrs; Duration: 30 days As needed Not to exceed 4 per day Fill on 08/20/2025 -closed Friday07/21/2025 09/19/2025 Active HYDROcodone-Acetaminop hen 10-325 MG Tablet 1 tablet Orally every 6 hrs; Duration: 30 days As needed Not to exceed 4 per day Fill on 07/22/2025 07/21/2025 08/21/2025 Active Social History Tobacco Use: Social History [...] Problem Status W/U Status Risk Notes Problem Information temporarily unavailable Other chronic pain (G89.29) Active confirmed Problem Information temporarily unavailable Chronic pain syndrome (G89.4) Active confirmed Problem Information temporarily unavailable Lymphedema (I89.0) Active confirmed Problem Information temporarily unavailable 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 Vital Signs Weight-kg 119.3 kg 07/21/2025 Weight 263 lbs 07/21/2025 Encounters Encounter Location Date Provider Diagnosis [facility] [place] [address] [place] [phone] 04/26/2025 Neelam Mtz geovani Chronic pain syndrome G89.4 ; Cervical spondylolysis M43.02 ; Knee pain M25.569 ; Lymphedema I89.0 and Chronic prescription opiate use Z79.891 [facility] [place] [address] [place] [address] 05/24/2025 Neelam Wilma-Pric e Chronic pain syndrome G89.4 ; Cervical spondylolysis M43.02 ; Knee pain M25.569 ; Lymphedema I89.0 and Chronic prescription opiate use Z79.891 [facility] [place] [address] [place] [address] 07/21/2025 Halina Mcqueen Chronic pain syndrome G89.4 ; Cervical spondylolysis M43.02 ; Knee pain M25.569 ; Lymphedema I89.0 and Chronic prescription opiate use Z79.891 [facility] [place] [address] [place] [address], [place] [address] 08/02/2025 Neelam Lyuksyutova-Pric e [facility] [place] [address] [place] [phone] 07/21/2025 Neelam Margeuksyutova-Pric e Cervical spondylolysis M43.02 [facility] [address] [place] [address] 08/02/2025 Neelam Lysyalexia-Pric e Lymphedema I89.0 Assessments Encounter Date Diagnosis (ICD Code) Assessment Notes Treatment Notes Treatment Clinical Notes Section Notes 04/26/2025 Chronic pain syndrome (ICD-10 - G89.4) Ms. Felipe is a very pleasant patient with history of presumed cervical spondylosis, lumbosacral spondylosis, knee osteoarthritis, and morbid obesity. She's working on having a Efliberto-en-Y gastric bypass. She also struggles with lymphedema [...] ER in the morning and continue the Hugheston 10/325 mg up to four tablets per day PRN to be utilized especially for wound care. In the past, she's tolerated this regimen of Tramadol and Hug[place]on well. PDMP reviewed with no untoward events [...] back in 8 weeks with nurse practitioner. 07/21/2025 Chronic pain syndrome (ICD-10 - G89.4) I had a nice discussion with the patient today regarding her chronic pain complaints. She continues with neck pain, knee pain, and pain from lymphedema. She does feel her medication is providing her with some relief. We are unable to consider interventional procedures right now as she exceeds the weight limit of the procedure bed. She is apparently hoping for gastric bypass which would be beneficial for her. She does report she became very ill and was in the hospital for 9 days with sepsis. She states 5 of those days she was in the ICU and she was told she almost . She states they were giving her oxycodone in the hospital. She denies any other changes since we last seen her any untoward side effects of the medication. I did discuss lifestyle modifications as well as a bowel regimen. She will continue her medication at present level and return to clinic in 2 months to monitor for treatment effectiveness and compliance. The patient continues with chronic pain requiring treatment to help restore function and improve quality of life. Risks of opioid therapy as well as interaction of opioids with alcohol, illicit drugs, muscle relaxers, and other sedative medications are reviewed briefly with patient again today. The patient has trialed all other reasonable treatment options and uses the medication to alleviate pain in order to remain active and rest with less pain. No clinically relevant medication side effects are noted. Last UDS and [place] BALANCE BRIDGE ASSEMBLER reviewed today. Patient is advised that best long-term goals include increased activity, core strengthening, proper weight management, coping strategies, avoidance of painful triggers, and targeted interventional therapy. We will see the patient for routine follow up in accordance with all clinic policies. We did remind patient today of current guidelines to decrease opioid when possible. We will continue to stress nonopioid treatment. RECOMMEND URINE TESTING TODAY Urine drug screening [...] to abide by our urine testing policy. 07/21/2025 Cervical spondylolysis (ICD-10 - M43.02) 08/02/2025 Lymphedema (ICD-10 - I89.0) 04/26/2025 Cervical spondylolysis (ICD-10 - M43.02) Both Xray orders printed and given and explained to pt 05/24/2025 Cervical spondylolysis (ICD-10 - M43.02) 07/21/2025 Cervical spondylolysis (ICD-10 - M43.02) 07/21/2025 Knee pain (ICD-10 - M25.569) 05/24/2025 Knee pain (ICD-10 - M25.569) 04/26/2025 Knee pain (ICD-10 - M25.569) 04/26/2025 Lymphedema (ICD-10 - I89.0) 05/24/2025 Lymphedema (ICD-10 - I89.0) 07/21/2025 Lymphedema (ICD-10 - I89.0) 07/21/2025 Chronic prescription opiate use (ICD-10 - Z79.891) 05/24/2025 Chronic prescription opiate use (ICD-10 - [...] abide by our urine testing policy. 04/26/2025 Petra Kang, am scribing for Dr. Blevins. IDr. Blevins, personally performed the services described in this documentation, as scribed by Petra Quintanilla, and it is both accurate and complete. 05/24/2025 Other I, Petra Quintanilla, am scribing for Dr. Blevins.I, Dr. Blevins, personally performed the services described in this documentation, as scribedby Petra Quintanilla, and it is both accurate and complete. Plan Of Treatment Pending Test Test Name Order Date Cervical Spine w/ Obl/Flex/Ext Comp-7205 2 04/26/2025 Knee Min 3V Bilateral-[id number] 04/26/2025 Next Appt Details Provider Name:Halina Julia goodrich, 09/22/2025 01:20:00 PM, [address] [place], [address], Insurance Providers Payer Name Payer Address Payer Phone Subscriber Number Group Number Insured Name Patient Relationship to Insured Coverage Start Date Coverage End Date [place] [address] [address] [place] [address] [phone] [id number] Ziyad Felipe Self - patient [place] the insured [place] [address] [place] [address] [phone] [id number] Ziyad Felipe Self - patient is the insured Medical (General) History Medical History History ICD Code High Blood Pressure bronchitis migraine headaches Depression Arthritis constipation kidney infection Swelling of multiple joints Surgical History Surgery Date(Month/Year) bowel surgery 2018 gastric bypass 2017 oophorectomy 2005 1994 gall bladder removal 1993 1993 1992
--- OUTSIDE RECORDS SUMMARY | 2025-08-02 22:47 | XMS_ITS | Encounter Summary ---
Author Organization [facility] Address [address] [place] [address] Care Team Providers Care Pigment Presser Name Role Phone Rikki Benitez DO Primary Care Provider [phone] Encounter Details Date Type Department Care Team (Latest Contact Info) Description 09/16/2016 Ancillary Orders [facility] Cardiology- [place] [address] [place] [address] Glenn Jefferson MD [address] [facility] [address] [place] [address] Morbid obesity with BMI of 60.0-69.9, adult ([facility]) (Primary Dx); Preop cardiovascular exam; SOB [...] Morbid obesity with BMI of 60.0-69.9, adult ([facility])- Primary Preop cardiovascular exam Pre-operative cardiovascular examination SOB (shortness of breath) Shortness of breath documented in this encounter Care Teams Pigment Presser Relationship Specialty Start Date End Date Rikki Benitez DO [address] [place] [address] PCP - General Specialist 09/02/16 documented as of this encounter
--- OUTSIDE RECORDS SUMMARY | 2025-08-02 22:47 | XMS_ITS | Encounter Summary ---
Author Organization [facility] Address [address] [place] [address] Care Team Providers Care Marine Cargo Surveyor Name Role Phone Rikki Benitez DO Primary Care Provider [phone] Reason for Referral * Outpatient Services (Routine) - Closed Specialty Diagnoses / Procedures Referred By Contac t Referred To Contact Radiology Diagnoses Morbid obesity with BMI of 60.0-69.9, adult (CMS/HCC) Preop cardiovascular exam SOB (shortness of breath) Procedures ECHOCARDIOGRAM W/ CONTRAST AGENT ECHO COMPLETE ECHO STRESS TEST PHARMACO W DOPP AND COLOR FLOW Glenn Jefferson MD Phone: tel: fax: [facility] [place] [address] [place] [address] Phone: tel: fax: Referral ID Status Reason Start Date Expiration Date V isits Requested Visits Authorized [id number] Closed [facility] TO SCHEDULE (SGF) 09/02/2016 10/03/2017 1 1 Encounter Details Date Type Department Care Team (Latest Contact Info) Description 09/16/2016 Ancillary Orders [facility] Cardiology- [place] [address] [place] [address] Glenn Jefferson MD [address] [place] [address] Morbid obesity with BMI of [...] ECHOCARDIOGRAM W/ CONTRAST AGENT (09/16/2016 2:06 PM RETAIL COVERAGE MERCHANDISER LEAD) EJECTION FRACTION 54 INTERFACE SYSTEM 09/16/2016 12:3 1 PM RETAIL COVERAGE MERCHANDISER LEAD Narrative INTERFACE SYSTEM - 09/16/2016 2:48 PM RETAIL COVERAGE MERCHANDISER LEAD [facility] Echocardiography-[address] [place] [address] Transthoracic Echocardiography Patient: Matteo Study ECHO STRESS Ziyad ID: TEST Gender: F : 1975 Age: 41 Room: Study 09/16/2016 Pt Outpatient Date: Status: Study 12:31 PM [facility] #: [id number] Time: Ordering:Glenn Jefferson MD Interpreting:Charlie Zavala MD Bible Reader: Yarelis Franco [facility] Indications and History: Pre-operative Cardiovascular Evaluation. SOB. [...] (*) roberson values outside specified normal range. [facility] are accredited with the Intersocietal Accreditation Commission - Echocardiography. Prepared and Electronically Authenticated Charlie Zavala MD Confirmed 09/16/2016 14:47 Procedure Note Josesito Zavala MD - 09/16/[address] [facility] Echocardiography-[place] [address] [facility] [address] [place] [address] Transthoracic Echocardiography Patient: Matteo Study ECHO STRESS Ziyad ID: TEST Gender: F : 1975 Age: 41 Room: Study 09/16/2016 Pt Outpatient Date: Status: Study 12:31 PM CSN #: [id number] Time: Ordering:Glenn Jefferson MD Interpreting:Charlie Zavala MD Bible Reader: Yarelis Franco [facility] Indications and History: Pre-operative Cardiovascular Evaluation. SOB. [...] (*) roberson values outside specified normal range. [facility] are accredited with the [facility] Accreditation Commission - Echocardiography. Prepared and Electronically Authenticated Charlie Zavala MD Confirmed 09/16/2016 14:47 us Glenn Jie Jefferson MD US ORDERABLES Final Result INTERFACE SYSTEM Refer to clinic/hospital department documented in this encounter Visit Diagnoses Diagnosis Morbid obesity with BMI of 60.0-69.9, adult ([facility]) Preop cardiovascular exam Pre-operative cardiovascular examination SOB (shortness of breath) Shortness of breath Morbid obesity with BMI of 60.0-69.9, adult ([facility])- Primary Preop cardiovascular exam Pre-operative cardiovascular examination SOB (shortness of breath) Shortness of breath documented in this encounter Care Teams Marine Cargo Surveyor Relationship Specialty Start Date End Date Rikki Benitez DO [address] [place] [address] PCP - General Specialist 09/02/16 documented as of this encounter
--- OUTSIDE RECORDS SUMMARY | 2025-08-02 22:47 | XMS_ITS | Encounter Summary ---
Author Organization [facility] Address [address] [place] [address] Care Team Providers Care Nnp Name Role Phone Rikki Benitez DO Primary Care Provider [phone] Encounter Details Date Type Department Care Team (Latest Contact Info) Description 09/16/2016 Ancillary Orders [facility] Cardiology- [place] [facility] [address] [place] [address] Glenn Jefferson MD [address] [facility] [address] [place] [address] Morbid obesity with BMI of 60.0-69.9, adult ([facility]) (Primary Dx); Preop cardiovascular exam; SOB (shortness [...] Morbid obesity with BMI of 60.0-69.9, adult ([facility])- Primary Preop cardiovascular exam Pre-operative cardiovascular examination SOB (shortness of breath) Shortness of breath documented in this encounter Care Teams Nnp Relationship Specialty Start Date End Date Rikki Benitez DO [address] [place] [address] PCP - General Specialist 09/02/16 documented as of this encounter
--- OUTSIDE RECORDS SUMMARY | 2025-08-02 22:48 | XMS_ITS | Encounter Summary ---
Author Organization [facility] Address [address] [place] [address] Care Team Providers Care Body Specialist Name Role Phone Rikki Benitez DO Primary Care Provider [phone] Reason for Referral * Outpatient Services (Routine) - Closed Specialty Diagnoses / Procedures Referred By Fernando t Referred To Contact Diagnoses Chest pain, unspecified type Preop cardiovascular exam SOB (shortness of breath) Morbid obesity with BMI of 60.0-69.9, adult (CMS/HCC) Suboptimal echocardiogram Procedures ECHO STRESS W CONTRAST PHARMACO ECHO STRESS TEST PHARMACO W DOPP AND COLOR FLOW Glenn Jefferson MD Phone: tel: fax: [facility] [place] CALL TO MAKE APPOINTMENT ONLY [address] [place] [address] Phone: tel: fax: Referral ID Status Reason Start Date Expiration Date Visits Re quested Visits Authorized [id number] Closed 09/20/2016 10/21/2017 1 1 PASTEURIZER Encounter Details Date Type Department Care Team (Latest Contact Info) Description 10/09/2016 Ancillary Orders [facility] Cardiology- [place] [address] [place] [address] Glenn Jefferson MD [address] [place] [address] Chest pain, unspecified type; Preop [...] STRESS W CONTRAST PHARMACO (10/09/2016 8:53 AM MILK PASTEURIZER) EJECTION FRACTION INTERFACE SYSTEM 10/09/2016 8:28 AM MILK PASTEURIZER Narrative INTERFACE SYSTEM - 10/09/2016 2:02 PM MILK PASTEURIZER [facility] Echocardiography-[address] [place] [address] Stress Echocardiography Dobutamine Patient: Matteo Study ECHO STRESS Ziyad ID: TEST Gender: F : 1975 Age: 41 Room: Study 10/09/2016 Pt Outpatient Date: Status: Study 08:28 AM [facility] #: [id number] Time: Ordering:Glenn Jefferson MD Interpreting:Glenn Jefferson MD Community Board Member: Yarelis Franco [facility] Indications and History: Pre-operative Cardiovascular Evaluation. Risk [...] peak heart rate and blood pressure was 03866of Hg/min. The patient experienced no chest pain [...] peak heart rate and blood pressure was 28985vh Hg/min. The patient experienced no chest pain [...] stress-induced ischemia. Technically difficult, contrast was used. [facility] are accredited with the Intersocietal Accreditation Commission - Echocardiography. Prepared and Electronically Authenticated Glenn Jefferson MD Confirmed 10/09/2016 14:02 Procedure Note Glenn Jefferson MD - 10/09/2016 [facility] Echocardiography-[place] [address] [facility] [address] [place] [address] Stress Echocardiography Dobutamine Patient: Matteo Study ECHO STRESS Ziyad ID: TEST Gender: F : 1975 Age: 41 Room: Study 10/09/2016 Pt Outpatient Date: Status: Study 08:28 AM CSN #: [id number] Time: Ordering:Glenn Jefferson MD Interpreting:Glenn Jefferson MD Community Board Member: Yarelis Franco [facility] Indications and History: Pre-operative Cardiovascular Evaluation. Risk [...] peak heart rate and blood pressure was 55999fj Hg/min. The patient experienced no chest pain [...] peak heart rate and blood pressure was 56999bx Hg/min. The patient experienced no chest pain [...] stress-induced ischemia. Technically difficult, contrast was used. [facility] are accredited with the [...] Morbid obesity with BMI of 60.0-69.9, adult (CMS/[facility]) Suboptimal echocardiogram Chest pain, unspecified type Preop cardiovascular exam Pre-operative cardiovascular examination SOB (shortness of breath) Shortness of breath Morbid obesity with BMI of 60.0-69.9, adult (CMS/HCC) Suboptimal echocardiogram documented in this encounter Care Teams Body Specialist Relationship Specialty Start Date End Date Rikki Benitez DO [address] [place] [address] PCP - General Specialist 09/02/16 documented as of this encounter
--- OUTSIDE RECORDS SUMMARY | 2025-08-02 22:48 | XMS_ITS | Clinical Summary ---
Author Organization [facility] Address [address] [facility] Attn: [place] [address] Care Team Providers Care Telephone Operators Supervisor Name Role Phone Rikki Benitez Primary Care Provider [phone] Allergies Active Allergy Reactions Criticality Noted Date [...] Encounters Date Type Department Care Team Description 07/19/2025 External Device Data STL ABSTRACTION Provider, Abstract 06/22/2025 1:20 PM CDT - 06/22/2025 11:59 PM CDT Hospital Encounter [facility] [address] [place] [id number] Hakeem Sapp MD Discharge Disposition: Home or Self Care 06/22/2025 1:19 PM CDT - 06/22/2025 11:59 PM CDT Hospital Encounter [facility] [address] [place] [phone] Hakeem Sapp MD Discharge Disposition: Home or Self Care 06/07/2025 External Device Data STL ABSTRACTION Provider, Abstract 06/06/2025 1:26 PM CDT - 06/06/2025 11:59 PM CDT Hospital Encounter [facility] Imaging Services [address] [place] [address] Jose L Dillon MD McCarter, Bradley S Discharge Disposition: Home or Self Care 06/01/2025 Orders Only [facility] [address] [place] [address] Jose L Dillon MD Morbid obesity with BMI of 60.0-69.9, adult (Primary Dx) 05/31/2025 3:00 PM CDT Office Visit [facility] Spine Multidisciplinary Pain [address] [place] [address] Nicky Quick PsyD Psychological factors affecting morbid obesity (CMS/HCC) (Primary Dx); Morbid obesity with BMI of 60.0-69.9, adult (CMS/HCC) 05/27/2025 Telephone [facility] Gastroenterology- [facility] [place] [address] [place] [address] Grace Streeter RN [facility] 05/23/2025 1:10 PM CDT Office Visit [facility] Gen Spec Surg [address] [place] [address] Jose L Dillon MD Intestinal malabsorption, unspecified type (Primary Dx); Morbid obesity with BMI of 60.0-69.9, adult ([facility]/HCC); History of sleeve gastrectomy; Gastroesophageal reflux disease, unspecified whether esophagitis present; HTN (hypertension), benign; LAURA (obstructive sleep apnea) 05/23/2025 Telephone [facility] [address] [place] [address] Jose L Dillon MD Bariatrics 05/23/2025 Orders Only [facility] [address] [place] [address] Jose L Dillon MD LAURA (obstructive sleep apnea) (Primary Dx); Obesity hypoventilation syndrome (CMS/HCC); Hypertension, unspecified type; Gastroesophageal reflux disease, unspecified whether esophagitis present; Lymphedema; Other chronic pain; Morbid obesity with BMI of 60.0-69.9, adult ([facility]/HCC) 05/18/2025 External Device Data STL ABSTRACTION Provider, [...] on file Legal Sex Female 1:24 PM TERMINAL MAKE UP 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 Pulido. Technical Editor view of the upper abdomen shows surgical [...] Direct supervision and final interpretation by Dr. Hegg. Technical Editor view of the upper abdomen shows surgical [...] Fi nal Result from Last 3 Months Insurance MEDICARE PART A AND B [place] B Care Teams Telephone Operators Supervisor Relationship Specialty Start Date End Date Rikki Benitez DO [address] [place] [address] PCP - General Specialist 09/02/16
--- OUTSIDE RECORDS SUMMARY | 2025-08-02 22:48 | XMS_ITS | Clinical Summary ---
Author Organization [facility] de Address [address] [place] [address] Phone Care Team Providers Care Mergers And Acquisitions Attorney Name Role Phone Rikki Benitez Primary Care Provider Allergies Active Allergy Reactions Criticality Noted Date Comments Amoxicillin-Pot Clavulanate Hives,Shortn ess of Breath/Wheezing High 09/02/2016 Meperidine Hives,Shortness of Breath/Wheezing High 09/02/2016 Medications bismuth subsalicylate (PEPTO-BISMOL) 262 mg/15 mL suspensionIndicatio ns:Morbid obesity with BMI of 60.0-69.9, adult ([facility]),Preop cardiovascular exam,SOB (shortness of breath) Take 30 mL by mouth every 6 hours as needed for Indigestion . Active HYDROcodone-acetami nophen (NORCO) 7.5-325 mg TabletIndications:M orbid obesity with BMI of 60.0-69.9, adult ([facility]),Preop cardiovascular exam,SOB (shortness of breath) Take 1 Tablet by mouth every 4 hours as needed for Pain, Moderate. Active gabapentin (NEURONTIN) 300 mg capsuleIndications: Morbid obesity with BMI of 60.0-69.9, adult ([facility]),Preop cardiovascular exam,SOB (shortness of breath) Take 300 mg by mouth 3 times daily. Active traZODone (DESYREL) 50 mg tabletIndications:M orbid obesity with BMI of 60.0-69.9, adult ([facility]),Preop cardiovascular exam,SOB (shortness of breath) Take 50 mg by mouth daily at bedtime. Active traMADol (ULTRAM) 50 mg tabletIndications:M orbid obesity with BMI of 60.0-69.9, adult ([facility]),Preop cardiovascular exam,SOB (shortness of breath) Take 100 mg by mouth every 4 hours as needed for Pain. Active tiZANidine (ZANAFLEX) 4 mg TabletIndications:M orbid obesity with BMI of 60.0-69.9, adult ([facility]),Preop cardiovascular exam,SOB (shortness of breath) Take [...] Comments Blood Pressure 144/79 10/09/2016 8:57 AM MAT INSPECTOR Pulse 108 10/09/2016 8:57 AM MAT INSPECTOR Temperature - - Respiratory Rate - - [...] Phone Billing Address Personal/Family Self 1975 [address] [facility] [address] [place] [address] MEDICAID [place] Care Teams Mergers And Acquisitions Attorney Relationship Specialty Start Date End Date Rikki Benitez DO [address] [place] [address] PCP - General Specialist 09/02/16
[2025-08-02 22:53] VITALS: BP 168/58; PULSE 113; RESP 18; TEMP 39.5; O2SAT 97; BMI 72.8
--- NOTE | 2025-08-02 23:02 | ECG_ITS ---
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 Measurements Intervals [place] Rate: 104 P: 34 HI: 172 QRS: 44 QRSD: 98 T: 95 QT: 312 QTc: 411 Interpretive Statements SINUS TACHYCARDIA NONSPECIFIC T-WAVE ABNORMALITY Compared to ECG 07/14/2025 11:50:50 No significant changes Electronically Signed On 08-04-2025 08:37:54 CDT by Mike Juarez M.D. [email or web address]
--- NOTE | 2025-08-02 23:03 | XRR_ITS ---
PROCEDURE INFORMATION: Exam: XR Chest Exam date and time: 08/02/2025 11:05 PM Age: 50 years old Clinical indication: Pain; Fever and shortness of breath; Angina pectoris; Additional info: Cp/sob/fever TECHNIQUE: Imaging protocol: Radiologic exam of the chest. Views: 1 view. COMPARISON: CR (CHEST, ) 07/04/2025 10:24 PM FINDINGS: Lungs: Mild interstitial prominence. Pleural spaces: Unremarkable. No pleural effusion. No pneumothorax. Heart/Mediastinum: The heart is mildly enlarged. Bones/joints: Unremarkable. XR/XR chest 1V portable [id number] IMPRESSION: 1. Mild cardiomegaly. 2. Findings suggestive of mild vascular congestion.
--- NOTE | 2025-08-02 23:11 | W.ED.FEVER ---
HPI - Fever General: Chief Complaint: Fever Stated Complaint: POSSIBLE SEPSIS Time Seen by Provider: 08/02/25 22:54 Source: patient Mode of arrival: ambulatory Limitations: no limitations History of Present Illness: Patient is a 50-year-old female with past medical history of morbid obesity, cellulitis of lower extremities, lymphedema, and recent septicemia requiring hospitalization in the ICU who presents to the emergency department by ambulance for sudden onset fever this evening. Patient states she was getting up to make something to eat when she felt ill, and had sudden onset of right flank and right abdominal pain. Also states that she has since developed nausea and vomiting, as well as shortness of breath. Patient tells me she recently nearly while in the hospital as she was maxed out on pressors, ultimately however was stable enough for discharge home. This was from 07/04 to 07/12 of this month. For her cellulitis, sees wound care and states that she takes cefadroxil for this. She sees Dr. Goodson for infectious disease. Temperature at home recorded by the patient was 100.3, however currently is 103.1 at bedside. The symptoms all began around 1800, patient tells me that she was told by her physician to go to the ED with any fevers that present. States that she is having urinary symptoms as well with dysuria. She took Tylenol prior to coming in. She has been on antibiotics in total since May. She states that she feels like she has fluid all over her, and actually notes that the wounds on her legs have actually been improving since seeing wound care. She is diaphoretic at this time, ill-appearing and in acute distress. On 1 L of oxygen. MD elicited complaint: fever Pertinent past history: sepsis Onset (ago): hour(s) Measured temperature: 100.3 F Context: recent hospitalization Associated symptoms: Reports flank pain, chills, chest pain, dysuria, nausea and vomiting; Deny abdominal pain, diarrhea or headache(s) Treatments prior to arrival fever: acetaminophen Related Data Home Medications ?Medication ?Instructions ?Recorded ?Confirmed hydrocodone 10 mg-acetaminophen 1 tab PO QID PRN pain 06/28/24 07/19/25 325 mg tablet naloxone 4 mg/actuation nasal spray 4 mg intranasal Q2M PRN Opioid 06/28/24 07/19/25 Overdose budesonide-formoterol HFA 160 2 puff inhalation BID 07/05/25 07/19/25 mcg-4.5 mcg/actuation aerosol inhaler (Breyna) losartan 100 mg tablet 100 mg PO DAILY 07/05/25 07/19/25 ondansetron HCl 4 mg tablet 4 mg PO Q8H PRN Nausea And Vomiting 07/05/25 07/19/25 pantoprazole 40 mg tablet,delayed 40 mg PO BID 07/05/25 07/19/25 release solifenacin 10 mg tablet 10 mg PO DAILY 07/05/25 07/19/25 tizanidine 4 mg tablet 4 mg PO TID PRN muscle spasms 07/05/25 07/19/25 Held on 07/12/25. Instructions: Resume on 07/25/25. hold until your finished antibiotics tramadol 100 mg tablet,extended 100 mg PO DAILY 07/05/25 07/19/25 release 24 hr trazodone 100 mg tablet 100 mg PO BEDTIME 07/05/25 07/19/25 Previous Rx's ?Medication ?Instructions ?Recorded bumetanide 2 mg tablet 2 mg PO DAILY #120 tabs 05/17/24 pregabalin 50 mg capsule 50 mg PO BID #60 caps 12/09/24 cholecalciferol (vitamin D3) 1,250 50,000 unit PO .once weekly #12 02/23/25 mcg (50,000 unit) capsule caps cefadroxil 500 mg capsule 1,000 mg (2 x 500 mg) PO Q12H PRN 03/16/25 cellulitis 7 days #28 caps amiodarone 200 mg tablet (Pacerone) See Rx Instructions .Route 07/11/25 .COMPLEX #60 tabs aspirin 81 mg tablet,delayed 81 mg PO DAILY 30 days #30 tabs 07/11/25 release potassium chloride 20 mEq 20 meq PO DAILY 30 days #30 tabs 07/12/25 tablet,extended release(part/cryst) (Klor-Con M) albuterol sulfate 90 mcg/actuation See Rx Instructions .Route 07/29/25 aerosol inhaler (Ventolin HFA) .COMPLEX #18 grams Allergies Allergy/AdvReac Type Severity Reaction Status Date / Time red dye Allergy Intermediate rash Verified 08/02/25 22:59 amoxicillin (From Augmentin) Allergy HIVES AND Verified 08/02/25 22:59 ITCHING clavulanic acid (From Allergy HIVES AND Verified 08/02/25 22:59 Augmentin) ITCHING meperidine (From Demerol) Allergy HIVES, Verified 08/02/25 22:59 ITCHING AND SHORTNESS OF BREATH Review of Systems General: Reports: 10 or more systems reviewed and unremarkable except in HPI and below Const: Reports: fever(s) and chills; Denies: fatigue Eyes: Denies: change in vision ENMT: Denies: throat pain, ear or mastoid pain or nasal discharge Card: Reports: chest pain; Denies: palpitations, swelling of feet/ankles or lightheadedness Resp: Reports: dyspnea; Denies: productive cough or wheezing GI: Reports: nausea and vomiting; Denies: abdominal pain, diarrhea or constipation : Reports: flank pain and dysuria; Denies: difficulty voiding or urinary frequency Musc: Reports: back pain; Denies: neck pain or joint pain Skin/Breast: Denies: rash Neuro: Denies: headache(s), numbness in extremities or weakness in extremities PFSH ED PFSH: Medical History Lymphedema Hypertension Morbid obesity Colon polyps Morbid obesity Venous stasis dermatitis Anasarca Cellulitis of left lower leg Acute diastolic heart failure Cellulitis Bilateral lower leg cellulitis Obesity hypoventilation syndrome Accelerated hypertension Smokes cigarettes Lower limb ulcer, ankle Lymphedema associated with obesity Polycystic ovarian syndrome Longstanding diagnosis, dating back to 2003. Has been on and off treatment for many years. LAURA (obstructive sleep apnea) Osteoarthritis of knees, bilateral Chronic low back pain with left-sided sciatica > 50% of 45 min visit counseling patient regarding weight. Encounter for long-term opiate analgesic use Current every day smoker Degeneration of intervertebral disc of cervical spine without disc herniation Arthralgia of cervical spine Surgical History S/P total abdominal hysterectomy (08/01/20) With RSO. [place] [place]hpande [place] [facility] [place], [place]. Path showed polyp with complex hyperplasia with atypia Status post hysteroscopy (~05/09/20) Hysteroscopy with dilation and curettage with Dr. Paul Deshpande at [facility] History of laparoscopic cholecystectomy (~1993) History of D&C (~09/2003) History of laparoscopy (09/21/18) Dx: Small bowel obstruction. Lysis of adhesions. Per[place] by [place]. Yee [place] [facility]. History of left salpingo-oophorectomy (01/15/06) Laparotomy. Per[place] by [place]. Lovelace at [facility]. 10 cm left adnexal cystic mass. History of bariatric surgery (~2016) Laparoscopic gastric sleeve. H/O bariatric surgery (09/14/12) Laparoscopic band. H/O section 12/21/1991, 12/14/1993, 04/17/1995. Family History Father Diabetes Hypertension Social History Smoking and tobacco/nicotine status: former use of tobacco/nicotine Alcohol intake: never Substance/Drug Use: never Physical Exam Const: COMMON NORMALS: patient oriented x3 and alert NUTRITIONAL APPEARANCE: obese (BMI 72.9) morbidly obese ORIENTATION/CONSCIOUSNESS: Yes awake OTHER: Ill-appearing, diaphoretic HENMT: COMMON NORMALS: normocephalic and atraumatic HEAD & SCALP: normocephalic and atraumatic Eye: COMMON NORMALS: EOMs intact bilaterally and conjunctivae normal CONJUNCTIVA: Yes conjunctivae normal Neck/C-Spine: COMMON NORMALS: full ROM Resp: EFFORT & INSPECTION: Yes tachypneic OTHER: Auscultation limited secondary to body habitus though there is no audible wheezing or adventitious lung sounds appreciated at this time, but there are diminished lung sounds throughout. Speaking in choppy sentences Cardio: COMMON NORMALS: regular rhythm, No gallops present (Cardio), No murmurs present (Cardio) and No rub (Cardio) RATE: tachycardic RHYTHM: regular rhythm GI: INSPECTION: Yes central obesity OTHER: Very large abdomen. Tender to palpation to right upper quadrant : OTHER: Unable to assess the CVA tenderness due to her body habitus Back/Pelvis: OTHER: Back exam limited secondary to body habitus Extremity: NARRATIVE EXTREMITY EXAM: Severe bilateral lymphedema with overlying cellulitic changes, bandages in place at this time Neuro: COMMON NORMALS: patient oriented x3, moves all extremities, no focal motor deficits and no sensory deficits noted SENSORIUM/ORIENTATION: Yes alert Course Vital Signs: Vital signs: Vital Signs Temperature 103.1 F H 08/03/25 00:00 Pulse Rate 105 H 08/03/25 00:00 Respiratory Rate 18 08/03/25 00:00 Blood Pressure 146/59 08/03/25 00:00 Pulse Oximetry 97 08/03/25 00:00 Oxygen Delivery Me thod Nasal Cannula 08/02/25 22:53 Oxygen Flow Rate 1 08/02/25 22:53 MDM - Fever Medical Decision Making This patient presented by ambulance, chronically ill-appearing and morbidly obese, in the hospital earlier this month on pressors due to being septic. Fevers onset tonight with nausea vomiting, shortness of breath, and malaise. Tachycardic and febrile on arrival temp 103.1, she is given Tylenol. Leukocytosis on labs with left shift, elevation in lactic acid. Urinalysis and rest of lab work appearing unremarkable. Chest x-ray normal. She has chronic bilateral cellulitis and lymphedema, suspect that her source of sepsis is dermatologic and reviewing prior wound cultures appears that she is susceptible to vancomycin so this is empirically started following obtaining blood cultures. Also started on sepsis fluid management, and spoke to Dr. Babb, hospitalist, who is excepted patient to the ICU for further management. Dr. Husain putting in admit orders at this time. Lab Data 08/02/25 23:30 08/02/25 23:30 Radiology Impressions Chest X-Ray 08/02/25 23:03 IMPRESSION: 1. Mild cardiomegaly. 2. Findings suggestive of mild vascular congestion. Laboratory Results WBC 15.18 10^3/uL (3.29-11.43) H 08/02/25 23:30 RBC 3.41 10^6/uL (3.85-5.65) L 08/02/25 23:30 Hgb 9.10 g/dL (11.27-16.99) L 08/02/25 23: Hct 29.5 % (36-47) L 08/02/25 23: MCV 86.5 fl (85-98) 08/02/25 23: MCH 26.7 pg (27-33) L 08/02/25 23: MCHC 30.8 g/dL (30-55) 08/02/25 23:30 RDW 16.7 % (12.1-15.1) H 08/02/25 23:30 Plt Count 125 10^3/cmm (157-399) L 08/02/25 23: MPV 10.0 fL (7.4-10.4) 08/02/25 23:30 Neut % (Auto) 91.4 % 08/02/25 23:30 Lymph % (Auto) 3.5 % 08/02/25 23:30 [place] % (Auto) 3.7 % 08/02/25 23: Eos % (Auto) 0.7 % 08/02/25 23: Baso % (Auto) 0.1 % 08/02/25 23: Neut # (Auto) 13.88 10^3/uL (1.8-7.7) H 08/02/25 23:30 Lymph # (Auto) 0.5 10^3/uL (0.8-4.8) L 08/02/25 23: [place] # (Auto) 0.6 10^3/uL (0.2-0.9) 08/02/25 23:30 Eos # (Auto) 0.1 10^3/uL (0.0-0.8) 08/02/25 23: Baso # (Auto) 0.0 10^3/uL (0.0-0.1) 08/02/25 23: Nucleated RBC % (auto) 0 % 08/02/25 23: Nucleated RBCs # 0.0 /100WBC 08/02/25 23:30 Specimen Type Arterial 08/02/25 23:35 Sample Site Brachial, right 08/02/25 23:35 ABG pH 7.45 (7.35-7.45) 08/02/25 23:35 ABG pCO2 39.6 mmHg (35-45) 08/02/25 23:35 ABG pO2 52.4 mmHg (80.0-100.0) L 08/02/25 23:35 ABG HCO3 27.4 mmol/L (22-26) H 08/02/25 23:35 ABG O2 Saturation 89.5 08/02/25 23:35 ABG Base Excess 3.1 mmol/L (-2.0-2.0) H 08/02/25 23:35 Gavin Test N/a 08/02/25 23:35 A-a O2 Gradient 6.3 mmHg (5-10) 08/02/25 23:35 Hematocrit 29.8 % (37-47) L 08/02/25 23:35 Hgb O2 Saturation 87.9 % (95-100) L 08/02/25 23:35 Carboxyhemoglobin 1.3 %THgb (0.4-20.1) 08/02/25 23:35 Methemoglobin 0.4 % (0.4-1.5) 08/02/25 23:35 Total Hemoglobin 9.7 g/dL (12-16) L 08/02/25 23:35 Sodium 142.0 mmol/L (131-143) 08/02/25 23:35 Potassium 3.8 mmol/L (3.5-5.0) 08/02/25 23:35 Glucose 132.0 mg/dL (70-115) H 08/02/25 23:35 Ionized Calcium 1.1 mmol/L (1.1-1.4) 08/02/25 23:35 O2 Delivery Device Nc 08/02/25 23:35 O2 Liters/Min 1.0 % 08/02/25 23:35 Naphthalene Operator ID [email or web address] 08/02/25 23:35 Sodium 141 mmol/L (136-145) 08/02/25 23:30 Potassium 4.2 mmol/L (3.5-5.1) 08/02/25 23:30 Chloride 103 mmol/L (98-107) 08/02/25 23:30 Carbon Dioxide 25 mmol/L (22-29) 08/02/25 23:30 Anion Gap 17.2 (5-19) 08/02/25 23:30 BUN 11 mg/dL (6-20) 08/02/25 23:30 Creatinine 0.8 mg/dL (0.5-0.9) 08/02/25 23:30 GFR Calculation 75.3 mL/min (90-130) L 08/02/25 23:30 Glucose 139 mg/dL (65-115) H 08/02/25 23:30 Calculated Osmolality 294 mOsm/kg (285-295) 08/02/25 23:30 Lactic Acid 2.5 mmol/L (0.5-2.2) H 08/02/25 23:30 Calcium 8.3 mg/dL (8.5-10.5) L 08/02/25 23:30 Total Bilirubin 0.4 mg/dL (0.15-1.2) 08/02/25 23:30 AST 19 U/L (0-32) 08/02/25 23:30 ALT 19 U/L (0-33) 08/02/25 23:30 Alkaline Phosphatase 59 U/L (35-105) 08/02/25 23:30 Troponin T Baseline 17 ng/L (0-10) H 08/02/25 23:30 NT-Pro-B Natriuret Pep 914 pg/mL (0-125) H 08/02/25 23:30 Total Protein 6.9 g/dL (6.6-8.7) 08/02/25 23:30 Albumin 3.4 g/dL (3.5-5.2) L 08/02/25 23:30 Globulin 3.5 g/dL (1.3-4.6) 08/02/25 23:30 Urine Color Yellow (Yellow) 08/02/25 23:57 Urine Appearance Clear (CLEAR) 08/02/25 23:57 Urine pH 5.5 (5-7) 08/02/25 23:57 Ur Specific [place] 1.020 (1.005-1.030) 08/02/25 23:57 Urine Protein 1+ (Negative) A 08/02/25 23:57 Urine Glucose (UA) Negative (Normal) 08/02/25 23:57 Urine Ketones Negative (Negative) 08/02/25 23:57 Urine Blood Negative (Negative) 08/02/25 23:57 Urine Nitrate Negative (Negative) 08/02/25 23:57 Urine Bilirubin Negative (Negative) 08/02/25 23:57 Urine Urobilinogen 1.0 mg/dL (Negative) 08/02/25 23:57 Ur Leukocyte Esterase Negative (Negative) 08/02/25 23:57 Urine RBC None /hpf (0-2) 08/02/25 23:57 Urine WBC None /hpf (0-5) 08/02/25 23:57 Ur Squamous Epith Cells None /hpf (0-5) 08/02/25 23:57 Amorphous Sediment Not Reportable 08/02/25 23:57 Urine Bacteria None /hpf (NONE) 08/02/25 23:57 Influenza A (PCR) Negative (Negative) 08/02/25 23:19 Influenza Type B (PCR) Negative (Negative) 08/02/25 23:19 RSV (PCR) Negative (Negative) 08/02/25 23:19 SARS-CoV-2 (PCR) Negative (Negative) 08/02/25 23:19 All radiology interpretation(s) finalized by discharge Discharge Plan Discharge Patient Disposition: Admitted As Inpatient Clinical Impression: Septicemia, Bilateral cellulitis of lower leg Condition: Stable Coding Level of Care Code ED Senior Accounts Payable Clerk for Jojo Marino
[2025-08-02] MEDS: SODIUM CHLORIDE 0.9% 2124 ML IV (23:19)
[2025-08-02 23:32] VITALS: BP 174/63; PULSE 110; RESP 20; O2SAT 94
[2025-08-02 23:45] LABS: Hematocrit 29.5 % (36-47); Hemoglobin 9.10 g/dL (11.27-16.99); Mean Corpuscular HGB Conc 30.8 g/dL (30-55); Mean Corpuscular Hemoglobin 26.7 pg (27-33); Mean Corpuscular Volume 86.5 fl (85-98); Nucleated Red Blood Cells % 0 %; Platelet Count 125 10^3/cmm (157-399); Red Blood Count 3.41 10^6/uL (3.85-5.65); White Blood Count 15.18 10^3/uL (3.29-11.43)
[2025-08-02 23:46] LABS: ABG PCO2 39.6 mmHg (35-45); ABG PH Result 7.45 (7.35-7.45); Alveolar-Arterial Oxygen Gradi 6.3 mmHg (5-10); Arterial Blood Gas Hematocrit 29.8 % (37-47); Blood Gas LPM 1.0 %; Blood Gas Sample Site Brachial, right; Blood Gas Sample Type Arterial; Carboxyhemoglobin 1.3 %THgb (0.4-20.1); Glucose Level-ABG 132.0 mg/dL (70-115); HCO3 ABG 27.4 mmol/L (22-26); Ionized Calcium Level - ABG 1.1 mmol/L (1.1-1.4); Methemoglobin 0.4 % (0.4-1.5); Oxygen Saturation ABG 89.5; PO2 ABG 52.4 mmHg (80.0-100.0); Potassium Level - ABG 3.8 mmol/L (3.5-5.0); Sodium Level - ABG 142.0 mmol/L (131-143)
[2025-08-03] VITALS (112 sets, daily range): BP systolic 113–177; BP diastolic 50–80; PULSE 75–110; RESP 13–38; TEMP 37–39.5; O2SAT 90–100
[2025-08-03 00:08] LABS: Lactic Sepsis W/Reflex 2.5 mmol/L (0.5-2.2)
[2025-08-03 00:09] LABS: Troponin(5th) Baseline 17 ng/L (0-10)
[2025-08-03 00:14] LABS: Respiratory Syncytial Virus Ce NEGATIVE (Negative); SARS-CoV-2 PCR NEGATIVE (Negative)
[2025-08-03] MEDS: ondansetron 2 mg/ML SDV 2 mL 4 MG IVP (00:14)
[2025-08-03] MEDS: morphine 4 mg/mL SDV 1 mL IVP (00:14)
[2025-08-03 00:15] LABS: Glucose Urine UA Negative (Normal); Nitrate Urine Negative (Negative); Specific Gravity, Urine 1.020 (1.005-1.030)
[2025-08-03 00:16] LABS: UA Slide Review UA Slide Review Perf
[2025-08-03 00:17] LABS: Add Urine Microscopic? YES
[2025-08-03 00:18] LABS: Alanine Aminotransferase 19 U/L (0-33); Albumin Level 3.4 g/dL (3.5-5.2); Alkaline Phosphatase 59 U/L (35-105); Aspartate Amino Transferase 19 U/L (0-32); Blood Urea Nitrogen 11 mg/dL (6-20); Calcium 8.3 mg/dL (8.5-10.5); Carbon Dioxide 25 mmol/L (22-29); Chloride 103 mmol/L (98-107); Creatinine Clr Calc Pharmacy 178.3216; Globulin 3.5 g/dL (1.3-4.6); Glucose 139 mg/dL (65-115); NT Pro B Type Natriuretic Pept 914 pg/mL (0-125); Osmolality Calculated 294 mOsm/kg (285-295); Sodium 141 mmol/L (136-145); Total Protein 6.9 g/dL (6.6-8.7)
[2025-08-03 00:20] LABS: Anion Gap 17.2 (5-19); Potassium 4.2 mmol/L (3.5-5.1)
--- NOTE | 2025-08-03 00:50 | P.HP_ITS ---
Providers/Chief Complaint 2 Admitting Physician: Miguel Babb Primary Care Provider: ANDRES Hernandez Chief Complaint: POSSIBLE SEPSIS History of Present Illness As per the previous notes and the patient Ziyad Felipe is a 50 year old female with morbid obesity, chronic lower leg extremity edema with features of cellulitis, past history of sepsis and septic shock recently discharged from ICU on 07/12/2025, cystitis, hospital course complicated by atrial fibrillation with RVR that required diuresis and amiodarone and discharged on amiodarone 200 mg daily and aspirin 81 mg daily for atrial fibrillation based on her risk and benefits for anticoagulation came with high-grade fever from home. The patient reported that she had underwent wound care and scraping of her wounds on the left leg on Friday and later on in the night she spiked fever associated with chills. She was feeling mildly nauseous but did not vomit. 1 episode of diarrhea without any blood or foul-smelling stools. And was having feeling of palpitations. Mild chest tenderness, headache with palpitations that was ongoing with fever and chills, but no pressure dizziness syncope or presyncope like feelings or any diaphoresis. Patient also reported having burning micturition and mild cloudiness of the urine. She did not report any increase in the lower leg swellings. No orthopnea or PND. Review of Systems 2 General: Reports: 10 or more systems reviewed and unremarkable except in HPI and below Medications/Allergies Home Medications ?Medication ?Instructions ?Recorded ?Confirmed ?Last Taken ?Type bumetanide 2 mg tablet 2 mg PO DAILY #120 tabs 05/0308/03/25 07/12/24 Rx hydrocodone 10 mg-acetaminophen 1 tab PO QID PRN pain 06/28/24 08/03/25 07/04/25 History 325 mg tablet cholecalciferol (vitamin D3) 1,250 50,000 unit PO .onc e weekly #12 02/23/25 08/03/25 Unknown Rx mcg (50,000 unit) capsule caps cefadroxil 500 mg capsule 1,000 mg (2 x 500 mg) PO Q12 H PRN 03/16/25 08/03/25 Unknown Rx cellulitis 7 days #28 caps budesonide-formoterol HFA 160 2 puff inhalation BID 08/03/25 07/04/25 History mcg-4.5 mcg/actuation aerosol inhaler (Breyna) tramadol 100 mg tablet,extended 100 mg PO DAILY 08/03/25 Unknown History release 24 hr trazodone 100 mg tablet 100 mg PO BEDTIME 07/05/25 1 07/04/25 History amiodarone 200 mg tablet (Pacerone) See Rx Instruction s .Route 07/11/25 08/03/25 Unknown Rx .COMPLEX #60 tabs aspirin 81 mg tablet,delayed 81 mg PO DAILY 30 days #3 0 tabs 07/11/25 08/03/25 Unknown Rx release potassium chloride 20 mEq 20 meq PO DAILY 30 days #30 tabs 07/12/25 08/03/25 Unknown Rx tablet,extended release(part/cryst) (Klor-Con M) albuterol sulfate 90 mcg/actuation See Rx Instructions .Route 07/29/25 08/03/25 Unknown Rx aerosol inhaler (Ventolin HFA) .COMPLEX #18 grams Allergies Allergy/AdvReac Type Severity Reaction Status Date / Time red dye Allergy Intermediate rash Verified 08/02/25 22:59 amoxicillin (From Augmentin) Allergy HIVES AND Verified 08/02/25 22:59 ITCHING clavulanic acid (From Allergy HIVES AND Verified 08/02/25 22:59 Augmentin) ITCHING meperidine (From Demerol) Allergy HIVES, Verified 08/02/25 22:59 ITCHING AND SHORTNESS OF BREATH PFSH Acute 2 PFSH: Medical History (Updated 08/03/25 @ 06:20 by Miguel Babb MD) Lymphedema Hypertension Morbid obesity Colon polyps Morbid obesity Venous stasis dermatitis Anasarca Cellulitis of left lower leg Acute diastolic heart failure Cellulitis Bilateral lower leg cellulitis Obesity hypoventilation syndrome Accelerated hypertension Smokes cigarettes Lower limb ulcer, ankle Lymphedema associated with obesity Polycystic ovarian syndrome Longstanding diagnosis, dating back to 2003. Has been on and off treatment for many years. LAURA (obstructive sleep apnea) Osteoarthritis of knees, bilateral Chronic low back pain with left-sided sciatica > 50% of 45 min visit counseling patient regarding weight. Encounter for long-term opiate analgesic use Current every day smoker Degeneration of intervertebral disc of cervical spine without disc herniation Arthralgia of cervical spine Surgical History S/P total abdominal hysterectomy (08/01/20) With RSO. Performed by Dr. Deshpande at [facility] in [place], [place]. Path showed polyp with complex hyperplasia with atypia Status post hysteroscopy (~05/09/20) Hysteroscopy with dilation and curettage with Dr. Paul Deshpande at [facility] History of laparoscopic cholecystectomy (~1993) History of D&C (~09/2003) History of laparoscopy (09/21/18) Dx: Small bowel obstruction. Lysis of adhesions. Performed by Dr. Yee at [facility]. History of left salpingo-oophorectomy (01/15/06) Laparotomy. Performed by Dr. Lovelace at [facility]. 10 cm left adnexal cystic mass. History of bariatric surgery (~2016) Laparoscopic gastric sleeve. H/O bariatric surgery (09/14/12) Laparoscopic band. H/O section 12/21/1991, 12/14/1993, 04/17/1995. Family History Father Diabetes Hypertension Social History Smoking and tobacco/nicotine status: former use of tobacco/nicotine Alcohol intake: never Substance/Drug Use: never Vitals/I&O/Wt Last Vital Signs Temp 102.8 F H 08/03/25 00:40 Pulse 110 H 08/03/25 00:30 Resp 18 08/03/25 00:30 BP 142/52 08/03/25 00:30 Pulse Ox 92 08/03/25 00:30 O2 Del Method Nasal Cannula 08/02/25 22:53 O2 Flow Rate 1 08/02/25 22:53 08/02/25 08/02/25 08/03/25 14:59 22:59 06:59 Intake Total 450 / 450 2124 / 2574 Balance 450 / 450 2124 / 2574 Weight last 48 hrs Weight 237.093 kg Physical Exam 2 Narrative: General: Alert and oriented, lying with mild distress due to fever, no shortness of breath and able to speak in full sentences [The exam is limited due to morbid obesity] HEENT: Normocephalic, atraumatic, grossly unremarkable exam Cardio: normal rate rhythm, normal S1-S2 without any murmurs, could not appreciate JVD due to thick neck and cannot comment on murmurs around the axilla on lateral chest wall due to morbid obesity Respiratory: normal vascular breathing on auscultation without any wheezes, stridor, rhonchi however there is auscultation is limited because of morbid obesity and only limited exam to ectasis lateral chest and mid chest wall GI: Abdomen soft, nontender, nondistended, normoactive bowel sounds present all 4 quadrants, Neuro: intact cranial nerves motor and sensory and cerebellar/coordination function without any focal neurological deficit Behavior: Appropriate and cooperative Extremities: Patient having bilateral lymphedema more on the left leg with compression bandages and skin redness. Urinary Catheter Management: Brumfield: Cath Placed During This Visit: yes Urinary Catheter Date of Insertion: 08/03/25 Urinary Catheter Time of Insertion: 00:00 Data 08/02/25 23:30 08/02/25 23:30 Micro: Microbiology 08/02/25 23:35 Blood Culture - Preliminary Blood SPECIMEN COLLECTED 08/02/25 23:30 Blood Culture - Preliminary Blood SPECIMEN COLLECTED A&P Assessment and plan 1. Septicemia: Patient underwent scraping of the left leg for wound care and later had fever possible cellulitis. Patient also reported symptoms of UTI however UA was not suggestive ceftriaxone 1 g daily patient has severe sepsis with fluid responsiveness, therefore continue adequate hydration with Ringer lactate 150 mL/h, however to reassess for any fluid overload signs and to hold accordingly Mild troponin leak but not significant possible underlying sepsis Follow blood cultures and urine cultures Wound cultures requested from the cellulitis of the lower extremities Follow lactate MRSA to follow, patient received 1 dose of vancomycin 2 g in the ER and based on results to decide upon vancomycin 2. Bilateral cellulitis of lower leg: Continue ceftriaxone 1 g daily Wound care requested 3. Thrombocytopenia: Patient had a drop of more than 50% platelets in the last 30 days Hold heparin or any related products HIT study sent with platelet antibody and serotonin assay and to follow results Mechanical prophylaxis with SCDs requested Bed turning every 2 hour OT PT for adequate mobility of the patient as inpatient 4. CHF (congestive heart failure): Echo on 07/06/2025 showed ejection fraction of 58% with moderate left-ventricular hypertrophy with diastolic dysfunction. Negative for any symptoms of fluid overload since the patient is on fluids 5. Atrial fibrillation with rapid ventricular response: Continue amiodarone 200 mg daily Heart rate controlled 6. Lymphedema: As mentioned above 7. Hypertension: Hold any antihypertensives or blood lowering medications at the moment 8. Anxiety and depression: Continue trazodone 100 mg daily at bedtime 9. Morbid obesity: To be managed outpatient with adequate OT PT and diet management 10. GERD without esophagitis: PPI daily PDMP PDMP Reviewed: Not Reviewed Attestations 2 Medical Necessity Statement*: Patient will stay more than 2 midnights for the management of her severe sepsis Time Spent in Patient Care: 16 - 35 minutes (>than 50% of time sp ent in counselling and/or direct pt care on unit) . Other Attestations: Patient condition has been discussed at length with the patient/family, I have independently reviewed the chart labs imaging/diagnostics/EKG. the goals of care and code status with the patient/family/NOK/legal technical account representative, and documented accordingly. The patient/family has been informed about the current condition and further plan of care. Agreed with the plan of care and understood without any language barrier. Every effort was made to ensure accuracy of manager behavior. Any obvious errors or omissions should be clarified with the author of the document. Coding Level of Care Code Critical Care >/= 30 minutes Diagnoses Septicemia A41.9 Bilateral cellulitis of lower leg L03.116; L03.115 Thrombocytopenia D69.6 CHF (congestive heart failure) I50.9 Atrial fibrillation with rapid ventricular response I48.91 Lymphedema I89.0 Hypertension I10 Anxiety and depression F41.9; F32.A Morbid obesity E66.01 GERD without esophagitis K21.9
--- NOTE | 2025-08-03 01:02 | ECG_ITS ---
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 Measurements Intervals [place] Rate: 100 P: 33 MA: 166 QRS: 35 QRSD: 96 T: 59 QT: 347 QTc: 448 Interpretive Statements SINUS TACHYCARDIA Compared to ECG 08/02/2025 23:59:37 T-wave abnormality no longer present Electronically Signed On 08-04-2025 09:00:15 CDT by Mike Juarez M.D. [email or web address] [id number]
[2025-08-03 01:29] LABS: Reflex Lactate Order REFLEX LACTIC ORDERD
[2025-08-03 02:05] LABS: Troponin 5 2HR 23.26 ng/L (0-10); Troponin 5 2HR Delta 6.26 ABS# (0-10)
[2025-08-03] MEDS: pantoprazole 40 mg SDV IVP (04:24)
[2025-08-03 04:38] LABS: Lactic Acid level (Lactate) 2.0 mmol/L (0.5-2.2)
[2025-08-03 05:37] LABS: Troponin 5 6HR 23.88 ng/L (0-10); Troponin 5 6HR Delta 6.88 ng/L (0-12)
[2025-08-03] MEDS: cefTRIAXone 1,000 mg SDV 1000 MG IVP (06:28)
[2025-08-03 06:45] LABS: Lactate (Lactic Acid level) 1.4 mmol/L (0.5-2.2)
--- NOTE | 2025-08-03 07:19 | PHA.VACGOAL ---
Vancomycin Goal - Goal Vancomycin Goal:: 15-20 mg/L Vancomycin Indication:: Other - Therapy Current therapy:: Other Antibiotic (CEFTRIAXONE) Day of therpy:: Day []of [] . Actual body weight (kg): 538 lb - Data Labs: WBC 15.18 10^3/uL (3.29-11.43) H 08/02/25 23:30 RBC 3.41 10^6/uL (3.85-5.65) L 08/02/25 23:30 Hgb 9.10 g/dL (11.27-16.99) L 08/02/25 23:30 Hct 29.5 % (36-47) L 08/02/25 23:30 MCV 86.5 fl (85-98) 08/02/25 23: MCH 26.7 pg (27-33) L 08/02/25 23:30 MCHC 30.8 g/dL (30-55) 08/02/25 23:30 RDW 16.7 % (12.1-15.1) H 08/02/25 23:30 Sodium 141 mmol/L (136-145) 08/02/25 23:30 Potassium 4.2 mmol/L (3.5-5.1) 08/02/25 23:30 Chloride 103 mmol/L (98-107) 08/02/25 23:30 Carbon Dioxide 25 mmol/L (22-29) 08/02/25 23:30 Anion Gap 17.2 (5-19) 08/02/25 23:30 BUN 11 mg/dL (6-20) 08/02/25 23:30 Creatinine 0.8 mg/dL (0.5-0.9) 08/02/25 23:30 GFR Calculation 75.3 mL/min (90-130) L 08/02/25 23:30 Last dialysis session:: N/A Treatment plan:: new consult Regimen:: LOADING DOSE OF 2000 MG X 1 MAINTENANCE DOSE OF 1500 MG Q8H PER DOSING PROTOCOL Follow up:: WILL CONTINUE TO MONITOR AND FOLLOW UP DAILY
[2025-08-03 09:22] LABS: MRSA PCR OZH (swab) NOT DETECTED (Not Detecte)
--- NOTE | 2025-08-03 11:42 | ECG_ITS ---
[facility] Test Date: 2025-08-03 Pat Name: Ziyad Felipe Department: Room: [facility] Gender: Female Inventory Worker: : 1975 Requested By: George Bonner Order Number: [id number] Conor MD: Mike Juarez M.D. Measurements Intervals [place] Rate: 79 P: 0 IN: 0 QRS: 40 QRSD: 91 T: 59 QT: 393 QTc: 451 Interpretive Statements SINUS RHYTHM Compared to ECG 08/03/2025 03:37:06 Sinus tachycardia no longer present Electronically Signed On 08-04-2025 08:59:52 CDT by Mike Juarez M.D. [email or web address] [id number]
--- NOTE | 2025-08-03 16:31 | P.PN_ITS ---
Subjective 2 Subjective: 50-year-old morbidly obese fem godwin comes in with left leg cellulitis and sepsis. Chest x-ray and UA were negative. Patient states that her leg has been chronically infected for about 2 years. She has been trying to lose weight to have gastric bypass. She has lost 60 pounds since February counting calories and eating less than 1500 a day. She says she is only been over 2000 twice. At bedside currently she has sugared Sprite 150 zayra and a bag of chips 110 and its plate delays that she has not eaten Patient states she has sleep apnea but does not wear her CPAP Vitals/I&O/Wt Last Vital Signs Temp 98.6 F 08/03/25 06:10 Pulse 81 08/03/25 14:45 Resp 20 H 08/03/25 14:45 BP 144/64 08/03/25 14:45 Pulse Ox 97 08/03/25 14:45 O2 Del Method Nasal Cannula 08/03/25 06:10 O2 Flow Rate 3 08/03/25 06:10 08/03/25 08/03/25 08/03/25 06:59 14:59 22:59 Intake Total 2524 / 2974 1530 / 1530 Output Total 375 / 375 Balance 2149 / 2599 1530 / 1530 Weight last 48 hrs Weight 244.033 kg Weight 244.033 kg Weight 240.858 kg Weight 237.093 kg Physical Exam 2 Narrative: General well-developed morbidly obese female in no acute cardiopulmonary stress CV regular rate and rhythm Lungs clear to auscultation on anterior exam Abdomen obese soft Calves large with chronic venous stasis changes 3+ edema see image the left leg that is infected this is below the knee with left lateral leg erythema consistent with cellulitis Oropharynx Mallampati 1 Extremity: NARRATIVE EXTREMITY EXAM: Urinary Catheter Management: Brumfield: Cath Placed During This Visit: yes Reason for Continuing Indwelling Catheter: Accurate Measurement of Urinary Output in Critically Ill Patients Urinary Catheter Date of Insertion: 08/03/25 Urinary Catheter Time of Insertion: 00:00 Data 08/02/25 23:30 08/02/25 23:30 Micro: Microbiology 08/02/25 23:35 Blood Culture - Preliminary Blood SPECIMEN COLLECTED 08/02/25 23:30 Blood Culture - Preliminary Blood SPECIMEN COLLECTED A&P Assessment and plan 1. Septicemia: Patient underwent scraping of the left leg for wound care and later had fever possible cellulitis. Chest x-ray and UA were negative Follow blood cultures and urine cultures Wound cultures requested from the cellulitis of the lower extremities Follow lactate MRSA to follow, patient received 1 dose of vancomycin 2 g in the ER and based on results to decide upon vancomycin 2. Bilateral cellulitis of lower leg: Continue ceftriaxone 1 g daily and vancomycin Wound care requested. This may well be staph as it is chronically infected. Continue vancomycin as well blood cultures have been done 3. Thrombocytopenia: Patient had a drop of more than 50% platelets in the last 30 days Hold heparin or any related products HIT study sent with platelet antibody and serotonin assay and to follow results Mechanical prophylaxis with SCDs requested Bed turning every 2 hour OT PT for adequate mobility of the patient as inpatient Recheck platelet count in the morning. Patient is at high risk of DVT 4. CHF (congestive heart failure): Echo on 07/06/2025 showed ejection fraction of 58% with moderate left-ventricular hypertrophy with diastolic dysfunction. Negative for any symptoms of fluid overload since the patient is on fluids 5. Atrial fibrillation with rapid ventricular response: Continue amiodarone 200 mg daily Heart rate controlled and is currently sinus rhythm at 78 6. Lymphedema: As mentioned above. Start BiPAP and diuresis 7. Primary hypertension: Hold any antihypertensives or blood lowering medications at the moment 8. Anxiety and depression: Continue trazodone 100 mg daily at bedtime 9. Morbid obesity: To be managed outpatient with adequate OT PT and diet management 2000-calorie weight loss diet no sweets desserts caloric drinks Patient was counseled regarding her success at weight loss 60 pounds in 5 months. Continue with calorie counting and weight loss consider GLP-1 if unable to follow diet. Gastric bypass surgery if above measures not successful 10. GERD without esophagitis: PPI daily PDMP PDMP Reviewed: Not Reviewed Attestations 2 Medical Necessity Statement*: Patient will require 2 additional midnights or more for treatment of sepsis and cellulitis Coding Level of Care Code 79330 Diagnoses Septicemia A41.9 Bilateral cellulitis of lower leg L03.116; L03.115 Thrombocytopenia D69.6 CHF (congestive heart failure) I50.9 Atrial fibrillation with rapid ventricular response I48.91 Lymphedema I89.0 Primary hypertension I10 Hypertension type: primary hypertension Anxiety and depression F41.9; F32.A Morbid obesity E66.01 GERD without esophagitis K21.9 Time Spent (min) 35
[2025-08-03] MEDS: FUROsemide 10 mg/mL SDV 2mL 20 MG IVP (17:02)
[2025-08-03] MEDS: cefTRIAXone 2,000 mg SDV 2000 MG IVP (17:02)
[2025-08-03] MEDS: oxyCODONE 5 mg IR Tab/Cap PO (19:06)
[2025-08-04] VITALS (36 sets, daily range): BP systolic 110–177; BP diastolic 48–118; PULSE 71–114; RESP 15–36; TEMP 36.4–38.5; O2SAT 89–100
[2025-08-04] MEDS: pantoprazole 40 mg SDV IVP (04:28)
[2025-08-04] MEDS: FUROsemide 10 mg/mL SDV 2mL 20 MG IVP ×2 (04:28→16:53)
[2025-08-04] MEDS: oxyCODONE 5 mg IR Tab/Cap PO ×3 (04:41→21:38)
[2025-08-04 07:19] LABS: Hematocrit 26.7 % (36-47); Hemoglobin 8.00 g/dL (11.27-16.99); Mean Corpuscular HGB Conc 30.0 g/dL (30-55); Mean Corpuscular Hemoglobin 26.8 pg (27-33); Mean Corpuscular Volume 89.3 fl (85-98); Nucleated Red Blood Cells % 0 %; Platelet Count 119 10^3/cmm (157-399); Red Blood Count 2.99 10^6/uL (3.85-5.65); White Blood Count 9.00 10^3/uL (3.29-11.43)
[2025-08-04 07:36] LABS: Anion Gap 12.4 (5-19); Blood Urea Nitrogen 11 mg/dL (6-20); Calcium 7.7 mg/dL (8.5-10.5); Carbon Dioxide 27 mmol/L (22-29); Chloride 102 mmol/L (98-107); Creatinine Clr Calc Pharmacy 180.7485; Glucose 104 mg/dL (65-115); Magnesium 1.5 mg/dL (1.7-2.3); Osmolality Calculated 286 mOsm/kg (285-295); Potassium 3.4 mmol/L (3.5-5.1); Sodium 138 mmol/L (136-145)
[2025-08-04 08:15] LABS: Slide Review Slide Review Perform
[2025-08-04] MEDS: magnesium sulfate premix 2 GM/50 ML PIGGYBACK IV (11:10)
[2025-08-04] MEDS: ondansetron 2 mg/ML SDV 2 mL 4 MG IVP (13:20)
--- NOTE | 2025-08-04 14:48 | P.PN_ITS ---
Subjective 2 Subjective: 50-year-old morbidly obese fem godwin comes in with left leg cellulitis and sepsis. Patient is complaining of burning scalp and temples today. She states this happened with her last admission July 05 as well. Nothing was really determined and it took 2 or 3 days for it to go away. She reports having migraines in the past but reports that as throbbing headache this is more burning sensation of the scalp. She is on Lyrica and when she has missed that before for a month she did not have burning scalp. She has taken vancomycin before and not had a problem Patient denies visual changes with her headache Vitals/I&O/Wt Last Vital Signs Temp 98.9 F 08/04/25 11:00 Pulse 78 08/04/25 12:00 Resp 22 H 08/04/25 13:16 BP 152/75 08/04/25 12:00 Pulse Ox 98 08/04/25 13:16 O2 Del Method Nasal Cannula 08/04/25 07:52 O2 Flow Rate 2 08/04/25 07:52 FiO2 32 08/04/25 03:27 08/03/25 08/04/25 08/04/25 22:59 06:59 14:59 Intake Total 1600 / 3430 300 / 3730 300 / 300 Output Total 3100 / 3100 1950 / 5050 Balance -1500 / 330 -1650 / -1320 300 / 300 Weight last 48 hrs Weight 241.765 kg Weight 244.033 kg Weight 244.033 kg Weight 240.858 kg Weight 237.093 kg Physical Exam 2 Narrative: General well-developed morbidly obese female in no acute cardiopulmonary stress CV regular rate and rhythm Lungs clear to auscultation on anterior exam. I am unable to examine the bases Abdomen obese soft. There is some blood from the bellybutton Calves large with chronic venous stasis changes 2+ to 3 edema Headache exam posterior scalp occiput not tender. She has tenderness with her temples but denies visual change Extremity: NARRATIVE EXTREMITY EXAM: Urinary Catheter Management: Brumfield: Cath Placed During This Visit: yes Reason for Continuing Indwelling Catheter: Accurate Measurement of Urinary Output in Critically Ill Patients Urinary Catheter Date of Insertion: 08/03/25 Urinary Catheter Time of Insertion: 00:00 Data 08/04/25 06:59 08/04/25 06:59 Micro: Microbiology 08/02/25 23:35 Blood Culture - Preliminary Blood NEGATIVE TO DATE 08/02/25 23:30 Blood Culture - Preliminary Blood NEGATIVE TO DATE A&P Assessment and plan 1. Septicemia: Patient underwent scraping of the left leg for wound care and later had fever possible cellulitis. Chest x-ray and UA were negative Follow blood cultures Wound cultures requested from the cellulitis of the lower extremities but was not done MRSA screen was negative 2. Bilateral cellulitis of lower leg: Chronically infected leg cannot exclude MRSA but on image stated there is diffuse erythema and patient reports that last time she got better on discharge medications fluconazole, Cipro, cefdinir, valacyclovir suggested MRSA would not have been covered and if she got better then this is not MRSA I am going to stop the vancomycin and repeat labs and follow clinical exam. Anticipate she will need discharge on IV or prolonged oral therapy. Will consult infectious disease service if available 3. Thrombocytopenia: Patient had a drop of more than 50% platelets in the last 30 days Hold heparin or any related products HIT study pending with platelet antibody and serotonin assay and to follow results Mechanical prophylaxis with SCDs requested Bed turning every 2 hour OT PT for adequate mobility of the patient as inpatient Platelet count is stable at 119. Recheck platelet count in the morning. Patient is at high risk of DVT 4. CHF (congestive heart failure): Echo on 07/06/2025 showed ejection fraction of 58% with moderate left-ventricular hypertrophy with diastolic dysfunction. BiPAP diuresis started yesterday and she urinated 5000 cc but intake was 3700. 5. Atrial fibrillation with rapid ventricular response: Continue amiodarone 200 mg daily Heart rate controlled and is currently sinus rhythm at 78 6. Lymphedema: As mentioned above. Start BiPAP and diuresis 7. Primary hypertension: Hold any antihypertensives or blood lowering medications at the moment 8. Anxiety and depression: Continue trazodone 100 mg daily at bedtime 9. Morbid obesity: To be managed outpatient with adequate OT PT and diet management 2000-calorie weight loss diet no sweets desserts caloric drinks Patient was counseled regarding her success at weight loss 60 pounds in 5 months. Continue with calorie counting and weight loss consider GLP-1 if unable to follow diet. Gastric bypass surgery if above measures not successful 10. GERD without esophagitis: PPI daily PDMP PDMP Reviewed: Not Reviewed Attestations 2 Medical Necessity Statement*: Patient remains hospitalized for diuresis, IV antibiotics and awaiting cultures Coding Level of Care Code Acute Code for Chg Fwd Diagnoses Septicemia A41.9 Bilateral cellulitis of lower leg L03.116; L03.115 Thrombocytopenia D69.6 CHF (congestive heart failure) I50.9 Atrial fibrillation with rapid ventricular response I48.91 Lymphedema I89.0 Primary hypertension I10 Hypertension type: primary hypertension Anxiety and depression F41.9; F32.A Morbid obesity E66.01 GERD without esophagitis K21.9 Time Spent (min) 40
[2025-08-04] MEDS: cefTRIAXone 2,000 mg SDV 2000 MG IVP (16:53)
[2025-08-05] VITALS (32 sets, daily range): BP systolic 105–173; BP diastolic 65–91; PULSE 72–93; RESP 16–30; TEMP 36.8–37.4; O2SAT 91–99
[2025-08-05 03:31] LABS: Hematocrit 26.1 % (36-47); Hemoglobin 8.10 g/dL (11.27-16.99); Mean Corpuscular HGB Conc 31.0 g/dL (30-55); Mean Corpuscular Hemoglobin 27.3 pg (27-33); Mean Corpuscular Volume 87.9 fl (85-98); Nucleated Red Blood Cells % 0 %; Platelet Count 105 10^3/cmm (157-399); Red Blood Count 2.97 10^6/uL (3.85-5.65); White Blood Count 6.47 10^3/uL (3.29-11.43)
[2025-08-05 04:00] LABS: Alanine Aminotransferase 14 U/L (0-33); Albumin Level 2.9 g/dL (3.5-5.2); Alkaline Phosphatase 60 U/L (35-105); Anion Gap 13.0 (5-19); Aspartate Amino Transferase 11 U/L (0-32); Blood Urea Nitrogen 10 mg/dL (6-20); Calcium 8.1 mg/dL (8.5-10.5); Carbon Dioxide 28 mmol/L (22-29); Chloride 104 mmol/L (98-107); Creatinine Clr Calc Pharmacy 206.5697; Globulin 4.1 g/dL (1.3-4.6); Glucose 107 mg/dL (65-115); Osmolality Calculated 292 mOsm/kg (285-295); Potassium 4.0 mmol/L (3.5-5.1); Sodium 141 mmol/L (136-145); Total Protein 7.0 g/dL (6.6-8.7)
[2025-08-05 04:03] LABS: Magnesium 1.9 mg/dL (1.7-2.3)
[2025-08-05] MEDS: FUROsemide 10 mg/mL SDV 2mL 20 MG IVP ×2 (04:14→16:56)
[2025-08-05] MEDS: pantoprazole 40 mg SDV IVP (04:19)
--- NOTE | 2025-08-05 08:36 | CT_ITS ---
WS: [id number] CT LEFT LOWER LEG, NONCONTRAST HISTORY: cellulitis, r/o abscess Technique: Noncontrast axial imaging performed through the lower extremity. Reformatted sagittal and coronal imaging. All CT scans at [facility] use at least one of these dose optimization techniques: automated exposure control; mA and/or kV adjustment per patient size (includes targeted exams where dose is matched to clinical indication); or iterative reconstruction. DLP: 621.13 mGy.cm COMPARISON: None available. Noncontrast examination beginning at the knee and extending through the ankle. There is extensive amount of soft tissue edema. Edema begins predominantly within the posterior, dependent portion of the lower extremity and is subcutaneous but extends to the fascial planes. There is muscle atrophy. Soft t issue calcifications are identified. There is mild soft tissue nodularity which may be skin tags or skin lesions. The subcutis edema is much more aggressive at the ankle extending both anterior, posterior and lateral. There is no obvious collection on this unenhanced exam. Tricompartment moderate to severe osteoarthritis at the knee. No fracture is identified. CT/CT lower leg LT wo con* [id number] IMPRESSION: 1. Extensive subcutaneous edema throughout the LEFT lower extremity. 2. No obvious focal well-formed collection to suggest an abscess identified wi thout IV contrast. 3. Muscle atrophy. 4. Moderate to severe osteoarthritic changes at the LEFT knee joint. 5. No fracture.
--- NOTE | 2025-08-05 08:36 | CT_ITS ---
WS: [id number] CT RIGHT LOWER EXTREMITY HISTORY: cellulitis, r/o abscess Technique: Axial imaging with reformatted sagittal and coronal planes. All CT scans at [facility] use at least one of these dose optimization techniques: automated exposure control; mA and/or kV adjustment per patient size (includes targeted exams where dose is matched to clinical indication); or iterative reconstruction. DLP: 629.49 mGy.cm COMPARISON: None available. Extensive subcutaneous soft tissue edema throughout the RIGHT lower extremity. Edema is predominantly along the posterior dependent portion of the lower extremity. Edema becomes much more significant at the ankle. At the ankle subcutaneous edema is circumferential. There is no obvious well-formed fluid collection identified on this unenhanced exam. Soft tissue calcifications with muscle atrophy. Moderate to severe arthropathy RIGHT knee joint. No fractures are identified. CT/CT lower leg RT wo con* [id number] IMPRESSION: 1. Extensive subcu soft tissue edema throughout the RIGHT lower extremity. 2. No focal fluid collection identified on this unenhanced exam. 3. No fracture. 4. Moderate to severe arthropathy RIGHT knee joint.
--- NOTE | 2025-08-05 09:14 | CT_ITS ---
WS: [id number] CT HEAD NONCONTRAST HISTORY: LT SIDE OF FACE DROOPING TECHNIQUE: Contiguous axial imaging performed through the brain. Bone and soft tissue windows. Sagittal and coronal reformats reviewed. All CT scans at [facility] use at least one of these dose optimization techniques: automated exposure control; mA and/or kV adjustment per patient size (includes targeted exams where dose is matched to clinical indication); or iterative reconstruction. DLP: 1133.08 mGy COMPARISON: 08/06/2017 No acute intracranial hemorrhage, midline shift or mass effect. No significant atrophy or small vessel disease. No prior infarct. No hemorrhage. Ventricles: Normal size with no hydrocephalus. No inferior displacement of the cerebellar tonsils. Paranasal sinuses: As visualized are clear. Mastoid air cells: Well pneumatized. Calvarium and scalp: Skull is intact with no soft tissue edema or swelling. CT/CT head thrombolytic [id number] IMPRESSION: Unremarkable noncontrast CT head. No intracranial hemorrhage or infarct identif ied.
[2025-08-05] MEDS: cefepime 2,000 mg SDV 2000 MG IVP ×2 (09:42→16:56)
[2025-08-05] MEDS: oxyCODONE 5 mg IR Tab/Cap PO ×2 (09:54→20:42)
--- NOTE | 2025-08-05 11:42 | PC.SOCIAL ---
IMM update pg 2 of IMM Updated and reviewed w/ patient. Copy provided and copy dated, initialed and placed in chart.
--- NOTE | 2025-08-05 12:40 | P.PN_ITS ---
Subjective 2 Subjective: Hospital course, labs appreciated. Patient laying comfortably in bed. Denies any nausea, vomiting. Complaining of numbness and placed in temporal area on left side of her face. States she is feeling slightly better than yesterday. Vitals/I&O/Wt Last Vital Signs Temp 98.3 F 08/05/25 04:28 Pulse 79 08/05/25 11:59 Resp 24 H 08/05/25 11:59 BP 158/79 08/05/25 09:42 Pulse Ox 96 08/05/25 10:00 O2 Del Method Nasal Cannula 08/05/25 08:33 O2 Flow Rate 2 08/05/25 08:33 FiO2 32 08/05/25 03:04 08/04/25 08/05/25 08/05/25 22:59 06:59 14:59 Intake Total 700 / 1000 660 / 1660 300 / 300 Output Total 1500 / 1500 2150 / 3650 Balance -800 / -500 -1490 / -1990 300 / 300 Weight last 48 hrs Weight 237.229 kg Weight 241.765 kg Physical Exam 2 Narrative: General well-developed morbidly obese female in no acute cardiopulmonary stress CV regular rate and rhythm Lungs clear to auscultation on anterior exam. I am unable to examine the bases Abdomen obese soft. There is some blood from the bellybutton Calves large with chronic venous stasis changes 2+ to 3 edema Headache exam posterior scalp occiput not tender. She has tenderness with her temples but denies visual change Extremity: NARRATIVE EXTREMITY EXAM: Urinary Catheter Management: Brumfield: Cath Placed During This Visit: yes Reason for Continuing Indwelling Catheter: Accurate Measurement of Urinary Output in Critically Ill Patients Urinary Catheter Date of Insertion: 08/03/25 Urinary Catheter Time of Insertion: 00:00 Data 08/05/25 03:17 08/05/25 03:17 Micro: Microbiology 08/04/25 15:00 Wound Culture - Preliminary Foot Left Gram Negative Rods A&P Assessment and plan 1. Septicemia: Most likely in setting of bilateral extensive cellulitis. Appreciate past culture history. History of cellulitis with wound culture growing Serratia and Pseudomonas in the past. Switch from IV ceftriaxone to IV cefepime 2 g every 8 hourly for now. Will await ID recommendations. MRSA screen negative. 2. Bilateral cellulitis of lower leg: Chronically infected leg cannot exclude MRSA but on image stated there is diffuse erythema and patient reports that last time she got better on discharge medications fluconazole, Cipro, cefdinir, valacyclovir suggested MRSA would not have been covered and if she got better then this is not MRSA Will consult surgery for further recommendations with possible need of deep debridement. CT bilateral lower limb to rule out collection. Check ESR, CRP. 3. Thrombocytopenia: Patient had a drop of more than 50% platelets in the last 30 days Hold heparin or any related products HIT study pending with platelet antibody and serotonin assay and to follow results Mechanical prophylaxis with SCDs requested though would be difficult given significant bilateral cellulitis Bed turning every 2 hour OT PT for adequate mobility of the patient as inpatient Platelet count is stable at 119. Recheck platelet count in the morning. Patient is at high risk of DVT 4. CHF (congestive heart failure): Echo on 07/06/2025 showed ejection fraction of 58% with moderate left-ventricular hypertrophy with diastolic dysfunction. Continue with diuresis with 20 mg of Lasix every 12 hourly. Fluid restriction to less than 2500 cc fluid. Monitor BMP. 5. Atrial fibrillation with rapid ventricular response: Continue amiodarone 200 mg daily Heart rate controlled and is currently sinus rhythm at 78 6. Lymphedema: As mentioned above. 7. Primary hypertension: Hold any antihypertensives or blood lowering medications at the moment 8. Anxiety and depression: Continue trazodone 100 mg daily at bedtime 9. Morbid obesity: To be managed outpatient with adequate OT PT and diet management 2000-calorie weight loss diet no sweets desserts caloric drinks Patient was counseled regarding her success at weight loss 60 pounds in 5 months. Continue with calorie counting and weight loss consider GLP-1 if unable to follow diet. Gastric bypass surgery if above measures not successful 10. GERD without esophagitis: PPI daily Plan: Facial numbness: Could be in setting of HSV infection. 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 Patient does have risk factors for stroke given morbid obesity. Will check CT head without contrast for further evaluation. She denies any further weakness, dysarthria or difficulty in swallowing or changes in her vision. Full code Protonix for PUD prophylaxis For pulm for DVT prophylaxis as possible. Not on medical prophylaxis given concern for thrombocytopenia with possible HIT as pending Transfer to Medr floor. PDMP PDMP Reviewed: Not Reviewed Attestations 2 Medical Necessity Statement*: Requires further hospitalization for management of significant bilateral lower limb cellulitis with recurrent admissions and possible need of debridement is ruled out, further evaluation of numbness of face Diagnoses Septicemia A41.9 Bilateral cellulitis of lower leg L03.116; L03.115 Thrombocytopenia D69.6 CHF (congestive heart failure) I50.9 Atrial fibrillation with rapid ventricular response I48.91 Lymphedema I89.0 Primary hypertension I10 Hypertension type: primary hypertension Anxiety and depression F41.9; F32.A Morbid obesity E66.01 GERD without esophagitis K21.9
--- NOTE | 2025-08-05 12:56 | PM.CONSULT ---
Providers/Reason For Consult Consulting Physician/Specialty*: johnson kunz MD general surgery Reason for Consult*: Evaluate legt cellulitis Requesting Physician: MD ralph hospitalist Attending Physician: Colby Klein MD Primary Care Provider: ANDRES Hernandez History of Present Illness History of Present Illness Ziyad Felipe is a 50 year old female since about 2007 has had lymphedema of both legs and worsening. She is seen in wound clinic and had legs washed daily with special liquid then special silver gel into folds of leg. Her wbc is normal but running a fever at home. She had CT of head for vague sensation in head and apparently had CT of legs. She does have legs wrapped with delia wraps every 2 days at home. Review of Systems Narrative: Constitutional: denies rigors, singnificant weight gain, increased appetite HEENT: denies chronic cough, blurry vision, excessive tearing, eye pain, flashing lights, odynophagia, painful mastication, change in voice, change in taste, chronic sore throat, hypersalivation Heart: denies racing heart, palpitations, othropnea, PND Lungs: denies hemoptysis, pain with deep inspiration, chronic bronchitis GI: denies hematemesis, hematochezia, dysphagia, tenesmus : denies polyuria, hematuria, painful micturation Musculoskeletal: denies hemarthrosis, Muscle wasting, Neuro: denies new onset syncope, dysesthesia, dysequilibrium, ptosis eyelid or face SKin: denies new onset hyperalgia, new rash new cyanosis Endocrine: denies new polyuria, polydipsia, polyphagia, heat intolerance, excessive energy Hem/Onc: denies new petechiae, swollen glands, new excessive epstaxis Psych: denies racing thought Medications/Allergies Home Medications ?Medication ?Instructions ?Recorded ?Confirmed ?Last Taken ?Type bumetanide 2 mg tablet 2 mg PO DAILY #120 tabs 05/17/24 08/03/25 07/12/24 Rx hydrocodone 10 mg-acetaminophen 1 tab PO QID PRN pain 06/28/24 08/03/25 07/04/25 History 325 mg tablet cholecalciferol (vitamin D3) 1,250 50,000 unit PO .once weekly #12 02/23/25 08/03/25 Unknown Rx mcg (50,000 unit) capsule caps cefadroxil 500 mg capsule 1,000 mg (2 x 500 mg) PO Q12H PRN 03/16/25 08/03/25 Unknown Rx cellulitis 7 days #28 caps budesonide-formoterol HFA 160 2 puff inhalation BID 07/05/25 08/03/25 07/04/25 History mcg-4.5 mcg/actuation aerosol inhaler (Breyna) tramadol 100 mg tablet,extended 100 mg PO DAILY 07/05/25 08/03/25 Unknown History release 24 hr trazodone 100 mg tablet 100 mg PO BEDTIME 07/05/25 08/03/25 07/04/25 History amiodarone 200 mg tablet (Pacerone) See Rx Instructions .Route 07/11/25 08/03/25 Unknown Rx .COMPLEX #60 tabs aspirin 81 mg tablet,delayed 81 mg PO DAILY 30 days #30 tabs 07/11/25 08/03/25 Unknown Rx release potassium chloride 20 mEq 20 meq PO DAILY 30 days #30 tabs 07/12/25 08/03/25 Unknown Rx tablet,extended release(part/cryst) (Klor-Con M) albuterol sulfate 90 mcg/actuation See Rx Instructions .Route 07/29/25 08/03/25 Unknown Rx aerosol inhaler (Ventolin HFA) .COMPLEX #18 grams Allergies Allergy/AdvReac Type Severity Reaction Status Date / Time amoxicillin (From Augmentin) Allergy HIVES AND Verified 08/02/25 22:59 ITCHING clavulanic acid (From Allergy HIVES AND Verified 08/02/25 22:59 Augmentin) ITCHING meperidine (From Demerol) Allergy HIVES, Verified 08/02/25 22:59 ITCHING AND SHORTNESS OF BREATH Current Medications Generic Name Dose Route Start Last Admin Trade Name Freq PRN Reason Stop Dose Admin Acetaminophen 650 mg 08/03/25 00:44 08/04/25 19:35 Acetaminophen 325 Mg Tablet PO 650 mg Q6H PRN Administration MILD PAIN Albuterol Sulfate 2.5 mg 08/04/25 16:59 08/05/25 08:33 Albuterol 2.5 Mg/3 Ml Neb INHALATION 2.5 mg Q6H.RESP PRN Administration WHEEZING Aspirin 81 mg 08/03/25 05:00 08/05/25 04:14 Aspirin 81 Mg Ec Tablet PO 81 mg DAILY MONAE Administration Cefepime HCl 2,000 mg 08/05/25 08:45 08/05/25 09:42 Cefepime 2,000 Mg Sdv IVP 2,000 mg Q8H MONAE Administration Protocol Furosemide 20 mg 08/03/25 17:00 08/05/25 04:14 Furosemide 10 Mg/Ml Sdv 2ml IVP 20 mg Q12H MONAE Administration Losartan Potassium 50 mg 08/05/25 08:45 08/05/25 09:42 Losartan 50 Mg Tablet PO 50 mg DAILY MONAE Administration Nystatin 1 applic 08/03/25 06:00 08/05/25 04:23 Nystatin Powder 15 Gm Btl TOPICAL 1 applic BID MONAE Administration Ondansetron HCl 4 mg 08/03/25 00:44 08/04/25 13:20 Ondansetron 2 Mg/Ml Sdv 2 Ml IVP 4 mg Q6H PRN Administration NAUSEA AND VOMITING Oxycodone HCl 5 mg 08/03/25 18:40 08/05/25 09:54 Oxycodone 5 Mg Ir Tab/Cap PO 5 mg Q6H PRN Administration MODERATE PAIN Pantoprazole Sodium 40 mg 08/03/25 05:00 08/05/25 04:19 Pantoprazole 40 Mg Sdv IVP 40 mg DAILY MONAE Administration Potassium Chloride 20 meq 08/04/25 17:00 08/05/25 04:14 Potassium Chloride Er 20 Meq Tablet PO 20 meq BID MONAE Administration Pregabalin 50 mg 08/03/25 05:00 08/05/25 04:14 Pregabalin 50 Mg Capsule PO 50 mg BID MONAE Administration Senna 17.2 mg 08/03/25 21:00 08/04/25 20:58 Sennosides 8.6 Mg Tablet PO Not Given BEDTIME MONAE Trazodone HCl 100 mg 08/03/25 21:00 08/04/25 21:39 Trazodone 100 Mg Tablet PO 100 mg BEDTIME MONAE Administration PFSH Acute PFSH: Medical History (Updated 08/03/25 @ 06:20 by Miguel Babb MD) Lymphedema Hypertension Morbid obesity Colon polyps Morbid obesity Venous stasis dermatitis Anasarca Cellulitis of left lower leg Acute diastolic heart failure Cellulitis Bilateral lower leg cellulitis Obesity hypoventilation syndrome Accelerated hypertension Smokes cigarettes Lower limb ulcer, ankle Lymphedema associated with obesity Polycystic ovarian syndrome Longstanding diagnosis, dating back to 2003. Has been on and off treatment for many years. LAURA (obstructive sleep apnea) Osteoarthritis of knees, bilateral Chronic low back pain with left-sided sciatica > 50% of 45 min visit counseling patient regarding weight. Encounter for long-term opiate analgesic use Current every day smoker Degeneration of intervertebral disc of cervical spine without disc herniation Arthralgia of cervical spine Surgical History S/P total abdominal hysterectomy (08/01/20) With RSO. [place]. Deshpande [place] [facility] [place], [place]. Path showed polyp with complex hyperplasia with atypia Status post hysteroscopy (~05/09/20) Hysteroscopy with dilation and curettage with Dr. Paul Deshpande at [facility] History of laparoscopic cholecystectomy (~1993) History of D&C (~09/2003) History of laparoscopy (09/21/18) Dx: Small bowel obstruction. Lysis of adhesions. [place]. Y[place] [facility] [place] History of left salpingo-oophorectomy (01/15/06) Laparotomy. Performed by Dr. Lovelace at [facility] [place]. 10 cm left adnexal cystic mass. History of bariatric surgery (~2016) Laparoscopic gastric sleeve. H/O bariatric surgery (09/14/12) Laparoscopic band. H/O section 12/21/1991, 12/14/1993, 04/17/1995. Family History Father Diabetes Hypertension Social History Smoking and tobacco/nicotine status: former use of tobacco/nicotine Alcohol intake: never Substance/Drug Use: never Vitals/I&O/Wt Last Vital Signs Temp 98.3 F 08/05/25 04:28 Pulse 79 08/05/25 11:59 Resp 24 H 08/05/25 11:59 BP 158/79 08/05/25 09:42 Pulse Ox 96 08/05/25 10:00 O2 Del Method Nasal Cannula 08/05/25 08:33 O2 Flow Rate 2 08/05/25 08:33 FiO2 32 08/05/25 03:04 08/04/25 08/05/25 08/05/25 22:59 06:59 14:59 Intake Total 700 / 1000 660 / 1660 300 / 300 Output Total 1500 / 1500 2150 / 3650 Balance -800 / -500 -1490 / -1989 300 / 300 Weight last 48 hrs Weight 523 lb Weight 533 lb Physical Exam Narrative: Patient is a well developed well nourished and in NAD and is afebrile with vitals stable and is answering questions appropriately with a normal affect and is alert and oriented x3 HEENT: normocephalic with normal external ears and nonicteric, oral mucosa moist and dentition normal for age, trachea midline with no large masses visualized Heart: RRR, no gallops murmurs or rubs, normal PMI with no thrills Lungs: normal excursions, no loud audible wheezing, no subcutaneous emphysema Abdomen: nondistended, no gross hepatosplenomegaly, no masses, no rigidity or rebound, no loud borborygmi Neuro: nonfocal, SMITH, grossly normal sensation Musculoskeletal: good muscle tone, no fasciculations Skin: pink warm and dry with no rashes or ecchymosis Vascular: good radial pulses, no ulceration, less than 2 second capillary refill in hand : deferred left leg with chronic edema from lymphedema but skin is not tight and shiny. SOme new erythema on upper lateral lower leg about 1-14 cm in diameter and along left upper inner thigh right leg : wrapped in aces Urinary Catheter Management: Brumfield: Cath Placed During This Visit: yes Reason for Continuing Indwelling Catheter: Accurate Measurement of Urinary Output in Critically Ill Patients Urinary Catheter Date of Insertion: 08/03/25 Urinary Catheter Time of Insertion: 00:00 Data 08/06/25 04:59 08/06/25 04:59 Micro: Microbiology 08/04/25 15:00 Wound Culture - Preliminary Foot Left Gram Negative Rods A&P Assessment and plan 1. Bilateral cellulitis of lower leg: Antibiotics for mild cellulitis on normal skin proximal to lymphedema. Wash lymphedema with hibiclens soap and rinse off and gently pat dry and thoroughly dry out. Can use unhairing inspector on just air to dry out skin. Follow directions of wound care physician on daily care of lymphedema and wrapping area with delia wrap. Consider irrisept solution (chlorhexidine) that does not have soap component and therefore doesn't need to be washed off. CT does not show any fluid collection or abscess in lymphedema leg sites. PDMP PDMP Reviewed: Not Reviewed Coding Level of Care Code 68053 Diagnoses Bilateral cellulitis of lower leg L03.116; L03.115
--- NOTE | 2025-08-05 21:30 | PM.CONSULT ---
Providers/Reason For Consult Consulting Physician/Specialty*: jillian goodson MD / infectious disease Reason for Consult*: recurrent cellulitis Attending Physician: Colby Klein MD Primary Care Provider: ANDRES Hernandez History of Present Illness History of Present Illness Ziyad Felipe is a 50 year old female with a past medical history significant for lymphedema, congestive heart failure, hypertension, GERD, chronic pain, morbid obesity, cellulitis, sleep apnea, and multiple other comorbidities who presented to the emergency department with worsening redness, swelling and weeping to the left lower extremity and found to have a left lower extremity cellulitis. She states she was in her usual state of health until the day of admission when by the evening she developed a fever of 101 Fahrenheit. This is her third episode of cellulitis since March 2025 and she was trialed previously on a pill in pocket approach with cefadroxil. She started 1 g of p.o. cefadroxil right at the time of onset of symptoms, however 3 hours later continued to have chills and a fever of 104 therefore presented into the emergency room. She has been found to have left lower extremity cellulitis. She was initially started on treatment with ceftriaxone which has now been changed to cefepime given a history of multiple gram-negative rods found on her wound culture from her previous admission. Review of prior admission shows that this is her third episode of cellulitis since March 2025. in 03/2025 blood cx showed Staph epidermidis and staph lugdunensis. Wound cx showed Pseudomonas, serratia, group B strep. After her discharge for cellulitis in March 2025 she had been recommended to start chronic suppression with cefadroxil as most likely culprits were thought to be strep vs staph. She returned to the hospital in July 2025, she had started cefadroxil 1 mg p.o. twice daily at home as a pill in pocket approach however her symptoms did not improve even after 3 days of treatment therefore she was admitted. Blood culture was positive for staph auricularis 1 out of 4 cultures which was deemed to be a contaminant. After discharge blood culture also resulted positive for Staphylococcus lugdunensis. Patient had received meropenem and linezolid on this admission. Hospital course was complicated by herpes stomatitis which improved with addition of Valtrex. Patient has now presented on August 03, 2025 with circumstances as above. Review of Systems General: Reports: 10 or more systems reviewed and unremarkable except in HPI and below Const: Denies: fever(s), chills or body aches Eyes: Denies: change in vision, blurry vision or photophobia ENMT: Reports: hoarseness; Denies: throat pain, enlarged tonsils, odynophagia or nasal congestion Card: Denies: chest pain, palpitations, irregular heart rhythm, edema, swelling of feet/ankles, lightheadedness, pre-syncope, dyspnea on exertion or orthopnea Resp: Denies: dyspnea, productive cough, non-productive cough, wheezing, stridor, pain on inspiration, change in phlegm color, hemoptysis or chest congestion GI: Denies: abdominal pain, nausea, vomiting, hematemesis, coffee ground emesis, dysphagia, heartburn, diarrhea, constipation, GI cramping, change in stool character, hematochezia or melena : Denies: flank pain, difficulty voiding, dysuria, urinary frequency, urinary urgency, urinary hesitancy or hematuria Musc: Denies: neck pain, back pain, extremity pain, joint swelling, joint warmth or deformity Neuro: Denies: headache(s), numbness in extremities, weakness in extremities, sensory changes, difficulty walking, frequent falls, dizziness, vertigo, behavioral changes, Slurred speech present or seizure-like activity Psych: Denies: anxiety, depression, suicidal ideation or homicidal ideation Endo: Denies: polyuria, polydipsia, tired all the time, cold intolerance or hot flashes Eulalio/Lymph: Denies: easy bruising or easy bleeding Medications/Allergies Home Medications ?Medication ?Instructions ?Recorded ?Confirmed ?Last Taken ?Type bumetanide 2 mg tablet 2 mg PO DAILY #120 tabs 05/17/24 08/03/25 07/12/24 Rx hydrocodone 10 mg-acetaminophen 1 tab PO QID PRN pain 06/28/24 08/03/25 07/04/25 History 325 mg tablet cholecalciferol (vitamin D3) 1,250 50,000 unit PO .once weekly #12 02/23/25 08/03/25 Unknown Rx mcg (50,000 unit) capsule caps cefadroxil 500 mg capsule 1,000 mg (2 x 500 mg) PO Q12H PRN 03/16/25 08/03/25 Unknown Rx cellulitis 7 days #28 caps budesonide-formoterol HFA 160 2 puff inhalation BID 07/05/25 08/03/25 07/04/25 History mcg-4.5 mcg/actuation aerosol inhaler (Breyna) tramadol 100 mg tablet,extended 100 mg PO DAILY 07/05/25 08/03/25 Unknown History release 24 hr trazodone 100 mg tablet 100 mg PO BEDTIME 07/05/25 08/03/25 07/04/25 History amiodarone 200 mg tablet (Pacerone) See Rx Instructions .Route 07/11/25 08/03/25 Unknown Rx .COMPLEX #60 tabs aspirin 81 mg tablet,delayed 81 mg PO DAILY 30 days #30 tabs 07/11/25 08/03/25 Unknown Rx release potassium chloride 20 mEq 20 meq PO DAILY 30 days #30 tabs 07/12/25 08/03/25 Unknown Rx tablet,extended release(part/cryst) (Klor-Con M) albuterol sulfate 90 mcg/actuation See Rx Instructions .Route 07/29/25 08/03/25 Unknown Rx aerosol inhaler (Ventolin HFA) .COMPLEX #18 grams Allergies Allergy/AdvReac Type Severity Reaction Status Date / Time amoxicillin (From Augmentin) Allergy HIVES AND Verified 08/02/25 22:59 ITCHING clavulanic acid (From Allergy HIVES AND Verified 08/02/25 22:59 Augmentin) ITCHING meperidine (From Demerol) Allergy HIVES, Verified 08/02/25 22:59 ITCHING AND SHORTNESS OF BREATH Current Medications Generic Name Dose Route Start Last Admin Trade Name Freq PRN Reason Stop Dose Admin Acetaminophen 650 mg 08/03/25 00:44 08/04/25 19:35 Acetaminophen 325 Mg Tablet PO 650 mg Q6H PRN Administration MILD PAIN Albuterol Sulfate 2.5 mg 08/04/25 16:59 08/05/25 20:21 Albuterol 2.5 Mg/3 Ml Neb INHALATION 2.5 mg Q6H.RESP PRN Administration WHEEZING Aspirin 81 mg 08/03/25 05:00 08/05/25 04:14 Aspirin 81 Mg Ec Tablet PO 81 mg DAILY MONAE Administration Cefepime HCl 2,000 mg 08/05/25 08:45 08/05/25 16:56 Cefepime 2,000 Mg Sdv IVP 2,000 mg Q8H MONAE Administration Protocol Furosemide 20 mg 08/03/25 17:00 08/05/25 16:56 Furosemide 10 Mg/Ml Sdv 2ml IVP 20 mg Q12H MONAE Administration Losartan Potassium 50 mg 08/05/25 08:45 08/05/25 09:42 Losartan 50 Mg Tablet PO 50 mg DAILY MONAE Administration Nystatin 1 applic 08/03/25 06:00 08/05/25 16:57 Nystatin Powder 15 Gm Btl TOPICAL 1 applic BID MONAE Administration Ondansetron HCl 4 mg 08/03/25 00:44 08/04/25 13:20 Ondansetron 2 Mg/Ml Sdv 2 Ml IVP 4 mg Q6H PRN Administration NAUSEA AND VOMITING Oxycodone HCl 5 mg 08/03/25 18:40 08/05/25 20:42 Oxycodone 5 Mg Ir Tab/Cap PO 5 mg Q6H PRN Administration MODERATE PAIN Pantoprazole Sodium 40 mg 08/03/25 05:00 08/05/25 04:19 Pantoprazole 40 Mg Sdv IVP 40 mg DAILY MONAE Administration Potassium Chloride 20 meq 08/04/25 17:00 08/05/25 16:56 Potassium Chloride Er 20 Meq Tablet PO 20 meq BID MONAE Administration Pregabalin 50 mg 08/03/25 05:00 08/05/25 16:56 Pregabalin 50 Mg Capsule PO 50 mg BID MONAE Administration Senna 17.2 mg 08/03/25 21:00 08/05/25 20:43 Sennosides 8.6 Mg Tablet PO 17.2 mg BEDTIME MONAE Administration Trazodone HCl 100 mg 08/03/25 21:00 08/05/25 20:42 Trazodone 100 Mg Tablet PO 100 mg BEDTIME MONAE Administration PFSH Acute PFSH: Medical History Lymphedema Hypertension Morbid obesity Colon polyps Morbid obesity Venous stasis dermatitis Anasarca Cellulitis of left lower leg Acute diastolic heart failure Cellulitis Bilateral lower leg cellulitis Obesity hypoventilation syndrome Accelerated hypertension Smokes cigarettes Lower limb ulcer, ankle Lymphedema associated with obesity Polycystic ovarian syndrome Longstanding diagnosis, dating back to 2003. Has been on and off treatment for many years. LAURA (obstructive sleep apnea) Osteoarthritis of knees, bilateral Chronic low back pain with left-sided sciatica > 50% of 45 min visit counseling patient regarding weight. Encounter for long-term opiate analgesic use Current every day smoker Degeneration of intervertebral disc of cervical spine without disc herniation Arthralgia of cervical spine Surgical History S/P total abdominal hysterectomy (08/01/20) With RSO. Performed by Dr. Deshpande at [facility] in [place], [place]. Path showed polyp with complex hyperplasia with atypia Status post hysteroscopy (~05/09/20) Hysteroscopy with dilation and curettage with Dr. Paul Deshpande at [facility] History of laparoscopic cholecystectomy (~1993) History of D&C (~09/2003) History of laparoscopy (09/21/18) Dx: Small bowel obstruction. Lysis of adhesions. Performed by Dr. Yee at [facility]. History of left salpingo-oophorectomy (01/15/06) Laparotomy. Performed by Dr. Lovelace at [facility]. 10 cm left adnexal cystic mass. History of bariatric surgery (~2016) Laparoscopic gastric sleeve. H/O bariatric surgery (09/14/12) Laparoscopic band. H/O section 12/21/1991, 12/14/1993, 04/17/1995. Family History Father Diabetes Hypertension Social History Smoking and tobacco/nicotine status: former use of tobacco/nicotine Alcohol intake: never Substance/Drug Use: never Vitals/I&O/Wt Last Vital Signs Temp 98.3 F 08/05/25 04:28 Pulse 79 08/05/25 20:21 Resp 20 H 08/05/25 20:42 BP 147/83 08/05/25 18:00 Pulse Ox 95 08/05/25 20:21 O2 Del Method Nasal Cannula 08/05/25 20:21 O2 Flow Rate 4 08/05/25 20:21 FiO2 32 08/05/25 03:04 08/05/25 08/05/25 08/05/25 06:59 14:59 22:59 Intake Total 660 / 1660 300 / 300 Output Total 2150 / 3650 1999 / 1999 Balance -1490 / -1990 300 / 300 -1999 / 1700 Weight last 48 hrs Weight 237.229 kg Weight 241.765 kg Physical Exam Narrative: General: No acute distress, AO x3 HEENT: PERRLA, pupils bilaterally equal and reactive, pallors not present Chest: Normal vesicular breath sounds, no added sounds, equal good air entry bilaterally CVS: S1-S2 regular, no murmurs, no tachycardia, no gallops, no rubs Abdomen: Soft, nontender, no organomegaly, bowel sounds present Neuro: No focal deficits, no facial deformity, AO x3, power 5/5 in all limbs ext: Gross Lymphedema, LLE cellulitis Urinary Catheter Management: Brumfield: Cath Placed During This Visit: yes Reason for Continuing Indwelling Catheter: Accurate Measurement of Urinary Output in Critically Ill Patients Urinary Catheter Date of Insertion: 08/03/25 Urinary Catheter Time of Insertion: 00:00 Data 08/07/25 02:45 08/07/25 02:45 Micro: Microbiology 08/04/25 15:00 Wound Culture - Preliminary Foot Left Gram Negative Rods Other data: Patient: Ziyad Felipe Unit #: [id number] : 1975 Age/Sex: 50 / F ADM Date: 08/03/25 Loc: ICU Room/Bed: [place] [address]: Colby Klein MD Ordering Provider/Ordering MD: Colby Klein MD Date of Service: 08/05/25 Procedure(s): CT lower leg LT wo con* [id number] Accession Number(s): [id number] Report Number: [id number] WS: [id number] CT LEFT LOWER LEG, NONCONTRAST HISTORY: cellulitis, r/o abscess Technique: Noncontrast axial imaging performed through the lower extremity. Reformatted sagittal and coronal imaging. All CT scans at [facility] use at least one of these dose optimization techniques: automated exposure control; mA and/or kV adjustment per patient size (includes targeted exams where dose is matched to clinical indication); or iterative reconstruction. DLP: 621.13 mGy.cm COMPARISON: None available. Noncontrast examination beginning at the knee and extending through the ankle. There is extensive amount of soft tissue edema. Edema begins predominantly within the posterior, dependent portion of the lower extremity and is subcutaneous but extends to the fascial planes. There is muscle atrophy. Soft tissue calcifications are identified. There is mild soft tissue nodularity which may be skin tags or skin lesions. The subcutis edema is much more aggressive at the ankle extending both anterior, posterior and lateral. There is no obvious collection on this unenhanced exam. Tricompartment moderate to severe osteoarthritis at the knee. No fracture is identified. CT/CT lower leg LT wo con* [id number] IMPRESSION: 1. Extensive subcutaneous edema throughout the LEFT lower extremity. 2. No obvious focal well-formed collection to suggest an abscess identified without IV contrast. 3. Muscle atrophy. 4. Moderate to severe osteoarthritic changes at the LEFT knee joint. 5. No fracture. A&P Assessment and plan 1. Cellulitis: 50-year-old lady with massive lymphedema, chronic stasis dermatitis, follows with wound care clinic, compliant with lower extremity wraps and lymphedema care. Presents with recurrent left lower extremity cellulitis. Recurring cellulitis in spite of trial of a pill in pocket approach with cefadroxil. Failure of the suppressive approach may be related to infection with gram-negative's including Pseudomonas as were isolated back in March 2025 versus failure of the pill in pocket approach. For now agree with switching ceftriaxone to cefepime. Add vancomycin. Given rapidity of symptoms over 3 to 4 hours, would still suspect Streptococcus to be the likely culprit. Wound cultures thus far showing gram-negative rods pending further identification. Will further evaluate for outpatient treatment and likely switch her to daily suppressive approach while awaiting the final gram-negative rods to be identified. Blood cx negative to date PDMP PDMP Reviewed: Last Reviewed 08/07/25 15:17 by Jillian Goodson MD Coding Level of Care Code Acute Code for Chg Fwd High MDM includes number and complexity of problems actively addressed during encounter, amount and/or complexity of data reviewed/ordered and described risk of complication, morbidity or mortality of management as documented Diagnoses Cellulitis L03.90
[2025-08-06] VITALS (13 sets, daily range): BP systolic 133–169; BP diastolic 71–87; PULSE 64–79; RESP 15–21; TEMP 36.6–36.9; O2SAT 92–98
[2025-08-06] MEDS: cefepime 2,000 mg SDV 2000 MG IVP ×3 (01:22→17:06)
[2025-08-06 05:17] LABS: Hematocrit 26.0 % (36-47); Hemoglobin 8.00 g/dL (11.27-16.99); Mean Corpuscular HGB Conc 30.8 g/dL (30-55); Mean Corpuscular Hemoglobin 26.8 pg (27-33); Mean Corpuscular Volume 87.2 fl (85-98); Nucleated Red Blood Cells % 0 %; Platelet Count 142 10^3/cmm (157-399); Red Blood Count 2.98 10^6/uL (3.85-5.65); White Blood Count 6.48 10^3/uL (3.29-11.43)
[2025-08-06] MEDS: FUROsemide 10 mg/mL SDV 2mL 20 MG IVP ×2 (05:21→17:06)
[2025-08-06] MEDS: pantoprazole 40 mg SDV IVP (05:37)
[2025-08-06 05:43] LABS: Alanine Aminotransferase 15 U/L (0-33); Albumin Level 3.0 g/dL (3.5-5.2); Alkaline Phosphatase 72 U/L (35-105); Anion Gap 11.2 (5-19); Aspartate Amino Transferase 12 U/L (0-32); Blood Urea Nitrogen 10 mg/dL (6-20); Calcium 8.2 mg/dL (8.5-10.5); Carbon Dioxide 29 mmol/L (22-29); Chloride 103 mmol/L (98-107); Creatinine Clr Calc Pharmacy 237.8564; Globulin 4.2 g/dL (1.3-4.6); Glucose 110 mg/dL (65-115); Osmolality Calculated 288 mOsm/kg (285-295); Potassium 4.2 mmol/L (3.5-5.1); Sodium 139 mmol/L (136-145); Total Protein 7.2 g/dL (6.6-8.7)
--- NOTE | 2025-08-06 13:40 | P.PN_ITS ---
Subjective 2 Subjective: No acute events overnight. Patient intraoperatively in bed. Seen on [facility] floor. States she is feeling a lot better. Denies any nausea, vomiting, headache. Vitals/I&O/Wt Last Vital Signs Temp 98.1 F 08/06/25 11:37 Pulse 75 08/06/25 11:37 Resp 20 H 08/06/25 11:37 BP 144/78 08/06/25 11:37 Pulse Ox 93 08/06/25 11:37 O2 Del Method Nasal Cannula 08/06/25 11:37 O2 Flow Rate 3 08/06/25 09:55 FiO2 32 08/05/25 22:28 08/05/25 08/06/25 08/06/25 22:59 06:59 14:59 Intake Total 576.667 / 876.667 503.333 / 503.333 Output Total 1999 2050 / 4050 2300 / 2300 Balance -1999 / 1700 -1473.333 / -3173.333 -1796.667 / -1796.667 Weight last 48 hrs Weight 237.229 kg Weight 237.229 kg Physical Exam 2 Narrative: General well-developed morbidly obese female in no acute cardiopulmonary stress CV regular rate and rhythm Lungs clear to auscultation on anterior exam. I am unable to examine the bases Abdomen obese soft. There is some blood from the bellybutton Calves large with chronic venous stasis changes 2+ to 3 edema Headache exam posterior scalp occiput not tender. She has tenderness with her temples but denies visual change Extremity: NARRATIVE EXTREMITY EXAM: Urinary Catheter Management: Brumfield: Cath Placed During This Visit: yes Reason for Continuing Indwelling Catheter: Other Urinary Catheter Date of Insertion: 08/03/25 Urinary Catheter Time of Insertion: 00:00 Data 08/06/25 04:59 08/06/25 04:59 Micro: Microbiology 08/04/25 15:00 Wound Culture - Preliminary Foot Left Gram Negative Rods A&P Assessment and plan 1. Septicemia: Most likely in setting of bilateral extensive cellulitis. Appreciate past culture history. History of cellulitis with wound culture growing Serratia and Pseudomonas in the past. Switch from IV ceftriaxone to IV cefepime 2 g every 8 hourly for now. Will await ID recommendations. MRSA screen negative. 2. Bilateral cellulitis of lower leg: Chronically infected leg cannot exclude MRSA but on image stated there is diffuse erythema and patient reports that last time she got better on discharge medications fluconazole, Cipro, cefdinir, valacyclovir suggested MRSA would not have been covered and if she got better then this is not MRSA Will consult surgery for further recommendations with possible need of deep debridement. CT bilateral lower limb to rule out collection. Check ESR, CRP. 3. Thrombocytopenia: Patient had a drop of more than 50% platelets in the last 30 days Hold heparin or any related products HIT study pending with platelet antibody and serotonin assay and to follow results Mechanical prophylaxis with SCDs requested though would be difficult given significant bilateral cellulitis Bed turning every 2 hour OT PT for adequate mobility of the patient as inpatient Platelet count is stable at 119. Recheck platelet count in the morning. Patient is at high risk of DVT 4. CHF (congestive heart failure): Echo on 07/06/2025 showed ejection fraction of 58% with moderate left-ventricular hypertrophy with diastolic dysfunction. Continue with diuresis with 20 mg of Lasix every 12 hourly. Fluid restriction to less than 2500 cc fluid. Monitor BMP. 5. Atrial fibrillation with rapid ventricular response: Continue amiodarone 200 mg daily Heart rate controlled and is currently sinus rhythm at 78 6. Lymphedema: As mentioned above. 7. Primary hypertension: Hold any antihypertensives or blood lowering medications at the moment 8. Anxiety and depression: Continue trazodone 100 mg daily at bedtime 9. Morbid obesity: To be managed outpatient with adequate OT PT and diet management 2000-calorie weight loss diet no sweets desserts caloric drinks Patient was counseled regarding her success at weight loss 60 pounds in 5 months. Continue with calorie counting and weight loss consider GLP-1 if unable to follow diet. Gastric bypass surgery if above measures not successful 10. GERD without esophagitis: PPI daily Plan: Facial numbness: Could be in setting of HSV infection. 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 Patient does have risk factors for stroke given morbid obesity. Will check CT head without contrast for further evaluation. She denies any further weakness, dysarthria or difficulty in swallowing or changes in her vision. Full code Protonix for PUD prophylaxis For pulm for DVT prophylaxis as possible. Not on medical prophylaxis given concern for thrombocytopenia with possible HIT as pending Plan for the day: Appreciate ID recommendations. Appreciate surgical recommendations. No plan for debridement. Continue with wound care. Follow-up wound culture. So far growing gram-negative rods. Continue with IV cefepime as per culture sensitivities from past. Added Valtrex. Overall patient on 9 L negative. Monitor electrolytes. Monitor for contraction alkalosis. Continue with current dose of IV Lasix. Fluid restriction to less than 2.5 L. Patient agreeable for same. Discharge plan: Plan to discharge home on oral antibiotics depending on culture sensitivities from wound culture with advised to follow-up with wound care as an outpatient. PDMP PDMP Reviewed: Not Reviewed Attestations 2 Medical Necessity Statement*: Requires further hospitalization for management of significant bilateral lower limb cellulitis with recurrent admissions and possible need of debridement is ruled out, further evaluation of numbness of face Diagnoses Septicemia A41.9 Bilateral cellulitis of lower leg L03.116; L03.115 Thrombocytopenia D69.6 CHF (congestive heart failure) I50.9 Atrial fibrillation with rapid ventricular response I48.91 Lymphedema I89.0 Primary hypertension I10 Hypertension type: primary hypertension Anxiety and depression F41.9; F32.A Morbid obesity E66.01 GERD without esophagitis K21.9
[2025-08-06] MEDS: chlorhexidine gluconate 4% Btl 118 mL 1 APPLIC TOPICAL (15:31)
[2025-08-06] MEDS: oxyCODONE 5 mg IR Tab/Cap PO (21:42)
[2025-08-07] VITALS (11 sets, daily range): BP systolic 152–171; BP diastolic 68–86; PULSE 64–76; RESP 16–19; TEMP 36.2–36.7; O2SAT 94–98
[2025-08-07] MEDS: cefepime 2,000 mg SDV 2000 MG IVP ×3 (01:00→17:48)
[2025-08-07 03:30] LABS: Hematocrit 25.9 % (36-47); Hemoglobin 7.70 g/dL (11.27-16.99); Mean Corpuscular HGB Conc 29.7 g/dL (30-55); Mean Corpuscular Hemoglobin 25.8 pg (27-33); Mean Corpuscular Volume 86.9 fl (85-98); Nucleated Red Blood Cells % 0.4 %; Platelet Count 155 10^3/cmm (157-399); Red Blood Count 2.98 10^6/uL (3.85-5.65); White Blood Count 5.24 10^3/uL (3.29-11.43)
[2025-08-07 03:50] LABS: Alanine Aminotransferase 17 U/L (0-33); Albumin Level 2.8 g/dL (3.5-5.2); Alkaline Phosphatase 74 U/L (35-105); Anion Gap 12.0 (5-19); Aspartate Amino Transferase 15 U/L (0-32); Blood Urea Nitrogen 11 mg/dL (6-20); Calcium 8.2 mg/dL (8.5-10.5); Carbon Dioxide 29 mmol/L (22-29); Chloride 105 mmol/L (98-107); Creatinine Clr Calc Pharmacy 285.4277; Globulin 4.0 g/dL (1.3-4.6); Glucose 94 mg/dL (65-115); Osmolality Calculated 293 mOsm/kg (285-295); Potassium 4.0 mmol/L (3.5-5.1); Sodium 142 mmol/L (136-145); Total Protein 6.8 g/dL (6.6-8.7)
[2025-08-07] MEDS: chlorhexidine gluconate 4% Btl 118 mL 1 APPLIC TOPICAL (04:51)
[2025-08-07] MEDS: FUROsemide 10 mg/mL SDV 2mL 20 MG IVP ×2 (04:53→17:48)
[2025-08-07] MEDS: oxyCODONE 5 mg IR Tab/Cap PO ×2 (05:01→21:09)
[2025-08-07] MEDS: pantoprazole 40 mg SDV IVP (05:02)
--- NOTE | 2025-08-07 12:21 | P.PN_ITS ---
Subjective 2 Subjective: No acute events overnight. Patient has remained hemodynamically stable and afebrile. States leg seems to be improving. Blood pressure slightly elevated though better. Vitals/I&O/Wt Last Vital Signs Temp 97.6 F 08/07/25 12:04 Pulse 66 08/07/25 12:04 Resp 19 H 08/07/25 12:04 BP 153/74 08/07/25 12:04 Pulse Ox 95 08/07/25 12:04 O2 Del Method Nasal Cannula 08/07/25 12:04 O2 Flow Rate 3 08/07/25 08:30 FiO2 32 08/06/25 23:47 08/06/25 08/07/25 08/07/25 22:59 06:59 14:59 Intake Total 540 / 1043.333 300 / 1343.333 240 / 240 Output Total 5100 / 7400 600 / 8000 2850 / 2850 Balance -4560 / -6356.667 -300 / -6656.667 -2610 / -2610 Weight last 48 hrs Weight 237.229 kg Physical Exam 2 Narrative: General well-developed morbidly obese female in no acute cardiopulmonary stress CV regular rate and rhythm Lungs clear to auscultation on anterior exam. I am unable to examine the bases Abdomen obese soft. There is some blood from the bellybutton Calves large with chronic venous stasis changes 2+ to 3 edema Headache exam posterior scalp occiput not tender. She has tenderness with her temples but denies visual change Extremity: NARRATIVE EXTREMITY EXAM: On admission Urinary Catheter Management: Brumfield: Cath Placed During This Visit: yes Reason for Continuing Indwelling Catheter: Other Urinary Catheter Date of Insertion: 08/03/25 Urinary Catheter Time of Insertion: 00:00 Data 08/07/25 02:45 08/07/25 02:45 Micro: Microbiology 08/04/25 15:00 Wound Culture - Final Foot Left Pseudomonas aeruginosa A&P Assessment and plan 1. Septicemia: Most likely in setting of bilateral extensive cellulitis. Appreciate past culture history. History of cellulitis with wound culture growing Serratia and Pseudomonas in the past. Switch from IV ceftriaxone to IV cefepime 2 g every 8 hourly for now. Will await ID recommendations. MRSA screen negative. 2. Bilateral cellulitis of lower leg: Chronically infected leg cannot exclude MRSA but on image stated there is diffuse erythema and patient reports that last time she got better on discharge medications fluconazole, Cipro, cefdinir, valacyclovir suggested MRSA would not have been covered and if she got better then this is not MRSA Will consult surgery for further recommendations with possible need of deep debridement. CT bilateral lower limb to rule out collection. Check ESR, CRP. 3. Thrombocytopenia: Patient had a drop of more than 50% platelets in the last 30 days Hold heparin or any related products HIT study pending with platelet antibody and serotonin assay and to follow results Mechanical prophylaxis with SCDs requested though would be difficult given significant bilateral cellulitis Bed turning every 2 hour OT PT for adequate mobility of the patient as inpatient Platelet count is stable at 119. Recheck platelet count in the morning. Patient is at high risk of DVT 4. CHF (congestive heart failure): Echo on 07/06/2025 showed ejection fraction of 58% with moderate left-ventricular hypertrophy with diastolic dysfunction. Continue with diuresis with 20 mg of Lasix every 12 hourly. Fluid restriction to less than 2500 cc fluid. Monitor BMP. 5. Atrial fibrillation with rapid ventricular response: Continue amiodarone 200 mg daily Heart rate controlled and is currently sinus rhythm at 78 6. Lymphedema: As mentioned above. 7. Primary hypertension: Hold any antihypertensives or blood lowering medications at the moment 8. Anxiety and depression: Continue trazodone 100 mg daily at bedtime 9. Morbid obesity: To be managed outpatient with adequate OT PT and diet management 2000-calorie weight loss diet no sweets desserts caloric drinks Patient was counseled regarding her success at weight loss 60 pounds in 5 months. Continue with calorie counting and weight loss consider GLP-1 if unable to follow diet. Gastric bypass surgery if above measures not successful 10. GERD without esophagitis: PPI daily Plan: Facial numbness: Could be in setting of HSV infection. 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 Patient does have risk factors for stroke given morbid obesity. Will check CT head without contrast for further evaluation. She denies any further weakness, dysarthria or difficulty in swallowing or changes in her vision. Full code Protonix for PUD prophylaxis For pulm for DVT prophylaxis as possible. Not on medical prophylaxis given concern for thrombocytopenia with possible HIT as pending Plan for the day: Appreciate culture results. Consistent with Pseudomonas. Appreciate sensitivities. Unfortunately no oral option is available. Appreciate ID recommendations. Plan to continue current IV antibiotics to finish a 7-day course. Day 3/7 of appropriate antibiotics today. Continue with IV cefepime and vancomycin. Overall 11 L negative. Continue with current diuretic. No concern for contraction alkalosis or electrolyte abnormality for now. Continue to monitor. Discharge plan: Plan to discharge home on oral antibiotics depending on culture sensitivities from wound culture with advised to follow-up with wound care as an outpatient. PDMP PDMP Reviewed: Not Reviewed Attestations 2 Medical Necessity Statement*: Requires further hospitalization for management of bilateral extensive cellulitis in setting of resistant Pseudomonas while patient continues on IV antibiotics Diagnoses Septicemia A41.9 Bilateral cellulitis of lower leg L03.116; L03.115 Thrombocytopenia D69.6 CHF (congestive heart failure) I50.9 Atrial fibrillation with rapid ventricular response I48.91 Lymphedema I89.0 Primary hypertension I10 Hypertension type: primary hypertension Anxiety and depression F41.9; F32.A Morbid obesity E66.01 GERD without esophagitis K21.9
--- NOTE | 2025-08-07 15:19 | PM.PN ---
Subjective Subjective: Cellulitis is improving today. Gram-negative rods identified as Pseudomonas. Medications: Reviewed: Yes Vitals/I&O/Wt Last Vital Signs Temp 97.6 F 08/07/25 12:04 Pulse 66 08/07/25 12:04 Resp 19 H 08/07/25 12:04 BP 153/74 08/07/25 12:04 Pulse Ox 95 08/07/25 12:04 O2 Del Method Nasal Cannula 08/07/25 12:04 O2 Flow Rate 3 08/07/25 08:30 FiO2 32 08/06/25 23:47 08/07/25 08/07/25 08/07/25 06:59 14:59 22:59 Intake Total 300 / 1343.333 780 / 780 Output Total 600 / 8000 2850 / 2850 Balance -300 / -6656.667 -2070 / -2070 Weight last 48 hrs Weight 237.229 kg Physical Exam Narrative: General: No acute distress, AO x3 HEENT: PERRLA, pupils bilaterally equal and reactive, pallors not present Chest: Normal vesicular breath sounds, no added sounds, equal good air entry bilaterally CVS: S1-S2 regular, no murmurs, no tachycardia, no gallops, no rubs Abdomen: Soft, nontender, no organomegaly, bowel sounds present Neuro: No focal deficits, no facial deformity, AO x3, power 5/5 in all limbs ext: Gross Lymphedema, LLE cellulitis Urinary Catheter Management: Brumfield: Cath Placed During This Visit: yes Reason for Continuing Indwelling Catheter: Other Urinary Catheter Date of Insertion: 08/03/25 Urinary Catheter Time of Insertion: 00:00 Data 08/07/25 02:45 08/07/25 02:45 Micro: Microbiology 08/04/25 15:00 Wound Culture - Final Foot Left Pseudomonas aeruginosa [id number]: [facility] #: [id number] AGE/SX: 50/F ROOM: 273 RE08/03/[address]: Colby Klein MD : [id number] BED: 1 DIS: FAX #: STATUS: ADM IN TLOC: Spec #: [id number] Tahir: 08/04/25 Status: COMP Req #: [id number] Recd: 08/04/[address]: Miguel Babb [facility]: [facility] Procedure Result Verified Site Wound Culture Final 08/06/25 Organism 1 Pseudomonas aeruginosa Growth MODERATE MODERATE MIXED SUPERFICIAL ARTUR ON DAY 2 P aerugino M.I.C. RX --------- ------ * Aztreonam >16 R * Cefepime 16 I * Ciprofloxacin >2 R * Imipenem >8 R * Levofloxacin >4 R * Tobramycin <=4 S * Piperacillin/Tazobactam <=16 S A&P Assessment and plan 1. Cellulitis: 50-year-old lady with massive lymphedema, chronic stasis dermatitis, follows with wound care clinic, compliant with lower extremity wraps and lymphedema care. Presents with recurrent left lower extremity cellulitis. Recurring cellulitis in spite of trial of a pill in pocket approach with cefadroxil. Failure of the suppressive approach may be related to infection with gram-negative's including Pseudomonas as were isolated back in March 2025 versus failure of the pill in pocket approach. For now agree with switching ceftriaxone to cefepime. Add vancomycin. Given rapidity of symptoms over 3 to 4 hours, would still suspect Streptococcus to be the likely culprit. Wound cultures thus far showing gram-negative rods pending further identification. Will further evaluate for outpatient treatment and likely switch her to daily suppressive approach while awaiting the final gram-negative rods to be identified. Blood cx negative to date August 07, 2025 Lower extremity cellulitis is improving today. Patient is afebrile. Hemodynamically stable. Wound culture revealed Pseudomonas aeruginosa with intermediate sensitivity to cefepime. Somewhat over the susceptibility pattern with noted resistance to imipenem, aztreonam, intermediate to cefepime and sensitive to piperacillin tazobactam. Given that patient is currently responding well to cefepime and vancomycin, continue the same for now. Would recommend to complete total 7-day course on cefepime and vancomycin and then discharged home. Difficult to pick an agent for chronic suppression given resistance noted to oral ciprofloxacin and levofloxacin. Uncertain if Pseudomonas collected from a wound swab on the leg represents colonization versus the true culprit here given otherwise improvement on cefepime and vancomycin. Discussed with patient that we will attempt suppression with cefadroxil 500 mg p.o. twice daily as a daily suppression at discharge. There is no good oral agent for suppression of Pseudomonas at this time. Will attempt to obtain topical tobramycin with compounding pharmacy. Will discuss further with outpatient pharmacy once they are available on Friday. Please call with any further questions or concerns. PDMP PDMP Reviewed: Last Reviewed 08/07/25 15:17 by Jillian Goodson MD Attestations Medical Necessity Statement*: Per admitting, need for IV antibiotics Coding Level of Care Code Acute Code for [facility] Diagnoses Cellulitis L03.90
[2025-08-07] MEDS: ondansetron 2 mg/ML SDV 2 mL 4 MG IVP (21:09)
[2025-08-08] VITALS (10 sets, daily range): BP systolic 140–169; BP diastolic 61–80; PULSE 62–75; RESP 16–20; TEMP 36.2–36.8; O2SAT 94–99
[2025-08-08] MEDS: cefepime 2,000 mg SDV 2000 MG IVP ×3 (02:09→19:00)
[2025-08-08] MEDS: pantoprazole 40 mg SDV IVP (05:15)
[2025-08-08] MEDS: chlorhexidine gluconate 4% Btl 118 mL 1 APPLIC TOPICAL (05:15)
[2025-08-08] MEDS: FUROsemide 10 mg/mL SDV 2mL 20 MG IVP ×2 (05:15→17:53)
[2025-08-08] MEDS: oxyCODONE 5 mg IR Tab/Cap PO ×2 (05:23→14:40)
--- NOTE | 2025-08-08 11:22 | P.PN_ITS ---
Subjective 2 Subjective: No acute events overnight. States feeling better. BP better but still slightly elevated. Vitals/I&O/Wt Last Vital Signs Temp 97.7 F 08/08/25 07:10 Pulse 62 08/08/25 09:40 Resp 18 08/08/25 09:40 BP 140/77 08/08/25 07:10 Pulse Ox 96 08/08/25 09:40 O2 Del Method Nasal Cannula 08/08/25 09:40 O2 Flow Rate 3 08/08/25 09:40 FiO2 32 08/08/25 04:00 08/07/25 08/08/25 08/08/25 22:59 06:59 14:59 Intake Total 660 / 1440 300 / 1740 660 / 660 Output Total 4830 / 7680 1000 / 8680 Balance -4170 / -6240 -700 / -6940 660 / 660 Weight last 48 hrs Weight 301.4 kg Physical Exam 2 Narrative: General well-developed morbidly obese female in no acute cardiopulmonary stress CV regular rate and rhythm Lungs clear to auscultation on anterior exam. I am unable to examine the bases Abdomen obese soft. There is some blood from the bellybutton Calves large with chronic venous stasis changes 2+ to 3 edema Headache exam posterior scalp occiput not tender. She has tenderness with her temples but denies visual change Extremity: NARRATIVE EXTREMITY EXAM: On admission Urinary Catheter Management: Brumfield: Cath Placed During This Visit: yes Reason for Continuing Indwelling Catheter: Other Urinary Catheter Date of Insertion: 08/03/25 Urinary Catheter Time of Insertion: 00:00 Data 08/07/25 02:45 08/07/25 02:45 Micro: Microbiology 08/02/25 23:35 Blood Culture - Final Blood NO GROWTH AFTER 5 DAYS 08/02/25 23:30 Blood Culture - Final Blood NO GROWTH AFTER 5 DAYS A&P Assessment and plan 1. Septicemia: Most likely in setting of bilateral extensive cellulitis. Appreciate past culture history. History of cellulitis with wound culture growing Serratia and Pseudomonas in the past. Switch from IV ceftriaxone to IV cefepime 2 g every 8 hourly for now. Will await ID recommendations. MRSA screen negative. 2. Bilateral cellulitis of lower leg: Chronically infected leg cannot exclude MRSA but on image stated there is diffuse erythema and patient reports that last time she got better on discharge medications fluconazole, Cipro, cefdinir, valacyclovir suggested MRSA would not have been covered and if she got better then this is not MRSA Will consult surgery for further recommendations with possible need of deep debridement. CT bilateral lower limb to rule out collection. Check ESR, CRP. 3. Thrombocytopenia: Patient had a drop of more than 50% platelets in the last 30 days Hold heparin or any related products HIT study pending with platelet antibody and serotonin assay and to follow results Mechanical prophylaxis with SCDs requested though would be difficult given significant bilateral cellulitis Bed turning every 2 hour OT PT for adequate mobility of the patient as inpatient Platelet count is stable at 119. Recheck platelet count in the morning. Patient is at high risk of DVT 4. CHF (congestive heart failure): Echo on 07/06/2025 showed ejection fraction of 58% with moderate left-ventricular hypertrophy with diastolic dysfunction. Continue with diuresis with 20 mg of Lasix every 12 hourly. Fluid restriction to less than 2500 cc fluid. Monitor BMP. 5. Atrial fibrillation with rapid ventricular response: Continue amiodarone 200 mg daily Heart rate controlled and is currently sinus rhythm at 78 6. Lymphedema: As mentioned above. 7. Primary hypertension: Hold any antihypertensives or blood lowering medications at the moment 8. Anxiety and depression: Continue trazodone 100 mg daily at bedtime 9. Morbid obesity: To be managed outpatient with adequate OT PT and diet management 2000-calorie weight loss diet no sweets desserts caloric drinks Patient was counseled regarding her success at weight loss 60 pounds in 5 months. Continue with calorie counting and weight loss consider GLP-1 if unable to follow diet. Gastric bypass surgery if above measures not successful 10. GERD without esophagitis: PPI daily Plan: Facial numbness: Could be in setting of HSV infection. 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 Patient does have risk factors for stroke given morbid obesity. Will check CT head without contrast for further evaluation. She denies any further weakness, dysarthria or difficulty in swallowing or changes in her vision. Full code Protonix for PUD prophylaxis HIT panel negative. Plt stable. Start on heparin 5000 SQ q12h Plan for the day: Appreciate culture results. Consistent with Pseudomonas. Appreciate sensitivities. Unfortunately no oral option is available. Appreciate ID recommendations. Plan to continue current IV antibiotics to finish a 7-day course. Day 4/7 of appropriate antibiotics today with last dose on . Continue with IV cefepime and vancomycin. Appreciate vanc trough. Overall 16 L negative. Continue with lasix IV 20 mg BID. No concern for contraction alkalosis or electrolyte abnormality for now. Continue to monitor. Discharge plan: Plan to discharge home on oral antibiotics depending on culture sensitivities from wound culture with advised to follow-up with wound care as an outpatient. PDMP PDMP Reviewed: Not Reviewed Attestations 2 Medical Necessity Statement*: Requires further hospitalization for management of bilateral extensive cellulitis in setting of resistant Pseudomonas while patient continues on IV antibiotics Diagnoses Septicemia A41.9 Bilateral cellulitis of lower leg L03.116; L03.115 Thrombocytopenia D69.6 CHF (congestive heart failure) I50.9 Atrial fibrillation with rapid ventricular response I48.91 Lymphedema I89.0 Primary hypertension I10 Hypertension type: primary hypertension Anxiety and depression F41.9; F32.A Morbid obesity E66.01 GERD without esophagitis K21.9
--- NOTE | 2025-08-08 13:36 | PC.SOCIAL ---
*IMM Update* Patient received copy of IMM update. Initialed and dated in chart.
[2025-08-08] MEDS: heparin 5,000 unit/mL INJ 1 mL 5000 UNIT SUBCUT ×2 (14:41→22:32)
[2025-08-09] VITALS (15 sets, daily range): BP systolic 137–167; BP diastolic 64–79; PULSE 64–79; RESP 15–20; TEMP 36.3–36.7; O2SAT 95–99; BMI 92.7
[2025-08-09] MEDS: oxyCODONE 5 mg IR Tab/Cap PO ×2 (00:12→23:54)
[2025-08-09] MEDS: cefepime 2,000 mg SDV 2000 MG IVP ×3 (02:18→17:13)
[2025-08-09] MEDS: pantoprazole 40 mg SDV IVP (05:09)
[2025-08-09] MEDS: FUROsemide 10 mg/mL SDV 2mL 20 MG IVP ×2 (05:09→17:14)
[2025-08-09] MEDS: chlorhexidine gluconate 4% Btl 118 mL 1 APPLIC TOPICAL (05:13)
[2025-08-09 05:19] LABS: Hematocrit 30.3 % (36-47); Hemoglobin 9.00 g/dL (11.27-16.99); Mean Corpuscular HGB Conc 29.7 g/dL (30-55); Mean Corpuscular Hemoglobin 26.6 pg (27-33); Mean Corpuscular Volume 89.6 fl (85-98); Platelet Count 190 10^3/cmm (157-399); Red Blood Count 3.38 10^6/uL (3.85-5.65); White Blood Count 6.99 10^3/uL (3.29-11.43)
[2025-08-09 05:46] LABS: Alanine Aminotransferase 16 U/L (0-33); Albumin Level 2.8 g/dL (3.5-5.2); Alkaline Phosphatase 71 U/L (35-105); Anion Gap 15.4 (5-19); Aspartate Amino Transferase 16 U/L (0-32); Blood Urea Nitrogen 13 mg/dL (6-20); Calcium 8.4 mg/dL (8.5-10.5); Carbon Dioxide 26 mmol/L (22-29); Chloride 101 mmol/L (98-107); Creatinine Clr Calc Pharmacy 338.7609; Globulin 4.2 g/dL (1.3-4.6); Glucose 102 mg/dL (65-115); Osmolality Calculated 286 mOsm/kg (285-295); Potassium 4.4 mmol/L (3.5-5.1); Sodium 138 mmol/L (136-145); Total Protein 7.0 g/dL (6.6-8.7)
[2025-08-09 06:16] LABS: Absolute Segmented Neutrophil 4.5 10/cmm (1.6-7.1); Atypical Lymphs 2.0 % (0-5); Band Neutrophils Absolute 0.3 10^3/cmm (0.0-1.2); Slide Review Slide Review Perform; Total Cells Counted 100 (0-100)
[2025-08-09 06:17] LABS: Polychromasia Trace
[2025-08-09 06:18] LABS: Macrocytosis 1+
[2025-08-09] MEDS: heparin 5,000 unit/mL INJ 1 mL 5000 UNIT SUBCUT ×2 (10:47→23:54)
--- NOTE | 2025-08-09 11:36 | P.PN_ITS ---
Subjective 2 Subjective: No acute events overnight. Patient has remained hemodynamically stable and afebrile. States feeling better. Denies any nausea, vomiting, headache. Vitals/I&O/Wt Last Vital Signs Temp 97.7 F 08/09/25 11:15 Pulse 73 08/09/25 11:15 Resp 16 08/09/25 11:15 BP 167/76 08/09/25 11:15 Pulse Ox 95 08/09/25 11:15 O2 Del Method Nasal Cannula 08/09/25 11:15 O2 Flow Rate 3 08/09/25 11:15 FiO2 32 08/09/25 04:36 08/08/25 08/09/25 08/09/25 22:59 06:59 14:59 Intake Total 660 / 1680 300 / 1980 900 / 900 Output Total 4975 / 6725 2150 / 8875 Balance -4315 / -5045 -1850 / -6895 900 / 900 Weight last 48 hrs Weight 301.4 kg Weight 301.4 kg Physical Exam 2 Narrative: General well-developed morbidly obese female in no acute cardiopulmonary stress CV regular rate and rhythm Lungs clear to auscultation on anterior exam. I am unable to examine the bases Abdomen obese soft. There is some blood from the bellybutton Calves large with chronic venous stasis changes 2+ to 3 edema Headache exam posterior scalp occiput not tender. She has tenderness with her temples but denies visual change Extremity: NARRATIVE EXTREMITY EXAM: On admission Urinary Catheter Management: Brumfield: Cath Placed During This Visit: yes Reason for Continuing Indwelling Catheter: Perioperative Use in Selected Surgeries Urinary Catheter Date of Insertion: 08/03/25 Urinary Catheter Time of Insertion: 00:00 Data 08/09/25 05:00 08/09/25 05:00 Micro: Microbiology 08/02/25 23:35 Blood Culture - Final Blood NO GROWTH AFTER 5 DAYS 08/02/25 23:30 Blood Culture - Final Blood NO GROWTH AFTER 5 DAYS A&P Assessment and plan 1. Septicemia: Most likely in setting of bilateral extensive cellulitis. Appreciate past culture history. History of cellulitis with wound culture growing Serratia and Pseudomonas in the past. Switch from IV ceftriaxone to IV cefepime 2 g every 8 hourly for now. Will await ID recommendations. MRSA screen negative. 2. Bilateral cellulitis of lower leg: Chronically infected leg cannot exclude MRSA but on image stated there is diffuse erythema and patient reports that last time she got better on discharge medications fluconazole, Cipro, cefdinir, valacyclovir suggested MRSA would not have been covered and if she got better then this is not MRSA Will consult surgery for further recommendations with possible need of deep debridement. CT bilateral lower limb to rule out collection. Check ESR, CRP. 3. Thrombocytopenia: Patient had a drop of more than 50% platelets in the last 30 days Hold heparin or any related products HIT study pending with platelet antibody and serotonin assay and to follow results Mechanical prophylaxis with SCDs requested though would be difficult given significant bilateral cellulitis Bed turning every 2 hour OT PT for adequate mobility of the patient as inpatient Platelet count is stable at 119. Recheck platelet count in the morning. Patient is at high risk of DVT 4. CHF (congestive heart failure): Echo on 07/06/2025 showed ejection fraction of 58% with moderate left-ventricular hypertrophy with diastolic dysfunction. Continue with diuresis with 20 mg of Lasix every 12 hourly. Fluid restriction to less than 2500 cc fluid. Monitor BMP. 5. Atrial fibrillation with rapid ventricular response: Continue amiodarone 200 mg daily Heart rate controlled and is currently sinus rhythm at 78 6. Lymphedema: As mentioned above. 7. Primary hypertension: Hold any antihypertensives or blood lowering medications at the moment 8. Anxiety and depression: Continue trazodone 100 mg daily at bedtime 9. Morbid obesity: To be managed outpatient with adequate OT PT and diet management 2000-calorie weight loss diet no sweets desserts caloric drinks Patient was counseled regarding her success at weight loss 60 pounds in 5 months. Continue with calorie counting and weight loss consider GLP-1 if unable to follow diet. Gastric bypass surgery if above measures not successful 10. GERD without esophagitis: PPI daily Plan: Facial numbness: Could be in setting of HSV infection. 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 Patient does have risk factors for stroke given morbid obesity. Will check CT head without contrast for further evaluation. She denies any further weakness, dysarthria or difficulty in swallowing or changes in her vision. Full code Protonix for PUD prophylaxis HIT panel negative. Plt stable. Start on heparin 5000 SQ q12h Plan for the day: Continue with current IV antibiotics to finish a 7-day course with last dose on . Appreciate ID recommendations. Renal function stable. Continue with current IV Lasix. Overall 23 L negative. Discharge plan: Plan to discharge home on oral antibiotics depending on culture sensitivities from wound culture with advised to follow-up with wound care as an outpatient. PDMP PDMP Reviewed: Not Reviewed Attestations 2 Medical Necessity Statement*: Requires further hospitalization for management of bilateral extensive cellulitis in setting of resistant Pseudomonas while patient continues on IV antibiotics Diagnoses Septicemia A41.9 Bilateral cellulitis of lower leg L03.116; L03.115 Thrombocytopenia D69.6 CHF (congestive heart failure) I50.9 Atrial fibrillation with rapid ventricular response I48.91 Lymphedema I89.0 Primary hypertension I10 Hypertension type: primary hypertension Anxiety and depression F41.9; F32.A Morbid obesity E66.01 GERD without esophagitis K21.9
--- NOTE | 2025-08-09 18:37 | P.PN_ITS ---
Subjective 2 Subjective: no new complaints Medications: Reviewed: Yes Vitals/I&O/Wt Last Vital Signs Temp 97.9 F 08/10/25 15:45 Pulse 78 08/10/25 15:55 Resp 16 08/10/25 15:55 BP 156/88 08/10/25 15:45 Pulse Ox 95 08/10/25 15:55 O2 Del Method Nasal Cannula 08/10/25 15:55 O2 Flow Rate 3 08/10/25 15:55 FiO2 3 08/09/25 20:48 08/10/25 08/10/25 08/10/25 06:59 14:59 22:59 Intake Total 300 / 1860 780 / 780 360 / 1140 Output Total 3550 / 6850 850 / 850 1550 / 2400 Balance -3250 / -4990 -70 / -70 -1190 / -1260 Weight last 48 hrs Weight 291.5 kg Weight 293 kg Weight 301.4 kg Physical Exam 2 Narrative: General: No acute distress, AO x3 HEENT: PERRLA, pupils bilaterally equal and reactive, pallors not present Chest: Normal vesicular breath sounds, no added sounds, equal good air entry bilaterally CVS: S1-S2 regular, no murmurs, no tachycardia, no gallops, no rubs Abdomen: Soft, nontender, no organomegaly, bowel sounds present Neuro: No focal deficits, no facial deformity, AO x3, power 5/5 in all limbs ext: Gross Lymphedema, LLE cellulitis Urinary Catheter Management: Brumfield: Cath Placed During This Visit: yes Reason for Continuing Indwelling Catheter: Other Urinary Catheter Date of Insertion: 08/03/25 Urinary Catheter Time of Insertion: 00:00 Data 08/11/25 04:27 08/11/25 04:27 A&P Assessment and plan 1. Acute on chronic diastolic congestive heart failure: 2. Lymphedema: 3. Bilateral cellulitis of lower le. Cellulitis: 50-year-old lady with massive lymphedema, chronic stasis dermatitis, follows with wound care clinic, compliant with lower extremity wraps and lymphedema care. Presents with recurrent left lower extremity cellulitis. Recurring cellulitis in spite of trial of a pill in pocket approach with cefadroxil. Failure of the suppressive approach may be related to infection with gram- negative's including Pseudomonas as were isolated back in March 2025 versus failure of the pill in pocket approach. For now agree with switching ceftriaxone to cefepime. Add vancomycin. Given rapidity of symptoms over 3 to 4 hours, would still suspect Streptococcus to be the likely culprit. Wound cultures thus far showing gram-negative rods pending further identification. Will further evaluate for outpatient treatment and likely switch her to daily suppressive approach while awaiting the final gram-negative rods to be identified. Blood cx negative to date August 07, 2025 Lower extremity cellulitis is improving today. Patient is afebrile. Hemodynamically stable. Wound culture revealed Pseudomonas aeruginosa with intermediate sensitivity to cefepime. Somewhat over the susceptibility pattern with noted resistance to imipenem, aztreonam, intermediate to cefepime and sensitive to piperacillin tazobactam. Given that patient is currently responding well to cefepime and vancomycin, continue the same for now. Would recommend to complete total 7-day course on cefepime and vancomycin and then discharged home. Difficult to pick an agent for chronic suppression given resistance noted to oral ciprofloxacin and levofloxacin. Uncertain if Pseudomonas collected from a wound swab on the leg represents colonization versus the true culprit here given otherwise improvement on cefepime and vancomycin. Discussed with patient that we will attempt suppression with cefadroxil 500 mg p.o. twice daily as a daily suppression at discharge. There is no good oral agent for suppression of Pseudomonas at this time. Will attempt to obtain topical tobramycin with compounding pharmacy. Will discuss further with outpatient pharmacy once they are available on Friday. Please call with any further questions or concerns. Aug 09, 2025 Cellulitis continues to improve. COmplete course of cefepime and vancomycin for 7 days as above. Thereafter will try chronic suppression daily with cefadroxil 500mg BID. Combination skin ointment of tobramycin, mupirocin and terbinafine called in to [facility] compounding [facility] in [place]. Patient instructed to apply daily with special consideration between skin folds on her legs PDMP PDMP Reviewed: Last Reviewed 08/07/25 15:17 by Jillian Goodson MD Attestations 2 Medical Necessity Statement*: per admitting, completing course of iv abx Coding Level of Care Code Acute Code for [facility] Diagnoses Acute on chronic diastolic congestive heart failure I50.33 Heart failure chronicity: acute on chronic Heart failure type: diastolic Lymphedema I89.0 Bilateral cellulitis of lower leg L03.116; L03.115 Cellulitis L03.90
[2025-08-10] VITALS (10 sets, daily range): BP systolic 145–160; BP diastolic 65–88; PULSE 62–94; RESP 15–18; TEMP 36.4–36.9; O2SAT 94–98
[2025-08-10] MEDS: cefepime 2,000 mg SDV 2000 MG IVP ×3 (01:49→18:18)
[2025-08-10] MEDS: FUROsemide 10 mg/mL SDV 2mL 20 MG IVP ×2 (04:14→16:33)
[2025-08-10] MEDS: pantoprazole 40 mg SDV IVP (04:14)
[2025-08-10] MEDS: chlorhexidine gluconate 4% Btl 118 mL 1 APPLIC TOPICAL ×2 (04:15→16:24)
[2025-08-10] MEDS: heparin 5,000 unit/mL INJ 1 mL 5000 UNIT SUBCUT ×2 (11:56→23:15)
--- NOTE | 2025-08-10 12:14 | P.PN_ITS ---
Subjective 2 Subjective: Patient is doing well. She continues to have excellent urine output. She is on 3 L/min O2. She is scheduled for 1 more day of IV antibiotics. 10 system review of system otherwise negative. Medications: Reviewed: Yes Vitals/I&O/Wt Last Vital Signs Temp 97.8 F 08/10/25 11:10 Pulse 73 08/10/25 11:10 Resp 16 08/10/25 11:10 BP 153/75 08/10/25 11:10 Pulse Ox 97 08/10/25 11:10 O2 Del Method Nasal Cannula 08/10/25 11:10 O2 Flow Rate 3 08/10/25 11:10 FiO2 3 08/09/25 20:48 08/09/25 08/10/25 08/10/25 22:59 06:59 14:59 Intake Total 420 / 1560 300 / 1860 240 / 240 Output Total 2075 / 3300 3550 / 6850 Balance -1655 / -1740 -3250 / -4990 240 / 240 Weight last 48 hrs Weight 291.5 kg Weight 293 kg Weight 301.4 kg Physical Exam 2 Narrative: GEN: Alert, morbidly obese Heent: perrla Neck: supple Resp: no respiratory distress, diminished breath sounds but clear Cardio: rrr, S1, S2, no murmur Abd: obese, soft, nontender Extrem: chronic lymphedema with stasis venous changes Skin:; scaling and erythem (erythema more prominent on left) Extremity: NARRATIVE EXTREMITY EXAM: On admission Urinary Catheter Management: Brumfield: Cath Placed During This Visit: yes Reason for Continuing Indwelling Catheter: Perioperative Use in Selected Surgeries Urinary Catheter Date of Insertion: 08/03/25 Urinary Catheter Time of Insertion: 00:00 Data 08/09/25 05:00 08/09/25 05:00 A&P Assessment and plan 1. Septicemia: Present on admission and resolved Secondary to bilateral extensive cellulitis. History of cellulitis with wound culture growing Serratia and Pseudomonas in the past. On IV cefepime and vancomycin ID recommendation sappreciated MRSA screen negative. Blood culture negative 2. Bilateral cellulitis of lower leg: Chronically infected leg cannot exclude MRSA but on image stated there is diffuse erythema and patient reports that last time she got better on discharge medications fluconazole, Cipro, cefdinir, valacyclovir suggested MRSA would not have been covered and if she got better then this is not MRSA Wound culture growing resistant pseudomonas CT showed extensive subcutaneous edema but no fluid collection to suggest abcess. No need for surgical debridement per general surgery. 3. Thrombocytopenia: Patient had a drop of more than 50% platelets in the last 30 days but platelets have normalized HIT panel negative OT PT for adequate mobility of the patient as inpatient 4. Acute on chronic diastolic congestive heart failure: Echo on 07/06/2025 showed ejection fraction of 58% with moderate left-ventricular hypertrophy with diastolic dysfunction. She has been having excellent response to IV diuresis Monitor BMP. 5. Atrial fibrillation with rapid ventricular response: She was in RVR on admission but heart rate was in the controlled Continue amiodarone 200 mg daily 6. Lymphedema: Continue wound care 7. Primary hypertension: Hold any antihypertensives or blood lowering medications at the moment 8. Anxiety and depression: Continue trazodone 100 mg daily at bedtime 9. Morbid obesity: To be managed outpatient with adequate OT PT and diet management 2000-calorie weight loss diet no sweets desserts caloric drinks Patient was counseled regarding her success at weight loss 60 pounds in 5 months. Continue with calorie counting and weight loss consider GLP-1 if unable to follow diet. Gastric bypass surgery if above measures not successful 10. GERD without esophagitis: PPI daily Plan: Facial numbness: Could be in setting of HSV infection. 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 Patient does have risk factors for stroke given morbid obesity. Will check CT head without contrast for further evaluation. She denies any further weakness, dysarthria or difficulty in swallowing or changes in her vision. Full code Protonix for PUD prophylaxis HIT panel negative. Plt stable. Start on heparin 5000 SQ q12h Plan for the day: Continue with current IV antibiotics to finish a 7-day course with last dose tomorrow Renal function stable. Continue with current IV Lasix. Overall 30 L negative. Discharge plan: Plan to discharge home on oral antibiotics depending on culture sensitivities from wound culture with advised to follow-up with wound care as an outpatient. PDMP PDMP Reviewed: Not Reviewed Attestations 2 Medical Necessity Statement*: She needs continued hospitalization for IV antibiotics. Coding Level of Care Code Acute Code for [facility] Diagnoses Septicemia A41.9 Bilateral cellulitis of lower leg L03.116; L03.115 Thrombocytopenia D69.6 Acute on chronic diastolic congestive heart failure I50.33 Heart failure type: diastolic Heart failure chronicity: acute on chronic Atrial fibrillation with rapid ventricular response I48.91 Lymphedema I89.0 Primary hypertension I10 Hypertension type: primary hypertension Anxiety and depression F41.9; F32.A Morbid obesity E66.01 GERD without esophagitis K21.9
[2025-08-10] MEDS: oxyCODONE 5 mg IR Tab/Cap PO (23:14)
[2025-08-11] VITALS (10 sets, daily range): BP systolic 127–152; BP diastolic 68–96; PULSE 70–83; RESP 16–21; TEMP 36.1–37.2; O2SAT 96–98
[2025-08-11] MEDS: cefepime 2,000 mg SDV 2000 MG IVP ×2 (02:40→11:10)
[2025-08-11] MEDS: pantoprazole 40 mg SDV IVP (05:02)
[2025-08-11] MEDS: FUROsemide 10 mg/mL SDV 2mL 20 MG IVP (05:02)
[2025-08-11 05:10] LABS: Hematocrit 31.5 % (36-47); Hemoglobin 9.30 g/dL (11.27-16.99); Mean Corpuscular HGB Conc 29.5 g/dL (30-55); Mean Corpuscular Hemoglobin 25.8 pg (27-33); Mean Corpuscular Volume 87.5 fl (85-98); Nucleated Red Blood Cells % 0 %; Platelet Count 334 10^3/cmm (157-399); Red Blood Count 3.60 10^6/uL (3.85-5.65); White Blood Count 11.35 10^3/uL (3.29-11.43)
[2025-08-11 05:46] LABS: Albumin Level 3.3 g/dL (3.5-5.2); Anion Gap 13.2 (5-19); Blood Urea Nitrogen 17 mg/dL (6-20); Calcium 8.6 mg/dL (8.5-10.5); Carbon Dioxide 29 mmol/L (22-29); Chloride 103 mmol/L (98-107); Creatinine Clr Calc Pharmacy 275.4441; Glucose 101 mg/dL (65-115); Potassium 4.2 mmol/L (3.5-5.1); Sodium 141 mmol/L (136-145)
[2025-08-11 05:54] LABS: Slide Review Slide Review Perform
[2025-08-11] MEDS: heparin 5,000 unit/mL INJ 1 mL 5000 UNIT SUBCUT (11:10)
--- NOTE | 2025-08-11 11:41 | P.DS_ITS ---
Discharge Providers Date of Admission: 08/03/25 00:43 Date of Discharge: August 11, 2025 Attending Provider at Admission: Miguel Babb MD Attending Provider at Discharge: Belle Navarro MD Consults: General surgery Primary Care Provider: ANDRES Hernandez Diagnoses at Discharge Discharge Diagnosis 1. Septicemia: 2. Atrial fibrillation with rapid ventricular response: 3. Bilateral cellulitis of lower le. Acute on chronic diastolic congestive heart failure: 5. Lymphedema: 6. Thrombocytopenia: 7. Primary hypertension: 8. Anxiety and depression: 9. Morbid obesity: 10. GERD without esophagitis: Reason for Visit Reason for Visit: POSSIBLE SEPSIS Brief History: This is a 50-year-old female with morbid obesity, chronic lower extremity lymphedema, chronic diastolic CHF, unspecified atrial fibrillation, hypertension, GERD, anxiety, depression who presented with fever, chills, and sepsis. She was in A-fib with RVR on admission. She was noted to have cellulitis of bilateral lower extremities. She also had significant drop in her platelet count. Hospital Course Hospital Course She was started on IV antibiotics for her cellulitis and has completed a 9-day course. Wound culture grew resistant Pseudomonas. She will need to continue follow-up with wound care as an outpatient. She had A-fib with RVR on admission. She has a known history of atrial fibrillation and was on amiodarone. Heart rate is now controlled. She is not on chronic anticoagulation. Hospital course was complicated by acute on chronic diastolic CHF. She has had excellent response to IV diuresis with greater than 30 L of urine output. She was discharged on bumetanide 2 mg twice daily up from once a day. She will need to get outpatient labs in 1 week to monitor renal function. She will need to follow-up with cardiology in 2 to 4 weeks. Prescription for hospital bed was sent. She needs her head elevated greater than 30 degrees for her CHF. She has chronic lymphedema. Her sister usually does her lymphedema wraps. Outpatient wound care to assess when she should resume those. She had thrombocytopenia on admission with greater than 50% drop in her platelets from prior. HIT panel was negative. Her platelet count is back to normal. She was counseled on weight loss management. Consider GLP-1 if unable to follow diet. Physical Exam Narrative: GEN: Morbidly obese, no acute distress HEENT: Normocephalic, atraumatic, PERRLA Neck: Supple Respiratory: Diminished breath sounds but otherwise clear to auscultation bilaterally Cardiac: Regular rate and rhythm, no murmur Abdomen: Obese Extremity: Lymphedema bilateral lower extremities with scaling and chronic stasis dermatitis changes Neuro: Alert, oriented x 3, no focal neurological deficits Urinary Catheter Management: Brumfield: Cath Placed During This Visit: yes Reason for Continuing Indwelling Catheter: Other Urinary Catheter Date of Insertion: 08/03/25 Urinary Catheter Time of Insertion: 00:00 Discharge Data Studies Completed and Pending Completed Studies During Hospitalization Category Date Time Status CT head thrombolytic 43570 Routine Cat Scan 08/05/25 09:[address] lower leg LT wo con* [id number] Routine Cat Scan 08/05/25 08:[address] lower leg RT wo con* [id number] Routine Cat Scan 08/05/25 08:36 Completed XR chest 1V portable [id number] Stat Exams 08/02/25 23:03 Completed Radiology Impressions Chest X-Ray 08/02/25 23:03 IMPRESSION: 1. Mild cardiomegaly. 2. Findings suggestive of mild vascular congestion. Lower Extremity CT 08/05/25 08:36 IMPRESSION: 1. Extensive subcu soft tissue edema throughout the RIGHT lower extremity. 2. No focal fluid collection identified on this unenhanced exam. 3. No fracture. 4. Moderate to severe arthropathy RIGHT knee joint. Head CT 08/05/25 09:14 IMPRESSION: Unremarkable noncontrast CT head. No intracranial hemorrhage or infarct identified. Laboratory Results WBC 11.35 10^3/uL (3.29-11.43) 08/11/25 04:27 RBC 3.60 10^6/uL (3.85-5.65) L 08/11/25 04:27 Hgb 9.30 g/dL (11.27-16.99) L 08/11/25 04:27 Hct 31.5 % (36-47) L 08/11/25 04:27 MCV 87.5 fl (85-98) 08/11/25 04:27 MCH 25.8 pg (27-33) L 08/11/25 04:27 MCHC 29.5 g/dL (30-55) L 08/11/25 04:27 RDW 16.5 % (12.1-15.1) H 08/11/25 04:27 Plt Count 334 10^3/cmm (157-399) 08/11/25 04:27 MPV 9.6 fL (7.4-10.4) 08/11/25 04:27 Neut % (Auto) 62.8 % 08/11/25 04:27 Lymph % (Auto) 21.0 % 08/11/25 04:27 Traverse % (Auto) 5.7 % 08/11/25 04:27 Eos % (Auto) 3.7 % 08/11/25 04:27 Baso % (Auto) 0.4 % 08/11/25 04:27 Neut # (Auto) 7.12 10^3/uL (1.8-7.7) 08/11/25 04:27 Lymph # (Auto) 2.4 10^3/uL (0.8-4.8) 08/11/25 04:27 Traverse # (Auto) 0.7 10^3/uL (0.2-0.9) 08/11/25 04:27 Eos # (Auto) 0.4 10^3/uL (0.0-0.8) 08/11/25 04:27 Baso # (Auto) 0.1 10^3/uL (0.0-0.1) 08/11/25 04:27 Nucleated RBC % (auto) 0 % 08/11/25 04:27 Total Counted 100 (0-100) 08/09/25 05:00 Atypical Lymphs % 2.0 % (0-5) 08/09/25 05:00 Absolute Neutrophils 4.8 10^3/cmm (1.4-6.5) 08/09/25 05:00 Segmented Neutrophils 64 % 08/09/25 05:00 Band Neutrophils 4.0 % 08/09/25 05:00 Absolute Lymphocytes 1.5 10^3/cmm (1.2-3.4) 08/09/25 05:00 Lymphocytes (Manual) 19 % 08/09/25 05:00 Monocytes (Manual) 3.0 % 08/09/25 05:00 Absolute Monocytes 0.2 10^3/cmm (0.1-0.6) 08/09/25 05:00 Eosinophils (Manual) 2 % 08/09/25 05:00 Absolute Eosinophils 0.1 10^3/cmm (0.0-0.7) 08/09/25 05:00 Basophils (Manual) 0.0 % 08/09/25 05:00 Absolute Basophils 0.0 10^3/cmm (0.0-0.2) 08/09/25 05:00 Metamyelocytes 3.0 % 08/09/25 05:00 Myelocytes 3.0 % 08/09/25 05:00 Nucleated RBCs 3.0 /100WBC (0-1) H 08/09/25 05:00 Nucleated RBCs # 0.0 /100WBC 08/11/25 04:27 Platelet Estimate Decreased (Normal) L 08/09/25 05:00 Polychromasia Trace 08/09/25 05:00 Macrocytosis 1+ H 08/09/25 05:00 ESR 41 mm/hr (0-15) H 08/05/25 13:16 Heparin Require Pat 0.217 OD UNITS 08/03/25 10:03 Specimen Type Arterial 08/02/25 23:35 Sample Site Brachial, right 08/02/25 23:35 ABG pH 7.45 (7.35-7.45) 08/02/25 23:35 ABG pCO2 39.6 mmHg (35-45) 08/02/25 23:35 ABG pO2 52.4 mmHg (80.0-100.0) L 08/02/25 23:35 ABG HCO3 27.4 mmol/L (22-26) H 08/02/25 23:35 ABG O2 Saturation 89.5 08/02/25 23:35 ABG Base Excess 3.1 mmol/L (-2.0-2.0) H 08/02/25 23:35 Gavin Test N/a 08/02/25 23:35 A-a O2 Gradient 6.3 mmHg (5-10) 08/02/25 23:35 Hematocrit 29.8 % (37-47) L 08/02/25 23:35 Hgb O2 Saturation 87.9 % (95-100) L 08/02/25 23:35 Carboxyhemoglobin 1.3 %THgb (0.4-20.1) 08/02/25 23:35 Methemoglobin 0.4 % (0.4-1.5) 08/02/25 23:35 Total Hemoglobin 9.7 g/dL (12-16) L 08/02/25 23:35 Sodium 142.0 mmol/L (131-143) 08/02/25 23:35 Potassium 3.8 mmol/L (3.5-5.0) 08/02/25 23:35 Glucose 132.0 mg/dL (70-115) H 08/02/25 23:35 Ionized Calcium 1.1 mmol/L (1.1-1.4) 08/02/25 23:35 O2 Delivery Device Nc 08/02/25 23:35 O2 Liters/Min 1.0 % 08/02/25 23:35 Financial Assistance Specialist ID [email or web address] 08/02/25 23:35 Sodium 141 mmol/L (136-145) 08/11/25 04:27 Potassium 4.2 mmol/L (3.5-5.1) 08/11/25 04:27 Chloride 103 mmol/L (98-107) 08/11/25 04:27 Carbon Dioxide 29 mmol/L (22-29) 08/11/25 04:27 Anion Gap 13.2 (5-19) 08/11/25 04:27 BUN 17 mg/dL (6-20) 08/11/25 04:27 Creatinine 0.6 mg/dL (0.5-0.9) 08/11/25 04:27 GFR Calculation 105.0 mL/min (90-130) 08/11/25 04:27 Glucose 101 mg/dL (65-115) 08/11/25 04:27 POC Glucose 131 mg/dL (70-110) H 08/05/25 21:33 Calculated Osmolality 286 mOsm/kg (285-295) 08/09/25 05:00 Lactic Acid 2.5 mmol/L (0.5-2.2) H 08/02/25 23:30 Lactic Acid (Sepsis) 2.0 mmol/L (0.5-2.2) 08/03/25 02:00 Lactate 1.4 mmol/L (0.5-2.2) 08/03/25 05:08 Calcium 8.6 mg/dL (8.5-10.5) 08/11/25 04:27 Phosphorus 4.0 mg/dL (2.5-4.5) 08/11/25 04:27 Magnesium 1.9 mg/dL (1.7-2.3) 08/05/25 03:17 Total Bilirubin 0.4 mg/dL (0.15-1.2) 08/09/25 05:00 AST 16 U/L (0-32) 08/09/25 05:00 ALT 16 U/L (0-33) 08/09/25 05:00 Alkaline Phosphatase 71 U/L (35-105) 08/09/25 05:00 Troponin T Baseline 17 ng/L (0-10) H 08/02/25 23:30 Troponin T 120 Minute 23.26 ng/L (0-10) H 08/03/25 01:37 Delta Troponin T 6.26 ABS# (0-10) 08/03/25 01:37 Troponin T Hi Sens 6Hr 23.88 ng/L (0-10) H 08/03/25 05:08 Troponin T Hi Sens 6Hr Delta 6.88 ng/L (0-12) 08/03/25 05:08 C-Reactive Protein 213.9 mg/L (0.0-4.9) H 08/05/25 13:16 NT-Pro-B Natriuret Pep 914 pg/mL (0-125) H 08/02/25 23:30 Total Protein 7.0 g/dL (6.6-8.7) 08/09/25 05:00 Albumin 3.3 g/dL (3.5-5.2) L 08/11/25 04:27 Globulin 4.2 g/dL (1.3-4.6) 08/09/25 05:00 Urine Color Yellow (Yellow) 08/02/25 23:57 Urine Appearance Clear (CLEAR) 08/02/25 23:57 Urine pH 5.5 (5-7) 08/02/25 23:57 Ur Specific [place] 1.020 (1.005-1.030) 08/02/25 23:57 Urine Protein 1+ (Negative) A 08/02/25 23:57 Urine Glucose (UA) Negative (Normal) 08/02/25 23:57 Urine Ketones Negative (Negative) 08/02/25 23:57 Urine Blood Negative (Negative) 08/02/25 23:57 Urine Nitrate Negative (Negative) 08/02/25 23:57 Urine Bilirubin Negative (Negative) 08/02/25 23:57 Urine Urobilinogen 1.0 mg/dL (Negative) 08/02/25 23:57 Ur Leukocyte Esterase Negative (Negative) 08/02/25 23:57 Urine RBC None /hpf (0-2) 08/02/25 23:57 Urine WBC None /hpf (0-5) 08/02/25 23:57 Ur Squamous Epith Cells None /hpf (0-5) 08/02/25 23:57 Amorphous Sediment Not Reportable 08/02/25 23:57 Urine Bacteria None /hpf (NONE) 08/02/25 23:57 Nasal MRSA (PCR) Not detected (Not Detecte) 08/03/25 06:40 Vancomycin Trough 15.5 ug/mL (10-15) H 08/09/25 23:13 Heparin-induced Plt Ab Negative (Negative) 08/03/25 10:03 UF Heparin Result Negative (Negative) 08/03/25 10:03 MARCIN UFH Low Dose 0.1 0 % Release 08/03/25 10:03 MARCIN UFH Low Dose 0.5 0 % Release 08/03/25 10:03 MARCIN UFH High Dose 100 0 % Release 08/03/25 10:03 Influenza A (PCR) Negative (Negative) 08/02/25 23:19 Influenza Type B (PCR) Negative (Negative) 08/02/25 23:19 RSV (PCR) Negative (Negative) 08/02/25 23:19 SARS-CoV-2 (PCR) Negative (Negative) 08/02/25 23:19 Vitals Last Vital Signs Temp 97.8 F 08/11/25 11:15 Pulse 70 08/11/25 11:15 Resp 18 08/11/25 11:15 BP 148/96 08/11/25 11:15 Pulse Ox 97 08/11/25 11:15 O2 Del Method Nasal Cannula 08/11/25 11:15 O2 Flow Rate 3 08/11/25 11:15 FiO2 32 08/11/25 04:50 Discharge Plan Discharge Patient Disposition: Home Health Service Condition: Good Prescriptions: New losartan 50 mg Tablet 75 mg PO DAILY Qty: 30 0RF sennosides [senna] 8.6 mg Tablet 17.2 mg PO BEDTIME Qty: 30 0RF tizanidine 4 mg Tablet 4 mg PO TID PRN (Reason: Muscle Spasms) Qty: 30 0RF clotrimazole 1 % Cream 1 applic topical BID Qty: 113 0RF chlorhexidine gluconate [Nadia-Hex] 4 % Liquid 1 applic topical DAILY Qty: 946 0RF pregabalin 50 mg Capsule 50 mg PO BID Qty: 60 0RF nystatin [Nystop] 100,000 unit/gram Powder 1 applic topical BID Qty: 60 0RF Continued cholecalciferol (vitamin D3) 1,250 mcg (50,000 unit) capsule 50,000 unit PO .once weekly Qty: 12 0RF albuterol sulfate [Ventolin HFA] 90 mcg/actuation HFA aerosol inhaler See Rx Instructions .ROUTE .COMPLEX Qty: 18 3RF Dose Instruction: INHALE TWO PUFFS EVERY 4 HOURS NEEDED FOR SHORTNESS OF BREATH OR WHEEZING Rx Instructions: INHALE TWO PUFFS EVERY 4 HOURS NEEDED FOR SHORTNESS OF BREATH OR WHEEZING hydrocodone-acetaminophen 10-325 mg tablet 1 tab PO QID PRN (Reason: pain) tramadol 100 mg tablet extended release 24 hr 100 mg PO DAILY trazodone 100 mg tablet 100 mg PO BEDTIME budesonide-formoterol [Breyna] 160-4.5 mcg/actuation HFA aerosol inhaler 2 puff inhalation BID amiodarone [Pacerone] 200 mg Tablet See Rx Instructions .ROUTE .COMPLEX Qty: 60 0RF Rx Instructions: 1 tab twice daily for 3 days, followed by 1 tab daily aspirin 81 mg Tablet,Delayed Release (Dr/Ec) 81 mg PO DAILY 30 Days Qty: 30 0RF potassium chloride [Klor-Con M20] 20 mEq tablet,ER particles/crystals 20 meq PO DAILY 30 Days Qty: 30 0RF Changed bumetanide 2 mg tablet 2 mg PO BIDWM Qty: 60 3RF Discontinued cefadroxil 500 mg capsule 1,000 mg PO Q12H PRN (Reason: cellulitis) 7 Days Qty: 28 6RF Rx Instructions: start at first signs of cellulitis, continue for 7 days Discharge Order = DC NOW: Discharge Order (Routine); Ordered 08/11/25 Ordered By: Belle Navarro Other Ambulatory Orders: DME: Hospital Bed (Order) Location: None Selected Ordered By: Belle Navarro Basic Metabolic Panel (Routine) Timeframe: 1 Week Facility: [facility] - Location: Lab - Main Lab Ordered By: Belle Navarro Referrals: [facility] [Outside] Charissa Lundberg FNP [Primary Care Provider, Family Practice] Referral Note: We have notified your physician's clinic of the need for a follow-up appointment to be scheduled. If you have not heard from them within the next 2 business days, please call them directly. Bhavesh Will MD [Physician, Wound Care] - 1 week Referral Note: Please assess for lymphedema Juan Daniel Miller MD [Physician, Cardiology] - 09/13/25 9:00 am Referral Note: Discharge Diet: Cardiac Discharge Activity: Increase activity as tolerated Patient Instructions: Laxative, Stimulant (By mouth), Nystatin (On the skin), Losartan (By mouth), Clotrimazole (Into the mouth), Tizanidine (By mouth), Pregabalin (By mouth), Cellulitis (GEN), Opioid Safety, Patient Portal & Igor Instructions Discharge Attestations Time Spent in Discharge Care*: greater than 30 min Quality Metrics Clinical Quality Measures [ No reported AMI, CVA or VTE this stay] Coding Level of Care Code 41406 Diagnoses Septicemia A41.9 Atrial fibrillation with rapid ventricular response I48.91 Bilateral cellulitis of lower leg L03.116; L03.115 Acute on chronic diastolic congestive heart failure I50.33 Heart failure chronicity: acute on chronic Heart failure type: diastolic Lymphedema I89.0 Thrombocytopenia D69.6 Primary hypertension I10 Hypertension type: primary hypertension Anxiety and depression F41.9; F32.A Morbid obesity E66.01 GERD without esophagitis K21.9
== END 2025-08-11 16:21 | disposition home health service (06) | DRG 871 ==
LOC: ER 08-03 00:45 → ICU 08-03 00:51 → MEDSURG 08-05 19:10
PROVIDERS: Internal Medicine; Student in an Organized Health Care Education/Training Program; Admitting Provider Student in an Organized Health Care Education/Training Program; Emergency Provider Physician Assistant; PCP Nurse Practitioner Family; Visit Provider Student in an Organized Health Care Education/Training Program
DX: A41.52 Sepsis due to Pseudomonas (principal); I50.33 Acute on chronic diastolic (congestive) heart failure; L03.116 Cellulitis of left lower limb; L03.115 Cellulitis of right lower limb; E66.2 Morbid (severe) obesity with alveolar hypoventilation; Z68.45 Body mass index [BMI] 70 or greater, adult; R30.0 Dysuria; I11.0 Hypertensive heart disease with heart failure; K21.9 Gastro-esophageal reflux disease without esophagitis; D69.6 Thrombocytopenia, unspecified; I89.0 Lymphedema, not elsewhere classified; R20.0 Anesthesia of skin; R51.9 Headache, unspecified; I48.91 Unspecified atrial fibrillation; F41.9 Anxiety disorder, unspecified; F32.A Depression, unspecified; Z79.899 Other long term (current) drug therapy; Z79.82 Long term (current) use of aspirin; Z88.8 Allergy status to other drugs, medicaments and biological substances; Z88.1 Allergy status to other antibiotic agents; Z91.02 Food additives allergy status; Z86.0100 Personal history of colon polyps, unspecified; Z87.891 Personal history of nicotine dependence; Z71.3 Dietary counseling and surveillance
CPT/HCPCS: 36415; 36416; 36600; 51702; 70450; 71045; 73700; 80048; 80051; 80053; 80069; 80202; 81001; 82330; 82805; 82962; 83605; 83735; 83880; 84100; 84484; 85007; 85025; 85651; 86022; 86140; 87040; 87070; 87077; 87186; 87637; 93005; 94640; 94660; 96365; 96372; 96375; 97597; 97598; 99285; J0692; J0696; J1644; J1938; J2270; J2405; J2470; J3372; J3373; J3475; J7030; J7120; J7613; J9999

== ENCOUNTER → 2025-08-09 10:00 | Outpatient (BNVA) | payer MEDICARE, MEDICAID, SELFPAY | PROVIDERS: PCP Nurse Practitioner Family; Visit Provider Thoracic Surgery (Cardiothoracic Vascular Surgery) | DX: Z51.89 Encounter for other specified aftercare (principal) | CPT/HCPCS: 97597 ==

== ENCOUNTER → 2025-08-15 09:36 | Outpatient (BNVA) | payer MEDICARE, MEDICAID, SELFPAY | PROVIDERS: PCP Nurse Practitioner Family; Visit Provider Thoracic Surgery (Cardiothoracic Vascular Surgery) | DX: I96 Gangrene, not elsewhere classified (principal); L97.821 Non-pressure chronic ulcer of other part of left lower leg limited to breakdown of skin; L03.116 Cellulitis of left lower limb | CPT/HCPCS: 97597 ==

== ENCOUNTER → 2025-08-18 12:45 | Outpatient (BNVA) | payer MEDICARE, MEDICAID, SELFPAY | PROVIDERS: PCP Nurse Practitioner Family; Visit Provider Family Medicine | DX: D69.6 Thrombocytopenia, unspecified (principal); L03.90 Cellulitis, unspecified; I48.91 Unspecified atrial fibrillation | CPT/HCPCS: 80053; 85025 ==

== ENCOUNTER → 2025-08-22 10:06 | Outpatient (BNVA) | payer MEDICARE, MEDICAID, SELFPAY | PROVIDERS: PCP Nurse Practitioner Family; Visit Provider Thoracic Surgery (Cardiothoracic Vascular Surgery) | DX: Z09 Encounter for follow-up examination after completed treatment for conditions other than malignant neoplasm (principal); Z87.2 Personal history of diseases of the skin and subcutaneous tissue | CPT/HCPCS: 99212 ==

== ENCOUNTER → 2025-09-13 09:39 | Outpatient (BNVA) | payer MEDICARE, MEDICAID, SELFPAY | PROVIDERS: PCP Nurse Practitioner Family; Visit Provider Internal Medicine Cardiovascular Disease | DX: I48.20 Chronic atrial fibrillation, unspecified (principal); I11.0 Hypertensive heart disease with heart failure; I50.9 Heart failure, unspecified; Z01.810 Encounter for preprocedural cardiovascular examination; Z87.891 Personal history of nicotine dependence; R07.9 Chest pain, unspecified; I48.91 Unspecified atrial fibrillation | CPT/HCPCS: 36415; 84443; 93005; 99214 ==